=== PATIENT | female | born 1990 | race Caucasian/White ===

== ENCOUNTER 2017-01-20 21:54 | Emergency (ER) | payer MEDICAID ==
[~2017-01-20] VITALS: Ht 154.9 cm; Wt 92.9 kg
[~2017-01-20 21:54] MED LIST: ACET-62 PO; FLUT1DIS5 ORAL INH; IBUP-1547 PO; MONT10TA25 PO; OLAN2.5T22 PO; ONDA4TAB7 PO; PALI3TAB PO; PROC10TA PO; SUCR1TAB PO
--- OUTSIDE RECORDS SUMMARY | 2017-01-20 21:58 | XMS REPORT | Referral Summary ---
Author Author [facility] Organization [facility] Address Unknown Phone Unavailable Care Team Providers Care Mortar Maker Name Role Phone [place] [facility] Primary Care Physician Unavailable Encounter [facility] [id number] Date(s): 04/15/16 - 04/16/16 [facility] [address] [place] [address] Discharge Diagnosis: Dizziness Discharge Diagnosis: Carbon Monoxide Exposure Discharge Disposition: 01-Home or Self Care Attending Physician: Presley Frias MD Admitting Physician: Presley Frias MD Vital Signs Most recent to 1 oldest [Reference Range]: Temperature Oral 36.1 degC [35.8-37.3 degC] (04/15/16 10:28 PM) Peripheral Pulse 88 bpm Rate [60-100 bpm] (04/15/16 10:28 PM) Heart Rate Monitored 0 bpm [60-100 bpm] *LOW* (04/15/16 11:00 PM) Respiratory Rate 18 br/min [14-20 br/min] (04/15/16 11:00 PM) Blood Pressure 127/85 mmHg [90-140/60-90 mmHg] (04/15/16 11:00 PM) Mean Arterial 101 mmHg Pressure, Cuff (04/15/16 11:00 PM) SpO2 87 % (04/15/16 10:28 PM) Problem List Condition Effective Dates Status Health Status Informant Acid Active patient reflux(Confirmed) Acute Active pain(Confirmed) ADD(Confirmed) Active Allergic rhinitis, Active cause unspecified(Confirme d) Anemia(Confirmed) Active Anxiety state Active (finding)(Confirmed) Asthma(Confirmed) Active Asthma without Active status asthmaticus (disorder)(Confirmed ) Atypical chest Active pain(Confirmed) Bronchitis(Confirmed Resolved ) Chest Resolved pain(Confirmed) Chest wall Active pain(Confirmed) Contusion of Active hand(Confirmed) Acute Active costochondritis(Conf irmed) Depressive disorder, Active not elsewhere classified(Confirmed ) 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) Heart Active murmur(Confirmed) Hiatal Active hernia(Confirmed) IBS (irritable bowel Active syndrome)(Confirmed) Morbid Active patient obesity(Confirmed) Morbid Active patient obesity(Confirmed) L CN 10/30/13 Active Palsy(Confirmed) Seizure Active disorder(Confirmed) 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 Medications acetaminophen 500 mg oral tablet 500 mg 1 tabs, Oral, q4hr, as needed for pain, # 12 tabs, 0 Refill(s) Start Date: 01/25/16 Stop Date: 01/24/17 Status: Ordered Advair Diskus 250 mcg-50 mcg inhalation powder See Instructions, INHALE 1 PUFF BY INHALATION ROUTE 2 TIMES EVERY DAY IN THE MORNING AND EVENING APPROXIMATELY 12 HOURS APART, # 1 unknown unit, eRx: [id number], INHALE 1 PUFF BY INHALATION ROUTE 2 TIMES EVERY DAY IN THE MORNING AND EV... Start Date: 02/25/15 Status: Ordered Carafate 1 g/10 mL oral suspension 10 mL, Oral, QIDACHS, # 280 mL, 0 Refill(s), Pharmacy: [facility], 10 mL Oral QIDACHS Start Date: 02/15/16 Status: Ordered cetirizine 10 mg oral tablet 10 mg 1 tabs, Oral, Daily, # 30 tabs, 5 Refill(s), Pharmacy: [facility] [id number], 1 tabs Oral Daily Start Date: 09/01/15 Status: Ordered Claritin mg, 0 Refill(s) Start Date: 01/23/16 Status: Ordered cyclobenzaprine 10 mg oral tablet 10 mg 1 tabs, Oral, TID, as needed for spasm, # 12 tabs, 0 Refill(s) Start Date: 01/30/16 Stop Date: 01/29/17 Status: Ordered ibuprofen 600 mg oral tablet 600 mg 1 tabs, Oral, QID, as needed for pain, # 40 tabs, 0 Refill(s) Start Date: 03/04/16 Status: Ordered Invega Oral, qAM, 0 Refill(s) Start Date: 03/03/16 Status: Ordered loratadine 0 Refill(s) Start Date: 01/23/16 Status: Ordered meloxicam 15 mg oral tablet 15 mg 1 tabs, Oral, Daily, # 30 tabs, 0 Refill(s) Start Date: 12/12/15 Status: Ordered ProAir HFA 90 mcg/inh inhalation aerosol See Instructions, 2-4 puffs every 4-6 hrs prn., # 1 Each, 1 Refill(s), Pharmacy : [facility] [id number] Start Date: 06/11/15 Status: Ordered promethazine 25 mg oral tablet 25 mg 1 tabs, Oral, q4hr, Nausea or Vomiting, # 12 tabs, 0 Refill(s) Start Date: 03/07/16 Status: Ordered Singulair qPM, 0 Refill(s) Start Date: 01/23/16 Status: Ordered Vitamin D3 1,000 Intl_Units, Oral, Daily, 0 Refill(s) Start Date: 10/26/14 Status: Ordered Zofran 4 mg oral tablet 4 mg 1 tabs, Oral, Once, # 10 tabs, 0 Refill(s) Start Date: 03/19/16 Status: Ordered Results Blood Gases Most recent to 1 2 oldest [Reference Range]: pH [7.35-7.45] 7.39 (04/15/16 11:50 PM) pCO2 Art [35-45 37 mmHg mmHg] (04/15/16 11:50 PM) Bicarbonate [22-26 22 mEq/L mEq/L] (04/15/16 11:50 PM) Base Excess Art -3 [0-2] *LOW* (04/15/16 11:50 PM) O2 Sat Art 96.4 % [90.0-97.0 %] (04/15/16 11:50 PM) pO2 Art [80-100 87 mmHg mmHg] (04/15/16 11:50 PM) O2 Panel Room Air Room Air (04/15/16 11:50 PM) (04/15/16 11:50 PM) Spec Site Radial-R Radial-R (04/15/16 11:50 PM) (04/15/16 11:50 PM) Chemistry Most recent to 1 2 oldest [Reference Range]: Sodium Venous 138 mEq/L [136-144 mEq/L] (04/16/16 12:39 AM) Potassium Venous 3.9 mEq/L 1 [3.6-5.1 mEq/L] (04/16/16 12:39 AM) Calcium Ionized 1.22 mmol/L Venous [1.19-1.41 (04/16/16 12:39 AM) mmol/L] Total CO2 Venous 21 mEq/L [25-29 mEq/L] *LOW* (04/16/16 12:39 AM) HGB Venous NPT 9.5 gm/dL [12.0-16.0 gm/dL] *LOW* (04/16/16 12:39 AM) HCT Venous 28.0 % [37.0-47.0 %] *LOW* (04/16/16 12:39 AM) Glucose Venous 99 mg/dL [70-100 mg/dL] (04/16/16 12:39 AM) BUN Venous [4-20] 9 (04/16/16 12:39 AM) Creatinine Venous 0.8 mg/dL [0.4-1.0 mg/dL] (04/16/16 12:39 AM) Venous CL [99-109 108 mEq/L mEq/L] (04/16/16 12:39 AM) Anion Gap, Darron 9 [3-20] (04/16/16 12:39 AM) 1Result Comment: This test was performed on a whole blood specimen. The presence or absence of hemolysis cannot be assessed. Hemolysis can falsely elevate potassium levels. Normals are for venous specimens only. Immunizations Vaccine Date Refusal Reason pneumococcal 23-polyvalent vaccine 11/18/14 Procedures Procedure Date Related Diagnosis Body Site Arterial puncture, withdrawal of blood for 04/15/16 diagnosis Esophagogastroduodenoscopy Foreign Body 01/06/16 Removal1 Procedure with Anesthesia2 01/06/16 Esophagogastroduodenoscopy Balloon Dilat3 02/14/15 Examination Under Anesthesia4 02/14/15 Adenoidectomy Bilateral tubal ligation Bronchoscope Cardiac catheterization, combined right and left heart Tonsillectomy Tympanostomy [place] tooth 1auto-populated from documented surgical case 2auto-populated from documented surgical case 3auto-populated from documented surgical case 4auto-populated from documented surgical case Social History Social History Type Response Smoking Status Former smoker; Type: Cigarettes; Tobacco use per day: 1 Pack ; Concerns about tobacco use in household: No1, 2 1pt quit smoking 1 month ago 2quit 05/2015 Assessment and Plan No data available for this section
--- OUTSIDE RECORDS SUMMARY | 2017-01-20 21:58 | XMS REPORT | Referral Summary ---
Author Organization Unknown Address Unknown Phone Unavailable Care Team Providers Care Supervisor General Name Role Phone Pardeep Poole Primary Care Physician [phone] Encounter [facility] Date(s): 12/30/14 - 12/30/14 [facility] [address] [place] [id number] Discharge Diagnosis: Hernia, hiatal Discharge Disposition: Home or Self Care Attending Physician: Carly Crump APRN Admitting Physician: Carly Crump APRN Vital Signs Most recent to 1 oldest [Reference Range]: Peripheral Pulse 81 bpm Rate [60-100 bpm] (12/30/14 8:52 AM) Respiratory Rate 18 br/min [14-20 br/min] (12/30/14 8:52 AM) Blood Pressure 110/80 mmHg [90-140/60-90 mmHg] (12/30/14 8:52 AM) Most recent to 1 oldest [Reference Range]: SpO2 97 % (12/30/14 8:52 AM) Problem List Condition Effective Dates Status Health Status Informant Acid Active patient reflux(Confirmed) Acute Active pain(Confirmed) ADD(Confirmed) Active Allergic rhinitis, Active cause unspecified(Confirme d) Anemia(Confirmed) Active Anxiety state Active (finding)(Confirmed) Asthma without Active status asthmaticus (disorder)(Confirmed ) Bronchitis(Confirmed Resolved ) Chest Resolved pain(Confirmed) Depressive disorder, Active not elsewhere classified(Confirmed ) 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 Medications acetaminophen 500 mg/5 mL oral liquid 10 mL, Oral, q6hr, as needed for pain, # 300 mL, 0 Refill(s), Pharmacy: [facility] [id number], 10 mL Oral q6hr,PRN:as needed for pain Start Date: 12/24/14 Status: Ordered Advair Diskus 250 mcg-50 mcg inhalation powder See Instructions, INHALE 1 PUFF BY INHALATION ROUTE 2 TIMES EVERY DAY IN THE MORNING AND EVENING APPROXIMATELY 12 HOURS APART, # 1 unknown unit, 1 Refill(s) , eRx: [facility] [id number], INHALE 1 PUFF BY INHALATION ROUTE 2 TIMES EVERY DAY IN THE M... Special Instructions: INHALE 1 PUFF BY INHALATION ROUTE 2 TIMES EVERY DAY IN THE MORNING AND EVENING APPROXIMATELY 12 HOURS APART Start Date: 12/02/14 Status: Ordered Flonase 50 mcg/inh nasal spray 2 sprays, Nasal, Daily, # 1 Each, 5 Refill(s), Pharmacy: [facility] [id number] Start Date: 12/03/14 Status: Ordered FLUoxetine 20 mg, Oral, qAM, 0 Refill(s) Start Date: 11/18/14 Status: Ordered imipramine 25 mg oral tablet 2 tabs, Oral, Bedtime (once a day), # 60 tabs, 3 Refill(s), Pharmacy: [facility] [id number], 2 tabs Oral Bedtime (once a day) Start Date: 12/30/14 Status: Ordered Latuda 60 mg, Oral, qPM, with food, 0 Refill(s) Special Instructions: with food Start Date: 03/29/14 Status: Ordered levETIRAcetam 1,500 mg, Oral, BID, 0 Refill(s) Start Date: 11/18/14 Status: Ordered loratadine 10 mg, Oral, Daily, 0 Refill(s) Start Date: 10/26/14 Status: Ordered mirtazapine 45 mg, Oral, Bedtime (once a day), 0 Refill(s) Start Date: 11/18/14 Status: Ordered [place] 5 mg-325 mg oral tablet 1 tabs, Oral, q6hr, as needed for pain, 0 Refill(s) Start Date: 12/19/14 Status: Ordered pantoprazole 40 mg oral delayed release tablet 1 tabs, Oral, BID, # 60 tabs, 0 Refill(s) Start Date: 12/30/14 Status: Ordered Vimpat 100 mg oral tablet 1 tabs, Oral, BID, # 60 tabs, 2 Refill(s) Start Date: 10/08/14 Status: Ordered Vitamin D3 1,000 Intl_Units, Oral, Daily, 0 Refill(s) Start Date: 10/26/14 Status: Ordered Zofran ODT 4 mg oral tablet, disintegrating 1 tabs, Oral, TID, as needed for nausea/vomiting, # 10 tabs, 0 Refill(s) Start Date: 11/21/14 Status: Ordered Results No data available for this section Immunizations Vaccine Date Refusal Reason pneumococcal 23-polyvalent vaccine 11/18/14 Procedures Procedure Date Related Diagnosis Body Site Adenoidectomy Bilateral tubal ligation Bronchoscope Tonsillectomy Tympanostomy [place] tooth Social History Social History Type Response Smoking Status Former smoker Assessment and Plan Extracted from: Title: Office Visit Note Author: Carly Crump APRN Date: 12/30/14 Assessment/Plan Hernia, hiatal Handout from [facility] to explain physiology. She may have continued chest pain. Will augment current plan with trial of Imipramine (per [facility]) and follow in one month. Continue Protonix as directed. Ordered: Office Visit Level 4 Est 08122 Orders: imipramine, 2 tabs, Oral, Bedtime (once a day), # 60 tabs, 3 Refill(s) , [id number], 2 tabs Oral Bedtime (once a day)
--- OUTSIDE RECORDS SUMMARY | 2017-01-20 21:58 | XMS REPORT | Continuity of Care Document ---
Author Author [facility] Organization [facility] Address Unknown Phone Unavailable Care Team Providers Care Screen Printing Cloth Spreader Name Role Phone Sarah Poole Primary Care Physician [phone] Source Comments Some departments are not documenting in the electronic medical record. If you do not see the information that you expected, contact Release of Information in the Health Information Management department at [phone] for further assistance in locating additional records.[facility] Active Allergies and Adverse Reactions Allergen Noted Date Severity Reactions Comments Hay Fever And Allergy 01/21/2014 SNEEZING Relief Nexium 07/11/2014 RASH Omeprazole 01/21/2014 RASH Current Medications Prescription Sig. Disp. Refills Start End Date Status Date FLUoxetine (PROZAC) 20 Take 20 mg by mouth Active mg/5 mL oral solution daily. fluticasone-salmeterol Inhale 1 Puff by mouth Active (ADVAIR DISKUS) 250-50 every 12 hours. mcg inhalation disk loratadine (CLARITIN) 10 Take 10 mg by mouth Active mg tablet daily. hydrocortisone (ANTI-ITCH Apply to affected area Active (HC)) 1 % topical cream as Needed. albuterol 0.5% Inhale 2.5 mg solution as Active (PROVENTIL; VENTOLIN) 2.5 directed every 6 hours as mg/0.5 mL nebu nebulizer needed. solution albuterol (PROAIR HFA) 90 Inhale 2 Puffs by mouth Active mcg/actuation inhaler every 6 hours as needed. acetaminophen (TYLENOL) Take 15 mg/kg by mouth Active 160 mg/5 mL oral liquid every 4 hours as needed. LEVETIRACETAM (KEPPRA PO) Take 50 mg by mouth twice Active daily. mirtazapine (REMERON) 45 Take 45 mg by mouth at Active mg tablet bedtime daily. LURASIDONE HCL (LATUDA Take 40 mg by mouth Active PO) daily. Pantoprazole 40 mg grps Take 40 mg by mouth twice 60 Each 1 11/25/19 Active daily before meals. 15 Active Problems Problem Noted Date Non-compliant patient 11/11/2014 Esophagitis 07/11/2014 Dysphagia 01/23/2014 Overview: To solids Esophageal stricture 01/23/2014 Developmental delay 01/23/2014 Immunizations Name Dates Previously Given Next Due Pneumococcal Vaccine 05/16/2014 (23-[place] Adult) Social History Tobacco Use Types Packs/Day Years Used Date Former Smoker Cigarettes 0.2 6 12/21/2013 - 05/18/2014 Smokeless Tobacco: Never Used Comments: 1-2 cig aday Alcohol Use Drinks/Week oz/Week Comments Yes 1 Cans of 0.6 using two years beer Last Filed Vital Signs Vital Sign Reading Time Taken Blood Pressure 123/80 11/11/2014 3:43 PM DRAPERY CUTTER MACHINE Pulse 75 11/11/2014 3:43 PM DRAPERY CUTTER MACHINE Temperature 36.4 C (97.6 F) 11/11/2014 3:43 PM DRAPERY CUTTER MACHINE Respiratory Rate 16 11/11/2014 3:43 PM DRAPERY CUTTER MACHINE Height 1.549 m (5' 1") 11/11/2014 3:43 PM DRAPERY CUTTER MACHINE Weight 106.595 kg (235 lb) 11/11/2014 3:43 PM DRAPERY CUTTER MACHINE Body Mass Index 44.43 11/11/2014 3:43 PM DRAPERY CUTTER MACHINE Oxygen Saturation 99% 08/20/2014 10:54 AM DRAPERY CUTTER MACHINE Plan of Care Health Maintenance Due Date Last Done Comments Physical (Comprehensive) 1996 Exam Pertussis Vaccine 2000 Tetanus Vaccine 2006 Cervical Cancer Screening 2010 Influenza Vaccine 06/17/2017 Results from Last 3 Months Not on file
--- OUTSIDE RECORDS SUMMARY | 2017-01-20 21:58 | XMS REPORT ---
Author Author [place], [facility] - Organization Unknown Address Unknown Phone Unavailable Allergies, Adverse Reactions, Alerts * Prilosec causes Adverse Reaction. * No Latex Allergy. * No IV Contrast Allergy. Problems * Anxiety* Status:Active. * Depression* Status:Active. * Family Problems* Status:Active. * Patient Currently * Status:Active. Procedures No relevant procedures performed. Medication Medication reconciliation has not been performed. Results LAB--BEDSIDE TESTING from 07/22/2013 11:21 PMPregnancy Screen, Urine NPT Negative LAB--URINE TESTS from 07/22/2013 11:16 PMAppearance Clear Bilirubin Negative (Negative ) Blood Trace A (Negative ) Color Yellow Glucose Negative (Negative ) Ketones, Urine Negative (Negative ) Leukocytes Esterase Trace A (Negative ) Nitrites Negative (Negative ) pH, Urine 7.0 (5.0-8.0 ) Protein Negative (Negative ) Specific [place] 1.024 (1.003-1.030 ) Collection Type: Clean Catch Urobilinogen Negative mg/dL (-<1.0 mg/dL) Epithelial Cells 0-2 /HPF RBC 0-2 /HPF (0-2 /HPF) WBC 2-5 /HPF (0-4 /HPF)
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
--- OUTSIDE RECORDS SUMMARY | 2017-01-20 21:59 | XMS REPORT | Referral Summary ---
Author Author [facility] Organization [facility] Address Unknown Phone Unavailable Care Team Providers Care Crewman [employer] Name Role Phone [facility] Primary Care Physician Unavailable Encounter TERRELL [id number] Date(s): 03/03/16 - 03/04/16 [facility] [address] [place] [address] [phone] Discharge Diagnosis: Adnexal cyst Discharge Diagnosis: Abdominal pain in female Discharge Disposition: 01-Home or Self Care Attending Physician: Presley Firas MD Admitting Physician: Presley Frias MD Referring Physician: Self Referred, X Vital Signs Most recent to 1 oldest [Reference Range]: Temperature Oral 37.1 degC [35.8-37.3 degC] (03/03/16 8:12 PM) Peripheral Pulse 98 bpm Rate [60-100 bpm] (03/04/16 12:10 AM) Heart Rate Monitored 97 bpm [60-100 bpm] (03/03/16 11:04 PM) Respiratory Rate 18 br/min [14-20 br/min] (03/04/16 12:10 AM) Blood Pressure 104/77 mmHg [90-140/60-90 mmHg] (03/04/16 12:10 AM) SpO2 95 % (03/04/16 12:10 AM) Problem List Condition Effective Dates Status Health Status Informant Acid Active patient reflux(Confirmed) Acute Active pain(Confirmed) ADD(Confirmed) Active Allergic rhinitis, Active cause unspecified(Confirme d) Anemia(Confirmed) Active Anxiety state Active (finding)(Confirmed) Asthma(Confirmed) Active Asthma without Active status asthmaticus (disorder)(Confirmed ) Atypical chest Active pain(Confirmed) Bronchitis(Confirmed Resolved ) Chest Resolved pain(Confirmed) Chest wall Active pain(Confirmed) Acute Active costochondritis(Conf irmed) Depressive disorder, Active [...] HOURS APART, # 1 unknown unit, eRx: [facility] [id number], INHALE 1 PUFF BY INHALATION ROUTE 2 TIMES EVERY DAY IN THE MORNING AND EV... Start Date: 02/25/15 Status: Ordered Carafate 1 g/10 mL oral suspension 10 mL, Oral, QIDACHS, # 280 mL, 0 Refill(s), Pharmacy: [facility], 10 mL Oral QIDACHS Start Date: 02/15/16 Status: Ordered cetirizine 10 mg oral tablet 10 mg 1 tabs, Oral, Daily, # 30 tabs, 5 Refill(s), Pharmacy: [facility] [id number], 1 tabs Oral Daily Start Date: 09/01/15 [...] # 1 Each, 1 Refill(s), Pharmacy : [facility] [id number] Start Date: 06/11/15 Status: Ordered Singulair qPM, 0 Refill(s) Start Date: 01/23/16 Status: Ordered Vitamin D3 1,000 Intl_Units, Oral, Daily, 0 Refill(s) Start Date: 10/26/14 Status: Ordered Results Hematology Most recent to 1 oldest [Reference Range]: WBC [4.8-10.8 4.0 10*3/uL 10*3/uL] *LOW* (03/03/16 9:04 PM) RBC [4.00-5.20] 4.67 (03/03/16 9:04 PM) Hgb [12.0-16.0 11.5 gm/dL gm/dL] *LOW* (03/03/16 9:04 PM) Hct [37.0-47.0 %] 37.9 % (03/03/16 9:04 PM) MCV [82.0-99.0 fL] 81.2 fL *LOW* (03/03/16 9:04 PM) MCH [27.0-32.0 pg] 24.6 pg *LOW* (03/03/16 9:04 PM) MCHC [32.0-36.0 30.3 gm/dL gm/dL] *LOW* (03/03/16 9:04 PM) RDW [11.5-14.5 %] 18.4 % *HI* (03/03/16 9:04 PM) Platelet [150-400 203 10*3/uL 10*3/uL] (03/03/16 9:04 PM) MPV [9.4-12.4 fL] 9.7 fL (03/03/16 9:04 PM) Immature 0.0 % Granulocytes (03/03/16 9:04 PM) [0.0-1.0 %] Neutrophils [51-75 51 % %] (03/03/16 9:04 PM) Lymphocytes [20-46 31 % %] (03/03/16 9:04 PM) Monocytes [4-11 %] 18 % *HI* (03/03/16 9:04 PM) Eosinophils [0-4 %] 1 % (03/03/16 9:04 PM) Basophils [0-2 %] 1 % (03/03/16 9:04 PM) Neutro Absolute 2.02 10*3 [1.90-7.00 10*3] (03/03/16 9:04 PM) Lymph Absolute 1.22 10*3 [0.80-3.30 10*3] (03/03/16 9:04 PM) [place]ades Absolute 0.71 10*3 [0.30-1.00 10*3] (03/03/16 9:04 PM) Eos Absolute 0.02 10*3 [0.00-0.50 10*3] (03/03/16 9:04 PM) Baso Absolute 0.02 10*3 [0.00-0.20 10*3] (03/03/16 9:04 PM) Nucleated RBC 0.0 /100 WBC Automated [0 /100 (03/03/16 9:04 PM) WBC] Chemistry Most recent to 1 oldest [Reference Range]: Sodium Lvl [136-144 137 mEq/L mEq/L] (03/03/16 9:04 PM) Potassium Lvl 4.0 mEq/L [3.6-5.1 mEq/L] (03/03/16 9:04 PM) Chloride [99-109 104 mEq/L mEq/L] (03/03/16 9:04 PM) CO2 [22-32 mEq/L] 27 mEq/L (03/03/16 9:04 PM) AGAP [3-20] 6 (03/03/16 9:04 PM) BUN [4-20 mg/dL] 8 mg/dL (03/03/16 9:04 PM) Glucose Lvl [70-100 93 mg/dL mg/dL] (03/03/16 9:04 PM) Creatinine Lvl 0.64 mg/dL [0.44-1.03 mg/dL] (03/03/16 9:04 PM) eGFR [>60] >60 1 (03/03/16 9:04 PM) Calcium Lvl 9.2 mg/dL [8.6-10.0 mg/dL] (03/03/16 9:04 PM) Albumin Lvl [3.5-4.8 3.2 gm/dL gm/dL] *LOW* (03/03/16 9:04 PM) Total Protein 7.3 gm/dL [6.1-7.9 gm/dL] (03/03/16 9:04 PM) Globulin [1.9-4.3 4.1 gm/dL gm/dL] (03/03/16 9:04 PM) ALT [14-54 U/L] 14 U/L (03/03/16 9:04 PM) AST [15-41 U/L] 15 U/L (03/03/16 9:04 PM) Alk Phos [26-104 80 U/L U/L] (03/03/16 9:04 PM) Bili Total [0.2-1.2 0.6 mg/dL 2 mg/dL] (03/03/16 9:04 PM) Lipase Lvl [8-48 25 U/L U/L] (03/03/16 9:04 PM) U Beta hCG Ql Negative (03/03/16 8:32 PM) 1Result Comment: Multiply eGFR results by 1.21 for race. 2Result Comment: Naproxen, specifically the metabolite O-desmethylnaproxen, may cause spurious elevation in Total Bilirubin levels. Urinalysis Most recent to 1 oldest [Reference Range]: UA Color Yellow (03/03/16 8:32 PM) UA Appear Cloudy *ABN* (03/03/16 8:32 PM) UA pH [5.0-8.0] 7.0 (03/03/16 8:32 PM) UA Leuk Est Negative [Negative] (03/03/16 8:32 PM) UA Nitrite Negative [Negative] (03/03/16 8:32 PM) UA Protein Negative [Negative] (03/03/16 8:32 PM) UA Glucose Negative [Negative] (03/03/16 8:32 PM) UA Ketones Negative [Negative] (03/03/16 8:32 PM) UA Urobilinogen Negative [<1.0] (03/03/16 8:32 PM) UA Bili [Negative] Negative (03/03/16 8:32 PM) UA Blood [Negative] Pos 2+ *ABN* (03/03/16 8:32 PM) UA Spec Grav 1.015 [1.003-1.030] (03/03/16 8:32 PM) Type Clean Catch (03/03/16 8:32 PM) UA WBC [0-4] 0-2 (03/03/16 8:32 PM) UA RBC [0-2] 2-5 (03/03/16 8:32 PM) Epithelial Cells None Seen (03/03/16 8:32 PM) UA Bacteria Occasional *ABN* (03/03/16 8:32 PM) Crystals Amorphous (03/03/16 8:32 PM) Immunizations Vaccine Date Refusal Reason pneumococcal 23-polyvalent vaccine 11/18/14 Procedures Procedure Date Related Diagnosis Body Site Esophagogastroduodenoscopy Foreign Body 01/06/16 Removal1 Procedure with Anesthesia2 01/06/16 Esophagogastroduodenoscopy Balloon Dilat3 02/14/15 Examination Under Anesthesia4 02/14/15 Adenoidectomy Bilateral tubal ligation Bronchoscope Cardiac catheterization, combined right and left heart Tonsillectomy Tympanostomy [place] tooth 1auto-populated from documented surgical case 2auto-populated [...]
--- OUTSIDE RECORDS SUMMARY | 2017-01-20 21:59 | XMS REPORT | Referral Summary ---
Author Author [facility] Organization [facility] Address Unknown Phone Unavailable Care Team Providers Care Summer School Coordinator Name Role Phone Imelda Martin Primary Care Physician [phone] Encounter Date(s): 04/26/15 - 04/27/15 [facility] [address] [place], [place] [address] Discharge Diagnosis: Abdominal pain Final: OTHER CHEST PAIN Final: ABDOMINAL PAIN, EPIGASTRIC Final: TOBACCO USE DISORDER Discharge Diagnosis: Atypical chest pain Discharge Disposition: 01-Home or Self Care Attending Physician: Miguel Uriostegui MD Admitting Physician: Miguel Uriostegui MD Referring Physician: Self Referred, X Vital Signs Most recent to 1 oldest [Reference Range]: Temperature Oral 36.8 degC [35.8-37.3 degC] (04/26/15 11:26 PM) Peripheral Pulse 87 bpm Rate [60-100 bpm] (04/27/15 12:57 AM) Heart Rate Monitored 128 bpm [60-100 bpm] *HI* (04/27/15 3:30 AM) Respiratory Rate 18 br/min [14-20 br/min] (04/27/15 3:30 AM) Blood Pressure 135/99 mmHg [90-140/60-90 mmHg] (04/27/15 3:30 AM) Mean Arterial 105 mmHg Pressure, Cuff (04/27/15 3:30 AM) SpO2 95 % (04/27/15 3:30 AM) Problem List Condition Effective Dates Status [...] pain, # 300 mL, 0 Refill(s), Pharmacy: [facility] [id number], 10 mL Oral q6hr,PRN:as needed for pain Start Date: 12/24/14 Status: Ordered Advair Diskus 250 mcg-50 mcg inhalation powder See Instructions, INHALE 1 PUFF BY INHALATION ROUTE 2 TIMES EVERY DAY IN THE MORNING AND EVENING APPROXIMATELY 12 HOURS APART, # 1 unknown unit, eRx: [facility] [id number], INHALE 1 PUFF BY INHALATION ROUTE 2 TIMES EVERY DAY IN THE MORNING AND EV... Start Date: 02/25/15 Status: Ordered Atrovent 42 mcg/inh nasal spray 2 sprays, Nasal, TID, # 2 Each, 5 Refill(s), Pharmacy: [facility] [id number] Start Date: 06/11/15 Stop Date: 06/11/16 Status: Ordered Carafate 1 g oral tablet 1 g 1 tabs, Oral, QID, Dissolve in water and drink, # 40 tabs, 0 Refill(s) Start Date: 08/31/15 Status: Ordered cetirizine 10 mg oral tablet 10 mg 1 tabs, Oral, Daily, # 30 tabs, 5 Refill(s), Pharmacy: [facility] [address], 1 tabs Oral Daily Start Date: 09/01/15 Status: Ordered Linzess 290 mcg oral capsule 1 caps, Oral, Daily, # 30 caps, 6 Refill(s), Pharmacy: [facility] [id number], 1 caps Oral Daily Start Date: 02/24/15 Status: Ordered loratadine 10 mg oral tablet 10 mg, Oral, Daily, # 30 tabs, 5 Refill(s), Pharmacy: [facility] [id number] , 10 mg Oral Daily Start Date: [...] # 1 Each, 1 Refill(s), Pharmacy : [facility] [id number] Start Date: 06/11/15 Status: Ordered traZODone Oral, 0 Refill(s) Start Date: 04/05/15 Status: Ordered Viibryd Oral, Daily, 0 Refill(s) Start Date: 04/05/15 Status: Ordered Vitamin D3 1,000 Intl_Units, Oral, Daily, 0 Refill(s) Start Date: 10/26/14 Status: Ordered Results Hematology Most recent to 1 oldest [Reference Range]: WBC [4.8-10.8 9.3 10*3/uL 10*3/uL] (04/27/15 1:01 AM) RBC [4.00-5.20 4.19 10*6/uL 10*6/uL] (04/27/15 1:01 AM) Hgb [12.0-16.0 11.0 gm/dL gm/dL] *LOW* (04/27/15 1:01 AM) Hct [37.0-47.0 %] 35.2 % *LOW* (04/27/15 1:01 AM) MCV [82.0-99.0 fL] 84.0 fL (04/27/15 1:01 AM) MCH [27.0-32.0 pg] 26.3 pg *LOW* (04/27/15 1:01 AM) MCHC [32.0-36.0 31.3 gm/dL gm/dL] *LOW* (04/27/15 1:01 AM) RDW [11.5-14.5 %] 16.9 % *HI* (04/27/15 1:01 AM) Platelet [150-400 268 10*3/uL 10*3/uL] (04/27/15 1:01 AM) MPV [9.4-12.4 fL] 9.7 fL (04/27/15 1:01 AM) Immature 0.1 % Granulocytes (04/27/15:01 AM) [0.0-1.0 %] Neutrophils [51-75 71 % %] (04/27/15 1:01 AM) Lymphocytes [20-46 20 % %] (04/27/15 1:01 AM) Monocytes [4-11 %] 7 % (04/27/15 1:01 AM) Eosinophils [0-4 %] 1 % (04/27/15 1:01 AM) Basophils [0-2 %] 0 % (04/27/15 1:01 AM) Neutro Absolute 6.65 10*3 [1.90-7.00 10*3] (04/27/15 1:01 AM) Lymph Absolute 1.83 10*3 [0.80-3.30 10*3] (04/27/15 1:01 AM) Arthur Absolute 0.67 10*3 [0.30-1.00 10*3] (04/27/15 1:01 AM) Eos Absolute 0.13 10*3 [0.00-0.50 10*3] (04/27/15 1:01 AM) Baso Absolute 0.02 10*3 [0.00-0.20 10*3] (04/27/15 1:01 AM) Chemistry Most recent to 1 oldest [Reference Range]: Sodium Lvl [136-144 134 mEq/L mEq/L] *LOW* (04/27/15 1:01 AM) Potassium Lvl 3.8 mEq/L [3.6-5.1 mEq/L] (04/27/15 1:01 AM) Chloride [99-109 104 mEq/L mEq/L] (04/27/15 1:01 AM) CO2 [22-32 mEq/L] 24 mEq/L (04/27/15 1:01 AM) AGAP [3-20] 6 (04/27/15 1:01 AM) BUN [4-20 mg/dL] 9 mg/dL (04/27/15 1:01 AM) Glucose Lvl [70-100 109 mg/dL mg/dL] *HI* (04/27/15 1:01 AM) Creatinine Lvl 0.64 mg/dL [0.44-1.03 mg/dL] (04/27/15 1:01 AM) eGFR [>60] >60 1 (04/27/15 1:01 AM) Calcium Lvl 8.7 mg/dL [8.6-10.0 mg/dL] (04/27/15 1:01 AM) Albumin Lvl [3.5-4.8 3.1 gm/dL gm/dL] *LOW* (04/27/15 1:01 AM) Total Protein 6.7 gm/dL [6.1-7.9 gm/dL] (04/27/15 1:01 AM) Globulin [1.9-4.3 3.6 gm/dL gm/dL] (04/27/15 1:01 AM) ALT [14-54 U/L] 15 U/L (04/27/15 1:01 AM) AST [15-41 U/L] 17 U/L (04/27/15 1:01 AM) Alk Phos [26-104 78 U/L U/L] (04/27/15 1:01 AM) Bili Total [0.2-1.2 0.6 mg/dL 2 mg/dL] (04/27/15 1:01 AM) Troponin [<0.06 <0.05 ng/mL ng/mL] (04/27/15 1:01 AM) Lipase Lvl [8-48 28 U/L U/L] (04/27/15 1:01 AM) U Beta hCG Ql Negative [Negative] (04/27/15 1:00 AM) 1Result Comment: Multiply eGFR results by 1.21 for race. 2Result Comment: Naproxen, specifically the metabolite O-desmethylnaproxen, may cause spurious elevation in Total Bilirubin levels. Toxicology Most recent to 1 oldest [Reference Range]: U Amphetamine Scrn Negative (04/27/15 1:00 AM) U Cocaine Scrn Negative (04/27/15 1:00 AM) U Cannab Scrn Negative (04/27/15 1:00 AM) U Opiate Scrn Positive *ABN* (04/27/15 1:00 AM) U PCP Scrn Negative (04/27/15 1:00 AM) U Benzodiazepine Positive Scrn *ABN* (04/27/15 1:00 AM) U Barbiturate Scrn Positive *ABN* (04/27/15 1:00 AM) Methadone Lvl Negative (04/27/15 1:00 AM) Tricyclics Positive 1 *ABN* (04/27/15 1:00 AM) 1Result Comment: Cut-off concentrations: Amphetamines: 1000 ng/mL Cocaine: 300 ng/mL Cannabinoid: 50 ng/mL Opiate: 300 ng/mL Phencyclidine (PCP): 25 ng/mL Benzodiazepine: 200 ng/mL Barbiturate: 200 ng/mL Methadone: 300 ng/mL Tricyclic: 300 ng/mL The urine drug screen assays are qualitative screens. A more specific GC/MS method must be performed to obtain a confirmed analytical result. Unconfirmed screening results must not be used for non-medical purposes(e.g. employment or legal testing) Urinalysis Most recent to 1 oldest [Reference Range]: UA Color Adri *ABN* (04/27/15 1:00 AM) UA Appear Turbid *ABN* (04/27/15 1:00 AM) UA pH [5.0-8.0] 7.0 (04/27/15 1:00 AM) UA Leuk Est Negative [Negative] (04/27/15 1:00 AM) UA Nitrite Negative [Negative] (04/27/15 1:00 AM) UA Protein Negative [Negative] (04/27/15 1:00 AM) UA Glucose Negative [Negative] (04/27/15 1:00 AM) UA Ketones Negative [Negative] (04/27/15 1:00 AM) UA Urobilinogen 4.0 mg/dL [<1.0 mg/dL] *ABN* (04/27/15 1:00 AM) UA Bili [Negative] Positive *ABN* (04/27/15 1:00 AM) UA Blood [Negative] Trace *ABN* (04/27/15 1:00 AM) UA Spec Grav 1.038 [1.003-1.030] *HI* (04/27/15 1:00 AM) Type Clean Catch (04/27/15 1:00 AM) UA WBC [0-4] 2-5 (04/27/15 1:00 AM) UA RBC [0-2] 0-2 (04/27/15 1:00 AM) Epithelial Cells 2-5 (04/27/15 1:00 AM) Crystals Ca Ox (04/27/15 1:00 AM) Crystals2 Amorphous (04/27/15 1:00 AM) Immunizations Vaccine Date Refusal Reason pneumococcal 23-polyvalent vaccine 11/18/14 Procedures Procedure Date Related Diagnosis Body Site Esophagogastroduodenoscopy Balloon Dilat1 02/14/15 Examination Under Anesthesia2 02/14/15 Adenoidectomy Bilateral tubal ligation Bronchoscope Cardiac catheterization, combined right and left heart Tonsillectomy Tympanostomy [place] tooth 1auto-populated from documented surgical case 2auto-populated from documented surgical case Social History Social History Type Response Smoking Status Former smoker; Type: Cigarettes; Tobacco use per day: 1 Pack1 1quit 05/2015 Assessment and Plan No data available for this section
--- OUTSIDE RECORDS SUMMARY | 2017-01-20 21:59 | XMS REPORT | Referral Summary ---
Author Author [facility] Organization [facility] Address Unknown Phone Unavailable Care Team Providers Care Magazine Keeper Name Role Phone [facility] Primary Care Physician Unavailable Encounter VC TEJADA [id number] Date(s): 01/01/16 - 01/01/16 [facility] [address] [place], [place] [address] Discharge Diagnosis: Pseudoseizure Discharge Disposition: 01-Home or Self Care Attending Physician: Edu Hunter MD Admitting Physician: Edu Hunter MD Vital Signs Most recent to 1 oldest [Reference Range]: Temperature Oral 36.6 degC [35.8-37.3 degC] (01/01/16 5:22 PM) Peripheral Pulse 68 bpm Rate [60-100 bpm] (01/01/16 7:36 PM) Respiratory Rate 18 br/min [14-20 br/min] (01/01/16 7:36 PM) Blood Pressure 139/94 mmHg [90-140/60-90 mmHg] (01/01/16 7:36 PM) SpO2 98 % (01/01/16 7:36 PM) Problem List Condition Effective Dates Status [...] pain, # 300 mL, 0 Refill(s), Pharmacy: [facility] [id number], 10 mL Oral q6hr,PRN:as needed for pain Start Date: 12/24/14 Status: Ordered Advair Diskus 250 mcg-50 mcg inhalation powder See Instructions, INHALE 1 PUFF BY INHALATION ROUTE 2 TIMES EVERY DAY IN THE MORNING AND EVENING APPROXIMATELY 12 HOURS APART, # 1 unknown unit, eRx: [facility] [id number], INHALE 1 PUFF BY INHALATION ROUTE 2 TIMES EVERY DAY IN THE MORNING AND EV... Start Date: 02/25/15 Status: Ordered Carafate 1 g oral tablet 1 g 1 tabs, Oral, QID, Dissolve in water and drink, # 30 tabs, 0 Refill(s) Start Date: 12/25/15 Status: Ordered Carafate 1 g oral tablet 1 g 1 tabs, Oral, QID, Dissolve in water and drink, # 40 tabs, 0 Refill(s) Start Date: 08/31/15 Status: Ordered cetirizine 10 mg oral tablet 10 mg 1 tabs, Oral, Daily, # 30 tabs, 5 Refill(s), Pharmacy: [facility] [id number], 1 tabs Oral Daily Start Date: 09/01/15 Status: Ordered codeine-guaiFENesin 10 mg-300 mg/5 mL oral liquid 5 mL, Oral, q6hr, as needed for cough, # 120 mL, 0 Refill(s) Start Date: 12/21/15 Status: Ordered Flonase 50 mcg/inh nasal spray 2 sprays, Nasal, Daily, # 1 Each, 5 Refill(s), Pharmacy: [facility] [id number] Start Date: 12/12/15 Status: Ordered ibuprofen 800 mg oral tablet 800 mg 1 tabs, Oral, TID, Pain, # 15 tabs, 0 Refill(s) Start Date: 12/07/15 Status: Ordered loratadine 10 mg oral tablet 10 mg, Oral, Daily, # 30 tabs, 5 Refill(s), Pharmacy: [facility] [id number] , 10 mg Oral Daily Start Date: 01/14/15 Status: Ordered meloxicam 15 mg oral tablet 15 mg 1 tabs, Oral, Daily, # 30 tabs, 0 Refill(s) Start Date: 12/12/15 Status: Ordered ondansetron 4 mg oral tablet [...] # 1 Each, 1 Refill(s), Pharmacy : [facility] [id number] Start Date: 06/11/15 Status: Ordered Robitussin DM To Go 20 mg-200 mg/10 mL oral liquid 10 mL, Oral, q4hr, as needed for cough, # 100 mL, 0 Refill(s), Pharmacy: [facility] [id number] Start Date: 12/12/15 Status: Ordered traZODone Oral, 0 Refill(s) Start Date: 04/05/15 Status: Ordered Viibryd Oral, Daily, 0 Refill(s) Start Date: 04/05/15 Status: Ordered Vitamin D3 1,000 Intl_Units, Oral, Daily, 0 Refill(s) Start Date: 10/26/14 Status: Ordered Zofran ODT 4 mg oral tablet, disintegrating 4 mg 1 tabs, Oral, q6hr, Nausea or Vomiting | as needed for nausea/vomiting, # 10 tabs, 0 Refill(s) Start Date: 12/25/15 Stop Date: 01/03/16 Status: Ordered Results Chemistry Most recent to 1 oldest [Reference Range]: Sodium Venous 139 mEq/L [136-144 mEq/L] (01/01/16 5:46 PM) Potassium Venous 4.3 mEq/L 1 [3.6-5.1 mEq/L] (01/01/16 5:46 PM) Calcium Ionized 1.15 mmol/L Venous [1.19-1.41 *LOW* mmol/L] (01/01/16 5:46 PM) Total CO2 Venous 19 mEq/L [25-29 mEq/L] *LOW* (01/01/16 5:46 PM) HGB Venous NPT 12.2 gm/dL [12.0-16.0 gm/dL] (01/01/16 5:46 PM) HCT Venous 36.0 % [37.0-47.0 %] *LOW* (01/01/16 5:46 PM) Glucose Venous 98 mg/dL [70-100 mg/dL] (01/01/16 5:46 PM) BUN Venous [4-20] 13 (01/01/16 5:46 PM) Creatinine Venous 0.6 mg/dL [0.4-1.0 mg/dL] (01/01/16 5:46 PM) Venous CL [99-109 109 mEq/L mEq/L] (01/01/16 5:46 PM) Anion Gap, Darron 11 [3-20] (01/01/16 5:46 PM) Screen, Negative Urine NPT (01/01/16 6:53 PM) 1Result Comment: This test was performed on a whole blood specimen. The presence or absence of hemolysis cannot be assessed. Hemolysis can falsely elevate potassium levels. Normals are for venous specimens only. Toxicology Most recent to 1 oldest [Reference Range]: U Amphetamine Scrn Negative (01/01/16 6:23 PM) U Cocaine Scrn Negative (01/01/16 6:23 PM) U Cannab Scrn Negative (01/01/16 6:23 PM) U Opiate Scrn Negative (01/01/16 6:23 PM) U PCP Scrn Negative (01/01/16 6:23 PM) U Benzodiazepine Negative Scrn (01/01/16 6:23 PM) U Barbiturate Scrn Negative (01/01/16 6:23 PM) Methadone Lvl Negative (01/01/16 6:23 PM) Tricyclics Negative 1 (3/17/16 6:23 PM) 1Result Comment: Cut-off concentrations: Amphetamines: 1000 ng/mL [...] 1 oldest [Reference Range]: UA Color Yellow (01/01/16 6:23 PM) UA Appear Sl Cloudy (01/01/16 6:23 PM) UA pH [5.0-8.0] 6.0 (01/01/16 6:23 PM) UA Leuk Est Pos 3+ [Negative] *ABN* (01/01/16 6:23 PM) UA Nitrite Negative [Negative] (01/01/16 6:23 PM) UA Protein Negative [Negative] (01/01/16 6:23 PM) UA Glucose Negative [Negative] (01/01/16 6:23 PM) UA Ketones Negative [Negative] (01/01/16 6:23 PM) UA Urobilinogen Negative [<1.0] (01/01/16 6:23 PM) UA Bili [Negative] Negative (01/01/16 6:23 PM) UA Blood [Negative] Negative (01/01/16 6:23 PM) UA Spec Grav 1.025 [1.003-1.030] (01/01/16 6:23 PM) Type Catheter (01/01/16 6:23 PM) UA WBC [0-4] 20-50 *ABN* (01/01/16 6:23 PM) UA RBC [0-2] 2-5 (01/01/16 6:23 PM) Epithelial Cells 5-10 (01/01/16 6:23 PM) UA Bacteria Rare (01/01/16 6:23 PM) UA Mucous Present (01/01/16 6:23 PM) Immunizations Vaccine Date Refusal Reason pneumococcal 23-polyvalent vaccine 11/18/14 Procedures Procedure Date Related Diagnosis Body Site Esophagogastroduodenoscopy Balloon Dilat1 02/14/15 Examination Under Anesthesia2 02/14/15 Adenoidectomy Bilateral tubal ligation Bronchoscope Cardiac catheterization, combined right and left heart Tonsillectomy Tympanostomy [place] tooth 1auto-populated from documented surgical case 2auto-populated from documented surgical case Social History Social History Type Response Smoking Status Current some day smoker; Type: Cigarettes; Tobacco use per day: 1 Pack1, 2 1pt quit smoking 1 month ago 2quit 05/2015 Assessment and Plan No data available for this section"
--- OUTSIDE RECORDS SUMMARY | 2017-01-20 21:59 | XMS REPORT | Referral Summary ---
Author Author [facility] Organization [facility] Address Unknown Phone Unavailable Care Team Providers Care Sales Floor Manager Name Role Phone [facility] Primary Care Physician Unavailable Encounter VC TEJADA [id number] Date(s): 01/17/16 - 01/17/16 [facility] [address] [place] [address] Discharge Diagnosis: Hip strain Discharge Disposition: 01-Home or Self Care Attending Physician: Vance Lei MD Admitting Physician: Vance Lei MD Vital Signs Most recent to 1 oldest [Reference Range]: Temperature Oral 36.4 degC [35.8-37.3 degC] (01/17/16 9:39 PM) Peripheral Pulse 75 bpm Rate [60-100 bpm] (01/17/16 9:39 PM) Heart Rate Monitored 97 bpm [60-100 bpm] (01/17/16 11:26 PM) Respiratory Rate 20 br/min [14-20 br/min] (01/17/16 11:26 PM) Blood Pressure 136/84 mmHg [90-140/60-90 mmHg] (01/17/16 11:26 PM) SpO2 98 % (01/17/16 11:26 PM) Problem List Condition Effective Dates Status [...] pain, # 300 mL, 0 Refill(s), Pharmacy: [facility] [id number], 10 mL Oral q6hr,PRN:as needed for pain Start Date: 12/24/14 Status: Ordered Advair Diskus 250 mcg-50 mcg inhalation powder See Instructions, INHALE 1 PUFF BY INHALATION ROUTE 2 TIMES EVERY DAY IN THE MORNING AND EVENING APPROXIMATELY 12 HOURS APART, # 1 unknown unit, eRx: [facility] [id number], INHALE 1 PUFF BY INHALATION ROUTE 2 [...] Daily, # 30 tabs, 5 Refill(s), Pharmacy: [facility] [id number], 1 tabs Oral Daily Start Date: 09/01/15 Status: Ordered codeine-guaiFENesin 10 mg-300 mg/5 mL oral liquid 5 mL, Oral, q6hr, as needed for cough, # 120 mL, 0 Refill(s) Start Date: 12/21/15 Status: Ordered cyclobenzaprine 10 mg oral tablet 10 mg 1 tabs, Oral, TID, as needed for spasm, X 4 days, # 12 tabs, 0 Refill(s) Start Date: 01/17/16 Stop Date: 01/21/16 Status: Ordered cyclobenzaprine 10 mg oral tablet 10 mg 1 tabs, Oral, TID, as needed for spasm, X 3 days, # 9 tabs, 0 Refill(s) Start Date: 01/17/16 Stop Date: 01/20/16 Status: Ordered Flonase 50 mcg/inh nasal spray 2 sprays, Nasal, Daily, # 1 Each, 5 Refill(s), Pharmacy: [facility] [id number] Start Date: 12/12/15 Status: Ordered ibuprofen 800 mg oral tablet 800 mg 1 tabs, Oral, TID, Pain, # 15 tabs, 0 Refill(s) Start Date: 12/07/15 Status: Ordered loratadine 10 mg oral tablet 10 mg, Oral, Daily, # 30 tabs, 5 Refill(s), Pharmacy: [facility] [id number] , 10 mg Oral Daily Start Date: 01/14/15 Status: Ordered meloxicam 15 mg oral tablet 15 mg 1 tabs, Oral, Daily, # 30 tabs, 0 Refill(s) Start Date: 12/12/15 Status: Ordered Naprosyn 500 mg oral tablet 500 mg 1 tabs, Oral, BID, # 10 tabs, 0 Refill(s) Start Date: 01/17/16 Stop Date: 01/22/16 Status: Ordered ondansetron 4 mg oral tablet [...] # 1 Each, 1 Refill(s), Pharmacy : [facility] [id number] Start Date: 06/11/15 Status: Ordered Robitussin DM To Go 20 mg-200 mg/10 mL oral liquid 10 mL, Oral, q4hr, as needed for cough, # 100 mL, 0 Refill(s), Pharmacy: [facility] [id number] Start Date: 12/12/15 Status: Ordered Vitamin D3 1,000 Intl_Units, Oral, [...] combined right and left heart Tonsillectomy Tympanostomy [place] tooth 1auto-populated from documented surgical case 2auto-populated from documented surgical case 3auto-populated from documented surgical case 4auto-populated from documented surgical case Social History Social History Type Response Smoking Status Former smoker; Type: Cigarettes; Tobacco use per day: 1 Pack1 , 2 1pt quit smoking 1 month ago 2quit 05/2015 Assessment and Plan No data available for this section
--- OUTSIDE RECORDS SUMMARY | 2017-01-20 21:59 | XMS REPORT | Referral Summary ---
Author Author [facility] Organization [facility] Address Unknown Phone Unavailable Care Team Providers Care Vocal Artist Name Role Phone [facility] Primary Care Physician Unavailable Encounter Date(s): 12/12/15 - 12/12/15 [facility] [address] [place] [address] [facility] Discharge Diagnosis: Asthma Discharge Disposition: 01-Home or Self Care Attending Physician: Vandana French MD Vital Signs No data available for this section Problem List Condition Effective Dates Status Health [...] pain, # 300 mL, 0 Refill(s), Pharmacy: [facility] [id number], 10 mL Oral q6hr,PRN:as needed for pain Start Date: 12/24/14 Status: Ordered Advair Diskus 250 mcg-50 mcg inhalation powder See Instructions, INHALE 1 PUFF BY INHALATION ROUTE 2 TIMES EVERY DAY IN THE MORNING AND EVENING APPROXIMATELY 12 HOURS APART, # 1 unknown unit, eRx: [facility] [id number], INHALE 1 PUFF BY INHALATION ROUTE 2 TIMES EVERY DAY IN THE MORNING AND EV... Start Date: 02/25/15 Status: Ordered Carafate 1 g oral tablet 1 g 1 tabs, Oral, QID, Dissolve in water and drink, # 40 tabs, 0 Refill(s) Start Date: 08/31/15 Status: Ordered cetirizine 10 mg oral tablet 10 mg 1 tabs, Oral, Daily, # 30 tabs, 5 Refill(s), Pharmacy: [facility] [id number], 1 tabs Oral Daily Start Date: 09/01/15 Status: Ordered Flonase 50 mcg/inh nasal spray 2 sprays, Nasal, Daily, # 1 Each, 5 Refill(s), Pharmacy: [facility] [id number] Start Date: 12/12/15 Status: Ordered ibuprofen 800 mg oral tablet 800 mg 1 tabs, Oral, TID, Pain, # 15 tabs, 0 Refill(s) Start Date: 12/07/15 Status: Ordered Keflex 500 mg oral capsule 500 mg 1 caps, Oral, q8hr, X 7 days, # 21 caps, 0 Refill(s) Start Date: 12/07/15 Stop Date: 12/14/15 Status: Ordered loratadine 10 mg oral tablet 10 mg, Oral, Daily, # 30 tabs, 5 Refill(s), Pharmacy: [facility] [id number] , 10 mg Oral Daily Start Date: [...] # 1 Each, 1 Refill(s), Pharmacy : [facility] [id number] Start Date: 06/11/15 Status: Ordered Robitussin DM To Go 20 mg-200 mg/10 mL oral liquid 10 mL, Oral, q4hr, as needed for cough, # 100 mL, 0 Refill(s), Pharmacy: [facility] [id number] Start Date: 12/12/15 Status: Ordered traZODone Oral, [...] combined right and left heart Tonsillectomy Tympanostomy [place] tooth 1auto-populated from documented surgical case 2auto-populated from documented surgical case Social History Social History Type Response Smoking Status Former smoker; Type: Cigarettes Assessment and Plan No data available for this section
--- OUTSIDE RECORDS SUMMARY | 2017-01-20 21:59 | XMS REPORT | Referral Summary ---
Author Author [facility] Organization [facility] Address Unknown Phone Unavailable Care Team Providers Care Nonprofit Director Name Role Phone Imelda Martin Primary Care Physician [phone] Encounter VC Date(s): 09/26/16 - 09/26/16 [facility] [address] [place] [address] [phone] Discharge Diagnosis: Chronic GERD Discharge Disposition: 01-Home or Self Care Attending Physician: Maxx Torres JR, MD Admitting Physician: Maxx Torres JR, MD Vital Signs Most recent to 1 oldest [Reference Range]: Temperature Oral 37 degC [35.8-37.3 degC] (09/26/16 11:49 AM) Peripheral Pulse 78 bpm Rate [60-100 bpm] (09/26/16 11:49 AM) Heart Rate Monitored 85 bpm [60-100 bpm] (09/26/16 3:35 PM) Respiratory Rate 21 br/min [14-20 br/min] *HI* (09/26/16 3:35 PM) Blood Pressure 108/75 mmHg [90-140/60-90 mmHg] (09/26/16 3:35 PM) Mean Arterial 88 mmHg Pressure, Cuff (09/26/16 3:35 PM) SpO2 97 % (09/26/16 3:35 PM) Problem List Condition Effective Dates Status [...] Reactions, Alerts Substance Reaction Severity Status Cipro Itch Medium Active omeprazole Turns red Medium Active Rash PriLOSEC OTC1 Rash Medium Active 1pt states she gets a rash from the medication. Medications acetaminophen 160 mg/5 mL oral liquid Oral, q4hr, as needed for pain/fever, per package instructions, 0 Refill(s) Start Date: 06/04/16 Status: Ordered Advair Diskus 500 mcg-50 mcg inhalation powder 1 puffs, Inhalation, BID, 0 Refill(s) Start Date: 06/04/16 Status: Ordered Carafate 1 g/10 mL oral suspension 10 mL, Oral, QIDACHS, # 280 mL, 0 Refill(s), Pharmacy: [facility], 10 mL Oral QIDACHS Start Date: 02/15/16 Status: Ordered Claritin 10 mg, Oral, Daily, 0 Refill(s) Start Date: 01/23/16 Status: Ordered Keppra 500 mg oral tablet 500 mg 1 tabs, Oral, BID, # 60 tabs, 0 Refill(s), Pharmacy: [facility] [id number], 1 tabs Oral BID Start Date: 07/12/16 Status: Ordered Keppra 500 mg oral tablet 500 mg 1 tabs, Oral, BID, # 60 tabs, 0 Refill(s) Start Date: 04/21/16 Stop Date: 05/21/16 Status: Ordered paliperidone 3 mg oral tablet, extended release 3 mg 1 tabs, Oral, qAM, 0 Refill(s) Start Date: 06/04/16 Status: Ordered ProAir HFA 90 mcg/inh inhalation aerosol 2 puffs, Inhalation, QID, as needed for wheezing, 0 Refill(s) Start Date: 06/04/16 Status: Ordered promethazine 25 mg oral tablet 25 mg 1 tabs, Oral, q6hr, as needed for nausea/vomiting, # 10 tabs, 0 Refill(s) Start Date: 05/08/16 Status: Ordered Singulair 10 mg, Oral, qPM, 0 Refill(s) Start Date: 01/23/16 Status: Ordered Vitamin D3 1,000 Intl_Units, Oral, Daily, 0 Refill(s) Start Date: 10/26/14 Status: Ordered Results Hematology Most recent to 1 oldest [Reference Range]: WBC [4.8-10.8 8.2 10*3/uL 10*3/uL] (09/26/16 1:30 PM) RBC [4.00-5.20] 4.61 (09/26/16 1:30 PM) Hgb [12.0-16.0 11.0 gm/dL gm/dL] *LOW* (09/26/16 1:30 PM) Hct [37.0-47.0 %] 36.7 % *LOW* (09/26/16 1:30 PM) MCV [82.0-99.0 fL] 79.6 fL *LOW* (09/26/16 1:30 PM) MCH [27.0-32.0 pg] 23.9 pg *LOW* (09/26/16 1:30 PM) MCHC [32.0-36.0 30.0 gm/dL gm/dL] *LOW* (09/26/16 1:30 PM) RDW [11.5-14.5 %] 18.6 % *HI* (09/26/16 1:30 PM) Platelet [150-400 225 10*3/uL 10*3/uL] (09/26/16 1:30 PM) MPV [9.4-12.4 fL] 9.5 fL (09/26/16 1:30 PM) Immature 0.2 % Granulocytes (09/26/16 1:30 PM) [0.0-1.0 %] Neutrophils [51-75 70 % %] (09/26/16 1:30 PM) Lymphocytes [20-46 23 % %] (09/26/16 1:30 PM) Monocytes [4-11 %] 6 % (09/26/16 1:30 PM) Eosinophils [0-4 %] 0 % (09/26/16 1:30 PM) Basophils [0-2 %] 0 % (09/26/16 1:30 PM) Neutro Absolute 5.80 10*3 [1.90-7.00 10*3] (09/26/16 1:30 PM) Lymph Absolute 1.89 10*3 [0.80-3.30 10*3] (09/26/16 1:30 PM) [place] Absolute 0.50 10*3 [0.30-1.00 10*3] (09/26/16 1:30 PM) Eos Absolute 0.02 10*3 [0.00-0.50 10*3] (09/26/16 1:30 PM) Baso Absolute 0.02 10*3 [0.00-0.20 10*3] (09/26/16 1:30 PM) Nucleated RBC 0.0 /100 WBC Automated [0 /100 (09/26/16 1:30 PM) WBC] Chemistry Most recent to 1 oldest [Reference Range]: Sodium Lvl [136-144 136 mEq/L mEq/L] (09/26/16 1:30 PM) Potassium Lvl 3.7 mEq/L [3.6-5.1 mEq/L] (09/26/16 1:30 PM) Chloride [99-109 104 mEq/L mEq/L] (09/26/16 1:30 PM) CO2 [22-32 mEq/L] 23 mEq/L (09/26/16 1:30 PM) AGAP [3-20] 9 (09/26/16 1:30 PM) BUN [4-20 mg/dL] 6 mg/dL (09/26/16 1:30 PM) Glucose Lvl [70-100 83 mg/dL mg/dL] (09/26/16 1:30 PM) Creatinine Lvl 0.66 mg/dL [0.44-1.03 mg/dL] (09/26/16 1:30 PM) eGFR [>60] >60 1 (09/26/16 1:30 PM) Calcium Lvl 9.0 mg/dL [8.6-10.0 mg/dL] (09/26/16 1:30 PM) Albumin Lvl [3.5-4.8 3.6 gm/dL gm/dL] (09/26/16 1:30 PM) Total Protein 7.3 gm/dL [6.1-7.9 gm/dL] (09/26/16 1:30 PM) Globulin [1.9-4.3 3.7 gm/dL gm/dL] (09/26/16 1:30 PM) ALT [14-54 U/L] 14 U/L (09/26/16 1:30 PM) AST [15-41 U/L] 21 U/L (09/26/16 1:30 PM) Alk Phos [26-104 85 U/L U/L] (09/26/16 1:30 PM) Bili Total [0.2-1.2 0.7 mg/dL 2 mg/dL] (09/26/16 1:30 PM) Troponin [<0.06 <0.05 ng/mL ng/mL] (09/26/16 1:30 PM) Lipase Lvl [8-48 19 U/L U/L] (09/26/16 1:30 PM) 1Result Comment: Multiply eGFR results by 1.21 for race. 2Result Comment: Naproxen, specifically the metabolite O-desmethylnaproxen, may cause spurious elevation in Total Bilirubin levels. Immunizations Given and Recorded Vaccine Date Status Refusal Reason pneumococcal 23-polyvalent vaccine 11/18/14 Given Procedures Procedure Date Related Diagnosis Body Site Esophagogastroduodenoscopy - SN1 06/04/16 Esophagogastroduodenoscopy Foreign Body 01/06/16 Removal2 Procedure with Anesthesia3 01/06/16 Esophagogastroduodenoscopy Balloon Dilat4 02/14/15 Examination Under Anesthesia5 02/14/15 Adenoidectomy Bilateral tubal ligation Bronchoscope Cardiac catheterization, combined right and left heart Tonsillectomy Tympanostomy [place] tooth 1auto-populated from documented surgical case 2auto-populated from documented surgical case 3auto-populated from documented surgical case 4auto-populated from documented surgical case 5auto-populated from documented surgical case Social History Social History Type Response Smoking Status Never smoker Assessment and Plan No data available for this section
--- OUTSIDE RECORDS SUMMARY | 2017-01-20 21:59 | XMS REPORT | Referral Summary ---
Author Author [facility] Organization [facility] Address Unknown Phone Unavailable Care Team Providers Care Security System Administrator Name Role Phone [facility] Primary Care Physician Unavailable Encounter VC TEJADA [id number] Date(s): 01/10/16 - 01/10/16 [facility] [address] [place], [place] [address] Discharge Diagnosis: Anxiety Discharge Diagnosis: Acute chest pain Discharge Disposition: 01-Home or Self Care Attending Physician: Milton Magaña MD Admitting Physician: Milton Magaña MD Vital Signs Most recent to 1 oldest [Reference Range]: Temperature Oral 36.6 degC [35.8-37.3 degC] (01/10/16 2:18 PM) Peripheral Pulse 81 bpm Rate [60-100 bpm] (01/10/16 4:54 PM) Respiratory Rate 16 br/min [14-20 br/min] (01/10/16 4:54 PM) Blood Pressure 107/67 mmHg [90-140/60-90 mmHg] (01/10/16 4:54 PM) SpO2 98 % (01/10/16 4:54 PM) Problem List Condition Effective Dates Status [...] pain, # 300 mL, 0 Refill(s), Pharmacy: [facility] [id number], 10 mL Oral q6hr,PRN:as needed for pain Start Date: 12/24/14 Status: Ordered Advair Diskus 250 mcg-50 mcg inhalation powder See Instructions, INHALE 1 PUFF BY INHALATION ROUTE 2 TIMES EVERY DAY IN THE MORNING AND EVENING APPROXIMATELY 12 HOURS APART, # 1 unknown unit, eRx: [facility] [id number], INHALE 1 PUFF BY INHALATION ROUTE 2 [...] Daily, # 30 tabs, 5 Refill(s), Pharmacy: [facility] [address], 1 tabs Oral Daily Start Date: 09/01/15 Status: Ordered codeine-guaiFENesin 10 mg-300 mg/5 mL oral liquid 5 mL, Oral, q6hr, as needed for cough, # 120 mL, 0 Refill(s) Start Date: 12/21/15 Status: Ordered Flonase 50 mcg/inh nasal spray 2 sprays, Nasal, Daily, # 1 Each, 5 Refill(s), Pharmacy: [facility] [id number] Start Date: 12/12/15 Status: Ordered ibuprofen 800 mg oral tablet 800 mg 1 tabs, Oral, TID, Pain, # 15 tabs, 0 Refill(s) Start Date: 12/07/15 Status: Ordered loratadine 10 mg oral tablet 10 mg, Oral, Daily, # 30 tabs, 5 Refill(s), Pharmacy: [facility] [id number] , 10 mg Oral Daily Start Date: 01/14/15 Status: Ordered meloxicam 15 mg oral tablet 15 mg 1 tabs, Oral, Daily, # 30 tabs, 0 Refill(s) Start Date: 12/12/15 Status: Ordered [place] 7.5 mg-325 mg oral tablet See Instructions, Take 1-2 tablets by mouth every 4-6 hours as needed for pain. not to exceed 4000 mg acetaminophen per day, # 20 tabs, 0 Refill(s) Start Date: 01/09/16 Stop Date: 01/16/16 Status: Ordered ondansetron 4 mg oral tablet [...] # 1 Each, 1 Refill(s), Pharmacy : [facility] [id number] Start Date: 06/11/15 Status: Ordered Robitussin DM To Go 20 mg-200 mg/10 mL oral liquid 10 mL, Oral, q4hr, as needed for cough, # 100 mL, 0 Refill(s), Pharmacy: [facility] [id number] Start Date: 12/12/15 Status: Ordered Vitamin D3 [...] combined right and left heart Tonsillectomy Tympanostomy [place] tooth 1auto-populated from documented surgical case 2auto-populated [...]
--- OUTSIDE RECORDS SUMMARY | 2017-01-20 21:59 | XMS REPORT | Referral Summary ---
Author Author [facility] Organization [facility] Address Unknown Phone Unavailable Care Team Providers Care Supervisor Electric Motor Testing Name Role Phone [facility] Primary Care Physician Unavailable Encounter TERRELL [id number] Date(s): 02/28/16 - 02/28/16 [facility] [address] [place] [address] Discharge Diagnosis: Chest wall pain Discharge Disposition: 01-Home or Self Care Attending Physician: Vance Lei MD Admitting Physician: Vance Lei MD Vital Signs Most recent to 1 oldest [Reference Range]: Temperature Oral 36.3 degC [35.8-37.3 degC] (02/28/16 9:19 AM) Peripheral Pulse 86 bpm Rate [60-100 bpm] (02/28/16 10:39 AM) Respiratory Rate 18 br/min [14-20 br/min] (02/28/16 10:39 AM) Blood Pressure 126/87 mmHg [90-140/60-90 mmHg] (02/28/16 10:39 AM) SpO2 97 % (02/28/16 10:39 AM) Problem List Condition Effective Dates Status [...] HOURS APART, # 1 unknown unit, eRx: [facility] [id number], INHALE 1 PUFF BY INHALATION ROUTE 2 TIMES EVERY DAY IN THE MORNING AND EV... Start Date: 02/25/15 Status: Ordered Carafate 1 g/10 mL oral suspension 10 mL, Oral, QIDACHS, # 280 mL, 0 Refill(s), Pharmacy: [facility], 10 mL Oral QIDACHS Start Date: 02/15/16 Status: Ordered cetirizine 10 mg oral tablet 10 mg 1 tabs, Oral, Daily, # 30 tabs, 5 Refill(s), Pharmacy: [facility] [id number], 1 tabs Oral Daily Start Date: 09/01/15 Status: Ordered Claritin mg, 0 Refill(s) Start Date: 01/23/16 Status: Ordered cyclobenzaprine 10 mg oral tablet 10 mg 1 tabs, Oral, TID, as needed for spasm, # 12 tabs, 0 Refill(s) Start Date: 01/30/16 Stop Date: 01/29/17 Status: Ordered loratadine 0 Refill(s) Start Date: 01/23/16 Status: Ordered meloxicam 15 mg oral tablet 15 mg 1 tabs, Oral, Daily, # 30 tabs, 0 Refill(s) Start Date: 12/12/15 Status: Ordered olopatadine 0.1% ophthalmic solution See Instructions, 1 drop to affected eye daily prn, # 5 mL, 5 Refill(s), Pharmacy: [facility] Start Date: 02/02/16 Status: Ordered Pepcid 20 mg oral tablet 20 mg 1 tabs, Oral, BID, # 60 tabs, 0 Refill(s) Start Date: 09/14/15 Status: Ordered ProAir HFA 90 mcg/inh inhalation aerosol See Instructions, 2-4 puffs every 4-6 hrs prn., # 1 Each, 1 Refill(s), Pharmacy : [facility] [id number] Start Date: 06/11/15 Status: Ordered Singulair qPM, 0 Refill(s) Start Date: 01/23/16 Status: Ordered Vitamin D3 1,000 Intl_Units, Oral, Daily, 0 Refill(s) Start Date: 10/26/14 Status: Ordered Results Hematology Most recent to 1 oldest [Reference Range]: WBC [4.8-10.8 5.1 10*3/uL 10*3/uL] (02/28/16 9:40 AM) RBC [4.00-5.20] 4.15 (02/28/16 9:40 AM) Hgb [12.0-16.0 10.4 gm/dL gm/dL] *LOW* (02/28/16 9:40 AM) Hct [37.0-47.0 %] 34.0 % *LOW* (02/28/16 9:40 AM) MCV [82.0-99.0 fL] 81.9 fL *LOW* (02/28/16 9:40 AM) MCH [27.0-32.0 pg] 25.1 pg *LOW* (02/28/16 9:40 AM) MCHC [32.0-36.0 30.6 gm/dL gm/dL] *LOW* (02/28/16 9:40 AM) RDW [11.5-14.5 %] 18.6 % *HI* (02/28/16 9:40 AM) Platelet [150-400 175 10*3/uL 10*3/uL] (02/28/16 9:40 AM) MPV [9.4-12.4 fL] 9.2 fL *LOW* (02/28/16 9:40 AM) Immature 0.2 % Granulocytes (02/28/16 9:40 AM) [0.0-1.0 %] Neutrophils [51-75 54 % %] (02/28/16 9:40 AM) Lymphocytes [20-46 30 % %] (02/28/16 9:40 AM) Monocytes [4-11 %] 14 % *HI* (02/28/16 9:40 AM) Eosinophils [0-4 %] 1 % (02/28/16 9:40 AM) Basophils [0-2 %] 0 % (02/28/16 9:40 AM) Neutro Absolute 2.75 10*3 [1.90-7.00 10*3] (02/28/16 9:40 AM) Lymph Absolute 1.52 10*3 [0.80-3.30 10*3] (02/28/16 9:40 AM) [place] Absolute 0.69 10*3 [0.30-1.00 10*3] (02/28/16 9:40 AM) Eos Absolute 0.07 10*3 [0.00-0.50 10*3] (02/28/16 9:40 AM) Baso Absolute 0.02 10*3 [0.00-0.20 10*3] (02/28/16 9:40 AM) Nucleated RBC 0.0 /100 WBC Automated [0 /100 (02/28/16 9:40 AM) WBC] Chemistry Most recent to 1 oldest [Reference Range]: Sodium Lvl [136-144 138 mEq/L mEq/L] (02/28/16 9:40 AM) Potassium Lvl 3.8 mEq/L [3.6-5.1 mEq/L] (02/28/16 9:40 AM) Chloride [99-109 106 mEq/L mEq/L] (02/28/16 9:40 AM) CO2 [22-32 mEq/L] 26 mEq/L (02/28/16 9:40 AM) AGAP [3-20] 6 (02/28/16 9:40 AM) BUN [4-20 mg/dL] 3 mg/dL *LOW* (02/28/16 9:40 AM) Glucose Lvl [70-100 85 mg/dL mg/dL] (02/28/16 9:40 AM) Creatinine Lvl 0.62 mg/dL [0.44-1.03 mg/dL] (02/28/16 9:40 AM) eGFR [>60] >60 1 (02/28/16 9:40 AM) Calcium Lvl 8.7 mg/dL [8.6-10.0 mg/dL] (02/28/16 9:40 AM) Albumin Lvl [3.5-4.8 3.1 gm/dL gm/dL] *LOW* (02/28/16 9:40 AM) Total Protein 6.8 gm/dL [6.1-7.9 gm/dL] (02/28/16 9:40 AM) Globulin [1.9-4.3 3.7 gm/dL gm/dL] (02/28/16 9:40 AM) ALT [14-54 U/L] 15 U/L (02/28/16 9:40 AM) AST [15-41 U/L] 17 U/L (02/28/16 9:40 AM) Alk Phos [26-104 79 U/L U/L] (02/28/16 9:40 AM) Bili Total [0.2-1.2 0.4 mg/dL 2 mg/dL] (02/28/16 9:40 AM) Troponin [<0.06 <0.05 ng/mL ng/mL] (02/28/16 9:40 AM) 1Result Comment: Multiply eGFR results by 1.21 for race. 2Result Comment: Naproxen, specifically the metabolite O-desmethylnaproxen, may cause spurious elevation in Total Bilirubin levels. Immunizations Vaccine Date Refusal Reason pneumococcal 23-polyvalent vaccine 11/18/14 Procedures Procedure Date Related Diagnosis Body Site Esophagogastroduodenoscopy Foreign Body 01/06/16 Removal1 Procedure with Anesthesia2 01/06/16 Esophagogastroduodenoscopy Balloon Dilat3 02/14/15 Examination Under Anesthesia4 02/14/15 Adenoidectomy Bilateral tubal ligation Bronchoscope Cardiac catheterization, combined right and left heart Tonsillectomy Tympanostomy [place] tooth 1auto-populated from documented surgical case 2auto-populated [...]
--- OUTSIDE RECORDS SUMMARY | 2017-01-20 22:00 | XMS REPORT ---
Author Author GENERATED, SYSTEM Organization Unknown Address Unknown Phone Unavailable Care Team Providers Care Marketing Administrative Assistant Name Role Phone UNASSIGNED DOCTOR , DOCTOR PP [phone] Reason For Visit Chief Complaint ABDM PAIN, VOMITING Social History Functional Status Vital Signs Results Chemistry from 10/25/2016 9:25 PMSODIUM 142 MMOL/L (136-145 MMOL/L) POTASSIUM 3.6 MMOL/L (3.5-5.1 MMOL/L) CHLORIDE 105 MMOL/L (98-107 MMOL/L) TCO2 26.6 MMOL/L (21.0-32.0 MMOL/L) *ANION GAP 10.4 MMOL/L (8.0-16.0 MMOL/L) BUN 10 MG/DL (7-18 MG/DL) CREATININE 0.75 MG/DL (0.55-1.02 MG/DL) *BUN/CREATININE RATIO 13.3 (9.1-17.0 ) GLUCOSE 94 MG/DL (65-99 MG/DL) *GFR EST NON AFR BELIZEAN >90 ML/MIN *GFR EST AFR AMER >90 ML/MIN CALCIUM 9.2 MG/DL (8.5-10.1 MG/DL) BILIRUBIN TOTAL 0.30 MG/DL (0.20-1.00 MG/DL) TOTAL PROTEIN 7.6 GM/DL (6.4-8.2 GM/DL) ALBUMIN 3.4 GM/DL (3.4-5.0 GM/DL) *GLOBULIN 4.2 GM/DL H (2.3-3.5 GM/DL) *A/G RATIO 0.8 MG/DL L (1.5-2.2 MG/DL) ALK PHOS 89 U/L (46-116 U/L) ALT (SGPT) 17 U/L (16-63 U/L) AST (SGOT) 8 U/L L (15-37 U/L) Hematology from 10/25/2016 9:25 PMWBC 7.8 X10e3/UL (3.6-11.2 X10e3/UL) RBC 4.41 X10e6/UL (3.63-4.92 X10e6/UL) HEMOGLOBIN 10.3 G/DL L (11.0-14.3 G/DL) HEMATOCRIT 33.4 % (31.2-41.9 %) *MCV 75.7 FL L (79.0-98.0 FL) *MCH 23.4 PG L (27.0-33.0 PG) *MCHC 30.9 G/DL L (32.0-36.0 G/DL) *RDW 19.5 % H (12.3-17.0 %) *RDWSD 52.1 H (37.1-47.8 ) PLATELET 239 X10e3/UL (159-386 X10e3/UL) *MPV 8.2 FL (7.4-10.4 FL) AUTOMATED DIFF PERFORMED SEGS 69.8 % *LYMPHOCYTES 21.3 % *MONOCYTES 5.5 % *EOSINOPHILS 2.9 % *BASOPHILS 0.5 % *ABSOLUTE NEUTROPHILS 5.40 X10e3/UL (1.80-7.80 X10e3/UL) *ABSOLUTE LYMPHOCYTES 1.70 X10e3/UL (1.00-3.00 X10e3/UL) *ABSOLUTE MONOCYTES 0.40 X10e3/UL (0.30-1.00 X10e3/UL) *ABSOLUTE EOSINOPHILS 0.20 X10e3/UL (0.00-0.50 X10e3/UL) *ABSOLUTE BASOPHILS 0.00 X10e3/UL (0.00-0.20 X10e3/UL) *HYPOCHROMASIA 2+ MICROCYTIC 1+ SPHEROCYTES 1+ Urinalysis from 10/25/2016 8:55 PM*URINE COLOR YELLOW (STRAW/YELL/DK YELL ) *URINE APPEARANCE SL CLOUDY A (CLEAR ) URINE PH 6.5 (5.0-8.0 ) URINE SPECIFIC GRAVITY 1.025 (<=1.005->=1.030 ) *URINE GLUCOSE NEGATIVE MG/DL (NEGATIVE MG/DL) *URINE BILIRUBIN NEGATIVE (NEGATIVE ) *URINE KETONES NEGATIVE MG/DL (NEGATIVE MG/DL) *URINE BLOOD NEGATIVE (NEGATIVE ) *URINE PROTEIN NEGATIVE MG/DL (NEGATIVE MG/DL) *URINE UROBILINOGEN 1.0 EU/DL (0.2-1.0 EU/DL) *URINE NITRITES NEGATIVE (NEGATIVE ) *URINE LEUKOCYTES SMALL A (NEGATIVE ) *MICROSCOPIC EXAM PERFORMED PERFORMED *WBC URINE 1-5 /HPF (0-5 /HPF) *SQUAMOUS EP. CELLS FEW /LPF (NEG-FEW /LPF) *MUCOUS THREADS MODERATE /LPF A (NEGATIVE /LPF) *BACTERIA FEW /HPF A (NEGATIVE /HPF) Coagulation from 10/25/2016 9:25 PM*PROTHROMBIN TIME 10.5 SECONDS (9.4-11.5 SECONDS) *INR 1.0 (0.9-1.1 ) Microbiology from 10/25/2016 8:55 PM* CULTURE URINE (Preliminary Result) Specimen Number: [id number] Sample Collection Date/Time: 10/25/2016 8:55 PM Specimen Source: Urine CULTURE URINE: No growth CT Scan from 10/25/2016 10:05 PMCT ABD/PELVIS W/CONTRAST History: abdominal pain nausea and vomiting. Technique: Post contrast images were performed after the administration of 95 milliliters of Isovue intravenous contrast. Priors: 02/16/2016 Findings: Abdomen Lung bases: Clear Liver: Normal density. No definable mass. Spleen: Normal. Pancreas: No discrete mass or inflammatory process. Gallbladder and biliary tract: No radiodense calculus or dilation. Adrenal glands: Normal. Kidneys: Normal enhancement. No masses. No radiodense stones or hydronephrosis. Urinary Bladder: Normal. Aorta: Normal in caliber. No periaortic lymphadenopathy. Bowel and Mesentery: There is unchanged large hiatal hernia with the majority of the stomach lying in the lower mediastinum. There is also a small segment of the mid transverse colon within the hernia sac. This is nonobstructive. No findings of appendicitis. Ascites: None. Pelvis Lymphadenopathy: None. Reproductive: There multiple right ovarian cysts largest measures 3.5 cm in diameter with small amount hyperdense material dependently suggesting hemorrhage within cyst Osseous Structures: No suspicious findings. Impression: 3.5 cm hemorrhagic right ovarian cyst with several additional smaller cysts. These are likely physiologic. Unchanged large hiatal hernia which appears uncomplicated. Electronically signed by: Pranay Shin MD Dictated: 10/26/2016 09:14 Problems Encounter Diagnosis No relevant problems exist. Encounters Encounter Diagnosis No relevant problems exist. Plan of Care Procedures No relevant procedures performed. Immunizations No immunizations administered or ordered. Hospital Course Hospital Discharge Instructions Allergies, Adverse Reactions, Alerts * Latex Allergy has not been assessed. * IV Contrast Allergy has not been assessed. Medication Medication reconciliation has not been performed.
--- OUTSIDE RECORDS SUMMARY | 2017-01-20 22:00 | XMS REPORT | Referral Summary ---
Author Author [facility] ([facility]3] Organization [facility]3] Address Unknown Phone Unavailable Care Team Providers Care Registered Nurse Ambulatory Name Role Phone Imelda Martin Primary Care Physician [phone] Encounter VC Date(s): 11/08/16 - 11/08/16 [facility]3] [address] [place] [address] [phone] Discharge Diagnosis: Right knee pain Discharge Disposition: 01-Home or Self Care Attending Physician: Vance Lei MD Admitting Physician: Vance Lei MD Vital Signs Most recent to 1 oldest [Reference Range]: Temperature Oral 36.6 degC [35.8-37.3 degC] (11/08/16 9:57 PM) Peripheral Pulse 81 bpm Rate [60-100 bpm] (11/08/16 11:35 PM) Respiratory Rate 18 br/min [14-20 br/min] (11/08/16 11:35 PM) Blood Pressure 113/78 mmHg [90-140/60-90 mmHg] (11/08/16 11:35 PM) SpO2 95 % (11/08/16 11:35 PM) Problem List Condition Effective Dates Status [...] 0 Refill(s) Start Date: 06/04/16 Status: Ordered acetaminophen 500 mg oral tablet 500 mg 1 tabs, Oral, q4hr, as needed for pain, # 24 tabs, 0 Refill(s) Start Date: 10/03/16 Stop Date: 10/03/17 Status: Ordered Advair Diskus 500 mcg-50 mcg inhalation powder 1 puffs, Inhalation, BID, 0 Refill(s) Start Date: 06/04/16 Status: Ordered Bentyl 20 mg oral tablet 20 mg 1 tabs, Oral, QID, # 8 tabs, 0 Refill(s), Indication: caron lugo md Start Date: 10/07/16 Stop Date: 10/09/16 Status: Ordered Carafate 1 g/10 mL oral suspension 10 mL, Oral, QIDACHS, # 280 mL, 0 Refill(s), Pharmacy: [facility], 10 mL Oral QIDACHS Start Date: 02/15/16 Status: Ordered cephalexin 500 mg oral tablet 500 mg 1 tabs, Oral, TID, X 7 days, # 21 tabs, 0 Refill(s) Start Date: 11/02/16 Stop Date: 11/09/16 Status: Ordered Claritin 10 mg, Oral, Daily, 0 Refill(s) Start Date: 01/23/16 Status: Ordered Crutches (DME) DME Item CRUTCHES, See Instructions, # 1 Each, 0 Refill(s), Supply Start Date: 11/08/16 Status: Ordered ibuprofen 600 mg oral tablet 600 mg 1 tabs, Oral, q6hr, # 40 tabs, 0 Refill(s) Start Date: 10/01/16 Status: Ordered Keppra 500 mg oral tablet 500 mg 1 tabs, Oral, BID, # 60 tabs, 0 Refill(s), Pharmacy: [id number], 1 tabs Oral BID Start Date: 07/12/16 Status: Ordered Keppra 500 mg oral tablet 500 mg 1 tabs, Oral, BID, # 60 tabs, 0 Refill(s) Start Date: 04/21/16 Stop Date: 05/21/16 Status: Ordered Levsin SL 0.125 mg sublingual tablet 0.125 mg 1 tabs, SubLingual, q4hr, # 12 tabs, 0 Refill(s) Start Date: 10/18/16 Status: Ordered Levsin SL 0.125 mg sublingual tablet 0.125 mg 1 tabs, SubLingual, q4hr, Abdominal Cramping, # 18 tabs, 0 Refill(s), Indication: caron lugo md Start Date: 10/22/16 Stop Date: 10/25/16 Status: Ordered paliperidone 3 mg oral tablet, extended release 3 mg 1 tabs, Oral, qAM, 0 Refill(s) Start Date: 06/04/16 Status: Ordered permethrin 5% topical cream 1 ann marie, Topical, Once, to skin head to feet, remove by washing after 8 to 14 hours, # 60 g, 1 Refill(s) Start Date: 11/02/16 Status: Ordered ProAir HFA 90 mcg/inh inhalation [...] No data available for this section Immunizations Given and Recorded Vaccine Date Status Refusal Reason pneumococcal 23-polyvalent vaccine 11/18/14 Given Procedures Procedure Date Related Diagnosis Body Site Esophagogastroduodenoscopy - SN1 06/04/16 Esophagogastroduodenoscopy Foreign Body 01/06/16 Removal2 Procedure with Anesthesia3 01/06/16 Esophagogastroduodenoscopy Balloon Dilat4 02/14/15 Examination Under Anesthesia5 02/14/15 Adenoidectomy Bilateral tubal ligation Bronchoscope Cardiac catheterization, combined right and left heart Tonsillectomy Tympanostomy [place] tooth 1auto-populated from documented surgical case 2auto-populated from documented surgical case 3auto-populated from documented surgical case 4auto-populated from documented surgical case 5auto-populated from documented surgical case Social History Social History Type Response Smoking Status Never smoker Assessment and Plan No data available for this section
--- OUTSIDE RECORDS SUMMARY | 2017-01-20 22:00 | XMS REPORT | Referral Summary ---
Author Author [facility] Organization [facility] Address Unknown Phone Unavailable Care Team Providers Care Collective Bargaining Specialist Name Role Phone [facility] Primary Care Physician Unavailable Encounter VC TEJADA [id number] Date(s): 01/25/16 - 01/25/16 [facility] [address] [place] [address] Discharge Diagnosis: Contusion Discharge Disposition: 01-Home or Self Care Attending Physician: Vance Lei MD Admitting Physician: Vance Lei MD Vital Signs Most recent to 1 oldest [Reference Range]: Temperature Oral 36.6 degC [35.8-37.3 degC] (01/25/16 6:16 PM) Peripheral Pulse 82 bpm Rate [60-100 bpm] (01/25/16 8:28 PM) Respiratory Rate 18 br/min [14-20 br/min] (01/25/16 8:28 PM) Blood Pressure 105/75 mmHg [90-140/60-90 mmHg] (01/25/16 8:28 PM) SpO2 94 % (01/25/16 8:28 PM) Problem List Condition Effective Dates Status [...] Date: 01/25/16 Stop Date: 01/24/17 Status: Ordered acetaminophen 500 mg/5 mL oral liquid 10 mL, Oral, q6hr, as needed for pain, # 300 mL, 0 Refill(s), Pharmacy: [id number], 10 mL Oral q6hr,PRN:as needed for pain Start Date: 12/24/14 Status: Ordered Advair Diskus 250 mcg-50 mcg inhalation powder See Instructions, INHALE 1 PUFF BY INHALATION ROUTE 2 TIMES EVERY DAY IN THE MORNING AND EVENING APPROXIMATELY 12 HOURS APART, # 1 unknown unit, eRx: [id number], INHALE 1 PUFF BY INHALATION ROUTE 2 TIMES EVERY DAY IN THE MORNING AND EV... Start Date: 02/25/15 Status: Ordered Bactrim DS 800 mg-160 mg oral tablet 1 tabs, Oral, BID, X 7 days, # 14 tabs, 0 Refill(s) Start Date: 01/19/16 Stop Date: 01/26/16 Status: Ordered Carafate 1 g oral tablet [...] Daily, # 30 tabs, 5 Refill(s), Pharmacy: [id number], 1 tabs Oral Daily Start Date: 09/01/15 Status: Ordered codeine-guaiFENesin 10 mg-300 mg/5 mL oral liquid 5 mL, Oral, q6hr, as needed for cough, # 120 mL, 0 Refill(s) Start Date: 12/21/15 Status: Ordered Flonase 50 mcg/inh nasal spray 2 sprays, Nasal, Daily, # 1 Each, 5 Refill(s), Pharmacy: [facility] [id number] Start Date: 12/12/15 Status: Ordered ibuprofen 800 mg oral tablet 800 mg 1 tabs, Oral, TID, Pain, # 15 tabs, 0 Refill(s) Start Date: 12/07/15 Status: Ordered loratadine 10 mg oral tablet 10 mg, Oral, Daily, # 30 tabs, 5 Refill(s), Pharmacy: [id number] , 10 mg Oral Daily Start Date: 01/14/15 Status: Ordered meloxicam 15 mg oral tablet 15 mg 1 tabs, Oral, Daily, # 30 tabs, 0 Refill(s) Start Date: 12/12/15 Status: Ordered Mobic 7.5 mg oral tablet 7.5 mg 1 tabs, Oral, Daily, # 7 tabs, 0 Refill(s), Pharmacy: [facility], 1 tabs Oral Daily,x7 days Start Date: 01/20/16 Stop Date: 01/27/16 Status: Ordered Naprosyn 500 mg oral tablet [...] # 1 Each, 1 Refill(s), [id number] Start Date: 06/11/15 Status: Ordered Robitussin DM To Go 20 mg-200 mg/10 mL oral liquid 10 mL, Oral, q4hr, as needed for cough, # 100 mL, 0 Refill(s), Pharmacy: [id number] Start Date: 12/12/15 Status: Ordered Vitamin D3 [...] combined right and left heart Tonsillectomy Tympanostomy [place] tooth 1auto-populated from documented surgical case 2auto-populated [...]
--- OUTSIDE RECORDS SUMMARY | 2017-01-20 22:00 | XMS REPORT | Referral Summary ---
Author Author [facility] Organization [facility] Address Unknown Phone Unavailable Care Team Providers Care Earth Moving Technician Name Role Phone Imelda Martin Primary Care Physician [phone] Encounter VC Date(s): 03/14/15 - 03/14/15 [facility] [address] [place] [address] Final: UNSPECIFIED GASTRITIS AND GASTRODUODENITIS, WITHOUT MENTION OF HEMORRHAGE Final: TOBACCO USE DISORDER Discharge Diagnosis: Gastritis Discharge Diagnosis: Chronic abdominal pain Discharge Disposition: 01-Home or Self Care Attending Physician: Prateek Preciado DO Admitting Physician: Prateek Preciado DO Referring Physician: No PCP, Pt States Vital Signs Most recent to 1 oldest [Reference Range]: Temperature Oral 36.5 degC [35.8-37.3 degC] (03/14/15 6:32 PM) Peripheral Pulse 86 bpm Rate [60-100 bpm] (03/14/15 6:32 PM) Heart Rate Monitored 86 bpm [60-100 bpm] (03/14/15 6:10 PM) Respiratory Rate 18 br/min [14-20 br/min] (03/14/15 6:32 PM) Blood Pressure 104/58 mmHg [90-140/60-90 mmHg] (03/14/15 6:32 PM) Mean Arterial 69 mmHg Pressure, Cuff (03/14/15 6:10 PM) SpO2 98 % (03/14/15 6:32 PM) Problem List Condition Effective Dates Status Health Status Informant Acid Active patient reflux(Confirmed) Acute Active pain(Confirmed) ADD(Confirmed) Active Allergic rhinitis, Active cause unspecified(Confirme d) Anemia(Confirmed) Active Anxiety state Active (finding)(Confirmed) Asthma(Confirmed) Active Asthma without Active status asthmaticus (disorder)(Confirmed ) Atypical chest Active pain(Confirmed) Bronchitis(Confirmed Resolved ) Chest Resolved pain(Confirmed) Depressive [...] pain, # 300 mL, 0 Refill(s), Pharmacy: [id number], 10 mL Oral q6hr,PRN:as needed for pain Start Date: 12/24/14 Status: Ordered Advair Diskus 250 mcg-50 mcg inhalation powder See Instructions, INHALE 1 PUFF BY INHALATION ROUTE 2 TIMES EVERY DAY IN THE MORNING AND EVENING APPROXIMATELY 12 HOURS APART, # 1 unknown unit, eRx: [id number], INHALE 1 PUFF BY INHALATION ROUTE 2 TIMES EVERY DAY IN THE MORNING AND EV... Start Date: 02/25/15 Status: Ordered albuterol 2.5 mg/3 mL (0.083%) inhalation solution 3 mL, Inhalation, q6hr (scheduled), # 60 Each, 1 Refill(s), Pharmacy: [facility] [id number], 3 mL Inhalation q6hr (scheduled) Start Date: 02/13/15 Status: Ordered Atrovent 42 mcg/inh nasal spray 2 sprays, Nasal, TID, # 2 Each, 5 Refill(s), Pharmacy: [facility] [id number] Start Date: 06/11/15 Stop Date: 06/11/16 Status: Ordered Carafate 1 g oral tablet 1 g 1 tabs, Oral, QID, Dissolve in water and drink, # 40 tabs, 0 Refill(s) Start Date: 08/31/15 Status: Ordered cetirizine 10 mg oral tablet 10 mg 1 tabs, Oral, Daily, # 30 tabs, 5 Refill(s), Pharmacy: [facility] [id number], 1 tabs Oral Daily Start Date: 09/01/15 Status: Ordered levETIRAcetam 500 mg oral tablet See Instructions, TAKE 3 TABLETS BY MOUTH TWICE DAILY, # 180 tabs, 12 Refill(s) , eRx: [id number], TAKE 3 TABLETS BY MOUTH TWICE DAILY Start Date: 02/27/15 Status: Ordered Linzess 290 mcg oral capsule 1 caps, Oral, Daily, # 30 caps, 6 Refill(s), [id number], 1 caps Oral Daily Start Date: 02/24/15 Status: Ordered loratadine 10 mg oral tablet 10 mg, Oral, Daily, # 30 tabs, 5 Refill(s), [id number] , 10 mg Oral Daily Start Date: 01/14/15 Status: Ordered Minocin 100 mg oral capsule 100 mg 1 caps, Oral, q12hr, X 10 days, # 20 caps, 0 Refill(s) Start Date: 09/14/15 Stop Date: 09/24/15 Status: Ordered ondansetron 4 mg oral tablet 4 mg 1 tabs, Oral, q4hr, Nausea or Vomiting, # 12 tabs, 0 Refill(s) Start Date: 04/05/15 Status: Ordered Pepcid 20 mg oral tablet 20 mg 1 tabs, Oral, BID, # 60 tabs, 0 Refill(s) Start Date: 09/14/15 Status: Ordered Pepcid 20 mg oral tablet 20 mg 1 tabs, Oral, Daily, # 7 tabs, 0 Refill(s) Start Date: 07/16/15 Stop Date: 07/23/15 Status: Ordered ProAir HFA 90 mcg/inh inhalation aerosol See Instructions, 2-4 puffs every 4-6 hrs prn., # 1 Each, 1 Refill(s), Pharmacy : [facility] [id number] Start Date: 06/11/15 Status: Ordered traZODone Oral, 0 Refill(s) Start Date: 04/05/15 Status: Ordered Viibryd Oral, Daily, 0 Refill(s) Start Date: 04/05/15 Status: Ordered Vitamin D3 1,000 Intl_Units, Oral, Daily, 0 Refill(s) Start Date: 10/26/14 Status: Ordered Zofran ODT 4 mg oral tablet, disintegrating 1 tabs, Oral, TID, as needed for nausea/vomiting, # 10 tabs, 0 Refill(s) Start Date: 11/21/14 Status: Ordered Results Hematology Most recent to 1 oldest [Reference Range]: WBC [4.8-10.8 9.7 10*3/uL 10*3/uL] (03/14/15 5:04 PM) RBC [4.00-5.20 4.47 10*6/uL 10*6/uL] (03/14/15 5:04 PM) Hgb [12.0-16.0 12.2 gm/dL gm/dL] (03/14/15 5:04 PM) Hct [37.0-47.0 %] 38.4 % (03/14/15 5:04 PM) MCV [82.0-99.0 fL] 85.9 fL (03/14/15 5:04 PM) MCH [27.0-32.0 pg] 27.3 pg (03/14/15 5:04 PM) MCHC [32.0-36.0 31.8 gm/dL gm/dL] *LOW* (03/14/15 5:04 PM) RDW [11.5-14.5 %] 16.9 % *HI* (03/14/15 5:04 PM) Platelet [150-400 254 10*3/uL 10*3/uL] (03/14/15 5:04 PM) MPV [9.4-12.4 fL] 9.8 fL (03/14/15 5:04 PM) Immature 0.3 % Granulocytes (03/14/15 5:04 PM) [0.0-1.0 %] Neutrophils [51-75 69 % %] (03/14/15 5:04 PM) Lymphocytes [20-46 20 % %] (03/14/15 5:04 PM) Monocytes [4-11 %] 9 % (03/14/15 5:04 PM) Eosinophils [0-4 %] 1 % (03/14/15 5:04 PM) Basophils [0-2 %] 0 % (03/14/15 5:04 PM) Neutro Absolute 6.66 10*3 [1.90-7.00 10*3] (03/14/15 5:04 PM) Lymph Absolute 1.91 10*3 [0.80-3.30 10*3] (03/14/15 5:04 PM) [place] Absolute 0.91 10*3 [0.30-1.00 10*3] (03/14/15 5:04 PM) Eos Absolute 0.14 10*3 [0.00-0.50 10*3] (03/14/15 5:04 PM) Baso Absolute 0.03 10*3 [0.00-0.20 10*3] (03/14/15 5:04 PM) Chemistry Most recent to 1 oldest [Reference Range]: Sodium Lvl [136-144 135 mEq/L mEq/L] *LOW* (03/14/15 5: PM) Potassium Lvl 3.9 mEq/L [3.6-5.1 mEq/L] (03/14/15:04 PM) Chloride [99-109 102 mEq/L mEq/L] (03/14/15 5:04 PM) CO2 [22-32 mEq/L] 25 mEq/L (03/14/15 5:04 PM) AGAP [3-20] 8 (03/14/15 5:04 PM) BUN [4-20 mg/dL] 8 mg/dL (03/14/15 5:04 PM) Glucose Lvl [70-100 110 mg/dL mg/dL] *HI* (03/14/15 5:04 PM) Creatinine Lvl 0.58 mg/dL [0.44-1.03 mg/dL] (03/14/15 5:04 PM) eGFR [>60] >60 1 (03/14/15: PM) Calcium Lvl 9.0 mg/dL [8.6-10.0 mg/dL] (03/14/15 5:04 PM) Albumin Lvl [3.5-4.8 3.6 gm/dL gm/dL] (03/14/15 5:04 PM) Total Protein 7.6 gm/dL [6.1-7.9 gm/dL] (03/14/15 5:04 PM) Globulin [1.9-4.3 4.0 gm/dL gm/dL] (03/14/15 5:04 PM) ALT [14-54 U/L] 14 U/L (03/14/15 5:04 PM) AST [15-41 U/L] 20 U/L (03/14/15 5:04 PM) Alk Phos [26-104 93 U/L U/L] (03/14/15 5:04 PM) Bili Total [0.2-1.2 0.7 mg/dL 2 mg/dL] (03/14/15 5:04 PM) 1Result Comment: Multiply eGFR results by 1.21 for race. 2Result Comment: Naproxen, specifically the metabolite O-desmethylnaproxen, may cause spurious elevation in Total Bilirubin levels. Urinalysis Most recent to 1 oldest [Reference Range]: UA Color Lt Yellow (03/14/15 5:04 PM) UA Appear Clear (03/14/15 5:04 PM) UA pH [5.0-8.0] 7.0 (03/14/15 5:04 PM) UA Leuk Est Negative [Negative] (03/14/15 5:04 PM) UA Nitrite Negative [Negative] (03/14/15 5:04 PM) UA Protein Negative [Negative] (03/14/15 5:04 PM) UA Glucose Negative [Negative] (03/14/15 5:04 PM) UA Ketones Negative [Negative] (03/14/15 5:04 PM) UA Urobilinogen Negative [<1.0] (03/14/15 5:04 PM) UA Bili [Negative] Negative (03/14/15 5:04 PM) UA Blood [Negative] Trace *ABN* (03/14/15 5:04 PM) UA Spec Grav 1.023 [1.003-1.030] (03/14/15 5:04 PM) Type Clean Catch (03/14/15 5:04 PM) UA WBC [0-4] 2-5 (03/14/15 5:04 PM) UA RBC [0-2] 0-2 (03/14/15 5:04 PM) Epithelial Cells 2-5 (03/14/15 5:04 PM) UA Bacteria Occasional *ABN* (03/14/15 5:04 PM) UA Mucous Present (03/14/15 5:04 PM) Immunizations Vaccine Date Refusal Reason pneumococcal 23-polyvalent vaccine 11/18/14 Procedures Procedure Date Related Diagnosis Body Site Esophagogastroduodenoscopy Balloon Dilat1 02/14/15 Examination Under Anesthesia2 02/14/15 Adenoidectomy Bilateral tubal ligation Bronchoscope Cardiac catheterization, combined right and left heart Tonsillectomy Tympanostomy [place] tooth 1auto-populated from documented surgical case 2auto-populated from documented surgical case Social History Social History Type Response Smoking Status Former smoker; Type: Cigarettes; Tobacco use per day: 1 Pack1 1quit 05/2015 Assessment and Plan No data available for this section
--- OUTSIDE RECORDS SUMMARY | 2017-01-20 22:00 | XMS REPORT | Referral Summary ---
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 Name Role Phone Imelda Martin Primary Care Physician [phone] Encounter VC Date(s): 11/08/15 - 11/09/15 [facility] [address], [place] [address] Discharge Diagnosis: Seizure-like activity Discharge Diagnosis: Seizure Discharge Diagnosis: Nonepileptic episode Discharge Disposition: 01-Home or Self Care Attending Physician: Ramona Otto DO Admitting Physician: Ramona Otto DO Vital Signs Most recent to 1 oldest [Reference Range]: Temperature Oral 36.2 degC [35.8-37.3 degC] (11/09/15 1:45 AM) Peripheral Pulse 76 bpm Rate [60-100 bpm] (11/09/15 1:45 AM) Heart Rate Monitored 93 bpm [60-100 bpm] (11/09/15 1:30 AM) Respiratory Rate 16 br/min [14-20 br/min] (11/09/15 1:45 AM) Blood Pressure 114/90 mmHg [90-140/60-90 mmHg] (11/09/15 1:45 AM) Mean Arterial 102 mmHg Pressure, Cuff (11/09/15 1:30 AM) SpO2 99 % (11/09/15 1:45 AM) Problem List Condition Effective Dates Status [...] pain, # 300 mL, 0 Refill(s), Pharmacy: [facility] [id number], 10 mL Oral q6hr,PRN:as needed for pain Start Date: 12/24/14 Status: Ordered Advair Diskus 250 mcg-50 mcg inhalation powder See Instructions, INHALE 1 PUFF BY INHALATION ROUTE 2 TIMES EVERY DAY IN THE MORNING AND EVENING APPROXIMATELY 12 HOURS APART, # 1 unknown unit, eRx: [facility] [id number], INHALE 1 PUFF BY INHALATION ROUTE 2 TIMES EVERY DAY IN THE MORNING AND EV... Start Date: 02/25/15 Status: Ordered Atrovent 42 mcg/inh nasal spray 2 sprays, Nasal, TID, # 2 Each, 5 Refill(s), Pharmacy: [facility] [id number] Start Date: 06/11/15 Stop Date: 06/11/16 Status: Ordered Carafate 1 g oral tablet 1 g 1 tabs, Oral, QID, Dissolve in water and drink, # 40 tabs, 0 Refill(s) Start Date: 08/31/15 Status: Ordered cetirizine 10 mg oral tablet 10 mg 1 tabs, Oral, Daily, # 30 tabs, 5 Refill(s), Pharmacy: [facility] [id number], 1 tabs Oral Daily Start Date: 09/01/15 Status: Ordered Linzess 290 mcg oral capsule 1 caps, Oral, Daily, # 30 caps, 6 Refill(s), Pharmacy: [facility] [id number], 1 caps Oral Daily Start Date: 02/24/15 Status: Ordered loratadine 10 mg oral tablet 10 mg, Oral, Daily, # 30 tabs, 5 Refill(s), Pharmacy: [facility] [id number] , 10 mg Oral Daily Start Date: [...] # 1 Each, 1 Refill(s), Pharmacy : [facility] [id number] Start Date: 06/11/15 Status: Ordered traZODone Oral, 0 Refill(s) Start Date: 04/05/15 Status: Ordered Viibryd Oral, Daily, 0 Refill(s) Start Date: 04/05/15 Status: Ordered Vitamin D3 1,000 Intl_Units, Oral, Daily, 0 Refill(s) Start Date: 10/26/14 Status: Ordered Results Hematology Most recent to 1 oldest [Reference Range]: WBC [4.8-10.8 8.9 10*3/uL 10*3/uL] (11/09/15 12:02 AM) RBC [4.00-5.20] 4.73 (11/09/15 12:02 AM) Hgb [12.0-16.0 11.7 gm/dL gm/dL] *LOW* (11/09/15 12:02 AM) Hct [37.0-47.0 %] 38.6 % (11/09/15 12:02 AM) MCV [82.0-99.0 fL] 81.6 fL *LOW* (11/09/15 12:02 AM) MCH [27.0-32.0 pg] 24.7 pg *LOW* (11/09/15 12:02 AM) MCHC [32.0-36.0 30.3 gm/dL gm/dL] *LOW* (11/09/15 12:02 AM) RDW [11.5-14.5 %] 19.1 % *HI* (11/09/15 12:02 AM) Platelet [150-400 207 10*3/uL 10*3/uL] (11/09/15 12:02 AM) MPV [9.4-12.4 fL] 9.7 fL (11/09/15 12:02 AM) Immature 0.2 % Granulocytes (11/09/15:02 AM) [0.0-1.0 %] Neutrophils [51-75 67 % %] (11/09/15 12:02 AM) Lymphocytes [20-46 22 % %] (11/09/15 12:02 AM) Monocytes [4-11 %] 8 % (11/09/15 12:02 AM) Eosinophils [0-4 %] 2 % (11/09/15 12:02 AM) Basophils [0-2 %] 1 % (11/09/15 12:02 AM) Neutro Absolute 5.98 10*3 [1.90-7.00 10*3] (11/09/15 12:02 AM) Lymph Absolute 1.97 10*3 [0.80-3.30 10*3] (11/09/15 12:02 AM) [place] Absolute 0.68 10*3 [0.30-1.00 10*3] (11/09/15 12:02 AM) Eos Absolute 0.13 10*3 [0.00-0.50 10*3] (11/09/15 12:02 AM) Baso Absolute 0.12 10*3 [0.00-0.20 10*3] (11/09/15 12:02 AM) Nucleated RBC 0.0 /100 WBC Automated [0 /100 (11/09/15 12:02 AM) WBC] Chemistry Most recent to 1 oldest [Reference Range]: Sodium Lvl [136-144 138 mEq/L mEq/L] (11/09/15 12:02 AM) Potassium Lvl 3.8 mEq/L 1 [3.6-5.1 mEq/L] (11/09/15 12:02 AM) Chloride [99-109 105 mEq/L mEq/L] (11/09/15 12:02 AM) CO2 [22-32 mEq/L] 23 mEq/L (11/09/15 12:02 AM) AGAP [3-20] 10 (11/09/15 12:02 AM) BUN [4-20 mg/dL] 5 mg/dL (11/09/15 12:02 AM) Glucose Lvl [70-100 87 mg/dL mg/dL] (11/09/15 12:02 AM) Creatinine Lvl 0.64 mg/dL [0.44-1.03 mg/dL] (11/09/15 12:02 AM) eGFR [>60] >60 2 (11/09/15 12:02 AM) Calcium Lvl 8.8 mg/dL [8.6-10.0 mg/dL] (11/09/15 12:02 AM) Screen, Negative Urine NPT (11/09/15 12:56 AM) 1Result Comment: Hemolyzed specimen. The following tests may be affected: ALT, AST, Ammonia, Iron, Potassium, LDH, Amylase, CPK, and Total Bilirubin. 2Result Comment: Multiply eGFR results by 1.21 for race. Toxicology Most recent to 1 oldest [Reference Range]: U Amphetamine Scrn Negative (11/09/15 12:47 AM) U Cocaine Scrn Negative (11/09/15 12:47 AM) U Cannab Scrn Negative (11/09/15 12:47 AM) U Opiate Scrn Positive *ABN* (11/09/15 12:47 AM) U PCP Scrn Negative (11/09/15 12:47 AM) U Benzodiazepine Negative Scrn (11/09/15 12:47 AM) U Barbiturate Scrn Positive *ABN* (11/09/15 12:47 AM) Methadone Lvl Negative (11/09/15 12:47 AM) Tricyclics Positive 1 *ABN* (11/09/15 12:47 AM) 1Result Comment: Cut-off concentrations: Amphetamines: 1000 [...] oldest [Reference Range]: UA Color Adri *ABN* (11/09/15 12:48 AM) UA Appear Cloudy *ABN* (11/09/15 12:48 AM) UA pH [5.0-8.0] 5.0 (11/09/15 12:48 AM) UA Leuk Est Pos 1+ [Negative] *ABN* (11/09/15 12:48 AM) UA Nitrite Negative [Negative] (11/09/15 12:48 AM) UA Protein Pos 2+ [Negative] *ABN* (11/09/15 12:48 AM) UA Glucose Negative [Negative] (11/09/15 12:48 AM) UA Ketones Negative [Negative] (11/09/15 12:48 AM) UA Urobilinogen 2.0 mg/dL [<1.0 mg/dL] *ABN* (11/09/15 12:48 AM) UA Bili [Negative] Positive *ABN* (11/09/15 12:48 AM) UA Blood [Negative] Negative (11/09/15 12:48 AM) UA Spec Grav >=1.045 [1.003-1.030] *ABN* (11/09/15 12:48 AM) Type Clean Catch (11/09/15 12:48 AM) UA WBC [0-4] 5-10 *ABN* (11/09/15 12:48 AM) UA RBC [0-2] 0-2 (11/09/15 12:48 AM) Epithelial Cells 10-20 (11/09/15 12:48 AM) UA Bacteria Rare (11/09/15 12:48 AM) Crystals Ca Ox (11/09/15 12:48 AM) UA Mucous Present (11/09/15 12:48 AM) Immunizations Vaccine Date Refusal Reason pneumococcal 23-polyvalent vaccine 11/18/14 Procedures Procedure Date Related Diagnosis Body Site Esophagogastroduodenoscopy Balloon Dilat1 02/14/15 Examination Under Anesthesia2 02/14/15 Adenoidectomy Bilateral tubal ligation Bronchoscope Cardiac catheterization, combined right and left heart Tonsillectomy Tympanostomy [place] tooth 1auto-populated from documented surgical case 2auto-populated from documented surgical case Social History Social History Type Response Smoking Status Never smoker Assessment and Plan No data available for this section
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
--- OUTSIDE RECORDS SUMMARY | 2017-01-20 22:01 | XMS REPORT | Referral Summary ---
Author Author [facility] Organization [facility] Address Unknown Phone Unavailable Care Team Providers Care Business Center Representative Name Role Phone [facility] Primary Care Physician Unavailable Encounter [facility] [id number] Date(s): 02/17/16 - 02/18/16 [facility] [address] [place] [address] Discharge Diagnosis: Lumbosacral pain Discharge Disposition: 01-Home or Self Care Attending Physician: Chris Barone MD Admitting Physician: Chris Barone MD Referring Physician: Self Referred, X Vital Signs Most recent to 1 oldest [Reference Range]: Temperature Oral 36.5 degC [35.8-37.3 degC] (02/18/16 12:48 AM) Peripheral Pulse 72 bpm Rate [60-100 bpm] (02/18/16 1:06 AM) Respiratory Rate 18 br/min [14-20 br/min] (02/18/16 1:06 AM) Blood Pressure 94/55 mmHg [90-140/60-90 mmHg] (02/18/16 1:06 AM) SpO2 98 % (02/18/16 1:06 AM) Problem List Condition Effective Dates Status [...] HOURS APART, # 1 unknown unit, eRx: [id number], INHALE 1 PUFF BY INHALATION ROUTE 2 TIMES EVERY DAY IN THE MORNING AND EV... Start Date: 02/25/15 Status: Ordered Carafate 1 g/10 mL oral suspension 10 mL, Oral, QIDACHS, # 280 mL, 0 Refill(s), Pharmacy: [facility], 10 mL Oral QIDACHS Start Date: 02/15/16 Status: Ordered cetirizine 10 mg oral tablet 10 mg 1 tabs, Oral, Daily, # 30 tabs, 5 Refill(s), Pharmacy: [facility] [id number], 1 tabs Oral Daily Start Date: 09/01/15 [...] prn, # 5 mL, 5 Refill(s), Pharmacy: [facility] Start Date: 02/02/16 Status: Ordered Pepcid 20 mg oral tablet 20 mg 1 tabs, Oral, BID, # 60 tabs, 0 Refill(s) Start Date: 09/14/15 Status: Ordered ProAir HFA 90 mcg/inh inhalation aerosol See Instructions, 2-4 puffs every 4-6 hrs prn., # 1 Each, 1 Refill(s), Pharmacy : [id number] Start Date: 06/11/15 Status: Ordered Singulair qPM, [...] combined right and left heart Tonsillectomy Tympanostomy [place] tooth 1auto-populated from documented surgical case 2auto-populated [...]
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
--- OUTSIDE RECORDS SUMMARY | 2017-01-20 22:01 | XMS REPORT | Referral Summary ---
Author Organization Unknown Address Unknown Phone Unavailable Care Team Providers Care Manager Product Marketing Name Role Phone Pardeep Poole Primary Care Physician [phone] Encounter [facility] Date(s): 01/31/15 - 01/31/15 [facility] [address] [place] [address] [place] ( 1 ) - Final: DIARRHEA Final: TOBACCO USE DISORDER Discharge Diagnosis: Diarrhea Discharge Disposition: Home or Self Care Attending Physician: Quinton Mixon MD Admitting Physician: Quinton Mixon MD Referring Physician: Self Referred, X Vital Signs Most recent to 1 oldest [Reference Range]: Temperature Oral 36.5 degC [35.8-37.3 degC] (01/31/15 12:38 AM) Peripheral Pulse 86 bpm Rate [60-100 bpm] (01/31/15 1:52 AM) Respiratory Rate 18 br/min [14-20 br/min] (01/31/15 1:52 AM) Blood Pressure 107/71 mmHg [90-140/60-90 mmHg] (01/31/15 1:52 AM) Most recent to 1 oldest [Reference Range]: SpO2 95 % (01/31/15 12:38 AM) Problem List Condition Effective Dates Status [...] pain, # 300 mL, 0 Refill(s), Pharmacy: [facility] [id number], 10 mL Oral q6hr,PRN:as needed for pain Start Date: 12/24/14 Status: Ordered Advair Diskus 250 mcg-50 mcg inhalation powder See Instructions, INHALE 1 PUFF BY INHALATION ROUTE 2 TIMES EVERY DAY IN THE MORNING AND EVENING APPROXIMATELY 12 HOURS APART, # 1 unknown unit, eRx: [facility] [id number], INHALE 1 PUFF BY INHALATION ROUTE 2 TIMES EVERY DAY IN THE MORNING AND EV... Special Instructions: INHALE 1 PUFF BY INHALATION ROUTE 2 TIMES EVERY DAY IN THE MORNING AND EVENING APPROXIMATELY 12 HOURS APART Start Date: 01/29/15 Status: Ordered AZO Urinary Pain Relief 97.5 mg oral tablet 1 tabs, Oral, TID, as needed for urinary discomfort, X 2 days, # 6 tabs, 0 Refill(s) Start Date: 01/31/15 Stop Date: 02/02/15 Status: Ordered Bactrim DS 800 mg-160 mg oral tablet 1 tabs, Oral, BID, X 5 days, # 10 tabs, 0 Refill(s) Start Date: 01/31/15 Stop Date: 02/05/15 Status: Ordered Bactroban 2% topical ointment See Instructions, Apply in a thin film twice a day to area., # 22 g, 0 Refill(s) , Pharmacy: [facility] [id number] Special Instructions: Apply in a thin film twice a day to area. Start Date: 01/23/15 Status: Ordered FLUoxetine 20 mg oral capsule 20 mg, Oral, qAM, # 30 caps, 2 Refill(s), Pharmacy: [facility] [id number], 20 mg Oral qAM Start Date: 01/14/15 Status: Ordered imipramine 25 mg oral tablet 2 tabs, Oral, Bedtime (once a day), # 60 tabs, 3 Refill(s), Pharmacy: [id number], 2 tabs Oral Bedtime (once a day) Start Date: 12/30/14 Status: Ordered Latuda 60 mg, Oral, qPM, with food, 0 Refill(s) Special Instructions: with food Start Date: 03/29/14 Status: Ordered levETIRAcetam 1,500 mg, Oral, BID, 0 Refill(s) Start Date: 11/18/14 Status: Ordered loratadine 10 mg oral tablet 10 mg, Oral, Daily, # 30 tabs, 5 Refill(s), Pharmacy: [facility] [id number] , 10 mg Oral Daily Start Date: 01/14/15 Status: Ordered Macrobid 100 mg oral capsule 1 caps, Oral, BID, X 10 days, # 20 caps, 0 Refill(s) Start Date: 01/29/15 Stop Date: 02/08/15 Status: Ordered mirtazapine 45 mg, Oral, Bedtime (once a day), 0 Refill(s) Start Date: 11/18/14 Status: Ordered Naprosyn 500 mg oral tablet 1 tabs, Oral, BID, as needed for pain, # 20 tabs, 0 Refill(s) Start Date: 01/11/15 Status: Ordered pantoprazole 40 mg oral delayed [...] Range]: Sodium Venous 142 mEq/L [136-144 mEq/L] (01/31/15 1:15 AM) Potassium Venous 3.5 mEq/L 1 [3.6-5.1 mEq/L] *LOW* (01/31/15 1:15 AM) Calcium Ionized 1.27 mmol/L Venous [1.19-1.41 (01/31/15 1:15 AM) mmol/L] Total CO2 Venous 24 mEq/L [25-29 mEq/L] *LOW* (01/31/15 1:15 AM) HGB Venous NPT 11.2 gm/dL [12.0-16.0 gm/dL] *LOW* (01/31/15 1:15 AM) HCT Venous 33.0 % [37.0-47.0 %] *LOW* (01/31/15 1:15 AM) Glucose Venous 116 mg/dL [70-100 mg/dL] *HI* (01/31/15 1:15 AM) BUN Venous [4-20] 9 (01/31/15 1:15 AM) Creatinine Venous 0.7 mg/dL [0.4-1.0 mg/dL] (01/31/15 1:15 AM) Venous CL [99-109 104 mEq/L mEq/L] (01/31/15 1:15 AM) Anion Gap, Darron 14 [3-20] (01/31/15 1:15 AM) 1Result Comment: This test was performed on a whole blood specimen. The presence or absence of hemolysis cannot be assessed. Hemolysis can falsely elevate potassium levels. Normals are for venous specimens only. Urinalysis Most recent to 1 oldest [Reference Range]: Type Venous (01/31/15 1:15 AM) Immunizations Vaccine Date Refusal Reason pneumococcal 23-polyvalent vaccine 11/18/14 Procedures Procedure Date Related Diagnosis Body Site Adenoidectomy Bilateral tubal ligation Bronchoscope Tonsillectomy Tympanostomy [place] tooth Social History Social History Type Response Smoking Status Current every day smoker; Type: Cigarettes; Tobacco use per day: Pack Assessment and Plan No data available for this section
--- OUTSIDE RECORDS SUMMARY | 2017-01-20 22:01 | XMS REPORT | Referral Summary ---
Author Author [facility] Organization [facility] Address Unknown Phone Unavailable Care Team Providers Care Tanning Solution Maker Name Role Phone Imelda Martin Primary Care Physician [phone] Encounter [facility] Date(s): 06/03/16 - 06/04/16 [facility] [address] [place] [address] Discharge Disposition: 01-Home or Self Care Attending Physician: Demarcus Lin JR, DO Admitting Physician: Demarcus Lin JR, DO Vital Signs Most recent to 1 oldest [Reference Range]: Temperature Oral 37.0 degC [35.8-37.3 degC] (06/03/16 11:32 PM) Temperature Temporal 35.8 degC Artery [36.3-37.8 *LOW* degC] (06/04/16 8:05 AM) Peripheral Pulse 115 bpm Rate [60-100 bpm] *HI* (06/04/16 6:23 AM) Heart Rate Monitored 76 bpm [60-100 bpm] (06/04/16 9:00 AM) Respiratory Rate 18 br/min [14-20 br/min] (06/04/16 8:05 AM) Blood Pressure 91/60 mmHg [90-140/60-90 mmHg] (06/04/16 9:00 AM) Mean Arterial 83 mmHg Pressure, Cuff (06/04/16 5:48 AM) SpO2 94 % (06/04/16 9:00 AM) Problem List Condition Effective Dates Status [...] QIDACHS, # 280 mL, 0 Refill(s), Pharmacy: [facility], 10 mL Oral QIDACHS Start [...] combined right and left heart Tonsillectomy Tympanostomy [place] tooth 1auto-populated from documented surgical case 2auto-populated from documented surgical case 3auto-populated from documented surgical case 4auto-populated from documented surgical case 5auto-populated from documented surgical case Social History Social History Type Response Smoking Status Never smoker Assessment and Plan No data available for this section
--- OUTSIDE RECORDS SUMMARY | 2017-01-20 22:01 | XMS REPORT | Referral Summary ---
Author Author [facility] Organization [facility] Address Unknown Phone Unavailable Care Team Providers Care Nurse Case Management Name Role Phone Imelda Martin Primary Care Physician [phone] Encounter VC Date(s): 03/04/15 - 03/05/15 [facility] [address] [place] [address] Discharge Diagnosis: IBS (irritable bowel syndrome) Final: IRRITABLE BOWEL SYNDROME Final: TOBACCO USE DISORDER Discharge Disposition: 01-Home or Self Care Attending Physician: Jefferson Barbosa DO Admitting Physician: Jefferson Barbosa DO Vital Signs Most recent to 1 oldest [Reference Range]: Temperature Oral 36.8 degC [35.8-37.3 degC] (03/04/15 8:47 PM) Peripheral Pulse 87 bpm Rate [60-100 bpm] (03/05/15 1:05 AM) Heart Rate Monitored 87 bpm [60-100 bpm] (03/05/15 12:50 AM) Respiratory Rate 18 br/min [14-20 br/min] (03/05/15 1:05 AM) Blood Pressure 125/78 mmHg [90-140/60-90 mmHg] (03/05/15 1:05 AM) Mean Arterial 85 mmHg Pressure, Cuff (03/05/15 12:50 AM) SpO2 95 % (03/05/15 1:05 AM) Problem List Condition Effective Dates Status [...] pain, # 300 mL, 0 Refill(s), Pharmacy: [facility] [id number], 10 mL Oral q6hr,PRN:as needed for pain Start Date: 12/24/14 Status: Ordered Advair Diskus 250 mcg-50 mcg inhalation powder See Instructions, INHALE 1 PUFF BY INHALATION ROUTE 2 TIMES EVERY DAY IN THE MORNING AND EVENING APPROXIMATELY 12 HOURS APART, # 1 unknown unit, eRx: [facility] [id number], INHALE 1 PUFF BY INHALATION ROUTE 2 TIMES EVERY DAY IN THE MORNING AND EV... Start Date: 02/25/15 Status: Ordered albuterol 2.5 mg/3 mL (0.083%) inhalation solution 3 mL, Inhalation, q6hr (scheduled), # 60 Each, 1 Refill(s), Pharmacy: [facility] [id number], 3 mL Inhalation q6hr (scheduled) Start Date: 02/13/15 Status: Ordered Atrovent 42 mcg/inh nasal spray 2 sprays, Nasal, TID, # 2 Each, 5 Refill(s), Pharmacy: [facility] [id number] Start Date: 06/11/15 Stop Date: 06/11/16 Status: Ordered Carafate 1 g oral tablet 1 g 1 tabs, Oral, QID, Dissolve in water and drink, # 40 tabs, 0 Refill(s) Start Date: 08/31/15 Status: Ordered cetirizine 10 mg oral tablet 10 mg 1 tabs, Oral, Daily, # 30 tabs, 5 Refill(s), Pharmacy: [facility] [id number], 1 tabs Oral Daily Start Date: 09/01/15 Status: Ordered levETIRAcetam 500 mg oral tablet See Instructions, TAKE 3 TABLETS BY MOUTH TWICE DAILY, # 180 tabs, 12 Refill(s) , eRx: [facility] [id number], TAKE 3 TABLETS BY MOUTH TWICE DAILY Start Date: 02/27/15 Status: Ordered Linzess 290 mcg oral capsule 1 caps, Oral, Daily, # 30 caps, 6 Refill(s), Pharmacy: [facility] [id number], 1 caps Oral Daily Start Date: 02/24/15 Status: Ordered loratadine 10 mg oral tablet 10 mg, Oral, Daily, # 30 tabs, 5 Refill(s), Pharmacy: [facility] [id number] , 10 mg Oral Daily Start Date: [...] Status: Ordered predniSONE 20 mg oral tablet 20 mg 1 tabs, Oral, Daily, 2 tabs day 1, then 1 tab daily with food, X 7 days, # 8 tabs, 0 Refill(s) Start Date: 09/14/15 Stop Date: 09/21/15 Status: Ordered ProAir HFA 90 mcg/inh inhalation aerosol See Instructions, 2-4 puffs every 4-6 hrs prn., # 1 Each, 1 Refill(s), Pharmacy : [facility] [id number] Start Date: 06/11/15 Status: Ordered traZODone Oral, [...] combined right and left heart Tonsillectomy Tympanostomy [place] tooth 1auto-populated from documented surgical case 2auto-populated from documented surgical case Social History Social History Type Response Smoking Status Former smoker; Type: Cigarettes; Tobacco use per day: 1 Pack1 1quit 05/2015 Assessment and Plan No data available for this section
--- OUTSIDE RECORDS SUMMARY | 2017-01-20 22:01 | XMS REPORT | Referral Summary ---
Author Author [facility] Organization [facility] Address Unknown Phone Unavailable Care Team Providers Care Wet End Helper Name Role Phone Imelda Martin Primary Care Physician [phone] Encounter Date(s): 03/17/15 - 03/17/15 [facility] [address] [place] [address] Discharge Diagnosis: Epistaxis, recurrent Discharge Disposition: 01-Home or Self Care Attending Physician: Rafael Katz MD Admitting Physician: Rafael Katz MD Vital Signs No data available for [...] pain, # 300 mL, 0 Refill(s), Pharmacy: [facility] [address], 10 mL Oral q6hr,PRN:as needed for pain Start Date: 12/24/14 Status: Ordered Advair Diskus 250 mcg-50 mcg inhalation powder See Instructions, INHALE 1 PUFF BY INHALATION ROUTE 2 TIMES EVERY DAY IN THE MORNING AND EVENING APPROXIMATELY 12 HOURS APART, # 1 unknown unit, eRx: [facility] [id number], INHALE 1 PUFF BY INHALATION ROUTE 2 TIMES EVERY DAY IN THE MORNING AND EV... Start Date: 02/25/15 Status: Ordered albuterol 2.5 mg/3 mL (0.083%) inhalation solution 3 mL, Inhalation, q6hr (scheduled), # 60 Each, 1 Refill(s), Pharmacy: [facility] [id number], 3 mL Inhalation q6hr (scheduled) Start Date: 02/13/15 Status: Ordered Atrovent 42 mcg/inh nasal spray 2 sprays, Nasal, TID, # 2 Each, 5 Refill(s), Pharmacy: [facility] [id number] Start Date: 06/11/15 Stop Date: 06/11/16 Status: Ordered Carafate 1 g oral tablet 1 g 1 tabs, Oral, QID, Dissolve in water and drink, # 40 tabs, 0 Refill(s) Start Date: 08/31/15 Status: Ordered cetirizine 10 mg oral tablet 10 mg 1 tabs, Oral, Daily, # 30 tabs, 5 Refill(s), Pharmacy: [facility] [address], 1 tabs Oral Daily Start Date: 09/01/15 Status: Ordered levETIRAcetam 500 mg oral tablet See Instructions, TAKE 3 TABLETS BY MOUTH TWICE DAILY, # 180 tabs, 12 Refill(s) , eRx: [facility] [id number], TAKE 3 TABLETS BY MOUTH TWICE DAILY Start Date: 02/27/15 Status: Ordered Linzess 290 mcg oral capsule 1 caps, Oral, Daily, # 30 caps, 6 Refill(s), Pharmacy: [facility] [address], 1 caps Oral Daily Start Date: 02/24/15 Status: Ordered loratadine 10 mg oral tablet 10 mg, Oral, Daily, # 30 tabs, 5 Refill(s), Pharmacy: [facility] [id number] , 10 mg Oral Daily Start Date: [...] # 1 Each, 1 Refill(s), Pharmacy : [facility] [id number] Start Date: 06/11/15 Status: Ordered traZODone Oral, [...] Procedures Procedure Date Related Diagnosis Body Site Control nasal hemorrhage, anterior, simple 03/17/15 (limited cautery and/or packing) any method Esophagogastroduodenoscopy Balloon Dilat1 02/14/15 Examination Under Anesthesia2 02/14/15 Adenoidectomy Bilateral tubal ligation Bronchoscope Cardiac catheterization, combined right and left heart Tonsillectomy Tympanostomy [place] tooth 1auto-populated from documented surgical case 2auto-populated from documented surgical case Social History Social History Type Response Smoking Status Former smoker; Type: Cigarettes; Tobacco use per day: 1 Pack1 1quit 05/2015 Assessment and Plan Extracted from: Title: Ambulatory Patient Education Author: Rafael Katz MD Date: 03/17/15 No follow up information was provided.
--- OUTSIDE RECORDS SUMMARY | 2017-01-20 22:01 | XMS REPORT | Continuity of Care Document ---
Author Author [facility] Organization [facility] Address Unknown Phone Unavailable Care Team Providers Care Movie Writer Name Role Phone OTHER Primary Care Physician [phone] Insurance Providers Guarantor [employer] Address [address] [place] [address] Email DENIED/NO PORTAL Payer [employer] [facility] Policy Number [id number] Subscriber's Name [employer] Relationship 18 Self Effective Date 16 Expiration Date 16 Chief Complaint and Reason for Visit Chief Complaint Abdominal Pain Reason for Visit Drug-seeking behavior Problems Active Problems Medical Problem Onset Date Status Chronic jaw pain Unknown Chronic Chronic knee instability Unknown Chronic Costochondritis Unknown Acute Malaise and fatigue Unknown Acute Mental impairment Unknown Chronic Viral syndrome Unknown Acute Past Problems Medical Problem Onset Date Abdominal pain Unknown Drug-seeking behavior Unknown Medications Current Home Medications Medication Dose Units Route Directions Days Qty Instructions Start Date Acetaminophen 500 Mg/5 Ml Liquid 10 Ml Oral Every 4 Hours as needed for Pain 02/26/16 Esomeprazole Magnesium 20 Mg Capsule.dr 20 Mg Oral Before Breakfast 02/26/16 Fluticasone/Salmeterol (Advair 500-50 Diskus) 1 Disk W/Dev Disk.w.dev 1 Puff Oral Inhalation Resp.tx Twice A Day 02/26/16 Hydrocodone/Acetaminophen (Dulce 5-325 Tablet) 1 Each Tablet 1 Tab Oral Every 6 Hours as needed for Pain 15 Tablet 02/26/16 Lortab Elixer 10-300 Mg Oral As Needed as needed for Pain Montelukast Sodium 10 Mg Tablet 10 Mg Oral Daily Take 1 tablet, by mouth, one time a day (at bedtime). 02/26/16 Olanzapine 2.5 Mg Tablet 2.5 Mg Oral Bedtime 02/26/16 Ondansetron (Zofran Odt) 4 Mg Tab.rapdis 4 Mg Oral Q8h @ 0100/0900/1700 as needed for Nausea 10 Tablet Orally disintegrating tablet 02/26/16 Paliperidone (Invega) 3 Mg Tab.er.24 3 Mg Oral Daily 02/26/16 Prochlorperazine Maleate (Compazine) 10 Mg Tablet 10 Mg Oral Four Times Daily 30 Tablet 03/13/16 Sucralfate 1 Gm Tablet 1 G Oral Daily 02/26/16 Past Home Medications Medication Directions Ordered Status [id number] M3 (Levetiracetam) 500 Mg Tablet, 500 Mg Oral Twice A Day Discontinued Reynold/Poly/Dexameth Ophth Oint 3 , 04/29/15 Discontinued Sulfamethoxazo1 Each (Sulfamethoxazole-Tmp Ds Tablet) 1 Each Tablet, 1 Tab Oral Twice A Day 04/29/15 Discontinued Social History Social History Problem Response Recorded Date/Time Onset Date Status Hx Substance Use No 03/13/2016 10:32pm Not Applicable Not Applicable Hx Alcohol Use Y OCC 03/13/2016 10:32pm Not Applicable Not Applicable Tobacco Usage none 04/12/2015 1:48pm Not Applicable Not Applicable Query Response Start Date Stop Date Smoking Status Former smoker Hospital Discharge Instructions No hospital discharge instructions. Plan of Care Discharge Date 03/13/16 10:55pm Disposition 01 DISCHARGED HOME, SELF-CARE Condition at Discharge Improved Instructions/Education Provided DI for Abdominal Pain-Adult Prescriptions See Medication Section Referrals OTHER Additional Instructions/Education Compazine 10mg four times daily in addition to ibuprofen up to 800mg and Tylenol up to 1000mg for pain and nausea See your doctor at [facility] or Dr. Salinas as soon as possible. Care Plan and Goals Physician Care Plan Problem: Drug seeking behavior, lying to examiner, and chronic abd pain Goal: Follow up with primary care provider Instructions: Take medications and follow care plan as discussed/written Compazine 10mg four times daily in addition to ibuprofen up to 800mg and Tylenol up to 1000mg for pain and nausea See your doctor at [facility] or Dr. Salinas as soon as possible. Functional Status No functional status results. Allergies, Adverse Reactions, Alerts Allergen Type Severity Reaction Status Last Updated Ciprofloxacin Adverse Reaction Unknown ITCHING Active 02/26/16 Omeprazole Allergy Unknown RASH Active 02/26/16 Immunizations Query Response on File Recorded Date/Time Hx Influenza Vaccination Y fall 201304/28/15 11:25pm Hx Pneumococcal Vaccination Y fall 201204/28/15 11:25pm Hx Influenza Vaccination Y fall 201304/28/15 11:25pm Hx Tetanus Diptheria Y APRIL 2014 04/28/15 11:25pm Influenza Vaccine Hx fall 201403/13/16 10:32pm Vital Signs Acute Vital Signs Vital Response Date/Time Temperature (Fahrenheit) 98.0 deg F (96.8 - 99.1) 03/13/2016 10:55pm Temperature (Calculated Celsius) 36.27049 degrees C (36.0 - 37.3) 03/13/2016 10:55pm Pulse Rate (adult) 79 bpm (60 - 100) 03/13/2016 10:55pm Respiratory Rate 14 breaths/min (10 - 20) 03/13/2016 10:55pm O2 Sat by Pulse Oximetry 98 % (90 - 100) 03/13/2016 10:55pm Blood Pressure 121/72 mm Hg 03/13/2016 10:55pm Height (Feet) 5 feet 03/13/2016 10:19pm Height (Inches) 1.00 inches 03/13/2016 10:19pm Weight (Kilograms) 104.000 kg 03/13/2016 10:19pm Body Mass Index (BMI) 43.0 03/13/2016 10:19pm Results Laboratory Results Test Name Result Units Flags Reference Collection Date/Time Result Date/ Time Comments White Blood Count 6.6 T/MM3 4.5-11.0 02/26/2016 12:51pm 02/26/2016 1: 01pm Red Blood Count 3.95 M/MM3 L 4.00-5.20 02/26/2016 12:51pm 02/26/2016 1: 01pm Hemoglobin 9.8 GM/DL L 12-16 02/26/2016 12:51pm 02/26/2016 1:01pm Hematocrit 32.6 % L 36-46 02/26/2016 12:51pm 02/26/2016 1:01pm Mean Corpuscular Volume 82.5 UM3 80-100 02/26/2016 12:51pm 02/26/2016 1 :01pm Mean Corpuscular Hemoglobin 24.8 UUG L 26-34 02/26/2016 12:51pm 2015 1:01pm Mean Corpuscular Hemoglobin Concent 30.1 GM/DL L 31-37 02/26/2016 12: 51pm 02/26/2016 1:01pm RDW Standard Deviation 55.1 FL H 36.9-50.2 02/26/2016 12:51pm 2015 1:01pm Platelet Count 177 T/MM3 130-400 02/26/2016 12:51pm 02/26/2016 1:01pm Mean Platelet Volume 9.4 UM3 9.4-12.4 02/26/2016 12:51pm 02/26/2016 1: 01pm Neutrophils (%) (Auto) 71.3 % H 33-66 02/26/2016 12:51pm 02/26/2016 1: 01pm Lymphocytes (%) (Auto) 20.9 % L 23-45 02/26/2016 12:51pm 02/26/2016 1: 01pm Monocytes (%) (Auto) 6.7 % 0-9.0 02/26/2016 12:51pm 02/26/2016 1:01pm Eosinophils (%) (Auto) 0.8 % 0-4 02/26/2016 12:51pm 02/26/2016 1:01pm Basophils (%) (Auto) 0.3 % 0-2 02/26/2016 12:51pm 02/26/2016 1:01pm Immature Granulocyte % (Auto) 0.0 % 0.0-0.5 02/26/2016 12:51pm 2015 1:01pm Absolute Neutrophils (auto) 4.7 T/MM3 1.8-7.7 02/26/2016 12:51pm 2015 1:01pm Absolute Lymphocytes (auto) 1.4 T/MM3 1-4.8 02/26/2016 12:51pm 2015 1:01pm Absolute Monocytes (auto) 0.4 T/MM3 0-0.8 02/26/2016 12:51pm 2015 1:01pm Absolute Eosinophils (auto) 0.1 T/MM3 0-0.5 02/26/2016 12:51pm 2015 1:01pm Absolute Basophils (auto) 0.0 T/MM3 0-0.2 02/26/2016 12:51pm 2015 1:01pm Absolute Immature Granulocyte (auto 0.00 T/MM3 0.00-0.03 02/26/2016 12: 51pm 02/26/2016 1:01pm Icterus Index < 2 0-7 02/26/2016 12:51pm 02/26/2016 1:15pm Chemistry Specimen Hemolysis < 15 0-25 02/26/2016 12:51pm 02/26/2016 1:15pm 0-25: Specimen Exhibited No Hemolysis. Turbidity < 20 0-20 02/26/2016 12:51pm 02/26/2016 1:15pm Sodium Level 139 MEQ/L 134-144 02/26/2016 12:51pm 02/26/2016 1:15pm Potassium Level 4.0 MEQ/L 3.6-5 02/26/2016 12:51pm 02/26/2016 1:15pm Chloride Level 108 MEQ/L H 98-107 02/26/2016 12:51pm 02/26/2016 1:15pm Carbon Dioxide Level 27 MEQ/L 22-30 02/26/2016 12:51pm 02/26/2016 1: 15pm Anion Gap 4 MEQ/L L 5-15 02/26/2016 12:51pm 02/26/2016 1:15pm Blood Urea Nitrogen 5.0 MG/DL L 7-17 02/26/2016 12:51pm 02/26/2016 1: 15pm Creatinine 0.6 MG/DL L 0.7-1.2 02/26/2016 12:51pm 02/26/2016 1:15pm BUN/Creatinine Ratio 8 RATIO 6-26 02/26/2016 12:51pm 02/26/2016 1:15pm Glomerular Filtration Rate Calc 121 02/26/2016 12:51pm 02/26/2016 1 :15pm Glucose Level 79 MG/DL 65-110 02/26/2016 12:51pm 02/26/2016 1:15pm Calculated Osmolality 264 MOSM/KG 261-280 02/26/2016 12:51pm 2015 1:15pm Calcium Level 8.9 MG/DL 8.4-10.2 02/26/2016 12:51pm 02/26/2016 1:15pm Total Bilirubin 0.40 MG/DL 0.20-1.30 02/26/2016 12:51pm 02/26/2016 1: 15pm Alkaline Phosphatase 87 U/L 38-126 02/26/2016 12:51pm 02/26/2016 1: 15pm Total Protein 6.7 G/DL 6.3-8.2 02/26/2016 12:51pm 02/26/2016 1:15pm Albumin 3.4 G/DL L 3.5-5.0 02/26/2016 12:51pm 02/26/2016 1:15pm Globulin 3.3 G/DL 2.4-3.6 02/26/2016 12:51pm 02/26/2016 1:15pm Albumin/Globulin Ratio 1.0 RATIO L 1.1-2.2 02/26/2016 12:51pm 2015 1:15pm Aspartate Amino Transf (AST/SGOT) 12 U/L L 14-36 02/26/2016 12:51pm 09/2016 1:15pm Alanine Aminotransferase (ALT/SGPT) 13 U/L 9-52 02/26/2016 12:51pm 09/2016 1:15pm Lipase 41 U/L 23-300 02/26/2016 12:51pm 02/26/2016 1:15pm Urine Collection Type CLEANCATCH-MIDSTREAM 02/26/2016 11:am 02/25 12:16pm Urine Color YELLOW YELLOW 02/26/2016 11:02/26/2016 12:16pm Urine Turbidity CLEAR CLEAR 02/26/2016 11:02/26/2016 12:16pm Urine Specific [place] <=1.005 L 1.015-1.025 02/26/2016 11:232015 12:16pm Urine pH 6.5 5.0-8.0 02/26/2016 11:02/26/2016 12:16pm Urine Leukocyte Esterase TRACE A NEGATIVE 02/26/2016 11:2015 12:16pm Urine Nitrite NEGATIVE NEGATIVE 02/26/2016 11:02/26/2016 12: 16pm Urine Protein NEGATIVE NEGATIVE 02/26/2016 11:2302/26/2016 12: 16pm Urine Glucose (UA) NEGATIVE NEGATIVE 02/26/2016 11:23am 02/26/2016 12 :16pm Urine Ketones NEGATIVE NEGATIVE 02/26/2016 11:23am 02/26/2016 12: 16pm Urine Urobilinogen 0.2 EU/DL NORMAL 02/26/2016 11:23am 02/26/2016 12: 16pm Urine Bilirubin NEGATIVE NEGATIVE 02/26/2016 11:23am 02/26/2016 12: 16pm Urine Blood TRACE-INTACT A NEGATIVE 02/26/2016 11:23am 02/26/2016 12: 16pm Urinalysis Comment MICROSCOPIC NOT IND. 02/26/2016 11:23am 2015 12:16pm Procedures Procedure Status Date Provider(s) EMERGENCY DEPT VISIT Completed 12/26/15 ECHO EXAM OF ABDOMEN Completed 02/26/16 COMPREHEN METABOLIC PANEL Completed 02/26/16 URINALYSIS AUTO W/O SCOPE Completed 02/26/16 URINE TEST Completed 02/26/16 ASSAY OF LIPASE Completed 02/26/16 COMPLETE CBC W/AUTO DIFF WBC Completed 02/26/16 THER/PROPH/DIAG INJ IV PUSH Completed 02/26/16 TX/PRO/DX INJ NEW DRUG ADDON Completed 02/26/16 TX/PRO/DX INJ SAME DRUG ENGINE GENERATOR ASSEMBLER Completed 02/26/16 EMERGENCY DEPT VISIT Completed 02/26/16 624223"INJECTION, ONDANSETRON HYDROCHLORIDE, PER 1 MG" Completed 02/26/16 Encounters Encounter Location Arrival/Admit Date Discharge/Depart Date Attending Provider Departed Emergency Room [facility] 03/13/16 10:12pm 03/13/16 10: 55pm INO GARRISON MD Departed Emergency Room [facility] 02/26/16 10:45am 02/26/16 2: 18pm JODI RICHARDSON MD Departed Emergency Room [facility] 12/26/15 9:55pm 12/26/15 11: 05pm INO GARRISON MD Recent Diagnosis
--- OUTSIDE RECORDS SUMMARY | 2017-01-20 22:01 | XMS REPORT | Referral Summary ---
Author Author [facility] Organization [facility] Address Unknown Phone Unavailable Care Team Providers Care Funeral Greeter Name Role Phone [facility] Primary Care Physician Unavailable Encounter [facility] [id number] Date(s): 02/22/16 - 02/22/16 [facility] [address] [place] [address] us Discharge Diagnosis: Foot pain, left Discharge Disposition: 01-Home or Self Care Attending Physician: Provider, Immediate Care Admitting Physician: Provider, Immediate Care Vital Signs Most recent to 1 oldest [Reference Range]: Temperature Oral 36.4 degC [35.8-37.3 degC] (02/22/16 8:55 AM) Peripheral Pulse 100 bpm Rate [60-100 bpm] (02/22/16 8:55 AM) Respiratory Rate 18 br/min [14-20 br/min] (02/22/16 8:55 AM) Blood Pressure 125/92 mmHg [90-140/60-90 mmHg] (02/22/16 8:55 AM) SpO2 98 % (02/22/16 8:55 AM) Problem List Condition Effective Dates Status [...] HOURS APART, # 1 unknown unit, eRx: [facility] [id number], INHALE 1 PUFF BY INHALATION ROUTE 2 TIMES EVERY DAY IN THE MORNING AND EV... Start Date: 02/25/15 Status: Ordered Carafate 1 g/10 mL oral suspension 10 mL, Oral, QIDACHS, # 280 mL, 0 Refill(s), Pharmacy: [facility], 10 mL Oral QIDACHS Start Date: 02/15/16 Status: Ordered cetirizine 10 mg oral tablet 10 mg 1 tabs, Oral, Daily, # 30 tabs, 5 Refill(s), Pharmacy: [facility] [id number], 1 tabs Oral Daily Start Date: 09/01/15 [...] 0 Refill(s) Start Date: 12/12/15 Status: Ordered Weldon 5 mg-325 mg oral tablet 1 tabs, Oral, q6hr, as needed for pain, X 2 days, # 8 tabs, 0 Refill(s) Start Date: 02/22/16 Stop Date: 02/24/16 Status: Ordered olopatadine 0.1% ophthalmic solution See Instructions, 1 drop to affected eye daily prn, # 5 mL, 5 Refill(s), Pharmacy: [facility] Start Date: 02/02/16 Status: Ordered Pepcid 20 mg oral tablet 20 mg 1 tabs, Oral, BID, # 60 tabs, 0 Refill(s) Start Date: 09/14/15 Status: Ordered ProAir HFA 90 mcg/inh inhalation aerosol See Instructions, 2-4 puffs every 4-6 hrs prn., # 1 Each, 1 Refill(s), Pharmacy : [facility] [id number] Start Date: 06/11/15 Status: Ordered Singulair qPM, [...] combined right and left heart Tonsillectomy Tympanostomy [place] tooth 1auto-populated from documented surgical case 2auto-populated from documented surgical case 3auto-populated from documented surgical case 4auto-populated from documented surgical case Social History Social History Type Response Smoking Status Former smoker; Type: Cigarettes; Tobacco use per day: 1 Pack ; Concerns about tobacco use in household: No1, 2 1pt quit smoking 1 month ago 2quit 05/2015 Assessment and Plan Extracted from: Title: Office Visit Note Author: Joby Lin MD Date: 02/22/16 Assessment/Plan Foot pain, left The patient was given a prescription for Weldon 5/325 take 1 po qd for 2 days. She is to follow-up with her PCP if not improving. Ordered: Office Visit Level 3 Est 99632 XR Ankle Complete Left XR Foot Complete Left Orders: HYDROcodone-acetaminophen, 1 tabs, Oral, q6hr, as needed for pain, X 2 days, # 8 tabs, 0 Refill(s)
--- OUTSIDE RECORDS SUMMARY | 2017-01-20 22:01 | XMS REPORT | Referral Summary ---
Author Author [facility] Organization [facility] Address Unknown Phone Unavailable Care Team Providers Care Hand Baseball Sewer Name Role Phone Imelda Martin Primary Care Physician [phone] Encounter [facility] Date(s): 02/28/15 - 02/28/15 [facility] [address] [place] [place] [address] Final: COUGH Final: TOBACCO USE DISORDER Discharge Diagnosis: Cough Discharge Diagnosis: Second hand tobacco smoke exposure Discharge Disposition: 01-Home or Self Care Attending Physician: Maia Strong MD Admitting Physician: Maia Strong MD Vital Signs Most recent to 1 oldest [Reference Range]: Temperature Oral 37.1 degC [35.8-37.3 degC] (02/28/15 9:11 PM) Peripheral Pulse 109 bpm Rate [60-100 bpm] *HI* (02/28/15 9:11 PM) Heart Rate Monitored 105 bpm [60-100 bpm] *HI* (02/28/15 11:42 PM) Respiratory Rate 16 br/min [14-20 br/min] (02/28/15 11:42 PM) Blood Pressure 105/76 mmHg [90-140/60-90 mmHg] (02/28/15 11:42 PM) SpO2 96 % (02/28/15 11:42 PM) Problem List Condition Effective Dates Status [...] pain, # 300 mL, 0 Refill(s), Pharmacy: [facility] [id number], 10 mL Oral q6hr,PRN:as needed for pain Start Date: 12/24/14 Status: Ordered Advair Diskus 250 mcg-50 mcg inhalation powder See Instructions, INHALE 1 PUFF BY INHALATION ROUTE 2 TIMES EVERY DAY IN THE MORNING AND EVENING APPROXIMATELY 12 HOURS APART, # 1 unknown unit, eRx: [facility] [id number], INHALE 1 PUFF BY INHALATION ROUTE 2 TIMES EVERY DAY IN THE MORNING AND EV... Start Date: 02/25/15 Status: Ordered albuterol 2.5 mg/3 mL (0.083%) inhalation solution 3 mL, Inhalation, q6hr (scheduled), # 60 Each, 1 Refill(s), Pharmacy: [facility] [id number], 3 mL Inhalation q6hr (scheduled) Start Date: 02/13/15 Status: Ordered Atrovent 42 mcg/inh nasal spray 2 sprays, Nasal, TID, # 2 Each, 5 Refill(s), Pharmacy: [facility] [id number] Start Date: 06/11/15 Stop Date: 06/11/16 Status: Ordered Carafate 1 g oral tablet 1 g 1 tabs, Oral, QID, Dissolve in water and drink, # 40 tabs, 0 Refill(s) Start Date: 08/31/15 Status: Ordered cetirizine 10 mg oral tablet 10 mg 1 tabs, Oral, Daily, # 30 tabs, 5 Refill(s), Pharmacy: [facility] [id number], 1 tabs Oral Daily Start Date: 09/01/15 Status: Ordered levETIRAcetam 500 mg oral tablet See Instructions, TAKE 3 TABLETS BY MOUTH TWICE DAILY, # 180 tabs, 12 Refill(s) , eRx: [facility] [id number], TAKE 3 TABLETS BY MOUTH TWICE DAILY Start Date: 02/27/15 Status: Ordered Linzess 290 mcg oral capsule 1 caps, Oral, Daily, # 30 caps, 6 Refill(s), [id number], 1 caps Oral Daily Start Date: 02/24/15 Status: Ordered loratadine 10 mg oral tablet 10 mg, Oral, Daily, # 30 tabs, 5 Refill(s), Pharmacy: [facility] [id number] , 10 mg Oral Daily Start Date: [...] # 1 Each, 1 Refill(s), Pharmacy : [facility] [address] Start Date: 06/11/15 Status: Ordered traZODone Oral, [...] combined right and left heart Tonsillectomy Tympanostomy [place] tooth 1auto-populated from documented surgical case 2auto-populated from documented surgical case Social History Social History Type Response Smoking Status Former smoker; Type: Cigarettes; Tobacco use per day: 1 Pack1 1quit 05/2015 Assessment and Plan No data available for this section
--- OUTSIDE RECORDS SUMMARY | 2017-01-20 22:02 | XMS REPORT | Referral Summary ---
Author Author [facility] Organization [facility] Address Unknown Phone Unavailable Care Team Providers Care Pre Sales Technical Engineer Name Role Phone Imelda Martin Primary Care Physician [phone] Encounter [facility] [id number] Date(s): 10/07/16 - 10/07/16 [facility] [address] [place] [address] Discharge Diagnosis: Nausea Discharge Diagnosis: Chronic abdominal pain Discharge Disposition: 01-Home or Self Care Attending Physician: Vance Lei MD Admitting Physician: Vance Lei MD Vital Signs Most recent to 1 oldest [Reference Range]: Temperature Oral 36.4 degC [35.8-37.3 degC] (10/07/16 6:02 PM) Peripheral Pulse 89 bpm Rate [60-100 bpm] (10/07/16 6:02 PM) Respiratory Rate 18 br/min [14-20 br/min] (10/07/16 6:02 PM) Blood Pressure 108/69 mmHg [90-140/60-90 mmHg] (10/07/16 6:02 PM) SpO2 99 % (10/07/16 6:02 PM) Problem List Condition Effective Dates Status [...] QIDACHS, # 280 mL, 0 Refill(s), Pharmacy: [facility], 10 mL Oral QIDACHS Start Date: 02/15/16 Status: Ordered Claritin 10 mg, Oral, Daily, 0 Refill(s) Start Date: 01/23/16 Status: Ordered ibuprofen 600 mg oral tablet 600 mg 1 tabs, Oral, q6hr, # 40 tabs, 0 Refill(s) Start Date: 10/01/16 Status: Ordered Keppra 500 mg oral tablet 500 mg 1 tabs, Oral, BID, # 60 tabs, 0 Refill(s), Pharmacy: [facility] [id number], 1 tabs Oral BID Start Date: 07/12/16 [...] to 1 oldest [Reference Range]: Sodium Venous 138 mEq/L [136-144 mEq/L] (10/07/16 6:27 PM) Potassium Venous 3.9 mEq/L 1 [3.6-5.1 mEq/L] (10/07/16 6:27 PM) Calcium Ionized 0.93 mmol/L Venous [1.19-1.41 *LOW* mmol/L] (10/07/16 6:27 PM) Total CO2 Venous 22 mEq/L [25-29 mEq/L] *LOW* (10/07/16 6:27 PM) HGB Venous NPT 12.6 gm/dL [12.0-16.0 gm/dL] (10/07/16 6:27 PM) HCT Venous 37.0 % [37.0-47.0 %] (10/07/16 6:27 PM) Glucose Venous 96 mg/dL [70-100 mg/dL] (10/07/16 6:27 PM) BUN Venous [4-20] 6 (10/07/16 6:27 PM) Creatinine Venous 0.5 mg/dL [0.4-1.0 mg/dL] (10/07/16 6:27 PM) Venous CL [99-109 110 mEq/L mEq/L] *HI* (10/07/16 6:27 PM) Anion Gap, Darron 6 [3-20] (10/07/16 6:27 PM) Screen, Negative Urine NPT (10/07/16 7:08 PM) 1Result Comment: This test was performed on a whole blood specimen. The presence or absence of hemolysis cannot be assessed. Hemolysis can falsely elevate potassium levels. Normals are for venous specimens only. Urinalysis Most recent to 1 oldest [Reference Range]: UA Color Yellow (10/07/16 7:03 PM) UA Appear Sl Cloudy (10/07/16 7:03 PM) UA pH [5.0-8.0] 7.0 (10/07/16 7:03 PM) UA Leuk Est Trace [Negative] *ABN* (10/07/16 7:03 PM) UA Nitrite Negative [Negative] (10/07/16 7:03 PM) UA Protein Negative [Negative] (10/07/16 7:03 PM) UA Glucose Negative [Negative] (10/07/16 7:03 PM) UA Ketones Negative [Negative] (10/07/16 7:03 PM) UA Urobilinogen Negative [<1.0] (10/07/16 7:03 PM) UA Bili [Negative] Negative (10/07/16 7:03 PM) UA Blood [Negative] Negative (10/07/16 7:03 PM) UA Spec Grav 1.020 [1.003-1.030] (10/07/16 7:03 PM) Type Clean Catch (10/07/16 7:03 PM) UA WBC [0-4] 2-5 (10/07/16 7:03 PM) UA RBC [0-2] 0-2 (10/07/16 7:03 PM) Epithelial Cells 2-5 (10/07/16 7:03 PM) UA Bacteria Numerous *ABN* (10/07/16 7:03 PM) Crystals Amorphous (10/07/16 7:03 PM) UA Hyal Cast [0-3] 1-3 (10/07/16 7:03 PM) UA Mucous Present (10/07/16 7:03 PM) Immunizations Given and Recorded Vaccine Date Status Refusal Reason pneumococcal 23-polyvalent vaccine 11/18/14 Given Procedures Procedure Date Related Diagnosis Body Site Esophagogastroduodenoscopy - SN1 06/04/16 Esophagogastroduodenoscopy Foreign Body 01/06/16 Removal2 Procedure with Anesthesia3 01/06/16 Esophagogastroduodenoscopy Balloon Dilat4 02/14/15 Examination Under Anesthesia5 02/14/15 Adenoidectomy Bilateral tubal ligation Bronchoscope Cardiac catheterization, combined right and left heart Tonsillectomy Tympanostomy [place] tooth 1auto-populated from documented surgical case 2auto-populated from documented surgical case 3auto-populated from documented surgical case 4auto-populated from documented surgical case 5auto-populated from documented surgical case Social History Social History Type Response Smoking Status Never smoker Assessment and Plan No data available for this section
--- OUTSIDE RECORDS SUMMARY | 2017-01-20 22:02 | XMS REPORT | Referral Summary ---
Author Organization Unknown Address Unknown Phone Unavailable Care Team Providers Care Data Modeling Architect Name Role Phone Pardeep Poole Primary Care Physician [phone] Encounter VC Date(s): 11/08/14 - 11/09/[address] [place] [address] Discharge Diagnosis: Chronic abdominal pain Discharge Disposition: Home or Self Care Attending Physician: Eduin June MD Admitting Physician: Eduin June MD Vital Signs Most recent to 1 oldest [Reference Range]: Temperature Oral 36.7 degC [35.8-37.3 degC] (11/08/14 11:35 PM) Peripheral Pulse 86 bpm Rate [60-100 bpm] (11/09/14 1:35 AM) Respiratory Rate 20 br/min [14-20 br/min] (11/09/14 1:35 AM) Systolic Blood 110 mmHg Pressure [90-140 (11/09/14 1:35 AM) mmHg] Diastolic Blood 87 mmHg Pressure [60-90 (11/09/14 1:35 AM) mmHg] Most recent to 1 oldest [Reference Range]: SpO2 98 % (11/09/14 1:35 AM) Problem List Condition Effective Dates Status Health Status Informant Acid Active patient reflux(Confirmed) Acute gastritis Active without mention of hemorrhage(Confirmed ) Acute Active pain(Confirmed) ADD(Confirmed) Active Allergic rhinitis, Active cause unspecified(Confirme d) Anemia(Confirmed) Active Anxiety state Active (finding)(Confirmed) Asthma without Active status asthmaticus (disorder)(Confirmed ) At risk for Active infection(Confirmed) 1 Bronchitis(Confirmed Active ) Chest Active pain(Confirmed) Depressive disorder, Active not elsewhere classified(Confirmed ) Depressive type Active psychosis(Confirmed) Headache(Confirmed) Active Heart Active murmur(Confirmed) Hiatal Active hernia(Confirmed) Morbid Active patient obesity(Confirmed) L CN 10/30/13 Active Palsy(Confirmed) Seizure Active disorder(Confirmed) 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 Medications Advair Diskus 250 mcg-50 mcg inhalation powder 1 puffs, Inhalation, BID, 0 Refill(s) Start Date: 03/29/14 Status: Ordered albuterol 2.5 mg/3 mL (0.083%) inhalation solution See Instructions, 1 vial every 4-6 hrs prn., 0 Refill(s) Special Instructions: 1 vial every 4-6 hrs prn. Start Date: 09/30/14 Status: Ordered Carafate 1 g oral tablet 1 tabs, Oral, QID, # 30 tabs, 0 Refill(s) Start Date: 11/09/14 Status: Ordered Carafate 1 g/10 mL oral suspension 10 mL, Oral, QIDACHS, # 1,200 mL, 6 Refill(s), Pharmacy: [id number], 10 mL Oral QIDACHS Start Date: 10/07/14 Status: Ordered Flonase 50 mcg/inh nasal spray 1 sprays, Nasal, BID, # 16 g, 5 Refill(s), Pharmacy: [id number] Start Date: 09/30/14 Status: Ordered FLUoxetine 60 mg oral tablet 1 tabs, Oral, Daily, # 30 tabs, 0 Refill(s) Start Date: 11/06/14 Status: Ordered Latuda 60 mg, Oral, Daily, 0 Refill(s) Start Date: 03/29/14 Status: Ordered levETIRAcetam 500 mg oral tablet See Instructions, TAKE 3 TABLETS BY MOUTH TWICE DAILY, # 180 tabs, 2 Refill(s), TRAN, eRx: [facility] [id number], TAKE 3 TABLETS BY MOUTH TWICE DAILY Special Instructions: TAKE 3 TABLETS BY MOUTH TWICE DAILY Start Date: 11/01/14 Status: Ordered loratadine 10 mg, Oral, Daily, 0 Refill(s) Start Date: 10/26/14 Status: Ordered NexIUM 40 mg oral delayed release capsule 1 caps, Oral, Daily, # 30 caps, 5 Refill(s), Pharmacy: [facility] [id number], 1 caps Oral Daily Start Date: 07/19/14 Status: Ordered [place] 5 mg-325 mg oral tablet 1 tabs, Oral, q6hr, as needed for pain, # 8 tabs, 0 Refill(s) Start Date: 11/09/14 Stop Date: 11/16/14 Status: Ordered ProAir HFA 90 mcg/inh inhalation aerosol See Instructions, 2-4 puffs every 4-6 hrs prn., # 1 Each, 1 Refill(s), Pharmacy : [facility] [id number] Special Instructions: 2-4 puffs every 4-6 hrs prn. Start Date: 09/30/14 Status: Ordered promethazine 25 mg oral tablet 1 tabs, Oral, q8hr, Nausea, # 15 tabs, 0 Refill(s) Start Date: 11/09/14 Stop Date: 11/16/14 Status: Ordered Remeron 60 mg, Oral, Bedtime (once a day), 0 Refill(s) Start Date: 09/19/14 Status: Ordered Vimpat 100 mg oral tablet 1 tabs, Oral, BID, # 60 tabs, 2 Refill(s) Start Date: 10/08/14 Status: Ordered Vitamin D3 0 Refill(s) Start Date: 10/26/14 Status: Ordered Zofran 4 mg oral tablet 1 tabs, Oral, q6hr, Nausea, # 12 tabs, 0 Refill(s) Start Date: 11/09/14 Stop Date: 11/16/14 Status: Ordered Results No data available for this section Immunizations No data available for this section Procedures Procedure Date Related Diagnosis Body Site Adenoidectomy Bilateral tubal ligation Bronchoscope Tonsillectomy Tympanostomy [place] tooth Social History Social History Type Response Smoking Status Current every day smoker; Type: Cigarettes; Tobacco use per day: 1-2 cigarettes a day Assessment and Plan No data available for this section
--- OUTSIDE RECORDS SUMMARY | 2017-01-20 22:02 | XMS REPORT | Referral Summary ---
Author Author [facility] Organization [facility] Address Unknown Phone Unavailable Care Team Providers Care Journeyman Pipe Welder Name Role Phone [facility] Primary Care Physician Unavailable Encounter VC TEJADA [id number] Date(s): 02/23/16 - 02/23/[address] [facility] [address] [place], [place] [address] Discharge Diagnosis: Acute costochondritis Discharge Disposition: 01-Home or Self Care Attending Physician: Jefferson Barbosa DO Admitting Physician: Jefferson Barbosa DO Vital Signs Most recent to 1 oldest [Reference Range]: Temperature Oral 36.6 degC [35.8-37.3 degC] (02/23/16 8:35 PM) Peripheral Pulse 102 bpm Rate [60-100 bpm] *HI* (02/23/16 9:51 PM) Respiratory Rate 18 br/min [14-20 br/min] (02/23/16 9:51 PM) Blood Pressure 116/90 mmHg [90-140/60-90 mmHg] (02/23/16 9:51 PM) SpO2 99 % (02/23/16 9:51 PM) Problem List Condition Effective Dates Status [...] HOURS APART, # 1 unknown unit, eRx: [facility] [id number], INHALE 1 PUFF BY INHALATION ROUTE 2 TIMES EVERY DAY IN THE MORNING AND EV... Start Date: 02/25/15 Status: Ordered Carafate 1 g/10 mL oral suspension 10 mL, Oral, QIDACHS, # 280 mL, 0 Refill(s), Pharmacy: [facility], 10 mL Oral QIDACHS Start Date: 02/15/16 Status: Ordered cetirizine 10 mg oral tablet 10 mg 1 tabs, Oral, Daily, # 30 tabs, 5 Refill(s), Pharmacy: [facility] [id number], 1 tabs Oral Daily Start Date: 09/01/15 [...] 0 Refill(s) Start Date: 12/12/15 Status: Ordered [place] 5 mg-325 mg oral tablet 1 tabs, Oral, q6hr, as needed for pain, X 2 days, # 8 tabs, 0 Refill(s) Start Date: 02/22/16 Stop Date: 02/24/16 Status: Ordered [place] 5 mg-325 mg oral tablet 1 tabs, Oral, q6hr, as needed for pain, # 15 tabs, 0 Refill(s) Start Date: 02/23/16 Stop Date: 02/24/16 Status: Ordered olopatadine 0.1% ophthalmic solution See Instructions, 1 drop to affected eye daily prn, # 5 mL, 5 Refill(s), Pharmacy: [facility] Start Date: 02/02/16 Status: Ordered Pepcid 20 mg oral tablet 20 mg 1 tabs, Oral, BID, # 60 tabs, 0 Refill(s) Start Date: 09/14/15 Status: Ordered ProAir HFA 90 mcg/inh inhalation aerosol See Instructions, 2-4 puffs every 4-6 hrs prn., # 1 Each, 1 Refill(s), Pharmacy : [facility] [id number] Start Date: 06/11/15 Status: Ordered Singulair qPM, [...] combined right and left heart Tonsillectomy Tympanostomy [place] tooth 1auto-populated from documented surgical case 2auto-populated [...]
--- OUTSIDE RECORDS SUMMARY | 2017-01-20 22:02 | XMS REPORT | Referral Summary ---
Author Author [facility] Organization [facility] Address Unknown Phone Unavailable Care Team Providers Care Life Coach Name Role Phone Nisha Colindres Primary Care Physician [phone] Encounter VC TERRELL [id number] Date(s): 11/27/16 - 11/27/16 [facility] [address] [place] [address] [phone] Discharge Diagnosis: Dog bite of right hand Discharge Diagnosis: Hand pain, right Discharge Disposition: 01-Home or Self Care Attending Physician: Vance Lei MD Admitting Physician: Vance Lei MD Vital Signs Most recent to 1 oldest [Reference Range]: Temperature Oral 36.7 degC [35.8-37.3 degC] (11/27/16 2:37 PM) Peripheral Pulse 108 bpm Rate [60-100 bpm] *HI* (11/27/16 2:37 PM) Respiratory Rate 22 br/min [14-20 br/min] *HI* (11/27/16 2:37 PM) Blood Pressure 127/75 mmHg [90-140/60-90 mmHg] (11/27/16 2:37 PM) SpO2 100 % (11/27/16 2:37 PM) Problem List Condition Effective Dates Status [...] omeprazole Turns red Medium Active Rash PriLOSEC Active PriLOSEC OTC1 Rash Medium Active 1pt states she gets a rash from the medication. Medications acetaminophen 500 mg oral tablet 1,000 mg 2 tabs, Oral, q4hr, as needed for fever, # 24 tabs, 0 Refill(s) Start Date: 11/26/16 Stop Date: 11/26/17 Status: Ordered acetaminophen 500 mg oral tablet 500 mg 1 tabs, Oral, q4hr, as needed for pain, # 24 tabs, 0 Refill(s) Start Date: 10/03/16 Stop Date: 10/03/17 Status: Ordered Advair Diskus 500 mcg-50 mcg inhalation powder 1 puffs, Inhalation, BID, 0 Refill(s) Start Date: 06/04/16 Status: Ordered Augmentin 875 mg-125 mg oral tablet 1 tabs, Oral, q12hr, X 7 days, # 14 tabs, 0 Refill(s) Start Date: 11/27/16 Stop Date: 12/04/16 Status: Ordered cetirizine 10 mg oral tablet 10 mg 1 tabs, Oral, Daily, # 30 tabs, 6 Refill(s), Pharmacy: [id number], 1 tabs Oral Daily Start Date: 11/12/16 Status: Ordered Keppra 500 mg oral tablet 500 mg 1 tabs, Oral, BID, # 60 tabs, 0 Refill(s) Start Date: 04/21/16 Stop Date: 05/21/16 Status: Ordered Levsin SL 0.125 mg sublingual tablet 0.125 mg 1 tabs, SubLingual, q4hr, # 12 tabs, 0 Refill(s) Start Date: 10/18/16 Status: Ordered ProAir HFA 90 mcg/inh inhalation aerosol 2 puffs, Inhalation, QID, as needed for wheezing, 0 Refill(s) Start Date: 06/04/16 Status: Ordered Results No data available for this section Immunizations Given and Recorded Vaccine Date Status Refusal Reason pneumococcal 23-polyvalent vaccine 11/18/14 Given rabies vaccine, human diploid cell1 11/27/16 Given 1Early/Late Reason: Other : waiting for dose of immuneglob to be given Procedures Procedure Date Related Diagnosis Body Site Esophagogastroduodenoscopy - SN1 06/04/16 Esophagogastroduodenoscopy Foreign Body 01/06/16 Removal2 Procedure with Anesthesia3 01/06/16 Esophagogastroduodenoscopy Balloon Dilat4 02/14/15 Examination Under Anesthesia5 02/14/15 Adenoidectomy Bilateral tubal ligation Bronchoscope Cardiac catheterization, combined right and left heart Tonsillectomy Tympanostomy [place] tooth 1auto-populated from documented surgical case 2auto-populated from documented surgical case 3auto-populated from documented surgical case 4auto-populated from documented surgical case 5auto-populated from documented surgical case Social History Social History Type Response Smoking Status Current every day smoker; Type: Cigarettes; Tobacco use per day: 1 Pack Assessment and Plan No data available for this section
--- OUTSIDE RECORDS SUMMARY | 2017-01-20 22:02 | XMS REPORT | Referral Summary ---
Author Author [facility] Organization [facility] Address Unknown Phone Unavailable Care Team Providers Care Healthcare Social Worker Name Role Phone [place] [facility] Primary Care Physician Unavailable Encounter VC TEJADA [id number] Date(s): 03/12/16 - 03/12/16 [facility] [address] [place] [address] Discharge Diagnosis: Rectal bleeding Discharge Disposition: 01-Home or Self Care Attending Physician: Moses Kay JR, MD Admitting Physician: Moses Kay JR, MD Referring Physician: Self Referred, X Vital Signs Most recent to 1 oldest [Reference Range]: Temperature Oral 36.7 degC [35.8-37.3 degC] (03/12/16 9:05 PM) Peripheral Pulse 80 bpm Rate [60-100 bpm] (03/12/16 10:49 PM) Respiratory Rate 18 br/min [14-20 br/min] (03/12/16 10:49 PM) Blood Pressure 110/56 mmHg [90-140/60-90 mmHg] (03/12/16 10:49 PM) SpO2 98 % (03/12/16 10:49 PM) Problem List Condition Effective Dates Status [...] HOURS APART, # 1 unknown unit, eRx: [facility] [id number], INHALE 1 PUFF BY INHALATION ROUTE 2 TIMES EVERY DAY IN THE MORNING AND EV... Start Date: 02/25/15 Status: Ordered Carafate 1 g/10 mL oral suspension 10 mL, Oral, QIDACHS, # 280 mL, 0 Refill(s), Pharmacy: [facility], 10 mL Oral QIDACHS Start Date: 02/15/16 Status: Ordered cetirizine 10 mg oral tablet 10 mg 1 tabs, Oral, Daily, # 30 tabs, 5 Refill(s), Pharmacy: [facility] [id number], 1 tabs Oral Daily Start Date: 09/01/15 [...] 1 Refill(s), Pharmacy : [facility] [id number] Start Date: 06/11/15 Status: Ordered promethazine 25 mg oral tablet 25 mg 1 tabs, Oral, q4hr, Nausea or Vomiting, # 12 tabs, 0 Refill(s) Start Date: 03/07/16 Status: Ordered Singulair qPM, 0 Refill(s) Start Date: 01/23/16 Status: Ordered Vitamin D3 1,000 Intl_Units, Oral, Daily, 0 Refill(s) Start Date: 10/26/14 Status: Ordered Results Hematology Most recent to 1 oldest [Reference Range]: WBC [4.8-10.8 4.6 10*3/uL 10*3/uL] *LOW* (03/12/16 10:22 PM) RBC [4.00-5.20] 4.22 (03/12/16 10:22 PM) Hgb [12.0-16.0 10.3 gm/dL gm/dL] *LOW* (03/12/16 10:22 PM) Hct [37.0-47.0 %] 33.4 % *LOW* (03/12/16 10:22 PM) MCV [82.0-99.0 fL] 79.1 fL *LOW* (03/12/16 10:22 PM) MCH [27.0-32.0 pg] 24.4 pg *LOW* (03/12/16 10:22 PM) MCHC [32.0-36.0 30.8 gm/dL gm/dL] *LOW* (03/12/16 10:22 PM) RDW [11.5-14.5 %] 17.8 % *HI* (03/12/16 10:22 PM) Platelet [150-400 196 10*3/uL 10*3/uL] (03/12/16 10:22 PM) MPV [9.4-12.4 fL] 9.9 fL (03/12/16 10:22 PM) Immature 0.2 % Granulocytes (03/12/16 10:22 PM) [0.0-1.0 %] Neutrophils [51-75 62 % %] (03/12/16 10:22 PM) Lymphocytes [20-46 26 % %] (03/12/16 10:22 PM) Monocytes [4-11 %] 12 % *HI* (03/12/16 10:22 PM) Eosinophils [0-4 %] 1 % (03/12/16 10:22 PM) Basophils [0-2 %] 0 % (03/12/16 10:22 PM) Neutro Absolute 2.85 10*3 [1.90-7.00 10*3] (03/12/16 10:22 PM) Lymph Absolute 1.19 10*3 [0.80-3.30 10*3] (03/12/16 10:22 PM) [place] Absolute 0.54 10*3 [0.30-1.00 10*3] (03/12/16 10:22 PM) Eos Absolute 0.03 10*3 [0.00-0.50 10*3] (03/12/16 10:22 PM) Baso Absolute 0.02 10*3 [0.00-0.20 10*3] (03/12/16 10:22 PM) Chemistry Most recent to 1 oldest [Reference Range]: Occult Blood, Stool Positive NPT [Negative] *ABN* (03/12/16 10:26 PM) Immunizations Vaccine Date Refusal Reason pneumococcal 23-polyvalent vaccine 11/18/14 Procedures Procedure Date Related Diagnosis Body Site Esophagogastroduodenoscopy Foreign Body 01/06/16 Removal1 Procedure with Anesthesia2 01/06/16 Esophagogastroduodenoscopy Balloon Dilat3 02/14/15 Examination Under Anesthesia4 02/14/15 Adenoidectomy Bilateral tubal ligation Bronchoscope Cardiac catheterization, combined right and left heart Tonsillectomy Tympanostomy [place] tooth 1auto-populated from documented surgical case 2auto-populated [...]
--- OUTSIDE RECORDS SUMMARY | 2017-01-20 22:02 | XMS REPORT | Referral Summary ---
Author Author [facility] Organization [facility] Address Unknown Phone Unavailable Care Team Providers Care Changeover Operator Name Role Phone Imelda Martin Primary Care Physician [phone] Encounter VC Date(s): 03/21/15 - 03/21/15 [facility] [address] [place], [place] [address] Final: DIAPHRAGMATIC HERNIA WITHOUT MENTION OF OBSTRUCTION OR GANGRENE Final: ESOPHAGEAL REFLUX Discharge Disposition: 01-Home or Self Care Attending Physician: Mandeep Ureña MD Vital Signs No data available for [...] pain, # 300 mL, 0 Refill(s), Pharmacy: [id number], 10 mL Oral q6hr,PRN:as needed for pain Start Date: 12/24/14 Status: Ordered Advair Diskus 250 mcg-50 mcg inhalation powder See Instructions, INHALE 1 PUFF BY INHALATION ROUTE 2 TIMES EVERY DAY IN THE MORNING AND EVENING APPROXIMATELY 12 HOURS APART, # 1 unknown unit, eRx: [facility] [id number], INHALE 1 PUFF BY INHALATION ROUTE 2 TIMES EVERY DAY IN THE MORNING AND EV... Start Date: 02/25/15 Status: Ordered albuterol 2.5 mg/3 mL (0.083%) inhalation solution 3 mL, Inhalation, q6hr (scheduled), # 60 Each, 1 Refill(s), Pharmacy: [facility] [id number], 3 mL Inhalation q6hr (scheduled) Start Date: 02/13/15 Status: Ordered Atrovent 42 mcg/inh nasal spray 2 sprays, Nasal, TID, # 2 Each, 5 Refill(s), Pharmacy: [facility] [id number] Start Date: 06/11/15 Stop Date: 06/11/16 Status: Ordered Carafate 1 g oral tablet 1 g 1 tabs, Oral, QID, Dissolve in water and drink, # 40 tabs, 0 Refill(s) Start Date: 08/31/15 Status: Ordered cetirizine 10 mg oral tablet 10 mg 1 tabs, Oral, Daily, # 30 tabs, 5 Refill(s), Pharmacy: [facility] [id number], 1 tabs Oral Daily Start Date: 09/01/15 Status: Ordered levETIRAcetam 500 mg oral tablet See Instructions, TAKE 3 TABLETS BY MOUTH TWICE DAILY, # 180 tabs, 12 Refill(s) , eRx: [facility] [id number], TAKE 3 TABLETS BY MOUTH TWICE DAILY Start Date: 02/27/15 Status: Ordered Linzess 290 mcg oral capsule 1 caps, Oral, Daily, # 30 caps, 6 Refill(s), Pharm[facility]: [facility] [address], 1 caps Oral Daily Start Date: 02/24/15 Status: Ordered loratadine 10 mg oral tablet 10 mg, Oral, Daily, # 30 tabs, 5 Refill(s), Pharmacy: [facility] [id number] , 10 mg Oral Daily Start Date: [...] Each, 1 Refill(s), Pharmacy : [facility] [address] Start Date: 06/11/15 Status: Ordered traZODone Oral, [...] combined right and left heart Tonsillectomy Tympanostomy [place] tooth 1auto-populated from documented surgical case 2auto-populated from documented surgical case Social History Social History Type Response Smoking Status Former smoker; Type: Cigarettes; Tobacco use per day: 1 Pack1 1quit 05/2015 Assessment and Plan No data available for this section
--- OUTSIDE RECORDS SUMMARY | 2017-01-20 22:02 | XMS REPORT ---
Author Author GENERATED, SYSTEM Organization Unknown Address Unknown Phone Unavailable Care Team Providers Care Room Service Attendant Name Role Phone UNASSIGNED DOCTOR , DOCTOR PP [phone] Reason For Visit Chief Complaint LEFT ARM SWELLING, ABD PAIN Social History Functional Status Vital Signs Results Chemistry from 04/09/2015 12:02 AMSODIUM 139 MMOL/L (136-145 MMOL/L) POTASSIUM 3.6 MMOL/L (3.5-5.1 MMOL/L) CHLORIDE 106 MMOL/L (98-107 MMOL/L) TCO2 29.0 MMOL/L (21.0-32.0 MMOL/L) ANION GAP 4.0 MMOL/L L (8.0-16.0 MMOL/L) BUN 6 MG/DL L (7-18 MG/DL) CREATININE 0.50 MG/DL (0.43-0.83 MG/DL) BUN/CREATININE RATIO 12.0 (9.1-17.0 ) GLUCOSE 111 MG/DL H (65-99 MG/DL) GFR EST NON AFR MAURITIAN >90 ML/MIN GFRA EST AFR AMER >90 ML/MIN CALCIUM 8.5 MG/DL (8.5-10.1 MG/DL) BILIRUBIN TOTAL 0.27 MG/DL (0.20-1.00 MG/DL) TOTAL PROTEIN 7.4 GM/DL (6.4-8.2 GM/DL) ALBUMIN 2.9 GM/DL L (3.4-5.0 GM/DL) GLOBULIN 4.5 GM/DL H (2.3-3.5 GM/DL) A/G RATIO 0.6 MG/DL L (1.5-2.2 MG/DL) ALK PHOS 105 U/L (46-116 U/L) ALT (SGPT) 22 U/L (16-63 U/L) AST (SGOT) 10 U/L L (15-37 U/L) LIPASE 110 U/L (73-393 U/L) TEST NEGATIVE (NEGATIVE ) Hematology from 04/09/2015 12:02 AMWBC 8.9 X10e3/UL (3.6-11.2 X10e3/UL) RBC 4.25 X10e6/UL (3.63-4.92 X10e6/UL) HEMOGLOBIN 11.5 G/DL (11.0-14.3 G/DL) HEMATOCRIT 35.0 % (31.2-41.9 %) MCV 82.3 FL (79.0-98.0 FL) MCH 27.1 PG (27.0-33.0 PG) MCHC 33.0 G/DL (32.0-36.0 G/DL) RDW 17.5 % H (12.3-17.0 %) RDWSD 51.2 H (37.1-47.8 ) PLATELET 256 X10e3/UL (159-386 X10e3/UL) MPV 7.3 FL L (7.4-10.4 FL) AUTOMATED DIFF PERFORMED SEGS 64.1 % LYMPHOCYTES 28.3 % MONOCYTES 6.3 % EOSINOPHILS 0.8 % BASOPHILS 0.5 % ABSOLUTE NEUTROPHILS 5.70 X10e3/UL (1.80-7.80 X10e3/UL) ABSOLUTE LYMPHOCYTES 2.50 X10e3/UL (1.00-3.00 X10e3/UL) ABSOLUTE MONOCYTES 0.60 X10e3/UL (0.30-1.00 X10e3/UL) ABSOLUTE EOSINOPHILS 0.10 X10e3/UL (0.00-0.50 X10e3/UL) ABSOLUTE BASOPHILS 0.00 X10e3/UL (0.00-0.20 X10e3/UL) Urinalysis from 04/09/2015 12:10 AM* Status: Final Result URINALYSIS Specimen Number: [id number] Sample Collection Date/Time: 04/09/2015 12:10 AM Specimen Source: URINE COLOR DK YELLOW (STRAW/YELL/DK YELL ) URINE APPEARANCE SL CLOUDY A (CLEAR ) URINE PH 6.0 (5.0-8.0 ) URINE SPECIFIC GRAVITY 1.025 (<=1.005->=1.030 ) URINE GLUCOSE NEGATIVE MG/DL (NEGATIVE MG/DL) URINE BILIRUBIN NEGATIVE (NEGATIVE ) URINE KETONES NEGATIVE MG/DL (NEGATIVE MG/DL) URINE BLOOD TRACE-INTACT A (NEGATIVE ) URINE PROTEIN NEGATIVE MG/DL (NEGATIVE MG/DL) URINE UROBILINOGEN 0.2 EU/DL (0.2-1.0 EU/DL) URINE NITRITES NEGATIVE (NEGATIVE ) *URINE LEUKOCYTES TRACE A (NEGATIVE ) MICROSCOPIC EXAM PERFORMED PERFORMED WBC 5-10 /HPF A (0-5 /HPF) RBC 1-5 /HPF A (0-1 /HPF) SQUAMOUS EP. CELLS MANY /LPF A (NEG-FEW /LPF) MUCOUS THREADS MODERATE /LPF A (NEGATIVE /LPF) CT Scan from 04/09/2015 12:07 AMCT ABD/PELVIS W/CONTRAST HISTORY: Abdominal Pain . TECHNIQUE: Post contrast images were performed after the administration of 95 milliliters of Isovue intravenous contrast. PRIORS: None. FINDINGS: ABDOMEN: Lung bases: There is a moderate to large sliding-type hiatal hernia with subjacent atelectasis within the medial lung bases bilaterally. Liver: Normal density. No measurable mass. Gallbladder and biliary tract: No radiodense calculus or dilation. Pancreas: Normal density, no abnormal calcifications or inflammatory process. Spleen: Normal. Kidneys: Normal size, contour and axis. No radiodense stones or obstructive uropathy. No masses seen. Adrenal glands: No masses seen. Aorta: Abdominal portion non-dilated. Bowel: No obstruction or bowel wall thickening. Ascites: None. Retroperitoneal Lymphadenopathy: None. PELVIS: Bladder: Symmetric distention, no gross wall thickening. Appendix: There is a calcified appendicolith which fills approximately half of the appendix. The appendix is not dilated. Bowel: Normal. Ascites: None. Lymphadenopathy: None. Osseous Structures: Unremarkable There is a 4 centimeter cystic lesion within the right ovary which is likely physiologic. There is an additional 1.7 centimeter cyst within the posterior aspect of the right ovary. IMPRESSION: Two right ovarian cysts the larger of which measures 4 centimeters, which are likely physiologic in nature. Moderate to large sliding-type hiatal hernia. Problems Encounter Diagnosis No relevant problems exist. [...]
--- OUTSIDE RECORDS SUMMARY | 2017-01-20 22:02 | XMS REPORT | Referral Summary ---
Author Author [facility] Organization [facility] Address Unknown Phone Unavailable Care Team Providers Care Assistant Mechanic Name Role Phone Imelda Martin Primary Care Physician [phone] Encounter Date(s): 04/05/15 - 04/05/15 [facility] [address] [facility] [place] [address] [phone] Discharge Diagnosis: Acute abdominal pain Final: Other acute pain Final: ABDOMINAL PAIN, OTHER SPECIFIED SITE; MULTIPLE SITES Final: Other chronic pain Final: NAUSEA ALONE Discharge Diagnosis: Chronic abdominal pain Discharge Disposition: 01-Home or Self Care Attending Physician: Jose Daily MD Admitting Physician: Moses Kay JR, MD Referring Physician: Self Referred, X Vital Signs Most recent to 1 oldest [Reference Range]: Temperature Oral 36.7 degC [35.8-37.3 degC] (04/05/15 5:31 PM) Peripheral Pulse 109 bpm Rate [60-100 bpm] *HI* (04/05/15 5:31 PM) Heart Rate Monitored 102 bpm [60-100 bpm] *HI* (04/05/15 6:30 PM) Respiratory Rate 22 br/min [14-20 br/min] *HI* (04/05/15 5:31 PM) Blood Pressure 105/79 mmHg [90-140/60-90 mmHg] (04/05/15 6:30 PM) Mean Arterial 83 mmHg Pressure, Cuff (04/05/15 6:30 PM) SpO2 96 % (04/05/15 6:30 PM) Problem List Condition Effective Dates Status [...] pain, # 300 mL, 0 Refill(s), Pharmacy: [id number], 10 mL Oral q6hr,PRN:as needed for pain Start Date: 12/24/14 Status: Ordered Advair Diskus 250 mcg-50 mcg inhalation powder See Instructions, INHALE 1 PUFF BY INHALATION ROUTE 2 TIMES EVERY DAY IN THE MORNING AND EVENING APPROXIMATELY 12 HOURS APART, # 1 unknown unit, eRx: [facility] [id number], INHALE 1 PUFF BY INHALATION ROUTE 2 TIMES EVERY DAY IN THE MORNING AND EV... Start Date: 02/25/15 Status: Ordered albuterol 2.5 mg/3 mL (0.083%) inhalation solution 3 mL, Inhalation, q6hr (scheduled), # 60 Each, 1 Refill(s), Pharmacy: [facility] [id number], 3 mL Inhalation q6hr (scheduled) Start Date: 02/13/15 Status: Ordered Atrovent 42 mcg/inh nasal spray 2 sprays, Nasal, TID, # 2 Each, 5 Refill(s), Pharmacy: [facility] [id number] Start Date: 06/11/15 Stop Date: 06/11/16 Status: Ordered Carafate 1 g oral tablet 1 g 1 tabs, Oral, QID, Dissolve in water and drink, # 40 tabs, 0 Refill(s) Start Date: 08/31/15 Status: Ordered cetirizine 10 mg oral tablet 10 mg 1 tabs, Oral, Daily, # 30 tabs, 5 Refill(s), Pharmacy: [facility] [id number], 1 tabs Oral Daily Start Date: 09/01/15 Status: Ordered levETIRAcetam 500 mg oral tablet See Instructions, TAKE 3 TABLETS BY MOUTH TWICE DAILY, # 180 tabs, 12 Refill(s) , eRx: [facility] [id number], TAKE 3 TABLETS BY MOUTH TWICE DAILY Start Date: 02/27/15 Status: Ordered Linzess 290 mcg oral capsule 1 caps, Oral, Daily, # 30 caps, 6 Refill(s), Pharmacy: [facility] [id number], 1 caps Oral Daily Start Date: 02/24/15 Status: Ordered loratadine 10 mg oral tablet 10 mg, Oral, Daily, # 30 tabs, 5 Refill(s), Pharmacy: [facility] [id number] , 10 mg Oral Daily Start Date: [...] # 1 Each, 1 Refill(s), Pharmacy : [facility] [id number] Start Date: 06/11/15 Status: Ordered traZODone Oral, [...] Range]: Sodium Venous 139 mEq/L [136-144 mEq/L] (04/05/15 6:45 PM) Potassium Venous 3.9 mEq/L 1 [3.6-5.1 mEq/L] (04/05/15 6:45 PM) Calcium Ionized 1.16 mmol/L Venous [1.19-1.41 *LOW* mmol/L] (04/05/15 6:45 PM) Total CO2 Venous 23 mEq/L [25-29 mEq/L] *LOW* (04/05/15 6:45 PM) HGB Venous NPT 12.2 gm/dL [12.0-16.0 gm/dL] (04/05/15 6:45 PM) HCT Venous 36.0 % [37.0-47.0 %] *LOW* (04/05/15 6:45 PM) Glucose Venous 95 mg/dL [70-100 mg/dL] (04/05/15 6:45 PM) BUN Venous [4-20] 9 (04/05/15 6:45 PM) Creatinine Venous 0.7 mg/dL [0.4-1.0 mg/dL] (04/05/15 6:45 PM) Venous CL [99-109 105 mEq/L mEq/L] (04/05/15 6:45 PM) Anion Gap, Darron 11 [3-20] (04/05/15 6:45 PM) 1Result Comment: This test was performed on a whole blood specimen. The presence or absence of hemolysis cannot be assessed. Hemolysis can falsely elevate potassium levels. Normals are for venous specimens only. Urinalysis Most recent to 1 oldest [Reference Range]: Type Venous (04/05/15 6:45 PM) Immunizations Vaccine Date Refusal Reason pneumococcal 23-polyvalent vaccine 11/18/14 Procedures Procedure Date Related Diagnosis Body Site Esophagogastroduodenoscopy Balloon Dilat1 02/14/15 Examination Under Anesthesia2 02/14/15 Adenoidectomy Bilateral tubal ligation Bronchoscope Cardiac catheterization, combined right and left heart Tonsillectomy Tympanostomy [place] tooth 1auto-populated from documented surgical case 2auto-populated from documented surgical case Social History Social History Type Response Smoking Status Former smoker; Type: Cigarettes; Tobacco use per day: 1 Pack1 1quit 05/2015 Assessment and Plan No data available for this section
--- OUTSIDE RECORDS SUMMARY | 2017-01-20 22:02 | XMS REPORT | Referral Summary ---
Author Author [facility] Organization [facility] Address Unknown Phone Unavailable Care Team Providers Care Stock Wetter Name Role Phone Imelda Martin Primary Care Physician [phone] Encounter VC Date(s): 06/08/16 - 06/08/16 [facility] [address] [place], [place] [address] Discharge Diagnosis: Menstrual period late Discharge Diagnosis: Acute lower UTI (urinary tract infection) Discharge Disposition: 01-Home or Self Care Attending Physician: Yue Maldonado MD Admitting Physician: Yue Maldonado MD Vital Signs Most recent to 1 oldest [Reference Range]: Temperature Oral 38 degC [35.8-37.3 degC] *HI* (06/08/16 11:17 AM) Peripheral Pulse 112 bpm Rate [60-100 bpm] *HI* (06/08/16 11:17 AM) Respiratory Rate 16 br/min [14-20 br/min] (06/08/16 11:17 AM) Blood Pressure 111/66 mmHg [90-140/60-90 mmHg] (06/08/16 11:17 AM) SpO2 98 % (06/08/16 11:17 AM) Problem List Condition Effective Dates Status [...] QIDACHS, # 280 mL, 0 Refill(s), Pharmacy: [facility], 10 mL Oral QIDACHS Start Date: 02/15/16 Status: Ordered Claritin 10 mg, Oral, Daily, 0 Refill(s) Start Date: 01/23/16 Status: Ordered Keflex 500 mg oral capsule 500 mg 1 caps, Oral, QID, X 7 days, # 28 caps, 0 Refill(s) Start Date: 06/08/16 Stop Date: 06/15/16 Status: Ordered Keppra 500 mg oral tablet [...] to 1 oldest [Reference Range]: WBC [4.8-10.8 9.1 10*3/uL 10*3/uL] (06/08/16 1:03 PM) RBC [4.00-5.20] 4.85 (06/08/16 1:03 PM) Hgb [12.0-16.0 11.9 gm/dL gm/dL] *LOW* (06/08/16 1:03 PM) Hct [37.0-47.0 %] 38.7 % (06/08/16 1:03 PM) MCV [82.0-99.0 fL] 79.8 fL *LOW* (06/08/16 1:03 PM) MCH [27.0-32.0 pg] 24.5 pg *LOW* (06/08/16 1:03 PM) MCHC [32.0-36.0 30.7 gm/dL gm/dL] *LOW* (06/08/16 1:03 PM) RDW [11.5-14.5 %] 18.5 % *HI* (06/08/16 1:03 PM) Platelet [150-400 235 10*3/uL 10*3/uL] (06/08/16 1:03 PM) MPV [9.4-12.4 fL] 10.0 fL (06/08/16 1:03 PM) Immature 0.3 % Granulocytes (06/08/16 1:03 PM) [0.0-1.0 %] Neutrophils [51-75 73 % %] (06/08/16 1:03 PM) Lymphocytes [20-46 20 % %] (06/08/16 1:03 PM) Monocytes [4-11 %] 6 % (06/08/16 1:03 PM) Eosinophils [0-4 %] 1 % (06/08/16 1:03 PM) Basophils [0-2 %] 0 % (06/08/16 1:03 PM) Neutro Absolute 6.64 10*3 [1.90-7.00 10*3] (06/08/16 1:03 PM) Lymph Absolute 1.83 10*3 [0.80-3.30 10*3] (06/08/16 1:03 PM) White Absolute 0.50 10*3 [0.30-1.00 10*3] (06/08/16 1:03 PM) Eos Absolute 0.05 10*3 [0.00-0.50 10*3] (06/08/16 1:03 PM) Baso Absolute 0.02 10*3 [0.00-0.20 10*3] (06/08/16 1:03 PM) Nucleated RBC 0.0 /100 WBC Automated [0 /100 (06/08/16 1:03 PM) WBC] Chemistry Most recent to 1 oldest [Reference Range]: Sodium Lvl [136-144 136 mEq/L mEq/L] (06/08/16 1:03 PM) Potassium Lvl 3.6 mEq/L [3.6-5.1 mEq/L] (06/08/16 1:03 PM) Chloride [99-109 105 mEq/L mEq/L] (06/08/16 1:03 PM) CO2 [22-32 mEq/L] 21 mEq/L *LOW* (06/08/16 1:03 PM) AGAP [3-20] 10 (06/08/16 1:03 PM) BUN [4-20 mg/dL] 9 mg/dL (06/08/16 1:03 PM) Glucose Lvl [70-100 83 mg/dL mg/dL] (06/08/16 1:03 PM) Creatinine Lvl 0.79 mg/dL [0.44-1.03 mg/dL] (06/08/16 1:03 PM) eGFR [>60] >60 1 (06/08/16 1:03 PM) Calcium Lvl 9.4 mg/dL [8.6-10.0 mg/dL] (06/08/16 1:03 PM) Albumin Lvl [3.5-4.8 3.9 gm/dL gm/dL] (06/08/16 1:03 PM) Total Protein 7.6 gm/dL [6.1-7.9 gm/dL] (06/08/16 1:03 PM) Globulin [1.9-4.3 3.7 gm/dL gm/dL] (06/08/16 1:03 PM) ALT [14-54 U/L] 16 U/L (06/08/16 1:03 PM) AST [15-41 U/L] 20 U/L (06/08/16 1:03 PM) Alk Phos [26-104 83 U/L U/L] (06/08/16 1:03 PM) Bili Total [0.2-1.2 0.9 mg/dL 2 mg/dL] (06/08/16 1:03 PM) U Beta hCG Ql Negative (06/08/16 11:49 AM) 1Result Comment: Multiply eGFR results by 1.21 for race. 2Result Comment: Naproxen, specifically the metabolite O-desmethylnaproxen, may cause spurious elevation in Total Bilirubin levels. Urinalysis Most recent to 1 oldest [Reference Range]: UA Color Yellow (06/08/16 11:44 AM) UA Appear Cloudy *ABN* (06/08/16 11:44 AM) UA pH [5.0-8.0] 5.0 (06/08/16 11:44 AM) UA Leuk Est Pos 3+ [Negative] *ABN* (06/08/16 11:44 AM) UA Nitrite Negative [Negative] (06/08/16 11:44 AM) UA Protein Negative [Negative] (06/08/16 11:44 AM) UA Glucose Negative [Negative] (06/08/16 11:44 AM) UA Ketones Negative [Negative] (06/08/16 11:44 AM) UA Urobilinogen Negative [<1.0] (06/08/16 11:44 AM) UA Bili [Negative] Negative (06/08/16 11:44 AM) UA Blood [Negative] Pos 3+ *ABN* (06/08/16 11:44 AM) UA Spec Grav 1.015 [1.003-1.030] (06/08/16 11:44 AM) Type Clean Catch (06/08/16 11:44 AM) UA WBC [0-4] 5-10 *ABN* (06/08/16 11:44 AM) UA RBC [0-2] 20-50 *ABN* (06/08/16 11:44 AM) Epithelial Cells 5-10 (06/08/16 11:44 AM) UA Bacteria Occasional *ABN* (06/08/16 11:44 AM) UA Mucous Present (06/08/16 11:44 AM) Microbiology Reports TEST: Affirm Vaginitis Panel STATUS: Auth (Verified) BODY SITE: SOURCE: Cervix/Vaginal COLLECTED DATE/TIME: 06/08/16 11:43 AM Affirm Vaginitis Panel Negative for Trichomonas vaginalis Negative for Gardnerella vaginalis Negative for Velma species Immunizations Vaccine Date Refusal Reason pneumococcal 23-polyvalent vaccine 11/18/14 Procedures Procedure Date Related Diagnosis Body Site Esophagogastroduodenoscopy - SN1 06/04/16 Esophagogastroduodenoscopy Foreign Body 01/06/16 Removal2 Procedure with Anesthesia3 01/06/16 Esophagogastroduodenoscopy Balloon Dilat4 02/14/15 Examination Under Anesthesia5 02/14/15 Adenoidectomy Bilateral tubal ligation Bronchoscope Cardiac catheterization, combined right and left heart Tonsillectomy Tympanostomy [place] tooth 1auto-populated from documented surgical case 2auto-populated from documented surgical case 3auto-populated from documented surgical case 4auto-populated from documented surgical case 5auto-populated from documented surgical case Social History Social History Type Response Smoking Status Never smoker Assessment and Plan No data available for this section
--- OUTSIDE RECORDS SUMMARY | 2017-01-20 22:02 | XMS REPORT | Referral Summary ---
Author Author [facility] Organization [facility] Address Unknown Phone Unavailable Care Team Providers Care Steam Blocker Name Role Phone Imelda Martin Primary Care Physician [phone] Encounter VC Date(s): 06/03/16 - 06/03/16 [facility] [address] [place], [place] [address] Discharge Diagnosis: Sore throat Discharge Disposition: 01-Home or Self Care Attending Physician: Presley Frias MD Admitting Physician: Presley Frias MD Vital Signs Most recent to 1 oldest [Reference Range]: Temperature Oral 36.9 degC [35.8-37.3 degC] (06/03/16 12:43 PM) Peripheral Pulse 91 bpm Rate [60-100 bpm] (06/03/16 2:10 PM) Respiratory Rate 16 br/min [14-20 br/min] (06/03/16 2:10 PM) Blood Pressure 113/81 mmHg [90-140/60-90 mmHg] (06/03/16 2:10 PM) SpO2 98 % (06/03/16 2:10 PM) Problem List Condition Effective Dates Status [...] HOURS APART, # 1 unknown unit, eRx: [facility] [id number], INHALE 1 PUFF BY INHALATION ROUTE 2 TIMES EVERY DAY IN THE MORNING AND EV... Start Date: 02/25/15 Status: Ordered Carafate 1 g/10 mL oral suspension 10 mL, Oral, QIDACHS, # 280 mL, 0 Refill(s), Pharmacy: [facility], 10 mL Oral QIDACHS Start Date: 02/15/16 Status: Ordered Claritin mg, 0 Refill(s) Start [...] 0 Refill(s) Start Date: 03/03/16 Status: Ordered Keppra 500 mg oral tablet 500 mg 1 tabs, Oral, BID, # 60 tabs, 0 Refill(s) Start Date: 04/21/16 Stop Date: 05/21/16 Status: Ordered Mobic 7.5 mg oral tablet 7.5 mg 1 tabs, Oral, Daily, # 14 tabs, 0 Refill(s) Start Date: 05/22/16 Stop Date: 06/05/16 Status: Ordered naproxen Oral, 0 Refill(s) Start Date: 05/26/16 Status: Ordered ProAir HFA 90 mcg/inh inhalation aerosol See Instructions, 2-4 puffs every 4-6 hrs prn., # 1 Each, 1 Refill(s), Pharmacy : [facility] [id number] Start Date: 06/11/15 Status: Ordered promethazine 25 mg oral tablet 25 mg 1 tabs, Oral, q4hr, Nausea or Vomiting, # 12 tabs, 0 Refill(s) Start Date: 03/07/16 Status: Ordered promethazine 25 mg oral tablet 25 mg 1 tabs, Oral, q6hr, as needed for nausea/vomiting, # 10 tabs, 0 Refill(s) Start Date: 05/08/16 Status: Ordered Singulair qPM, 0 Refill(s) Start Date: 01/23/16 Status: Ordered Vitamin D3 1,000 Intl_Units, Oral, Daily, 0 Refill(s) Start Date: 10/26/14 Status: Ordered Zofran 4 mg oral tablet 4 mg 1 tabs, Oral, Once, # 10 tabs, 0 Refill(s) Start Date: 03/19/16 Status: Ordered Results No data available for this section Immunizations Vaccine Date Refusal Reason pneumococcal 23-polyvalent vaccine 11/18/14 Procedures Procedure Date Related Diagnosis Body Site Esophagogastroduodenoscopy Foreign Body 01/06/16 Removal1 Procedure with Anesthesia2 01/06/16 Esophagogastroduodenoscopy Balloon Dilat3 02/14/15 Examination Under Anesthesia4 02/14/15 Adenoidectomy Bilateral tubal ligation Bronchoscope Cardiac catheterization, combined right and left heart Tonsillectomy Tympanostomy [place] tooth 1auto-populated from documented surgical case 2auto-populated from documented surgical case 3auto-populated from documented surgical case 4auto-populated from documented surgical case Social History Social History Type Response Smoking Status Never smoker Assessment and Plan No data available for this section
--- OUTSIDE RECORDS SUMMARY | 2017-01-20 22:03 | XMS REPORT | Referral Summary ---
Author Author [facility] Organization [facility] Address Unknown Phone Unavailable Care Team Providers Care Assisted Living Housekeeper Name Role Phone Imelda Martin Primary Care Physician [phone] Encounter VC Date(s): 02/14/15 - 02/14/15 [facility] [address] [facility] [place] [address] CW [phone] Final: STRICTURE AND STENOSIS OF ESOPHAGUS Final: DIAPHRAGMATIC HERNIA WITHOUT MENTION OF OBSTRUCTION OR GANGRENE Final: EPILEPSY, UNSPECIFIED, WITHOUT MENTION OF INTRACTABLE EPILEPSY Final: TOBACCO USE DISORDER Final: MAJOR DEPRESSIVE DISORDER, SINGLE EPISODE, UNSPECIFIED DEGREE Final: ANXIETY STATE, UNSPECIFIED Final: ESOPHAGEAL REFLUX Final: Asthma, unspecified Final: MORBID OBESITY Discharge Disposition: 01-Home or Self Care Attending Physician: Eloise Monzon MD Admitting Physician: Eloise Monzon MD Vital Signs Most recent to 1 oldest [Reference Range]: Temperature Oral 36.9 degC [35.8-37.3 degC] (02/14/15 11:52 AM) Peripheral Pulse 82 bpm Rate [60-100 bpm] (02/14/15 11:52 AM) Heart Rate Monitored 95 bpm [60-100 bpm] (02/14/15 3:50 PM) Respiratory Rate 16 br/min [14-20 br/min] (02/14/15 3:50 PM) Blood Pressure 117/77 mmHg [90-140/60-90 mmHg] (02/14/15 3:50 PM) Mean Arterial 78 mmHg Pressure, Cuff (02/14/15 3:35 PM) SpO2 97 % (02/14/15 3:50 PM) Problem List Condition Effective Dates Status [...] pain, # 300 mL, 0 Refill(s), Pharmacy: [facility] [id number], 10 mL Oral q6hr,PRN:as needed for pain Start Date: 12/24/14 Status: Ordered Advair Diskus 250 mcg-50 mcg inhalation powder See Instructions, INHALE 1 PUFF BY INHALATION ROUTE 2 TIMES EVERY DAY IN THE MORNING AND EVENING APPROXIMATELY 12 HOURS APART, # 1 unknown unit, eRx: [facility] [id number], INHALE 1 PUFF BY INHALATION ROUTE 2 TIMES EVERY DAY IN THE MORNING AND EV... Start Date: 02/25/15 Status: Ordered albuterol 2.5 mg/3 mL (0.083%) inhalation solution 3 mL, Inhalation, q6hr (scheduled), # 60 Each, 1 Refill(s), Pharmacy: [facility] [id number], 3 mL Inhalation q6hr (scheduled) Start Date: 02/13/15 Status: Ordered Atrovent 42 mcg/inh nasal spray 2 sprays, Nasal, TID, # 2 Each, 5 Refill(s), Pharmacy: [facility] [id number] Start Date: 06/11/15 Stop Date: 06/11/16 Status: Ordered Chloraseptic [place] 1.4% topical spray 5 sprays, Oral, q2hr, # 10 mL, 0 Refill(s) Start Date: 08/11/15 Stop Date: 08/11/16 Status: Ordered levETIRAcetam 500 mg oral tablet See Instructions, TAKE 3 TABLETS BY MOUTH TWICE DAILY, # 180 tabs, 12 Refill(s) , [id number], TAKE 3 TABLETS BY MOUTH TWICE DAILY Start Date: 02/27/15 Status: Ordered Linzess 290 mcg oral capsule 1 caps, Oral, Daily, # 30 caps, 6 Refill(s), Pharmacy: [facility] [id number], 1 caps Oral Daily Start Date: 02/24/15 Status: Ordered loratadine 10 mg oral tablet 10 mg, Oral, Daily, # 30 tabs, 5 Refill(s), [id number] , 10 mg Oral Daily Start Date: [...] # 1 Each, 1 Refill(s), Pharmacy : [facility] [id number] Start Date: 06/11/15 Status: Ordered traZODone Oral, [...] oldest [Reference Range]: Screen, Negative Urine NPT (02/14/15 12:00 PM) Immunizations Vaccine Date Refusal Reason pneumococcal 23-polyvalent vaccine 11/18/14 Procedures Procedure Date Related Diagnosis Body Site Esophagogastroduodenoscopy Balloon Dilat1 02/14/15 Examination Under Anesthesia2 02/14/15 Adenoidectomy Bilateral tubal ligation Bronchoscope Cardiac catheterization, combined right and left heart Tonsillectomy Tympanostomy [place] tooth 1auto-populated from documented surgical case 2auto-populated from documented surgical case Social History Social History Type Response Smoking Status Former smoker; Type: Cigarettes; Tobacco use per day: 1 Pack1 1quit 05/2015 Assessment and Plan No data available for this section
--- OUTSIDE RECORDS SUMMARY | 2017-01-20 22:03 | XMS REPORT | Referral Summary ---
Author Author [facility] Organization [facility] Address Unknown Phone Unavailable Care Team Providers Care In Room Dining Server Name Role Phone Imelda Martin Primary Care Physician [phone] Encounter VC Date(s): 03/10/15 - 03/10/15 [facility] [address] [place], [place] [address] Discharge Diagnosis: Foreign body in throat, resolved Final: Other symptoms involving head and neck Final: TOBACCO USE DISORDER Discharge Disposition: 01-Home or Self Care Attending Physician: Jose Daily MD Admitting Physician: Jose Daily MD Vital Signs Most recent to 1 oldest [Reference Range]: Temperature Temporal 36.3 degC Artery [36.3-37.8 (03/10/15 2:37 PM) degC] Peripheral Pulse 97 bpm Rate [60-100 bpm] (03/10/15 6:02 PM) Respiratory Rate 16 br/min [14-20 br/min] (03/10/15 6:02 PM) Blood Pressure 109/90 mmHg [90-140/60-90 mmHg] (03/10/15 6:02 PM) SpO2 97 % (03/10/15 6:02 PM) Problem List Condition Effective Dates [...] pain, # 300 mL, 0 Refill(s), Pharmacy: [facility] [id number], 10 mL Oral q6hr,PRN:as needed for pain Start Date: 12/24/14 Status: Ordered Advair Diskus 250 mcg-50 mcg inhalation powder See Instructions, INHALE 1 PUFF BY INHALATION ROUTE 2 TIMES EVERY DAY IN THE MORNING AND EVENING APPROXIMATELY 12 HOURS APART, # 1 unknown unit, eRx: [facility] [id number], INHALE 1 PUFF BY INHALATION ROUTE 2 TIMES EVERY DAY IN THE MORNING AND EV... Start Date: 02/25/15 Status: Ordered albuterol 2.5 mg/3 mL (0.083%) inhalation solution 3 mL, Inhalation, q6hr (scheduled), # 60 Each, 1 Refill(s), Pharmacy: [facility] [id number], 3 mL Inhalation q6hr (scheduled) Start Date: 02/13/15 Status: Ordered Atrovent 42 mcg/inh nasal spray 2 sprays, Nasal, TID, # 2 Each, 5 Refill(s), Pharmacy: [facility] [id number] Start Date: 06/11/15 Stop Date: 06/11/16 Status: Ordered Carafate 1 g oral tablet 1 g 1 tabs, Oral, QID, Dissolve in water and drink, # 40 tabs, 0 Refill(s) Start Date: 08/31/15 Status: Ordered cetirizine 10 mg oral tablet 10 mg 1 tabs, Oral, Daily, # 30 tabs, 5 Refill(s), Pharmacy: [facility] [id number], 1 tabs Oral Daily Start Date: 09/01/15 Status: Ordered levETIRAcetam 500 mg oral tablet See Instructions, TAKE 3 TABLETS BY MOUTH TWICE DAILY, # 180 tabs, 12 Refill(s) , eRx: [facility] [id number], TAKE 3 TABLETS BY MOUTH TWICE DAILY Start Date: 02/27/15 Status: Ordered Linzess 290 mcg oral capsule 1 caps, Oral, Daily, # 30 caps, 6 Refill(s), Pharmacy: [facility] [address], 1 caps Oral Daily Start Date: 02/24/15 Status: Ordered loratadine 10 mg oral tablet 10 mg, Oral, Daily, # 30 tabs, 5 Refill(s), Pharmacy: [facility] [id number] , 10 mg Oral Daily Start Date: [...] # 1 Each, 1 Refill(s), Pharmacy : [facility] [id number] Start Date: 06/11/15 Status: Ordered traZODone Oral, [...] combined right and left heart Tonsillectomy Tympanostomy [place] tooth 1auto-populated from documented surgical case 2auto-populated from documented surgical case Social History Social History Type Response Smoking Status Former smoker; Type: Cigarettes; Tobacco use per day: 1 Pack1 1quit 05/2015 Assessment and Plan No data available for this section
--- OUTSIDE RECORDS SUMMARY | 2017-01-20 22:03 | XMS REPORT | Referral Summary ---
Author Author Via [facility] Organization [facility] Address Unknown Phone Unavailable Care Team Providers Care Bottom Filler Name Role Phone Imelda Martin Primary Care Physician [phone] Encounter VC Date(s): 08/11/15 - 08/11/[address] [facility] [address] [place], [place] [address] Discharge Diagnosis: Acute UTI Discharge Diagnosis: Sore throat Discharge Disposition: 01-Home or Self Care Attending Physician: Miguel Uriostegui MD Admitting Physician: Miguel Uriostegui MD Vital Signs Most recent to 1 2 oldest [Reference Range]: Temperature Oral 37.0 degC [35.8-37.3 degC] (08/11/15 8:30 PM) Peripheral Pulse 106 bpm Rate [60-100 bpm] *HI* (08/11/15 10:43 PM) Heart Rate Monitored 103 bpm [60-100 bpm] *HI* (08/11/15 10:43 PM) Respiratory Rate 20 br/min [14-20 br/min] (08/11/15 8:30 PM) Blood Pressure 115/66 mmHg 115/66 mmHg [90-140/60-90 mmHg] (08/11/15 10:43 PM) (08/11/15 10:43 PM) Mean Arterial 88 mmHg Pressure, Cuff (08/11/15 9:47 PM) SpO2 98 % 97 % (08/11/15 10:43 PM) (08/11/15 10:43 PM) Problem List Condition Effective Dates Status [...] pain, # 300 mL, 0 Refill(s), Pharmacy: [facility] [id number], 10 mL Oral q6hr,PRN:as needed for pain Start Date: 12/24/14 Status: Ordered Advair Diskus 250 mcg-50 mcg inhalation powder See Instructions, INHALE 1 PUFF BY INHALATION ROUTE 2 TIMES EVERY DAY IN THE MORNING AND EVENING APPROXIMATELY 12 HOURS APART, # 1 unknown unit, eRx: [facility] [id number], INHALE 1 PUFF BY INHALATION ROUTE 2 TIMES EVERY DAY IN THE MORNING AND EV... Start Date: 02/25/15 Status: Ordered albuterol 2.5 mg/3 mL (0.083%) inhalation solution 3 mL, Inhalation, q6hr (scheduled), # 60 Each, 1 Refill(s), Pharmacy: [facility] [id number], 3 mL Inhalation q6hr (scheduled) Start Date: 02/13/15 Status: Ordered Atrovent 42 mcg/inh nasal spray 2 sprays, Nasal, TID, # 2 Each, 5 Refill(s), Pharmacy: [facility] [id number] Start Date: 06/11/15 Stop Date: 06/11/16 Status: Ordered Chloraseptic Bow[place] 1.4% topical spray 5 sprays, Oral, q2hr, # 10 mL, 0 Refill(s) Start Date: 08/11/15 Stop Date: 08/11/16 Status: Ordered Keflex 500 mg oral capsule 500 mg 1 caps, Oral, q8hr, X 7 days, # 21 caps, 0 Refill(s), SUPERVISING PHYS. DR. URIOSTEGUI Start Date: 08/11/15 Stop Date: 08/18/15 Status: Ordered levETIRAcetam 500 mg oral tablet See Instructions, TAKE 3 TABLETS BY MOUTH TWICE DAILY, # 180 tabs, 12 Refill(s) , eRx: [facility] [id number], TAKE 3 TABLETS BY MOUTH TWICE DAILY Start Date: 02/27/15 Status: Ordered Linzess 290 mcg oral capsule 1 caps, Oral, Daily, # 30 caps, 6 Refill(s), Pharmacy: [facility] [id number], 1 caps Oral Daily Start Date: 02/24/15 Status: Ordered loratadine 10 mg oral tablet 10 mg, Oral, Daily, # 30 tabs, 5 Refill(s), Pharmacy: [facility] [id number] , 10 mg Oral Daily Start Date: [...] # 1 Each, 1 Refill(s), Pharmacy : [facility] [id number] Start Date: 06/11/15 Status: Ordered traZODone Oral, [...] Refill(s) Start Date: 11/21/14 Status: Ordered Results Urinalysis Most recent to 1 oldest [Reference Range]: UA Color Dk Yellow (08/11/15 10:13 PM) UA Appear Clear (08/11/15 10:13 PM) UA pH [5.0-8.0] 7.0 (08/11/15 10:13 PM) UA Leuk Est Pos 1+ [Negative] *ABN* (08/11/15 10:13 PM) UA Nitrite Negative [Negative] (08/11/15 10:13 PM) UA Protein Negative [Negative] (08/11/15 10:13 PM) UA Glucose Negative [Negative] (08/11/15 10:13 PM) UA Ketones Negative [Negative] (08/11/15 10:13 PM) UA Urobilinogen Negative [<1.0] (08/11/15 10:13 PM) UA Bili [Negative] Negative (08/11/15 10:13 PM) UA Blood [Negative] Trace *ABN* (08/11/15 10:13 PM) UA Spec Grav 1.025 [1.003-1.030] (08/11/15 10:13 PM) Type Clean Catch (08/11/15 10:13 PM) UA WBC [0-4] 2-5 (08/11/15 10:13 PM) UA RBC [0-2] 0-2 (08/11/15 10:13 PM) Epithelial Cells 0-2 (08/11/15 10:13 PM) UA Bacteria Occasional *ABN* (08/11/15 10:13 PM) UA Mucous Present (08/11/15 10:13 PM) Immunizations Vaccine Date Refusal Reason pneumococcal 23-polyvalent vaccine 11/18/14 Procedures Procedure Date Related Diagnosis Body Site Esophagogastroduodenoscopy Balloon Dilat1 02/14/15 Examination Under Anesthesia2 02/14/15 Adenoidectomy Bilateral tubal ligation Bronchoscope Cardiac catheterization, combined right and left heart Tonsillectomy Tympanostomy [place] tooth 1auto-populated from documented surgical case 2auto-populated from documented surgical case Social History Social History Type Response Smoking Status Current every day smoker; Type: Cigarettes; Tobacco use per day: 1 Pack Assessment and Plan No data available for this section
--- OUTSIDE RECORDS SUMMARY | 2017-01-20 22:03 | XMS REPORT | Referral Summary ---
Author Organization Unknown Address Unknown Phone Unavailable Care Team Providers Care Labor Arbitrator Name Role Phone Pardeep Poole Primary Care Physician [phone] Encounter VC Date(s): 11/06/14 - 11/06/14 Via N[facility] Wagner, E , [facility] [address] [place] [id number] Discharge Diagnosis: Preop examination Discharge Diagnosis: Strabismus Discharge Diagnosis: Hiatal hernia Discharge Disposition: Home or Self Care Attending Physician: Sarah Poole MD Admitting Physician: Sarah Poole MD Vital Signs Most recent to 1 oldest [Reference Range]: Peripheral Pulse 97 bpm Rate [60-100 bpm] (11/06/14 9:28 AM) Blood Pressure 128/70 mmHg [90-140/60-90 mmHg] (11/06/14 9:28 AM) Most recent to 1 oldest [Reference Range]: SpO2 97 % (11/06/14 9:28 AM) Problem List Condition Effective Dates Status [...] Active depression with psychotic features (disorder)(Confirmed ) UTI(Confirmed) 2008 Resolved 1Problem added automatically by system based [...] Start Date: 09/30/14 Status: Ordered Carafate 1 g/10 mL oral suspension 10 mL, Oral, QIDACHS, # 1,200 mL, 6 Refill(s), Pharmacy: [facility] [id number], 10 mL Oral QIDACHS Start Date: 10/07/14 Status: Ordered Flonase 50 mcg/inh nasal spray 1 sprays, Nasal, BID, # 16 g, 5 Refill(s), Pharmacy: [facility] [id number] Start Date: 09/30/14 Status: Ordered FLUoxetine 60 mg oral tablet 1 tabs, Oral, Daily, # 30 tabs, 0 Refill(s) Start Date: 11/06/14 Status: Ordered Latuda 60 mg, Oral, Daily, 0 Refill(s) Start Date: 03/29/14 Status: Ordered levETIRAcetam 500 mg oral tablet See Instructions, TAKE 3 TABLETS BY MOUTH TWICE DAILY, # 180 tabs, 2 Refill(s), TRAN, eRx: [facility] [id number], TAKE 3 TABLETS BY MOUTH TWICE DAILY Special Instructions: TAKE 3 TABLETS BY MOUTH TWICE DAILY Start Date: 11/01/14 Status: Ordered loratadine 10 mg, Oral, Daily, 0 Refill(s) Start Date: 10/26/14 Status: Ordered NexIUM 40 mg oral delayed release capsule 1 caps, Oral, Daily, # 30 caps, 5 Refill(s), Pharmacy: [facility] [id number], 1 caps Oral Daily Start Date: 07/19/14 Status: Ordered ProAir HFA 90 mcg/inh inhalation aerosol See Instructions, 2-4 puffs every 4-6 hrs prn., # 1 Each, 1 Refill(s), Pharmacy : [facility] [id number] Special Instructions: 2-4 puffs every 4-6 hrs prn. Start Date: 09/30/14 Status: Ordered Remeron 60 mg, Oral, Bedtime (once a day), 0 Refill(s) Start Date: 09/19/14 Status: Ordered Vimpat 100 mg oral tablet 1 tabs, Oral, BID, # 60 tabs, 2 Refill(s) Start Date: 10/08/14 Status: Ordered Vitamin D3 0 Refill(s) Start Date: 10/26/14 Status: Ordered Results Hematology Most recent to 1 oldest [Reference Range]: WBC [4.8-10.8 K/uL] 4.8 K/uL (11/06/14 10:35 AM) RBC [4.00-5.20 M/uL] 4.74 M/uL (11/06/14 10:35 AM) Hgb [12.0-16.0 12.8 gm/dL gm/dL] (11/06/14 10:35 AM) Hct [37.0-47.0 %] 40.1 % (11/06/14 10:35 AM) MCV [82.0-99.0 fL] 84.6 fL (11/06/14 10:35 AM) MCH [27.0-32.0 pg] 27.0 pg (11/06/14 10:35 AM) MCHC [32.0-36.0 31.9 gm/dL gm/dL] *LOW* (11/06/14 10:35 AM) RDW [11.5-14.5 %] 22.2 % *HI* (11/06/14 10:35 AM) Platelet [150-400 266 K/uL K/uL] (11/06/14 10:35 AM) MPV [8.8-14.8 fL] 10.1 fL (11/06/14 10:35 AM) Neutrophils [51-75 69 % %] (11/06/14 10:35 AM) Lymphocytes [20-46 20 % %] (11/06/14 10:35 AM) Monocytes [4-11 %] 9 % (11/06/14 10:35 AM) Eosinophils [0-4 %] 2 % (11/06/14 10:35 AM) Basophils [0-2 %] 0 % (11/06/14 10:35 AM) Neutro Absolute 3.31 THOUS [1.90-7.00 THOUS] (11/06/14 10:35 AM) Lymph Absolute 0.96 THOUS [0.80-3.30 THOUS] (11/06/14 10:35 AM) [place] Absolute 0.43 THOUS [0.30-1.00 THOUS] (11/06/14 10:35 AM) Eos Absolute 0.10 THOUS [0.00-0.50 THOUS] (11/06/14 10:35 AM) Baso Absolute 0.00 THOUS [0.00-0.20 THOUS] (11/06/14 10:35 AM) Differential Manual *ABN* (11/06/14 10:35 AM) Coagulation Most recent to 1 oldest [Reference Range]: INR [0.9-1.2] 1.0 (11/06/14 10:35 AM) Chemistry Most recent to 1 oldest [Reference Range]: Sodium Lvl [135-144 140 mEq/L mEq/L] (11/06/14 10:35 AM) Potassium Lvl 4.5 mEq/L [3.5-5.2 mEq/L] (11/06/14 10:35 AM) Chloride [99-111 111 mEq/L mEq/L] (11/06/14 10:35 AM) CO2 [22-31 mEq/L] 20 mEq/L *LOW* (11/06/14 10:35 AM) AGAP [3-20] 9 (11/06/14 10:35 AM) BUN [7-19 mg/dL] 12 mg/dL (11/06/14 10:35 AM) Glucose Lvl [70-99 91 mg/dL mg/dL] (11/06/14 10:35 AM) Creatinine Lvl 0.62 mg/dL [0.57-1.11 mg/dL] (11/06/14 10:35 AM) eGFR [>60 mL/min] >60 mL/min 1 (11/06/14 10:35 AM) Calcium Lvl 9.2 mg/dL [8.9-10.5 mg/dL] (11/06/14 10:35 AM) Albumin Lvl [3.5-5.0 3.9 gm/dL gm/dL] (11/06/14 10:35 AM) Total Protein 7.1 gm/dL [6.4-8.3 gm/dL] (11/06/14 10:35 AM) Globulin [1.8-4.0 3.2 gm/dL gm/dL] (11/06/14 10:35 AM) ALT [0-55 unit/L] 12 unit/L (11/06/14 10:35 AM) AST [5-34 unit/L] 14 unit/L (11/06/14 10:35 AM) Alk Phos [40-150 89 unit/L unit/L] (11/06/14 10:35 AM) Bili Total [0.2-1.2 0.4 mg/dL mg/dL] (11/06/14 10:35 AM) 1Result Comment: Multiply eGFR results by 1.21 for race. Urinalysis Most recent to 1 oldest [Reference Range]: UA Color Yellow (11/06/14 10:45 AM) UA Appear Cloudy *ABN* (11/06/14 10:45 AM) UA pH [5.0-8.0] 7.0 (11/06/14 10:45 AM) UA Leuk Est Trace [Negative] *ABN* (11/06/14 10:45 AM) UA Nitrite Negative [Negative] (11/06/14 10:45 AM) UA Protein Negative [Negative] (11/06/14 10:45 AM) UA Glucose Negative [Negative] (11/06/14 10:45 AM) UA Ketones Negative [Negative] (11/06/14 10:45 AM) UA Urobilinogen 0.2 mg/dL (11/06/14 10:45 AM) UA Bili [Negative] Negative (11/06/14 10:45 AM) UA Blood Trace *ABN* (11/06/14 10:45 AM) UA Spec Grav 1.025 [1.003-1.030] (11/06/14 10:45 AM) Type Cl Catch (11/06/14 10:45 AM) UA WBC [0-4] 5-10 *ABN* (11/06/14 10:45 AM) UA RBC [0-2] 5-10 *ABN* (11/06/14 10:45 AM) Epithelial Cells 2-5 (11/06/14 10:45 AM) UA Bacteria Rare (11/06/14 10:45 AM) UA Hyal Cast [0-3] 1-3 (11/06/14 10:45 AM) Immunizations No data available for this section Procedures Procedure Date Related Diagnosis Body Site Adenoidectomy Bilateral tubal ligation Bronchoscope Tonsillectomy Tympanostomy [place] tooth Social History Social History Type Response Smoking Status Former smoker Assessment and Plan Extracted from: Title: *Preop clearance Author: Sarah Poole MD Date: 11/06/14 Assessment/Plan Hiatal hernia Preop examination Strabismus Orders: Urine Culture Labs, EKG and CXR were normal. Pt is medically cleared for strabismus surgery. However, pt does have a significant hiatal hernia that anesthesia should be made aware of. Although pt was here for preop clearance a significant amount of time was spent discussing the pt's ER overuse with her. Discussed that it should be used for emergencies only and not as a walk in clinic. Also discussed that the issues she has been using the ER for are chronic issues and should be addressed during office hours.
--- OUTSIDE RECORDS SUMMARY | 2017-01-20 22:03 | XMS REPORT | Referral Summary ---
Author Author [facility] Organization [facility] Address Unknown Phone Unavailable Care Team Providers Care Manager Supply Chain Planning Name Role Phone Imelda Martin Primary Care Physician [phone] Encounter VC Date(s): 09/05/15 - 09/05/15 [facility] [address] [place], [place] [address] Discharge Diagnosis: Nausea & vomiting Discharge Diagnosis: Chronic abdominal pain Discharge Disposition: 01-Home or Self Care Attending Physician: Presley Frias MD Admitting Physician: Presley Frias MD Vital Signs Most recent to 1 oldest [Reference Range]: Temperature Temporal 36.0 degC Artery [36.3-37.8 *LOW* degC] (09/05/15 5:41 PM) Peripheral Pulse 80 bpm Rate [60-100 bpm] (09/05/15 8:18 PM) Respiratory Rate 16 br/min [14-20 br/min] (09/05/15 8:18 PM) Blood Pressure 118/76 mmHg [90-140/60-90 mmHg] (09/05/15 8:18 PM) SpO2 99 % (09/05/15 8:18 PM) Problem List Condition Effective Dates Status [...] pain, # 300 mL, 0 Refill(s), Pharmacy: [email or web address] [id number], 10 mL Oral q6hr,PRN:as needed for pain Start Date: 12/24/14 Status: Ordered Advair Diskus 250 mcg-50 mcg inhalation powder See Instructions, INHALE 1 PUFF BY INHALATION ROUTE 2 TIMES EVERY DAY IN THE MORNING AND EVENING APPROXIMATELY 12 HOURS APART, # 1 unknown unit, eRx: [email or web address] [id number], INHALE 1 PUFF BY INHALATION ROUTE 2 TIMES EVERY DAY IN THE MORNING AND EV... Start Date: 02/25/15 Status: Ordered albuterol 2.5 mg/3 mL (0.083%) inhalation solution 3 mL, Inhalation, q6hr (scheduled), # 60 Each, 1 Refill(s), Pharmacy: [email or web address] [id number], 3 mL Inhalation q6hr (scheduled) Start Date: 02/13/15 Status: Ordered Atrovent 42 mcg/inh nasal spray 2 sprays, Nasal, TID, # 2 Each, 5 Refill(s), Pharmacy: [email or web address] [id number] Start Date: 06/11/15 Stop Date: 06/11/16 Status: Ordered Carafate 1 g oral tablet 1 g 1 tabs, Oral, QID, Dissolve in water and drink, # 40 tabs, 0 Refill(s) Start Date: 08/31/15 Status: Ordered cetirizine 10 mg oral tablet 10 mg 1 tabs, Oral, Daily, # 30 tabs, 5 Refill(s), Pharmacy: [email or web address] [id number], 1 tabs Oral Daily Start Date: 09/01/15 Status: Ordered levETIRAcetam 500 mg oral tablet See Instructions, TAKE 3 TABLETS BY MOUTH TWICE DAILY, # 180 tabs, 12 Refill(s) , eRx: [facility] [id number], TAKE 3 TABLETS BY MOUTH TWICE DAILY Start Date: 02/27/15 Status: Ordered Linzess 290 mcg oral capsule 1 caps, Oral, Daily, # 30 caps, 6 Refill(s), Pharmacy: [facility] [address]474, 1 caps Oral Daily Start Date: 02/24/15 Status: Ordered loratadine 10 mg oral tablet 10 mg, Oral, Daily, # 30 tabs, 5 Refill(s), Pharmacy: [facility] [address] , 10 mg Oral Daily Start Date: [...] # 1 Each, 1 Refill(s), Pharmacy : [facility] [address] Start Date: 06/11/15 Status: Ordered traZODone Oral, 0 Refill(s) Start Date: 04/05/15 Status: Ordered Viibryd Oral, Daily, 0 Refill(s) Start Date: 04/05/15 Status: Ordered Vitamin D3 1,000 Intl_Units, Oral, Daily, 0 Refill(s) Start Date: 10/26/14 Status: Ordered Zofran ODT 4 mg oral tablet, disintegrating 4 mg 1 tabs, Oral, TID, X 2 days, # 6 tabs, 0 Refill(s) Start Date: 09/05/15 Stop Date: 09/07/15 Status: Ordered Zofran ODT 4 mg oral tablet, disintegrating 1 tabs, Oral, TID, as needed for nausea/vomiting, # 10 tabs, 0 Refill(s) Start Date: 11/21/14 Status: Ordered Results Urinalysis Most recent to 1 oldest [Reference Range]: UA Color Lt Yellow (09/05/15 7:48 PM) UA Appear Clear (09/05/15 7:48 PM) UA pH [5.0-8.0] 7.0 (09/05/15 7:48 PM) UA Leuk Est Negative [Negative] (09/05/15 7:48 PM) UA Nitrite Negative [Negative] (09/05/15 7:48 PM) UA Protein Negative [Negative] (09/05/15 7:48 PM) UA Glucose Negative [Negative] (09/05/15 7:48 PM) UA Ketones Negative [Negative] (09/05/15 7:48 PM) UA Urobilinogen Negative [<1.0] (09/05/15 7:48 PM) UA Bili [Negative] Negative (09/05/15 7:48 PM) UA Blood [Negative] Negative (09/05/15 7:48 PM) UA Spec Grav 1.007 [1.003-1.030] (09/05/15 7:48 PM) Type Clean Catch (09/05/15 7:48 PM) Immunizations Vaccine Date Refusal Reason pneumococcal 23-polyvalent vaccine 11/18/14 Procedures Procedure Date Related Diagnosis Body Site Esophagogastroduodenoscopy Balloon Dilat1 02/14/15 Examination Under Anesthesia2 02/14/15 Adenoidectomy Bilateral tubal ligation Bronchoscope Cardiac catheterization, combined right and left heart Tonsillectomy Tympanostomy [place] tooth 1auto-populated from documented surgical case 2auto-populated from documented surgical case Social History Social History Type Response Smoking Status Former smoker; Type: Cigarettes; Tobacco use per day: 1 Pack1 1quit 05/2015 Assessment and Plan No data available for this section
--- OUTSIDE RECORDS SUMMARY | 2017-01-20 22:03 | XMS REPORT | Referral Summary ---
Author Author [facility] Organization [facility] Address Unknown Phone Unavailable Care Team Providers Care Roofing Contractor Name Role Phone Imelda Martin Primary Care Physician [phone] Encounter VC Date(s): 03/27/15 - 03/27/15 [facility] [address] [facility] [place] [address] Discharge Diagnosis: Chest wall pain Discharge Diagnosis: Pneumonia Final: PNEUMONIA, ORGANISM UNSPECIFIED Discharge Disposition: 01-Home or Self Care Attending Physician: Edu Hunter MD Admitting Physician: Edu Hunter MD Vital Signs Most recent to 1 2 oldest [Reference Range]: Temperature Oral 36.6 degC [35.8-37.3 degC] (03/27/15 4:20 PM) Peripheral Pulse 101 bpm Rate [60-100 bpm] *HI* (03/27/15 6:45 PM) Heart Rate Monitored 101 bpm [60-100 bpm] *HI* (03/27/15 6:45 PM) Respiratory Rate 20 br/min 20 br/min [14-20 br/min] (03/27/15 6:45 PM) (03/27/15 6:45 PM) Blood Pressure 118/99 mmHg 118/99 mmHg [90-140/60-90 mmHg] (03/27/15 6:45 PM) (03/27/15 6:45 PM) Mean Arterial 99 mmHg Pressure, Cuff (03/27/15 6:25 PM) SpO2 96 % 96 % (03/27/15 6:45 PM) (03/27/15 6:45 PM) Problem List Condition Effective Dates Status [...] pain, # 300 mL, 0 Refill(s), Pharmacy: [facility] [id number], 10 mL Oral q6hr,PRN:as needed for pain Start Date: 12/24/14 Status: Ordered Advair Diskus 250 mcg-50 mcg inhalation powder See Instructions, INHALE 1 PUFF BY INHALATION ROUTE 2 TIMES EVERY DAY IN THE MORNING AND EVENING APPROXIMATELY 12 HOURS APART, # 1 unknown unit, eRx: [facility] [id number], INHALE 1 PUFF BY INHALATION ROUTE 2 TIMES EVERY DAY IN THE MORNING AND EV... Start Date: 02/25/15 Status: Ordered albuterol 2.5 mg/3 mL (0.083%) inhalation solution 3 mL, Inhalation, q6hr (scheduled), # 60 Each, 1 Refill(s), Pharmacy: [facility] [id number], 3 mL Inhalation q6hr (scheduled) Start Date: 02/13/15 Status: Ordered Atrovent 42 mcg/inh nasal spray 2 sprays, Nasal, TID, # 2 Each, 5 Refill(s), Pharmacy: [facility] [id number] Start Date: 06/11/15 Stop Date: 06/11/16 Status: Ordered Carafate 1 g oral tablet 1 g 1 tabs, Oral, QID, Dissolve in water and drink, # 40 tabs, 0 Refill(s) Start Date: 08/31/15 Status: Ordered cetirizine 10 mg oral tablet 10 mg 1 tabs, Oral, Daily, # 30 tabs, 5 Refill(s), Pharmacy: [facility] [id number], 1 tabs Oral Daily Start Date: 09/01/15 Status: Ordered levETIRAcetam 500 mg oral tablet See Instructions, TAKE 3 TABLETS BY MOUTH TWICE DAILY, # 180 tabs, 12 Refill(s) , eRx: [facility] [id number], TAKE 3 TABLETS BY MOUTH TWICE DAILY Start Date: 02/27/15 Status: Ordered Linzess 290 mcg oral capsule 1 caps, Oral, Daily, # 30 caps, 6 Refill(s), Pharmacy: [facility] [id number], 1 caps Oral Daily Start Date: 02/24/15 Status: Ordered loratadine 10 mg oral tablet 10 mg, Oral, Daily, # 30 tabs, 5 Refill(s), Pharmacy: [facility] [id number] , 10 mg Oral Daily Start Date: [...] # 1 Each, 1 Refill(s), Pharmacy : [facility] [id number] Start Date: 06/11/15 Status: Ordered traZODone Oral, [...] combined right and left heart Tonsillectomy Tympanostomy [place] tooth 1auto-populated from documented surgical case 2auto-populated from documented surgical case Social History Social History Type Response Smoking Status Former smoker; Type: Cigarettes; Tobacco use per day: 1 Pack1 1quit 05/2015 Assessment and Plan No data available for this section
--- OUTSIDE RECORDS SUMMARY | 2017-01-20 22:03 | XMS REPORT | Referral Summary ---
Author Author [facility] Organization [facility] Address Unknown Phone Unavailable Care Team Providers Care Hammer Shop Supervisor Name Role Phone Imelda Martin Primary Care Physician [phone] Encounter VC Date(s): 08/31/15 - 08/31/15 [facility] [address] [place], [place] [address] Discharge Diagnosis: Gastritis Discharge Diagnosis: Abdominal pain Discharge Diagnosis: Acute UTI Discharge Disposition: 01-Home or Self Care Attending Physician: Ramona Otto DO Admitting Physician: Ramona Otto DO Referring Physician: Self Referred, X Vital Signs Most recent to 1 oldest [Reference Range]: Temperature Oral 36.8 degC [35.8-37.3 degC] (08/31/15 6:09 PM) Peripheral Pulse 88 bpm Rate [60-100 bpm] (08/31/15 6:09 PM) Respiratory Rate 20 br/min [14-20 br/min] (08/31/15 6:09 PM) Blood Pressure 126/83 mmHg [90-140/60-90 mmHg] (08/31/15 6:09 PM) SpO2 99 % (08/31/15 6:09 PM) Problem List Condition Effective Dates Status [...] pain, # 300 mL, 0 Refill(s), Pharmacy: [id number], 10 mL Oral q6hr,PRN:as needed for pain Start Date: 12/24/14 Status: Ordered Advair Diskus 250 mcg-50 mcg inhalation powder See Instructions, INHALE 1 PUFF BY INHALATION ROUTE 2 TIMES EVERY DAY IN THE MORNING AND EVENING APPROXIMATELY 12 HOURS APART, # 1 unknown unit, eRx: [facility] [id number], INHALE 1 PUFF BY INHALATION ROUTE 2 TIMES EVERY DAY IN THE MORNING AND EV... Start Date: 02/25/15 Status: Ordered albuterol 2.5 mg/3 mL (0.083%) inhalation solution 3 mL, Inhalation, q6hr (scheduled), # 60 Each, 1 Refill(s), Pharmacy: [facility] [id number], 3 mL Inhalation q6hr (scheduled) Start Date: 02/13/15 Status: Ordered Atrovent 42 mcg/inh nasal spray 2 sprays, Nasal, TID, # 2 Each, 5 Refill(s), Pharmacy: [facility] [id number] Start Date: 06/11/15 Stop Date: 06/11/16 Status: Ordered Carafate 1 g oral tablet 1 g 1 tabs, Oral, QID, Dissolve in water and drink, # 40 tabs, 0 Refill(s) Start Date: 08/31/15 Status: Ordered Chloraseptic [place] 1.4% topical spray 5 sprays, Oral, q2hr, # 10 mL, 0 Refill(s) Start Date: 08/11/15 Stop Date: 08/11/16 Status: Ordered levETIRAcetam 500 mg oral tablet See Instructions, TAKE 3 TABLETS BY MOUTH TWICE DAILY, # 180 tabs, 12 Refill(s) , eRx: [facility] [id number], TAKE 3 TABLETS BY MOUTH TWICE DAILY Start Date: 02/27/15 Status: Ordered Levsin 0.125 mg oral tablet 0.125 mg 1 tabs, Oral, QID, # 15 tabs, 0 Refill(s) Start Date: 08/27/15 Status: Ordered Linzess 290 mcg oral capsule 1 caps, Oral, Daily, # 30 caps, 6 Refill(s), Pharmacy: [facility] [id number], 1 caps Oral Daily Start Date: 02/24/15 Status: Ordered loratadine 10 mg oral tablet 10 mg, Oral, Daily, # 30 tabs, 5 Refill(s), Pharmacy: [facility] [id number] , 10 mg Oral Daily Start Date: 01/14/15 Status: Ordered Macrobid 100 mg oral capsule 100 mg 1 caps, Oral, BID, X 5 days, # 10 caps, 0 Refill(s) Start Date: 08/31/15 Stop Date: 09/05/15 Status: Ordered ondansetron 4 mg oral tablet 4 mg 1 tabs, Oral, q4hr, Nausea or Vomiting, # 12 tabs, 0 Refill(s) Start Date: 04/05/15 Status: Ordered ondansetron 4 mg oral tablet 4 mg 1 tabs, Oral, q4hr, Nausea or Vomiting, # 12 tabs, 0 Refill(s) Start Date: 08/27/15 Stop Date: 09/03/15 Status: Ordered Pepcid 20 mg oral tablet [...] # 1 Each, 1 Refill(s), Pharmacy : [facility] [id number] Start Date: 06/11/15 Status: Ordered traZODone Oral, [...] to 1 oldest [Reference Range]: WBC [4.8-10.8 7.8 10*3/uL 10*3/uL] (08/31/15 5:15 PM) RBC [4.00-5.20] 4.01 (08/31/15 5:15 PM) Hgb [12.0-16.0 9.2 gm/dL gm/dL] *LOW* (08/31/15 5:15 PM) Hct [37.0-47.0 %] 31.7 % *LOW* (08/31/15 5:15 PM) MCV [82.0-99.0 fL] 79.1 fL *LOW* (08/31/15 5:15 PM) MCH [27.0-32.0 pg] 22.9 pg *LOW* (08/31/15 5:15 PM) MCHC [32.0-36.0 29.0 gm/dL gm/dL] *LOW* (08/31/15 5:15 PM) RDW [11.5-14.5 %] 18.7 % *HI* (08/31/15 5:15 PM) Platelet [150-400 243 10*3/uL 10*3/uL] (08/31/15 5:15 PM) MPV [9.4-12.4 fL] 9.3 fL *LOW* (08/31/15 5:15 PM) Immature 0.1 % Granulocytes (08/31/15 5:15 PM) [0.0-1.0 %] Neutrophils [51-75 69 % %] (08/31/15 5:15 PM) Lymphocytes [20-46 22 % %] (08/31/15 5:15 PM) Monocytes [4-11 %] 7 % (08/31/15 5:15 PM) Eosinophils [0-4 %] 2 % (08/31/15 5:15 PM) Basophils [0-2 %] 0 % (08/31/15 5:15 PM) Neutro Absolute 5.37 10*3 [1.90-7.00 10*3] (08/31/15 5:15 PM) Lymph Absolute 1.68 10*3 [0.80-3.30 10*3] (08/31/15 5:15 PM) [place] Absolute 0.53 10*3 [0.30-1.00 10*3] (08/31/15 5:15 PM) Eos Absolute 0.17 10*3 [0.00-0.50 10*3] (08/31/15 5:15 PM) Baso Absolute 0.03 10*3 [0.00-0.20 10*3] (08/31/15 5:15 PM) Chemistry Most recent to 1 oldest [Reference Range]: Sodium Lvl [136-144 137 mEq/L mEq/L] (08/31/15 5:15 PM) Potassium Lvl 3.7 mEq/L [3.6-5.1 mEq/L] (08/31/15 5:15 PM) Chloride [99-109 107 mEq/L mEq/L] (08/31/15 5:15 PM) CO2 [22-32 mEq/L] 23 mEq/L (08/31/15 5:15 PM) AGAP [3-20] 7 (08/31/15 5:15 PM) BUN [4-20 mg/dL] 7 mg/dL (08/31/15 5:15 PM) Glucose Lvl [70-100 84 mg/dL mg/dL] (08/31/15 5:15 PM) Creatinine Lvl 0.62 mg/dL [0.44-1.03 mg/dL] (08/31/15 5:15 PM) eGFR [>60] >60 1 (08/31/15 5:15 PM) Calcium Lvl 8.6 mg/dL [8.6-10.0 mg/dL] (08/31/15 5:15 PM) Albumin Lvl [3.5-4.8 3.1 gm/dL gm/dL] *LOW* (08/31/15 5:15 PM) Total Protein 6.3 gm/dL [6.1-7.9 gm/dL] (08/31/15 5:15 PM) Globulin [1.9-4.3 3.2 gm/dL gm/dL] (08/31/15 5:15 PM) ALT [14-54 U/L] 13 U/L *LOW* (08/31/15 5:15 PM) AST [15-41 U/L] 18 U/L (08/31/15 5:15 PM) Alk Phos [26-104 73 U/L U/L] (08/31/15 5:15 PM) Bili Total [0.2-1.2 0.6 mg/dL 2 mg/dL] (08/31/15 5:15 PM) Lipase Lvl [8-48 17 U/L U/L] (08/31/15 5:15 PM) 1Result Comment: Multiply eGFR results by 1.21 for race. 2Result Comment: Naproxen, specifically the metabolite O-desmethylnaproxen, may cause spurious elevation in Total Bilirubin levels. Urinalysis Most recent to 1 oldest [Reference Range]: UA Color Yellow (08/31/15 5:15 PM) UA Appear Sl Cloudy (08/31/15 5:15 PM) UA pH [5.0-8.0] 7.0 (08/31/15 5:15 PM) UA Leuk Est Trace [Negative] *ABN* (08/31/15 5:15 PM) UA Nitrite Negative [Negative] (08/31/15 5:15 PM) UA Protein Negative [Negative] (08/31/15 5:15 PM) UA Glucose Negative [Negative] (08/31/15 5:15 PM) UA Ketones Negative [Negative] (08/31/15 5:15 PM) UA Urobilinogen Negative [<1.0] (08/31/15 5:15 PM) UA Bili [Negative] Negative (08/31/15 5:15 PM) UA Blood [Negative] Pos 1+ *ABN* (08/31/15 5:15 PM) UA Spec Grav 1.027 [1.003-1.030] (08/31/15 5:15 PM) Type Clean Catch (08/31/15 5:15 PM) UA WBC [0-4] 0-2 (08/31/15 5:15 PM) UA RBC [0-2] 0-2 (08/31/15 5:15 PM) Epithelial Cells 2-5 (08/31/15 5:15 PM) UA Bacteria Moderate *ABN* (08/31/15 5:15 PM) UA Mucous Present (08/31/15 5:15 PM) Immunizations Vaccine Date Refusal Reason pneumococcal 23-polyvalent vaccine 11/18/14 Procedures Procedure Date Related Diagnosis Body Site Esophagogastroduodenoscopy Balloon Dilat1 02/14/15 Examination Under Anesthesia2 02/14/15 Adenoidectomy Bilateral tubal ligation Bronchoscope Cardiac catheterization, combined right and left heart Tonsillectomy Tympanostomy [place] tooth 1auto-populated from documented surgical case 2auto-populated from documented surgical case Social History Social History Type Response Smoking Status Former smoker; Type: Cigarettes; Tobacco use per day: 1 Pack1 1quit 05/2015 Assessment and Plan No data available for this section
--- OUTSIDE RECORDS SUMMARY | 2017-01-20 22:03 | XMS REPORT | Referral Summary ---
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 Name Role Phone Imelda Martin Primary Care Physician [phone] Encounter [facility] [id number] Date(s): 05/01/16 - 05/01/16 [facility] [address] [place], [place] [address] Discharge Diagnosis: Acute chest wall pain Discharge Disposition: 01-Home or Self Care Attending Physician: Vance Lei MD Admitting Physician: Vance Lei MD Vital Signs Most recent to 1 oldest [Reference Range]: Temperature Oral 36.5 degC [35.8-37.3 degC] (05/01/16 7:56 PM) Peripheral Pulse 81 bpm Rate [60-100 bpm] (05/01/16 8:24 PM) Respiratory Rate 16 br/min [14-20 br/min] (05/01/16 7:56 PM) Blood Pressure 113/80 mmHg [90-140/60-90 mmHg] (05/01/16 8:24 PM) SpO2 99 % (05/01/16 8:24 PM) Problem List Condition Effective Dates Status [...] HOURS APART, # 1 unknown unit, eRx: [facility] [id number], INHALE 1 PUFF BY INHALATION ROUTE 2 TIMES EVERY DAY IN THE MORNING AND EV... Start Date: 02/25/15 Status: Ordered Carafate 1 g/10 mL oral suspension 10 mL, Oral, QIDACHS, # 280 mL, 0 Refill(s), Pharmacy: [facility], 10 mL Oral QIDACHS Start [...] 0 Refill(s) Start Date: 03/03/16 Status: Ordered Keflex 500 mg oral capsule 500 mg 1 caps, Oral, BID, X 7 days, # 14 caps, 0 Refill(s) Start Date: 04/27/16 Stop Date: 05/04/16 Status: Ordered Keppra 500 mg oral tablet 500 mg 1 tabs, Oral, BID, # 60 tabs, 0 Refill(s) Start Date: 04/21/16 Stop Date: 05/21/16 Status: Ordered ProAir HFA 90 mcg/inh inhalation aerosol See Instructions, 2-4 puffs every 4-6 hrs prn., # 1 Each, 1 Refill(s), Pharmacy : [id number] Start Date: 06/11/15 Status: Ordered promethazine 25 [...] combined right and left heart Tonsillectomy Tympanostomy [place] tooth 1auto-populated from documented surgical case 2auto-populated from documented surgical case 3auto-populated from documented surgical case 4auto-populated from documented surgical case Social History Social History Type Response Smoking Status Never smoker Assessment and Plan No data available for this section
--- OUTSIDE RECORDS SUMMARY | 2017-01-20 22:03 | XMS REPORT | Referral Summary ---
Author Author [facility] Organization [facility] Address Unknown Phone Unavailable Care Team Providers Care Cupola Melter Name Role Phone Imelda Martin Primary Care Physician [phone] Encounter [facility] Date(s): 02/20/15 - 02/20/15 [facility] [address] [place] [address] [facility] Discharge Diagnosis: Abdominal pain Discharge Diagnosis: Multiple complaints Discharge Disposition: 01-Home or Self Care Attending Physician: Vandana Elizalde PA-C Attending Physician: Olinda Garcias Attending Physician: Provider, Immediate Care Admitting Physician: Provider, Immediate Care Vital Signs Most recent to 1 oldest [Reference Range]: Temperature Oral 36.7 degC [35.8-37.3 degC] (02/20/15 7:26 PM) Peripheral Pulse 103 bpm Rate [60-100 bpm] *HI* (02/20/15 7:26 PM) Blood Pressure 121/84 mmHg [90-140/60-90 mmHg] (02/20/15 7:26 PM) SpO2 96 % (02/20/15 7:26 PM) Problem List Condition Effective Dates Status [...] pain, # 300 mL, 0 Refill(s), Pharmacy: [facility] [id number], 10 mL Oral q6hr,PRN:as needed for pain Start Date: 12/24/14 Status: Ordered Advair Diskus 250 mcg-50 mcg inhalation powder See Instructions, INHALE 1 PUFF BY INHALATION ROUTE 2 TIMES EVERY DAY IN THE MORNING AND EVENING APPROXIMATELY 12 HOURS APART, # 1 unknown unit, eRx: [facility] [id number], INHALE 1 PUFF BY INHALATION ROUTE 2 TIMES EVERY DAY IN THE MORNING AND EV... Start Date: 02/25/15 Status: Ordered albuterol 2.5 mg/3 mL (0.083%) inhalation solution 3 mL, Inhalation, q6hr (scheduled), # 60 Each, 1 Refill(s), Pharmacy: [facility] [id number], 3 mL Inhalation q6hr (scheduled) Start Date: 02/13/15 Status: Ordered Atrovent 42 mcg/inh nasal spray 2 sprays, Nasal, TID, # 2 Each, 5 Refill(s), Pharmacy: [facility] [id number] Start Date: 06/11/15 Stop Date: 06/11/16 Status: Ordered Carafate 1 g oral tablet 1 g 1 tabs, Oral, QID, Dissolve in water and drink, # 40 tabs, 0 Refill(s) Start Date: 08/31/15 Status: Ordered cetirizine 10 mg oral tablet 10 mg 1 tabs, Oral, Daily, # 30 tabs, 5 Refill(s), Pharmacy: [facility] [id number], 1 tabs Oral Daily Start Date: 09/01/15 Status: Ordered Chloraseptic [place] 1.4% topical spray 5 sprays, Oral, q2hr, # 10 mL, 0 Refill(s) Start Date: 08/11/15 Stop Date: 08/11/16 Status: Ordered levETIRAcetam 500 mg oral tablet See Instructions, TAKE 3 TABLETS BY MOUTH TWICE DAILY, # 180 tabs, 12 Refill(s) , eRx: [facility] [id number], TAKE 3 TABLETS BY MOUTH TWICE DAILY Start Date: 02/27/15 Status: Ordered Levsin 0.125 mg oral tablet 0.125 mg 1 tabs, Oral, QID, # 15 tabs, 0 Refill(s) Start Date: 08/27/15 Status: Ordered Linzess 290 mcg oral capsule 1 caps, Oral, Daily, # 30 caps, 6 Refill(s), Pharmacy: [facility] [id number], 1 caps Oral Daily Start Date: 02/24/15 Status: Ordered loratadine 10 mg oral tablet 10 mg, Oral, Daily, # 30 tabs, 5 Refill(s), Pharmacy: [facility] [id number] , 10 mg Oral Daily Start Date: [...] # 1 Each, 1 Refill(s), Pharmacy : [facility]48 Start Date: 06/11/15 Status: Ordered traZODone Oral, [...] combined right and left heart Tonsillectomy Tympanostomy [place] tooth 1auto-populated from documented surgical case 2auto-populated from documented surgical case Social History Social History Type Response Smoking Status Former smoker; Type: Cigarettes; Tobacco use per day: 1 Pack1 1quit 05/2015 Assessment and Plan Extracted from: Title: Office Visit Note Author: Vandana Elizalde PA-C Date: 02/20/15 Assessment/Plan Abdominal pain Due to abdominal guarding, and severe pain recommend evaluation in the emergency room as they have diagnostic testing. Upon further review of her chart, [facility] was notified of recent [facility] visits. Ordered: Office Visit Level 2 Est 17148 Multiple complaints deferred as patient was referred to the emergency room. His appears stable and to be muscular skeletal. Was evaluated in the ER 2 days ago. No diagnostic testing was done. Questions were answered. Patient verbalized understanding. Patient left in stable condition. Ordered: Office Visit Level 2 Est 10737
--- OUTSIDE RECORDS SUMMARY | 2017-01-20 22:04 | XMS REPORT | Referral Summary ---
Author Author [facility] Organization [facility] Address Unknown Phone Unavailable Care Team Providers Care Physical Therapy Aide Name Role Phone Imelda Martin Primary Care Physician [phone] Encounter [facility] Date(s): 09/10/15 - 09/11/15 [facility] [address] [place], [place] [address] Discharge Diagnosis: Abdominal pain, chronic, generalized Discharge Disposition: 01-Home or Self Care Attending Physician: Presley Frias MD Admitting Physician: Presley Frias MD Vital Signs Most recent to 1 oldest [Reference Range]: Temperature Oral 37 degC [35.8-37.3 degC] (09/10/15 11:37 PM) Peripheral Pulse 102 bpm Rate [60-100 bpm] *HI* (09/11/15 12:26 AM) Respiratory Rate 18 br/min [14-20 br/min] (09/11/15 12:26 AM) Blood Pressure 137/93 mmHg [90-140/60-90 mmHg] (09/11/15 12:26 AM) SpO2 98 % (09/11/15 12:26 AM) Problem List Condition Effective Dates Status [...] pain, # 300 mL, 0 Refill(s), Pharmacy: [id number], 10 mL Oral q6hr,PRN:as needed for pain Start Date: 12/24/14 Status: Ordered Advair Diskus 250 mcg-50 mcg inhalation powder See Instructions, INHALE 1 PUFF BY INHALATION ROUTE 2 TIMES EVERY DAY IN THE MORNING AND EVENING APPROXIMATELY 12 HOURS APART, # 1 unknown unit, eRx: [facility] [id number], INHALE 1 PUFF BY INHALATION ROUTE 2 TIMES EVERY DAY IN THE MORNING AND EV... Start Date: 02/25/15 Status: Ordered albuterol 2.5 mg/3 mL (0.083%) inhalation solution 3 mL, Inhalation, q6hr (scheduled), # 60 Each, 1 Refill(s), Pharmacy: [facility] 9[facility]13, 3 mL Inhalation q6hr (scheduled) Start Date: 02/13/15 Status: Ordered Atrovent 42 mcg/inh nasal spray 2 sprays, Nasal, TID, # 2 Each, 5 Refill(s), Pharmacy: [facility] [id number] Start Date: 06/11/15 Stop Date: 06/11/16 Status: Ordered Carafate 1 g oral tablet 1 g 1 tabs, Oral, QID, Dissolve in water and drink, # 40 tabs, 0 Refill(s) Start Date: 08/31/15 Status: Ordered cetirizine 10 mg oral tablet 10 mg 1 tabs, Oral, Daily, # 30 tabs, 5 Refill(s), Pharmacy: [facility] 07[facility], 1 tabs Oral Daily Start Date: 09/01/15 Status: Ordered levETIRAcetam 500 mg oral tablet See Instructions, TAKE 3 TABLETS BY MOUTH TWICE DAILY, # 180 tabs, 12 Refill(s) , eRx: [id number], TAKE 3 TABLETS BY MOUTH TWICE DAILY Start Date: 02/27/15 Status: Ordered Linzess 290 mcg oral capsule 1 caps, Oral, Daily, # 30 caps, 6 Refill(s), Pharmacy: [facility] 42569, 1 caps Oral Daily Start Date: 02/24/15 Status: Ordered loratadine 10 mg oral tablet 10 mg, Oral, Daily, # 30 tabs, 5 Refill(s), Pharmacy: [facility] 56112 , 10 mg Oral Daily Start Date: [...] # 1 Each, 1 Refill(s), Pharmacy : [facility] 18381 Start Date: 06/11/15 Status: Ordered traZODone Oral, [...] combined right and left heart Tonsillectomy Tympanostomy [place] tooth 1auto-populated from documented surgical case 2auto-populated from documented surgical case Social History Social History Type Response Smoking Status Former smoker; Type: Cigarettes; Tobacco use per day: 1 Pack1 1quit 05/2015 Assessment and Plan No data available for this section
--- OUTSIDE RECORDS SUMMARY | 2017-01-20 22:04 | XMS REPORT | Referral Summary ---
Author Author [facility] Organization [facility] Address Unknown Phone Unavailable Care Team Providers Care Busher Helper Name Role Phone Imelda Martin Primary Care Physician [phone] Encounter Date(s): 04/20/15 - 04/20/15 [facility] [address] [place] [address] Discharge Diagnosis: Abdominal pain Discharge Diagnosis: Nausea Final: ABDOMINAL PAIN, OTHER SPECIFIED SITE; MULTIPLE SITES Final: NAUSEA ALONE Discharge Disposition: 01-Home or Self Care Attending Physician: Santos Tesfaye MD Admitting Physician: Santos Tesfaye MD Vital Signs Most recent to 1 oldest [Reference Range]: Temperature Oral 36.6 degC [35.8-37.3 degC] (04/20/15 3:26 PM) Peripheral Pulse 64 bpm Rate [60-100 bpm] (04/20/15 1:58 PM) Heart Rate Monitored 7 bpm [60-100 bpm] *LOW* (04/20/15 3:26 PM) Respiratory Rate 14 br/min [14-20 br/min] (04/20/15 3:26 PM) Blood Pressure 109/79 mmHg [90-140/60-90 mmHg] (04/20/15 3:26 PM) SpO2 98 % (04/20/15 3:26 PM) Problem List Condition Effective Dates Status [...] pain, # 300 mL, 0 Refill(s), Pharmacy: [facility] [id number], 10 mL Oral q6hr,PRN:as needed for pain Start Date: 12/24/14 Status: Ordered Advair Diskus 250 mcg-50 mcg inhalation powder See Instructions, INHALE 1 PUFF BY INHALATION ROUTE 2 TIMES EVERY DAY IN THE MORNING AND EVENING APPROXIMATELY 12 HOURS APART, # 1 unknown unit, eRx: [facility] [id number], INHALE 1 PUFF BY INHALATION ROUTE 2 TIMES EVERY DAY IN THE MORNING AND EV... Start Date: 02/25/15 Status: Ordered Atrovent 42 mcg/inh nasal spray 2 sprays, Nasal, TID, # 2 Each, 5 Refill(s), Pharmacy: [facility] [id number] Start Date: 06/11/15 Stop Date: 06/11/16 Status: Ordered Carafate 1 g oral tablet 1 g 1 tabs, Oral, QID, Dissolve in water and drink, # 40 tabs, 0 Refill(s) Start Date: 08/31/15 Status: Ordered cetirizine 10 mg oral tablet 10 mg 1 tabs, Oral, Daily, # 30 tabs, 5 Refill(s), Pharmacy: [facility] [id number], 1 tabs Oral Daily Start Date: 09/01/15 Status: Ordered Linzess 290 mcg oral capsule 1 caps, Oral, Daily, # 30 caps, 6 Refill(s), Pharmacy: [facility] 49050, 1 caps Oral Daily Start Date: 02/24/15 Status: Ordered loratadine 10 mg oral tablet 10 mg, Oral, Daily, # 30 tabs, 5 Refill(s), Pharmacy: [facility] , 10 mg Oral Daily Start Date: [...] # 1 Each, 1 Refill(s), Pharmacy : [facility] [id number] Start Date: 06/11/15 Status: Ordered traZODone Oral, 0 Refill(s) Start Date: 04/05/15 Status: Ordered Viibryd Oral, Daily, 0 Refill(s) Start Date: 04/05/15 Status: Ordered Vitamin D3 1,000 Intl_Units, Oral, Daily, 0 Refill(s) Start Date: 10/26/14 Status: Ordered Results Hematology Most recent to 1 oldest [Reference Range]: WBC [4.8-10.8 5.0 10*3/uL 10*3/uL] (04/20/15 2:01 PM) RBC [4.00-5.20 3.92 10*6/uL 10*6/uL] *LOW* (04/20/15 2:01 PM) Hgb [12.0-16.0 10.4 gm/dL gm/dL] *LOW* (04/20/15 2:01 PM) Hct [37.0-47.0 %] 33.4 % *LOW* (04/20/15 2:01 PM) MCV [82.0-99.0 fL] 85.2 fL (04/20/15 2:01 PM) MCH [27.0-32.0 pg] 26.5 pg *LOW* (04/20/15 2:01 PM) MCHC [32.0-36.0 31.1 gm/dL gm/dL] *LOW* (04/20/15 2:01 PM) RDW [11.5-14.5 %] 16.8 % *HI* (04/20/15 2:01 PM) Platelet [150-400 243 10*3/uL 10*3/uL] (04/20/15 2:01 PM) MPV [9.4-12.4 fL] 9.3 fL *LOW* (04/20/15 2:01 PM) Immature 0.2 % Granulocytes (04/20/15 2:01 PM) [0.0-1.0 %] Neutrophils [51-75 58 % %] (04/20/15 2:01 PM) Lymphocytes [20-46 29 % %] (04/20/15 2:01 PM) Monocytes [4-11 %] 11 % (04/20/15 2:01 PM) Eosinophils [0-4 %] 2 % (04/20/15 2:01 PM) Basophils [0-2 %] 0 % (04/20/15 2:01 PM) Neutro Absolute 2.88 10*3 [1.90-7.00 10*3] (04/20/15 2:01 PM) Lymph Absolute 1.46 10*3 [0.80-3.30 10*3] (04/20/15 2:01 PM) [place] Absolute 0.54 10*3 [0.30-1.00 10*3] (04/20/15 2:01 PM) Eos Absolute 0.11 10*3 [0.00-0.50 10*3] (04/20/15 2:01 PM) Baso Absolute 0.01 10*3 [0.00-0.20 10*3] (04/20/15 2:01 PM) Nucleated RBC 0.0 /100 WBC Automated [0 /100 (04/20/15 2:01 PM) WBC] Chemistry Most recent to 1 oldest [Reference Range]: Sodium Lvl [136-144 138 mEq/L mEq/L] (04/20/15 2:01 PM) Potassium Lvl 4.2 mEq/L [3.6-5.1 mEq/L] (04/20/15 2:01 PM) Chloride [99-109 107 mEq/L mEq/L] (04/20/15 2:01 PM) CO2 [22-32 mEq/L] 25 mEq/L (04/20/15 2:01 PM) AGAP [3-20] 6 (04/20/15 2:01 PM) BUN [4-20 mg/dL] 5 mg/dL (04/20/15 2:01 PM) Glucose Lvl [70-100 87 mg/dL mg/dL] (04/20/15 2:01 PM) Creatinine Lvl 0.56 mg/dL [0.44-1.03 mg/dL] (04/20/15 2:01 PM) eGFR [>60] >60 1 (04/20/15 2:01 PM) Calcium Lvl 8.8 mg/dL [8.6-10.0 mg/dL] (04/20/15 2:01 PM) Screen, Negative Urine NPT (04/20/15 1:32 PM) U Beta hCG Ql Neg (04/20/15 1:35 PM) 1Result Comment: Multiply eGFR results by 1.21 for race. Urinalysis Most recent to 1 oldest [Reference Range]: UA Color Lt Yellow (04/20/15 2:01 PM) UA Appear Clear (04/20/15 2:01 PM) UA pH [5.0-8.0] 9.0 *HI* (04/20/15 2:01 PM) UA Leuk Est Negative [Negative] (04/20/15 2:01 PM) UA Nitrite Negative [Negative] (04/20/15 2:01 PM) UA Protein Negative [Negative] (04/20/15 2:01 PM) UA Glucose Negative [Negative] (04/20/15 2:01 PM) UA Ketones Negative [Negative] (04/20/15 2:01 PM) UA Urobilinogen Negative [<1.0] (04/20/15 2:01 PM) UA Bili [Negative] Negative (04/20/15 2:01 PM) UA Blood [Negative] Pos 2+ *ABN* (04/20/15 2:01 PM) UA Spec Grav 1.018 [1.003-1.030] (04/20/15 2:01 PM) Type Voided (04/20/15 2:01 PM) UA WBC [0-4] 0-2 (04/20/15 2:01 PM) UA RBC [0-2] 0-2 (04/20/15 2:01 PM) Epithelial Cells 2-5 (04/20/15 2:01 PM) UA Bacteria - 1 (04/20/15 2:01 PM) Crystals Amorphous (04/20/15 2:01 PM) UA Mucous Present (04/20/15 2:01 PM) 1Result Comment: Amorphous interference. Immunizations Vaccine Date Refusal Reason pneumococcal 23-polyvalent vaccine 11/18/14 Procedures Procedure Date Related Diagnosis Body Site Esophagogastroduodenoscopy Balloon Dilat1 02/14/15 Examination Under Anesthesia2 02/14/15 Adenoidectomy Bilateral tubal ligation Bronchoscope Cardiac catheterization, combined right and left heart Tonsillectomy Tympanostomy [place] tooth 1auto-populated from documented surgical case 2auto-populated from documented surgical case Social History Social History Type Response Smoking Status Former smoker; Type: Cigarettes; Tobacco use per day: 1 Pack1 1quit 05/2015 Assessment and Plan No data available for this section
--- OUTSIDE RECORDS SUMMARY | 2017-01-20 22:04 | XMS REPORT | Referral Summary ---
Author Author [facility] Organization [facility] Address Unknown Phone Unavailable Care Team Providers Care Gas Truck Driver Name Role Phone Imelda Martin Primary Care Physician [phone] Encounter Date(s): 05/15/16 - 05/16/16 [facility] [address] [place], [place] [address] Discharge Diagnosis: Acute UTI Discharge Diagnosis: Chronic abdominal pain Discharge Disposition: 01-Home or Self Care Attending Physician: Milton Magaña MD Admitting Physician: Milton Magaña MD Vital Signs Most recent to 1 oldest [Reference Range]: Temperature Oral 36.4 degC [35.8-37.3 degC] (05/15/16 10:49 PM) Peripheral Pulse 82 bpm Rate [60-100 bpm] (05/16/16 1:02 AM) Respiratory Rate 16 br/min [14-20 br/min] (05/16/16 1:02 AM) Blood Pressure 100/77 mmHg [90-140/60-90 mmHg] (05/16/16 1:02 AM) SpO2 98 % (05/15/16 10:49 PM) Problem List Condition Effective Dates [...] HOURS APART, # 1 unknown unit, eRx: [facility] [id number], INHALE 1 PUFF BY INHALATION ROUTE 2 TIMES EVERY DAY IN THE MORNING AND EV... Start Date: 02/25/15 Status: Ordered Carafate 1 g/10 mL oral suspension 10 mL, Oral, QIDACHS, # 280 mL, 0 Refill(s), Pharmacy: [facility], 10 mL Oral QIDACHS Start [...] Date: 04/21/16 Stop Date: 05/21/16 Status: Ordered Macrobid 100 mg oral capsule 100 mg 1 caps, Oral, BID, X 7 days, # 14 caps, 0 Refill(s) Start Date: 05/16/16 Stop Date: 05/23/16 Status: Ordered ProAir HFA 90 mcg/inh inhalation aerosol See Instructions, 2-4 puffs every 4-6 hrs prn., # 1 Each, 1 Refill(s), Pharmacy : [facility] [id number] Start Date: 06/11/15 Status: Ordered promethazine 25 [...] Refill(s) Start Date: 03/19/16 Status: Ordered Results Chemistry Most recent to 1 oldest [Reference Range]: Screen, Negative Urine NPT (05/15/16 11:44 PM) Urinalysis Most recent to 1 oldest [Reference Range]: UA Color Yellow (05/15/16 11:39 PM) UA Appear Sl Cloudy (05/15/16 11:39 PM) UA pH [5.0-8.0] 5.0 (05/15/16 11:39 PM) UA Leuk Est Pos 3+ [Negative] *ABN* (05/15/16 11:39 PM) UA Nitrite Negative [Negative] (05/15/16 11:39 PM) UA Protein Pos 1+ [Negative] *ABN* (05/15/16 11:39 PM) UA Glucose Negative [Negative] (05/15/16 11:39 PM) UA Ketones Negative [Negative] (05/15/16 11:39 PM) UA Urobilinogen 2.0 mg/dL [<1.0 mg/dL] *ABN* (05/15/16 11:39 PM) UA Bili [Negative] Positive *ABN* (05/15/16 11:39 PM) UA Blood [Negative] Negative (05/15/16 11:39 PM) UA Spec Grav 1.035 [1.003-1.030] *ABN* (05/15/16 11:39 PM) Type Clean Catch (05/15/16 11:39 PM) UA WBC [0-4] 20-50 *ABN* (05/15/16 11:39 PM) Epithelial Cells >50 /HPF (05/15/16 11:39 PM) UA Bacteria Numerous *ABN* (05/15/16 11:39 PM) Crystals Ca Ox (05/15/16 11:39 PM) UA Mucous Present (05/15/16 11:39 PM) Immunizations Vaccine Date Refusal Reason pneumococcal 23-polyvalent vaccine 11/18/14 Procedures Procedure Date Related Diagnosis Body Site Esophagogastroduodenoscopy Foreign Body 01/06/16 Removal1 Procedure with Anesthesia2 01/06/16 Esophagogastroduodenoscopy Balloon Dilat3 02/14/15 Examination Under Anesthesia4 02/14/15 Adenoidectomy Bilateral tubal ligation Bronchoscope Cardiac catheterization, combined right and left heart Tonsillectomy Tympanostomy [place] tooth 1auto-populated from documented surgical case 2auto-populated from documented surgical case 3auto-populated from documented surgical case 4auto-populated from documented surgical case Social History Social History Type Response Smoking Status Never smoker Assessment and Plan No data available for this section
--- OUTSIDE RECORDS SUMMARY | 2017-01-20 22:04 | XMS REPORT | Referral Summary ---
Author Author [facility] Organization [facility] Address Unknown Phone Unavailable Care Team Providers Care Critical Care Paramedic Name Role Phone Imelda Martin Primary Care Physician [phone] Encounter [facility] [id number] Date(s): 03/20/15 - 03/20/15 [facility] [address] [facility] [place] [address] Discharge Diagnosis: Pneumonia Final: PNEUMONIA, ORGANISM UNSPECIFIED Final: TIETZE'S DISEASE Discharge Diagnosis: Costochondritis Discharge Disposition: 01-Home or Self Care Attending Physician: Yasmeen Schultz MD Admitting Physician: Yasmeen Schultz MD Referring Physician: Self Referred, X Vital Signs Most recent to 1 oldest [Reference Range]: Temperature Oral 36.9 degC [35.8-37.3 degC] (03/20/15 9:23 AM) Peripheral Pulse 92 bpm Rate [60-100 bpm] (03/20/15 11:26 AM) Respiratory Rate 18 br/min [14-20 br/min] (03/20/15 11:26 AM) Blood Pressure 109/75 mmHg [90-140/60-90 mmHg] (03/20/15 11:26 AM) SpO2 93 % (03/20/15 11:26 AM) Problem List Condition Effective Dates Status [...] pain, # 300 mL, 0 Refill(s), Pharmacy: [id number], 10 mL Oral q6hr,PRN:as needed for pain Start Date: 12/24/14 Status: Ordered Advair Diskus 250 mcg-50 mcg inhalation powder See Instructions, INHALE 1 PUFF BY INHALATION ROUTE 2 TIMES EVERY DAY IN THE MORNING AND EVENING APPROXIMATELY 12 HOURS APART, # 1 unknown unit, eRx: [facility] [id number], INHALE 1 PUFF BY INHALATION ROUTE 2 TIMES EVERY DAY IN THE MORNING AND EV... Start Date: 02/25/15 Status: Ordered albuterol 2.5 mg/3 mL (0.083%) inhalation solution 3 mL, Inhalation, q6hr (scheduled), # 60 Each, 1 Refill(s), Pharmacy: [facility] [id number], 3 mL Inhalation q6hr (scheduled) Start Date: 02/13/15 Status: Ordered Atrovent 42 mcg/inh nasal spray 2 sprays, Nasal, TID, # 2 Each, 5 Refill(s), Pharmacy: [facility] [id number] Start Date: 06/11/15 Stop Date: 06/11/16 Status: Ordered Carafate 1 g oral tablet 1 g 1 tabs, Oral, QID, Dissolve in water and drink, # 40 tabs, 0 Refill(s) Start Date: 08/31/15 Status: Ordered cetirizine 10 mg oral tablet 10 mg 1 tabs, Oral, Daily, # 30 tabs, 5 Refill(s), Pharmacy: [facility] [id number], 1 tabs Oral Daily Start Date: 09/01/15 Status: Ordered levETIRAcetam 500 mg oral tablet See Instructions, TAKE 3 TABLETS BY MOUTH TWICE DAILY, # 180 tabs, 12 Refill(s) , eRx: [facility] [id number], TAKE 3 TABLETS BY MOUTH TWICE DAILY Start Date: 02/27/15 Status: Ordered Linzess 290 mcg oral capsule 1 caps, Oral, Daily, # 30 caps, 6 Refill(s), [id number], 1 caps Oral Daily Start Date: 02/24/15 Status: Ordered loratadine 10 mg oral tablet 10 mg, Oral, Daily, # 30 tabs, 5 Refill(s), Pharmacy: [facility] [id number] , 10 mg Oral Daily Start Date: [...] # 1 Each, 1 Refill(s), Pharmacy : [facility] [id number] Start Date: 06/11/15 Status: Ordered traZODone Oral, [...] Most recent to 1 oldest [Reference Range]: Sed Rate [0-23 29 mm/hr mm/hr] *HI* (03/20/15 9:57 AM) Chemistry Most recent to 1 oldest [Reference Range]: Sodium Lvl [136-144 140 mEq/L mEq/L] (03/20/15 9:57 AM) Potassium Lvl 3.9 mEq/L [3.6-5.1 mEq/L] (03/20/15 9:57 AM) Chloride [99-109 109 mEq/L mEq/L] (03/20/15 9:57 AM) CO2 [22-32 mEq/L] 24 mEq/L (03/20/15 9:57 AM) AGAP [3-20] 7 (03/20/15 9:57 AM) BUN [4-20 mg/dL] 10 mg/dL (03/20/15 9:57 AM) Glucose Lvl [70-100 113 mg/dL mg/dL] *HI* (03/20/15 9:57 AM) Creatinine Lvl 0.62 mg/dL [0.44-1.03 mg/dL] (03/20/15 9:57 AM) eGFR [>60] >60 1 (03/20/15 9:57 AM) Calcium Lvl 8.9 mg/dL [8.6-10.0 mg/dL] (03/20/15 9:57 AM) Troponin [<0.06 <0.05 ng/mL ng/mL] (03/20/15 9:57 AM) Screen, Negative Urine NPT (03/20/15 10:04 AM) 1Result Comment: Multiply eGFR results by 1.21 for race. Urinalysis Most recent to 1 oldest [Reference Range]: UA Color Yellow (03/20/15 9:58 AM) UA Appear Clear (03/20/15 9:58 AM) UA pH [5.0-8.0] 6.5 (03/20/15 9:58 AM) UA Leuk Est Pos 1+ [Negative] *ABN* (03/20/15 9:58 AM) UA Nitrite Negative [Negative] (03/20/15 9:58 AM) UA Protein Negative [Negative] (03/20/15 9:58 AM) UA Glucose Negative [Negative] (03/20/15 9:58 AM) UA Ketones Negative [Negative] (03/20/15 9:58 AM) UA Urobilinogen 1.0 mg/dL [<1.0 mg/dL] (03/20/15 9:58 AM) UA Bili [Negative] Negative (03/20/15 9:58 AM) UA Blood [Negative] Trace *ABN* (03/20/15 9:58 AM) UA Spec Grav 1.016 [1.003-1.030] (03/20/15 9:58 AM) Type Clean Catch (03/20/15 9:58 AM) UA WBC [0-4] 2-5 (03/20/15 9:58 AM) UA RBC [0-2] 0-2 (03/20/15 9:58 AM) Epithelial Cells 2-5 (03/20/15 9:58 AM) UA Bacteria Rare (03/20/15 9:58 AM) Immunizations Vaccine Date Refusal Reason pneumococcal 23-polyvalent vaccine 11/18/14 Procedures Procedure Date Related Diagnosis Body Site Esophagogastroduodenoscopy Balloon Dilat1 02/14/15 Examination Under Anesthesia2 02/14/15 Adenoidectomy Bilateral tubal ligation Bronchoscope Cardiac catheterization, combined right and left heart Tonsillectomy Tympanostomy [place] tooth 1auto-populated from documented surgical case 2auto-populated from documented surgical case Social History Social History Type Response Smoking Status Former smoker; Type: Cigarettes; Tobacco use per day: 1 Pack1 1quit 05/2015 Assessment and Plan No data available for this section
--- OUTSIDE RECORDS SUMMARY | 2017-01-20 22:04 | XMS REPORT | Referral Summary ---
Author Author [facility] Organization [facility] Address Unknown Phone Unavailable Care Team Providers Care Strand And Binder Controller Name Role Phone [facility] Primary Care Physician Unavailable Encounter [facility] [id number] Date(s): 07/11/15 - 07/11/[address] [facility] [address] [place], [place] [address] Discharge Diagnosis: Cough Discharge Diagnosis: Bronchitis Discharge Diagnosis: Chest wall pain Final: BRONCHITIS, NOT SPECIFIED ACUTE OR CHRONIC Final: PAINFUL RESPIRATION Discharge Disposition: 01-Home or Self Care Attending Physician: Vance Lei MD Admitting Physician: Vance Lei MD Referring Physician: Radha Martin MD Vital Signs Most recent to 1 oldest [Reference Range]: Temperature Oral 36.7 degC [35.8-37.3 degC] (07/11/15 2:42 PM) Peripheral Pulse 99 bpm Rate [60-100 bpm] (07/11/15 5:56 PM) Heart Rate Monitored 85 bpm [60-100 bpm] (07/11/15 4:42 PM) Respiratory Rate 18 br/min [14-20 br/min] (07/11/15 5:56 PM) Blood Pressure 119/77 mmHg [90-140/60-90 mmHg] (07/11/15 5:56 PM) SpO2 100 % (07/11/15 5:56 PM) Problem List Condition Effective Dates Status [...] pain, # 300 mL, 0 Refill(s), Pharmacy: [facility] [id number], 10 mL Oral q6hr,PRN:as needed for pain Start Date: 12/24/14 Status: Ordered Advair Diskus 250 mcg-50 mcg inhalation powder See Instructions, INHALE 1 PUFF BY INHALATION ROUTE 2 TIMES EVERY DAY IN THE MORNING AND EVENING APPROXIMATELY 12 HOURS APART, # 1 unknown unit, eRx: [facility] [id number], INHALE 1 PUFF BY INHALATION ROUTE 2 [...] Daily, # 30 tabs, 5 Refill(s), Pharmacy: [facility] [id number], 1 tabs Oral Daily Start Date: 09/01/15 [...] Date: 01/17/16 Stop Date: 01/21/16 Status: Ordered Flonase 50 mcg/inh nasal spray 2 sprays, Nasal, Daily, # 1 Each, 5 Refill(s), Pharmacy: [facility] [address] Start Date: 12/12/15 Status: Ordered ibuprofen 800 mg oral tablet 800 mg 1 tabs, Oral, TID, Pain, # 15 tabs, 0 Refill(s) Start Date: 12/07/15 Status: Ordered loratadine 10 mg oral tablet 10 mg, Oral, Daily, # 30 tabs, 5 Refill(s), Pharmacy: [facility] [id number] , 10 mg Oral Daily Start Date: 01/14/15 Status: Ordered meloxicam 15 mg oral tablet 15 mg 1 tabs, Oral, Daily, # 30 tabs, 0 Refill(s) Start Date: 12/12/15 Status: Ordered Mobic 7.5 mg oral tablet 7.5 mg 1 tabs, Oral, Daily, # 7 tabs, 0 Refill(s), Pharmacy: [facility], 1 tabs Oral Daily,x7 [...] # 1 Each, 1 Refill(s), Pharmacy : [facility] [id number] Start Date: 06/11/15 Status: Ordered Robitussin DM To Go 20 mg-200 mg/10 mL oral liquid 10 mL, Oral, q4hr, as needed for cough, # 100 mL, 0 Refill(s), Pharmacy: [facility] [address] Start Date: 12/12/15 Status: Ordered Vitamin D3 [...] combined right and left heart Tonsillectomy Tympanostomy [place] tooth 1auto-populated from documented surgical case 2auto-populated [...]
--- OUTSIDE RECORDS SUMMARY | 2017-01-20 22:04 | XMS REPORT | Referral Summary ---
Author Author [facility] Organization [facility] Address Unknown Phone Unavailable Care Team Providers Care First Responder Name Role Phone Imelda Martin Primary Care Physician [phone] Encounter [facility] Date(s): 02/17/15 - 02/17/15 [facility] [address] [address] [facility] Discharge Diagnosis: Asthma Discharge Disposition: 01-Home or [...] pain, # 300 mL, 0 Refill(s), Pharmacy: [facility] [id number], 10 mL Oral q6hr,PRN:as needed for pain Start Date: 12/24/14 Status: Ordered Advair Diskus 250 mcg-50 mcg inhalation powder See Instructions, INHALE 1 PUFF BY INHALATION ROUTE 2 TIMES EVERY DAY IN THE MORNING AND EVENING APPROXIMATELY 12 HOURS APART, # 1 unknown unit, eRx: [facility] [id number], INHALE 1 PUFF BY INHALATION ROUTE 2 TIMES EVERY DAY IN THE MORNING AND EV... Start Date: 02/25/15 Status: Ordered albuterol 2.5 mg/3 mL (0.083%) inhalation solution 3 mL, Inhalation, q6hr (scheduled), # 60 Each, 1 Refill(s), Pharmacy: [facility] 74684, 3 mL Inhalation q6hr (scheduled) Start Date: 02/13/15 Status: Ordered Atrovent 42 mcg/inh nasal spray 2 sprays, Nasal, TID, # 2 Each, 5 Refill(s), Pharmacy: [facility] [id number] Start Date: 06/11/15 Stop Date: 06/11/16 Status: Ordered Chloraseptic [place] 1.4% topical spray 5 sprays, Oral, q2hr, # 10 mL, 0 Refill(s) Start Date: 08/11/15 Stop Date: 08/11/16 Status: Ordered levETIRAcetam 500 mg oral tablet See Instructions, TAKE 3 TABLETS BY MOUTH TWICE DAILY, # 180 tabs, 12 Refill(s) , eRx: [facility] [id number], TAKE 3 TABLETS BY MOUTH TWICE DAILY Start Date: 02/27/15 Status: Ordered Levsin 0.125 mg oral tablet 0.125 mg 1 tabs, Oral, QID, # 15 tabs, 0 Refill(s) Start Date: 08/27/15 Status: Ordered Linzess 290 mcg oral capsule 1 caps, Oral, Daily, # 30 caps, 6 Refill(s), Pharmacy: [facility] 23596, 1 caps Oral Daily Start Date: 02/24/15 Status: Ordered loratadine 10 mg oral tablet 10 mg, Oral, Daily, # 30 tabs, 5 Refill(s), Pharmacy: [facility] [address] , 10 mg Oral Daily Start Date: [...] # 1 Each, 1 Refill(s), Pharmacy : [facility] [address] Start Date: 06/11/15 Status: Ordered traZODone Oral, [...] combined right and left heart Tonsillectomy Tympanostomy [place] tooth 1auto-populated from documented surgical case 2auto-populated from documented surgical case Social History Social History Type Response Smoking Status Former smoker; Type: Cigarettes; Tobacco use per day: 1 Pack1 1quit 05/2015 Assessment and Plan No data available for this section
--- OUTSIDE RECORDS SUMMARY | 2017-01-20 22:04 | XMS REPORT | Referral Summary ---
Author Author [facility] Organization [facility] Address Unknown Phone Unavailable Care Team Providers Care Bag Bundler Name Role Phone Nisha Colindres Primary Care Physician [phone] Encounter [facility] [id number] Date(s): 12/04/16 - 12/04/[address] [facility] [address] [place] [address] [phone] Discharge Diagnosis: Strain of right hip Discharge Disposition: 01-Home or Self Care Attending Physician: Vance Lei MD Admitting Physician: Vance Lei MD Vital Signs Most recent to 1 oldest [Reference Range]: Temperature Oral 36.3 degC [35.8-37.3 degC] (12/04/16 10:03 PM) Peripheral Pulse 66 bpm Rate [60-100 bpm] (12/04/16 10:03 PM) Respiratory Rate 16 br/min [14-20 br/min] (12/04/16 11:17 PM) Blood Pressure 119/83 mmHg [90-140/60-90 mmHg] (12/04/16 11:17 PM) SpO2 96 % (12/04/16 11:17 PM) Problem List Condition Effective Dates Status [...] 0 Refill(s) Start Date: 06/04/16 Status: Ordered cetirizine 10 mg oral tablet 10 mg 1 tabs, Oral, Daily, # 30 tabs, 6 Refill(s), Pharmacy: [facility] [address], 1 tabs Oral Daily Start Date: 11/12/16 Status: Ordered ibuprofen 600 mg oral tablet 600 mg 1 tabs, Oral, q8hr, # 20 tabs, 0 Refill(s) Start Date: 12/04/16 Status: Ordered Keppra 500 mg oral tablet [...] vaccine 11/18/14 Given rabies vaccine, human diploid cell 11/30/16 Given rabies vaccine, human diploid cell1 11/27/16 Given 1Early/Late Reason: Other : waiting for dose of immuneglob to be given Procedures Procedure Date Related Diagnosis Body Site Esophagogastroduodenoscopy - SN1 06/04/16 Esophagogastroduodenoscopy Foreign Body 01/06/16 Removal2 Procedure with Anesthesia3 01/06/16 Esophagogastroduodenoscopy Balloon Dilat4 02/14/15 Examination Under Anesthesia5 02/14/15 Adenoidectomy Bilateral tubal ligation Bronchoscope Cardiac catheterization, combined right and left heart Tonsillectomy Tympanostomy [place] tooth 1auto-populated from documented surgical case 2auto-populated from documented surgical case 3auto-populated from documented surgical case 4auto-populated from documented surgical case 5auto-populated from documented surgical case Social History Social History Type Response Smoking Status Current every day smoker; Type: Cigarettes; Tobacco use per day: 1 Pack Assessment and Plan No data available for this section
--- OUTSIDE RECORDS SUMMARY | 2017-01-20 22:04 | XMS REPORT | Referral Summary ---
Author Author [facility] Organization [facility] Address Unknown Phone Unavailable Care Team Providers Care Customer Experience Leader Name Role Phone [facility] Primary Care Physician Unavailable Encounter [facility] [id number] Date(s): 04/20/16 - 04/21/16 [facility] [address] [place] [address] [phone] Discharge Diagnosis: Seizure Discharge Disposition: 01-Home or Self Care Attending Physician: Issa Lazar DO Admitting Physician: Vance Lei MD Vital Signs Most recent to 1 oldest [Reference Range]: Temperature Oral 37.0 degC [35.8-37.3 degC] (04/20/16 9:39 PM) Peripheral Pulse 81 bpm Rate [60-100 bpm] (04/21/16 4:36 AM) Heart Rate Monitored 81 bpm [60-100 bpm] (04/21/16 4:30 AM) Respiratory Rate 20 br/min [14-20 br/min] (04/21/16 4:36 AM) Blood Pressure 90/70 mmHg [90-140/60-90 mmHg] (04/21/16 4:36 AM) Mean Arterial 77 mmHg Pressure, Cuff (04/21/16 4:30 AM) SpO2 100 % (04/21/16 4:36 AM) Problem List Condition Effective Dates Status [...] HOURS APART, # 1 unknown unit, eRx: [facility] [id number], INHALE 1 PUFF BY INHALATION ROUTE 2 TIMES EVERY DAY IN THE MORNING AND EV... Start Date: 02/25/15 Status: Ordered Carafate 1 g/10 mL oral suspension 10 mL, Oral, QIDACHS, # 280 mL, 0 Refill(s), Pharmacy: [facility], 10 mL Oral QIDACHS [...] Pharmacy : [facility] [address] Start Date: 06/11/15 Status: Ordered promethazine 25 [...] Range]: Sodium Venous 138 mEq/L [136-144 mEq/L] (04/21/16 2:32 AM) Potassium Venous 4.0 mEq/L 1 [3.6-5.1 mEq/L] (04/21/16 2:32 AM) Calcium Ionized 1.24 mmol/L Venous [1.19-1.41 (04/21/16 2:32 AM) mmol/L] Total CO2 Venous 24 mEq/L [25-29 mEq/L] *LOW* (04/21/16 2:32 AM) HGB Venous NPT 11.6 gm/dL [12.0-16.0 gm/dL] *LOW* (04/21/16 2:32 AM) HCT Venous 34.0 % [37.0-47.0 %] *LOW* (04/21/16 2:32 AM) Glucose Venous 95 mg/dL [70-100 mg/dL] (04/21/16 2:32 AM) BUN Venous [4-20] 8 (04/21/16 2:32 AM) Creatinine Venous 0.6 mg/dL [0.4-1.0 mg/dL] (04/21/16 2:32 AM) Venous CL [99-109 103 mEq/L mEq/L] (04/21/16 2:32 AM) Anion Gap, Darron 11 [3-20] (04/21/16 2:32 AM) U Beta hCG Ql Neg (04/21/16 2:33 AM) 1Result Comment: This test was performed on a whole blood specimen. The presence or absence of hemolysis cannot be assessed. Hemolysis can falsely elevate potassium levels. Normals are for venous specimens only. Toxicology Most recent to 1 oldest [Reference Range]: U Amphetamine Scrn Negative (04/21/16 2:25 AM) U Cocaine Scrn Negative (04/21/16 2:25 AM) U Cannab Scrn Negative (04/21/16 2:25 AM) U Opiate Scrn Negative (04/21/16 2:25 AM) U PCP Scrn Negative (04/21/16 2:25 AM) U Benzodiazepine Negative Scrn (04/21/16 2:25 AM) U Barbiturate Scrn Negative (04/21/16 2:25 AM) Methadone Lvl Negative (04/21/16 2:25 AM) Tricyclics Not Detected 1 (04/21/16 2:25 AM) 1Result Comment: Cut-off concentrations: Amphetamines: 1000 [...] 1 oldest [Reference Range]: UA Color Yellow (04/21/16 2:25 AM) UA Appear Cloudy *ABN* (04/21/16 2:25 AM) UA pH [5.0-8.0] 8.0 (04/21/16 2:25 AM) UA Leuk Est Trace [Negative] *ABN* (04/21/16 2:25 AM) UA Nitrite Negative [Negative] (04/21/16 2:25 AM) UA Protein Negative [Negative] (04/21/16 2:25 AM) UA Glucose Negative [Negative] (04/21/16 2:25 AM) UA Ketones Negative [Negative] (04/21/16 2:25 AM) UA Urobilinogen Negative [<1.0] (04/21/16 2:25 AM) UA Bili [Negative] Negative (04/21/16 2:25 AM) UA Blood [Negative] Negative (04/21/16 2:25 AM) UA Spec Grav 1.015 [1.003-1.030] (04/21/16 2:25 AM) Type Clean Catch (04/21/16 2:25 AM) UA WBC [0-4] 5-10 *ABN* (04/21/16 2:25 AM) UA RBC [0-2] 0-2 (04/21/16 2:25 AM) Epithelial Cells 0-2 (04/21/16 2:25 AM) UA Bacteria Rare (04/21/16 2:25 AM) Crystals Amorphous (04/21/16 2:25 AM) UA Mucous Present (04/21/16 2:25 AM) Immunizations Vaccine Date Refusal Reason pneumococcal 23-polyvalent vaccine 11/18/14 Procedures Procedure Date Related Diagnosis Body Site Esophagogastroduodenoscopy Foreign Body 01/06/16 Removal1 Procedure with Anesthesia2 01/06/16 Esophagogastroduodenoscopy Balloon Dilat3 02/14/15 Examination Under Anesthesia4 02/14/15 Adenoidectomy Bilateral tubal ligation Bronchoscope Cardiac catheterization, combined right and left heart Tonsillectomy Tympanostomy [place] tooth 1auto-populated from documented surgical case 2auto-populated [...]
--- OUTSIDE RECORDS SUMMARY | 2017-01-20 22:04 | XMS REPORT | Referral Summary ---
Author Author [facility] Organization [facility] Address Unknown Phone Unavailable Care Team Providers Care Composite Layup Worker Name Role Phone Imelda Martin Primary Care Physician [phone] Encounter VC Date(s): 03/15/15 - 03/15/15 [facility] [address] [facility] [place] [address] [phone] Discharge Diagnosis: Abdominal pain Discharge Diagnosis: Urinary tract infection, acute Final: URINARY TRACT INFECTION, SITE NOT SPECIFIED Discharge Disposition: 01-Home or Self Care Attending Physician: Milton Magaña MD Admitting Physician: Milton Magaña MD Vital Signs Most recent to 1 oldest [Reference Range]: Temperature Oral 36.8 degC [35.8-37.3 degC] (03/15/15 7:13 PM) Peripheral Pulse 91 bpm Rate [60-100 bpm] (03/15/15 6:57 PM) Heart Rate Monitored 94 bpm [60-100 bpm] (03/15/15 7:13 PM) Respiratory Rate 18 br/min [14-20 br/min] (03/15/15 6:57 PM) Blood Pressure 107/77 mmHg [90-140/60-90 mmHg] (03/15/15 7:13 PM) SpO2 98 % (03/15/15 7:13 PM) Problem List Condition Effective Dates Status [...] pain, # 300 mL, 0 Refill(s), Pharmacy: [facility] [id number], 10 mL Oral q6hr,PRN:as needed for pain Start Date: 12/24/14 Status: Ordered Advair Diskus 250 mcg-50 mcg inhalation powder See Instructions, INHALE 1 PUFF BY INHALATION ROUTE 2 TIMES EVERY DAY IN THE MORNING AND EVENING APPROXIMATELY 12 HOURS APART, # 1 unknown unit, eRx: [facility] [id number], INHALE 1 PUFF BY INHALATION ROUTE 2 TIMES EVERY DAY IN THE MORNING AND EV... Start Date: 02/25/15 Status: Ordered albuterol 2.5 mg/3 mL (0.083%) inhalation solution 3 mL, Inhalation, q6hr (scheduled), # 60 Each, 1 Refill(s), Pharmacy: [facility] [id number], 3 mL Inhalation q6hr (scheduled) Start Date: 02/13/15 Status: Ordered Atrovent 42 mcg/inh nasal spray 2 sprays, Nasal, TID, # 2 Each, 5 Refill(s), Pharmacy: [facility] [id number] Start Date: 06/11/15 Stop Date: 06/11/16 Status: Ordered Carafate 1 g oral tablet 1 g 1 tabs, Oral, QID, Dissolve in water and drink, # 40 tabs, 0 Refill(s) Start Date: 08/31/15 Status: Ordered cetirizine 10 mg oral tablet 10 mg 1 tabs, Oral, Daily, # 30 tabs, 5 Refill(s), Pharmacy: [facility] [id number], 1 tabs Oral Daily Start Date: 09/01/15 Status: Ordered levETIRAcetam 500 mg oral tablet See Instructions, TAKE 3 TABLETS BY MOUTH TWICE DAILY, # 180 tabs, 12 Refill(s) , eRx: [facility] [id number], TAKE 3 TABLETS BY MOUTH TWICE DAILY Start Date: 02/27/15 Status: Ordered Linzess 290 mcg oral capsule 1 caps, Oral, Daily, # 30 caps, 6 Refill(s), [id number], 1 caps Oral Daily Start Date: 02/24/15 Status: Ordered loratadine 10 mg oral tablet 10 mg, Oral, Daily, # 30 tabs, 5 Refill(s), [id number] , 10 mg Oral Daily Start Date: [...] # 1 Each, 1 Refill(s), Pharmacy : [facility] [id number] Start Date: 06/11/15 Status: Ordered traZODone Oral, [...] combined right and left heart Tonsillectomy Tympanostomy [place] tooth 1auto-populated from documented surgical case 2auto-populated from documented surgical case Social History Social History Type Response Smoking Status Former smoker; Type: Cigarettes; Tobacco use per day: 1 Pack1 1quit 05/2015 Assessment and Plan No data available for this section
--- OUTSIDE RECORDS SUMMARY | 2017-01-20 22:05 | XMS REPORT | Referral Summary ---
Author Author [facility] Organization [facility] Address Unknown Phone Unavailable Care Team Providers Care Puddler Helper Name Role Phone Imelda Martin Primary Care Physician [phone] Encounter VC Date(s): 08/15/15 - 08/15/15 [facility] [address] [place] [address] Discharge Diagnosis: Lumbar paraspinal muscle spasm Discharge Disposition: 01-Home or Self Care Attending Physician: Miguel Uriostegui MD Admitting Physician: Miguel Uriostegui MD Vital Signs Most recent to 1 oldest [Reference Range]: Temperature Oral 37 degC [35.8-37.3 degC] (08/15/15 12:08 PM) Peripheral Pulse 95 bpm Rate [60-100 bpm] (08/15/15 12:08 PM) Heart Rate Monitored 97 bpm [60-100 bpm] (08/15/15 2:00 PM) Respiratory Rate 20 br/min [14-20 br/min] (08/15/15 2:00 PM) Blood Pressure 106/85 mmHg [90-140/60-90 mmHg] (08/15/15 2:00 PM) SpO2 96 % (08/15/15 2:00 PM) Problem List Condition Effective Dates Status [...] pain, # 300 mL, 0 Refill(s), Pharmacy: [facility] [id number], 10 mL Oral q6hr,PRN:as needed for pain Start Date: 12/24/14 Status: Ordered Advair Diskus 250 mcg-50 mcg inhalation powder See Instructions, INHALE 1 PUFF BY INHALATION ROUTE 2 TIMES EVERY DAY IN THE MORNING AND EVENING APPROXIMATELY 12 HOURS APART, # 1 unknown unit, eRx: [facility] [id number], INHALE 1 PUFF BY INHALATION ROUTE 2 TIMES EVERY DAY IN THE MORNING AND EV... Start Date: 02/25/15 Status: Ordered albuterol 2.5 mg/3 mL (0.083%) inhalation solution 3 mL, Inhalation, q6hr (scheduled), # 60 Each, 1 Refill(s), Pharmacy: [facility] [id number], 3 mL Inhalation q6hr (scheduled) Start Date: 02/13/15 Status: Ordered Atrovent 42 mcg/inh nasal spray 2 sprays, Nasal, TID, # 2 Each, 5 Refill(s), Pharmacy: [facility] [id number] Start Date: 06/11/15 Stop Date: 06/11/16 Status: Ordered Chloraseptic Bowen 1.4% topical spray 5 sprays, Oral, q2hr, # 10 mL, 0 Refill(s) Start Date: 08/11/15 Stop Date: 08/11/16 Status: Ordered Keflex 500 mg oral capsule 500 mg 1 caps, Oral, q8hr, X 7 days, # 21 caps, 0 Refill(s), [facility] PH[employer] URIOSTEGUI Start Date: 08/11/15 Stop Date: 08/18/15 Status: Ordered levETIRAcetam 500 mg oral tablet See Instructions, TAKE 3 TABLETS BY MOUTH TWICE DAILY, # 180 tabs, 12 Refill(s) , [id number], TAKE 3 TABLETS BY MOUTH TWICE DAILY Start Date: 02/27/15 Status: Ordered Linzess 290 mcg oral capsule 1 caps, Oral, Daily, # 30 caps, 6 Refill(s), Pharmacy: [facility] [id number], 1 caps Oral Daily Start Date: 02/24/15 Status: Ordered loratadine 10 mg oral tablet 10 mg, Oral, Daily, # 30 tabs, 5 Refill(s), Pharmacy: [facility] [id number] , 10 mg Oral Daily Start Date: [...] # 1 Each, 1 Refill(s), Pharmacy : [facility] [id number] Start Date: 06/11/15 Status: Ordered traZODone Oral, [...] recent to 1 oldest [Reference Range]: U Beta hCG Ql Negative [Negative] (08/15/15 12:57 PM) Urinalysis Most recent to 1 oldest [Reference Range]: UA Color Lt Yellow (08/15/15 12:57 PM) UA Appear Clear (08/15/15 12:57 PM) UA pH [5.0-8.0] 7.0 (08/15/15 12:57 PM) UA Leuk Est Negative [Negative] (08/15/15 12:57 PM) UA Nitrite Negative [Negative] (08/15/15 12:57 PM) UA Protein Negative [Negative] (08/15/15 12:57 PM) UA Glucose Negative [Negative] (08/15/15 12:57 PM) UA Ketones Negative [Negative] (08/15/15 12:57 PM) UA Urobilinogen Negative [<1.0] (08/15/15 12:57 PM) UA Bili [Negative] Negative (08/15/15 12:57 PM) UA Blood [Negative] Trace *ABN* (08/15/15 12:57 PM) UA Spec Grav 1.020 [1.003-1.030] (08/15/15 12:57 PM) Type Clean Catch (08/15/15 12:57 PM) UA WBC [0-4] 0-2 (08/15/15 12:57 PM) UA RBC [0-2] 0-2 (08/15/15 12:57 PM) Epithelial Cells 0-2 (08/15/15 12:57 PM) UA Bacteria Occasional *ABN* (08/15/15 12:57 PM) UA Mucous Present (08/15/15 12:57 PM) Immunizations Vaccine Date Refusal Reason pneumococcal 23-polyvalent vaccine 11/18/14 Procedures Procedure Date Related Diagnosis Body Site Esophagogastroduodenoscopy Balloon Dilat1 02/14/15 Examination Under Anesthesia2 02/14/15 Adenoidectomy Bilateral tubal ligation Bronchoscope Cardiac catheterization, combined right and left heart Tonsillectomy Tympanostomy [place] tooth 1auto-populated from documented surgical case 2auto-populated from documented surgical case Social History Social History Type Response Smoking Status Former smoker; Type: Cigarettes; Tobacco use per day: 1 Pack1 1quit 05/2015 Assessment and Plan No data available for this section
--- OUTSIDE RECORDS SUMMARY | 2017-01-20 22:05 | XMS REPORT | Referral Summary ---
Author Author [facility] Organization [facility] Address Unknown Phone Unavailable Care Team Providers Care Trash Hauler Name Role Phone Imelda Martin Primary Care Physician [phone] Encounter VC Date(s): 07/16/15 - 07/16/[address] [facility] [address] [place], [place] [address] Discharge Diagnosis: Abdominal pain Discharge Diagnosis: Acute urinary tract infection Discharge Diagnosis: Anemia Discharge Diagnosis: Hernia, hiatal Discharge Disposition: -Home or Self Care Attending Physician: Vance Lei MD Admitting Physician: Vance Lei MD Vital Signs Most recent to 1 oldest [Reference Range]: Temperature Oral 36.6 degC [35.8-37.3 degC] (07/16/15 9:15 AM) Peripheral Pulse 99 bpm Rate [60-100 bpm] (07/16/15 9:15 AM) Heart Rate Monitored 67 bpm [60-100 bpm] (07/16/15 11:10 AM) Respiratory Rate 16 br/min [14-20 br/min] (07/16/15 11:10 AM) Blood Pressure 97/57 mmHg [90-140/60-90 mmHg] (07/16/15 11:10 AM) Mean Arterial 61 mmHg Pressure, Cuff (07/16/15 11:10 AM) SpO2 95 % (07/16/15 11:10 AM) Problem List Condition Effective Dates Status [...] pain, # 300 mL, 0 Refill(s), Pharmacy: [facility] [id number], 10 mL Oral q6hr,PRN:as needed for pain Start Date: 12/24/14 Status: Ordered Advair Diskus 250 mcg-50 mcg inhalation powder See Instructions, INHALE 1 PUFF BY INHALATION ROUTE 2 TIMES EVERY DAY IN THE MORNING AND EVENING APPROXIMATELY 12 HOURS APART, # 1 unknown unit, eRx: [facility] [id number], INHALE 1 PUFF BY INHALATION ROUTE 2 TIMES EVERY DAY IN THE MORNING AND EV... Start Date: 02/25/15 Status: Ordered albuterol 2.5 mg/3 mL (0.083%) inhalation solution 3 mL, Inhalation, q6hr (scheduled), # 60 Each, 1 Refill(s), Pharmacy: [facility] [id number], 3 mL Inhalation q6hr (scheduled) Start Date: 02/13/15 Status: Ordered Atrovent 42 mcg/inh nasal spray 2 sprays, Nasal, TID, # 2 Each, 5 Refill(s), Pharmacy: [facility] [id number] Start Date: 06/11/15 Stop Date: 06/11/16 Status: Ordered Cipro 500 mg oral tablet 500 mg 1 tabs, Oral, q12hr, X 4 days, # 8 tabs, 0 Refill(s) Start Date: 07/16/15 Stop Date: 07/20/15 Status: Ordered levETIRAcetam 500 mg oral tablet See Instructions, TAKE 3 TABLETS BY MOUTH TWICE DAILY, # 180 tabs, 12 Refill(s) , eRx: [facility] [id number], TAKE 3 TABLETS BY MOUTH TWICE DAILY Start Date: 02/27/15 Status: Ordered Linzess 290 mcg oral capsule 1 caps, Oral, Daily, # 30 caps, 6 Refill(s), Pharmacy: [facility] [address], 1 caps Oral Daily Start Date: 02/24/15 Status: Ordered loratadine 10 mg oral tablet 10 mg, Oral, Daily, # 30 tabs, 5 Refill(s), Pharmacy: [facility] [address] , 10 mg Oral Daily Start Date: [...] # 1 Each, 1 Refill(s), Pharmacy : [facility] [address] Start Date: 06/11/15 Status: Ordered traZODone Oral, 0 Refill(s) Start Date: 04/05/15 Status: Ordered Viibryd Oral, Daily, 0 Refill(s) Start Date: 04/05/15 Status: Ordered Vitamin D3 1,000 Intl_Units, Oral, Daily, 0 Refill(s) Start Date: 10/26/14 Status: Ordered Zithromax 250 mg oral tablet 1 packets, Oral, Once, as directed on package labeling, # 6 tabs, 0 Refill(s) Start Date: 07/09/15 Status: Ordered Zofran 4 mg oral tablet 4 mg 1 tabs, Oral, q6hr, Nausea or Vomiting | as needed for nausea/vomiting, X 3 days, # 12 tabs, 0 Refill(s) Start Date: 07/16/15 Stop Date: 07/19/15 Status: Ordered Zofran ODT 4 mg oral tablet, disintegrating 1 tabs, Oral, TID, as needed for nausea/vomiting, # 10 tabs, 0 Refill(s) Start Date: 11/21/14 Status: Ordered Results Hematology Most recent to 1 oldest [Reference Range]: WBC [4.8-10.8 9.0 10*3/uL 10*3/uL] (07/16/15 10:27 AM) RBC [4.00-5.20] 3.95 *LOW* (07/16/15 10:27 AM) Hgb [12.0-16.0 9.3 gm/dL gm/dL] *LOW* (07/16/15 10:27 AM) Hct [37.0-47.0 %] 31.4 % *LOW* (07/16/15 10:27 AM) MCV [82.0-99.0 fL] 79.5 fL *LOW* (07/16/15 10:27 AM) MCH [27.0-32.0 pg] 23.5 pg *LOW* (07/16/15 10:27 AM) MCHC [32.0-36.0 29.6 gm/dL gm/dL] *LOW* (07/16/15 10:27 AM) RDW [11.5-14.5 %] 17.7 % *HI* (07/16/15 10:27 AM) Platelet [150-400 229 10*3/uL 10*3/uL] (07/16/15 10:27 AM) MPV [9.4-12.4 fL] 9.6 fL (07/16/15 10:27 AM) Immature 0.2 % Granulocytes (07/16/15 10:27 AM) [0.0-1.0 %] Neutrophils [51-75 73 % %] (07/16/15 10:27 AM) Lymphocytes [20-46 20 % %] (07/16/15 10:27 AM) Monocytes [4-11 %] 7 % (07/16/15 10:27 AM) Eosinophils [0-4 %] 1 % (07/16/15 10:27 AM) Basophils [0-2 %] 0 % (07/16/15 10:27 AM) Neutro Absolute 6.53 10*3 [1.90-7.00 10*3] (07/16/15 10:27 AM) Lymph Absolute 1.76 10*3 [0.80-3.30 10*3] (07/16/15 10:27 AM) Dunn Absolute 0.59 10*3 [0.30-1.00 10*3] (07/16/15 10:27 AM) Eos Absolute 0.09 10*3 [0.00-0.50 10*3] (07/16/15 10:27 AM) Baso Absolute 0.02 10*3 [0.00-0.20 10*3] (07/16/15 10:27 AM) Hypochrom Occasional *ABN* (07/16/15: AM) Polychrom Occasional *ABN* (07/16/15: AM) Microcyte Present *ABN* (07/16/15 10: AM) Nucleated RBC 0.0 /100 WBC Automated [0 /100 (07/16/15 10: AM) WBC] Differential Scanned Slide (07/16/15 10: AM) Chemistry Most recent to 1 oldest [Reference Range]: Sodium Lvl [136-144 136 mEq/L mEq/L] (07/16/15: AM) Potassium Lvl 3.7 mEq/L [3.6-5.1 mEq/L] (07/16/15 10: AM) Chloride [99-109 103 mEq/L mEq/L] (07/16/15 10: AM) CO2 [22-32 mEq/L] 26 mEq/L (07/16/15 10: AM) AGAP [3-20] 7 (07/16/15 10: AM) BUN [4-20 mg/dL] 5 mg/dL (07/16/15 10: AM) Glucose Lvl [70-100 86 mg/dL mg/dL] (07/16/15 10: AM) Creatinine Lvl 0.63 mg/dL [0.44-1.03 mg/dL] (07/16/15 10: AM) eGFR [>60] >60 1 (07/16/15 10: AM) Calcium Lvl 8.7 mg/dL [8.6-10.0 mg/dL] (07/16/15 10:27 AM) Albumin Lvl [3.5-4.8 3.0 gm/dL gm/dL] *LOW* (07/16/15 10:27 AM) Total Protein 6.2 gm/dL [6.1-7.9 gm/dL] (07/16/15 10:27 AM) Globulin [1.9-4.3 3.2 gm/dL gm/dL] (07/16/15 10:27 AM) ALT [14-54 U/L] 11 U/L *LOW* (07/16/15 10:27 AM) AST [15-41 U/L] 17 U/L (07/16/15 10:27 AM) Alk Phos [26-104 71 U/L U/L] (07/16/15 10:27 AM) Bili Total [0.2-1.2 0.7 mg/dL 2 mg/dL] (07/16/15 10:27 AM) Lipase Lvl [8-48 17 U/L U/L] (07/16/15 10:27 AM) Screen, Negative Urine NPT (07/16/15 10:03 AM) 1Result Comment: Multiply eGFR results by 1.21 for race. 2Result Comment: Naproxen, specifically the metabolite O-desmethylnaproxen, may cause spurious elevation in Total Bilirubin levels. Urinalysis Most recent to 1 oldest [Reference Range]: UA Color Yellow (07/16/15 9:55 AM) UA Appear Clear (07/16/15 9:55 AM) UA pH [5.0-8.0] 7.0 (07/16/15 9:55 AM) UA Leuk Est Pos 1+ [Negative] *ABN* (07/16/15 9:55 AM) UA Nitrite Negative [Negative] (07/16/15 9:55 AM) UA Protein Negative [Negative] (07/16/15 9:55 AM) UA Glucose Negative [Negative] (07/16/15 9:55 AM) UA Ketones Negative [Negative] (07/16/15 9:55 AM) UA Urobilinogen Negative [<1.0] (07/16/15 9:55 AM) UA Bili [Negative] Negative (07/16/15 9:55 AM) UA Blood [Negative] Negative (07/16/15 9:55 AM) UA Spec Grav 1.018 [1.003-1.030] (07/16/15 9:55 AM) Type Clean Catch (07/16/15 9:55 AM) UA WBC [0-4] 5-10 *ABN* (07/16/15 9:55 AM) UA RBC [0-2] 2-5 (07/16/15 9:55 AM) Epithelial Cells 2-5 (07/16/15 9:55 AM) UA Bacteria Occasional *ABN* (07/16/15 9:55 AM) UA Mucous Present (07/16/15 9:55 AM) Immunizations Vaccine Date Refusal Reason pneumococcal 23-polyvalent vaccine 11/18/14 Procedures Procedure Date Related Diagnosis Body Site Esophagogastroduodenoscopy Balloon Dilat1 02/14/15 Examination Under Anesthesia2 02/14/15 Adenoidectomy Bilateral tubal ligation Bronchoscope Cardiac catheterization, combined right and left heart Tonsillectomy Tympanostomy [place] tooth 1auto-populated from documented surgical case 2auto-populated from documented surgical case Social History Social History Type Response Smoking Status Current every day smoker; Type: Cigarettes; Tobacco use per day: 1 Pack Assessment and Plan No data available for this section"
--- OUTSIDE RECORDS SUMMARY | 2017-01-20 22:05 | XMS REPORT | Referral Summary ---
Author Author [facility] Organization [facility] Address Unknown Phone Unavailable Care Team Providers Care Industrial Pharmacist Name Role Phone Imelda Martin Primary Care Physician [phone] Encounter VC Date(s): 06/05/15 - 06/05/[address] [facility] [address] [facility] [address] [address] Discharge Diagnosis: Shuddering spell Discharge Disposition: 01-Home or Self Care Attending Physician: Niranjan Thomas MD Admitting Physician: Niranjan Thomas MD Referring Physician: Gonzales Nash MD Vital Signs Most recent to 1 oldest [Reference Range]: Peripheral Pulse 87 bpm Rate [60-100 bpm] (06/05/15 1:57 PM) Blood Pressure 128/98 mmHg [90-140/60-90 mmHg] (06/05/15 1:57 PM) Problem List Condition Effective Dates Status [...] Tobacco Active patient user(Confirmed) UTI(Confirmed) 2009 Resolved Allergies, Adverse Reactions, Alerts Substance Reaction Severity Status omeprazole Turns red Medium Active Rash PriLOSEC OTC1 Rash Medium Active 1pt states she gets a rash from the medication. Medications acetaminophen 500 mg/5 mL oral liquid 10 mL, Oral, q6hr, as needed for pain, # 300 mL, 0 Refill(s), Pharmacy: [facility] [id number], 10 mL Oral q6hr,PRN:as needed for pain Start Date: 12/24/14 Status: Ordered Advair Diskus 250 mcg-50 mcg inhalation powder See Instructions, INHALE 1 PUFF BY INHALATION ROUTE 2 TIMES EVERY DAY IN THE MORNING AND EVENING APPROXIMATELY 12 HOURS APART, # 1 unknown unit, eRx: [facility] [id number], INHALE 1 PUFF BY INHALATION ROUTE 2 TIMES EVERY DAY IN THE MORNING AND EV... Start Date: 02/25/15 Status: Ordered albuterol 2.5 mg/3 mL (0.083%) inhalation solution 3 mL, Inhalation, q6hr (scheduled), # 60 Each, 1 Refill(s), Pharmacy: [facility] [id number], 3 mL Inhalation q6hr (scheduled) Start Date: 02/13/15 Status: Ordered Atrovent 42 mcg/inh nasal spray 2 sprays, Nasal, TID, # 2 Each, 5 Refill(s), Pharmacy: [facility] [id number] Start Date: 06/11/15 Stop Date: 06/11/16 Status: Ordered Chloraseptic Bowen 1.4% topical spray 5 sprays, Oral, q2hr, # 10 mL, 0 Refill(s) Start Date: 08/11/15 Stop Date: 08/11/16 Status: Ordered levETIRAcetam 500 mg oral tablet See Instructions, TAKE 3 TABLETS BY MOUTH TWICE DAILY, # 180 tabs, 12 Refill(s) , eRx: [facility] [id number], TAKE 3 TABLETS BY MOUTH TWICE DAILY Start Date: 02/27/15 Status: Ordered Linzess 290 mcg oral capsule 1 caps, Oral, Daily, # 30 caps, 6 Refill(s), Pharmacy: [facility] [id number], 1 caps Oral Daily Start Date: 02/24/15 Status: Ordered loratadine 10 mg oral tablet 10 mg, Oral, Daily, # 30 tabs, 5 Refill(s), Pharmacy: [facility] [id number] , 10 mg Oral Daily Start Date: [...] # 1 Each, 1 Refill(s), Pharmacy : [facility] [id number] Start Date: 06/11/15 Status: Ordered traZODone Oral, [...] combined right and left heart Tonsillectomy Tympanostomy [place] tooth 1auto-populated from documented surgical case 2auto-populated from documented surgical case Social History Social History Type Response Smoking Status Former smoker; Type: Cigarettes; Tobacco use per day: 1 Pack1 1quit 05/2015 Assessment and Plan No data available for this section
--- OUTSIDE RECORDS SUMMARY | 2017-01-20 22:05 | XMS REPORT | Referral Summary ---
Author Author Via [facility] Organization Via [facility] Address Unknown Phone Unavailable Care Team Providers Care Fleet Coordinator Name Role Phone Imelda Martin Primary Care Physician [phone] Encounter [facility] [id number] Date(s): 05/08/16 - 05/08/[address] [facility] [address], [place] [address] Discharge Diagnosis: Acute UTI Discharge Disposition: 01-Home or Self Care Attending Physician: Presley Frias MD Admitting Physician: Presley Frias MD Vital Signs Most recent to 1 oldest [Reference Range]: Temperature Oral 36.5 degC [35.8-37.3 degC] (05/08/16 4:41 PM) Peripheral Pulse 80 bpm Rate [60-100 bpm] (05/08/16 4:41 PM) Heart Rate Monitored 95 bpm [60-100 bpm] (05/08/16 6:30 PM) Respiratory Rate 16 br/min [14-20 br/min] (05/08/16 4:41 PM) Blood Pressure 95/48 mmHg [90-140/60-90 mmHg] (05/08/16 6:30 PM) Mean Arterial 65 mmHg Pressure, Cuff (05/08/16 6:30 PM) SpO2 99 % (05/08/16 6:30 PM) Problem List Condition Effective Dates [...] HOURS APART, # 1 unknown unit, eRx: [id number], INHALE 1 PUFF BY INHALATION ROUTE 2 TIMES EVERY DAY IN THE MORNING AND EV... Start Date: 02/25/15 Status: Ordered Carafate 1 g/10 mL oral suspension 10 mL, Oral, QIDACHS, # 280 mL, 0 Refill(s), Pharmacy: [facility], 10 mL Oral QIDACHS Start [...] # 10 caps, 0 Refill(s) Start Date: 05/08/16 Stop Date: 05/13/16 Status: Ordered ProAir HFA 90 mcg/inh inhalation aerosol See Instructions, 2-4 puffs every 4-6 hrs prn., # 1 Each, 1 Refill(s), Pharmacy : [id number] Start Date: 06/11/15 Status: Ordered promethazine 25 [...] Refill(s) Start Date: 03/19/16 Status: Ordered Results Hematology Most recent to 1 oldest [Reference Range]: WBC [4.8-10.8 7.2 10*3/uL 10*3/uL] (05/08/16 5:25 PM) RBC [4.00-5.20] 4.22 (05/08/16 5:25 PM) Hgb [12.0-16.0 10.2 gm/dL gm/dL] *LOW* (05/08/16 5:25 PM) Hct [37.0-47.0 %] 33.7 % *LOW* (05/08/16 5:25 PM) MCV [82.0-99.0 fL] 79.9 fL *LOW* (05/08/16 5:25 PM) MCH [27.0-32.0 pg] 24.2 pg *LOW* (05/08/16 5:25 PM) MCHC [32.0-36.0 30.3 gm/dL gm/dL] *LOW* (05/08/16 5:25 PM) RDW [11.5-14.5 %] 18.4 % *HI* (05/08/16 5:25 PM) Platelet [150-400 189 10*3/uL 10*3/uL] (05/08/16 5:25 PM) MPV [9.4-12.4 fL] 10.0 fL (05/08/16 5:25 PM) Immature 0.1 % Granulocytes (05/08/16 5:25 PM) [0.0-1.0 %] Neutrophils [51-75 66 % %] (05/08/16 5:25 PM) Lymphocytes [20-46 24 % %] (05/08/16 5:25 PM) Monocytes [4-11 %] 8 % (05/08/16 5:25 PM) Eosinophils [0-4 %] 2 % (05/08/16 5:25 PM) Basophils [0-2 %] 0 % (05/08/16 5:25 PM) Neutro Absolute 4.80 10*3 [1.90-7.00 10*3] (05/08/16 5:25 PM) Lymph Absolute 1.73 10*3 [0.80-3.30 10*3] (05/08/16 5:25 PM) Sabine Absolute 0.57 10*3 [0.30-1.00 10*3] (05/08/16 5:25 PM) Eos Absolute 0.12 10*3 [0.00-0.50 10*3] (05/08/16 5:25 PM) Baso Absolute 0.02 10*3 [0.00-0.20 10*3] (05/08/16 5:25 PM) Nucleated RBC 0.0 /100 WBC Automated [0 /100 (05/08/16 5:25 PM) WBC] Chemistry Most recent to 1 oldest [Reference Range]: Sodium Lvl [136-144 137 mEq/L mEq/L] (05/08/16 5:25 PM) Potassium Lvl 3.5 mEq/L [3.6-5.1 mEq/L] *LOW* (05/08/16 5:25 PM) Chloride [99-109 106 mEq/L mEq/L] (05/08/16 5:25 PM) CO2 [22-32 mEq/L] 21 mEq/L *LOW* (05/08/16 5:25 PM) AGAP [3-20] 10 (05/08/16 5:25 PM) BUN [4-20 mg/dL] 9 mg/dL (05/08/16 5:25 PM) Glucose Lvl [70-100 90 mg/dL mg/dL] (05/08/16 5:25 PM) Creatinine Lvl 0.69 mg/dL [0.44-1.03 mg/dL] (05/08/16 5:25 PM) eGFR [>60] >60 1 (05/08/16 5:25 PM) Calcium Lvl 8.8 mg/dL [8.6-10.0 mg/dL] (05/08/16 5:25 PM) Albumin Lvl [3.5-4.8 3.3 gm/dL gm/dL] *LOW* (05/08/16 5:25 PM) Total Protein 6.5 gm/dL [6.1-7.9 gm/dL] (05/08/16 5:25 PM) Globulin [1.9-4.3 3.2 gm/dL gm/dL] (05/08/16 5:25 PM) ALT [14-54 U/L] 11 U/L *LOW* (05/08/16 5:25 PM) AST [15-41 U/L] 13 U/L *LOW* (05/08/16 5:25 PM) Alk Phos [26-104 73 U/L U/L] (05/08/16 5:25 PM) Bili Total [0.2-1.2 0.7 mg/dL 2 mg/dL] (05/08/16 5:25 PM) Lipase Lvl [8-48 23 U/L U/L] (05/08/16 5:25 PM) Screen, Negative Urine NPT (05/08/16 5:33 PM) 1Result Comment: Multiply eGFR results by 1.21 for race. 2Result Comment: Naproxen, specifically the metabolite O-desmethylnaproxen, may cause spurious elevation in Total Bilirubin levels. Urinalysis Most recent to 1 oldest [Reference Range]: UA Color Adri *ABN* (05/08/16 5:00 PM) UA Appear Turbid *ABN* (05/08/16 5:00 PM) UA pH [5.0-8.0] 5.0 (05/08/16 5:00 PM) UA Leuk Est Pos 2+ [Negative] *ABN* (05/08/16 5:00 PM) UA Nitrite Negative [Negative] (05/08/16 5:00 PM) UA Protein Negative [Negative] (05/08/16 5:00 PM) UA Glucose Negative [Negative] (05/08/16 5:00 PM) UA Ketones Negative [Negative] (05/08/16 5:00 PM) UA Urobilinogen 2.0 mg/dL [<1.0 mg/dL] *ABN* (05/08/16 5:00 PM) UA Bili [Negative] Negative (05/08/16 5:00 PM) UA Blood [Negative] Pos 2+ *ABN* (05/08/16 5:00 PM) UA Spec Grav 1.035 [1.003-1.030] *ABN* (05/08/16 5:00 PM) Type Clean Catch (05/08/16 5:00 PM) UA WBC [0-4] 10-20 *ABN* (05/08/16 5:00 PM) UA RBC [0-2] 5-10 *ABN* (05/08/16 5:00 PM) Epithelial Cells 5-10 (05/08/16 5:00 PM) UA Bacteria Rare (05/08/16 5:00 PM) Crystals Ca Ox (05/08/16 5:00 PM) UA Mucous Present (05/08/16 5:00 PM) Immunizations Vaccine Date Refusal Reason pneumococcal 23-polyvalent vaccine 11/18/14 Procedures Procedure Date Related Diagnosis Body Site Esophagogastroduodenoscopy Foreign Body 01/06/16 Removal1 Procedure with Anesthesia2 01/06/16 Esophagogastroduodenoscopy Balloon Dilat3 02/14/15 Examination Under Anesthesia4 02/14/15 Adenoidectomy Bilateral tubal ligation Bronchoscope Cardiac catheterization, combined right and left heart Tonsillectomy Tympanostomy [place] tooth 1auto-populated from documented surgical case 2auto-populated from documented surgical case 3auto-populated from documented surgical case 4auto-populated from documented surgical case Social History Social History Type Response Smoking Status Never smoker Assessment and Plan No data available for this section
--- OUTSIDE RECORDS SUMMARY | 2017-01-20 22:05 | XMS REPORT | Referral Summary ---
Author Author Via [facility] Organization Via [facility] Address Unknown Phone Unavailable Care Team Providers Care Restaurant Recruiter Name Role Phone [facility] Primary Care Physician Unavailable Encounter [facility] [id number] Date(s): 12/17/15 - 12/17/15 Via [facility] [address] [place] [address] [phone] Discharge Diagnosis: Back muscle spasm Discharge Disposition: 01-Home or Self Care Attending Physician: Vance Lei MD Admitting Physician: Vance Lei MD Vital Signs Most recent to 1 oldest [Reference Range]: Temperature Oral 36.4 degC [35.8-37.3 degC] (12/17/15 3:05 AM) Peripheral Pulse 71 bpm Rate [60-100 bpm] (12/17/15 4:45 AM) Respiratory Rate 20 br/min [14-20 br/min] (12/17/15 4:45 AM) Blood Pressure 116/84 mmHg [90-140/60-90 mmHg] (12/17/15 4:45 AM) SpO2 98 % (12/17/15 4:45 AM) Problem List Condition Effective Dates Status [...] obesity(Confirmed) Morbid Active patient obesity(Confirmed) L CN 1/14/14 Active Palsy(Confirmed) Seizure Active disorder(Confirmed) Severe major [...] pain, # 300 mL, 0 Refill(s), Pharmacy: [id number], 10 mL Oral q6hr,PRN:as needed for pain Start Date: 12/24/14 Status: Ordered Advair Diskus 250 mcg-50 mcg inhalation powder See Instructions, INHALE 1 PUFF BY INHALATION ROUTE 2 TIMES EVERY DAY IN THE MORNING AND EVENING APPROXIMATELY 12 HOURS APART, # 1 unknown unit, eRx: [id number], INHALE 1 PUFF BY INHALATION ROUTE 2 TIMES EVERY DAY IN THE MORNING AND EV... Start Date: 02/25/15 Status: Ordered Carafate 1 g oral tablet 1 g 1 tabs, Oral, QID, Dissolve in water and drink, # 40 tabs, 0 Refill(s) Start Date: 08/31/15 Status: Ordered cetirizine 10 mg oral tablet 10 mg 1 tabs, Oral, Daily, # 30 tabs, 5 Refill(s), Pharmacy: [facility] [id number], 1 tabs Oral Daily Start Date: 09/01/15 Status: Ordered cyclobenzaprine 10 mg oral tablet 10 mg 1 tabs, Oral, TID, as needed for spasm, X 3 days, # 9 tabs, 0 Refill(s) Start Date: 12/17/15 Stop Date: 12/20/15 Status: Ordered Flonase 50 mcg/inh nasal spray 2 sprays, Nasal, Daily, # 1 Each, 5 Refill(s), Pharmacy: [facility] [id number] Start Date: 12/12/15 Status: Ordered ibuprofen 800 mg oral tablet 800 mg 1 tabs, Oral, TID, Pain, # 15 tabs, 0 Refill(s) Start Date: 12/07/15 Status: Ordered loratadine 10 mg oral tablet 10 mg, Oral, Daily, # 30 tabs, 5 Refill(s), Pharmacy: [facility] [id number] , 10 mg Oral Daily Start Date: 01/14/15 Status: Ordered meloxicam 15 mg oral tablet 15 mg 1 tabs, Oral, Daily, # 30 tabs, 0 Refill(s) Start Date: 12/12/15 Status: Ordered Naprosyn 500 mg oral tablet 500 mg 1 tabs, Oral, BID, # 10 tabs, 0 Refill(s) Start Date: 12/17/15 Stop Date: 12/22/15 Status: Ordered ondansetron 4 mg oral tablet [...] # 1 Each, 1 Refill(s), Pharmacy : [facility] [id number] Start Date: 06/11/15 Status: Ordered Robitussin DM To Go 20 mg-200 mg/10 mL oral liquid 10 mL, Oral, q4hr, as needed for cough, # 100 mL, 0 Refill(s), Pharm[facility]: [email or web address] [address] Start Date: 12/12/15 Status: Ordered traZODone Oral, 0 Refill(s) Start Date: 04/05/15 Status: Ordered Viibryd Oral, Daily, 0 Refill(s) Start Date: 04/05/15 Status: Ordered Vitamin D3 1,000 Intl_Units, Oral, Daily, 0 Refill(s) Start Date: 10/26/14 Status: Ordered Results Chemistry Most recent to 1 oldest [Reference Range]: U Beta hCG Ql Neg (12/17/15 4:01 AM) Urinalysis Most recent to 1 oldest [Reference Range]: UA Color Yellow (12/17/15 3:50 AM) UA Appear Clear (12/17/15 3:50 AM) UA pH [5.0-8.0] 6.0 (12/17/15 3:50 AM) UA Leuk Est Negative [Negative] (12/17/15 3:50 AM) UA Nitrite Negative [Negative] (12/17/15 3:50 AM) UA Protein Negative [Negative] (12/17/15 3:50 AM) UA Glucose Negative [Negative] (12/17/15 3:50 AM) UA Ketones Negative [Negative] (12/17/15 3:50 AM) UA Urobilinogen Negative [<1.0] (12/17/15 3:50 AM) UA Bili [Negative] Negative (12/17/15 3:50 AM) UA Blood [Negative] Negative (12/17/15 3:50 AM) UA Spec Grav 1.015 [1.003-1.030] (12/17/15 3:50 AM) Type Clean Catch (12/17/15 3:50 AM) Immunizations Vaccine Date Refusal Reason pneumococcal 23-polyvalent vaccine 11/18/14 Procedures Procedure Date Related Diagnosis Body Site Esophagogastroduodenoscopy Balloon Dilat1 02/14/15 Examination Under Anesthesia2 02/14/15 Adenoidectomy Bilateral tubal ligation Bronchoscope Cardiac catheterization, combined right and left heart Tonsillectomy Tympanostomy [place] tooth 1auto-populated from documented surgical case 2auto-populated from documented surgical case Social History Social History Type Response Smoking Status Former smoker; Type: Cigarettes Assessment and Plan No data available for this section
--- OUTSIDE RECORDS SUMMARY | 2017-01-20 22:05 | XMS REPORT ---
Author Author GENERATED, SYSTEM Organization Unknown Address Unknown Phone Unavailable Care Team Providers Care Electricity Trader Name Role Phone UNASSIGNED DOCTOR , DOCTOR PP [phone] Reason For Visit Chief Complaint STOMACH PAIN Social History Functional Status Vital Signs Results Chemistry from 02/16/2016 6:33 PMSODIUM 138 MMOL/L (136-145 MMOL/L) POTASSIUM 3.9 MMOL/L (3.5-5.1 MMOL/L) CHLORIDE 103 MMOL/L (98-107 MMOL/L) TCO2 27.9 MMOL/L (21.0-32.0 MMOL/L) *ANION GAP 7.1 MMOL/L L (8.0-16.0 MMOL/L) BUN 13 MG/DL (7-18 MG/DL) CREATININE 0.77 MG/DL (0.55-1.02 MG/DL) *BUN/CREATININE RATIO 16.9 (9.1-17.0 ) GLUCOSE 83 MG/DL (65-99 MG/DL) *GFR EST NON AFR BAHRAINI >90 ML/MIN *GFRA EST AFR AMER >90 ML/MIN CALCIUM 9.1 MG/DL (8.5-10.1 MG/DL) BILIRUBIN TOTAL 0.60 MG/DL (0.20-1.00 MG/DL) TOTAL PROTEIN 7.4 GM/DL (6.4-8.2 GM/DL) ALBUMIN 3.3 GM/DL L (3.4-5.0 GM/DL) *GLOBULIN 4.1 GM/DL H (2.3-3.5 GM/DL) *A/G RATIO 0.8 MG/DL L (1.5-2.2 MG/DL) ALK PHOS 99 U/L (46-116 U/L) ALT (SGPT) 19 U/L (16-63 U/L) AST (SGOT) 10 U/L L (15-37 U/L) LIPASE 112 U/L (73-393 U/L) TEST NEGATIVE (NEGATIVE ) Hematology from 02/16/2016 6:33 PMWBC 8.2 X10e3/UL (3.6-11.2 X10e3/UL) RBC 4.57 X10e6/UL (3.63-4.92 X10e6/UL) HEMOGLOBIN 11.0 G/DL (11.0-14.3 G/DL) HEMATOCRIT 34.6 % (31.2-41.9 %) *MCV 75.8 FL L (79.0-98.0 FL) *MCH 24.1 PG L (27.0-33.0 PG) *MCHC 31.8 G/DL L (32.0-36.0 G/DL) *RDW 17.3 % H (12.3-17.0 %) PLATELET 236 X10e3/UL (159-386 X10e3/UL) *MPV 7.3 FL L (7.4-10.4 FL) AUTOMATED DIFF PERFORMED SEGS 76.9 % *LYMPHOCYTES 16.6 % *MONOCYTES 5.1 % *EOSINOPHILS 0.8 % *BASOPHILS 0.6 % *ABSOLUTE NEUTROPHILS 6.30 X10e3/UL (1.80-7.80 X10e3/UL) *ABSOLUTE LYMPHOCYTES 1.40 X10e3/UL (1.00-3.00 X10e3/UL) *ABSOLUTE MONOCYTES 0.40 X10e3/UL (0.30-1.00 X10e3/UL) *ABSOLUTE EOSINOPHILS 0.10 X10e3/UL (0.00-0.50 X10e3/UL) *ABSOLUTE BASOPHILS 0.00 X10e3/UL (0.00-0.20 X10e3/UL) *POLYCHROMASIA 1+ MICROCYTIC 2+ STOMATOCYTES 1+ Urinalysis from 02/16/2016 7:49 PM*URINE COLOR YELLOW (STRAW/YELL/DK YELL ) *URINE APPEARANCE CLEAR (CLEAR ) URINE PH 5.5 (5.0-8.0 ) URINE SPECIFIC GRAVITY 1.025 (<=1.005->=1.030 ) *URINE GLUCOSE NEGATIVE MG/DL (NEGATIVE MG/DL) *URINE BILIRUBIN NEGATIVE (NEGATIVE ) *URINE KETONES NEGATIVE MG/DL (NEGATIVE MG/DL) *URINE BLOOD TRACE-INTACT A (NEGATIVE ) *URINE PROTEIN NEGATIVE MG/DL (NEGATIVE MG/DL) *URINE UROBILINOGEN 0.2 EU/DL (0.2-1.0 EU/DL) *URINE NITRITES NEGATIVE (NEGATIVE ) *URINE LEUKOCYTES SMALL A (NEGATIVE ) *MICROSCOPIC EXAM PERFORMED PERFORMED *WBC URINE 1-5 /HPF (0-5 /HPF) *RBC URINE 0-1 /HPF (0-1 /HPF) *SQUAMOUS EP. CELLS MODERATE /LPF A (NEG-FEW /LPF) *MUCOUS THREADS FEW /LPF A (NEGATIVE /LPF) *SPERM FEW /HPF A (NEGATIVE /HPF) Microbiology from 02/16/2016 7:49 PM* CULTURE URINE (Preliminary Result) Specimen Number: [id number] Sample Collection Date/Time: 02/16/2016 7:49 PM Specimen Source: Urine Clean Catch CULTURE URINE: No growth CT Scan from 02/16/2016 7:54 PMCT ABD/PELVIS W/CONTRAST History: abd pain . Technique: Post contrast images were performed after the administration of 95 milliliters of Isovue intravenous contrast. Priors: 05/08/15 Findings: Abdomen Lung bases: Minimal dependent atelectasis. Liver: Normal density. No definable mass. Spleen: Normal. Pancreas: No discrete mass or inflammatory process. Gallbladder and biliary tract: No radiodense calculus or dilation. Adrenal glands: Normal. Kidneys: Normal enhancement. No masses. No radiodense stones or hydronephrosis. Urinary Bladder: Normal. Aorta: Normal in caliber. No periaortic lymphadenopathy. Bowel and Mesentery: There is a large hiatal hernia with the majority the stomach in the lower mediastinum. This is similar to the prior study. A short segment of unremarkable appearing colon is also herniated within the hiatal hernia. No findings of appendicitis. Ascites: None. Pelvis Lymphadenopathy: None. Reproductive: Unremarkable. Osseous Structures: No suspicious findings. Impression: Large hiatal hernia. A short segment of unremarkable appearing colon is also herniated within the hiatal hernia. The study is otherwise unremarkable. Electronically signed by: Jairo Thibodeaux MD Dictated: 02/17/2016 08:35 Problems Encounter Diagnosis No relevant problems exist. [...]
--- OUTSIDE RECORDS SUMMARY | 2017-01-20 22:05 | XMS REPORT | Referral Summary ---
Author Author [facility] Organization [facility] Address Unknown Phone Unavailable Care Team Providers Care Aviation Mechanic Name Role Phone Imelda Martin Primary Care Physician [phone] Encounter [facility] Date(s): 02/21/15 - 02/21/15 [facility] [address] [place] [place], [place] [address] Discharge Diagnosis: Chronic abdominal pain Final: ABDOMINAL PAIN, UNSPECIFIED SITE Final: Other chronic pain Final: DIAPHRAGMATIC HERNIA WITHOUT MENTION OF OBSTRUCTION OR GANGRENE Discharge Disposition: 01-Home or Self Care Attending Physician: Chris Harris MD Admitting Physician: Chris Harris MD Vital Signs Most recent to 1 oldest [Reference Range]: Temperature Oral 36.5 degC [35.8-37.3 degC] (02/21/15 9:42 PM) Peripheral Pulse 87 bpm Rate [60-100 bpm] (02/21/15 9:42 PM) Heart Rate Monitored 86 bpm [60-100 bpm] (02/21/15 9:26 PM) Respiratory Rate 14 br/min [14-20 br/min] (02/21/15 9:42 PM) Blood Pressure 118/76 mmHg [90-140/60-90 mmHg] (02/21/15 9:42 PM) Mean Arterial 90 mmHg Pressure, Cuff (02/21/15 9:26 PM) SpO2 94 % (02/21/15 9:26 PM) Problem List Condition Effective Dates Status [...] pain, # 300 mL, 0 Refill(s), Pharmacy: [facility] [id number], 10 mL Oral q6hr,PRN:as needed for pain Start Date: 12/24/14 Status: Ordered Advair Diskus 250 mcg-50 mcg inhalation powder See Instructions, INHALE 1 PUFF BY INHALATION ROUTE 2 TIMES EVERY DAY IN THE MORNING AND EVENING APPROXIMATELY 12 HOURS APART, # 1 unknown unit, eRx: [facility] [id number], INHALE 1 PUFF BY INHALATION ROUTE 2 TIMES EVERY DAY IN THE MORNING AND EV... Start Date: 02/25/15 Status: Ordered albuterol 2.5 mg/3 mL (0.083%) inhalation solution 3 mL, Inhalation, q6hr (scheduled), # 60 Each, 1 Refill(s), Pharmacy: [facility] [id number], 3 mL Inhalation q6hr (scheduled) Start Date: 02/13/15 Status: Ordered Atrovent 42 mcg/inh nasal spray 2 sprays, Nasal, TID, # 2 Each, 5 Refill(s), Pharmacy: [facility] [id number] Start Date: 06/11/15 Stop Date: 06/11/16 Status: Ordered Carafate 1 g oral tablet 1 g 1 tabs, Oral, QID, Dissolve in water and drink, # 40 tabs, 0 Refill(s) Start Date: 08/31/15 Status: Ordered cetirizine 10 mg oral tablet 10 mg 1 tabs, Oral, Daily, # 30 tabs, 5 Refill(s), Pharmacy: [facility] [id number], 1 tabs Oral Daily Start Date: 09/01/15 Status: Ordered Chloraseptic [place] 1.4% topical spray 5 sprays, Oral, q2hr, # 10 mL, 0 Refill(s) Start Date: 08/11/15 Stop Date: 08/11/16 Status: Ordered levETIRAcetam 500 mg oral tablet See Instructions, TAKE 3 TABLETS BY MOUTH TWICE DAILY, # 180 tabs, 12 Refill(s) , eRx: [facility] [id number], TAKE 3 TABLETS BY MOUTH TWICE DAILY Start Date: 02/27/15 Status: Ordered Levsin 0.125 mg oral tablet 0.125 mg 1 tabs, Oral, QID, # 15 tabs, 0 Refill(s) Start Date: 08/27/15 Status: Ordered Linzess 290 mcg oral capsule 1 caps, Oral, Daily, # 30 caps, 6 Refill(s), Pharmacy: [facility], 1 caps Oral Daily Start Date: 02/24/15 Status: Ordered loratadine 10 mg oral tablet 10 mg, Oral, Daily, # 30 tabs, 5 Refill(s), Pharmacy: [facility] [id number] , 10 mg Oral Daily Start Date: [...] # 1 Each, 1 Refill(s), Pharmacy : [facility] [address] Start Date: 06/11/15 Status: Ordered traZODone Oral, [...] [Reference Range]: WBC [4.8-10.8 9.0 10*3/uL 10*3/uL] (02/21/15 7:42 PM) RBC [4.00-5.20 4.37 10*6/uL 10*6/uL] (02/21/15 7:42 PM) Hgb [12.0-16.0 12.1 gm/dL gm/dL] (02/21/15 7:42 PM) Hct [37.0-47.0 %] 38.3 % (02/21/15 7:42 PM) MCV [82.0-99.0 fL] 87.6 fL (02/21/15 7:42 PM) MCH [27.0-32.0 pg] 27.7 pg (02/21/15 7:42 PM) MCHC [32.0-36.0 31.6 gm/dL gm/dL] *LOW* (02/21/15 7:42 PM) RDW [11.5-14.5 %] 16.3 % *HI* (02/21/15 7:42 PM) Platelet [150-400 265 10*3/uL 10*3/uL] (02/21/15 7:42 PM) MPV [9.4-12.4 fL] 9.2 fL *LOW* (02/21/15 7:42 PM) Immature 0.2 % Granulocytes (02/21/15:42 PM) [0.0-1.0 %] Neutrophils [51-75 70 % %] (02/21/15:42 PM) Lymphocytes [20-46 22 % %] (02/21/15:42 PM) Monocytes [4-11 %] 6 % (02/21/15:42 PM) Eosinophils [0-4 %] 1 % (02/21/15 PM) Basophils [0-2 %] 0 % (02/21/15:42 PM) Neutro Absolute 6.31 10*3 [1.90-7.00 10*3] (02/21/15:42 PM) Lymph Absolute 2.00 10*3 [0.80-3.30 10*3] (02/21/15:42 PM) [place] Absolute 0.52 10*3 [0.30-1.00 10*3] (02/21/15:42 PM) Eos Absolute 0.11 10*3 [0.00-0.50 10*3] (02/21/15:42 PM) Baso Absolute 0.02 10*3 [0.00-0.20 10*3] (02/21/15:42 PM) Chemistry Most recent to 1 oldest [Reference Range]: Sodium Lvl [136-144 136 mEq/L mEq/L] (02/21/15:42 PM) Potassium Lvl 3.7 mEq/L [3.6-5.1 mEq/L] (02/21/15:42 PM) Chloride [99-109 104 mEq/L mEq/L] (02/21/15:42 PM) CO2 [22-32 mEq/L] 25 mEq/L (02/21/15:42 PM) AGAP [3-20] 7 (02/21/15:42 PM) BUN [4-20 mg/dL] 5 mg/dL (02/21/15 7:42 PM) Glucose Lvl [70-100 79 mg/dL mg/dL] (02/21/15 7:42 PM) Creatinine Lvl 0.66 mg/dL [0.44-1.03 mg/dL] (02/21/15 7:42 PM) eGFR [>60] >60 1 (02/21/15 7:42 PM) Calcium Lvl 8.9 mg/dL [8.6-10.0 mg/dL] (02/21/15 7:42 PM) Albumin Lvl [3.5-4.8 3.5 gm/dL gm/dL] (02/21/15 7:42 PM) Total Protein 7.6 gm/dL [6.1-7.9 gm/dL] (02/21/15 7:42 PM) Globulin [1.9-4.3 4.1 gm/dL gm/dL] (02/21/15 7:42 PM) ALT [14-54 U/L] 13 U/L *LOW* (02/21/15 7:42 PM) AST [15-41 U/L] 14 U/L *LOW* (02/21/15 7:42 PM) Alk Phos [26-104 89 U/L U/L] (02/21/15 7:42 PM) Bili Total [0.2-1.2 0.8 mg/dL 2 mg/dL] (02/21/15 7:42 PM) Lipase Lvl [8-48 20 U/L U/L] (02/21/15 7:42 PM) Sodium Venous 137 mEq/L [136-144 mEq/L] (02/21/15 6:35 PM) Potassium Venous 5.5 mEq/L 3 [3.6-5.1 mEq/L] *HI* (02/21/15 6:35 PM) Calcium Ionized 1.07 mmol/L Venous [1.19-1.41 *LOW* mmol/L] (02/21/15 6:35 PM) Total CO2 Venous 21 mEq/L [25-29 mEq/L] *LOW* (02/21/15 6:35 PM) HGB Venous NPT 14.3 gm/dL [12.0-16.0 gm/dL] (02/21/15 6:35 PM) HCT Venous 42.0 % [37.0-47.0 %] (02/21/15 6:35 PM) Glucose Venous 74 mg/dL [70-100 mg/dL] (02/21/15 6:35 PM) BUN Venous [4-20] 5 (02/21/15 6:35 PM) Creatinine Venous 0.6 mg/dL [0.4-1.0 mg/dL] (02/21/15 6:35 PM) Venous CL [99-109 106 mEq/L mEq/L] (02/21/15 6:35 PM) Anion Gap, Dar[place] 10 [3-20] (02/21/15 6:35 PM) Screen, Negative Urine NPT (02/21/15 6:34 PM) 1Result Comment: Multiply eGFR results by 1.21 for race. 2Result Comment: Naproxen, specifically the metabolite O-desmethylnaproxen, may cause spurious elevation in Total Bilirubin levels. 3Result Comment: This test was performed on a whole blood specimen. The presence or absence of hemolysis cannot be assessed. Hemolysis can falsely elevate potassium levels. Normals are for venous specimens only. Urinalysis Most recent to 1 oldest [Reference Range]: UA Color Lt Yellow (02/21/15 6:28 PM) UA Appear Clear (02/21/15 6:28 PM) UA pH [5.0-8.0] 7.0 (02/21/15 6:28 PM) UA Leuk Est Negative [Negative] (02/21/15 6:28 PM) UA Nitrite Negative [Negative] (02/21/15 6:28 PM) UA Protein Negative [Negative] (02/21/15 6:28 PM) UA Glucose Negative [Negative] (02/21/15 6:28 PM) UA Ketones Negative [Negative] (02/21/15 6:28 PM) UA Urobilinogen Negative [<1.0] (02/21/15 6:28 PM) UA Bili [Negative] Negative (02/21/15 6:28 PM) UA Blood [Negative] Trace *ABN* (02/21/15 6:28 PM) UA Spec Grav 1.021 [1.003-1.030] (02/21/15 6:28 PM) Type Voided (02/21/15 6:28 PM) UA WBC [0-4] 2-5 (02/21/15 6:28 PM) UA RBC [0-2] 2-5 (02/21/15 6:28 PM) Epithelial Cells 5-10 (02/21/15 6:28 PM) UA Bacteria Rare (02/21/15 6:28 PM) UA Mucous Present (02/21/15 6:28 PM) Immunizations Vaccine Date Refusal Reason pneumococcal 23-polyvalent vaccine 11/18/14 Procedures Procedure Date Related Diagnosis Body Site Esophagogastroduodenoscopy Balloon Dilat1 02/14/15 Examination Under Anesthesia2 02/14/15 Adenoidectomy Bilateral tubal ligation Bronchoscope Cardiac catheterization, combined right and left heart Tonsillectomy Tympanostomy [place] tooth 1auto-populated from documented surgical case 2auto-populated from documented surgical case Social History Social History Type Response Smoking Status Former smoker; Type: Cigarettes; Tobacco use per day: 1 Pack1 1quit 05/2015 Assessment and Plan No data available for this section
--- OUTSIDE RECORDS SUMMARY | 2017-01-20 22:05 | XMS REPORT | Referral Summary ---
Author Author [facility] Organization [facility] Address Unknown Phone Unavailable Care Team Providers Care Paperboard Machine Operator Name Role Phone Imelda Martin Primary Care Physician [phone] Encounter [facility] [id number] Date(s): 04/30/16 - 04/30/16 [facility] [address] [place] [address] Discharge Diagnosis: Chest wall pain Discharge Disposition: 01-Home or Self Care Attending Physician: Vance Lei MD Admitting Physician: Vance Lei MD Vital Signs Most recent to 1 oldest [Reference Range]: Temperature Oral 36.8 degC [35.8-37.3 degC] (04/30/16 12:36 PM) Peripheral Pulse 78 bpm Rate [60-100 bpm] (04/30/16 1:39 PM) Respiratory Rate 16 br/min [14-20 br/min] (04/30/16 1:39 PM) Blood Pressure 118/88 mmHg [90-140/60-90 mmHg] (04/30/16 1:39 PM) SpO2 98 % (04/30/16 1:39 PM) Problem List Condition Effective Dates Status [...] HOURS APART, # 1 unknown unit, eRx: [facility] [id number], INHALE 1 PUFF BY INHALATION ROUTE 2 TIMES EVERY DAY IN THE MORNING AND EV... Start Date: 02/25/15 Status: Ordered Carafate 1 g/10 mL oral suspension 10 mL, Oral, QIDACHS, # 280 mL, 0 Refill(s), Pharmacy: [facility], 10 mL Oral [...] 1 Each, 1 Refill(s), Pharmacy : [facility] [id number] Start Date: 06/11/15 Status: Ordered promethazine 25 [...] combined right and left heart Tonsillectomy Tympanostomy [place] tooth 1auto-populated from documented surgical case 2auto-populated from documented surgical case 3auto-populated from documented surgical case 4auto-populated from documented surgical case Social History Social History Type Response Smoking Status Never smoker Assessment and Plan No data available for this section
--- OUTSIDE RECORDS SUMMARY | 2017-01-20 22:05 | XMS REPORT | Referral Summary ---
Author Organization Unknown Address Unknown Phone Unavailable Care Team Providers Care Chain Saw Mechanic Name Role Phone Pardeep Poole Primary Care Physician [phone] Encounter [facility] Date(s): 12/03/14 - 12/03/14 [facility], [place], Allergy Asthma [address] [place] [address] [facility] Discharge Diagnosis: Non-allergic rhinitis Discharge Diagnosis: Asthma Discharge Disposition: Home or Self Care Attending Physician: Vandana French MD Admitting Physician: Vandana French MD Vital Signs Most recent to 1 oldest [Reference Range]: Blood Pressure 118/74 mmHg [90-140/60-90 mmHg] (12/03/14 10:45 AM) Problem List Condition Effective Dates Status Health Status Informant Acid Active patient reflux(Confirmed) Acute Active pain(Confirmed) ADD(Confirmed) Active Allergic rhinitis, Active cause unspecified(Confirme d) Anemia(Confirmed) Active Anxiety state Active (finding)(Confirmed) Asthma without Active status asthmaticus (disorder)(Confirmed ) Bronchitis(Confirmed Resolved ) Chest Resolved pain(Confirmed) Depressive disorder, Active not elsewhere classified(Confirmed ) Depressive type Active psychosis(Confirmed) Heart Active murmur(Confirmed) Hiatal Active hernia(Confirmed) Morbid [...] 1 unknown unit, 1 Refill(s) , eRx: [id number], INHALE 1 PUFF BY INHALATION ROUTE 2 TIMES EVERY DAY IN THE M... Special Instructions: INHALE 1 PUFF BY INHALATION ROUTE 2 TIMES EVERY DAY IN THE MORNING AND EVENING APPROXIMATELY 12 HOURS APART Start Date: 12/02/14 Status: Ordered Carafate 1 g/10 mL oral suspension 10 mL, Oral, QIDACHS, # 1,200 mL, 6 Refill(s), Pharmacy: [facility] [id number], 10 mL Oral QIDACHS Start Date: 10/07/14 Status: Ordered Flonase 50 mcg/inh nasal spray 2 sprays, Nasal, Daily, # 1 Each, 5 Refill(s), Pharmacy: [facility] [id number] Start Date: 12/03/14 Status: Ordered FLUoxetine 20 mg, Oral, qAM, 0 Refill(s) Start Date: 11/18/14 Status: Ordered Latuda 60 mg, Oral, qPM, with food, 0 Refill(s) Special Instructions: with food Start Date: 03/29/14 Status: Ordered levETIRAcetam 1,000 mg, Oral, BID, 0 Refill(s) Start Date: 11/18/14 Status: Ordered loratadine 10 mg, Oral, Daily, 0 Refill(s) Start Date: 10/26/14 Status: Ordered mirtazapine 45 mg, Oral, Bedtime (once a day), 0 Refill(s) Start Date: 11/18/14 Status: Ordered NexIUM 40 mg, Oral, Daily, 0 Refill(s) Start Date: 11/18/14 Status: Ordered ProAir HFA 90 mcg/inh inhalation aerosol See Instructions, 2-4 puffs every 4-6 hrs prn., # 1 Each, 1 Refill(s), Pharmacy : [facility] [id number] Special Instructions: 2-4 puffs every 4-6 hrs prn. Start Date: 09/30/14 Status: Ordered Vimpat 100 mg oral tablet 1 tabs, Oral, BID, # 60 tabs, 2 Refill(s) Start Date: 10/08/14 Status: Ordered Vitamin D3 2,000 Intl_Units, Oral, Daily, 0 Refill(s) Start Date: [...] Adenoidectomy Bilateral tubal ligation Bronchoscope Tonsillectomy Tympanostomy [place] tooth Social History Social History Type Response Smoking Status Former smoker Assessment and Plan Extracted from: Title: Office Visit Note Author: Vandana French MD Date: 12/03/14 Assessment/Plan Asthma Stable, continue with Advair 250/50, follow up in 6 months with trino and if her symptoms are stable consider decreasingAdvair dose. Ordered: Office Visit Level 3 Est 53376 Non-allergic rhinitis Flonase was prescribed. Orders: fluticasone nasal, 2 sprays, Nasal, Daily, # 1 Each, 5 Refill(s), Pharmacy: [facility] [id number]
--- OUTSIDE RECORDS SUMMARY | 2017-01-20 22:06 | XMS REPORT | Continuity of Care Document ---
Author Author [facility] Address Unknown Phone Unavailable Care Team Providers Care Sales Agent Insurance Name Role Phone Myla Curiel PP Unavailable Jagdeep Michael RP Unavailable Payers Payer name Insurance type Covered green party ID Authorization(s) Unknown Problems Condition Effective Dates (start - stop) Clinical Status Sixth cranial nerve palsy - *Chronic Seizure disorder - *Chronic Headache - Episodic Tobacco Abuse - Recurrent Asthma - *Chronic GERD - Improved Alteration of consciousness - *Chronic Sixth cranial nerve palsy - New onset Seizure disorder - *Chronic Asthma - *Symptomatic Allergic rhinitis, cause unspecified - *Symptomatic 311 - DEPRESSIVE DISORDER NEC - ALLERGIC RHINITIS NOS - ASTHMA NOS W (AC) EXAC - Asthma - *Chronic GERD (gastroesophageal reflux disease) - *Poor control Accidental poisoning by second-hand tobacco smoke - *Chronic as incidental finding - Stable Seizure disorder - *Uncontrolled ASTHMA,UNSPECIFIED TYPE, UNSPECIFIED - *Chronic Depressive type psychosis - *Chronic Anxiety state, unspecified - *Chronic Acute gastritis (without mention of hemorrhage) - *Chronic Headache - *Chronic Seizure disorder - *Chronic Family History Family Member Diagnosis Age At Onset Status Mother (Unknown) Asthma Yes Mother (Unknown) Depression Yes Sister (Unknown) Alive and well (Unknown) Mother (Unknown) COPD Yes Family h/o (Unknown) Cancer Yes Mother (Unknown) CHronic back pain Yes Mother (Unknown) Migraines Yes Mother (Unknown) Hypertension Yes Social History Social History Element Description Quantity Unknown Allergies, Adverse Reactions, Alerts Substance Reaction Severity Status OMEPRAZOLE Turns red Unknown OMEPRAZOLE MAGNESIUM Turns red Unknown Medications Medication Instructions Dosage Effective Dates (start - stop) Status Latuda 40 mg tablet take 1 tablet (40MG) by oral route every day with food ( at least 350 calories) 40 MG - Active ProAir HFA 90 mcg/actuation aerosol inhaler inhale 2 puff by inhalation route every 4 - 6 hours as needed 0 - Active Carafate 100 mg/mL oral suspension take 10 milliliter (1G) by oral route 4 times every day on an empty stomach 1 hour before meals and at bedtime 1 G - Active Zofran 8 mg tablet take 1 tablet (8MG) by oral route 3 times every day as needed 8 MG - Active Tylenol 325 mg tablet take 1 tablet (325MG) by oral route every 4 hours as needed as needed 325 MG - Active fluoxetine 20 mg tablet take 1 tablet (20MG) by oral route every day in the morning 20 MG - Active REMERON (unknown strength) take 1 tablet by oral route every day before bedtime - Active levetiracetam 1,000 mg tablet take 1 tablet (1000MG) by oral route every 12 hours 1000 MG - Active loratadine 10 mg tablet take 1 tablet (10MG) by oral route every day 10 MG - Active Singulair 10 mg tablet take 1 tablet (10MG) by oral route every day in the evening 10 MG - Active Immunizations Vaccine Date Status Comments Unknown Results Test Name Date and Time Measure Units Reference Range Abnormal Flag Comments Unknown Vital Signs Date / Time: Height Weight Pulse Rate Blood Pressure Temperature /07:53:00 62.50 in 222.00 lbs 60 /min 120/80 mm[Hg] Procedures Procedure Date Unknown Encounters Encounter Location Date Patient Visit [facility] Neuro Patient Visit [facility] Patient Visit [facility] Neuro Patient Visit [facility] Neuro Patient Visit [facility] E21 Patient Visit [facility]version Patient Visit [facility] [place] Patient Visit [facility] Neuro Patient Visit [facility] Quinten Saldana Patient Visit [facility] Advance Directives Directive Effective Date Unknown
--- OUTSIDE RECORDS SUMMARY | 2017-01-20 22:06 | XMS REPORT ---
Author Author [facility], [facility] - Organization Unknown Address Unknown Phone Unavailable Allergies, Adverse Reactions, Alerts * Prilosec causes Adverse Reaction. * Latex Allergy has not been assessed. * IV Contrast Allergy has not been assessed. Problems * Anxiety* Status:Active. * Depression* Status:Active. * Family Problems* Status:Active. * Patient Currently * Status:Active. Procedures No Procedures Documented. Medication Medication reconciliation has not been performed. Results LAB--BEDSIDE TESTING from 03/30/2013 11:59 PMAnion Gap NPT 11 (3-20 ) BUN Venous NPT 4 mg/dl (4-20 mg/dl) Calcium Ionized Venous 1.20 mmol/L (1.19-1.41 mmol/L) Venous CL NPT 107 mEq/L (99-109 mEq/L) Creatinine Venous NPT 0.6 mg/dL (0.4-1.0 mg/dL) Glucose Venous 94 mg/dL (70-100 mg/dL) HCT Venous NPT 29.0 % L (37.0-47.0 %) HGB Venous NPT 9.9 g/dL L (12.0-16.0 g/dL) Potassium Venous 3.4 mEq/L L (3.6-5.1 mEq/L) Sodium Venous 140 mEq/L (136-144 mEq/L) Total CO2 Venous 22 mEq/L L (25-29 mEq/L) LAB--CHEMISTRY from 03/30/2013 11:45 PMPregnancy, Urine Negative (Negative ) LAB--URINE TESTS from 03/30/2013 11:45 PMAppearance Clear Bilirubin Negative (Negative ) Blood Negative (Negative ) Color Lt Yellow Glucose Negative (Negative ) Ketones, Urine Negative (Negative ) Leukocytes Esterase Pos 1+ A (Negative ) Nitrites Negative (Negative ) pH, Urine 7.0 (5.0-8.0 ) Protein Negative (Negative ) Specific [place] 1.006 (1.003-1.030 ) Collection Type: Clean Catch Urobilinogen Negative mg/dL (-<1.0 mg/dL) Bacteria Rare Epithelial Cells 2-5 /HPF WBC 0-2 /HPF (0-4 /HPF)
--- OUTSIDE RECORDS SUMMARY | 2017-01-20 22:06 | XMS REPORT | Continuity of Care Document ---
Author Author Charity DANIELLE, [facility] Address [address] [place] [address] Phone Care Team Providers Care Strategic Partnership Specialist Name Role Phone Myla Curiel PP Unavailable Jagdeep Michael RP Unavailable Payers Payer name Insurance type Covered republican ID Authorization(s) Unknown Problems Condition Effective Dates (start - stop) Clinical Status Asthma - *Chronic GERD (gastroesophageal reflux disease) - *Poor control Accidental poisoning by second-hand tobacco smoke - *Chronic as incidental finding - Stable Tobacco Abuse - Recurrent Asthma - *Chronic GERD - Improved Alteration of consciousness - *Chronic 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 - Active ProAir HFA 90 mcg/actuation aerosol [...] needed as needed 325 MG - Active Lortab 5 mg-500 mg tablet take 1 tablet by oral route every 4 - 6 hours as needed for pain 0 - Active fluoxetine 20 mg tablet take 1 tablet (20MG) by oral route every day in the morning 20 MG - Active REMERON (unknown strength) take 1 tablet by oral route every day before bedtime - Active levetiracetam 1,000 mg tablet take 1 tablet (1000MG) by oral route every 12 hours 1000 MG - Active Immunizations Vaccine Date Status Comments Unknown Results Test Name Date and Time Measure Units Reference Range Abnormal Flag Comments Unknown Vital Signs Date / Time: Height Weight Pulse Rate Blood Pressure Temperature Unknown Procedures Procedure Date Unknown Encounters Encounter Location Date Patient Visit [facility] Neuro Patient Visit [facility] Patient Visit [facility] Patient Visit [facility] Patient Visit [facility] Patient Visit [facility] Patient Visit [facility] Neuro Patient Visit [facility] Quinten Saldana Patient Visit [facility] Advance Directives Directive Effective Date Unknown
--- OUTSIDE RECORDS SUMMARY | 2017-01-20 22:06 | XMS REPORT | Referral Summary ---
Author Author [facility] Organization [facility] Address Unknown Phone Unavailable Care Team Providers Care Tightener Name Role Phone [facility] Primary Care Physician Unavailable Encounter [facility] [id number] Date(s): 12/26/15 - 12/26/15 [facility] [address] [place] [address] Discharge Diagnosis: Chest pain, unspecified Discharge Disposition: 01-Home or Self Care Attending Physician: Vance Lei MD Admitting Physician: Vance Lei MD Vital Signs Most recent to 1 oldest [Reference Range]: Temperature Oral 36.6 degC [35.8-37.3 degC] (12/26/15 9:20 AM) Peripheral Pulse 66 bpm Rate [60-100 bpm] (12/26/15 9:20 AM) Respiratory Rate 18 br/min [14-20 br/min] (12/26/15 9:20 AM) Blood Pressure 134/82 mmHg [90-140/60-90 mmHg] (12/26/15 9:20 AM) SpO2 99 % (12/26/15 9:20 AM) Problem List Condition Effective Dates Status [...] pain, # 300 mL, 0 Refill(s), Pharmacy: [facility] [id number], 10 mL Oral q6hr,PRN:as needed for pain Start Date: 12/24/14 Status: Ordered Advair Diskus 250 mcg-50 mcg inhalation powder See Instructions, INHALE 1 PUFF BY INHALATION ROUTE 2 TIMES EVERY DAY IN THE MORNING AND EVENING APPROXIMATELY 12 HOURS APART, # 1 unknown unit, eRx: [facility] [id number], INHALE 1 PUFF BY INHALATION ROUTE 2 [...] # 30 tabs, 5 Refill(s), Pharmacy: [facility] [id number], 1 tabs Oral Daily Start Date: 09/01/15 Status: Ordered codeine-guaiFENesin 10 mg-300 mg/5 mL oral liquid 5 mL, Oral, q6hr, as needed for cough, # 120 mL, 0 Refill(s) Start Date: 12/21/15 Status: Ordered Flonase 50 mcg/inh nasal spray 2 sprays, Nasal, Daily, # 1 Each, 5 Refill(s), Pharmacy: [facility] [id number] Start Date: 12/12/15 Status: Ordered ibuprofen 800 mg oral tablet 800 mg 1 tabs, Oral, TID, Pain, # 15 tabs, 0 Refill(s) Start Date: 12/07/15 Status: Ordered loratadine 10 mg oral tablet 10 mg, Oral, Daily, # 30 tabs, 5 Refill(s), Pharmacy: [facility] [id number] , 10 mg Oral Daily Start Date: [...] # 1 Each, 1 Refill(s), [email or web address] [id number] Start Date: 06/11/15 Status: Ordered Robitussin DM To Go 20 mg-200 mg/10 mL oral liquid 10 mL, Oral, q4hr, as needed for cough, # 100 mL, 0 Refill(s), [email or web address] [id number] Start Date: 12/12/15 Status: Ordered traZODone Oral, [...] to 1 oldest [Reference Range]: Sodium Venous 141 mEq/L [136-144 mEq/L] (12/26/15:23 AM) Potassium Venous 4.0 mEq/L 1 [3.6-5.1 mEq/L] (12/26/15:23 AM) Calcium Ionized 1.23 mmol/L Venous [1.19-1.41 (12/26/15:23 AM) mmol/L] Total CO2 Venous 22 mEq/L [25-29 mEq/L] *LOW* (12/26/15: AM) HGB Venous NPT 12.9 gm/dL [12.0-16.0 gm/dL] (12/26/15:23 AM) HCT Venous 38.0 % [37.0-47.0 %] (12/26/15: AM) Glucose Venous 95 mg/dL [70-100 mg/dL] (12/26/15: AM) BUN Venous [4-20] 6 (12/26/15: AM) Creatinine Venous 0.5 mg/dL [0.4-1.0 mg/dL] (12/26/15: AM) Venous CL [99-109 106 mEq/L mEq/L] (12/26/15: AM) Anion Gap, Darron 13 [3-20] (12/26/15:23 AM) Screen, Negative Urine NPT (12/26/15 10:43 AM) 1Result Comment: This test was performed on a whole blood specimen. The presence or absence of hemolysis cannot be assessed. Hemolysis can falsely elevate potassium levels. Normals are for venous specimens only. Urinalysis Most recent to 1 oldest [Reference Range]: UA Color Straw (12/26/15 10:41 AM) UA Appear Clear (12/26/15 10:41 AM) UA pH [5.0-8.0] 7.0 (12/26/15 10:41 AM) UA Leuk Est Negative [Negative] (12/26/15 10:41 AM) UA Nitrite Negative [Negative] (12/26/15 10:41 AM) UA Protein Negative [Negative] (12/26/15 10:41 AM) UA Glucose Negative [Negative] (12/26/15 10:41 AM) UA Ketones Negative [Negative] (12/26/15 10:41 AM) UA Urobilinogen Negative [<1.0] (12/26/15 10:41 AM) UA Bili [Negative] Negative (12/26/15 10:41 AM) UA Blood [Negative] Negative (12/26/15 10:41 AM) UA Spec Grav <1.003 [1.003-1.030] (12/26/15 10:41 AM) Type Clean Catch (12/26/15 10:41 AM) Immunizations Vaccine Date Refusal Reason pneumococcal 23-polyvalent vaccine 11/18/14 Procedures Procedure Date Related Diagnosis Body Site Esophagogastroduodenoscopy Balloon Dilat1 02/14/15 Examination Under Anesthesia2 02/14/15 Adenoidectomy Bilateral tubal ligation Bronchoscope Cardiac catheterization, combined right and left heart Tonsillectomy Tympanostomy [employer] tooth 1auto-populated from documented surgical case 2auto-populated from documented surgical case Social History Social History Type Response Smoking Status Former smoker; Type: Cigarettes; Tobacco use per day: 1 Pack1 , 2 1pt quit smoking 1 month ago 2quit 05/2015 Assessment and Plan No data available for this section"
--- OUTSIDE RECORDS SUMMARY | 2017-01-20 22:06 | XMS REPORT | Referral Summary ---
Author Author [facility] Organization [facility] Address Unknown Phone Unavailable Care Team Providers Care Web Site Developer Name Role Phone [facility] Primary Care Physician Unavailable Encounter [facility] TEJADA [id number] Date(s): 12/25/15 - 12/25/15 [facility] [address] [place] [address] [phone] Discharge Diagnosis: Chronic abdominal pain Discharge Diagnosis: Hernia, hiatal Discharge Diagnosis: Acute gastritis Discharge Disposition: -Home or Self Care Attending Physician: Ramona Otto DO Admitting Physician: Ramona Otto DO Vital Signs Most recent to 1 oldest [Reference Range]: Temperature Oral 36.7 degC [35.8-37.3 degC] (12/25/15 11:06 AM) Peripheral Pulse 98 bpm Rate [60-100 bpm] (12/25/15 11:06 AM) Respiratory Rate 18 br/min [14-20 br/min] (12/25/15 11:06 AM) Blood Pressure 118/76 mmHg [90-140/60-90 mmHg] (12/25/15 11:06 AM) SpO2 98 % (12/25/15 11:06 AM) Problem List Condition Effective Dates Status [...] pain, # 300 mL, 0 Refill(s), Pharmacy: [facility] [id number], 10 mL Oral q6hr,PRN:as needed for pain Start Date: 12/24/14 Status: Ordered Advair Diskus 250 mcg-50 mcg inhalation powder See Instructions, INHALE 1 PUFF BY INHALATION ROUTE 2 TIMES EVERY DAY IN THE MORNING AND EVENING APPROXIMATELY 12 HOURS APART, # 1 unknown unit, eRx: [facility] [id number], INHALE 1 PUFF BY INHALATION ROUTE 2 [...] Daily, # 30 tabs, 5 Refill(s), Pharmacy: [facility] [id number], 1 tabs Oral Daily Start Date: 09/01/15 Status: Ordered codeine-guaiFENesin 10 mg-300 mg/5 mL oral liquid 5 mL, Oral, q6hr, as needed for cough, # 120 mL, 0 Refill(s) Start Date: 12/21/15 Status: Ordered Flonase 50 mcg/inh nasal spray 2 sprays, Nasal, Daily, # 1 Each, 5 Refill(s), Pharmacy: [facility] [id number] Start Date: 12/12/15 Status: Ordered ibuprofen 800 mg oral tablet 800 mg 1 tabs, Oral, TID, Pain, # 15 tabs, 0 Refill(s) Start Date: 12/07/15 Status: Ordered loratadine 10 mg oral tablet 10 mg, Oral, Daily, # 30 tabs, 5 Refill(s), Pharmacy: [facility] [id number] , 10 mg Oral Daily Start Date: [...] Refill(s), Pharmacy : [facility] [id number] Start Date: 06/11/15 Status: Ordered Robitussin DM To Go 20 mg-200 mg/10 mL oral liquid 10 mL, Oral, q4hr, as needed for cough, # 100 mL, 0 Refill(s), Pharmacy: [facility] [address]58 Start Date: 12/12/15 Status: Ordered traZODone Oral, 0 Refill(s) Start Date: 04/05/15 Status: Ordered Viibryd Oral, Daily, 0 Refill(s) Start Date: 04/05/15 Status: Ordered Vitamin D3 1,000 Intl_Units, Oral, Daily, 0 Refill(s) Start Date: 10/26/14 Status: Ordered Zithromax Z-Rubens 250 mg oral tablet See Instructions, 2 tabs po today then 1 tab daily for 4 days. as directed on package labeling, # 6 tabs, 0 Refill(s), 1 packets Oral Daily,x5 days,Instr:as directed on package labeling Start Date: 12/21/15 Stop Date: 12/26/15 Status: Ordered Zofran ODT 4 mg oral tablet, disintegrating 4 mg 1 tabs, Oral, q6hr, Nausea or Vomiting | as needed for nausea/vomiting, # 10 tabs, 0 Refill(s) Start Date: 12/25/15 Stop Date: 01/03/16 Status: Ordered Results Hematology Most recent to 1 oldest [Reference Range]: WBC [4.8-10.8 5.1 10*3/uL 10*3/uL] (12/25/15 11:34 AM) RBC [4.00-5.20] 4.68 (12/25/15 11:34 AM) Hgb [12.0-16.0 11.7 gm/dL gm/dL] *LOW* (12/25/15 11:34 AM) Hct [37.0-47.0 %] 37.7 % (12/25/15 11:34 AM) MCV [82.0-99.0 fL] 80.6 fL *LOW* (12/25/15 11:34 AM) MCH [27.0-32.0 pg] 25.0 pg *LOW* (12/25/15 11:34 AM) MCHC [32.0-36.0 31.0 gm/dL gm/dL] *LOW* (12/25/15 11:34 AM) RDW [11.5-14.5 %] 17.7 % *HI* (12/25/15 11:34 AM) Platelet [150-400 236 10*3/uL 10*3/uL] (12/25/15 11:34 AM) MPV [9.4-12.4 fL] 9.5 fL (12/25/15 11:34 AM) Immature 0.2 % Granulocytes (12/25/15 11:34 AM) [0.0-1.0 %] Neutrophils [51-75 64 % %] (12/25/15 11:34 AM) Lymphocytes [20-46 26 % %] (12/25/15 11:34 AM) Monocytes [4-11 %] 8 % (12/25/15 11:34 AM) Eosinophils [0-4 %] 1 % (12/25/15 11:34 AM) Basophils [0-2 %] 0 % (12/25/15:34 AM) Neutro Absolute 3.30 10*3 [1.90-7.00 10*3] (12/25/1534 AM) Lymph Absolute 1.34 10*3 [0.80-3.30 10*3] (12/25/1534 AM) [place] Absolute 0.40 10*3 [0.30-1.00 10*3] (12/25/1534 AM) Eos Absolute 0.06 10*3 [0.00-0.50 10*3] (12/25/15:34 AM) Baso Absolute 0.02 10*3 [0.00-0.20 10*3] (12/25/1534 AM) Chemistry Most recent to 1 oldest [Reference Range]: Sodium Lvl [136-144 137 mEq/L mEq/L] (12/25/1534 AM) Potassium Lvl 3.8 mEq/L [3.6-5.1 mEq/L] (12/25/1534 AM) Chloride [99-109 102 mEq/L mEq/L] (12/25/1534 AM) CO2 [22-32 mEq/L] 26 mEq/L (12/25/1534 AM) AGAP [3-20] 9 (12/25/1534 AM) BUN [4-20 mg/dL] 6 mg/dL (12/25/1534 AM) Glucose Lvl [70-100 91 mg/dL mg/dL] (12/25/1534 AM) Creatinine Lvl 0.62 mg/dL [0.44-1.03 mg/dL] (12/25/1534 AM) eGFR [>60] >60 1 (12/25/1534 AM) Calcium Lvl 9.3 mg/dL [8.6-10.0 mg/dL] (12/25/1534 AM) Albumin Lvl [3.5-4.8 3.9 gm/dL gm/dL] (12/25/1534 AM) Total Protein 7.8 gm/dL [6.1-7.9 gm/dL] (3/10/16 11:34 AM) Globulin [1.9-4.3 3.9 gm/dL gm/dL] (12/25/15:34 AM) ALT [14-54 U/L] 10 U/L *LOW* (12/25/15:34 AM) AST [15-41 U/L] 12 U/L *LOW* (12/25/15:34 AM) Alk Phos [26-104 91 U/L U/L] (12/25/1534 AM) Bili Total [0.2-1.2 0.7 mg/dL 2 mg/dL] (12/25/15:34 AM) Lipase Lvl [8-48 28 U/L U/L] (12/25/15:34 AM) Screen, Negative Urine NPT (12/25/15 11:36 AM) 1Result Comment: Multiply eGFR results by 1.21 for race. 2Result Comment: Naproxen, specifically the metabolite O-desmethylnaproxen, may cause spurious elevation in Total Bilirubin levels. Urinalysis Most recent to 1 oldest [Reference Range]: UA Color Yellow (12/25/15:34 AM) UA Appear Clear (12/25/15:34 AM) UA pH [5.0-8.0] 7.0 (12/25/15:34 AM) UA Leuk Est Pos 1+ [Negative] *ABN* (12/25/15:34 AM) UA Nitrite Negative [Negative] (12/25/15:34 AM) UA Protein Negative [Negative] (12/25/15:34 AM) UA Glucose Negative [Negative] (12/25/15 11:34 AM) UA Ketones Negative [Negative] (12/25/15 11:34 AM) UA Urobilinogen Negative [<1.0] (12/25/15:34 AM) UA Bili [Negative] Negative (12/25/15:34 AM) UA Blood [Negative] Negative (12/25/15 11:34 AM) UA Spec Grav 1.012 [1.003-1.030] (12/25/15 11:34 AM) Type Clean Catch (12/25/15 11:34 AM) UA WBC [0-4] 10-20 *ABN* (12/25/15 11:34 AM) UA RBC [0-2] 0-2 (12/25/15 11:34 AM) Epithelial Cells 2-5 (12/25/15 11:34 AM) UA Bacteria Occasional *ABN* (12/25/15 11:34 AM) UA Mucous Present (12/25/15 11:34 AM) Immunizations Vaccine Date Refusal Reason pneumococcal 23-polyvalent vaccine 11/18/14 Procedures Procedure Date Related Diagnosis Body Site Esophagogastroduodenoscopy Balloon Dilat1 02/14/15 Examination Under Anesthesia2 02/14/15 Adenoidectomy Bilateral tubal ligation Bronchoscope Cardiac catheterization, combined right and left heart Tonsillectomy Tympanostomy [place] tooth 1auto-populated from documented surgical case 2auto-populated from documented surgical case Social History Social History Type Response Smoking Status Former smoker; Type: Cigarettes; Tobacco use per day: 1 Pack1 , 2 1pt quit smoking 1 month ago 2quit 05/2015 Assessment and Plan No data available for this section"
--- OUTSIDE RECORDS SUMMARY | 2017-01-20 22:06 | XMS REPORT | Referral Summary ---
Author Author [facility] Organization [facility] Address Unknown Phone Unavailable Care Team Providers Care Occupational Medicine Specialist Name Role Phone Imelda Martin Primary Care Physician [phone] Encounter Date(s): 10/27/15 - 10/27/15 [facility] [address] [place], [place] [address] Discharge Diagnosis: Chest wall pain Discharge Disposition: 01-Home or Self Care Attending Physician: Jefferson Barbosa DO Admitting Physician: Jefferson Barbosa DO Vital Signs Most recent to 1 oldest [Reference Range]: Temperature Oral 36.1 degC [35.8-37.3 degC] (10/27/15 6:03 PM) Peripheral Pulse 92 bpm Rate [60-100 bpm] (10/27/15 7:15 PM) Heart Rate Monitored 92 bpm [60-100 bpm] (10/27/15 6:32 PM) Respiratory Rate 20 br/min [14-20 br/min] (10/27/15 7:15 PM) Blood Pressure 112/80 mmHg [90-140/60-90 mmHg] (10/27/15 7:15 PM) SpO2 98 % (10/27/15 7:15 PM) Problem List Condition Effective Dates Status [...] pain, # 300 mL, 0 Refill(s), Pharmacy: [facility] [id number], 10 mL Oral q6hr,PRN:as needed for pain Start Date: 12/24/14 Status: Ordered Advair Diskus 250 mcg-50 mcg inhalation powder See Instructions, INHALE 1 PUFF BY INHALATION ROUTE 2 TIMES EVERY DAY IN THE MORNING AND EVENING APPROXIMATELY 12 HOURS APART, # 1 unknown unit, eRx: [facility] [id number], INHALE 1 PUFF BY INHALATION ROUTE 2 TIMES EVERY DAY IN THE MORNING AND EV... Start Date: 02/25/15 Status: Ordered Atrovent 42 mcg/inh nasal spray 2 sprays, Nasal, TID, # 2 Each, 5 Refill(s), Pharmacy: [facility] [id number] Start Date: 06/11/15 Stop Date: 06/11/16 Status: Ordered Carafate 1 g oral tablet 1 g 1 tabs, Oral, QID, Dissolve in water and drink, # 40 tabs, 0 Refill(s) Start Date: 08/31/15 Status: Ordered cetirizine 10 mg oral tablet 10 mg 1 tabs, Oral, Daily, # 30 tabs, 5 Refill(s), Pharmacy: [facility] [id number], 1 tabs Oral Daily Start Date: 09/01/15 Status: Ordered Linzess 290 mcg oral capsule 1 caps, Oral, Daily, # 30 caps, 6 Refill(s), Pharmacy: [facility] [id number], 1 caps Oral Daily Start Date: 02/24/15 Status: Ordered loratadine 10 mg oral tablet 10 mg, Oral, Daily, # 30 tabs, 5 Refill(s), Pharmacy: [facility] [id number] , 10 mg Oral Daily Start Date: [...] # 1 Each, 1 Refill(s), Pharmacy : [facility] [id number] Start Date: 06/11/15 Status: Ordered traZODone Oral, [...] combined right and left heart Tonsillectomy Tympanostomy [place] tooth 1auto-populated from documented surgical case 2auto-populated from documented surgical case Social History Social History Type Response Smoking Status Former smoker; Type: Cigarettes; Tobacco use per day: 1 Pack1 1quit 05/2015 Assessment and Plan No data available for this section
--- OUTSIDE RECORDS SUMMARY | 2017-01-20 22:06 | XMS REPORT | Referral Summary ---
Author Author [facility] Organization [facility] Address Unknown Phone Unavailable Care Team Providers Care Consumer Electronics Merchandiser Name Role Phone Nisha Colindres Primary Care Physician [phone] Encounter [facility] [id number] Date(s): 12/07/16 - 12/07/16 [facility] [address] [place] [address] [phone] Discharge Diagnosis: Seizure Discharge Diagnosis: Noncompliance with medication regimen Discharge Diagnosis: Bedbug bite Discharge Disposition: 01-Home or Self Care Attending Physician: Vance Lei MD Admitting Physician: Vance Lei MD Vital Signs Most recent to 1 oldest [Reference Range]: Temperature Oral 36.3 degC [35.8-37.3 degC] (12/07/16 10:28 AM) Peripheral Pulse 72 bpm Rate [60-100 bpm] (12/07/16 10:28 AM) Heart Rate Monitored 76 bpm [60-100 bpm] (12/07/16 9:20 AM) Respiratory Rate 18 br/min [14-20 br/min] (12/07/16 10:28 AM) Blood Pressure 110/74 mmHg [90-140/60-90 mmHg] (12/07/16 10:28 AM) Mean Arterial 98 mmHg Pressure, Cuff (12/07/16 9:20 AM) SpO2 97 % (12/07/16 10:28 AM) Problem List Condition Effective Dates Status [...] Daily, # 30 tabs, 6 Refill(s), Pharmacy: [facility] [id number], 1 tabs Oral Daily Start Date: 11/12/16 [...] # 12 tabs, 0 Refill(s) Start Date: 1/2/17 Status: Ordered ProAir HFA 90 mcg/inh inhalation aerosol 2 puffs, Inhalation, QID, as needed for wheezing, 0 Refill(s) Start Date: 06/04/16 Status: Ordered Results Chemistry Most recent to 1 oldest [Reference Range]: Sodium Venous 141 mEq/L [136-144 mEq/L] (12/07/16 9:23 AM) Potassium Venous 3.5 mEq/L 1 [3.6-5.1 mEq/L] *LOW* (12/07/16 9:23 AM) Calcium Ionized 1.19 mmol/L Venous [1.19-1.41 (12/07/16 9:23 AM) mmol/L] Total CO2 Venous 21 mEq/L [25-29 mEq/L] *LOW* (12/07/16 9:23 AM) HGB Venous NPT 11.2 gm/dL [12.0-16.0 gm/dL] *LOW* (12/07/16 9:23 AM) HCT Venous 33.0 % [37.0-47.0 %] *LOW* (12/07/16 9:23 AM) Glucose Venous 79 mg/dL [70-100 mg/dL] (12/07/16 9:23 AM) BUN Venous [4-20] 6 (12/07/16 9:23 AM) Creatinine Venous 0.5 mg/dL [0.4-1.0 mg/dL] (12/07/16 9:23 AM) Venous CL [99-109 105 mEq/L mEq/L] (12/07/16 9:23 AM) Anion Gap, Darron 15 [3-20] (12/07/16 9:23 AM) U Beta hCG Ql Neg (12/07/16 9:40 AM) 1Result Comment: This test was performed on a whole blood specimen. The presence or absence of hemolysis cannot be assessed. Hemolysis can falsely elevate potassium levels. Normals are for venous specimens only. Urinalysis Most recent to 1 oldest [Reference Range]: UA Color Straw (12/07/16 9:41 AM) UA Appear Sl Cloudy (12/07/16 9:41 AM) UA pH [5.0-8.0] 7.0 (12/07/16 9:41 AM) UA Leuk Est Trace [Negative] *ABN* (12/07/16 9:41 AM) UA Nitrite Negative [Negative] (12/07/16 9:41 AM) UA Protein Negative [Negative] (12/07/16 9:41 AM) UA Glucose Negative [Negative] (12/07/16 9:41 AM) UA Ketones Pos 1+ [Negative] *ABN* (12/07/16 9:41 AM) UA Urobilinogen Negative [<1.0] (12/07/16 9:41 AM) UA Bili [Negative] Negative (12/07/16 9:41 AM) UA Blood [Negative] Negative (12/07/16 9:41 AM) UA Spec Grav 1.005 [1.003-1.030] (12/07/16 9:41 AM) Type Clean Catch (12/07/16 9:41 AM) UA WBC [0-4] 0-2 (12/07/16 9:41 AM) UA RBC [0-2] None seen (12/07/16 9:41 AM) Epithelial Cells 2-5 (12/07/16 9:41 AM) UA Bacteria Rare (12/07/16 9:41 AM) Immunizations Given and Recorded Vaccine Date Status [...] combined right and left heart Tonsillectomy Tympanostomy [place] tooth 1auto-populated from documented surgical case 2auto-populated from documented surgical case 3auto-populated from documented surgical case 4auto-populated from documented surgical case 5auto-populated from documented surgical case Social History Social History Type Response Smoking Status Current every day smoker; Type: Cigarettes; Tobacco use per day: 1 Pack Assessment and Plan No data available for this section
--- OUTSIDE RECORDS SUMMARY | 2017-01-20 22:06 | XMS REPORT | Referral Summary ---
Author Author Via [facility] Organization Via [facility] Address Unknown Phone Unavailable Care Team Providers Care Machinist Tool And Die Name Role Phone Imelda Martin Primary Care Physician [phone] Encounter [facility] Date(s): 06/01/16 - 06/01/[address] [facility] [address] [place], [place] [address] Discharge Diagnosis: Tobacco abuse Discharge Diagnosis: Tobacco abuse counseling Discharge Diagnosis: Chronic GERD Discharge Diagnosis: Drug-seeking behavior Discharge Disposition: 01-Home or Self Care Attending Physician: Maxx Torres JR, MD Admitting Physician: Maxx Torres JR, MD Vital Signs Most recent to 1 oldest [Reference Range]: Temperature Oral 36.5 degC [35.8-37.3 degC] (06/01/16 7:18 PM) Peripheral Pulse 73 bpm Rate [60-100 bpm] (06/01/16 7:18 PM) Heart Rate Monitored 91 bpm [60-100 bpm] (06/01/16 8:30 PM) Respiratory Rate 20 br/min [14-20 br/min] (06/01/16 8:30 PM) Blood Pressure 100/90 mmHg [90-140/60-90 mmHg] (06/01/16 8:30 PM) Mean Arterial 94 mmHg Pressure, Cuff (06/01/16 8:30 PM) SpO2 97 % (06/01/16 8:30 PM) Problem List Condition Effective Dates Status [...] HOURS APART, # 1 unknown unit, eRx: [id number], INHALE 1 PUFF BY INHALATION ROUTE 2 TIMES EVERY DAY IN THE MORNING AND EV... Start Date: 02/25/15 Status: Ordered Carafate 1 g/10 mL oral suspension 10 mL, Oral, QIDACHS, # 280 mL, 0 Refill(s), Pharmacy: [facility], 10 mL Oral QIDACHS Start [...] Pharmacy : [facility] [id number] Start Date: 06/11/15 Status: Ordered promethazine 25 [...] Most recent to 1 oldest [Reference Range]: Troponin-POC Negative (06/01/16 7:45 PM) Immunizations Vaccine Date Refusal Reason pneumococcal 23-polyvalent vaccine 11/18/14 Procedures Procedure Date Related Diagnosis Body Site Esophagogastroduodenoscopy Foreign Body 01/06/16 Removal1 Procedure with Anesthesia2 01/06/16 Esophagogastroduodenoscopy Balloon Dilat3 02/14/15 Examination Under Anesthesia4 02/14/15 Adenoidectomy Bilateral tubal ligation Bronchoscope Cardiac catheterization, combined right and left heart Tonsillectomy Tympanostomy [place] tooth 1auto-populated from documented surgical case 2auto-populated from documented surgical case 3auto-populated from documented surgical case 4auto-populated from documented surgical case Social History Social History Type Response Smoking Status Never smoker Assessment and Plan No data available for this section
--- OUTSIDE RECORDS SUMMARY | 2017-01-20 22:06 | XMS REPORT | Referral Summary ---
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 Care Hand Binder Cutter Name Role Phone Imelda Martin Primary Care Physician [phone] Encounter VC Date(s): 06/15/16 - 06/15/16 [facility] [address] [place] [address] [phone] Discharge Diagnosis: Nonspecific low back pain Discharge Disposition: 01-Home or Self Care Attending Physician: Demarcus Burrell MD Admitting Physician: Demarcus Burrell MD Vital Signs Most recent to 1 oldest [Reference Range]: Peripheral Pulse 69 bpm Rate [60-100 bpm] (06/15/16 6:03 PM) Heart Rate Monitored 73 bpm [60-100 bpm] (06/15/16 5:33 PM) Respiratory Rate 18 br/min [14-20 br/min] (06/15/16 6:03 PM) Blood Pressure 96/59 mmHg [90-140/60-90 mmHg] (06/15/16 6:03 PM) Mean Arterial 78 mmHg Pressure, Cuff (06/15/16 5:33 PM) SpO2 99 % (06/15/16 6:03 PM) Problem List Condition Effective Dates Status [...] QIDACHS, # 280 mL, 0 Refill(s), Pharmacy: [facility], 10 mL Oral QIDACHS [...] combined right and left heart Tonsillectomy Tympanostomy [place] tooth 1auto-populated from documented surgical case 2auto-populated from documented surgical case 3auto-populated from documented surgical case 4auto-populated from documented surgical case 5auto-populated from documented surgical case Social History Social History Type Response Smoking Status Never smoker Assessment and Plan No data available for this section
--- OUTSIDE RECORDS SUMMARY | 2017-01-20 22:06 | XMS REPORT | Referral Summary ---
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 Name Role Phone Imelda Martin Primary Care Physician [phone] Encounter Date(s): 04/20/15 - 04/20/15 [facility] [address] [place] [address] Discharge Diagnosis: Chronic abdominal pain Discharge Diagnosis: Anemia Final: ABDOMINAL PAIN, LEFT LOWER QUADRANT Final: Other chronic pain Final: NAUSEA ALONE Discharge Disposition: 01-Home or Self Care Attending Physician: Moses Kay JR, MD Admitting Physician: Moses Kay JR, MD Referring Physician: Self Referred, X Vital Signs Most recent to 1 oldest [Reference Range]: Temperature Oral 36.5 degC [35.8-37.3 degC] (04/20/15 1:20 AM) Peripheral Pulse 78 bpm Rate [60-100 bpm] (04/20/15 5:00 AM) Respiratory Rate 14 br/min [14-20 br/min] (04/20/15 1:20 AM) Blood Pressure 119/76 mmHg [90-140/60-90 mmHg] (04/20/15 5:00 AM) SpO2 95 % (04/20/15 5:00 AM) Problem List Condition Effective Dates Status [...] pain, # 300 mL, 0 Refill(s), Pharmacy: [facility] [id number], 10 mL Oral q6hr,PRN:as needed for pain Start Date: 12/24/14 Status: Ordered Advair Diskus 250 mcg-50 mcg inhalation powder See Instructions, INHALE 1 PUFF BY INHALATION ROUTE 2 TIMES EVERY DAY IN THE MORNING AND EVENING APPROXIMATELY 12 HOURS APART, # 1 unknown unit, eRx: [facility] [id number], INHALE 1 PUFF BY INHALATION ROUTE 2 TIMES EVERY DAY IN THE MORNING AND EV... Start Date: 02/25/15 Status: Ordered Atrovent 42 mcg/inh nasal spray 2 sprays, Nasal, TID, # 2 Each, 5 Refill(s), Pharmacy: [facility] [address] Start Date: 06/11/15 Stop Date: 06/11/16 Status: Ordered Carafate 1 g oral tablet 1 g 1 tabs, Oral, QID, Dissolve in water and drink, # 40 tabs, 0 Refill(s) Start Date: 08/31/15 Status: Ordered cetirizine 10 mg oral tablet 10 mg 1 tabs, Oral, Daily, # 30 tabs, 5 Refill(s), Pharmacy: [facility] [address], 1 tabs Oral Daily Start Date: 09/01/15 Status: Ordered Linzess 290 mcg oral capsule 1 caps, Oral, Daily, # 30 caps, 6 Refill(s), Pharmacy: [facility] [address], 1 caps Oral Daily Start Date: 02/24/15 Status: Ordered loratadine 10 mg oral tablet 10 mg, Oral, Daily, # 30 tabs, 5 Refill(s), Pharmacy: [facility] [address] , 10 mg Oral Daily Start Date: [...] # 1 Each, 1 Refill(s), Pharmacy : [facility] [id number] Start Date: 06/11/15 Status: Ordered traZODone Oral, 0 Refill(s) Start Date: 04/05/15 Status: Ordered Viibryd Oral, Daily, 0 Refill(s) Start Date: 04/05/15 Status: Ordered Vitamin D3 1,000 Intl_Units, Oral, Daily, 0 Refill(s) Start Date: 10/26/14 Status: Ordered Results Hematology Most recent to 1 oldest [Reference Range]: WBC [4.8-10.8 6.8 10*3/uL 10*3/uL] (04/20/15 4:30 AM) RBC [4.00-5.20 3.91 10*6/uL 10*6/uL] *LOW* (04/20/15 4:30 AM) Hgb [12.0-16.0 10.5 gm/dL gm/dL] *LOW* (04/20/15 4:30 AM) Hct [37.0-47.0 %] 33.6 % *LOW* (04/20/15 4:30 AM) MCV [82.0-99.0 fL] 85.9 fL (04/20/15 4:30 AM) MCH [27.0-32.0 pg] 26.9 pg *LOW* (04/20/15 4:30 AM) MCHC [32.0-36.0 31.3 gm/dL gm/dL] *LOW* (04/20/15 4:30 AM) RDW [11.5-14.5 %] 16.8 % *HI* (04/20/15 4:30 AM) Platelet [150-400 247 10*3/uL 10*3/uL] (04/20/15 4:30 AM) MPV [9.4-12.4 fL] 9.4 fL (04/20/15 4:30 AM) Immature 0.1 % Granulocytes (04/20/15:30 AM) [0.0-1.0 %] Neutrophils [51-75 63 % %] (04/20/15 4:30 AM) Lymphocytes [20-46 27 % %] (04/20/15 4:30 AM) Monocytes [4-11 %] 7 % (04/20/15 4:30 AM) Eosinophils [0-4 %] 2 % (04/20/15 4:30 AM) Basophils [0-2 %] 0 % (04/20/15 4:30 AM) Neutro Absolute 4.30 10*3 [1.90-7.00 10*3] (04/20/15 4:30 AM) Lymph Absolute 1.85 10*3 [0.80-3.30 10*3] (04/20/15 4:30 AM) [place] Absolute 0.50 10*3 [0.30-1.00 10*3] (04/20/15 4:30 AM) Eos Absolute 0.10 10*3 [0.00-0.50 10*3] (04/20/15 4:30 AM) Baso Absolute 0.03 10*3 [0.00-0.20 10*3] (04/20/15 4:30 AM) Chemistry Most recent to 1 oldest [Reference Range]: Sodium Lvl [136-144 140 mEq/L mEq/L] (04/20/15 4:30 AM) Potassium Lvl 4.2 mEq/L [3.6-5.1 mEq/L] (04/20/15 4:30 AM) Chloride [99-109 109 mEq/L mEq/L] (04/20/15 4:30 AM) CO2 [22-32 mEq/L] 24 mEq/L (04/20/15 4:30 AM) AGAP [3-20] 7 (04/20/15 4:30 AM) BUN [4-20 mg/dL] 9 mg/dL (04/20/15 4:30 AM) Glucose Lvl [70-100 93 mg/dL mg/dL] (04/20/15 4:30 AM) Creatinine Lvl 0.59 mg/dL [0.44-1.03 mg/dL] (04/20/15 4:30 AM) eGFR [>60] >60 1 (04/20/15 4:30 AM) Calcium Lvl 8.8 mg/dL [8.6-10.0 mg/dL] (04/20/15 4:30 AM) Albumin Lvl [3.5-4.8 3.0 gm/dL gm/dL] *LOW* (04/20/15 4:30 AM) Total Protein 6.7 gm/dL [6.1-7.9 gm/dL] (04/20/15 4:30 AM) Globulin [1.9-4.3 3.7 gm/dL gm/dL] (04/20/15 4:30 AM) ALT [14-54 U/L] 13 U/L *LOW* (04/20/15 4:30 AM) AST [15-41 U/L] 10 U/L *LOW* (04/20/15 4:30 AM) Alk Phos [26-104 75 U/L U/L] (04/20/15 4:30 AM) Bili Total [0.2-1.2 0.4 mg/dL 2 mg/dL] (04/20/15 4:30 AM) Lipase Lvl [8-48 17 U/L U/L] (04/20/15 4:30 AM) 1Result Comment: Multiply eGFR results by 1.21 for race. 2Result Comment: Naproxen, specifically the metabolite O-desmethylnaproxen, may cause spurious elevation in Total Bilirubin levels. Urinalysis Most recent to 1 oldest [Reference Range]: UA Color Yellow (04/20/15 4:21 AM) UA Appear Clear (04/20/15 4:21 AM) UA pH [5.0-8.0] 8.0 (04/20/15 4:21 AM) UA Leuk Est Trace [Negative] *ABN* (04/20/15 4:21 AM) UA Nitrite Negative [Negative] (04/20/15 4:21 AM) UA Protein Negative [Negative] (04/20/15 4:21 AM) UA Glucose Negative [Negative] (04/20/15 4:21 AM) UA Ketones Negative [Negative] (04/20/15 4:21 AM) UA Urobilinogen 1.0 mg/dL [<1.0 mg/dL] (04/20/15 4:21 AM) UA Bili [Negative] Negative (04/20/15 4:21 AM) UA Blood [Negative] Pos 3+ *ABN* (04/20/15 4:21 AM) UA Spec Grav 1.023 [1.003-1.030] (04/20/15 4:21 AM) Type Clean Catch (04/20/15 4:21 AM) UA WBC [0-4] 2-5 (04/20/15 4:21 AM) UA RBC [0-2] 20-50 *ABN* (04/20/15 4:21 AM) Epithelial Cells 2-5 (04/20/15 4:21 AM) UA Bacteria Rare (04/20/15 4:21 AM) Immunizations Vaccine Date Refusal Reason pneumococcal 23-polyvalent vaccine 11/18/14 Procedures Procedure Date Related Diagnosis Body Site Esophagogastroduodenoscopy Balloon Dilat1 02/14/15 Examination Under Anesthesia2 02/14/15 Adenoidectomy Bilateral tubal ligation Bronchoscope Cardiac catheterization, combined right and left heart Tonsillectomy Tympanostomy [place] tooth 1auto-populated from documented surgical case 2auto-populated from documented surgical case Social History Social History Type Response Smoking Status Former smoker; Type: Cigarettes; Tobacco use per day: 1 Pack1 1quit 05/2015 Assessment and Plan No data available for this section
--- OUTSIDE RECORDS SUMMARY | 2017-01-20 22:07 | XMS REPORT | Referral Summary ---
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 Name Role Phone [facility] Primary Care Physician Unavailable Encounter [facility] [id number] Date(s): 06/11/15 - 06/11/15 [facility] [address] [place] [address] [place] Discharge Diagnosis: Asthma Discharge Diagnosis: Dermatitis Discharge Diagnosis: Non-allergic rhinitis Discharge Disposition: 01-Home or Self Care Attending Physician: Vandana French MD Admitting Physician: Vandana French MD Referring Physician: Vandana French MD Vital Signs Most recent to 1 oldest [Reference Range]: Blood Pressure 124/78 mmHg [90-140/60-90 mmHg] (06/11/15 1:49 PM) Problem List Condition Effective Dates Status [...] pain, # 300 mL, 0 Refill(s), Pharmacy: [facility] [address], 10 mL Oral q6hr,PRN:as needed for pain Start Date: 12/24/14 Status: Ordered Advair Diskus 250 mcg-50 mcg inhalation powder See Instructions, INHALE 1 PUFF BY INHALATION ROUTE 2 TIMES EVERY DAY IN THE MORNING AND EVENING APPROXIMATELY 12 HOURS APART, # 1 unknown unit, eRx: [facility] [id number], INHALE 1 PUFF BY INHALATION ROUTE 2 TIMES EVERY DAY IN THE MORNING AND EV... Start Date: 02/25/15 Status: Ordered Carafate 1 g oral tablet 1 g 1 tabs, Oral, QID, Dissolve in water and drink, # 40 tabs, 0 Refill(s) Start Date: 08/31/15 Status: Ordered cetirizine 10 mg oral tablet 10 mg 1 tabs, Oral, Daily, # 30 tabs, 5 Refill(s), Pharmacy: [facility] [address], 1 tabs Oral Daily Start Date: 09/01/15 Status: Ordered codeine-guaiFENesin 10 mg-300 mg/5 mL oral liquid 5 mL, Oral, q6hr, as needed for cough, # 120 mL, 0 Refill(s) Start Date: 12/21/15 Status: Ordered Flonase 50 mcg/inh nasal spray 2 sprays, Nasal, Daily, # 1 Each, 5 Refill(s), Pharmacy: [facility] [address] Start Date: 12/12/15 Status: Ordered ibuprofen 800 mg oral tablet 800 mg 1 tabs, Oral, TID, Pain, # 15 tabs, 0 Refill(s) Start Date: 12/07/15 Status: Ordered loratadine 10 mg oral tablet 10 mg, Oral, Daily, # 30 tabs, 5 Refill(s), Pharmacy: [facility] [address] , 10 mg Oral Daily Start Date: [...] # 1 Each, 1 Refill(s), Pharmacy : [facility] [id number] Start Date: 06/11/15 Status: Ordered Robitussin DM To Go 20 mg-200 mg/10 mL oral liquid 10 mL, Oral, q4hr, as needed for cough, # 100 mL, 0 Refill(s), Pharmacy: [facility] [address] Start Date: 12/12/15 Status: Ordered traZODone Oral, [...] Date: 12/21/15 Stop Date: 12/26/15 Status: Ordered Results No data available for this section Immunizations Vaccine Date Refusal Reason pneumococcal 23-polyvalent vaccine 11/18/14 Procedures Procedure Date Related Diagnosis Body Site Esophagogastroduodenoscopy Balloon Dilat1 02/14/15 Examination Under Anesthesia2 02/14/15 Adenoidectomy Bilateral tubal ligation Bronchoscope Cardiac catheterization, combined right and left heart Tonsillectomy Tympanostomy [place] tooth 1auto-populated from documented surgical case 2auto-populated from documented surgical case Social History Social History Type Response Smoking Status Former smoker; Type: Cigarettes; Tobacco use per day: 1 Pack1 , 2 1pt quit smoking 1 month ago 2quit 05/2015 Assessment and Plan Extracted from: Title: Office Visit Note Author: Vandana French MD Date: 06/11/15 Assessment/Plan Asthma Persistent, under good control. Continue with Advair 250/50 one puff twice a day and albuterol as needed, refill was provided. Advised to get flu vaccine. Ordered: Office Visit Level 4 Est 46365 Dermatitis Likely represents insect bites from bedbug infestation. I strongly recommend that she gets a pest roll forming machine set up mechanic to treat the problem. Mupirocin ointment was given to patient to use twice a day for total of 10 days on affected areas of skin superinfection. Ordered: Office Visit Level 4 Est 02991 Non-allergic rhinitis Patient seems to be bothered by significant postnasal drip and runny nose for which Atrovent nose spray was prescribed to use up to 3 times a day as needed and continue with daily loratadine. Ordered: Office Visit Level 4 Est 22107 Orders: albuterol, See Instructions, 2-4 puffs every 4-6 hrs prn., # 1 Each, 1 Refill(s), Pharmacy: [facility] [address] ipratropium nasal, 2 sprays, Nasal, TID, # 2 Each, 5 Refill(s), Pharmacy: [facility] [address] mupirocin topical, 1 ann marie, Topical, BID, X 10 days, # 22 g, 0 Refill(s), Pharmacy: [facility] [address]
--- OUTSIDE RECORDS SUMMARY | 2017-01-20 22:07 | XMS REPORT | Referral Summary ---
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 Name Role Phone Pardeep Poole Primary Care Physician [phone] Encounter [facility] Date(s): 01/31/15 - 01/31/15 [facility] [address] [place] [address] Discharge Diagnosis: Urinary tract infection Discharge Disposition: Home or Self Care Attending Physician: Jefferson Patricio MD Admitting Physician: Jefferson Patricio MD Vital Signs Most recent to 1 oldest [Reference Range]: Temperature Oral 36.8 degC [35.8-37.3 degC] (01/31/15 2:12 PM) Temperature Temporal 37.4 degC Artery [36.3-37.8 (01/31/15 5:04 PM) degC] Peripheral Pulse 93 bpm Rate [60-100 bpm] (01/31/15 5:04 PM) Respiratory Rate 18 br/min [14-20 br/min] (01/31/15 5:04 PM) Blood Pressure 105/75 mmHg [90-140/60-90 mmHg] (01/31/15 5:04 PM) Most recent to 1 oldest [Reference Range]: SpO2 95 % (01/31/15 5:04 PM) Problem List Condition Effective Dates Status [...] pain, # 300 mL, 0 Refill(s), Pharmacy: [facility] [address], 10 mL Oral q6hr,PRN:as needed for pain Start Date: 12/24/14 Status: Ordered Advair Diskus 250 mcg-50 mcg inhalation powder See Instructions, INHALE 1 PUFF BY INHALATION ROUTE 2 TIMES EVERY DAY IN THE MORNING AND EVENING APPROXIMATELY 12 HOURS APART, # 1 unknown unit, eRx: [facility] [id number], INHALE 1 PUFF BY INHALATION ROUTE 2 [...] # 22 g, 0 Refill(s) , Pharmacy: [facility] [address] Special Instructions: Apply in a thin film twice a day to area. Start Date: 01/23/15 Status: Ordered FLUoxetine 20 mg oral capsule 20 mg, Oral, qAM, # 30 caps, 2 Refill(s), Pharmacy: [facility] [address], 20 mg Oral qAM Start Date: 01/14/15 Status: Ordered imipramine 25 mg oral tablet 2 tabs, Oral, Bedtime (once a day), # 60 tabs, 3 Refill(s), Pharmacy: [facility] [address], 2 tabs Oral Bedtime (once a day) Start Date: 12/30/14 Status: Ordered Latuda 60 mg, Oral, qPM, with food, 0 Refill(s) Special Instructions: with food Start Date: 03/29/14 Status: Ordered levETIRAcetam 1,500 mg, Oral, BID, 0 Refill(s) Start Date: 11/18/14 Status: Ordered loratadine 10 mg oral tablet 10 mg, Oral, Daily, # 30 tabs, 5 Refill(s), Pharmacy: [facility] [address] , 10 mg Oral Daily Start Date: [...] 1 oldest [Reference Range]: WBC [4.8-10.8 K/uL] 6.8 K/uL (01/31/15 2:43 PM) RBC [4.00-5.20 M/uL] 4.35 M/uL (01/31/15 2:43 PM) Hgb [12.0-16.0 12.3 gm/dL gm/dL] (01/31/15 2:43 PM) Hct [37.0-47.0 %] 38.8 % (01/31/15 2:43 PM) MCV [82.0-99.0 fL] 89.2 fL (01/31/15 2:43 PM) MCH [27.0-32.0 pg] 28.3 pg (01/31/15 2:43 PM) MCHC [32.0-36.0 31.7 gm/dL gm/dL] *LOW* (01/31/15 2:43 PM) RDW [11.5-14.5 %] 15.7 % *HI* (01/31/15 2:43 PM) Platelet [150-400 236 K/uL K/uL] (01/31/15 2:43 PM) MPV [9.4-12.4 fL] 9.5 fL (01/31/15 2:43 PM) Immature 0.3 % Granulocytes (01/31/15 2:43 PM) [0.0-1.0 %] Neutrophils [51-75 66 % %] (01/31/15 2:43 PM) Lymphocytes [20-46 26 % %] (01/31/15 2:43 PM) Monocytes [4-11 %] 6 % (01/31/15 2:43 PM) Eosinophils [0-4 %] 2 % (01/31/15 2:43 PM) Basophils [0-2 %] 0 % (01/31/15 2:43 PM) Neutro Absolute 4.46 THOUS [1.90-7.00 THOUS] (01/31/15 2:43 PM) Lymph Absolute 1.73 THOUS [0.80-3.30 THOUS] (01/31/15 2:43 PM) [place] Absolute 0.42 THOUS [0.30-1.00 THOUS] (01/31/15 2:43 PM) Eos Absolute 0.14 THOUS [0.00-0.50 THOUS] (01/31/15 2:43 PM) Baso Absolute 0.01 THOUS [0.00-0.20 THOUS] (01/31/15 2:43 PM) Nucleated RBC 0.0 /100 WBC Automated [0 /100 (01/31/15 2:43 PM) WBC] Chemistry Most recent to 1 oldest [Reference Range]: Sodium Lvl [136-144 138 mEq/L mEq/L] (01/31/15 2:43 PM) Potassium Lvl 4.0 mEq/L [3.6-5.1 mEq/L] (01/31/15 2:43 PM) Chloride [99-109 108 mEq/L mEq/L] (01/31/15 2:43 PM) CO2 [22-32 mEq/L] 25 mEq/L (01/31/15 2:43 PM) AGAP [3-20] 5 (01/31/15 2:43 PM) BUN [4-20 mg/dL] 6 mg/dL (01/31/15 2:43 PM) Glucose Lvl [70-100 87 mg/dL mg/dL] (01/31/15 2:43 PM) Creatinine Lvl 0.66 mg/dL [0.44-1.03 mg/dL] (01/31/15 2:43 PM) eGFR [>60] >60 2 (01/31/15 2:43 PM) Calcium Lvl 9.1 mg/dL [8.6-10.0 mg/dL] (01/31/15 2:43 PM) Albumin Lvl [3.5-4.8 3.3 gm/dL gm/dL] *LOW* (01/31/15 2:43 PM) Total Protein 7.1 gm/dL [6.1-7.9 gm/dL] (01/31/15 2:43 PM) Globulin [1.9-4.3 3.8 gm/dL gm/dL] (01/31/15 2:43 PM) ALT [14-54 unit/L] 14 unit/L (01/31/15 2:43 PM) AST [15-41 unit/L] 13 unit/L *LOW* (01/31/15 2:43 PM) Alk Phos [26-104 84 unit/L unit/L] (01/31/15 2:43 PM) Bili Total [0.2-1.2 0.5 mg/dL 1 mg/dL] (01/31/15 2:43 PM) U Beta hCG Ql Negative [Negative] (01/31/15 2:44 PM) 1Result Comment: Naproxen, specifically the metabolite O-desmethylnaproxen, may cause spurious elevation in Total Bilirubin levels. 2Result Comment: Multiply eGFR results by 1.21 for race. Urinalysis Most recent to 1 oldest [Reference Range]: UA Color Lt Yellow (01/31/15 2:43 PM) UA Appear Clear (01/31/15 2:43 PM) UA pH [5.0-8.0] 7.0 (01/31/15 2:43 PM) UA Leuk Est Pos 1+ [Negative] *ABN* (01/31/15 2:43 PM) UA Nitrite Negative [Negative] (01/31/15 2:43 PM) UA Protein Negative [Negative] (01/31/15 2:43 PM) UA Glucose Negative [Negative] (01/31/15 2:43 PM) UA Ketones Negative [Negative] (01/31/15 2:43 PM) UA Urobilinogen Negative [<1.0] (01/31/15 2:43 PM) UA Bili [Negative] Negative (01/31/15 2:43 PM) UA Blood [Negative] Pos 1+ *ABN* (01/31/15 2:43 PM) UA Spec Grav 1.009 [1.003-1.030] (01/31/15 2:43 PM) Type Clean Catch (01/31/15 2:43 PM) UA WBC [0-4] 2-5 (01/31/15 2:43 PM) UA RBC [0-2] 0-2 (01/31/15 2:43 PM) Epithelial Cells 2-5 (01/31/15 2:43 PM) UA Bacteria Rare (01/31/15 2:43 PM) UA Mucous Present (01/31/15 2:43 PM) Immunizations Vaccine Date Refusal Reason pneumococcal 23-polyvalent vaccine 11/18/14 Procedures Procedure Date Related Diagnosis Body Site Adenoidectomy Bilateral tubal ligation Bronchoscope Tonsillectomy Tympanostomy [place] tooth Social History Social History Type Response Smoking Status Current every day smoker; Type: Cigarettes; Tobacco use per day: Pack Assessment and Plan No data available for this section
--- OUTSIDE RECORDS SUMMARY | 2017-01-20 22:07 | XMS REPORT | Referral Summary ---
Author Author [facility] Organization 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 [address] [place], [place] [address] Discharge Disposition: 01-Home or Self Care Attending Physician: Edouard Crisostomo MD Vital Signs No data available for [...] HOURS APART, # 1 unknown unit, eRx: [facility] [id number], INHALE 1 PUFF BY INHALATION ROUTE 2 TIMES EVERY DAY IN THE MORNING AND EV... Start Date: 02/25/15 Status: Ordered Carafate 1 g/10 mL oral suspension 10 mL, Oral, QIDACHS, # 280 mL, 0 Refill(s), Pharmacy: [facility], 10 mL Oral QIDACHS Start Date: 02/15/16 Status: Ordered cetirizine 10 mg oral tablet 10 mg 1 tabs, Oral, Daily, # 30 tabs, 5 Refill(s), Pharmacy: [facility] [address], 1 tabs Oral Daily Start Date: 09/01/15 [...] prn, # 5 mL, 5 Refill(s), Pharmacy: [facility] Start Date: 02/02/16 Status: Ordered Pepcid 20 mg oral tablet 20 mg 1 tabs, Oral, BID, # 60 tabs, 0 Refill(s) Start Date: 09/14/15 Status: Ordered ProAir HFA 90 mcg/inh inhalation aerosol See Instructions, 2-4 puffs every 4-6 hrs prn., # 1 Each, 1 Refill(s), Pharmacy : [facility] [id number] Start Date: 06/11/15 Status: Ordered Singulair qPM, [...] combined right and left heart Tonsillectomy Tympanostomy [place] tooth 1auto-populated from documented surgical case 2auto-populated [...]
--- OUTSIDE RECORDS SUMMARY | 2017-01-20 22:07 | XMS REPORT | Referral Summary ---
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 Name Role Phone Imelda Martin Primary Care Physician [phone] Encounter [facility] Date(s): 05/19/15 - 05/19/15 [facility] [address], [place] [address] Discharge Diagnosis: Exposure to chemical inhalation Final: Contact with and (suspected) exposure to other potentially hazardous chemicals Final: Asthma, unspecified Discharge Disposition: 01-Home or Self Care Attending Physician: Maia Strong MD Admitting Physician: Maia Strong MD Referring Physician: Self Referred, X Vital Signs Most recent to 1 oldest [Reference Range]: Temperature Temporal 36.4 degC Artery [36.3-37.8 (05/19/15 3:57 PM) degC] Peripheral Pulse 82 bpm Rate [60-100 bpm] (05/19/15 5:55 PM) Respiratory Rate 18 br/min [14-20 br/min] (05/19/15 5:55 PM) Blood Pressure 129/97 mmHg [90-140/60-90 mmHg] (05/19/15 5:55 PM) SpO2 99 % (05/19/15 5:55 PM) Problem List Condition Effective Dates Status [...] pain, # 300 mL, 0 Refill(s), Pharmacy: [facility] [address], 10 mL Oral q6hr,PRN:as needed for pain Start Date: 12/24/14 Status: Ordered Advair Diskus 250 mcg-50 mcg inhalation powder See Instructions, INHALE 1 PUFF BY INHALATION ROUTE 2 TIMES EVERY DAY IN THE MORNING AND EVENING APPROXIMATELY 12 HOURS APART, # 1 unknown unit, eRx: [facility] [id number], INHALE 1 PUFF BY INHALATION ROUTE 2 TIMES EVERY DAY IN THE MORNING AND EV... Start Date: 02/25/15 Status: Ordered Atrovent 42 mcg/inh nasal spray 2 sprays, Nasal, TID, # 2 Each, 5 Refill(s), Pharmacy: [facility] [id number] Start Date: 06/11/15 Stop Date: 06/11/16 Status: Ordered Carafate 1 g oral tablet 1 g 1 tabs, Oral, QID, Dissolve in water and drink, # 40 tabs, 0 Refill(s) Start Date: 08/31/15 Status: Ordered cetirizine 10 mg oral tablet 10 mg 1 tabs, Oral, Daily, # 30 tabs, 5 Refill(s), Pharmacy: [facility] [address], 1 tabs Oral Daily Start Date: 09/01/15 Status: Ordered Linzess 290 mcg oral capsule 1 caps, Oral, Daily, # 30 caps, 6 Refill(s), Pharmacy: [facility] [address], 1 caps Oral Daily Start Date: 02/24/15 Status: Ordered loratadine 10 mg oral tablet 10 mg, Oral, Daily, # 30 tabs, 5 Refill(s), Pharmacy: [facility] [address] , 10 mg Oral Daily Start Date: [...] # 1 Each, 1 Refill(s), Pharmacy : [facility] [id number] Start Date: 06/11/15 Status: Ordered traZODone Oral, [...] combined right and left heart Tonsillectomy Tympanostomy [place] tooth 1auto-populated from documented surgical case 2auto-populated from documented surgical case Social History Social History Type Response Smoking Status Never smoker Assessment and Plan No data available for this section
--- OUTSIDE RECORDS SUMMARY | 2017-01-20 22:07 | XMS REPORT | Referral Summary ---
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 Primary Care Physician Unavailable Encounter [facility] [id number] Date(s): 01/07/16 - 01/07/16 [facility] [address] [place] [address] Discharge Disposition: Left Against Medical Advice Vital Signs Most recent to 1 oldest [Reference Range]: Temperature Oral 36.8 degC [35.8-37.3 degC] (01/07/16 4:16 PM) Peripheral Pulse 111 bpm Rate [60-100 bpm] *HI* (01/07/16 4:16 PM) Respiratory Rate 20 br/min [14-20 br/min] (01/07/16 4:16 PM) Blood Pressure 120/86 mmHg [90-140/60-90 mmHg] (01/07/16 4:16 PM) SpO2 99 % (01/07/16 4:16 PM) Problem List Condition Effective Dates Status [...] # 300 mL, 0 Refill(s), Pharmacy: [facility] [address], 10 mL Oral q6hr,PRN:as needed for pain Start Date: 12/24/14 Status: Ordered Advair Diskus 250 mcg-50 mcg inhalation powder See Instructions, INHALE 1 PUFF BY INHALATION ROUTE 2 TIMES EVERY DAY IN THE MORNING AND EVENING APPROXIMATELY 12 HOURS APART, # 1 unknown unit, eRx: [facility] [id number], INHALE 1 PUFF BY INHALATION ROUTE 2 [...] # 30 tabs, 5 Refill(s), Pharmacy: [facility] [id number], 1 tabs Oral Daily Start Date: 09/01/15 Status: Ordered codeine-guaiFENesin 10 mg-300 mg/5 mL oral liquid 5 mL, Oral, q6hr, as needed for cough, # 120 mL, 0 Refill(s) Start Date: 12/21/15 Status: Ordered Flonase 50 mcg/inh nasal spray 2 sprays, Nasal, Daily, # 1 Each, 5 Refill(s), Pharmacy: [facility] [id number] Start Date: 12/12/15 Status: Ordered ibuprofen 800 mg oral tablet 800 mg 1 tabs, Oral, TID, Pain, # 15 tabs, 0 Refill(s) Start Date: 12/07/15 Status: Ordered loratadine 10 mg oral tablet 10 mg, Oral, Daily, # 30 tabs, 5 Refill(s), Pharmacy: [facility] [id number] , 10 mg Oral Daily Start Date: [...] 1 Each, 1 Refill(s), Pharmacy : [facility] [id number] Start Date: 06/11/15 Status: Ordered Robitussin DM To Go 20 mg-200 mg/10 mL oral liquid 10 mL, Oral, q4hr, as needed for cough, # 100 mL, 0 Refill(s), Pharmacy: [facility] [id number] Start Date: 12/12/15 Status: Ordered traZODone Oral, [...] combined right and left heart Tonsillectomy Tympanostomy [place] tooth 1auto-populated from documented surgical case 2auto-populated [...]
--- OUTSIDE RECORDS SUMMARY | 2017-01-20 22:07 | XMS REPORT | Referral Summary ---
Author Organization Unknown Address Unknown Phone Unavailable Care Team Providers Care Tavern Operator Name Role Phone Pardeep Poole Primary Care Physician [phone] Encounter [facility] Date(s): 11/21/14 - 11/21/14 [facility] [address] [place] [address] [place], [place] [address] Discharge Diagnosis: Mild acid reflux Discharge Diagnosis: Chest wall pain Discharge Disposition: Home or Self Care Attending Physician: Jace Sexton MD Admitting Physician: Jose Daily MD Vital Signs Most recent to 1 oldest [Reference Range]: Temperature Oral 36.5 degC [35.8-37.3 degC] (11/21/14 9:08 PM) Peripheral Pulse 87 bpm Rate [60-100 bpm] (11/21/14 10:50 PM) Respiratory Rate 18 br/min [14-20 br/min] (11/21/14 10:50 PM) Blood Pressure 115/81 mmHg [90-140/60-90 mmHg] (11/21/14 10:50 PM) Most recent to 1 oldest [Reference Range]: SpO2 96 % (11/21/14 10:50 PM) Problem List Condition Effective Dates Status [...] 0 Refill(s) Start Date: 03/29/14 Status: Ordered Carafate 1 g/10 mL oral suspension 10 mL, Oral, QIDACHS, # 1,200 mL, 6 Refill(s), Pharmacy: [id number], 10 mL Oral QIDACHS Start Date: 10/07/14 Status: Ordered FLUoxetine 20 mg, Oral, qAM, [...] # 1 Each, 1 Refill(s), Pharmacy : [facility] [id number] Special Instructions: 2-4 puffs every 4-6 hrs [...] Adenoidectomy Bilateral tubal ligation Bronchoscope Tonsillectomy Tympanostomy [place] tooth Social History Social History Type Response Smoking Status Current every day smoker; Type: Cigarettes; Tobacco use per day: 1-2 cigarettes a day Assessment and Plan No data available for this section
--- OUTSIDE RECORDS SUMMARY | 2017-01-20 22:07 | XMS REPORT ---
Author Author [facility], [facility] - Organization Unknown Address Unknown Phone [...] not been performed. Results LAB--BEDSIDE TESTING from 06/02/2013 7:43 PMPregnancy Screen, Urine NPT Negative LAB--BEDSIDE TESTING from 06/02/2013 7:48 PMPregnancy Screen, Urine NPT Negative LAB--URINE TESTS from 06/02/2013 7:31 PMAppearance Clear Bilirubin Negative (Negative ) Blood Negative (Negative ) Color Dk Yellow Glucose Negative (Negative ) Ketones, Urine Negative (Negative ) Leukocytes Esterase Pos 1+ A (Negative ) Nitrites Negative (Negative ) pH, Urine 7.0 (5.0-8.0 ) Protein Negative (Negative ) Specific Bernie 1.027 (1.003-1.030 ) Collection Type: Clean Catch Urobilinogen 1.0 mg/dL (-<1.0 mg/dL) Bacteria Occasional A Epithelial Cells 2-5 /HPF Mucus Present RBC 0-2 /HPF (0-2 /HPF) WBC 2-5 /HPF (0-4 /HPF)
--- OUTSIDE RECORDS SUMMARY | 2017-01-20 22:07 | XMS REPORT | Referral Summary ---
Author Author [facility] Organization [facility] Address Unknown Phone Unavailable Care Team Providers Care Healthcare Risk Control Consultant Name Role Phone [facility] Primary Care Physician Unavailable Encounter [facility] [id number] Date(s): 01/12/16 - 01/12/16 [facility] [address] [place] [address] Discharge Diagnosis: Nonspecific abdominal pain Discharge Disposition: 01-Home or Self Care Attending Physician: Moses Kay JR, MD Admitting Physician: Moses Kay JR, MD Vital Signs Most recent to 1 oldest [Reference Range]: Temperature Oral 36.5 degC [35.8-37.3 degC] (01/12/16 7:06 PM) Peripheral Pulse 61 bpm Rate [60-100 bpm] (01/12/16 8:45 PM) Heart Rate Monitored 72 bpm [60-100 bpm] (01/12/16 9:24 PM) Respiratory Rate 20 br/min [14-20 br/min] (01/12/16 8:41 PM) Blood Pressure 90/60 mmHg [90-140/60-90 mmHg] (01/12/16 9:24 PM) Mean Arterial 67 mmHg Pressure, Cuff (01/12/16 9:24 PM) SpO2 98 % (01/12/16 9:24 PM) Problem List Condition Effective Dates Status [...] pain, # 300 mL, 0 Refill(s), Pharmacy: [id number], 10 mL Oral q6hr,PRN:as needed for pain Start Date: 12/24/14 Status: Ordered Advair Diskus 250 mcg-50 mcg inhalation powder See Instructions, INHALE 1 PUFF BY INHALATION ROUTE 2 TIMES EVERY DAY IN THE MORNING AND EVENING APPROXIMATELY 12 HOURS APART, # 1 unknown unit, eRx: [id number], INHALE 1 PUFF BY INHALATION ROUTE 2 [...] Daily, # 30 tabs, 5 Refill(s), Pharmacy: [facility] [id number], 1 tabs Oral Daily Start Date: 09/01/15 Status: Ordered codeine-guaiFENesin 10 mg-300 mg/5 mL oral liquid 5 mL, Oral, q6hr, as needed for cough, # 120 mL, 0 Refill(s) Start Date: 12/21/15 Status: Ordered Flonase 50 mcg/inh nasal spray 2 sprays, Nasal, Daily, # 1 Each, 5 Refill(s), Pharmacy: [facility] [id number] Start Date: 12/12/15 Status: Ordered ibuprofen 800 mg oral tablet 800 mg 1 tabs, Oral, TID, Pain, # 15 tabs, 0 Refill(s) Start Date: 12/07/15 Status: Ordered loratadine 10 mg oral tablet 10 mg, Oral, Daily, # 30 tabs, 5 Refill(s), Pharmacy: [facility] [id number] , 10 mg Oral Daily Start Date: 01/14/15 Status: Ordered meloxicam 15 mg oral tablet 15 mg 1 tabs, Oral, Daily, # 30 tabs, 0 Refill(s) Start Date: 12/12/15 Status: Ordered [place] 7.5 mg-325 mg oral tablet See Instructions, [...] # 1 Each, 1 Refill(s), Pharmacy : [facility] [id number] Start Date: 06/11/15 Status: Ordered Robitussin DM To Go 20 mg-200 mg/10 mL oral liquid 10 mL, Oral, q4hr, as needed for cough, # 100 mL, 0 Refill(s), Pharmacy: [id number] Start Date: 12/12/15 Status: Ordered Vitamin D3 1,000 Intl_Units, Oral, Daily, 0 Refill(s) Start Date: 10/26/14 Status: Ordered Results Hematology Most recent to 1 oldest [Reference Range]: WBC [4.8-10.8 8.3 10*3/uL 10*3/uL] (01/12/16 8:02 PM) RBC [4.00-5.20] 4.41 (01/12/16 8:02 PM) Hgb [12.0-16.0 10.9 gm/dL gm/dL] *LOW* (01/12/16 8:02 PM) Hct [37.0-47.0 %] 35.5 % *LOW* (01/12/16 8:02 PM) MCV [82.0-99.0 fL] 80.5 fL *LOW* (01/12/16 8:02 PM) MCH [27.0-32.0 pg] 24.7 pg *LOW* (01/12/16 8: PM) MCHC [32.0-36.0 30.7 gm/dL gm/dL] *LOW* (01/12/16 8:02 PM) RDW [11.5-14.5 %] 17.4 % *HI* (01/12/16 8:02 PM) Platelet [150-400 266 10*3/uL 10*3/uL] (01/12/16 8:02 PM) MPV [9.4-12.4 fL] 9.8 fL (01/12/16 8:02 PM) Immature 0.1 % Granulocytes (01/12/16 8:02 PM) [0.0-1.0 %] Neutrophils [51-75 72 % %] (01/12/16 8:02 PM) Lymphocytes [20-46 19 % %] *LOW* (01/12/16 8:02 PM) Monocytes [4-11 %] 8 % (01/12/16 8:02 PM) Eosinophils [0-4 %] 1 % (01/12/16 8:02 PM) Basophils [0-2 %] 0 % (01/12/16 8:02 PM) Neutro Absolute 5.96 10*3 [1.90-7.00 10*3] (01/12/16 8:02 PM) Lymph Absolute 1.58 10*3 [0.80-3.30 10*3] (01/12/16 8:02 PM) [place] Absolute 0.65 10*3 [0.30-1.00 10*3] (01/12/16 8:02 PM) Eos Absolute 0.04 10*3 [0.00-0.50 10*3] (01/12/16 8:02 PM) Baso Absolute 0.02 10*3 [0.00-0.20 10*3] (01/12/16 8:02 PM) Chemistry Most recent to 1 oldest [Reference Range]: Sodium Lvl [136-144 139 mEq/L mEq/L] (01/12/16 8:02 PM) Potassium Lvl 3.9 mEq/L [3.6-5.1 mEq/L] (01/12/16 8:02 PM) Chloride [99-109 104 mEq/L mEq/L] (01/12/16 8:02 PM) CO2 [22-32 mEq/L] 28 mEq/L (01/12/16 8:02 PM) AGAP [3-20] 7 (01/12/16 8:02 PM) BUN [4-20 mg/dL] 9 mg/dL (01/12/16 8:02 PM) Glucose Lvl [70-100 86 mg/dL mg/dL] (01/12/16 8:02 PM) Creatinine Lvl 0.75 mg/dL [0.44-1.03 mg/dL] (01/12/16 8:02 PM) eGFR [>60] >60 1 (01/12/16 8:02 PM) Calcium Lvl 9.0 mg/dL [8.6-10.0 mg/dL] (01/12/16 8:02 PM) Albumin Lvl [3.5-4.8 3.4 gm/dL gm/dL] *LOW* (01/12/16 8:02 PM) Total Protein 7.4 gm/dL [6.1-7.9 gm/dL] (01/12/16 8:02 PM) Globulin [1.9-4.3 4.0 gm/dL gm/dL] (01/12/16 8:02 PM) ALT [14-54 U/L] 13 U/L *LOW* (01/12/16 8:02 PM) AST [15-41 U/L] 14 U/L *LOW* (01/12/16 8:02 PM) Alk Phos [26-104 90 U/L U/L] (01/12/16 8:02 PM) Bili Total [0.2-1.2 0.7 mg/dL 2 mg/dL] (01/12/16 8:02 PM) Lipase Lvl [8-48 24 U/L U/L] (01/12/16 8:02 PM) 1Result Comment: Multiply eGFR results by 1.21 for race. 2Result Comment: Naproxen, specifically the metabolite O-desmethylnaproxen, may cause spurious elevation in Total Bilirubin levels. Urinalysis Most recent to 1 oldest [Reference Range]: UA Color Yellow (01/12/16 8:02 PM) UA Appear Clear (01/12/16 8:02 PM) UA pH [5.0-8.0] 7.0 (01/12/16 8:02 PM) UA Leuk Est Trace [Negative] *ABN* (01/12/16 8:02 PM) UA Nitrite Negative [Negative] (01/12/16 8:02 PM) UA Protein Negative [Negative] (01/12/16 8:02 PM) UA Glucose Negative [Negative] (01/12/16 8:02 PM) UA Ketones Negative [Negative] (01/12/16 8:02 PM) UA Urobilinogen Negative [<1.0] (01/12/16 8:02 PM) UA Bili [Negative] Negative (01/12/16 8:02 PM) UA Blood [Negative] Negative (01/12/16 8:02 PM) UA Spec Grav 1.015 [1.003-1.030] (01/12/16 8:02 PM) Type Not Specified (01/12/16 8:02 PM) UA WBC [0-4] 0-2 (01/12/16 8:02 PM) UA RBC [0-2] 0-2 (01/12/16 8:02 PM) Epithelial Cells 0-2 (01/12/16 8:02 PM) UA Bacteria Occasional *ABN* (01/12/16 8:02 PM) UA Mucous Present (01/12/16 8:02 PM) Immunizations Vaccine Date Refusal Reason pneumococcal 23-polyvalent vaccine 11/18/14 Procedures Procedure Date Related Diagnosis Body Site Esophagogastroduodenoscopy Foreign Body 01/06/16 Removal1 Procedure with Anesthesia2 01/06/16 Esophagogastroduodenoscopy Balloon Dilat3 02/14/15 Examination Under Anesthesia4 02/14/15 Adenoidectomy Bilateral tubal ligation Bronchoscope Cardiac catheterization, combined right and left heart Tonsillectomy Tympanostomy [place] tooth 1auto-populated from documented surgical case 2auto-populated [...]
--- OUTSIDE RECORDS SUMMARY | 2017-01-20 22:07 | XMS REPORT ---
Author Author GENERATED, SYSTEM Organization Unknown Address Unknown Phone Unavailable Care Team Providers Care Electrochemist Name Role Phone UNASSIGNED DOCTOR MD LOLIS DOCTOR PP [phone] Reason For Visit Chief Complaint NECK PAIN UNABLE TO MOVE Social History Functional Status Vital Signs Results CT Scan from 01/07/2016 9:18 PMCT SPINE CERVICAL W/O CONTRAST History: neck pain . 07/26, pt c/o neck pain that began this am; states pain is everywhere in her neck. Priors: None. Findings: Cervical alignment is within normal limits. There is no acute fracture. Disc spaces are well maintained. No focal disc protrusions or significant central spinal stenosis is identified. The soft tissues are unremarkable. The lung apices are unremarkable. Impression: Unremarkable CT of the cervical spine. Electronically signed by: Candelaria Barraza MD Dictated: 01/08/2016 08:15 Problems Encounter Diagnosis No relevant problems exist. [...]
--- OUTSIDE RECORDS SUMMARY | 2017-01-20 22:07 | XMS REPORT | Referral Summary ---
Author Author [facility] Organization [facility] Address Unknown Phone Unavailable Care Team Providers Care Brush Operator Name Role Phone Imelda Martin Primary Care Physician [phone] Encounter [facility] Date(s): 10/17/16 - 10/17/16 [facility] [address] [place] [address] Discharge Diagnosis: Chest wall pain Discharge Disposition: 01-Home or Self Care Attending Physician: Vance Lei MD Admitting Physician: Vance Lei MD Vital Signs Most recent to 1 oldest [Reference Range]: Temperature Oral 36.8 degC [35.8-37.3 degC] (10/17/16 1:08 PM) Peripheral Pulse 91 bpm Rate [60-100 bpm] (10/17/16 1:08 PM) Respiratory Rate 20 br/min [14-20 br/min] (10/17/16 1:08 PM) Blood Pressure 121/83 mmHg [90-140/60-90 mmHg] (10/17/16 1:08 PM) SpO2 98 % (10/17/16 1:08 PM) Problem List Condition Effective Dates Status [...] QIDACHS, # 280 mL, 0 Refill(s), Pharmacy: [facility], 10 mL Oral QIDACHS Start [...] [facility], 1 tabs Oral BID Start Date: 07/12/16 Status: Ordered Keppra 500 mg oral tablet 500 mg 1 tabs, Oral, BID, # 60 tabs, 0 Refill(s) Start Date: 04/21/16 Stop Date: 05/21/16 Status: Ordered Macrobid 100 mg oral capsule 100 mg 1 caps, Oral, BID, X 7 days, # 14 caps, 0 Refill(s) Start Date: 10/12/16 Stop Date: 10/19/16 Status: Ordered paliperidone 3 mg oral tablet, [...] combined right and left heart Tonsillectomy Tympanostomy [place] tooth 1auto-populated from documented surgical case 2auto-populated from documented surgical case 3auto-populated from documented surgical case 4auto-populated from documented surgical case 5auto-populated from documented surgical case Social History Social History Type Response Smoking Status Never smoker Assessment and Plan No data available for this section
--- OUTSIDE RECORDS SUMMARY | 2017-01-20 22:07 | XMS REPORT | Referral Summary ---
Author Author [facility] Organization [facility] Address Unknown Phone Unavailable Care Team Providers Care Trademark Attorney Name Role Phone Imelda Martin Primary Care Physician [phone] Encounter Date(s): 03/04/15 - 03/04/15 [facility] [address] [place], [place] [address] Discharge Diagnosis: Chronic abdominal pain Final: ABDOMINAL PAIN, OTHER SPECIFIED SITE; MULTIPLE SITES Final: Other chronic pain Final: DIARRHEA Final: TOBACCO USE DISORDER Discharge Diagnosis: Diarrhea Discharge Disposition: 01-Home or Self Care Attending Physician: Santos Tesfaye MD Admitting Physician: Santos Tesfaye MD Vital Signs Most recent to 1 oldest [Reference Range]: Temperature Temporal 36.5 degC Artery [36.3-37.8 (03/04/15 3:58 PM) degC] Peripheral Pulse 91 bpm Rate [60-100 bpm] (03/04/15 6:31 PM) Respiratory Rate 16 br/min [14-20 br/min] (03/04/15 6:31 PM) Systolic Blood 125 mmHg Pressure [90-140 (03/04/15 6:31 PM) mmHg] Diastolic Blood 90 mmHg Pressure [60-90 (03/04/15 6:31 PM) mmHg] SpO2 99 % (03/04/15 6:31 PM) Problem List Condition Effective Dates Status [...] pain, # 300 mL, 0 Refill(s), Pharmacy: [facility] [address], 10 mL Oral q6hr,PRN:as needed for pain Start Date: 12/24/14 Status: Ordered Advair Diskus 250 mcg-50 mcg inhalation powder See Instructions, INHALE 1 PUFF BY INHALATION ROUTE 2 TIMES EVERY DAY IN THE MORNING AND EVENING APPROXIMATELY 12 HOURS APART, # 1 unknown unit, eRx: [facility] [id number], INHALE 1 PUFF BY INHALATION ROUTE 2 TIMES EVERY DAY IN THE MORNING AND EV... Start Date: 02/25/15 Status: Ordered albuterol 2.5 mg/3 mL (0.083%) inhalation solution 3 mL, Inhalation, q6hr (scheduled), # 60 Each, 1 Refill(s), Pharmacy: [facility] [id number], 3 mL Inhalation q6hr (scheduled) Start Date: 02/13/15 Status: Ordered Atrovent 42 mcg/inh nasal spray 2 sprays, Nasal, TID, # 2 Each, 5 Refill(s), Pharmacy: [facility] [id number] Start Date: 06/11/15 Stop Date: 06/11/16 Status: Ordered Carafate 1 g oral tablet 1 g 1 tabs, Oral, QID, Dissolve in water and drink, # 40 tabs, 0 Refill(s) Start Date: 08/31/15 Status: Ordered cetirizine 10 mg oral tablet 10 mg 1 tabs, Oral, Daily, # 30 tabs, 5 Refill(s), Pharmacy: [facility] [id number], 1 tabs Oral Daily Start Date: 09/01/15 Status: Ordered levETIRAcetam 500 mg oral tablet See Instructions, TAKE 3 TABLETS BY MOUTH TWICE DAILY, # 180 tabs, 12 Refill(s) , eRx: [facility] [id number], TAKE 3 TABLETS BY MOUTH TWICE DAILY Start Date: 02/27/15 Status: Ordered Linzess 290 mcg oral capsule 1 caps, Oral, Daily, # 30 caps, 6 Refill(s), Pharmacy: [facility] [address]69[address], 1 caps Oral Daily Start Date: 02/24/15 Status: Ordered loratadine 10 mg oral tablet 10 mg, Oral, Daily, # 30 tabs, 5 Refill(s), Pharmacy: [facility] [id number] , 10 mg Oral Daily Start Date: [...] # 1 Each, 1 Refill(s), Pharmacy : [facility] [id number] Start Date: 06/11/15 Status: Ordered traZODone Oral, [...] Most recent to 1 oldest [Reference Range]: Lipase Lvl [8-48 25 U/L U/L] (03/04/15 5:11 PM) Sodium Venous 140 mEq/L [136-144 mEq/L] (03/04/15 5:43 PM) Potassium Venous 3.9 mEq/L 1 [3.6-5.1 mEq/L] (03/04/15 5:43 PM) Calcium Ionized 1.22 mmol/L Venous [1.19-1.41 (03/04/15 5:43 PM) mmol/L] Total CO2 Venous 26 mEq/L [25-29 mEq/L] (03/04/15 5:43 PM) HGB Venous NPT 13.9 gm/dL [12.0-16.0 gm/dL] (03/04/15 5:43 PM) HCT Venous 41.0 % [37.0-47.0 %] (03/04/15 5:43 PM) Glucose Venous 93 mg/dL [70-100 mg/dL] (03/04/15 5:43 PM) BUN Venous [4-20] 6 (03/04/15 5:43 PM) Creatinine Venous 0.7 mg/dL [0.4-1.0 mg/dL] (03/04/15 5:43 PM) Venous CL [99-109 102 mEq/L mEq/L] (03/04/15 5:43 PM) Anion Gap, Darron 12 [3-20] (03/04/15 5:43 PM) 1Result Comment: This test was performed on a whole blood specimen. The presence or absence of hemolysis cannot be assessed. Hemolysis can falsely elevate potassium levels. Normals are for venous specimens only. Urinalysis Most recent to 1 oldest [Reference Range]: UA Color Lt Yellow (03/04/15 5:10 PM) UA Appear Clear (03/04/15 5:10 PM) UA pH [5.0-8.0] 7.0 (03/04/15 5:10 PM) UA Leuk Est Negative [Negative] (03/04/15 5:10 PM) UA Nitrite Negative [Negative] (03/04/15 5:10 PM) UA Protein Negative [Negative] (03/04/15 5:10 PM) UA Glucose Negative [Negative] (03/04/15 5:10 PM) UA Ketones Negative [Negative] (03/04/15 5:10 PM) UA Urobilinogen Negative [<1.0] (03/04/15 5:10 PM) UA Bili [Negative] Negative (03/04/15 5:10 PM) UA Blood [Negative] Negative (03/04/15 5:10 PM) UA Spec Grav 1.016 [1.003-1.030] (03/04/15 5:10 PM) Type Clean Catch (03/04/15 5:10 PM) Immunizations Vaccine Date Refusal Reason pneumococcal 23-polyvalent vaccine 11/18/14 Procedures Procedure Date Related Diagnosis Body Site Esophagogastroduodenoscopy Balloon Dilat1 02/14/15 Examination Under Anesthesia2 02/14/15 Adenoidectomy Bilateral tubal ligation Bronchoscope Cardiac catheterization, combined right and left heart Tonsillectomy Tympanostomy [place] tooth 1auto-populated from documented surgical case 2auto-populated from documented surgical case Social History Social History Type Response Smoking Status Former smoker; Type: Cigarettes; Tobacco use per day: 1 Pack1 1quit 05/2015 Assessment and Plan No data available for this section
--- OUTSIDE RECORDS SUMMARY | 2017-01-20 22:08 | XMS REPORT | Referral Summary ---
Author Author [facility] Organization [facility] Address Unknown Phone Unavailable Care Team Providers Care Export Administrator Name Role Phone [facility] Primary Care Physician Unavailable Encounter [facility] [id number] Date(s): 06/17/15 - 06/17/15 [facility] [address] [place], [place] [address] Final: Myalgia and myositis, unspecified Discharge Diagnosis: Musculoskeletal pain Discharge Disposition: 01-Home or Self Care Attending Physician: Chris Harris MD Admitting Physician: Chris Harris MD Vital Signs Most recent to 1 oldest [Reference Range]: Temperature Oral 37.1 degC [35.8-37.3 degC] (06/17/15 11:43 PM) Peripheral Pulse 89 bpm Rate [60-100 bpm] (06/17/15 11:43 PM) Respiratory Rate 17 br/min [14-20 br/min] (06/17/15 11:43 PM) Blood Pressure 101/75 mmHg [90-140/60-90 mmHg] (06/17/15 11:43 PM) SpO2 98 % (06/17/15 11:43 PM) Problem List Condition Effective Dates Status [...] pain, # 300 mL, 0 Refill(s), Pharmacy: [facility] [address]15, 10 mL Oral q6hr,PRN:as needed for pain Start Date: 12/24/14 Status: Ordered Advair Diskus 250 mcg-50 mcg inhalation powder See Instructions, INHALE 1 PUFF BY INHALATION ROUTE 2 TIMES EVERY DAY IN THE MORNING AND EVENING APPROXIMATELY 12 HOURS APART, # 1 unknown unit, eRx: [facility] [id number], INHALE 1 PUFF BY INHALATION ROUTE 2 [...] Daily, # 30 tabs, 5 Refill(s), Pharmacy: [facility] [id number], 1 tabs Oral Daily Start Date: 09/01/15 Status: Ordered codeine-guaiFENesin 10 mg-300 mg/5 mL oral liquid 5 mL, Oral, q6hr, as needed for cough, # 120 mL, 0 Refill(s) Start Date: 12/21/15 Status: Ordered Flonase 50 mcg/inh nasal spray 2 sprays, Nasal, Daily, # 1 Each, 5 Refill(s), Pharmacy: [facility] [id number] Start Date: 12/12/15 Status: Ordered ibuprofen 800 mg oral tablet 800 mg 1 tabs, Oral, TID, Pain, # 15 tabs, 0 Refill(s) Start Date: 12/07/15 Status: Ordered loratadine 10 mg oral tablet 10 mg, Oral, Daily, # 30 tabs, 5 Refill(s), Pharmacy: [facility] , 10 mg Oral Daily Start Date: [...] # 1 Each, 1 Refill(s), [facility] : [email or web address] [id number] Start Date: 06/11/15 Status: Ordered Robitussin DM To Go 20 mg-200 mg/10 mL oral liquid 10 mL, Oral, q4hr, as needed for cough, # 100 mL, 0 Refill(s), Pharmacy: [facility] [address] Start Date: 12/12/15 Status: Ordered traZODone Oral, [...] [Reference Range]: WBC [4.8-10.8 7.2 10*3/uL 10*3/uL] (06/17/15 8:19 PM) RBC [4.00-5.20] 4.33 (06/17/15 8:19 PM) Hgb [12.0-16.0 10.7 gm/dL gm/dL] *LOW* (06/17/15 8:19 PM) Hct [37.0-47.0 %] 34.8 % *LOW* (06/17/15 8:19 PM) MCV [82.0-99.0 fL] 80.4 fL *LOW* (06/17/15 8:19 PM) MCH [27.0-32.0 pg] 24.7 pg *LOW* (06/17/15 8:19 PM) MCHC [32.0-36.0 30.7 gm/dL gm/dL] *LOW* (06/17/15 8:19 PM) RDW [11.5-14.5 %] 17.1 % *HI* (06/17/15 8:19 PM) Platelet [150-400 252 10*3/uL 10*3/uL] (06/17/15 8:19 PM) MPV [9.4-12.4 fL] 9.7 fL (06/17/15 8:19 PM) Immature 0.1 % Granulocytes (06/17/15 8:19 PM) [0.0-1.0 %] Neutrophils [51-75 64 % %] (06/17/15 8:19 PM) Lymphocytes [20-46 27 % %] (06/17/15 8:19 PM) Monocytes [4-11 %] 6 % (06/17/15 8:19 PM) Eosinophils [0-4 %] 2 % (06/17/15 8:19 PM) Basophils [0-2 %] 0 % (06/17/15 8:19 PM) Neutro Absolute 4.61 10*3 [1.90-7.00 10*3] (06/17/15 8:19 PM) Lymph Absolute 1.94 10*3 [0.80-3.30 10*3] (06/17/15 8:19 PM) [place] Absolute 0.44 10*3 [0.30-1.00 10*3] (06/17/15 8:19 PM) Eos Absolute 0.17 10*3 [0.00-0.50 10*3] (06/17/15 8:19 PM) Baso Absolute 0.03 10*3 [0.00-0.20 10*3] (06/17/15 8:19 PM) Chemistry Most recent to 1 oldest [Reference Range]: Sodium Lvl [136-144 139 mEq/L mEq/L] (06/17/15 8:19 PM) Potassium Lvl 3.5 mEq/L [3.6-5.1 mEq/L] *LOW* (06/17/15 8:19 PM) Chloride [99-109 107 mEq/L mEq/L] (06/17/15 8: PM) CO2 [22-32 mEq/L] 26 mEq/L (06/17/15 8:19 PM) AGAP [3-20] 6 (06/17/15 8:19 PM) BUN [4-20 mg/dL] 3 mg/dL *LOW* (06/17/15:19 PM) Glucose Lvl [70-100 93 mg/dL mg/dL] (06/17/15 8:19 PM) Creatinine Lvl 0.62 mg/dL [0.44-1.03 mg/dL] (06/17/15 8:19 PM) eGFR [>60] >60 1 (06/17/15 8:19 PM) Calcium Lvl 8.9 mg/dL [8.6-10.0 mg/dL] (06/17/15 8:19 PM) Albumin Lvl [3.5-4.8 3.4 gm/dL gm/dL] *LOW* (06/17/15 8:19 PM) Total Protein 6.8 gm/dL [6.1-7.9 gm/dL] (06/17/15 8:19 PM) Globulin [1.9-4.3 3.4 gm/dL gm/dL] (06/17/15 8:19 PM) ALT [14-54 U/L] 15 U/L (06/17/15 8:19 PM) AST [15-41 U/L] 17 U/L (06/17/15 8:19 PM) Alk Phos [26-104 88 U/L U/L] (06/17/15 8:19 PM) Bili Total [0.2-1.2 0.6 mg/dL 2 mg/dL] (06/17/15 8:19 PM) Lipase Lvl [8-48 25 U/L U/L] (06/17/15 8:19 PM) Screen, Negative Urine NPT (06/17/15 8:23 PM) Occult Blood, Stool Negative NPT [Negative] (06/17/15 9:06 PM) 1Result Comment: Multiply eGFR results by 1.21 for race. 2Result Comment: Naproxen, specifically the metabolite O-desmethylnaproxen, may cause spurious elevation in Total Bilirubin levels. Urinalysis Most recent to 1 oldest [Reference Range]: UA Color Lt Yellow (06/17/15 8:19 PM) UA Appear Clear (06/17/15 8:19 PM) UA pH [5.0-8.0] 8.0 (06/17/15 8:19 PM) UA Leuk Est Negative [Negative] (06/17/15 8:19 PM) UA Nitrite Negative [Negative] (06/17/15 8:19 PM) UA Protein Negative [Negative] (06/17/15 8:19 PM) UA Glucose Negative [Negative] (06/17/15 8:19 PM) UA Ketones Negative [Negative] (06/17/15 8:19 PM) UA Urobilinogen Negative [<1.0] (06/17/15 8:19 PM) UA Bili [Negative] Negative (06/17/15 8:19 PM) UA Blood [Negative] Negative (06/17/15 8:19 PM) UA Spec Grav 1.013 [1.003-1.030] (06/17/15 8:19 PM) Type Clean Catch (06/17/15 8:19 PM) Immunizations Vaccine Date Refusal Reason pneumococcal 23-polyvalent vaccine 11/18/14 Procedures Procedure Date Related Diagnosis Body Site Esophagogastroduodenoscopy Balloon Dilat1 02/14/15 Examination Under Anesthesia2 02/14/15 Adenoidectomy Bilateral tubal ligation Bronchoscope Cardiac catheterization, combined right and left heart Tonsillectomy Tympanostomy [place] tooth 1auto-populated from documented surgical case 2auto-populated from documented surgical case Social History Social History Type Response Smoking Status Former smoker; Type: Cigarettes; Tobacco use per day: 1 Pack1 , 2 1pt quit smoking 1 month ago 2quit 05/2015 Assessment and Plan No data available for this section"
--- OUTSIDE RECORDS SUMMARY | 2017-01-20 22:08 | XMS REPORT | Referral Summary ---
Author Author [facility] Organization [facility] Address Unknown Phone Unavailable Care Team Providers Care Drawing Box Tender Name Role Phone MartinImelda Primary Care Physician [phone] Encounter Date(s): 02/12/15 - 02/12/15 [facility] [address] [address] [[email or web address]] Discharge Diagnosis: Abdominal pain Discharge Disposition: 01-Home or Self Care Attending Physician: Carly Crump APRN Admitting Physician: Carly Crump APRN Vital Signs Most recent to 1 oldest [Reference Range]: Temperature Oral 36.7 degC [35.8-37.3 degC] (02/12/15 9:43 AM) Peripheral Pulse 106 bpm Rate [60-100 bpm] *HI* (02/12/15 9:43 AM) Blood Pressure 100/70 mmHg [90-140/60-90 mmHg] (02/12/15 9:43 AM) SpO2 97 % (02/12/15 9:43 AM) Problem List Condition Effective Dates Status [...] pain, # 300 mL, 0 Refill(s), Pharmacy: [id number], 10 mL Oral q6hr,PRN:as needed for pain Start Date: 12/24/14 Status: Ordered Advair Diskus 250 mcg-50 mcg inhalation powder See Instructions, INHALE 1 PUFF BY INHALATION ROUTE 2 TIMES EVERY DAY IN THE MORNING AND EVENING APPROXIMATELY 12 HOURS APART, # 1 unknown unit, eRx: [facility] [id number], INHALE 1 PUFF BY INHALATION ROUTE 2 TIMES EVERY DAY IN THE MORNING AND EV... Start Date: 02/25/15 Status: Ordered albuterol 2.5 mg/3 mL (0.083%) inhalation solution 3 mL, Inhalation, q6hr (scheduled), # 60 Each, 1 Refill(s), Pharmacy: [facility] [id number], 3 mL Inhalation q6hr (scheduled) Start Date: 02/13/15 Status: Ordered Atrovent 42 mcg/inh nasal spray 2 sprays, Nasal, TID, # 2 Each, 5 Refill(s), Pharmacy: [facility] [id number] Start Date: 06/11/15 Stop Date: 06/11/16 Status: Ordered Chloraseptic [place] 1.4% topical spray 5 sprays, Oral, q2hr, # 10 mL, 0 Refill(s) Start Date: 08/11/15 Stop Date: 08/11/16 Status: Ordered levETIRAcetam 500 mg oral tablet See Instructions, TAKE 3 TABLETS BY MOUTH TWICE DAILY, # 180 tabs, 12 Refill(s) , eRx: [facility] [id number], TAKE 3 TABLETS BY MOUTH TWICE DAILY Start Date: 02/27/15 Status: Ordered Linzess 290 mcg oral capsule 1 caps, Oral, Daily, # 30 caps, 6 Refill(s), Pharmacy: [facility] [id number], 1 caps Oral Daily Start Date: 02/24/15 Status: Ordered loratadine 10 mg oral tablet 10 mg, Oral, Daily, # 30 tabs, 5 Refill(s), Pharmacy: [facility] [id number] , 10 mg Oral Daily Start Date: [...] # 1 Each, 1 Refill(s), Pharmacy : [facility] [address] Start Date: 06/11/15 Status: Ordered traZODone Oral, [...] combined right and left heart Tonsillectomy Tympanostomy [place] tooth 1auto-populated from documented surgical case 2auto-populated from documented surgical case Social History Social History Type Response Smoking Status Former smoker; Type: Cigarettes; Tobacco use per day: 1 Pack1 1quit 05/2015 Assessment and Plan Extracted from: Title: Office Visit Note Author: Carly Crump APRN Date: 02/12/15 Assessment/Plan Abdominal pain I explained that she may have this abdominal pain when she is stressed or having emotional issues. We may not be able to make it go away. Exercise is helpful. Dicyclomine did not work and we cannot use Donnatol due to interaction with Latuda. Will trial Compazine for nausea. Ordered: Office Visit Level 3 Est [id number] Orders: prochlorperazine, 1 tabs, Oral, TID, X 7 days, # 21 tabs, 0 Refill(s) , Pharmacy: [id number], 1 tabs Oral TID,x7 days
--- OUTSIDE RECORDS SUMMARY | 2017-01-20 22:08 | XMS REPORT | Referral Summary ---
Author Author [facility] Organization [facility] Address Unknown Phone Unavailable Care Team Providers Care Theoretical Physicist Name Role Phone [facility] Primary Care Physician Unavailable Encounter [facility] [id number] Date(s): 07/03/15 - 07/03/15 [facility] [address] [place] [address] Discharge Diagnosis: Ruptured ovarian cyst Final: OTHER AND UNSPECIFIED OVARIAN CYST Discharge Disposition: 01-Home or Self Care Attending Physician: Yasmeen Schultz MD Admitting Physician: Yasmeen Schultz MD Vital Signs Most recent to 1 oldest [Reference Range]: Temperature Oral 36.6 degC [35.8-37.3 degC] (07/03/15 6:35 AM) Peripheral Pulse 81 bpm Rate [60-100 bpm] (07/03/15 7:12 AM) Respiratory Rate 18 br/min [14-20 br/min] (07/03/15 6:35 AM) Blood Pressure 103/82 mmHg [90-140/60-90 mmHg] (07/03/15 7:12 AM) SpO2 96 % (07/03/15 7:12 AM) Problem List Condition Effective Dates Status [...] pain, # 300 mL, 0 Refill(s), Pharmacy: [facility] [id number], 10 mL Oral q6hr,PRN:as needed for pain Start Date: 12/24/14 Status: Ordered Advair Diskus 250 mcg-50 mcg inhalation powder See Instructions, INHALE 1 PUFF BY INHALATION ROUTE 2 TIMES EVERY DAY IN THE MORNING AND EVENING APPROXIMATELY 12 HOURS APART, # 1 unknown unit, eRx: [facility] [id number], INHALE 1 PUFF BY INHALATION ROUTE 2 [...] Daily, # 30 tabs, 5 Refill(s), Pharmacy: [facility] 63831, 1 tabs Oral Daily Start Date: 09/01/15 Status: Ordered codeine-guaiFENesin 10 mg-300 mg/5 mL oral liquid 5 mL, Oral, q6hr, as needed for cough, # 120 mL, 0 Refill(s) Start Date: 12/21/15 Status: Ordered Flonase 50 mcg/inh nasal spray 2 sprays, Nasal, Daily, # 1 Each, 5 Refill(s), Pharmacy: [facility] [id number] Start Date: 12/12/15 Status: Ordered ibuprofen 800 mg oral tablet 800 mg 1 tabs, Oral, TID, Pain, # 15 tabs, 0 Refill(s) Start Date: 12/07/15 Status: Ordered loratadine 10 mg oral tablet 10 mg, Oral, Daily, # 30 tabs, 5 Refill(s), Pharmacy: [facility] 58837 , 10 mg Oral Daily Start Date: 01/14/15 Status: Ordered meloxicam 15 mg oral tablet 15 mg 1 tabs, Oral, Daily, # 30 tabs, 0 Refill(s) Start Date: 12/12/15 Status: Ordered [place] 7.5 mg-325 mg oral tablet See Instructions, [...] # 1 Each, 1 Refill(s), Pharmacy : [facility] [id number] Start Date: 06/11/15 Status: Ordered Robitussin DM To Go 20 mg-200 mg/10 mL oral liquid 10 mL, Oral, q4hr, as needed for cough, # 100 mL, 0 Refill(s), Pharmacy: [facility] 74403 Start Date: 12/12/15 Status: Ordered Vitamin D3 [...] combined right and left heart Tonsillectomy Tympanostomy [place] tooth 1auto-populated from documented surgical case 2auto-populated [...]
--- OUTSIDE RECORDS SUMMARY | 2017-01-20 22:08 | XMS REPORT | Referral Summary ---
Author Author [facility] Organization [facility] Address Unknown Phone Unavailable Care Team Providers Care Seo Coordinator Name Role Phone Imelda Martin Primary Care Physician [phone] Encounter [facility] Date(s): 08/27/15 - 08/28/15 [facility] [address] [place], [place] [address] Discharge Diagnosis: Abdominal pain Discharge Diagnosis: Gastroenteritis Discharge Disposition: 01-Home or Self Care Attending Physician: Presley Frias MD Admitting Physician: Presley Frias MD Vital Signs Most recent to 1 oldest [Reference Range]: Temperature Oral 36.8 degC [35.8-37.3 degC] (08/27/15 10:01 PM) Peripheral Pulse 84 bpm Rate [60-100 bpm] (08/28/15 12:06 AM) Respiratory Rate 18 br/min [14-20 br/min] (08/28/15 12:06 AM) Blood Pressure 113/63 mmHg [90-140/60-90 mmHg] (08/28/15 12:06 AM) SpO2 99 % (08/28/15 12:06 AM) Problem List Condition Effective Dates Status [...] pain, # 300 mL, 0 Refill(s), Pharmacy: [facility] [id number], 10 mL Oral q6hr,PRN:as needed for pain Start Date: 12/24/14 Status: Ordered Advair Diskus 250 mcg-50 mcg inhalation powder See Instructions, INHALE 1 PUFF BY INHALATION ROUTE 2 TIMES EVERY DAY IN THE MORNING AND EVENING APPROXIMATELY 12 HOURS APART, # 1 unknown unit, eRx: [facility] [id number], INHALE 1 PUFF BY INHALATION ROUTE 2 TIMES EVERY DAY IN THE MORNING AND EV... Start Date: 02/25/15 Status: Ordered albuterol 2.5 mg/3 mL (0.083%) inhalation solution 3 mL, Inhalation, q6hr (scheduled), # 60 Each, 1 Refill(s), Pharmacy: [facility] [id number], 3 mL Inhalation q6hr (scheduled) Start Date: 02/13/15 Status: Ordered Atrovent 42 mcg/inh nasal spray 2 sprays, Nasal, TID, # 2 Each, 5 Refill(s), Pharmacy: [facility] [id number] Start Date: 06/11/15 Stop Date: 06/11/16 Status: Ordered Chloraseptic [place] 1.4% topical spray 5 sprays, Oral, q2hr, # 10 mL, 0 Refill(s) Start Date: 08/11/15 Stop Date: 08/11/16 Status: Ordered levETIRAcetam 500 mg oral tablet See Instructions, TAKE 3 TABLETS BY MOUTH TWICE DAILY, # 180 tabs, 12 Refill(s) , eRx: [facility] [id number], TAKE 3 TABLETS BY MOUTH TWICE DAILY Start Date: 02/27/15 Status: Ordered Levsin 0.125 mg oral tablet 0.125 mg 1 tabs, Oral, QID, # 15 tabs, 0 Refill(s) Start Date: 08/27/15 Status: Ordered Linzess 290 mcg oral capsule 1 caps, Oral, Daily, # 30 caps, 6 Refill(s), Pharmacy: [facility] [address], 1 caps Oral Daily Start Date: 02/24/15 Status: Ordered loratadine 10 mg oral tablet 10 mg, Oral, Daily, # 30 tabs, 5 Refill(s), Pharmacy: [facility] [id number] , 10 mg Oral Daily Start Date: [...] Pharmacy : [facility] [id number] Start Date: 06/11/15 Status: Ordered traZODone Oral, [...] [Reference Range]: WBC [4.8-10.8 6.8 10*3/uL 10*3/uL] (08/27/15 10:56 PM) RBC [4.00-5.20] 3.97 *LOW* (08/27/15 10:56 PM) Hgb [12.0-16.0 9.2 gm/dL gm/dL] *LOW* (08/27/15 10:56 PM) Hct [37.0-47.0 %] 31.4 % *LOW* (08/27/15 10:56 PM) MCV [82.0-99.0 fL] 79.1 fL *LOW* (08/27/15 10:56 PM) MCH [27.0-32.0 pg] 23.2 pg *LOW* (08/27/15 10:56 PM) MCHC [32.0-36.0 29.3 gm/dL gm/dL] *LOW* (08/27/15 10:56 PM) RDW [11.5-14.5 %] 19.1 % *HI* (08/27/15 10:56 PM) Platelet [150-400 260 10*3/uL 10*3/uL] (08/27/15 10:56 PM) MPV [9.4-12.4 fL] 9.6 fL (08/27/15 10:56 PM) Immature 0.1 % Granulocytes (08/27/15 10:56 PM) [0.0-1.0 %] Neutrophils [51-75 64 % %] (08/27/15 10:56 PM) Lymphocytes [20-46 27 % %] (08/27/15 10:56 PM) Monocytes [4-11 %] 6 % (08/27/15 10:56 PM) Eosinophils [0-4 %] 3 % (08/27/15 10:56 PM) Basophils [0-2 %] 0 % (08/27/15 10:56 PM) Neutro Absolute 4.34 10*3 [1.90-7.00 10*3] (08/27/15 10:56 PM) Lymph Absolute 1.79 10*3 [0.80-3.30 10*3] (08/27/15 10:56 PM) [place] Absolute 0.38 10*3 [0.30-1.00 10*3] (08/27/15 10:56 PM) Eos Absolute 0.21 10*3 [0.00-0.50 10*3] (08/27/15 10:56 PM) Baso Absolute 0.02 10*3 [0.00-0.20 10*3] (08/27/15 10:56 PM) Chemistry Most recent to 1 oldest [Reference Range]: Sodium Lvl [136-144 138 mEq/L mEq/L] (08/27/15 10:56 PM) Potassium Lvl 3.8 mEq/L [3.6-5.1 mEq/L] (08/27/15 10:56 PM) Chloride [99-109 106 mEq/L mEq/L] (08/27/15 10:56 PM) CO2 [22-32 mEq/L] 26 mEq/L (08/27/15 10:56 PM) AGAP [3-20] 6 (08/27/15 10:56 PM) BUN [4-20 mg/dL] 7 mg/dL (08/27/15 10:56 PM) Glucose Lvl [70-100 86 mg/dL mg/dL] (08/27/15 10:56 PM) Creatinine Lvl 0.61 mg/dL [0.44-1.03 mg/dL] (08/27/15 10:56 PM) eGFR [>60] >60 1 (08/27/15 10:56 PM) Calcium Lvl 8.6 mg/dL [8.6-10.0 mg/dL] (08/27/15 10:56 PM) Albumin Lvl [3.5-4.8 3.0 gm/dL gm/dL] *LOW* (08/27/15 10:56 PM) Total Protein 6.5 gm/dL [6.1-7.9 gm/dL] (08/27/15 10:56 PM) Globulin [1.9-4.3 3.5 gm/dL gm/dL] (08/27/15 10:56 PM) ALT [14-54 U/L] 14 U/L (08/27/15 10:56 PM) AST [15-41 U/L] 17 U/L (08/27/15 10:56 PM) Alk Phos [26-104 68 U/L U/L] (08/27/15 10:56 PM) Bili Total [0.2-1.2 0.4 mg/dL 2 mg/dL] (08/27/15 10:56 PM) Lipase Lvl [8-48 18 U/L U/L] (08/27/15 10:56 PM) Screen, Negative Urine NPT (08/27/15 10:59 PM) 1Result Comment: Multiply eGFR results by 1.21 for race. 2Result Comment: Naproxen, specifically the metabolite O-desmethylnaproxen, may cause spurious elevation in Total Bilirubin levels. Urinalysis Most recent to 1 oldest [Reference Range]: UA Color Yellow (08/27/15 10:56 PM) UA Appear Sl Cloudy (08/27/15 10:56 PM) UA pH [5.0-8.0] 8.0 (08/27/15 10:56 PM) UA Leuk Est Pos 1+ [Negative] *ABN* (08/27/15 10:56 PM) UA Nitrite Negative [Negative] (08/27/15 10:56 PM) UA Protein Negative [Negative] (08/27/15 10:56 PM) UA Glucose Negative [Negative] (08/27/15 10:56 PM) UA Ketones Negative [Negative] (08/27/15 10:56 PM) UA Urobilinogen Negative [<1.0] (08/27/15 10:56 PM) UA Bili [Negative] Negative (08/27/15 10:56 PM) UA Blood [Negative] Trace *ABN* (08/27/15 10:56 PM) UA Spec Grav 1.019 [1.003-1.030] (08/27/15 10:56 PM) Type Clean Catch (08/27/15 10:56 PM) UA WBC [0-4] 5-10 *ABN* (08/27/15 10:56 PM) UA RBC [0-2] 0-2 (08/27/15 10:56 PM) Epithelial Cells 5-10 (08/27/15 10:56 PM) UA Bacteria Occasional *ABN* (08/27/15 10:56 PM) Crystals Amorphous (08/27/15 10:56 PM) UA Mucous Present (08/27/15 10:56 PM) Immunizations Vaccine Date Refusal Reason pneumococcal 23-polyvalent vaccine 11/18/14 Procedures Procedure Date Related Diagnosis Body Site Esophagogastroduodenoscopy Balloon Dilat1 02/14/15 Examination Under Anesthesia2 02/14/15 Adenoidectomy Bilateral tubal ligation Bronchoscope Cardiac catheterization, combined right and left heart Tonsillectomy Tympanostomy [place] tooth 1auto-populated from documented surgical case 2auto-populated from documented surgical case Social History Social History Type Response Smoking Status Former smoker; Type: Cigarettes; Tobacco use per day: 1 Pack1 1quit 05/2015 Assessment and Plan No data available for this section
--- OUTSIDE RECORDS SUMMARY | 2017-01-20 22:08 | XMS REPORT | Referral Summary ---
Author Author [facility] Organization [facility] Address Unknown Phone Unavailable Care Team Providers Care Cad Designer Name Role Phone [facility] Primary Care Physician Unavailable Encounter [facility] [id number] Date(s): 06/11/15 - 06/11/15 [facility] [address] [place], [place] [address] Discharge Diagnosis: Asthma Discharge Disposition: 01-Home or Self Care Attending Physician: Vandana French MD Admitting Physician: Vandana French MD Referring Physician: Vandana French MD Vital Signs No [...] pain, # 300 mL, 0 Refill(s), Pharmacy: [facility] [id number], 10 mL Oral q6hr,PRN:as needed for pain Start Date: 12/24/14 Status: Ordered Advair Diskus 250 mcg-50 mcg inhalation powder See Instructions, INHALE 1 PUFF BY INHALATION ROUTE 2 TIMES EVERY DAY IN THE MORNING AND EVENING APPROXIMATELY 12 HOURS APART, # 1 unknown unit, eRx: [facility] [id number], INHALE 1 PUFF BY INHALATION ROUTE 2 TIMES EVERY DAY IN THE MORNING AND EV... Start Date: 02/25/15 Status: Ordered Carafate 1 g oral tablet 1 g 1 tabs, Oral, QID, Dissolve in water and drink, # 40 tabs, 0 Refill(s) Start Date: 08/31/15 Status: Ordered cetirizine 10 mg oral tablet 10 mg 1 tabs, Oral, Daily, # 30 tabs, 5 Refill(s), Pharmacy: [facility] [address], 1 tabs Oral Daily Start Date: 09/01/15 Status: Ordered codeine-guaiFENesin 10 mg-300 mg/5 mL oral liquid 5 mL, Oral, q6hr, as needed for cough, # 120 mL, 0 Refill(s) Start Date: 12/21/15 Status: Ordered Flonase 50 mcg/inh nasal spray 2 sprays, Nasal, Daily, # 1 Each, 5 Refill(s), Pharmacy: [facility] [address] Start Date: 12/12/15 Status: Ordered ibuprofen 800 mg oral tablet 800 mg 1 tabs, Oral, TID, Pain, # 15 tabs, 0 Refill(s) Start Date: 12/07/15 Status: Ordered loratadine 10 mg oral tablet 10 mg, Oral, Daily, # 30 tabs, 5 Refill(s), Pharmacy: [facility] [id number] , 10 mg Oral Daily Start Date: [...] # 1 Each, 1 Refill(s), Pharmacy : [facility] [address] Start Date: 06/11/15 Status: Ordered Robitussin DM To Go 20 mg-200 mg/10 mL oral liquid 10 mL, Oral, q4hr, as needed for cough, # 100 mL, 0 Refill(s), Pharmacy: [facility] [address]59[address] Start Date: 12/12/15 Status: Ordered traZODone Oral, [...] combined right and left heart Tonsillectomy Tympanostomy [place] tooth 1auto-populated from documented surgical case 2auto-populated from documented surgical case Social History Social History Type Response Smoking Status Former smoker; Type: Cigarettes; Tobacco use per day: 1 Pack1 , 2 1pt quit smoking 1 month ago 2quit 05/2015 Assessment and Plan No data available for this section
--- OUTSIDE RECORDS SUMMARY | 2017-01-20 22:08 | XMS REPORT | Referral Summary ---
Author Author [facility] Organization [facility] Address Unknown Phone Unavailable Care Team Providers Care Precision Honing Machine Operator Name Role Phone [facility] Primary Care Physician Unavailable Encounter [facility] [id number] Date(s): 08/11/15 - 08/11/15 [facility] [address] [place], [place] [address] Discharge Diagnosis: Acute UTI Final: Urinary tract infection, site not specified Final: Acute pharyngitis, unspecified Final: Unspecified asthma, uncomplicated Final: Nicotine dependence, cigarettes, uncomplicated Discharge Diagnosis: Sore throat Discharge Disposition: 01-Home [...] HOURS APART, # 1 unknown unit, eRx: [facility] [id number], INHALE 1 PUFF BY INHALATION ROUTE 2 [...] Daily, # 30 tabs, 5 Refill(s), Pharmacy: [id number], 1 tabs Oral Daily Start Date: 09/01/15 [...] prn, # 5 mL, 5 Refill(s), Pharmacy: [facility] Start Date: 02/02/16 Status: Ordered Pepcid 20 mg oral tablet 20 mg 1 tabs, Oral, BID, # 60 tabs, 0 Refill(s) Start Date: 09/14/15 Status: Ordered ProAir HFA 90 mcg/inh inhalation aerosol See Instructions, 2-4 puffs every 4-6 hrs prn., # 1 Each, 1 Refill(s), Pharmacy : [facility] [address] Start Date: 06/11/15 Status: Ordered Singulair qPM, 0 Refill(s) Start Date: 01/23/16 Status: Ordered Vitamin D3 1,000 Intl_Units, Oral, Daily, 0 Refill(s) Start Date: 10/26/14 Status: Ordered Results Urinalysis Most recent to [...] combined right and left heart Tonsillectomy Tympanostomy [place] tooth 1auto-populated from documented surgical case 2auto-populated [...]
--- OUTSIDE RECORDS SUMMARY | 2017-01-20 22:08 | XMS REPORT | Referral Summary ---
Author Author [facility] Organization [facility] Address Unknown Phone Unavailable Care Team Providers Care Bar Back Name Role Phone Imelda Martin Primary Care Physician [phone] Encounter [facility] Date(s): 10/14/16 - 10/14/16 [facility] [address] [place] [address] Discharge Diagnosis: Chest pain Discharge Disposition: 01-Home or Self Care Attending Physician: Presley Frias MD Admitting Physician: Presley Frias MD Referring Physician: Self Referred, X Vital Signs Most recent to 1 oldest [Reference Range]: Temperature Oral 36.9 degC [35.8-37.3 degC] (10/14/16 9:37 PM) Peripheral Pulse 85 bpm Rate [60-100 bpm] (10/14/16 11:05 PM) Respiratory Rate 18 br/min [14-20 br/min] (10/14/16 11:05 PM) Blood Pressure 135/89 mmHg [90-140/60-90 mmHg] (10/14/16 11:05 PM) SpO2 100 % (10/14/16 11:05 PM) Problem List Condition Effective Dates Status [...] QIDACHS, # 280 mL, 0 Refill(s), Pharmacy: [facility], 10 mL Oral QIDACHS Start Date: 02/15/16 Status: Ordered Claritin 10 mg, Oral, Daily, 0 Refill(s) Start Date: 01/23/16 Status: Ordered ibuprofen 600 mg oral tablet 600 mg 1 tabs, Oral, q6hr, # 40 tabs, 0 Refill(s) Start Date: 10/01/16 Status: Ordered Keppra 500 mg oral tablet 500 mg 1 tabs, Oral, BID, # 60 tabs, 0 Refill(s), Pharmacy: [facility] [address], 1 tabs Oral BID Start Date: 07/12/16 Status: Ordered Keppra 500 mg oral tablet 500 mg 1 tabs, Oral, BID, # 60 tabs, 0 Refill(s) Start Date: 04/21/16 Stop Date: 05/21/16 Status: Ordered Macrobid 100 mg oral capsule 100 mg 1 caps, Oral, BID, X 7 days, # 14 caps, 0 Refill(s) Start Date: 10/12/16 Stop Date: 10/19/16 Status: Ordered Naprosyn 250 mg oral tablet 250 mg 1 tabs, Oral, BID, X 7 days, # 14 tabs, 0 Refill(s) Start Date: 10/08/16 Stop Date: 10/15/16 Status: Ordered paliperidone 3 mg oral tablet, [...] to 1 oldest [Reference Range]: Troponin-POC Negative (10/14/16 10:34 PM) Urinalysis Most recent to 1 oldest [Reference Range]: Type Venous (10/14/16 10:35 PM) Immunizations Given and Recorded Vaccine Date Status Refusal Reason pneumococcal 23-polyvalent vaccine 11/18/14 Given Procedures Procedure Date Related Diagnosis Body Site Esophagogastroduodenoscopy - SN1 06/04/16 Esophagogastroduodenoscopy Foreign Body 01/06/16 Removal2 Procedure with Anesthesia3 01/06/16 Esophagogastroduodenoscopy Balloon Dilat4 02/14/15 Examination Under Anesthesia5 02/14/15 Adenoidectomy Bilateral tubal ligation Bronchoscope Cardiac catheterization, combined right and left heart Tonsillectomy Tympanostomy [place] tooth 1auto-populated from documented surgical case 2auto-populated from documented surgical case 3auto-populated from documented surgical case 4auto-populated from documented surgical case 5auto-populated from documented surgical case Social History Social History Type Response Smoking Status Never smoker Assessment and Plan No data available for this section
--- OUTSIDE RECORDS SUMMARY | 2017-01-20 22:08 | XMS REPORT | Referral Summary ---
Author Author [facility] Organization [facility] Address Unknown Phone Unavailable Care Team Providers Care Host Coordinator Name Role Phone [facility] Primary Care Physician Unavailable Encounter [facility] [id number] Date(s): 01/19/16 - 01/20/16 [facility] [address] [place] [address] Discharge Diagnosis: Chronic low back pain Discharge Disposition: 01-Home or Self Care Attending Physician: Maia Strong MD Admitting Physician: Maia Strong MD Vital Signs Most recent to 1 oldest [Reference Range]: Temperature Oral 36.9 degC [35.8-37.3 degC] (01/20/16 12:00 AM) Peripheral Pulse 81 bpm Rate [60-100 bpm] (01/20/16 1:03 AM) Respiratory Rate 22 br/min [14-20 br/min] *HI* (01/20/16 1:03 AM) Blood Pressure 117/64 mmHg [90-140/60-90 mmHg] (01/20/16 1:03 AM) SpO2 98 % (01/20/16 1:03 AM) Problem List Condition Effective Dates Status [...] pain, # 300 mL, 0 Refill(s), Pharmacy: [facility] [id number], 10 mL Oral q6hr,PRN:as needed for pain Start Date: 12/24/14 Status: Ordered Advair Diskus 250 mcg-50 mcg inhalation powder See Instructions, INHALE 1 PUFF BY INHALATION ROUTE 2 TIMES EVERY DAY IN THE MORNING AND EVENING APPROXIMATELY 12 HOURS APART, # 1 unknown unit, eRx: [facility] [id number], INHALE 1 PUFF BY INHALATION ROUTE 2 [...] Daily, # 30 tabs, 5 Refill(s), Pharmacy: [facility] [id number], 1 tabs Oral Daily Start Date: 09/01/15 [...] Daily, # 1 Each, 5 Refill(s), Pharmacy: [facility] [id number] Start Date: 12/12/15 Status: Ordered ibuprofen 800 mg oral tablet 800 mg 1 tabs, Oral, TID, Pain, # 15 tabs, 0 Refill(s) Start Date: 12/07/15 Status: Ordered loratadine 10 mg oral tablet 10 mg, Oral, Daily, # 30 tabs, 5 Refill(s), Pharmacy: [facility] 65651 , 10 mg Oral Daily Start Date: 01/14/15 Status: Ordered meloxicam 15 mg oral tablet 15 mg 1 tabs, Oral, Daily, # 30 tabs, 0 Refill(s) Start Date: 12/12/15 Status: Ordered Mobic 7.5 mg oral tablet 7.5 mg 1 tabs, Oral, Daily, # 7 tabs, 0 Refill(s), Pharmacy: [facility], 1 tabs Oral Daily,x7 days [...] # 1 Each, 1 Refill(s), Pharmacy : [facility] [address] Start Date: 06/11/15 Status: Ordered Robitussin DM To Go 20 mg-200 mg/10 mL oral liquid 10 mL, Oral, q4hr, as needed for cough, # 100 mL, 0 Refill(s), Pharmacy: [facility] [address] Start Date: 12/12/15 Status: Ordered Vitamin D3 [...] combined right and left heart Tonsillectomy Tympanostomy [place] tooth 1auto-populated from documented surgical case [...]
--- OUTSIDE RECORDS SUMMARY | 2017-01-20 22:09 | XMS REPORT | Referral Summary ---
Author Author [facility] Organization [facility] Address Unknown Phone Unavailable Care Team Providers Care Senior Mobile Web Developer Name Role Phone Imelda Martin Primary Care Physician [phone] Encounter Date(s): 04/13/15 - 04/13/15 [facility] [address] [place] [address] Final: EDEMA Final: ABDOMINAL PAIN, UNSPECIFIED SITE Final: TOBACCO USE DISORDER Discharge Diagnosis: Leg edema Discharge Diagnosis: Pain, abdominal Discharge Disposition: 01-Home or Self Care Attending Physician: Moses Kay JR, MD Admitting Physician: Moses Kay JR, MD Vital Signs Most recent to 1 oldest [Reference Range]: Temperature Oral 36.7 degC [35.8-37.3 degC] (04/13/15 6:25 PM) Apical Heart Rate 73 bpm [60-100 bpm] (04/13/15 8:26 PM) Respiratory Rate 18 br/min [14-20 br/min] (04/13/15 8:26 PM) Blood Pressure 103/81 mmHg [90-140/60-90 mmHg] (04/13/15 8:26 PM) SpO2 98 % (04/13/15 6:25 PM) Problem List Condition Effective Dates Status [...] pain, # 300 mL, 0 Refill(s), Pharmacy: [facility] [id number], 10 mL Oral q6hr,PRN:as needed for pain Start Date: 12/24/14 Status: Ordered Advair Diskus 250 mcg-50 mcg inhalation powder See Instructions, INHALE 1 PUFF BY INHALATION ROUTE 2 TIMES EVERY DAY IN THE MORNING AND EVENING APPROXIMATELY 12 HOURS APART, # 1 unknown unit, eRx: [facility] [id number], INHALE 1 PUFF BY INHALATION ROUTE 2 TIMES EVERY DAY IN THE MORNING AND EV... Start Date: 02/25/15 Status: Ordered Atrovent 42 mcg/inh nasal spray 2 sprays, Nasal, TID, # 2 Each, 5 Refill(s), Pharmacy: [facility] [id number] Start Date: 06/11/15 Stop Date: 06/11/16 Status: Ordered Carafate 1 g oral tablet 1 g 1 tabs, Oral, QID, Dissolve in water and drink, # 40 tabs, 0 Refill(s) Start Date: 08/31/15 Status: Ordered cetirizine 10 mg oral tablet 10 mg 1 tabs, Oral, Daily, # 30 tabs, 5 Refill(s), Pharmacy: [facility] [id number], 1 tabs Oral Daily Start Date: 09/01/15 Status: Ordered Linzess 290 mcg oral capsule 1 caps, Oral, Daily, # 30 caps, 6 Refill(s), Pharmacy: [facility] [id number], 1 caps Oral Daily Start Date: 02/24/15 Status: Ordered loratadine 10 mg oral tablet 10 mg, Oral, Daily, # 30 tabs, 5 Refill(s), Pharmacy: [facility] [id number] , 10 mg Oral Daily Start Date: [...] # 1 Each, 1 Refill(s), Pharmacy : [facility] [id number] Start Date: 06/11/15 Status: Ordered traZODone Oral, 0 Refill(s) Start Date: 04/05/15 Status: Ordered Viibryd Oral, Daily, 0 Refill(s) Start Date: 04/05/15 Status: Ordered Vitamin D3 1,000 Intl_Units, Oral, Daily, 0 Refill(s) Start Date: 10/26/14 Status: Ordered Results Hematology Most recent to 1 oldest [Reference Range]: WBC [4.8-10.8 5.7 10*3/uL 10*3/uL] (04/13/15 7:44 PM) RBC [4.00-5.20 3.76 10*6/uL 10*6/uL] *LOW* (04/13/15 7:44 PM) Hgb [12.0-16.0 10.0 gm/dL gm/dL] *LOW* (04/13/15 7:44 PM) Hct [37.0-47.0 %] 32.6 % *LOW* (04/13/15 7:44 PM) MCV [82.0-99.0 fL] 86.7 fL (04/13/15 7:44 PM) MCH [27.0-32.0 pg] 26.6 pg *LOW* (04/13/15 7:44 PM) MCHC [32.0-36.0 30.7 gm/dL gm/dL] *LOW* (04/13/15 7:44 PM) RDW [11.5-14.5 %] 16.8 % *HI* (04/13/15 7:44 PM) Platelet [150-400 244 10*3/uL 10*3/uL] (04/13/15 7:44 PM) MPV [9.4-12.4 fL] 9.3 fL *LOW* (04/13/15 7:44 PM) Immature 0.2 % Granulocytes (04/13/15:44 PM) [0.0-1.0 %] Neutrophils [51-75 55 % %] (04/13/15 7:44 PM) Lymphocytes [20-46 34 % %] (04/13/15 7:44 PM) Monocytes [4-11 %] 8 % (04/13/15:44 PM) Eosinophils [0-4 %] 2 % (04/13/15 7:44 PM) Basophils [0-2 %] 0 % (04/13/15 7:44 PM) Neutro Absolute 3.14 10*3 [1.90-7.00 10*3] (04/13/15 7:44 PM) Lymph Absolute 1.92 10*3 [0.80-3.30 10*3] (04/13/15 7:44 PM) Cobb Absolute 0.48 10*3 [0.30-1.00 10*3] (04/13/15 7:44 PM) Eos Absolute 0.13 10*3 [0.00-0.50 10*3] (04/13/15 7:44 PM) Baso Absolute 0.02 10*3 [0.00-0.20 10*3] (04/13/15 7:44 PM) Chemistry Most recent to 1 oldest [Reference Range]: Sodium Lvl [136-144 139 mEq/L mEq/L] (04/13/15 7:44 PM) Potassium Lvl 4.0 mEq/L [3.6-5.1 mEq/L] (04/13/15 7:44 PM) Chloride [99-109 106 mEq/L mEq/L] (04/13/15 7:44 PM) CO2 [22-32 mEq/L] 26 mEq/L (04/13/15 7:44 PM) AGAP [3-20] 7 (04/13/15 7:44 PM) BUN [4-20 mg/dL] 11 mg/dL (04/13/15 7:44 PM) Glucose Lvl [70-100 94 mg/dL mg/dL] (04/13/15 7:44 PM) Creatinine Lvl 0.52 mg/dL [0.44-1.03 mg/dL] (04/13/15 7:44 PM) eGFR [>60] >60 1 (04/13/15 7:44 PM) Calcium Lvl 8.8 mg/dL [8.6-10.0 mg/dL] (04/13/15 7:44 PM) Albumin Lvl [3.5-4.8 2.9 gm/dL gm/dL] *LOW* (04/13/15 7:44 PM) Total Protein 6.5 gm/dL [6.1-7.9 gm/dL] (04/13/15 7:44 PM) Globulin [1.9-4.3 3.6 gm/dL gm/dL] (04/13/15 7:44 PM) ALT [14-54 U/L] 13 U/L *LOW* (04/13/15 7:44 PM) AST [15-41 U/L] 12 U/L *LOW* (04/13/15 7:44 PM) Alk Phos [26-104 79 U/L U/L] (04/13/15 7:44 PM) Bili Total [0.2-1.2 0.5 mg/dL 2 mg/dL] (04/13/15 7:44 PM) Lipase Lvl [8-48 24 U/L U/L] (04/13/15 7:44 PM) Screen, Negative Urine NPT (04/13/15 7:01 PM) 1Result Comment: Multiply eGFR results by 1.21 for race. 2Result Comment: Naproxen, specifically the metabolite O-desmethylnaproxen, may cause spurious elevation in Total Bilirubin levels. Urinalysis Most recent to 1 oldest [Reference Range]: UA Color Yellow (04/13/15 7:44 PM) UA Appear Clear (04/13/15 7:44 PM) UA pH [5.0-8.0] 8.0 (04/13/15 7:44 PM) UA Leuk Est Negative [Negative] (04/13/15 7:44 PM) UA Nitrite Negative [Negative] (04/13/15 7:44 PM) UA Protein Negative [Negative] (04/13/15 7:44 PM) UA Glucose Negative [Negative] (04/13/15 7:44 PM) UA Ketones Negative [Negative] (04/13/15 7:44 PM) UA Urobilinogen Negative [<1.0] (04/13/15 7:44 PM) UA Bili [Negative] Negative (04/13/15 7:44 PM) UA Blood [Negative] Negative (04/13/15 7:44 PM) UA Spec Grav 1.019 [1.003-1.030] (04/13/15 7:44 PM) Type Clean Catch (04/13/15 7:44 PM) Immunizations Vaccine Date Refusal Reason pneumococcal 23-polyvalent vaccine 11/18/14 Procedures Procedure Date Related Diagnosis Body Site Esophagogastroduodenoscopy Balloon Dilat1 02/14/15 Examination Under Anesthesia2 02/14/15 Adenoidectomy Bilateral tubal ligation Bronchoscope Cardiac catheterization, combined right and left heart Tonsillectomy Tympanostomy [place] tooth 1auto-populated from documented surgical case 2auto-populated from documented surgical case Social History Social History Type Response Smoking Status Former smoker; Type: Cigarettes; Tobacco use per day: 1 Pack1 1quit 05/2015 Assessment and Plan No data available for this section
--- OUTSIDE RECORDS SUMMARY | 2017-01-20 22:09 | XMS REPORT | Referral Summary ---
Author Author [facility] Organization [facility] Address Unknown Phone Unavailable Care Team Providers Care Hide Tanner Name Role Phone [facility] Primary Care Physician Unavailable Encounter TERRE[facility] [id number] Date(s): 03/04/16 - 03/04/16 [facility] [address] [place], [place] [address] Discharge Diagnosis: Ovarian cyst, left Discharge Disposition: 01-Home or Self Care Attending Physician: Yue Maldonado MD Admitting Physician: Yue Maldonado MD Vital Signs Most recent to 1 oldest [Reference Range]: Temperature Oral 36.3 degC [35.8-37.3 degC] (03/04/16 5:12 PM) Peripheral Pulse 78 bpm Rate [60-100 bpm] (03/04/16 5:12 PM) Heart Rate Monitored 103 bpm [60-100 bpm] *HI* (03/04/16 3:56 PM) Respiratory Rate 12 br/min [14-20 br/min] *LOW* (03/04/16 5:12 PM) Blood Pressure 91/67 mmHg [90-140/60-90 mmHg] (03/04/16 5:12 PM) Mean Arterial 94 mmHg Pressure, Cuff (03/04/16 3:56 PM) SpO2 98 % (03/04/16 5:12 PM) Problem List Condition Effective Dates Status [...] HOURS APART, # 1 unknown unit, eRx: [facility] [id number], INHALE 1 PUFF BY INHALATION ROUTE 2 TIMES EVERY DAY IN THE MORNING AND EV... Start Date: 02/25/15 Status: Ordered Carafate 1 g/10 mL oral suspension 10 mL, Oral, QIDACHS, # 280 mL, 0 Refill(s), Pharmacy: [facility], 10 mL Oral QIDACHS Start Date: 02/15/16 Status: Ordered cetirizine 10 mg oral tablet 10 mg 1 tabs, Oral, Daily, # 30 tabs, 5 Refill(s), Pharmacy: [facility] [id number], 1 tabs Oral Daily Start Date: 09/01/15 [...] # 1 Each, 1 Refill(s), [id number] Start Date: 06/11/15 Status: Ordered Singulair qPM, 0 Refill(s) Start Date: 01/23/16 Status: Ordered Vitamin D3 1,000 Intl_Units, Oral, Daily, 0 Refill(s) Start Date: 10/26/14 Status: Ordered Results Hematology Most recent to 1 oldest [Reference Range]: WBC [4.8-10.8 4.0 10*3/uL 10*3/uL] *LOW* (03/04/16 2:51 PM) RBC [4.00-5.20] 4.86 (03/04/16 2:51 PM) Hgb [12.0-16.0 11.8 gm/dL gm/dL] *LOW* (03/04/16 2:51 PM) Hct [37.0-47.0 %] 39.0 % (03/04/16 2:51 PM) MCV [82.0-99.0 fL] 80.2 fL *LOW* (03/04/16 2:51 PM) MCH [27.0-32.0 pg] 24.3 pg *LOW* (03/04/16 2:51 PM) MCHC [32.0-36.0 30.3 gm/dL gm/dL] *LOW* (03/04/16 2:51 PM) RDW [11.5-14.5 %] 18.5 % *HI* (03/04/16 2:51 PM) Platelet [150-400 195 10*3/uL 10*3/uL] (03/04/16 2:51 PM) MPV [9.4-12.4 fL] 9.7 fL (03/04/16 2:51 PM) Immature 1.0 % Granulocytes (03/04/16 2:51 PM) [0.0-1.0 %] Neutrophils [51-75 60 % %] (03/04/16 2:51 PM) Lymphocytes [20-46 25 % %] (03/04/16 2:51 PM) Monocytes [4-11 %] 13 % *HI* (03/04/16 2:51 PM) Eosinophils [0-4 %] 1 % (03/04/16 2:51 PM) Basophils [0-2 %] 0 % (03/04/16 2:51 PM) Neutro Absolute 2.42 10*3 [1.90-7.00 10*3] (03/04/16 2:51 PM) Lymph Absolute 1.01 10*3 [0.80-3.30 10*3] (03/04/16 2:51 PM) [place] Absolute 0.52 10*3 [0.30-1.00 10*3] (03/04/16 2:51 PM) Eos Absolute 0.05 10*3 [0.00-0.50 10*3] (03/04/16 2:51 PM) Baso Absolute 0.01 10*3 [0.00-0.20 10*3] (03/04/16 2:51 PM) Chemistry Most recent to 1 oldest [Reference Range]: U Beta hCG Ql Neg (03/04/16 2:01 PM) Microbiology Reports TEST: Affirm Vaginitis Panel STATUS: Auth (Verified) BODY SITE: SOURCE: Cervix/Vaginal COLLECTED DATE/TIME: 03/04/16 2:53 PM Affirm Vaginitis Panel Negative for Trichomonas vaginalis Negative for Gardnerella vaginalis Negative for Velma species Immunizations Vaccine Date Refusal Reason pneumococcal 23-polyvalent vaccine 11/18/14 Procedures Procedure Date Related Diagnosis Body Site Esophagogastroduodenoscopy Foreign Body 01/06/16 Removal1 Procedure with Anesthesia2 01/06/16 Esophagogastroduodenoscopy Balloon Dilat3 02/14/15 Examination Under Anesthesia4 02/14/15 Adenoidectomy Bilateral tubal ligation Bronchoscope Cardiac catheterization, combined right and left heart Tonsillectomy Tympanostomy [place] tooth 1auto-populated from documented surgical case 2auto-populated [...]
--- OUTSIDE RECORDS SUMMARY | 2017-01-20 22:09 | XMS REPORT | Referral Summary ---
Author Author [facility] Organization [facility] Address Unknown Phone Unavailable Care Team Providers Care Adult Secondary Education Instructor Name Role Phone [facility] Primary Care Physician Unavailable Encounter TERRELL [id number] Date(s): 12/21/15 - 12/21/[address] [facility] [address] [place] [address] Discharge Diagnosis: Acute upper respiratory infection Discharge Diagnosis: Acute bronchitis Discharge Disposition: 01-Home or Self Care Attending Physician: Vance Lei MD Admitting Physician: Vance Lei MD Vital Signs Most recent to 1 oldest [Reference Range]: Temperature Oral 36.8 degC [35.8-37.3 degC] (12/21/15 3:33 PM) Peripheral Pulse 77 bpm Rate [60-100 bpm] (12/21/15 5:31 PM) Respiratory Rate 20 br/min [14-20 br/min] (12/21/15 5:31 PM) Blood Pressure 107/79 mmHg [90-140/60-90 mmHg] (12/21/15 5:31 PM) SpO2 99 % (12/21/15 5:31 PM) Problem List Condition Effective Dates Status [...] pain, # 300 mL, 0 Refill(s), Pharmacy: [facility] [id number], 10 mL Oral q6hr,PRN:as needed for pain Start Date: 12/24/14 Status: Ordered Advair Diskus 250 mcg-50 mcg inhalation powder See Instructions, INHALE 1 PUFF BY INHALATION ROUTE 2 TIMES EVERY DAY IN THE MORNING AND EVENING APPROXIMATELY 12 HOURS APART, # 1 unknown unit, eRx: [facility] [id number], INHALE 1 PUFF BY INHALATION ROUTE 2 TIMES EVERY DAY IN THE MORNING AND EV... Start Date: 02/25/15 Status: Ordered Carafate 1 g oral tablet 1 g 1 tabs, Oral, QID, Dissolve in water and drink, # 40 tabs, 0 Refill(s) Start Date: 08/31/15 Status: Ordered cetirizine 10 mg oral tablet 10 mg 1 tabs, Oral, Daily, # 30 tabs, 5 Refill(s), Pharmacy: [facility] [address]38, 1 tabs Oral Daily Start Date: 09/01/15 Status: Ordered codeine-guaiFENesin 10 mg-300 mg/5 mL oral liquid 5 mL, Oral, q6hr, as needed for cough, # 120 mL, 0 Refill(s) Start Date: 12/21/15 Status: Ordered Flonase 50 mcg/inh nasal spray 2 sprays, Nasal, Daily, # 1 Each, 5 Refill(s), Pharmacy: [facility] [address] Start Date: 12/12/15 Status: Ordered ibuprofen 800 mg oral tablet 800 mg 1 tabs, Oral, TID, Pain, # 15 tabs, 0 Refill(s) Start Date: 12/07/15 Status: Ordered loratadine 10 mg oral tablet 10 mg, Oral, Daily, # 30 tabs, 5 Refill(s), Pharmacy: [facility] 50315 , 10 mg Oral Daily Start Date: [...] # 1 Each, 1 Refill(s), Pharmacy : [facility] [address]92 Start Date: 06/11/15 Status: Ordered Robitussin DM To Go 20 mg-200 mg/10 mL oral liquid 10 mL, Oral, q4hr, as needed for cough, # 100 mL, 0 Refill(s), Pharmacy: [facility] [address] Start Date: 12/12/15 Status: Ordered traZODone Oral, [...] combined right and left heart Tonsillectomy Tympanostomy [place] tooth 1auto-populated from documented surgical case 2auto-populated from documented surgical case Social History Social History Type Response Smoking Status Former smoker; Type: Cigarettes; Tobacco use per day: 1 Pack1 , 2 1pt quit smoking 1 month ago 2quit 05/2015 Assessment and Plan No data available for this section
--- OUTSIDE RECORDS SUMMARY | 2017-01-20 22:09 | XMS REPORT | Referral Summary ---
Author Author [facility] Organization [facility] Address Unknown Phone Unavailable Care Team Providers Care Safety Net Maker Name Role Phone [facility] Primary Care Physician Unavailable Encounter TERRELL [id number] Date(s): 12/30/15 - 12/30/15 [facility] [address] [place] [address] [phone] Discharge Diagnosis: Right knee pain Discharge Disposition: 01-Home or Self Care Attending Physician: Vance Lei MD Admitting Physician: Vance Lei MD Vital Signs Most recent to 1 oldest [Reference Range]: Temperature Oral 36.8 degC [35.8-37.3 degC] (12/30/15 4:31 PM) Peripheral Pulse 76 bpm Rate [60-100 bpm] (12/30/15 5:58 PM) Respiratory Rate 18 br/min [14-20 br/min] (12/30/15 5:58 PM) Systolic Blood 106 mmHg Pressure [90-140 (12/30/15 5:58 PM) mmHg] Diastolic Blood 71 mmHg Pressure [60-90 (12/30/15 5:58 PM) mmHg] SpO2 99 % (12/30/15 5:58 PM) Problem List Condition Effective Dates Status [...] pain, # 300 mL, 0 Refill(s), Pharmacy: [facility] [address], 10 mL Oral q6hr,PRN:as needed for pain Start Date: 12/24/14 Status: Ordered Advair Diskus 250 mcg-50 mcg inhalation powder See Instructions, INHALE 1 PUFF BY INHALATION ROUTE 2 TIMES EVERY DAY IN THE MORNING AND EVENING APPROXIMATELY 12 HOURS APART, # 1 unknown unit, eRx: [facility] [id number], INHALE 1 PUFF BY INHALATION ROUTE 2 [...] Daily, # 30 tabs, 5 Refill(s), Pharmacy: [facility] [address], 1 tabs Oral Daily Start Date: 09/01/15 Status: Ordered codeine-guaiFENesin 10 mg-300 mg/5 mL oral liquid 5 mL, Oral, q6hr, as needed for cough, # 120 mL, 0 Refill(s) Start Date: 12/21/15 Status: Ordered Flonase 50 mcg/inh nasal spray 2 sprays, Nasal, Daily, # 1 Each, 5 Refill(s), Pharmacy: [facility] [address] Start Date: 12/12/15 Status: Ordered ibuprofen 800 mg oral tablet 800 mg 1 tabs, Oral, TID, Pain, # 15 tabs, 0 Refill(s) Start Date: 12/07/15 Status: Ordered loratadine 10 mg oral tablet 10 mg, Oral, Daily, # 30 tabs, 5 Refill(s), [facility] [address] , 10 mg Oral Daily Start Date: [...] # 1 Each, 1 Refill(s), [email or web address] [email or web address] Start Date: 06/11/15 Status: Ordered Robitussin DM To Go 20 mg-200 mg/10 mL oral liquid 10 mL, Oral, q4hr, as needed for cough, # 100 mL, 0 Refill(s), [email or web address] [address] Start Date: 12/12/15 Status: Ordered traZODone Oral, [...] 12/25/15 Stop Date: 01/03/16 Status: Ordered Results No data available for this section Immunizations Vaccine Date Refusal Reason pneumococcal 23-polyvalent vaccine 11/18/14 Procedures Procedure Date Related Diagnosis Body Site Esophagogastroduodenoscopy Balloon Dilat1 02/14/15 Examination Under Anesthesia2 02/14/15 Adenoidectomy Bilateral tubal ligation Bronchoscope Cardiac catheterization, combined right and left heart Tonsillectomy Tympanostomy [place] tooth 1auto-populated from documented surgical case 2auto-populated from documented surgical case Social History Social History Type Response Smoking Status Former smoker; Type: Cigarettes; Tobacco use per day: 1 Pack1 , 2 1pt quit smoking 1 month ago 2quit 05/2015 Assessment and Plan No data available for this section"
--- OUTSIDE RECORDS SUMMARY | 2017-01-20 22:09 | XMS REPORT | Referral Summary ---
Author Organization Unknown Address Unknown Phone Unavailable Care Team Providers Care Clip Baker Name Role Phone Pardeep Poole Primary Care Physician [phone] Encounter VC Date(s): 10/31/14 - 10/31/[address] [place], [place] [address] Discharge Diagnosis: Abdominal pain Discharge Disposition: Home or Self Care Attending Physician: Demarcus Burrell MD Admitting Physician: Demarcus Burrell MD Vital Signs Most recent to 1 oldest [Reference Range]: Temperature Oral 36.7 degC [35.8-37.3 degC] (10/31/14 4:58 PM) Peripheral Pulse 85 bpm Rate [60-100 bpm] (10/31/14 4:58 PM) Heart Rate Monitored 82 bpm [60-100 bpm] (10/31/14 7:12 PM) Respiratory Rate 18 br/min [14-20 br/min] (10/31/14 7:12 PM) Blood Pressure 121/83 mmHg [90-140/60-90 mmHg] (10/31/14 7:12 PM) Mean Arterial 90 mmHg Pressure, Cuff (10/31/14 6:13 PM) Most recent to 1 oldest [Reference Range]: SpO2 96 % (10/31/14 6:37 PM) Problem List Condition Effective Dates Status [...] Active psychosis(Confirmed) Headache(Confirmed) Active Heart Active murmur(Confirmed) Morbid Active patient obesity(Confirmed) L CN 10/30/13 Active Palsy(Confirmed) Seizure Active disorder(Confirmed) 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 Start Date: 09/30/14 Status: Ordered Bentyl 20 mg oral tablet 1 tabs, Oral, QID, # 28 tabs, 0 Refill(s) Start Date: 10/26/14 Stop Date: 11/02/14 Status: Ordered Carafate 1 g/10 mL oral suspension 10 mL, Oral, QIDACHS, # 1,200 mL, 6 Refill(s), Pharmacy: [facility] [address]808, 10 mL Oral QIDACHS Start Date: 10/07/14 Status: Ordered cyclobenzaprine 10 mg oral tablet 1 tabs, Oral, BID, as needed for spasm, # 30 tabs, 1 Refill(s), Pharmacy: [facility] 73815, 1 tabs Oral BID,PRN:as needed for spasm Start Date: 10/16/14 Status: Ordered Flonase 50 mcg/inh nasal spray 1 sprays, Nasal, BID, # 16 g, 5 Refill(s), Pharmacy: [facility] [address] Start Date: 09/30/14 Status: Ordered FLUoxetine See Instructions, 20 mg/5 mL Liquid 5 mL oral daily every evening, 0 Refill(s) Special Instructions: 20 mg/5 mL Liquid 5 mL oral daily every evening Start Date: 03/29/14 Status: Ordered Keppra BID, 0 Refill(s) Start Date: 10/19/14 Status: Ordered Latuda 60 mg, Oral, Daily, 0 Refill(s) Start Date: 03/29/14 Status: Ordered loratadine mg, 0 Refill(s) Start Date: 10/26/14 Status: Ordered mirtazapine Oral, Bedtime (once a day), 0 Refill(s) Start Date: 10/26/14 Status: Ordered NexIUM 40 mg oral delayed release capsule 1 caps, Oral, Daily, # 30 caps, 5 Refill(s), Pharmacy: [facility] [address], 1 caps Oral Daily Start Date: 07/19/14 Status: Ordered ProAir HFA 90 mcg/inh inhalation aerosol See Instructions, 2-4 puffs every 4-6 hrs prn., # 1 Each, 1 Refill(s), Pharmacy : [facility] [address] Special Instructions: 2-4 puffs every 4-6 hrs prn. Start Date: 09/30/14 Status: Ordered Remeron 60 mg, Oral, Bedtime (once a day), 0 Refill(s) Start Date: 09/19/14 Status: Ordered Ventolin HFA puffs, Inhalation, QID, 0 Refill(s) Start Date: 10/26/14 Status: Ordered Vimpat 100 mg oral tablet 1 tabs, Oral, BID, # 60 tabs, 2 Refill(s) Start Date: 10/08/14 Status: Ordered Vitamin D3 0 Refill(s) Start Date: 10/26/14 Status: Ordered Results No data available for this section Immunizations No data available for this section Procedures Procedure Date Related Diagnosis Body Site Adenoidectomy Bilateral tubal ligation Bronchoscope Tonsillectomy Tympanostomy [place] tooth Social History Social History Type Response Smoking Status Former smoker Assessment and Plan No data available for this section
--- OUTSIDE RECORDS SUMMARY | 2017-01-20 22:09 | XMS REPORT | Referral Summary ---
Author Author [facility] Organization [facility] Address Unknown Phone Unavailable Care Team Providers Care Manager Discovery Name Role Phone [facility] Primary Care Physician Unavailable Encounter [facility] [id number] Date(s): 12/06/15 - 12/07/15 [facility] [address] [place] [address] Discharge Diagnosis: Urinary tract infection Discharge Diagnosis: Ovarian cyst Discharge Diagnosis: Abdominal pain Discharge Disposition: 01-Home or Self Care Attending Physician: Sarah Angulo MD Admitting Physician: Sarah Angulo MD Vital Signs Most recent to 1 oldest [Reference Range]: Temperature Oral 37.0 degC [35.8-37.3 degC] (12/06/15 10:35 PM) Peripheral Pulse 87 bpm Rate [60-100 bpm] (12/06/15 10:35 PM) Heart Rate Monitored 96 bpm [60-100 bpm] (12/07/15 2:16 AM) Respiratory Rate 21 br/min [14-20 br/min] *HI* (12/07/15 2:16 AM) Blood Pressure 103/66 mmHg [90-140/60-90 mmHg] (12/07/15 3:26 AM) Mean Arterial 70 mmHg Pressure, Cuff (12/07/15 2:16 AM) SpO2 97 % (12/07/15 3:26 AM) Problem List Condition Effective Dates Status [...] pain, # 300 mL, 0 Refill(s), Pharmacy: [facility] [id number], 10 mL Oral q6hr,PRN:as needed for pain Start Date: 12/24/14 Status: Ordered Advair Diskus 250 mcg-50 mcg inhalation powder See Instructions, INHALE 1 PUFF BY INHALATION ROUTE 2 TIMES EVERY DAY IN THE MORNING AND EVENING APPROXIMATELY 12 HOURS APART, # 1 unknown unit, eRx: [facility] [id number], INHALE 1 PUFF BY INHALATION ROUTE 2 TIMES EVERY DAY IN THE MORNING AND EV... Start Date: 02/25/15 Status: Ordered Atrovent 42 mcg/inh nasal spray 2 sprays, Nasal, TID, # 2 Each, 5 Refill(s), Pharmacy: [facility] [id number] Start Date: 06/11/15 Stop Date: 06/11/16 Status: Ordered Carafate 1 g oral tablet 1 g 1 tabs, Oral, QID, Dissolve in water and drink, # 40 tabs, 0 Refill(s) Start Date: 08/31/15 Status: Ordered cetirizine 10 mg oral tablet 10 mg 1 tabs, Oral, Daily, # 30 tabs, 5 Refill(s), Pharmacy: [facility] [id number], 1 tabs Oral Daily Start Date: 09/01/15 [...] 6 Refill(s), Pharmacy: [facility] [id number], 1 caps Oral Daily Start Date: 02/24/15 Status: Ordered loratadine 10 mg oral tablet 10 mg, Oral, Daily, # 30 tabs, 5 Refill(s), Pharmacy: [facility] [id number] , 10 mg Oral Daily Start Date: [...] Refill(s), Pharmacy : [facility] [id number] Start Date: 06/11/15 Status: Ordered traZODone Oral, 0 Refill(s) Start Date: 04/05/15 Status: Ordered Viibryd Oral, Daily, 0 Refill(s) Start Date: 04/05/15 Status: Ordered Vitamin D3 1,000 Intl_Units, Oral, Daily, 0 Refill(s) Start Date: 10/26/14 Status: Ordered Results Hematology Most recent to 1 oldest [Reference Range]: WBC [4.8-10.8 7.0 10*3/uL 10*3/uL] (12/07/15 12:18 AM) RBC [4.00-5.20] 4.67 (12/07/15 12:18 AM) Hgb [12.0-16.0 11.7 gm/dL gm/dL] *LOW* (12/07/15 12:18 AM) Hct [37.0-47.0 %] 38.2 % (12/07/1518 AM) MCV [82.0-99.0 fL] 81.8 fL *LOW* (12/07/15 AM) MCH [27.0-32.0 pg] 25.1 pg *LOW* (12/07/15) MCHC [32.0-36.0 30.6 gm/dL gm/dL] *LOW* (12/07/15) RDW [11.5-14.5 %] 18.8 % *HI* (12/07/1518 AM) Platelet [150-400 235 10*3/uL 10*3/uL] (12/07/1518 AM) MPV [9.4-12.4 fL] 9.5 fL (12/07/1518 AM) Immature 0.1 % Granulocytes (12/07/15) [0.0-1.0 %] Neutrophils [51-75 62 % %] (12/07/1518 AM) Lymphocytes [20-46 30 % %] (12/07/1518 AM) Monocytes [4-11 %] 7 % (12/07/1518 AM) Eosinophils [0-4 %] 1 % (12/07/15 AM) Basophils [0-2 %] 0 % (12/07/1518 AM) Neutro Absolute 4.36 10*3 [1.90-7.00 10*3] (12/07/15:18 AM) Lymph Absolute 2.08 10*3 [0.80-3.30 10*3] (12/07/15 12:18 AM) [place] Absolute 0.49 10*3 [0.30-1.00 10*3] (12/07/15:18 AM) Eos Absolute 0.09 10*3 [0.00-0.50 10*3] (12/07/15:18 AM) Baso Absolute 0.02 10*3 [0.00-0.20 10*3] (12/07/15 12:18 AM) Nucleated RBC 0.0 /100 WBC Automated [0 /100 (12/07/15:18 AM) WBC] Chemistry Most recent to 1 oldest [Reference Range]: Sodium Lvl [136-144 139 mEq/L mEq/L] (12/07/15:18 AM) Potassium Lvl 3.8 mEq/L [3.6-5.1 mEq/L] (12/07/1518 AM) Chloride [99-109 107 mEq/L mEq/L] (12/07/15:18 AM) CO2 [22-32 mEq/L] 23 mEq/L (12/07/1518 AM) AGAP [3-20] 9 (12/07/1518 AM) BUN [4-20 mg/dL] 6 mg/dL (12/07/1518 AM) Glucose Lvl [70-100 93 mg/dL mg/dL] (12/07/1518 AM) Creatinine Lvl 0.68 mg/dL [0.44-1.03 mg/dL] (12/07/1518 AM) eGFR [>60] >60 1 (12/07/1518 AM) Calcium Lvl 9.3 mg/dL [8.6-10.0 mg/dL] (12/07/15:18 AM) Albumin Lvl [3.5-4.8 3.6 gm/dL gm/dL] (12/07/1518 AM) Total Protein 7.5 gm/dL [6.1-7.9 gm/dL] (12/07/15:18 AM) Globulin [1.9-4.3 3.9 gm/dL gm/dL] (12/07/1518 AM) ALT [14-54 U/L] 13 U/L *LOW* (12/07/15:18 AM) AST [15-41 U/L] 16 U/L (12/07/15 12:18 AM) Alk Phos [26-104 88 U/L U/L] (12/07/15:18 AM) Bili Total [0.2-1.2 0.6 mg/dL 2 mg/dL] (12/07/15 12:18 AM) Lipase Lvl [8-48 30 U/L U/L] (12/07/15:18 AM) U Beta hCG Ql Neg (12/07/15 12:22 AM) 1Result Comment: Multiply eGFR results by 1.21 for race. 2Result Comment: Naproxen, specifically the metabolite O-desmethylnaproxen, may cause spurious elevation in Total Bilirubin levels. Urinalysis Most recent to 1 oldest [Reference Range]: UA Color Yellow (12/07/15 12:18 AM) UA Appear Sl Cloudy (12/07/15 12:18 AM) UA pH [5.0-8.0] 8.0 (12/07/15 12:18 AM) UA Leuk Est Trace [Negative] *ABN* (12/07/15 12:18 AM) UA Nitrite Negative [Negative] (12/07/15 12:18 AM) UA Protein Negative [Negative] (12/07/15 12:18 AM) UA Glucose Negative [Negative] (12/07/15 12:18 AM) UA Ketones Negative [Negative] (12/07/15 12:18 AM) UA Urobilinogen >=4.0 mg/dL [<1.0 mg/dL] (12/07/15 12:18 AM) UA Bili [Negative] Negative (12/07/15 12:18 AM) UA Blood [Negative] Negative (12/07/15 12:18 AM) UA Spec Grav 1.020 [1.003-1.030] (12/07/15 12:18 AM) Type Clean Catch (12/07/15 12:18 AM) UA WBC [0-4] 5-10 *ABN* (12/07/15 12:18 AM) UA RBC [0-2] 0-2 (12/07/15 12:18 AM) Epithelial Cells 5-10 (12/07/15 12:18 AM) UA Bacteria Occasional *ABN* (12/07/15 12:18 AM) UA Mucous Present (12/07/15 12:18 AM) Immunizations Vaccine Date Refusal Reason pneumococcal 23-polyvalent vaccine 11/18/14 Procedures Procedure Date Related Diagnosis Body Site Esophagogastroduodenoscopy Balloon Dilat1 02/14/15 Examination Under Anesthesia2 02/14/15 Adenoidectomy Bilateral tubal ligation Bronchoscope Cardiac catheterization, combined right and left heart Tonsillectomy Tympanostomy [place] tooth 1auto-populated from documented surgical case 2auto-populated from documented surgical case Social History Social History Type Response Smoking Status Never smoker Assessment and Plan No data available for this section
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
--- OUTSIDE RECORDS SUMMARY | 2017-01-20 22:09 | XMS REPORT | Referral Summary ---
Author Author [facility] Organization [facility] Address Unknown Phone Unavailable Care Team Providers Care Parimutuel Clerk Name Role Phone Imelda Martin Primary Care Physician [phone] Encounter [facility] Date(s): 09/19/16 - 09/20/16 [facility] [address] [place] [address] [phone] Discharge Diagnosis: Non specific Pelvic pain Discharge Disposition: 01-Home or Self Care Attending Physician: Demarcus Burrell MD Admitting Physician: Demarcus Burrell MD Vital Signs Most recent to 1 oldest [Reference Range]: Temperature Oral 36.6 degC [35.8-37.3 degC] (09/19/16 9:01 PM) Peripheral Pulse 89 bpm Rate [60-100 bpm] (09/20/16 12:08 AM) Heart Rate Monitored 83 bpm [60-100 bpm] (09/19/16 10:30 PM) Respiratory Rate 18 br/min [14-20 br/min] (09/20/16 12:08 AM) Blood Pressure 110/78 mmHg [90-140/60-90 mmHg] (09/20/16 12:08 AM) Mean Arterial 90 mmHg Pressure, Cuff (09/19/16 10:30 PM) SpO2 99 % (09/20/16 12:08 AM) Problem List Condition Effective Dates Status [...] BID, # 60 tabs, 0 Refill(s), Pharmacy: [id number], 1 tabs Oral BID Start Date: 07/12/16 [...] to 1 oldest [Reference Range]: WBC [4.8-10.8 8.4 10*3/uL 10*3/uL] (09/19/16 10:04 PM) RBC [4.00-5.20] 4.20 (09/19/16 10:04 PM) Hgb [12.0-16.0 9.9 gm/dL gm/dL] *LOW* (09/19/16 10:04 PM) Hct [37.0-47.0 %] 32.8 % *LOW* (09/19/16 10:04 PM) MCV [82.0-99.0 fL] 78.1 fL *LOW* (09/19/16 10:04 PM) MCH [27.0-32.0 pg] 23.6 pg *LOW* (09/19/16 10:04 PM) MCHC [32.0-36.0 30.2 gm/dL gm/dL] *LOW* (09/19/16 10:04 PM) RDW [11.5-14.5 %] 18.3 % *HI* (09/19/16 10:04 PM) Platelet [150-400 229 10*3/uL 10*3/uL] (09/19/16 10:04 PM) MPV [9.4-12.4 fL] 9.5 fL (09/19/16 10:04 PM) Immature 0.1 % Granulocytes (09/19/16 10:04 PM) [0.0-1.0 %] Neutrophils [51-75 66 % %] (09/19/16 10:04 PM) Lymphocytes [20-46 25 % %] (09/19/16 10:04 PM) Monocytes [4-11 %] 8 % (09/19/16 10:04 PM) Eosinophils [0-4 %] 1 % (09/19/16 10:04 PM) Basophils [0-2 %] 0 % (09/19/16 10:04 PM) Neutro Absolute 5.55 10*3 [1.90-7.00 10*3] (09/19/16 10:04 PM) Lymph Absolute 2.12 10*3 [0.80-3.30 10*3] (09/19/16 10:04 PM) [place] Absolute 0.69 10*3 [0.30-1.00 10*3] (09/19/16 10:04 PM) Eos Absolute 0.06 10*3 [0.00-0.50 10*3] (09/19/16 10:04 PM) Baso Absolute 0.02 10*3 [0.00-0.20 10*3] (09/19/16 10:04 PM) Nucleated RBC 0.0 /100 WBC Automated [0 /100 (09/19/16 10:04 PM) WBC] Chemistry Most recent to 1 oldest [Reference Range]: Sodium Lvl [136-144 135 mEq/L mEq/L] *LOW* (09/19/16 10:04 PM) Potassium Lvl 3.5 mEq/L [3.6-5.1 mEq/L] *LOW* (09/19/16 10:04 PM) Chloride [99-109 103 mEq/L mEq/L] (09/19/16 10:04 PM) CO2 [22-32 mEq/L] 24 mEq/L (09/19/16 10:04 PM) AGAP [3-20] 8 (09/19/16 10:04 PM) BUN [4-20 mg/dL] 11 mg/dL (09/19/16 10:04 PM) Glucose Lvl [70-100 86 mg/dL mg/dL] (09/19/16 10:04 PM) Creatinine Lvl 0.70 mg/dL [0.44-1.03 mg/dL] (09/19/16 10:04 PM) eGFR [>60] >60 1 (09/19/16 10:04 PM) Calcium Lvl 9.1 mg/dL [8.6-10.0 mg/dL] (09/19/16 10:04 PM) Albumin Lvl [3.5-4.8 3.4 gm/dL gm/dL] *LOW* (09/19/16 10:04 PM) Total Protein 6.8 gm/dL [6.1-7.9 gm/dL] (09/19/16 10:04 PM) Globulin [1.9-4.3 3.4 gm/dL gm/dL] (09/19/16 10:04 PM) ALT [14-54 U/L] 11 U/L *LOW* (09/19/16 10:04 PM) AST [15-41 U/L] 16 U/L (09/19/16 10:04 PM) Alk Phos [26-104 85 U/L U/L] (09/19/16 10:04 PM) Bili Total [0.2-1.2 0.5 mg/dL 2 mg/dL] (09/19/16 10:04 PM) U Beta hCG Ql Neg (09/19/16 9:33 PM) 1Result Comment: Multiply eGFR results by 1.21 for race. 2Result Comment: Naproxen, specifically the metabolite O-desmethylnaproxen, may cause spurious elevation in Total Bilirubin levels. Urinalysis Most recent to 1 oldest [Reference Range]: UA Color Yellow (09/19/16 9:19 PM) UA Appear Clear (09/19/16 9:19 PM) UA pH [5.0-8.0] 7.0 (09/19/16 9:19 PM) UA Leuk Est Negative [Negative] (09/19/16 9:19 PM) UA Nitrite Negative [Negative] (09/19/16 9:19 PM) UA Protein Negative [Negative] (09/19/16 9:19 PM) UA Glucose Negative [Negative] (09/19/16 9:19 PM) UA Ketones Negative [Negative] (09/19/16 9:19 PM) UA Urobilinogen Negative [<1.0] (09/19/16 9:19 PM) UA Bili [Negative] Negative (09/19/16 9:19 PM) UA Blood [Negative] Negative (09/19/16 9:19 PM) UA Spec Grav 1.015 [1.003-1.030] (09/19/16 9:19 PM) Type Clean Catch (09/19/16 9:19 PM) Microbiology Reports TEST: Affirm Vaginitis Panel STATUS: Auth (Verified) BODY SITE: SOURCE: Cervix/Vaginal COLLECTED DATE/TIME: 09/19/16 9:53 PM Affirm Vaginitis Panel Negative for Trichomonas [...] combined right and left heart Tonsillectomy Tympanostomy [place] tooth 1auto-populated from documented surgical case 2auto-populated from documented surgical case 3auto-populated from documented surgical case 4auto-populated from documented surgical case 5auto-populated from documented surgical case Social History Social History Type Response Smoking Status Never smoker Assessment and Plan No data available for this section
--- OUTSIDE RECORDS SUMMARY | 2017-01-20 22:09 | XMS REPORT | CCD ---
Author Author [place], [facility] - Organization Unknown Address Unknown Phone [...] not been performed. Results LAB--BEDSIDE TESTING from 08/23/2013 8:47 PMAnion Gap NPT 12 (3-20 ) BUN Venous NPT 5 mg/dl (4-20 mg/dl) Calcium Ionized Venous 1.22 mmol/L (1.19-1.41 mmol/L) Venous CL NPT 110 mEq/L H (99-109 mEq/L) Creatinine Venous NPT 0.6 mg/dL (0.4-1.0 mg/dL) Glucose Venous 175 mg/dL H (70-100 mg/dL) HCT Venous NPT 30.0 % L (37.0-47.0 %) HGB Venous NPT 10.2 g/dL L (12.0-16.0 g/dL) Potassium Venous 4.0 mEq/L (3.6-5.1 mEq/L) Sodium Venous 140 mEq/L (136-144 mEq/L) Total CO2 Venous 18 mEq/L L (25-29 mEq/L)
--- OUTSIDE RECORDS SUMMARY | 2017-01-20 22:09 | XMS REPORT | Referral Summary ---
Author Author [facility] Organization [facility] Address Unknown Phone Unavailable Care Team Providers Care Artifacts Conservator Name Role Phone [facility] Primary Care Physician Unavailable Encounter [facility] [id number] Date(s): 06/05/15 - 06/05/15 [facility] [address] [place], [place] [address] Discharge Diagnosis: Shuddering spell Discharge Disposition: 01-Home [...] pain, # 300 mL, 0 Refill(s), Pharmacy: [facility] [id number], 10 mL Oral q6hr,PRN:as needed for pain Start Date: 12/24/14 Status: Ordered Advair Diskus 250 mcg-50 mcg inhalation powder See Instructions, INHALE 1 PUFF BY INHALATION ROUTE 2 TIMES EVERY DAY IN THE MORNING AND EVENING APPROXIMATELY 12 HOURS APART, # 1 unknown unit, eRx: [facility] [id number], INHALE 1 PUFF BY INHALATION ROUTE 2 TIMES EVERY DAY IN THE MORNING AND EV... Start Date: 02/25/15 Status: Ordered Carafate 1 g oral tablet 1 g 1 tabs, Oral, QID, Dissolve in water and drink, # 40 tabs, 0 Refill(s) Start Date: 08/31/15 Status: Ordered cetirizine 10 mg oral tablet 10 mg 1 tabs, Oral, Daily, # 30 tabs, 5 Refill(s), Pharmacy: [facility] [id number], 1 tabs Oral Daily Start Date: 09/01/15 Status: Ordered Flonase 50 mcg/inh nasal spray 2 sprays, Nasal, Daily, # 1 Each, 5 Refill(s), Pharmacy: [facility] [address]74 Start Date: 12/12/15 Status: Ordered ibuprofen 800 mg oral tablet 800 mg 1 tabs, Oral, TID, Pain, # 15 tabs, 0 Refill(s) Start Date: 12/07/15 Status: Ordered loratadine 10 mg oral tablet 10 mg, Oral, Daily, # 30 tabs, 5 Refill(s), Pharmacy: [facility] , 10 mg Oral Daily Start Date: [...] # 1 Each, 1 Refill(s), Pharmacy : [facility] [address] Start Date: 06/11/15 Status: Ordered Robitussin DM To Go 20 mg-200 mg/10 mL oral liquid 10 mL, Oral, q4hr, as needed for cough, # 100 mL, 0 Refill(s), Pharmacy: [facility] [address]195 Start Date: 12/12/15 Status: Ordered traZODone Oral, [...] combined right and left heart Tonsillectomy Tympanostomy [place] tooth 1auto-populated from documented surgical case 2auto-populated from documented surgical case Social History Social History Type Response Smoking Status Former smoker; Type: Cigarettes Assessment and Plan No data available for this section
[2017-01-20 22:10] VITALS: Ht 154.9 cm; Wt 92.9 kg
--- OUTSIDE RECORDS SUMMARY | 2017-01-20 22:10 | XMS REPORT | Referral Summary ---
Author Organization Unknown Address Unknown Phone Unavailable Care Team Providers Care Photographer Apprentice Lithographic Name Role Phone Pardeep Poole Primary Care Physician [phone] Encounter [facility] Date(s): 01/04/15 - 01/04/15 [facility] [address] [place] [address] [place] ( 1 ) - Discharge Diagnosis: Chronic chest pain Discharge Disposition: Home or Self Care Attending Physician: Santos Tesfaye MD Admitting Physician: Santos Tesfaye MD Vital Signs Most recent to 1 oldest [Reference Range]: Temperature Oral 36.4 degC [35.8-37.3 degC] (01/04/15 4:00 AM) Heart Rate Monitored 75 bpm [60-100 bpm] (01/04/15 4:00 AM) Respiratory Rate 18 br/min [14-20 br/min] (01/04/15 4:00 AM) Blood Pressure 94/56 mmHg [90-140/60-90 mmHg] (01/04/15 4:00 AM) Most recent to 1 oldest [Reference Range]: SpO2 98 % (01/04/15 4:00 AM) Problem List Condition Effective Dates Status [...] pain, # 300 mL, 0 Refill(s), Pharmacy: [facility] [address]14, 10 mL Oral q6hr,PRN:as needed for pain Start Date: 12/24/14 Status: Ordered Advair Diskus 250 mcg-50 mcg inhalation powder See Instructions, INHALE 1 PUFF BY INHALATION ROUTE 2 TIMES EVERY DAY IN THE MORNING AND EVENING APPROXIMATELY 12 HOURS APART, # 1 unknown unit, 1 Refill(s) , eRx: [facility] [id number], INHALE 1 PUFF BY INHALATION ROUTE 2 TIMES EVERY DAY IN THE M... Special Instructions: INHALE 1 PUFF BY INHALATION ROUTE 2 TIMES EVERY DAY IN THE MORNING AND EVENING APPROXIMATELY 12 HOURS APART Start Date: 12/02/14 Status: Ordered Flonase 50 mcg/inh nasal spray 2 sprays, Nasal, Daily, # 1 Each, 5 Refill(s), Pharmacy: [facility] [address] Start Date: 12/03/14 Status: Ordered FLUoxetine 20 mg, Oral, qAM, 0 Refill(s) Start Date: 11/18/14 Status: Ordered imipramine 25 mg oral tablet 2 tabs, Oral, Bedtime (once a day), # 60 tabs, 3 Refill(s), Pharmacy: [facility] 58030, 2 tabs Oral Bedtime (once a day) [...] 0 Refill(s) Start Date: 11/18/14 Status: Ordered [place] 5 mg-325 mg oral tablet 1 tabs, [...] Range]: Sodium Venous 139 mEq/L [136-144 mEq/L] (01/04/15 5:04 AM) Potassium Venous 3.9 mEq/L 1 [3.6-5.1 mEq/L] (01/04/15 5:04 AM) Calcium Ionized 1.29 mmol/L Venous [1.19-1.41 (01/04/15 5:04 AM) mmol/L] Total CO2 Venous 23 mEq/L [25-29 mEq/L] *LOW* (01/04/15 5:04 AM) HGB Venous NPT 12.6 gm/dL [12.0-16.0 gm/dL] (01/04/15 5:04 AM) HCT Venous 37.0 % [37.0-47.0 %] (01/04/15 5:04 AM) Glucose Venous 91 mg/dL [70-100 mg/dL] (01/04/15 5:04 AM) BUN Venous [4-20] 7 (01/04/15 5:04 AM) Creatinine Venous 0.7 mg/dL [0.4-1.0 mg/dL] (01/04/15 5:04 AM) Venous CL [99-109 100 mEq/L mEq/L] (01/04/15 5:04 AM) Anion Gap, [place] 16 [3-20] (01/04/15 5:04 AM) 1Result Comment: This test was performed on a whole blood specimen. The presence or absence of hemolysis cannot be assessed. Hemolysis can falsely elevate potassium levels. Normals are for venous specimens only. Immunizations Vaccine Date Refusal Reason pneumococcal 23-polyvalent vaccine 11/18/14 Procedures Procedure Date Related Diagnosis Body Site Adenoidectomy Bilateral tubal ligation Bronchoscope Tonsillectomy Tympanostomy [place] tooth Social History Social History Type Response Smoking Status Current every day smoker; Type: Cigarettes; Tobacco use per day: Pack Assessment and Plan No data available for this section
--- OUTSIDE RECORDS SUMMARY | 2017-01-20 22:10 | XMS REPORT | Referral Summary ---
Author Organization Unknown Address Unknown Phone Unavailable Care Team Providers Care Technology Intern Name Role Phone Pardeep Poole Primary Care Physician [phone] Encounter [facility] Date(s): 12/12/14 - 12/12/14 [facility] [address] [facility] [address] [place], [place] [address] Discharge Diagnosis: Seizure disorder Discharge Diagnosis: Pseudoseizures Discharge Disposition: Home or Self Care Attending Physician: Gonzales Nash MD Admitting Physician: Gonzales Nash MD Vital Signs Most recent to 1 oldest [Reference Range]: Peripheral Pulse 60 bpm Rate [60-100 bpm] (12/12/14 9:42 AM) Blood Pressure 120/72 mmHg [90-140/60-90 mmHg] (12/12/14 9:42 AM) Problem List Condition Effective Dates Status [...] 1 unknown unit, 1 Refill(s) , eRx: [facility] [id number], INHALE 1 PUFF BY INHALATION ROUTE 2 TIMES EVERY DAY IN THE M... Special Instructions: INHALE 1 PUFF BY INHALATION ROUTE 2 TIMES EVERY DAY IN THE MORNING AND EVENING APPROXIMATELY 12 HOURS APART Start Date: 12/02/14 Status: Ordered Carafate 1 g/10 mL oral suspension 10 mL, Oral, QIDACHS, # 1,200 mL, 6 Refill(s), Pharmacy: [id number], 10 mL Oral QIDACHS Start Date: 10/07/14 Status: Ordered Flonase 50 mcg/inh nasal spray 2 sprays, Nasal, Daily, # 1 Each, 5 Refill(s), Pharmacy: [id number] Start Date: 12/03/14 Status: Ordered FLUoxetine 20 [...] # 1 Each, 1 Refill(s), Pharmacy : [id number] Special Instructions: 2-4 puffs every 4-6 hrs [...] Adenoidectomy Bilateral tubal ligation Bronchoscope Tonsillectomy Tympanostomy [place] tooth Social History Social History Type Response Smoking Status Former smoker Assessment and Plan No data available for this section
--- OUTSIDE RECORDS SUMMARY | 2017-01-20 22:10 | XMS REPORT | Referral Summary ---
Author Author [facility] Organization [facility] Address Unknown Phone Unavailable Care Team Providers Care Commercial Journeyman Electrician Name Role Phone Imelda Martin Primary Care Physician [phone] Encounter Date(s): 02/20/15 - 02/20/15 [facility] [address] [place] [address] Discharge Diagnosis: Anemia Discharge Disposition: 01-Home or Self Care Attending [...] pain, # 300 mL, 0 Refill(s), Pharmacy: [facility] 07577, 10 mL Oral q6hr,PRN:as needed for pain Start Date: 12/24/14 Status: Ordered Advair Diskus 250 mcg-50 mcg inhalation powder See Instructions, INHALE 1 PUFF BY INHALATION ROUTE 2 TIMES EVERY DAY IN THE MORNING AND EVENING APPROXIMATELY 12 HOURS APART, # 1 unknown unit, eRx: [facility] 56477, INHALE 1 PUFF BY INHALATION ROUTE 2 TIMES EVERY DAY IN THE MORNING AND EV... Start Date: 02/25/15 Status: Ordered albuterol 2.5 mg/3 mL (0.083%) inhalation solution 3 mL, Inhalation, q6hr (scheduled), # 60 Each, 1 Refill(s), Pharmacy: [facility] 26233, 3 mL Inhalation q6hr (scheduled) Start Date: 02/13/15 Status: Ordered Atrovent 42 mcg/inh nasal spray 2 sprays, Nasal, TID, # 2 Each, 5 Refill(s), Pharmacy: [facility] 68761 Start Date: 06/11/15 Stop Date: 06/11/16 Status: Ordered Chloraseptic Bowen 1.4% topical spray 5 sprays, Oral, q2hr, # 10 mL, 0 Refill(s) Start Date: 08/11/15 Stop Date: 08/11/16 Status: Ordered levETIRAcetam 500 mg oral tablet See Instructions, TAKE 3 TABLETS BY MOUTH TWICE DAILY, # 180 tabs, 12 Refill(s) , eRx: [facility] [id number], TAKE 3 TABLETS BY MOUTH TWICE DAILY Start Date: 02/27/15 Status: Ordered Linzess 290 mcg oral capsule 1 caps, Oral, Daily, # 30 caps, 6 Refill(s), Pharmacy: [facility] 66903, 1 caps Oral Daily Start Date: 02/24/15 Status: Ordered loratadine 10 mg oral tablet 10 mg, Oral, Daily, # 30 tabs, 5 Refill(s), Pharmacy: [facility] 15394 , 10 mg Oral Daily Start Date: [...] : [facility] [address] Start Date: 06/11/15 Status: Ordered traZODone Oral, [...] to 1 oldest [Reference Range]: WBC [4.8-10.8 8.0 10*3/uL 10*3/uL] (02/20/15 2:02 PM) RBC [4.00-5.20 4.42 10*6/uL 10*6/uL] (02/20/15 2:02 PM) Hgb [12.0-16.0 12.0 gm/dL gm/dL] (02/20/15 2:02 PM) Hct [37.0-47.0 %] 38.9 % (02/20/15 2:02 PM) MCV [82.0-99.0 fL] 88.0 fL (02/20/15 2:02 PM) MCH [27.0-32.0 pg] 27.1 pg (02/20/15 2:02 PM) MCHC [32.0-36.0 30.8 gm/dL gm/dL] *LOW* (02/20/15 2:02 PM) RDW [11.5-14.5 %] 16.5 % *HI* (02/20/15 2:02 PM) Platelet [150-400 249 10*3/uL 10*3/uL] (02/20/15 2:02 PM) MPV [8.8-14.8 fL] 10.0 fL (02/20/15 2:02 PM) Immature 0.1 % Granulocytes (02/20/15 2:02 PM) [0.0-1.0 %] Neutrophils [51-75 74 % %] (02/20/15 2:02 PM) Lymphocytes [20-46 19 % %] *LOW* (02/20/15 2:02 PM) Monocytes [4-11 %] 5 % (02/20/15 2:02 PM) Eosinophils [0-4 %] 1 % (02/20/15 2:02 PM) Basophils [0-2 %] 0 % (02/20/15 2:02 PM) Neutro Absolute 5.91 10*3 [1.90-7.00 10*3] (02/20/15 2:02 PM) Lymph Absolute 1.53 10*3 [0.80-3.30 10*3] (02/20/15 2:02 PM) Talbot Absolute 0.39 10*3 [0.30-1.00 10*3] (02/20/15 2:02 PM) Eos Absolute 0.11 10*3 [0.00-0.50 10*3] (02/20/15 2:02 PM) Baso Absolute 0.02 10*3 [0.00-0.20 10*3] (02/20/15 2:02 PM) Immunizations Vaccine Date Refusal Reason pneumococcal 23-polyvalent vaccine 11/18/14 Procedures Procedure Date Related Diagnosis Body Site Esophagogastroduodenoscopy Balloon Dilat1 02/14/15 Examination Under Anesthesia2 02/14/15 Adenoidectomy Bilateral tubal ligation Bronchoscope Cardiac catheterization, combined right and left heart Tonsillectomy Tympanostomy [place] tooth 1auto-populated from documented surgical case 2auto-populated from documented surgical case Social History Social History Type Response Smoking Status Former smoker; Type: Cigarettes; Tobacco use per day: 1 Pack1 1quit 05/2015 Assessment and Plan Extracted from: Title: Ambulatory Patient Education Author: Rafael Katz MD Date: 02/20/15 No follow up information was provided.
--- OUTSIDE RECORDS SUMMARY | 2017-01-20 22:10 | XMS REPORT | Referral Summary ---
Author Author [facility] Organization [facility] Address Unknown Phone Unavailable Care Team Providers Care Oncology Registrar Name Role Phone Imelda Martin Primary Care Physician [phone] Encounter [facility] Date(s): 08/26/15 - 08/26/15 [facility] [address], [place] [address] Discharge Diagnosis: Viral illness Discharge Diagnosis: Nausea & vomiting Discharge Diagnosis: Acute diarrhea Discharge Disposition: 01-Home or Self Care Attending Physician: Presley Frias MD Admitting Physician: Presley Frias MD Vital Signs Most recent to 1 oldest [Reference Range]: Temperature Oral 36.8 degC [35.8-37.3 degC] (08/26/15 5:47 PM) Peripheral Pulse 96 bpm Rate [60-100 bpm] (08/26/15 5:47 PM) Heart Rate Monitored 95 bpm [60-100 bpm] (08/26/15 6:20 PM) Respiratory Rate 16 br/min [14-20 br/min] (08/26/15 6:20 PM) Systolic Blood 114 mmHg Pressure [90-140 (08/26/15 6:20 PM) mmHg] Diastolic Blood 87 mmHg Pressure [60-90 (08/26/15 6:20 PM) mmHg] SpO2 96 % (08/26/15 6:20 PM) Problem List Condition Effective Dates Status [...] pain, # 300 mL, 0 Refill(s), Pharmacy: [facility] [id number], 10 mL Oral q6hr,PRN:as needed for pain Start Date: 12/24/14 Status: Ordered Advair Diskus 250 mcg-50 mcg inhalation powder See Instructions, INHALE 1 PUFF BY INHALATION ROUTE 2 TIMES EVERY DAY IN THE MORNING AND EVENING APPROXIMATELY 12 HOURS APART, # 1 unknown unit, eRx: [facility] [id number], INHALE 1 PUFF BY INHALATION ROUTE 2 TIMES EVERY DAY IN THE MORNING AND EV... Start Date: 02/25/15 Status: Ordered albuterol 2.5 mg/3 mL (0.083%) inhalation solution 3 mL, Inhalation, q6hr (scheduled), # 60 Each, 1 Refill(s), Pharmacy: [facility] [id number], 3 mL Inhalation q6hr (scheduled) Start Date: 02/13/15 Status: Ordered Atrovent 42 mcg/inh nasal spray 2 sprays, Nasal, TID, # 2 Each, 5 Refill(s), Pharmacy: [facility] 22529 Start Date: 06/11/15 Stop Date: 06/11/16 Status: Ordered Chloraseptic Bowen 1.4% topical spray 5 sprays, Oral, q2hr, # 10 mL, 0 Refill(s) Start Date: 08/11/15 Stop Date: 08/11/16 Status: Ordered levETIRAcetam 500 mg oral tablet See Instructions, TAKE 3 TABLETS BY MOUTH TWICE DAILY, # 180 tabs, 12 Refill(s) , eRx: [facility] [id number], TAKE 3 TABLETS BY MOUTH TWICE DAILY Start Date: 02/27/15 Status: Ordered Linzess 290 mcg oral capsule 1 caps, Oral, Daily, # 30 caps, 6 Refill(s), Pharmacy: [facility] [address], 1 caps Oral Daily Start Date: 02/24/15 Status: Ordered loratadine 10 mg oral tablet 10 mg, Oral, Daily, # 30 tabs, 5 Refill(s), Pharmacy: [facility] [address]4725 , 10 mg Oral Daily Start Date: 01/14/15 Status: Ordered ondansetron 4 mg oral tablet 4 mg 1 tabs, Oral, q4hr, Nausea or Vomiting, # 12 tabs, 0 Refill(s) Start Date: 04/05/15 Status: Ordered ondansetron 4 mg oral tablet, [...] # 1 Each, 1 Refill(s), Pharmacy : [facility] [address] Start Date: 06/11/15 Status: Ordered traZODone Oral, [...] oldest [Reference Range]: Screen, Negative Urine NPT (08/26/15 7:22 PM) Urinalysis Most recent to 1 oldest [Reference Range]: UA Color Lt Yellow (08/26/15 7:19 PM) UA Appear Clear (08/26/15 7:19 PM) UA pH [5.0-8.0] 8.0 (08/26/15 7:19 PM) UA Leuk Est Trace [Negative] *ABN* (08/26/15 7:19 PM) UA Nitrite Negative [Negative] (08/26/15 7:19 PM) UA Protein Negative [Negative] (08/26/15 7:19 PM) UA Glucose Negative [Negative] (08/26/15 7:19 PM) UA Ketones Negative [Negative] (08/26/15 7:19 PM) UA Urobilinogen Negative [<1.0] (08/26/15 7:19 PM) UA Bili [Negative] Negative (08/26/15 7:19 PM) UA Blood [Negative] Negative (08/26/15 7:19 PM) UA Spec Grav 1.010 [1.003-1.030] (08/26/15 7:19 PM) Type Clean Catch (08/26/15 7:19 PM) UA WBC [0-4] 0-2 (08/26/15 7:19 PM) UA RBC [0-2] 0-2 (08/26/15 7:19 PM) Epithelial Cells 0-2 (08/26/15 7:19 PM) UA Bacteria Occasional *ABN* (08/26/15 7:19 PM) UA Mucous Present (08/26/15 7:19 PM) Immunizations Vaccine Date Refusal Reason pneumococcal 23-polyvalent vaccine 11/18/14 Procedures Procedure Date Related Diagnosis Body Site Esophagogastroduodenoscopy Balloon Dilat1 02/14/15 Examination Under Anesthesia2 02/14/15 Adenoidectomy Bilateral tubal ligation Bronchoscope Cardiac catheterization, combined right and left heart Tonsillectomy Tympanostomy [place] tooth 1auto-populated from documented surgical case 2auto-populated from documented surgical case Social History Social History Type Response Smoking Status Former smoker; Type: Cigarettes; Tobacco use per day: 1 Pack1 1quit 05/2015 Assessment and Plan No data available for this section
--- OUTSIDE RECORDS SUMMARY | 2017-01-20 22:10 | XMS REPORT | Referral Summary ---
Author Author [facility] Organization [facility] Address Unknown Phone Unavailable Care Team Providers Care Story Reader Name Role Phone [facility] Primary Care Physician Unavailable Encounter [facility] [id number] Date(s): 01/06/16 - 01/06/16 [facility] [address] [place] [address] Discharge Diagnosis: Acute esophagitis Discharge Diagnosis: Pill esophagitis Discharge Disposition: 01-Home or Self Care Attending Physician: Demarcus Lin JR, DO Admitting Physician: Demarcus Lin JR, DO Vital Signs Most recent to 1 oldest [Reference Range]: Temperature Oral 36.8 degC [35.8-37.3 degC] (01/06/16 6:00 PM) Temperature Tympanic 36.4 degC [36.6-38.1 degC] *LOW* (01/06/16 5:41 PM) Peripheral Pulse 67 bpm Rate [60-100 bpm] (01/06/16 1:49 PM) Heart Rate Monitored 93 bpm [60-100 bpm] (01/06/16 6:00 PM) Respiratory Rate 18 br/min [14-20 br/min] (01/06/16 6:00 PM) Blood Pressure 149/107 mmHg [90-140/60-90 mmHg] *HI* (01/06/16 6:00 PM) SpO2 94 % (01/06/16 6:00 PM) Problem List Condition Effective Dates Status [...] pain, # 300 mL, 0 Refill(s), Pharmacy: [facility] [id number], 10 mL Oral q6hr,PRN:as needed for pain Start Date: 12/24/14 Status: Ordered Advair Diskus 250 mcg-50 mcg inhalation powder See Instructions, INHALE 1 PUFF BY INHALATION ROUTE 2 TIMES EVERY DAY IN THE MORNING AND EVENING APPROXIMATELY 12 HOURS APART, # 1 unknown unit, eRx: [facility] [id number], INHALE 1 PUFF BY INHALATION ROUTE 2 [...] Daily, # 30 tabs, 5 Refill(s), Pharmacy: [facility] [id number], 1 tabs Oral Daily Start Date: 09/01/15 Status: Ordered codeine-guaiFENesin 10 mg-300 mg/5 mL oral liquid 5 mL, Oral, q6hr, as needed for cough, # 120 mL, 0 Refill(s) Start Date: 12/21/15 Status: Ordered Flonase 50 mcg/inh nasal spray 2 sprays, Nasal, Daily, # 1 Each, 5 Refill(s), Pharmacy: [facility] [id number] Start Date: 12/12/15 Status: Ordered ibuprofen 800 mg oral tablet 800 mg 1 tabs, Oral, TID, Pain, # 15 tabs, 0 Refill(s) Start Date: 12/07/15 Status: Ordered loratadine 10 mg oral tablet 10 mg, Oral, Daily, # 30 tabs, 5 Refill(s), Pharmacy: [facility] [id number] , 10 mg Oral Daily Start Date: [...] 1 Each, 1 Refill(s), Pharmacy : [facility] 78169 Start Date: 06/11/15 Status: Ordered Robitussin DM To Go 20 mg-200 mg/10 mL oral liquid 10 mL, Oral, q4hr, as needed for cough, # 100 mL, 0 Refill(s), [facility] Start Date: 12/12/15 Status: Ordered traZODone Oral, 0 Refill(s) Start Date: 04/05/15 Status: Ordered Viibryd Oral, Daily, 0 Refill(s) Start Date: 04/05/15 Status: Ordered Vitamin D3 1,000 Intl_Units, Oral, Daily, 0 Refill(s) Start Date: 10/26/14 Status: Ordered Results Chemistry Most recent to 1 oldest [Reference Range]: Beta hCG Qnt <1 mIU/mL 1 (3/22/16 4:35 PM) 1Result Comment: Normal Ranges for Quantitative Beta-HCG are as follows: Non- Females: 0 - 5 Gestation Wks 95% Range 0.2 - 1 4 - 50 1 - 2 50 - 500 2 - 3 100 - 5000 3 - 4 500 - 10,000 4 - 5 1,000 - 50,000 5 - 6 10,000 - 100,000 6 - 8 15,000 - 200,000 8 - 12 10,000 - 100,000 Immunizations Vaccine Date Refusal Reason pneumococcal 23-polyvalent vaccine 11/18/14 Procedures Procedure Date Related Diagnosis Body Site Esophagogastroduodenoscopy Foreign Body 01/06/16 Removal1 Procedure with Anesthesia2 01/06/16 Esophagogastroduodenoscopy Balloon Dilat3 02/14/15 Examination Under Anesthesia4 02/14/15 Adenoidectomy Bilateral tubal ligation Bronchoscope Cardiac catheterization, combined right and left heart Tonsillectomy Tympanostomy [place] tooth 1auto-populated from documented surgical case 2auto-populated [...]
--- OUTSIDE RECORDS SUMMARY | 2017-01-20 22:10 | XMS REPORT | Referral Summary ---
Author Author [facility] Organization [facility] Address Unknown Phone Unavailable Care Team Providers Care Energy Conservation Engineer Name Role Phone Imelda Martin Primary Care Physician [phone] Encounter [facility] [id number] Date(s): 11/13/15 - 11/13/15 [facility] [address] [place] [address]- Discharge Diagnosis: Eustachian tube dysfunction Discharge Disposition: 01-Home or Self Care Attending Physician: Shannon Jordan Admitting Physician: Shannon Jordan Referring Physician: Rafael Katz MD Vital Signs No [...] pain, # 300 mL, 0 Refill(s), Pharmacy: [facility] 84083, 10 mL Oral q6hr,PRN:as needed for pain Start Date: 12/24/14 Status: Ordered Advair Diskus 250 mcg-50 mcg inhalation powder See Instructions, INHALE 1 PUFF BY INHALATION ROUTE 2 TIMES EVERY DAY IN THE MORNING AND EVENING APPROXIMATELY 12 HOURS APART, # 1 unknown unit, eRx: [facility] [id number], INHALE 1 PUFF BY INHALATION ROUTE 2 TIMES EVERY DAY IN THE MORNING AND EV... Start Date: 02/25/15 Status: Ordered Atrovent 42 mcg/inh nasal spray 2 sprays, Nasal, TID, # 2 Each, 5 Refill(s), Pharmacy: [facility] 77513 Start Date: 06/11/15 Stop Date: 06/11/16 Status: Ordered Carafate 1 g oral tablet 1 g 1 tabs, Oral, QID, Dissolve in water and drink, # 40 tabs, 0 Refill(s) Start Date: 08/31/15 Status: Ordered cetirizine 10 mg oral tablet 10 mg 1 tabs, Oral, Daily, # 30 tabs, 5 Refill(s), Pharmacy: [facility] 17113, 1 tabs Oral Daily Start Date: 09/01/15 Status: Ordered Keflex 500 mg oral capsule 500 mg 1 caps, Oral, QID, X 5 days, # 20 caps, 0 Refill(s) Start Date: 11/13/15 Stop Date: 11/18/15 Status: Ordered Linzess 290 mcg oral capsule 1 caps, Oral, Daily, # 30 caps, 6 Refill(s), Pharmacy: [facility] 50712, 1 caps Oral Daily Start Date: 02/24/15 Status: Ordered loratadine 10 mg oral tablet 10 mg, Oral, Daily, # 30 tabs, 5 Refill(s), Pharmacy: [facility] 29537 , 10 mg Oral Daily Start Date: [...] Refill(s), Pharmacy : [facility] [address] Start Date: 06/11/15 Status: Ordered Sudafed 12-Hour 120 mg oral tablet, extended release 120 mg 1 tabs, Oral, q12hr, # 20 tabs, 0 Refill(s), other reason (Rx) Start Date: 11/13/15 Stop Date: 11/27/15 Status: Ordered traZODone Oral, 0 Refill(s) Start [...] combined right and left heart Tonsillectomy Tympanostomy [place] tooth 1auto-populated from documented surgical case 2auto-populated from documented surgical case Social History Social History Type Response Smoking Status Never smoker Assessment and Plan No data available for this section
--- OUTSIDE RECORDS SUMMARY | 2017-01-20 22:10 | XMS REPORT | Referral Summary ---
Author Author [facility] Organization [facility] Address Unknown Phone Unavailable Care Team Providers Care Engine Boss Name Role Phone Imelda Martin Primary Care Physician [phone] Encounter [facility] Date(s): 03/29/15 - 03/29/15 [facility] [address] [address] [facility] Discharge Diagnosis: Otitis externa Discharge Diagnosis: Temporomandibular joint (TMJ) pain Discharge Disposition: 01-Home or Self Care Attending Physician: Provider, Immediate Care Admitting Physician: Provider, Immediate Care Vital Signs Most recent to 1 oldest [Reference Range]: Temperature Oral 36.7 degC [35.8-37.3 degC] (03/29/15 2:40 PM) Apical Heart Rate 116 bpm [60-100 bpm] *HI* (03/29/15 2:40 PM) Blood Pressure 143/97 mmHg [90-140/60-90 mmHg] *HI* (03/29/15 2:40 PM) SpO2 95 % (03/29/15 2:40 PM) Problem List Condition Effective Dates Status [...] pain, # 300 mL, 0 Refill(s), Pharmacy: [facility] [id number], 10 mL Oral q6hr,PRN:as needed for pain Start Date: 12/24/14 Status: Ordered Advair Diskus 250 mcg-50 mcg inhalation powder See Instructions, INHALE 1 PUFF BY INHALATION ROUTE 2 TIMES EVERY DAY IN THE MORNING AND EVENING APPROXIMATELY 12 HOURS APART, # 1 unknown unit, eRx: [facility] [id number], INHALE 1 PUFF BY INHALATION ROUTE 2 TIMES EVERY DAY IN THE MORNING AND EV... Start Date: 02/25/15 Status: Ordered albuterol 2.5 mg/3 mL (0.083%) inhalation solution 3 mL, Inhalation, q6hr (scheduled), # 60 Each, 1 Refill(s), Pharmacy: [facility] 48921, 3 mL Inhalation q6hr (scheduled) Start Date: 02/13/15 Status: Ordered Atrovent 42 mcg/inh nasal spray 2 sprays, Nasal, TID, # 2 Each, 5 Refill(s), Pharmacy: [facility] 36138 Start Date: 06/11/15 Stop Date: 06/11/16 Status: Ordered Carafate 1 g oral tablet 1 g 1 tabs, Oral, QID, Dissolve in water and drink, # 40 tabs, 0 Refill(s) Start Date: 08/31/15 Status: Ordered cetirizine 10 mg oral tablet 10 mg 1 tabs, Oral, Daily, # 30 tabs, 5 Refill(s), Pharmacy: [facility] 40957, 1 tabs Oral Daily Start Date: 09/01/15 Status: Ordered levETIRAcetam 500 mg oral tablet See Instructions, TAKE 3 TABLETS BY MOUTH TWICE DAILY, # 180 tabs, 12 Refill(s) , eRx: [facility] [id number], TAKE 3 TABLETS BY MOUTH TWICE DAILY Start Date: 02/27/15 Status: Ordered Linzess 290 mcg oral capsule 1 caps, Oral, Daily, # 30 caps, 6 Refill(s), Pharmacy: [facility] 09545, 1 caps Oral Daily Start Date: 02/24/15 Status: Ordered loratadine 10 mg oral tablet 10 mg, Oral, Daily, # 30 tabs, 5 Refill(s), Pharmacy: [facility] 455[address] , 10 mg Oral Daily Start Date: [...] 1 Refill(s), Pharmacy : [facility] [address] Start Date: 06/11/15 Status: Ordered traZODone Oral, [...] combined right and left heart Tonsillectomy Tympanostomy [place] tooth 1auto-populated from documented surgical case 2auto-populated from documented surgical case Social History Social History Type Response Smoking Status Former smoker; Type: Cigarettes; Tobacco use per day: 1 Pack1 1quit 05/2015 Assessment and Plan Extracted from: Title: Ear pain 93993 Author: Emery Souza MD Date: 03/29/15 Assessment/Plan 1.Otitis externa This may explain her tenderness with the ear speculum. I see no signs of bacterial infection. 2.Temporomandibular joint (TMJ) pain It's also possible this may be causing the tenderness in the ear canal, but is difficult to tell. Plan: We'll try Cortisporin otic suspension 2 drops 4 times a day in the right ear. I also will have her use ibuprofen 200 mg 2 4 times a day as needed. I discussed this may take several days to improve. No other antibiotics or medication changes needed. I did review some of her multiple medications with her. Orders: colistin/neomycin/thonzonium/HC otic, See Instructions, 2-3 drops Ear- Right QID fill ear canal and plug with saturated cotton, # 5 mL, 0 Refill(s), Pharmacy: [facility] [address]
--- OUTSIDE RECORDS SUMMARY | 2017-01-20 22:10 | XMS REPORT | Referral Summary ---
Author Author Via [facility] Organization Via [facility] Address Unknown Phone Unavailable Care Team Providers Care Terrapin Fisher Name Role Phone Imelda Martin Primary Care Physician [phone] Encounter VC Date(s): 11/25/15 - 11/25/[address] [facility] [address] [place], [place] [address] Discharge Diagnosis: Headache Discharge Disposition: 01-Home or Self Care Attending Physician: Presley Frias MD Admitting Physician: Presley Frias MD Vital Signs Most recent to 1 oldest [Reference Range]: Temperature Oral 36.6 degC [35.8-37.3 degC] (11/25/15 7:24 PM) Peripheral Pulse 79 bpm Rate [60-100 bpm] (11/25/15 7:50 PM) Respiratory Rate 16 br/min [14-20 br/min] (11/25/15 7:50 PM) Systolic Blood 133 mmHg Pressure [90-140 (11/25/15 7:50 PM) mmHg] Diastolic Blood 102 mmHg Pressure [60-90 *HI* mmHg] (11/25/15 7:50 PM) SpO2 99 % (11/25/15 7:50 PM) Problem List Condition Effective Dates Status [...] pain, # 300 mL, 0 Refill(s), Pharmacy: [facility] [id number], 10 mL Oral q6hr,PRN:as needed for pain Start Date: 12/24/14 Status: Ordered Advair Diskus 250 mcg-50 mcg inhalation powder See Instructions, INHALE 1 PUFF BY INHALATION ROUTE 2 TIMES EVERY DAY IN THE MORNING AND EVENING APPROXIMATELY 12 HOURS APART, # 1 unknown unit, eRx: [facility] [id number], INHALE 1 PUFF BY INHALATION ROUTE 2 TIMES EVERY DAY IN THE MORNING AND EV... Start Date: 02/25/15 Status: Ordered Atrovent 42 mcg/inh nasal spray 2 sprays, Nasal, TID, # 2 Each, 5 Refill(s), Pharmacy: [facility] [id number] Start Date: 06/11/15 Stop Date: 06/11/16 Status: Ordered Carafate 1 g oral tablet 1 g 1 tabs, Oral, QID, Dissolve in water and drink, # 40 tabs, 0 Refill(s) Start Date: 08/31/15 Status: Ordered cetirizine 10 mg oral tablet 10 mg 1 tabs, Oral, Daily, # 30 tabs, 5 Refill(s), Pharmacy: [facility] 77566, 1 tabs Oral Daily Start Date: 09/01/15 Status: Ordered Linzess 290 mcg oral capsule 1 caps, Oral, Daily, # 30 caps, 6 Refill(s), Pharmacy: [facility] 45891, 1 caps Oral Daily Start Date: 02/24/15 Status: Ordered loratadine 10 mg oral tablet 10 mg, Oral, Daily, # 30 tabs, 5 Refill(s), Pharmacy: [facility] , 10 mg Oral Daily Start Date: [...] # 1 Each, 1 Refill(s), Pharmacy : [facility] [address] Start Date: 06/11/15 Status: Ordered Sudafed 12-Hour [...] Range]: Sodium Venous 138 mEq/L [136-144 mEq/L] (11/25/15 8:04 PM) Potassium Venous 4.0 mEq/L 1 [3.6-5.1 mEq/L] (11/25/15 8:04 PM) Calcium Ionized 1.18 mmol/L Venous [1.19-1.41 *LOW* mmol/L] (11/25/15 8:04 PM) Total CO2 Venous 25 mEq/L [25-29 mEq/L] (11/25/15 8:04 PM) HGB Venous NPT 12.6 gm/dL [12.0-16.0 gm/dL] (11/25/15 8:04 PM) HCT Venous 37.0 % [37.0-47.0 %] (11/25/15 8:04 PM) Glucose Venous 86 mg/dL [70-100 mg/dL] (11/25/15 8:04 PM) BUN Venous [4-20] 6 (11/25/15 8:04 PM) Creatinine Venous 0.8 mg/dL [0.4-1.0 mg/dL] (11/25/15 8:04 PM) Venous CL [99-109 99 mEq/L mEq/L] (11/25/15 8:04 PM) Anion Gap, Darron 14 [3-20] (11/25/15 8:04 PM) Screen, Negative Urine NPT (11/25/15 8:21 PM) 1Result Comment: This test was performed on a whole blood specimen. The presence or absence of hemolysis cannot be assessed. Hemolysis can falsely elevate potassium levels. Normals are for venous specimens only. Therapeutic Drug Monitoring Most recent to 1 oldest [Reference Range]: Acetaminophen Lvl <10 ug/mL [10-30 ug/mL] (11/25/15 7:59 PM) Immunizations Vaccine Date Refusal Reason pneumococcal 23-polyvalent vaccine 11/18/14 Procedures Procedure Date Related Diagnosis Body Site Esophagogastroduodenoscopy Balloon Dilat1 02/14/15 Examination Under Anesthesia2 02/14/15 Adenoidectomy Bilateral tubal ligation Bronchoscope Cardiac catheterization, combined right and left heart Tonsillectomy Tympanostomy [place] tooth 1auto-populated from documented surgical case 2auto-populated from documented surgical case Social History Social History Type Response Smoking Status Never smoker Assessment and Plan No data available for this section
--- OUTSIDE RECORDS SUMMARY | 2017-01-20 22:10 | XMS REPORT | Referral Summary ---
Author Author [facility] Organization [facility] Address Unknown Phone Unavailable Care Team Providers Care Delivery Driver Name Role Phone [facility] Primary Care Physician Unavailable Encounter TERRELL [id number] Date(s): 02/04/16 - 02/04/16 [facility] [address] [place] [address] Discharge Diagnosis: Nonspecific chest pain Discharge Diagnosis: Musculoskeletal pain Discharge Disposition: 01-Home or Self Care Attending Physician: Vance Lei MD Admitting Physician: Vance Lei MD Vital Signs Most recent to 1 oldest [Reference Range]: Temperature Oral 36.7 degC [35.8-37.3 degC] (02/04/16 7:09 PM) Peripheral Pulse 93 bpm Rate [60-100 bpm] (02/04/16 5:55 PM) Heart Rate Monitored 91 bpm [60-100 bpm] (02/04/16 7:09 PM) Respiratory Rate 20 br/min [14-20 br/min] (02/04/16 7:09 PM) Blood Pressure 105/73 mmHg [90-140/60-90 mmHg] (02/04/16 7:09 PM) SpO2 97 % (02/04/16 7:09 PM) Problem List Condition Effective Dates Status [...] pain, # 300 mL, 0 Refill(s), Pharmacy: [id number], 10 mL Oral q6hr,PRN:as needed for pain Start Date: 12/24/14 Status: Ordered Advair Diskus 100 mcg-50 mcg inhalation powder 1 puffs, Inhalation, BID, # 180 Each, 0 Refill(s) Start Date: 01/23/16 Status: Ordered Advair Diskus 250 mcg-50 mcg inhalation powder See Instructions, INHALE 1 PUFF BY INHALATION ROUTE 2 TIMES EVERY DAY IN THE MORNING AND EVENING APPROXIMATELY 12 HOURS APART, # 1 unknown unit, eRx: [facility] [id number], INHALE 1 PUFF BY INHALATION ROUTE 2 [...] Daily, # 30 tabs, 5 Refill(s), Pharmacy: [id number], 1 tabs Oral Daily Start Date: 09/01/15 Status: Ordered Claritin mg, 0 Refill(s) Start Date: 01/23/16 Status: Ordered codeine-guaiFENesin 10 mg-300 mg/5 mL oral liquid 5 mL, Oral, q6hr, as needed for cough, # 120 mL, 0 Refill(s) Start Date: 12/21/15 Status: Ordered cyclobenzaprine 10 mg oral tablet 10 mg 1 tabs, Oral, TID, as needed for spasm, # 12 tabs, 0 Refill(s) Start Date: 01/30/16 Stop Date: 01/29/17 Status: Ordered Flonase 50 mcg/inh nasal spray 2 sprays, Nasal, Daily, # 1 Each, 5 Refill(s), Pharmacy: [id number] Start Date: 12/12/15 Status: Ordered ibuprofen 800 mg oral tablet 800 mg 1 tabs, Oral, TID, Pain, # 15 tabs, 0 Refill(s) Start Date: 12/07/15 Status: Ordered loratadine 0 Refill(s) Start Date: 01/23/16 Status: Ordered loratadine 10 mg oral tablet 10 mg, Oral, Daily, # 30 tabs, 5 Refill(s), Pharmacy: [facility] [id number] , 10 mg Oral Daily Start Date: 01/14/15 Status: Ordered meloxicam 15 mg oral tablet 15 mg 1 tabs, Oral, Daily, # 30 tabs, 0 Refill(s) Start Date: 12/12/15 Status: Ordered Mobic 7.5 mg oral tablet 7.5 mg 1 tabs, Oral, Daily, # 7 tabs, 0 Refill(s), Pharmacy: [facility], 1 tabs Oral Daily,x7 days Start Date: 01/20/16 Stop Date: 01/27/16 Status: Ordered Naprosyn 500 mg oral tablet 500 mg 1 tabs, Oral, BID, # 10 tabs, 0 Refill(s) Start Date: 01/17/16 Stop Date: 01/22/16 Status: Ordered olopatadine 0.1% ophthalmic solution See Instructions, 1 drop to affected eye daily prn, # 5 mL, 5 Refill(s), Pharmacy: [facility] Start Date: 02/02/16 Status: Ordered ondansetron 4 mg oral tablet [...] # 1 Each, 1 Refill(s), Pharmacy : [facility] [address] Start Date: 06/11/15 Status: Ordered Robitussin DM To Go 20 mg-200 mg/10 mL oral liquid 10 mL, Oral, q4hr, as needed for cough, # 100 mL, 0 Refill(s), Pharmacy: [facility] Start Date: 12/12/15 Status: Ordered Singulair qPM, 0 Refill(s) Start Date: 01/23/16 Status: Ordered Vitamin D3 1,000 Intl_Units, Oral, Daily, 0 Refill(s) Start Date: 10/26/14 Status: Ordered Results Chemistry Most recent to 1 oldest [Reference Range]: Sodium Venous 138 mEq/L [136-144 mEq/L] (02/04/16 6:05 PM) Potassium Venous 3.8 mEq/L 1 [3.6-5.1 mEq/L] (02/04/16 6:05 PM) Calcium Ionized 1.22 mmol/L Venous [1.19-1.41 (02/04/16 6:05 PM) mmol/L] Total CO2 Venous 21 mEq/L [25-29 mEq/L] *LOW* (02/04/16 6:05 PM) HGB Venous NPT 11.2 gm/dL [12.0-16.0 gm/dL] *LOW* (02/04/16 6:05 PM) HCT Venous 33.0 % [37.0-47.0 %] *LOW* (02/04/16 6:05 PM) Glucose Venous 95 mg/dL [70-100 mg/dL] (02/04/16 6:05 PM) BUN Venous [4-20] 11 (02/04/16 6:05 PM) Creatinine Venous 0.6 mg/dL [0.4-1.0 mg/dL] (02/04/16 6:05 PM) Venous CL [99-109 104 mEq/L mEq/L] (02/04/16 6:05 PM) Anion Gap, Darron 13 [3-20] (02/04/16 6:05 PM) Troponin-POC Negative (02/04/16 6:18 PM) 1Result Comment: This test was performed [...] combined right and left heart Tonsillectomy Tympanostomy [place] tooth 1auto-populated from documented surgical case 2auto-populated [...]
--- OUTSIDE RECORDS SUMMARY | 2017-01-20 22:11 | XMS REPORT | Referral Summary ---
Author Author [facility] Organization [facility] Address Unknown Phone Unavailable Care Team Providers Care Mix Chemist Name Role Phone Imelda Martin Primary Care Physician [phone] Encounter VC Date(s): 04/22/16 - 04/23/16 [facility] [address] [place] [address] Discharge Diagnosis: Dyspnea Discharge Diagnosis: Dysphagia Discharge Diagnosis: Globus hystericus Discharge Disposition: 01-Home or Self Care Attending Physician: Chris Barone MD Admitting Physician: Chris Barone MD Vital Signs Most recent to 1 oldest [Reference Range]: Temperature Oral 36.9 degC [35.8-37.3 degC] (04/22/16 11:13 PM) Peripheral Pulse 88 bpm Rate [60-100 bpm] (04/23/16 12:45 AM) Respiratory Rate 16 br/min [14-20 br/min] (04/23/16 12:45 AM) Blood Pressure 106/64 mmHg [90-140/60-90 mmHg] (04/23/16 12:45 AM) SpO2 95 % (04/23/16 12:45 AM) Problem List Condition Effective Dates Status [...] HOURS APART, # 1 unknown unit, eRx: [id number], INHALE 1 PUFF BY INHALATION ROUTE 2 TIMES EVERY DAY IN THE MORNING AND EV... Start Date: 02/25/15 Status: Ordered Carafate 1 g/10 mL oral suspension 10 mL, Oral, QIDACHS, # 280 mL, 0 Refill(s), Pharmacy: [facility], 10 mL Oral QIDACHS [...] 1 Refill(s), Pharmacy : [facility] [id number] Start Date: 06/11/15 Status: Ordered promethazine 25 [...] combined right and left heart Tonsillectomy Tympanostomy [place] tooth 1auto-populated from documented surgical case 2auto-populated [...]
--- OUTSIDE RECORDS SUMMARY | 2017-01-20 22:11 | XMS REPORT | Referral Summary ---
Author Author [facility] Organization [facility] Address Unknown Phone Unavailable Care Team Providers Care Advisory Intern Name Role Phone Imelda Martin Primary Care Physician [phone] Encounter Date(s): 04/09/15 - 04/09/15 [facility] [address], [place] [address] Discharge Diagnosis: Otalgia of right ear Discharge Diagnosis: Temporal mandibular joint disorder Discharge Disposition: 01-Home or Self Care Attending [...] pain, # 300 mL, 0 Refill(s), Pharmacy: [facility] [id number], 10 mL Oral q6hr,PRN:as needed for pain Start Date: 12/24/14 Status: Ordered Advair Diskus 250 mcg-50 mcg inhalation powder See Instructions, INHALE 1 PUFF BY INHALATION ROUTE 2 TIMES EVERY DAY IN THE MORNING AND EVENING APPROXIMATELY 12 HOURS APART, # 1 unknown unit, eRx: [facility] [id number], INHALE 1 PUFF BY INHALATION ROUTE 2 TIMES EVERY DAY IN THE MORNING AND EV... Start Date: 02/25/15 Status: Ordered albuterol 2.5 mg/3 mL (0.083%) inhalation solution 3 mL, Inhalation, q6hr (scheduled), # 60 Each, 1 Refill(s), Pharmacy: [facility] [id number], 3 mL Inhalation q6hr (scheduled) Start Date: 02/13/15 Status: Ordered Atrovent 42 mcg/inh nasal spray 2 sprays, Nasal, TID, # 2 Each, 5 Refill(s), Pharmacy: [facility] 49053 Start Date: 06/11/15 Stop Date: 06/11/16 Status: Ordered Carafate 1 g oral tablet 1 g 1 tabs, Oral, QID, Dissolve in water and drink, # 40 tabs, 0 Refill(s) Start Date: 08/31/15 Status: Ordered cetirizine 10 mg oral tablet 10 mg 1 tabs, Oral, Daily, # 30 tabs, 5 Refill(s), Pharmacy: [facility] 48197, 1 tabs Oral Daily Start Date: 09/01/15 Status: Ordered levETIRAcetam 500 mg oral tablet See Instructions, TAKE 3 TABLETS BY MOUTH TWICE DAILY, # 180 tabs, 12 Refill(s) , eRx: [facility] [id number], TAKE 3 TABLETS BY MOUTH TWICE DAILY Start Date: 02/27/15 Status: Ordered Linzess 290 mcg oral capsule 1 caps, Oral, Daily, # 30 caps, 6 Refill(s), Pharmacy: [facility] 44803, 1 caps Oral Daily Start Date: 02/24/15 Status: Ordered loratadine 10 mg oral tablet 10 mg, Oral, Daily, # 30 tabs, 5 Refill(s), Pharmacy: [id number] , 10 mg Oral Daily Start Date: [...] # 1 Each, 1 Refill(s), Pharmacy : [facility] 79209 Start Date: 06/11/15 Status: Ordered traZODone Oral, [...] combined right and left heart Tonsillectomy Tympanostomy [place] tooth 1auto-populated from documented surgical case 2auto-populated from documented surgical case Social History Social History Type Response Smoking Status Former smoker; Type: Cigarettes; Tobacco use per day: 1 Pack1 1quit 05/2015 Assessment and Plan No data available for this section
--- OUTSIDE RECORDS SUMMARY | 2017-01-20 22:11 | XMS REPORT ---
Author Author [facility] Organization Unknown Address Unknown Phone Unavailable Care Team Providers Care Sole Seamer Name Role Phone UNASSIGNED DOCTOR , DOCTOR PP [phone] Reason For Visit Chief Complaint CHEST PAIN Social History Functional Status Vital Signs Results Chemistry from 12/23/2015 8:25 PMSODIUM 140 MMOL/L (136-145 MMOL/L) POTASSIUM 4.0 MMOL/L (3.5-5.1 MMOL/L) CHLORIDE 105 MMOL/L (98-107 MMOL/L) TCO2 26.9 MMOL/L (21.0-32.0 MMOL/L) *ANION GAP 8.1 MMOL/L (8.0-16.0 MMOL/L) BUN 7 MG/DL (7-18 MG/DL) CREATININE 0.65 MG/DL (0.55-1.02 MG/DL) *BUN/CREATININE RATIO 10.8 (9.1-17.0 ) GLUCOSE 95 MG/DL (65-99 MG/DL) *GFR EST NON AFR KAZAKH >90 ML/MIN *GFRA EST AFR AMER >90 ML/MIN CALCIUM 9.4 MG/DL (8.5-10.1 MG/DL) BILIRUBIN TOTAL 0.30 MG/DL (0.20-1.00 MG/DL) TOTAL PROTEIN 7.3 GM/DL (6.4-8.2 GM/DL) ALBUMIN 3.2 GM/DL L (3.4-5.0 GM/DL) *GLOBULIN 4.1 GM/DL H (2.3-3.5 GM/DL) *A/G RATIO 0.8 MG/DL L (1.5-2.2 MG/DL) ALK PHOS 99 U/L (46-116 U/L) ALT (SGPT) 14 U/L L (16-63 U/L) AST (SGOT) 10 U/L L (15-37 U/L) TROPONIN-I <0.017 NG/ML (0.000-0.056 NG/ML) Hematology from 12/23/2015 8:25 PMWBC 6.8 X10e3/UL (3.6-11.2 X10e3/UL) RBC 4.49 X10e6/UL (3.63-4.92 X10e6/UL) HEMOGLOBIN 11.0 G/DL (11.0-14.3 G/DL) HEMATOCRIT 35.2 % (31.2-41.9 %) *MCV 78.4 FL L (79.0-98.0 FL) *MCH 24.5 PG L (27.0-33.0 PG) *MCHC 31.2 G/DL L (32.0-36.0 G/DL) *RDW 18.9 % H (12.3-17.0 %) *RDWSD 52.1 H (37.1-47.8 ) PLATELET 242 X10e3/UL (159-386 X10e3/UL) *MPV 8.3 FL (7.4-10.4 FL) AUTOMATED DIFF PERFORMED SEGS 64.7 % *LYMPHOCYTES 25.0 % *MONOCYTES 7.8 % *EOSINOPHILS 2.0 % *BASOPHILS 0.5 % *ABSOLUTE NEUTROPHILS 4.40 X10e3/UL (1.80-7.80 X10e3/UL) *ABSOLUTE LYMPHOCYTES 1.70 X10e3/UL (1.00-3.00 X10e3/UL) *ABSOLUTE MONOCYTES 0.50 X10e3/UL (0.30-1.00 X10e3/UL) *ABSOLUTE EOSINOPHILS 0.10 X10e3/UL (0.00-0.50 X10e3/UL) *ABSOLUTE BASOPHILS 0.00 X10e3/UL (0.00-0.20 X10e3/UL) MICROCYTIC 2+ DX Radiology from 12/23/2015 8:16 PMCHEST 1 VIEW History: chest pain Priors: 04/28/2015 Findings: There is mild denies cardiomegaly. There is moderate hiatal hernia. No acute infiltrate, pneumothorax or pleural effusions identified. Impression: Unchanged cardiomegaly and moderate hiatal hernia. Electronically signed by: Pranay Shin MD Dictated: 12/24/2015 08:52 Problems Encounter Diagnosis No relevant problems exist. [...]
--- OUTSIDE RECORDS SUMMARY | 2017-01-20 22:11 | XMS REPORT | Referral Summary ---
Author Author [facility] Organization [facility] Address Unknown Phone Unavailable Care Team Providers Care Flute Teacher Name Role Phone Imelda Martin Primary Care Physician [phone] Encounter VC Date(s): 11/13/15 - 11/13/15 [facility] [address] [place] [address] Discharge Diagnosis: Acute UTI Discharge Disposition: 01-Home or Self Care Attending Physician: Jefferson Patricio MD Admitting Physician: Jefferson Patricio MD Vital Signs Most recent to 1 oldest [Reference Range]: Temperature Oral 36.7 degC [35.8-37.3 degC] (11/13/15 12:19 AM) Peripheral Pulse 80 bpm Rate [60-100 bpm] (11/13/15 12:19 AM) Heart Rate Monitored 90 bpm [60-100 bpm] (11/13/15 2:12 AM) Respiratory Rate 18 br/min [14-20 br/min] (11/13/15 2:12 AM) Blood Pressure 112/79 mmHg [90-140/60-90 mmHg] (11/13/15 2:12 AM) Mean Arterial 95 mmHg Pressure, Cuff (11/13/15 1:32 AM) SpO2 98 % (11/13/15 2:12 AM) Problem List Condition Effective Dates Status [...] pain, # 300 mL, 0 Refill(s), Pharmacy: [facility] [id number], 10 mL Oral q6hr,PRN:as needed for pain Start Date: 12/24/14 Status: Ordered Advair Diskus 250 mcg-50 mcg inhalation powder See Instructions, INHALE 1 PUFF BY INHALATION ROUTE 2 TIMES EVERY DAY IN THE MORNING AND EVENING APPROXIMATELY 12 HOURS APART, # 1 unknown unit, eRx: [facility] [id number], INHALE 1 PUFF BY INHALATION ROUTE 2 TIMES EVERY DAY IN THE MORNING AND EV... Start Date: 02/25/15 Status: Ordered Atrovent 42 mcg/inh nasal spray 2 sprays, Nasal, TID, # 2 Each, 5 Refill(s), Pharmacy: [facility] [id number] Start Date: 06/11/15 Stop Date: 06/11/16 Status: Ordered Carafate 1 g oral tablet 1 g 1 tabs, Oral, QID, Dissolve in water and drink, # 40 tabs, 0 Refill(s) Start Date: 08/31/15 Status: Ordered cetirizine 10 mg oral tablet 10 mg 1 tabs, Oral, Daily, # 30 tabs, 5 Refill(s), Pharmacy: [facility] 30002, 1 tabs Oral Daily Start Date: 09/01/15 Status: Ordered Keflex 500 mg oral capsule 500 mg 1 caps, Oral, QID, X 5 days, # 20 caps, 0 Refill(s) Start Date: 11/13/15 Stop Date: 11/18/15 Status: Ordered Linzess 290 mcg oral capsule 1 caps, Oral, Daily, # 30 caps, 6 Refill(s), Pharmacy: [facility] [address], 1 caps Oral Daily Start Date: 02/24/15 Status: Ordered loratadine 10 mg oral tablet 10 mg, Oral, Daily, # 30 tabs, 5 Refill(s), Pharmacy: [facility] [address] , 10 mg Oral Daily Start Date: [...] # 1 Each, 1 Refill(s), Pharmacy : [facility] [address] Start Date: 06/11/15 Status: Ordered Sudafed 12-Hour [...] 1 oldest [Reference Range]: UA Color Yellow (11/13/15 1:24 AM) UA Appear Sl Cloudy (11/13/15 1:24 AM) UA pH [5.0-8.0] 7.0 (11/13/15 1:24 AM) UA Leuk Est Trace [Negative] *ABN* (11/13/15 1:24 AM) UA Nitrite Negative [Negative] (11/13/15 1:24 AM) UA Protein Negative [Negative] (11/13/15 1:24 AM) UA Glucose Negative [Negative] (11/13/15 1:24 AM) UA Ketones Negative [Negative] (11/13/15 1:24 AM) UA Urobilinogen Negative [<1.0] (11/13/15 1:24 AM) UA Bili [Negative] Negative (11/13/15 1:24 AM) UA Blood [Negative] Negative (11/13/15 1:24 AM) UA Spec Grav 1.010 [1.003-1.030] (11/13/15 1:24 AM) Type Voided (11/13/15 1:24 AM) UA WBC [0-4] 5-10 *ABN* (11/13/15 1:24 AM) UA RBC [0-2] 0-2 (11/13/15 1:24 AM) Epithelial Cells 2-5 (11/13/15 1:24 AM) UA Bacteria Rare (11/13/15 1:24 AM) Crystals Amorphous (11/13/15 1:24 AM) UA Mucous Present (11/13/15 1:24 AM) Immunizations Vaccine Date Refusal Reason pneumococcal 23-polyvalent vaccine 11/18/14 Procedures Procedure Date Related Diagnosis Body Site Esophagogastroduodenoscopy Balloon Dilat1 02/14/15 Examination Under Anesthesia2 02/14/15 Adenoidectomy Bilateral tubal ligation Bronchoscope Cardiac catheterization, combined right and left heart Tonsillectomy Tympanostomy [place] tooth 1auto-populated from documented surgical case 2auto-populated from documented surgical case Social History Social History Type Response Smoking Status Never smoker Assessment and Plan No data available for this section
--- OUTSIDE RECORDS SUMMARY | 2017-01-20 22:11 | XMS REPORT | Referral Summary ---
Author Organization Unknown Address Unknown Phone Unavailable Care Team Providers Care Medical Anthropologist Name Role Phone Pardeep Poole Primary Care Physician [phone] Encounter VC Date(s): 11/29/14 - 11/29/14 [facility] [address] [place] [address] Discharge Diagnosis: Amenorrhea Discharge Disposition: Home or Self Care Attending Physician: Sarah Poole MD Admitting Physician: Sarah Poole MD Vital Signs Most recent to 1 oldest [Reference Range]: Temperature Oral 36.9 degC [35.8-37.3 degC] (11/29/14 11:22 AM) Peripheral Pulse 80 bpm Rate [60-100 bpm] (11/29/14 11:22 AM) Blood Pressure 120/68 mmHg [90-140/60-90 mmHg] (11/29/14 11:22 AM) Most recent to 1 oldest [Reference Range]: SpO2 98 % (11/29/14 11:22 AM) Problem List Condition Effective Dates Status [...] QIDACHS, # 1,200 mL, 6 Refill(s), Pharmacy: [facility] [address], 10 mL Oral QIDACHS Start Date: 10/07/14 [...] # 1 Each, 1 Refill(s), Pharmacy : [facility] [address] Special Instructions: 2-4 puffs every 4-6 hrs [...] Range]: U Beta hCG Ql Negative [Negative] (11/29/14 11:35 AM) Immunizations Vaccine Date Refusal Reason pneumococcal 23-polyvalent vaccine 11/18/14 Procedures Procedure Date Related Diagnosis Body Site Adenoidectomy Bilateral tubal ligation Bronchoscope Tonsillectomy Tympanostomy [place] tooth Social History Social History Type Response Smoking Status Current every day smoker; Type: Cigarettes; Tobacco use per day: 1-2 cigarettes a day Assessment and Plan No data available for this section
--- OUTSIDE RECORDS SUMMARY | 2017-01-20 22:11 | XMS REPORT | Continuity of Care Document ---
Author Author [facility] Organization [facility] Address Unknown Phone Unavailable Care Team Providers Care Hospitalist Nocturnist Physician Name Role Phone OTHER Primary Care Physician [phone] Insurance Providers [employer] Address [address] [place] [address] Email DENIED/NO PORTAL Payer [facility] Community Plan Policy Number [id number] Subscriber's Name [employer] Karissa Relationship 18 Self Effective Date 16 Expiration Date 16 Chief Complaint and Reason for Visit Chief Complaint Abdominal Pain Reason for Visit Abdominal pain Problems Active Problems Medical Problem Onset Date Status Chronic jaw pain Unknown Chronic Chronic knee instability Unknown Chronic Costochondritis Unknown Acute Malaise and fatigue Unknown Acute Mental impairment Unknown Chronic Viral syndrome Unknown Acute Past Problems Medical Problem Onset Date Abdominal pain Unknown Medications Current Home Medications Medication Dose Units Route Directions Days Qty Instructions Start Date Acetaminophen 500 Mg/5 Ml Liquid 10 Ml Oral Every 4 Hours as needed for Pain 02/26/16 Esomeprazole Magnesium 20 Mg Capsule. 20 Mg Oral Before Breakfast 02/26/16 Fluticasone/Salmeterol (Advair 500-50 Diskus) 1 Disk W/Dev Disk.w.dev 1 Puff Oral Inhalation Resp.tx Twice A Day 02/26/16 Hydrocodone/Acetaminophen ([place] 5-325 Tablet) 1 Each Tablet 1 Tab [...] Mg Tab.er.24 3 Mg Oral Daily 02/26/16 Sucralfate 1 Gm Tablet 1 G Oral Daily 02/26/16 Past Home Medications Medication Directions Ordered Status Paaxvltvarmvy456 M3 (Levetiracetam) 500 Mg Tablet, 500 Mg Oral Twice A Day Discontinued Reynold/Poly/Dexameth Ophth Oint 3 , 04/29/15 Discontinued Sulfamethoxazo1 Each (Sulfamethoxazole-Tmp Ds Tablet) 1 Each Tablet, 1 Tab Oral Twice A Day 04/29/15 Discontinued Social History Social History Problem Response Recorded Date/Time Onset Date Status Hx Substance Use No 02/26/2016 11:45am Not Applicable Not Applicable Hx Alcohol Use Y OCC 02/26/2016 11:45am Not Applicable Not Applicable Tobacco Usage none 04/12/2015 1:48pm Not Applicable Not Applicable Query Response Start Date Stop Date Smoking Status Former smoker Hospital Discharge Instructions No hospital discharge instructions. Plan of Care Discharge Date 02/26/16 2:18pm Disposition 01 DISCHARGED HOME, SELF-CARE Condition at Discharge Stable Instructions/Education Provided DI for Abdominal Pain-Adult Prescriptions See Medication Section Referrals OTHER Additional Instructions/Education Take the Zofran as needed for nausea and the [place] as needed for pain. You may try some Milk of Magnesia or some Magnesium Citrate over the counter to help get your bowels moving as well. The [place] can cause some trouble with constipation so use it sparingly. Follow up with your primary care provider early next week if this is not improving at all. Return to ER with any severe pain, fever, or vomiting. Care Plan and Goals Physician Care Plan Problem:Right upper quadrant abdominal pain Goal: Follow up with primary care provider Instructions: Take medications and follow care plan as discussed/written Functional Status No functional status results. Allergies, [...] 2014 04/28/15 11:25pm Influenza Vaccine Hx fall 201402/26/16 11:45am Vital Signs Acute Vital Signs Vital Response Date/Time Temperature (Fahrenheit) 98.0 deg F (96.8 - 99.1) 02/26/2016 2:18pm Temperature (Calculated Celsius) 36.52525 degrees C (36.0 - 37.3) 02/26/2016 2:18pm Pulse Rate (adult) 76 bpm (60 - 100) 02/26/2016 2:18pm Respiratory Rate 16 breaths/min (10 - 20) 02/26/2016 2:18pm O2 Sat by Pulse Oximetry 93 % (90 - 100) 02/26/2016 2:18pm Blood Pressure 108/67 mm Hg 02/26/2016 2:18pm Height (Feet) 5 feet 02/26/2016 10:50am Height (Inches) 1.00 inches 02/26/2016 10:50am Weight (Kilograms) 106.600 kg 02/26/2016 10:50am Body Mass Index (BMI) 44.0 02/26/2016 10:50am Results Laboratory Results Test Name Result Units [...] 11:02/26/2016 12:16pm Urine Turbidity CLEAR CLEAR 02/26/2016 11:2302/26/2016 12:16pm Urine Specific [place] <=1.005 L 1.015-1.025 02/26/2016 11:232015 12:16pm Urine pH 6.5 5.0-8.0 02/26/2016 11:2302/26/2016 12:16pm Urine Leukocyte Esterase TRACE A NEGATIVE 02/26/2016 11:2015 12:16pm Urine Nitrite NEGATIVE NEGATIVE 02/26/2016 11:02/26/2016 12: 16pm Urine Protein NEGATIVE NEGATIVE 02/26/2016 11:2302/26/2016 12: 16pm Urine Glucose (UA) NEGATIVE NEGATIVE 02/26/2016 11:02/26/2016 12 :16pm Urine Ketones NEGATIVE NEGATIVE 02/26/2016 11:23am 02/26/2016 12: 16pm Urine Urobilinogen 0.2 EU/DL NORMAL 02/26/2016 11:23am 02/26/2016 12: 16pm Urine Bilirubin NEGATIVE NEGATIVE 02/26/2016 11:23am 02/26/2016 12: 16pm Urine Blood TRACE-INTACT A NEGATIVE 02/26/2016 11:23am 02/26/2016 12: 16pm Urinalysis Comment MICROSCOPIC NOT IND. 02/26/2016 11:232015 12:16pm Name: TETO LAND Unit #: [id number] : 1990 Sex: F Admit Date: Loc / Svc: ED Discharge Date: DIAGNOSTIC IMAGING REPORT (Signed) Report #: [id number] [place], [place] Indication: ITS.REASON: RUQ abdominal pain starting last night with nausea PROCEDURE: US GALLBLADDER: Encounter: Initial Comparison: None Technique: Grayscale and color Doppler sonographic imaging of the right upper quadrant of the abdomen was performed. Findings: Hepatic parenchyma is echogenic and sonographically dense without evidence for focal mass. The gallbladder is normal. There is no wall thickening, pericholecystic fluid, sonographic Angeles's sign or cholelithiasis. Both the intra and extrahepatic biliary system are of normal caliber with the common duct measuring 2 mm in dimension. Pancreas is not well seen due to shadowing bowel gas. The right kidney is present without collecting system dilatation. The right kidney measures 10.9 cm in length. Impression: Normal gallbladder. Probable hepatic steatosis. . Procedures Procedure Status Date Provider(s) EMERGENCY DEPT VISIT Completed 12/26/15 Encounters Encounter Location Arrival/Admit Date Discharge/Depart Date Attending Provider Departed Emergency Room [facility] 02/26/16 10:45am 02/26/16 2: 18pm JODI RICHARDSON MD Departed Emergency Room [facility] 12/26/15 9:55pm 12/26/15 11: 05pm INO GARRISON MD Recent Diagnosis
--- OUTSIDE RECORDS SUMMARY | 2017-01-20 22:11 | XMS REPORT | Referral Summary ---
Author Author [facility] Organization [facility] Address Unknown Phone Unavailable Care Team Providers Care English Instructor Name Role Phone [facility] Primary Care Physician Unavailable Encounter [facility] [id number] Date(s): 12/10/15 - 12/10/15 [facility] [address] [place] [address] Discharge Diagnosis: Chronic abdominal pain Discharge Disposition: 01-Home or Self Care Attending Physician: Milton Magaña MD Admitting Physician: Milton Magaña MD Referring Physician: Self Referred, X Vital Signs Most recent to 1 oldest [Reference Range]: Temperature Oral 36.6 degC [35.8-37.3 degC] (12/10/15 12:39 AM) Peripheral Pulse 82 bpm Rate [60-100 bpm] (12/10/15 12:39 AM) Respiratory Rate 18 br/min [14-20 br/min] (12/10/15 12:39 AM) Blood Pressure 134/84 mmHg [90-140/60-90 mmHg] (12/10/15 12:39 AM) SpO2 97 % (12/10/15 12:39 AM) Problem List Condition Effective Dates Status [...] pain, # 300 mL, 0 Refill(s), Pharmacy: [facility] [id number], 10 mL Oral q6hr,PRN:as needed for pain Start Date: 12/24/14 Status: Ordered Advair Diskus 250 mcg-50 mcg inhalation powder See Instructions, INHALE 1 PUFF BY INHALATION ROUTE 2 TIMES EVERY DAY IN THE MORNING AND EVENING APPROXIMATELY 12 HOURS APART, # 1 unknown unit, eRx: [facility] [id number], INHALE 1 PUFF BY INHALATION ROUTE 2 TIMES EVERY DAY IN THE MORNING AND EV... Start Date: 02/25/15 Status: Ordered Atrovent 42 mcg/inh nasal spray 2 sprays, Nasal, TID, # 2 Each, 5 Refill(s), Pharmacy: [facility] [id number] Start Date: 06/11/15 Stop Date: 06/11/16 Status: Ordered Carafate 1 g oral tablet 1 g 1 tabs, Oral, QID, Dissolve in water and drink, # 40 tabs, 0 Refill(s) Start Date: 08/31/15 Status: Ordered cetirizine 10 mg oral tablet 10 mg 1 tabs, Oral, Daily, # 30 tabs, 5 Refill(s), Pharmacy: [facility] [id number], 1 tabs Oral Daily Start Date: 09/01/15 [...] Daily, # 30 caps, 6 Refill(s), Pharmacy: [facility] 06153, 1 caps Oral Daily Start Date: 02/24/15 Status: Ordered loratadine 10 mg oral tablet 10 mg, Oral, Daily, # 30 tabs, 5 Refill(s), Pharmacy: [facility] [id number] , 10 mg Oral Daily Start Date: [...] # 1 Each, 1 Refill(s), Pharmacy : [facility] 68063 Start Date: 06/11/15 Status: Ordered traZODone Oral, [...] combined right and left heart Tonsillectomy Tympanostomy [place] tooth 1auto-populated from documented surgical case 2auto-populated from documented surgical case Social History Social History Type Response Smoking Status Never smoker Assessment and Plan No data available for this section
--- OUTSIDE RECORDS SUMMARY | 2017-01-20 22:11 | XMS REPORT | Referral Summary ---
Author Author [facility] Organization [facility] Address Unknown Phone Unavailable Care Team Providers Care Wire Inserter Name Role Phone Imelda Martin Primary Care Physician [phone] Encounter [facility] [id number] Date(s): 10/08/16 - 10/08/16 [facility] [address] [place] [address] Discharge Diagnosis: Contusion, hand Discharge Disposition: 01-Home or Self Care Attending Physician: Vance Lei MD Admitting Physician: Vance Lei MD Vital Signs Most recent to 1 oldest [Reference Range]: Temperature Oral 36.8 degC [35.8-37.3 degC] (10/08/16 12:09 PM) Peripheral Pulse 114 bpm Rate [60-100 bpm] *HI* (10/08/16 12:09 PM) Respiratory Rate 20 br/min [14-20 br/min] (10/08/16 12:09 PM) Blood Pressure 106/71 mmHg [90-140/60-90 mmHg] (10/08/16 12:09 PM) SpO2 95 % (10/08/16 12:09 PM) Problem List Condition Effective Dates Status [...] QIDACHS, # 280 mL, 0 Refill(s), Pharmacy: [facility], 10 mL [...] BID, # 60 tabs, 0 Refill(s), Pharmacy: [facility] [address], 1 tabs Oral BID Start Date: 07/12/16 Status: Ordered Keppra 500 mg oral tablet 500 mg 1 tabs, Oral, BID, # 60 tabs, 0 Refill(s) Start Date: 04/21/16 Stop Date: 05/21/16 Status: Ordered Naprosyn 250 mg oral tablet [...] combined right and left heart Tonsillectomy Tympanostomy [place] tooth 1auto-populated from documented surgical case 2auto-populated from documented surgical case 3auto-populated from documented surgical case 4auto-populated from documented surgical case 5auto-populated from documented surgical case Social History Social History Type Response Smoking Status Never smoker Assessment and Plan No data available for this section
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
--- OUTSIDE RECORDS SUMMARY | 2017-01-20 22:11 | XMS REPORT | Referral Summary ---
Author Author [facility] Organization [facility] Address Unknown Phone Unavailable Care Team Providers Care Lens Blank Gauger Name Role Phone Imelda Martin Primary Care Physician [phone] Encounter [facility] Date(s): 09/14/15 - 09/14/15 [facility] [address] [place], [place] [address] Discharge Diagnosis: Chest pain Discharge Disposition: 01-Home or Self Care Attending Physician: Chris Harris MD Admitting Physician: Chris Harris MD Vital Signs Most recent to 1 oldest [Reference Range]: Temperature Oral 36.9 degC [35.8-37.3 degC] (09/14/15 7:07 AM) Peripheral Pulse 99 bpm Rate [60-100 bpm] (09/14/15 7:07 AM) Heart Rate Monitored 93 bpm [60-100 bpm] (09/14/15 2:09 PM) Respiratory Rate 20 br/min [14-20 br/min] (09/14/15 2:09 PM) Blood Pressure 101/87 mmHg [90-140/60-90 mmHg] (09/14/15 2:09 PM) Mean Arterial 101 mmHg Pressure, Cuff (09/14/15 12:30 PM) SpO2 96 % (09/14/15 2:09 PM) Problem List Condition Effective Dates Status [...] pain, # 300 mL, 0 Refill(s), Pharmacy: [facility] [id number], 10 mL Oral q6hr,PRN:as needed for pain Start Date: 12/24/14 Status: Ordered Advair Diskus 250 mcg-50 mcg inhalation powder See Instructions, INHALE 1 PUFF BY INHALATION ROUTE 2 TIMES EVERY DAY IN THE MORNING AND EVENING APPROXIMATELY 12 HOURS APART, # 1 unknown unit, eRx: [facility] [id number], INHALE 1 PUFF BY INHALATION ROUTE 2 TIMES EVERY DAY IN THE MORNING AND EV... Start Date: 02/25/15 Status: Ordered albuterol 2.5 mg/3 mL (0.083%) inhalation solution 3 mL, Inhalation, q6hr (scheduled), # 60 Each, 1 Refill(s), Pharmacy: [facility] 35986, 3 mL Inhalation q6hr (scheduled) Start Date: 02/13/15 Status: Ordered Atrovent 42 mcg/inh nasal spray 2 sprays, Nasal, TID, # 2 Each, 5 Refill(s), Pharmacy: [facility] [id number] Start Date: 06/11/15 Stop Date: 06/11/16 Status: Ordered Carafate 1 g oral tablet 1 g 1 tabs, Oral, QID, Dissolve in water and drink, # 40 tabs, 0 Refill(s) Start Date: 08/31/15 Status: Ordered cetirizine 10 mg oral tablet 10 mg 1 tabs, Oral, Daily, # 30 tabs, 5 Refill(s), Pharmacy: [facility] 26472, 1 tabs Oral Daily Start Date: 09/01/15 Status: Ordered levETIRAcetam 500 mg oral tablet See Instructions, TAKE 3 TABLETS BY MOUTH TWICE DAILY, # 180 tabs, 12 Refill(s) , eRx: [facility] [id number], TAKE 3 TABLETS BY MOUTH TWICE DAILY Start Date: 02/27/15 Status: Ordered Linzess 290 mcg oral capsule 1 caps, Oral, Daily, # 30 caps, 6 Refill(s), Pharmacy: [facility] 24088, 1 caps Oral Daily Start Date: 02/24/15 Status: Ordered loratadine 10 mg oral tablet 10 mg, Oral, Daily, # 30 tabs, 5 Refill(s), Pharmacy: [facility] [id number] , 10 mg Oral Daily Start Date: [...] # 1 Each, 1 Refill(s), Pharmacy : [facility] 40177 Start Date: 06/11/15 Status: Ordered traZODone Oral, 0 Refill(s) Start Date: 04/05/15 Status: Ordered Viibryd Oral, Daily, 0 Refill(s) Start Date: 04/05/15 Status: Ordered Vitamin D3 1,000 Intl_Units, Oral, Daily, 0 Refill(s) Start Date: 10/26/14 Status: Ordered Zofran ODT 4 mg oral tablet, disintegrating 1 tabs, Oral, TID, as needed for nausea/vomiting, # 10 tabs, 0 Refill(s) Start Date: 11/21/14 Status: Ordered Results Coagulation Most recent to 1 oldest [Reference Range]: D-Dimer [0-600 965 ng{FEU}/mL 1 ng{FEU}/mL] *HI* (09/14/15 8:54 AM) 1Result Comment: A D Dimer result of <500 ng/mL FEU has a negative predictive value of approximately 100% for the exclusion of DVT and acute PE. Chemistry Most recent to 1 oldest [Reference Range]: Sodium Lvl [136-144 135 mEq/L mEq/L] *LOW* (09/14/15 8:54 AM) Potassium Lvl 4.1 mEq/L [3.6-5.1 mEq/L] (09/14/15 8:54 AM) Chloride [99-109 103 mEq/L mEq/L] (09/14/15 8:54 AM) CO2 [22-32 mEq/L] 24 mEq/L (09/14/15 8:54 AM) AGAP [3-20] 8 (09/14/15 8:54 AM) BUN [4-20 mg/dL] 11 mg/dL (09/14/15 8:54 AM) Glucose Lvl [70-100 108 mg/dL mg/dL] *HI* (09/14/15 8:54 AM) Creatinine Lvl 0.64 mg/dL [0.44-1.03 mg/dL] (09/14/15 8:54 AM) eGFR [>60] >60 1 (09/14/15 8:54 AM) Calcium Lvl 9.3 mg/dL [8.6-10.0 mg/dL] (09/14/15 8:54 AM) Screen, Negative Urine NPT (09/14/15 8:24 AM) 1Result Comment: Multiply eGFR results by 1.21 for race. Immunizations Vaccine Date Refusal Reason pneumococcal 23-polyvalent vaccine 11/18/14 Procedures Procedure Date Related Diagnosis Body Site Esophagogastroduodenoscopy Balloon Dilat1 02/14/15 Examination Under Anesthesia2 02/14/15 Adenoidectomy Bilateral tubal ligation Bronchoscope Cardiac catheterization, combined right and left heart Tonsillectomy Tympanostomy [place] tooth 1auto-populated from documented surgical case 2auto-populated from documented surgical case Social History Social History Type Response Smoking Status Former smoker; Type: Cigarettes; Tobacco use per day: 1 Pack1 1quit 05/2015 Assessment and Plan No data available for this section
--- OUTSIDE RECORDS SUMMARY | 2017-01-20 22:11 | XMS REPORT | Referral Summary ---
Author Author [facility] Organization [facility] Address Unknown Phone Unavailable Encounter [facility] [id number] Date(s): 02/12/16 - 02/12/16 [facility] [address] [place] [address] [place] Discharge Diagnosis: Frequent UTI Discharge Diagnosis: Nausea with vomiting Discharge Diagnosis: Abdominal pain Discharge Disposition: 01-Home or Self Care Attending Physician: Sara Chiu APRN Admitting Physician: Sara Chiu APRN Vital Signs Most recent to 1 oldest [Reference Range]: Temperature Oral 36.9 degC [35.8-37.3 degC] (02/12/16 12:52 PM) Peripheral Pulse 86 bpm Rate [60-100 bpm] (02/12/16 2:20 PM) Respiratory Rate 18 br/min [14-20 br/min] (02/12/16 2:20 PM) Systolic Blood 98 mmHg Pressure [90-140 (02/12/16 2:20 PM) mmHg] Diastolic Blood 69 mmHg Pressure [60-90 (02/12/16 2:20 PM) mmHg] SpO2 95 % (02/12/16 2:20 PM) Problem List Condition Effective Dates Status [...] pain, # 300 mL, 0 Refill(s), Pharmacy: [facility] 57802, 10 mL Oral q6hr,PRN:as needed for pain [...] HOURS APART, # 1 unknown unit, eRx: [facility] [id number], INHALE 1 PUFF BY INHALATION ROUTE 2 [...] Daily, # 30 tabs, 5 Refill(s), Pharmacy: [facility] 70012, 1 tabs Oral Daily Start Date: 09/01/15 [...] Daily, # 1 Each, 5 Refill(s), Pharmacy: [facility] [address] Start Date: 12/12/15 Status: Ordered ibuprofen 800 mg oral tablet 800 mg 1 tabs, Oral, TID, Pain, # 15 tabs, 0 Refill(s) Start Date: 12/07/15 Status: Ordered loratadine 0 Refill(s) Start Date: 01/23/16 Status: Ordered loratadine 10 mg oral tablet 10 mg, Oral, Daily, # 30 tabs, 5 Refill(s), Pharmacy: [facility] [id number] , 10 mg Oral Daily Start Date: 01/14/15 Status: Ordered Macrobid 100 mg oral capsule 100 mg 1 caps, Oral, BID, X 10 days, # 20 caps, 0 Refill(s) Start Date: 02/12/16 Stop Date: 02/22/16 Status: Ordered meloxicam 15 mg oral tablet 15 mg 1 tabs, Oral, Daily, # 30 tabs, 0 Refill(s) Start Date: 12/12/15 Status: Ordered Mobic 7.5 mg oral tablet 7.5 mg 1 tabs, Oral, Daily, # 7 tabs, 0 Refill(s), Pharmacy: [facility], 1 tabs Oral Daily,x7 days Start Date: 01/20/16 Stop Date: 01/27/16 Status: Ordered Naprosyn 500 mg oral tablet 500 mg 1 tabs, Oral, BID, # 10 tabs, 0 Refill(s) Start Date: 01/17/16 Stop Date: 01/22/16 Status: Ordered olopatadine 0.1% ophthalmic solution See Instructions, 1 drop to affected eye daily prn, # 5 mL, 5 Refill(s), Pharmacy: [facility] Start Date: 02/02/16 Status: [...] # 1 Each, 1 Refill(s), Pharmacy : [facility] [id number] Start Date: 06/11/15 Status: Ordered Robitussin DM To Go 20 mg-200 mg/10 mL oral liquid 10 mL, Oral, q4hr, as needed for cough, # 100 mL, 0 Refill(s), Pharmacy: [facility] 59477 Start Date: 12/12/15 Status: Ordered Singulair qPM, 0 Refill(s) Start Date: 01/23/16 Status: Ordered Vitamin D3 1,000 Intl_Units, Oral, Daily, 0 Refill(s) Start Date: 10/26/14 Status: Ordered Zofran ODT 4 mg oral tablet, disintegrating 4 mg 1 tabs, Oral, q4hr, Nausea or Vomiting | as needed for nausea/vomiting, # 10 tabs, 0 Refill(s) Start Date: 02/12/16 Status: Ordered Results Hematology Most recent to 1 oldest [Reference Range]: WBC [4.8-10.8 6.9 10*3/uL 10*3/uL] (02/12/16 1:07 PM) RBC [4.00-5.20] 4.48 (02/12/16 1:07 PM) Hgb [12.0-16.0 10.8 gm/dL gm/dL] *LOW* (02/12/16 1:07 PM) Hct [37.0-47.0 %] 36.4 % *LOW* (02/12/16 1:07 PM) MCV [82.0-99.0 fL] 81.3 fL *LOW* (02/12/16 1:07 PM) MCH [27.0-32.0 pg] 24.1 pg *LOW* (02/12/16 1:07 PM) MCHC [32.0-36.0 29.7 gm/dL gm/dL] *LOW* (02/12/16 1:07 PM) RDW [11.5-14.5 %] 17.4 % *HI* (02/12/16 1:07 PM) Platelet [150-400 198 10*3/uL 10*3/uL] (02/12/16 1:07 PM) MPV [9.4-12.4 fL] 9.5 fL (02/12/16 1:07 PM) Immature 0.1 % Granulocytes (02/12/16:07 PM) [0.0-1.0 %] Neutrophils [51-75 75 % %] (02/12/16 1:07 PM) Lymphocytes [20-46 19 % %] *LOW* (02/12/16 1:07 PM) Monocytes [4-11 %] 6 % (02/12/16 1:07 PM) Eosinophils [0-4 %] 1 % (02/12/16 1:07 PM) Basophils [0-2 %] 0 % (02/12/16 1:07 PM) Neutro Absolute 5.14 10*3 [1.90-7.00 10*3] (02/12/16 1:07 PM) Lymph Absolute 1.27 10*3 [0.80-3.30 10*3] (02/12/16 1:07 PM) [place] Absolute 0.40 10*3 [0.30-1.00 10*3] (02/12/16 1:07 PM) Eos Absolute 0.04 10*3 [0.00-0.50 10*3] (02/12/16 1:07 PM) Baso Absolute 0.02 10*3 [0.00-0.20 10*3] (02/12/16 1:07 PM) Nucleated RBC 0.0 /100 WBC Automated [0 /100 (02/12/16 1:07 PM) WBC] Chemistry Most recent to 1 oldest [Reference Range]: Sodium Lvl [136-144 139 mEq/L mEq/L] (02/12/16 1:07 PM) Potassium Lvl 3.8 mEq/L [3.6-5.1 mEq/L] (02/12/16 1:07 PM) Chloride [99-109 106 mEq/L mEq/L] (02/12/16 1:07 PM) CO2 [22-32 mEq/L] 24 mEq/L (02/12/16 1:07 PM) AGAP [3-20] 9 (02/12/16 1:07 PM) BUN [4-20 mg/dL] 12 mg/dL (02/12/16 1:07 PM) Glucose Lvl [70-100 90 mg/dL mg/dL] (02/12/16 1:07 PM) Creatinine Lvl 0.59 mg/dL [0.44-1.03 mg/dL] (02/12/16 1:07 PM) eGFR [>60] >60 1 (02/12/16 1:07 PM) Calcium Lvl 8.7 mg/dL [8.6-10.0 mg/dL] (02/12/16 1:07 PM) Lipase Lvl [8-48 22 U/L U/L] (02/12/16 1:07 PM) U Beta hCG Ql Neg (02/12/16 1:12 PM) 1Result Comment: Multiply eGFR results by 1.21 for race. Urinalysis Most recent to 1 oldest [Reference Range]: UA Color Yellow (02/12/16 1:07 PM) UA Appear Sl Cloudy (02/12/16 1:07 PM) UA pH [5.0-8.0] 6.0 (02/12/16 1:07 PM) UA Leuk Est Trace [Negative] *ABN* (02/12/16 1:07 PM) UA Nitrite Negative [Negative] (02/12/16 1:07 PM) UA Protein Negative [Negative] (02/12/16 1:07 PM) UA Glucose Negative [Negative] (02/12/16 1:07 PM) UA Ketones Negative [Negative] (02/12/16 1:07 PM) UA Urobilinogen 2.0 mg/dL [<1.0 mg/dL] *ABN* (02/12/16 1:07 PM) UA Bili [Negative] Negative (02/12/16 1:07 PM) UA Blood [Negative] Pos 1+ *ABN* (02/12/16 1:07 PM) UA Spec Grav 1.020 [1.003-1.030] (02/12/16 1:07 PM) Type Clean Catch (02/12/16 1:07 PM) UA WBC [0-4] 5-10 *ABN* (02/12/16 1:07 PM) UA RBC [0-2] 5-10 *ABN* (02/12/16 1:07 PM) Epithelial Cells 0-2 (02/12/16 1:07 PM) UA Bacteria Rare (02/12/16 1:07 PM) Crystals Ca Ox (02/12/16 1:07 PM) UA Mucous Present (02/12/16 1:07 PM) Immunizations Vaccine Date Refusal Reason pneumococcal 23-polyvalent vaccine 11/18/14 Procedures Procedure Date Related Diagnosis Body Site Esophagogastroduodenoscopy Foreign Body 01/06/16 Removal1 Procedure with Anesthesia2 01/06/16 Esophagogastroduodenoscopy Balloon Dilat3 02/14/15 Examination Under Anesthesia4 02/14/15 Adenoidectomy Bilateral tubal ligation Bronchoscope Cardiac catheterization, combined right and left heart Tonsillectomy Tympanostomy [place] tooth 1auto-populated from documented surgical case 2auto-populated [...]
--- OUTSIDE RECORDS SUMMARY | 2017-01-20 22:12 | XMS REPORT | Referral Summary ---
Author Author [facility] Organization [facility] Address Unknown Phone Unavailable Care Team Providers Care Loan Teller Name Role Phone [facility] Primary Care Physician Unavailable Encounter [facility] [id number] Date(s): 03/19/16 - 03/19/16 [facility] [address], [place] [address] Discharge Diagnosis: Acute UTI Discharge Diagnosis: Abdominal pain Discharge Disposition: 01-Home or Self Care Attending Physician: Presley Frias MD Admitting Physician: Presley Frias MD Vital Signs Most recent to 1 oldest [Reference Range]: Temperature Oral 36.6 degC [35.8-37.3 degC] (03/19/16 9:24 PM) Peripheral Pulse 110 bpm Rate [60-100 bpm] *HI* (03/19/16 9:24 PM) Heart Rate Monitored 81 bpm [60-100 bpm] (03/19/16 11:18 PM) Respiratory Rate 18 br/min [14-20 br/min] (03/19/16 11:18 PM) Blood Pressure 98/72 mmHg [90-140/60-90 mmHg] (03/19/16 11:18 PM) SpO2 96 % (03/19/16 11:18 PM) Problem List Condition Effective Dates Status [...] HOURS APART, # 1 unknown unit, eRx: [facility] [id number], INHALE 1 PUFF BY INHALATION ROUTE 2 TIMES EVERY DAY IN THE MORNING AND EV... Start Date: 02/25/15 Status: Ordered Bactrim DS 800 mg-160 mg oral tablet 1 tabs, Oral, BID, X 14 days, # 28 tabs, 0 Refill(s) Start Date: 03/19/16 Stop Date: 04/02/16 Status: Ordered Carafate 1 g/10 mL oral suspension 10 mL, Oral, QIDACHS, # 280 mL, 0 Refill(s), Pharmacy: [facility], 10 mL Oral QIDACHS Start Date: 02/15/16 Status: Ordered cetirizine 10 mg oral tablet 10 mg 1 tabs, Oral, Daily, # 30 tabs, 5 Refill(s), Pharmacy: [facility] 05498, 1 tabs Oral Daily Start Date: 09/01/15 [...] Pharmacy : [facility] [address] Start Date: 06/11/15 Status: Ordered promethazine 25 [...] to 1 oldest [Reference Range]: Sodium Venous 140 mEq/L [136-144 mEq/L] (03/19/16 10:17 PM) Potassium Venous 3.9 mEq/L 1 [3.6-5.1 mEq/L] (03/19/16 10:17 PM) Calcium Ionized 1.18 mmol/L Venous [1.19-1.41 *LOW* mmol/L] (03/19/16 10:17 PM) Total CO2 Venous 22 mEq/L [25-29 mEq/L] *LOW* (03/19/16 10:17 PM) HGB Venous NPT 11.6 gm/dL [12.0-16.0 gm/dL] *LOW* (03/19/16 10:17 PM) HCT Venous 34.0 % [37.0-47.0 %] *LOW* (03/19/16 10:17 PM) Glucose Venous 96 mg/dL [70-100 mg/dL] (03/19/16 10:17 PM) BUN Venous [4-20] 4 (03/19/16 10:17 PM) Creatinine Venous 0.7 mg/dL [0.4-1.0 mg/dL] (03/19/16 10:17 PM) Venous CL [99-109 109 mEq/L mEq/L] (03/19/16 10:17 PM) Anion Gap, Darron 9 [3-20] (03/19/16 10:17 PM) U Beta hCG Ql Neg (03/19/16 10:59 PM) 1Result Comment: This test was performed on a whole blood specimen. The presence or absence of hemolysis cannot be assessed. Hemolysis can falsely elevate potassium levels. Normals are for venous specimens only. Urinalysis Most recent to 1 oldest [Reference Range]: UA Color Yellow (03/19/16 10:29 PM) UA Appear Sl Cloudy (03/19/16 10:29 PM) UA pH [5.0-8.0] 5.0 (03/19/16 10:29 PM) UA Leuk Est Pos 1+ [Negative] *ABN* (03/19/16 10:29 PM) UA Nitrite Negative [Negative] (03/19/16 10:29 PM) UA Protein Negative [Negative] (03/19/16 10:29 PM) UA Glucose Negative [Negative] (03/19/16 10:29 PM) UA Ketones Negative [Negative] (03/19/16 10:29 PM) UA Urobilinogen Negative [<1.0] (03/19/16 10:29 PM) UA Bili [Negative] Negative (03/19/16 10:29 PM) UA Blood [Negative] Pos 3+ *ABN* (03/19/16 10:29 PM) UA Spec Grav 1.020 [1.003-1.030] (03/19/16 10:29 PM) Type Clean Catch (03/19/16 10:29 PM) UA WBC [0-4] 10-20 *ABN* (03/19/16 10:29 PM) UA RBC [0-2 /HPF] >50 /HPF *ABN* (03/19/16 10:29 PM) Epithelial Cells 20-50 (03/19/16 10:29 PM) UA Bacteria Numerous *ABN* (03/19/16 10:29 PM) Crystals Amorphous (03/19/16 10:29 PM) UA Mucous Present (03/19/16 10:29 PM) Immunizations Vaccine Date Refusal Reason pneumococcal 23-polyvalent vaccine 11/18/14 Procedures Procedure Date Related Diagnosis Body Site Esophagogastroduodenoscopy Foreign Body 01/06/16 Removal1 Procedure with Anesthesia2 01/06/16 Esophagogastroduodenoscopy Balloon Dilat3 02/14/15 Examination Under Anesthesia4 02/14/15 Adenoidectomy Bilateral tubal ligation Bronchoscope Cardiac catheterization, combined right and left heart Tonsillectomy Tympanostomy [place] tooth 1auto-populated from documented surgical case 2auto-populated [...]
--- OUTSIDE RECORDS SUMMARY | 2017-01-20 22:12 | XMS REPORT | Referral Summary ---
Author Author Via [facility] Organization Via [facility] Address Unknown Phone Unavailable Care Team Providers Care Digital Production Operator Name Role Phone Imelda Martin Primary Care Physician [phone] Encounter VC Date(s): 11/13/16 - 11/14/[address] [facility] [address], [place] [address] Discharge Diagnosis: Knee pain Discharge Disposition: 01-Home or Self Care Attending Physician: Ari Neville DO Admitting Physician: Ari Neville DO Vital Signs Most recent to 1 oldest [Reference Range]: Temperature Oral 36.8 degC [35.8-37.3 degC] (11/13/16 9:53 PM) Peripheral Pulse 91 bpm Rate [60-100 bpm] (11/13/16 9:53 PM) Respiratory Rate 18 br/min [14-20 br/min] (11/13/16 9:53 PM) Blood Pressure 111/82 mmHg [90-140/60-90 mmHg] (11/13/16 9:53 PM) SpO2 98 % (11/13/16 9:53 PM) Problem List Condition Effective Dates Status [...] QIDACHS, # 280 mL, 0 Refill(s), Pharmacy: [facility], 10 mL Oral QIDACHS Start Date: 02/15/16 Status: Ordered cetirizine 10 mg oral tablet 10 mg 1 tabs, Oral, Daily, # 30 tabs, 6 Refill(s), Pharmacy: [facility], 1 tabs Oral Daily Start Date: 11/12/16 Status: Ordered Claritin 10 mg, Oral, Daily, [...] 0 Refill(s), Pharmacy: [facility] 75073, 1 tabs Oral BID Start Date: 07/12/16 [...] combined right and left heart Tonsillectomy Tympanostomy [place] tooth 1auto-populated from documented surgical case 2auto-populated from documented surgical case 3auto-populated from documented surgical case 4auto-populated from documented surgical case 5auto-populated from documented surgical case Social History Social History Type Response Smoking Status Current every day smoker; Type: Cigarettes; Tobacco use per day: 1 Pack Assessment and Plan No data available for this section
--- OUTSIDE RECORDS SUMMARY | 2017-01-20 22:12 | XMS REPORT | Referral Summary ---
Author Author Via [facility] Organization [facility] Address Unknown Phone Unavailable Care Team Providers Care Data Mining Analyst Name Role Phone Imelda Martin Primary Care Physician [phone] Encounter VC Date(s): 02/25/15 - 02/26/15 Via [facility] [address] [address] Final: DIAPHRAGMATIC HERNIA WITHOUT MENTION OF OBSTRUCTION OR GANGRENE Discharge Diagnosis: Abdominal pain Discharge Disposition: 01-Home or Self Care Attending Physician: Quinton Mixon MD Admitting Physician: Quinton Mixon MD Referring Physician: Self Referred, X Vital Signs Most recent to 1 oldest [Reference Range]: Temperature Oral 36.6 degC [35.8-37.3 degC] (02/25/15 7:30 PM) Peripheral Pulse 88 bpm Rate [60-100 bpm] (02/25/15 7:30 PM) Respiratory Rate 18 br/min [14-20 br/min] (02/25/15 7:30 PM) Blood Pressure 112/90 mmHg [90-140/60-90 mmHg] (02/25/15 7:30 PM) SpO2 98 % (02/25/15 7:30 PM) Problem List Condition Effective Dates Status [...] pain, # 300 mL, 0 Refill(s), Pharmacy: [facility] 64070, 10 mL Oral q6hr,PRN:as needed for pain Start Date: 12/24/14 Status: Ordered Advair Diskus 250 mcg-50 mcg inhalation powder See Instructions, INHALE 1 PUFF BY INHALATION ROUTE 2 TIMES EVERY DAY IN THE MORNING AND EVENING APPROXIMATELY 12 HOURS APART, # 1 unknown unit, eRx: [facility] [id number], INHALE 1 PUFF BY INHALATION ROUTE 2 TIMES EVERY DAY IN THE MORNING AND EV... Start Date: 02/25/15 Status: Ordered albuterol 2.5 mg/3 mL (0.083%) inhalation solution 3 mL, Inhalation, q6hr (scheduled), # 60 Each, 1 Refill(s), Pharmacy: [facility] 87500, 3 mL Inhalation q6hr (scheduled) Start Date: 02/13/15 Status: Ordered Atrovent 42 mcg/inh nasal spray 2 sprays, Nasal, TID, # 2 Each, 5 Refill(s), Pharmacy: [facility] 34916 Start Date: 06/11/15 Stop Date: 06/11/16 Status: Ordered Carafate 1 g oral tablet 1 g 1 tabs, Oral, QID, Dissolve in water and drink, # 40 tabs, 0 Refill(s) Start Date: 08/31/15 Status: Ordered cetirizine 10 mg oral tablet 10 mg 1 tabs, Oral, Daily, # 30 tabs, 5 Refill(s), Pharmacy: [facility] 09303, 1 tabs Oral Daily Start Date: 09/01/15 Status: Ordered levETIRAcetam 500 mg oral tablet See Instructions, TAKE 3 TABLETS BY MOUTH TWICE DAILY, # 180 tabs, 12 Refill(s) , eRx: [facility] [id number], TAKE 3 TABLETS BY MOUTH TWICE DAILY Start Date: 02/27/15 Status: Ordered Linzess 290 mcg oral capsule 1 caps, Oral, Daily, # 30 caps, 6 Refill(s), [facility], 1 caps Oral Daily Start Date: 02/24/15 Status: Ordered loratadine 10 mg oral tablet 10 mg, Oral, Daily, # 30 tabs, 5 Refill(s), Pharmacy: [facility] , 10 mg Oral Daily Start Date: [...] # 1 Each, 1 Refill(s), Pharmacy : [facility] 69817 Start Date: 06/11/15 Status: Ordered traZODone Oral, [...] [Reference Range]: WBC [4.8-10.8 8.2 10*3/uL 10*3/uL] (02/26/15 12:35 AM) RBC [4.00-5.20 4.75 10*6/uL 10*6/uL] (02/26/15 12:35 AM) Hgb [12.0-16.0 13.2 gm/dL gm/dL] (02/26/1535 AM) Hct [37.0-47.0 %] 41.2 % (02/26/1535 AM) MCV [82.0-99.0 fL] 86.7 fL (02/26/15 AM) MCH [27.0-32.0 pg] 27.8 pg (02/26/1535 AM) MCHC [32.0-36.0 32.0 gm/dL gm/dL] (02/26/15:35 AM) RDW [11.5-14.5 %] 16.3 % *HI* (02/26/1535 AM) Platelet [150-400 255 10*3/uL 10*3/uL] (02/26/15:35 AM) MPV [9.4-12.4 fL] 9.3 fL *LOW* (02/26/1535 AM) Immature 0.5 % Granulocytes (02/26/1535 AM) [0.0-1.0 %] Neutrophils [51-75 64 % %] (02/26/1535 AM) Lymphocytes [20-46 25 % %] (02/26/15:35 AM) Monocytes [4-11 %] 7 % (02/26/15:35 AM) Eosinophils [0-4 %] 3 % (02/26/1535 AM) Basophils [0-2 %] 0 % (02/26/15:35 AM) Neutro Absolute 5.27 10*3 [1.90-7.00 10*3] (02/26/15 12:35 AM) Lymph Absolute 2.04 10*3 [0.80-3.30 10*3] (02/26/15 12:35 AM) [place] Absolute 0.60 10*3 [0.30-1.00 10*3] (02/26/15 12:35 AM) Eos Absolute 0.23 10*3 [0.00-0.50 10*3] (02/26/15 12:35 AM) Baso Absolute 0.03 10*3 [0.00-0.20 10*3] (02/26/15 1235 AM) Chemistry Most recent to 1 oldest [Reference Range]: Sodium Lvl [136-144 136 mEq/L mEq/L] (02/26/1535 AM) Potassium Lvl 4.5 mEq/L [3.6-5.1 mEq/L] (02/26/1535 AM) Chloride [99-109 101 mEq/L mEq/L] (02/26/1535 AM) CO2 [22-32 mEq/L] 27 mEq/L (02/26/1535 AM) AGAP [3-20] 8 (02/26/15 AM) BUN [4-20 mg/dL] 10 mg/dL (02/26/15 AM) Glucose Lvl [70-100 75 mg/dL mg/dL] (02/26/15 AM) Creatinine Lvl 0.57 mg/dL [0.44-1.03 mg/dL] (02/26/1535 AM) eGFR [>60] >60 1 (02/26/15 AM) Calcium Lvl 9.6 mg/dL [8.6-10.0 mg/dL] (02/26/1535 AM) Albumin Lvl [3.5-4.8 3.8 gm/dL gm/dL] (02/26/15 AM) Total Protein 8.2 gm/dL [6.1-7.9 gm/dL] *HI* (02/26/1535 AM) Globulin [1.9-4.3 4.4 gm/dL gm/dL] *HI* (02/26/1535 AM) ALT [14-54 U/L] 18 U/L (02/26/15 AM) AST [15-41 U/L] 23 U/L (02/26/1535 AM) Alk Phos [26-104 95 U/L U/L] (02/26/1535 AM) Bili Total [0.2-1.2 0.5 mg/dL 2 mg/dL] (5/13/15 12:35 AM) 1Result Comment: Multiply eGFR results by 1.21 for race. 2Result Comment: Naproxen, specifically the metabolite O-desmethylnaproxen, may cause spurious elevation in Total Bilirubin levels. Microbiology Reports TEST: Affirm Vaginitis Panel STATUS: Auth (Verified) BODY SITE: SOURCE: Cervix/Vaginal COLLECTED DATE/TIME: 02/25/15 11:50 PM Affirm Vaginitis Panel Negative for Trichomonas vaginalis Negative for Gardnerella vaginalis Negative for Velma species Immunizations Vaccine Date Refusal Reason pneumococcal 23-polyvalent vaccine 11/18/14 Procedures Procedure Date Related Diagnosis Body Site Esophagogastroduodenoscopy Balloon Dilat1 02/14/15 Examination Under Anesthesia2 02/14/15 Adenoidectomy Bilateral tubal ligation Bronchoscope Cardiac catheterization, combined right and left heart Tonsillectomy Tympanostomy [place] tooth 1auto-populated from documented surgical case 2auto-populated from documented surgical case Social History Social History Type Response Smoking Status Former smoker; Type: Cigarettes; Tobacco use per day: 1 Pack1 1quit 05/2015 Assessment and Plan No data available for this section
--- OUTSIDE RECORDS SUMMARY | 2017-01-20 22:12 | XMS REPORT | Referral Summary ---
Author Organization Unknown Address Unknown Phone Unavailable Care Team Providers Care Buckle Stapler Name Role Phone Pardeep Poole Primary Care Physician [phone] Encounter VC Date(s): 11/06/14 - 11/06/[address] [place], [place] [address] Discharge Diagnosis: Seizure Discharge Disposition: Home or Self Care Attending Physician: Jose Daily MD Admitting Physician: Jose Daily MD Vital Signs Most recent to 1 oldest [Reference Range]: Peripheral Pulse 75 bpm Rate [60-100 bpm] (11/06/14 4:38 PM) Respiratory Rate 18 br/min [14-20 br/min] (11/06/14 4:38 PM) Blood Pressure 122/85 mmHg [90-140/60-90 mmHg] (11/06/14 4:38 PM) Most recent to 1 oldest [Reference Range]: SpO2 100 % (11/06/14 4:38 PM) Problem List Condition Effective Dates Status [...] QIDACHS, # 1,200 mL, 6 Refill(s), Pharmacy: [facility] [id number], 10 mL Oral QIDACHS Start Date: 10/07/14 Status: Ordered Flonase 50 mcg/inh nasal spray 1 sprays, Nasal, BID, # 16 g, 5 Refill(s), Pharmacy: [facility] 54096 Start Date: 09/30/14 Status: Ordered FLUoxetine 60 mg oral tablet 1 tabs, Oral, Daily, # 30 tabs, 0 Refill(s) Start Date: 11/06/14 Status: Ordered Latuda 60 mg, Oral, Daily, 0 Refill(s) Start Date: 03/29/14 Status: Ordered levETIRAcetam 500 mg oral tablet See Instructions, TAKE 3 TABLETS BY MOUTH TWICE DAILY, # 180 tabs, 2 Refill(s), TRAN, eRx: [facility] [id number], TAKE 3 TABLETS BY MOUTH TWICE DAILY Special Instructions: TAKE 3 TABLETS BY MOUTH TWICE DAILY Start Date: 11/01/14 Status: Ordered loratadine 10 mg, Oral, Daily, 0 Refill(s) Start Date: 10/26/14 Status: Ordered NexIUM 40 mg oral delayed release capsule 1 caps, Oral, Daily, # 30 caps, 5 Refill(s), Pharmacy: [facility] 88400, 1 caps Oral Daily Start Date: 07/19/14 Status: Ordered ProAir HFA 90 mcg/inh inhalation aerosol See Instructions, 2-4 puffs every 4-6 hrs prn., # 1 Each, 1 Refill(s), Pharmacy : [facility] Special Instructions: 2-4 puffs every 4-6 hrs [...] Range]: Sodium Venous 141 mEq/L [136-144 mEq/L] (11/06/14 3:56 PM) Potassium Venous 4.9 mEq/L 1 [3.6-5.1 mEq/L] (11/06/14 3:56 PM) Calcium Ionized 1.26 mmol/L Venous [1.19-1.41 (11/06/14 3:56 PM) mmol/L] Total CO2 Venous 22 mEq/L [25-29 mEq/L] *LOW* (11/06/14 3:56 PM) HGB Venous NPT 13.3 gm/dL [12.0-16.0 gm/dL] (11/06/14 3:56 PM) HCT Venous 39.0 % [37.0-47.0 %] (11/06/14 3:56 PM) Glucose Venous 87 mg/dL [70-100 mg/dL] (11/06/14 3:56 PM) BUN Venous [4-20] 10 (11/06/14 3:56 PM) Creatinine Venous 0.5 mg/dL [0.4-1.0 mg/dL] (11/06/14 3:56 PM) Venous CL [99-109 106 mEq/L mEq/L] (11/06/14 3:56 PM) Anion Gap, Darron 13 [3-20] (11/06/14 3:56 PM) 1Result Comment: This test was performed on a whole blood specimen. The presence or absence of hemolysis cannot be assessed. Hemolysis can falsely elevate potassium levels. Normals are for venous specimens only. Immunizations No data available for this section Procedures Procedure Date Related Diagnosis Body Site Adenoidectomy Bilateral tubal ligation Bronchoscope Tonsillectomy Tympanostomy [place] tooth Social History Social History Type Response Smoking Status Former smoker Assessment and Plan No data available for this section
--- OUTSIDE RECORDS SUMMARY | 2017-01-20 22:12 | XMS REPORT | Referral Summary ---
Author Organization Unknown Address Unknown Phone Unavailable Care Team Providers Care Screw Supervisor Name Role Phone Pardeep Poole Primary Care Physician [phone] Encounter VC Date(s): 01/29/15 - 01/29/15 Via [facility] [address] [place] [address] [place] ( 1 ) - Final: ABDOMINAL PAIN, UNSPECIFIED SITE Final: TOBACCO USE DISORDER Discharge Diagnosis: Abdominal pain Discharge Diagnosis: Acute UTI Discharge Disposition: Home or Self Care Attending Physician: Quinton Mixon MD Admitting Physician: Quinton Mixon MD Vital Signs Most recent to 1 oldest [Reference Range]: Temperature Oral 36.6 degC [35.8-37.3 degC] (01/29/15 12:33 AM) Peripheral Pulse 91 bpm Rate [60-100 bpm] (01/29/15 1:54 AM) Blood Pressure 117/76 mmHg [90-140/60-90 mmHg] (01/29/15 1:54 AM) Most recent to 1 oldest [Reference Range]: SpO2 96 % (01/29/15 1:54 AM) Problem List Condition Effective Dates Status [...] pain, # 300 mL, 0 Refill(s), Pharmacy: [email or web address] 26902, 10 mL Oral q6hr,PRN:as needed for pain Start Date: 12/24/14 Status: Ordered Advair Diskus 250 mcg-50 mcg inhalation powder See Instructions, INHALE 1 PUFF BY INHALATION ROUTE 2 TIMES EVERY DAY IN THE MORNING AND EVENING APPROXIMATELY 12 HOURS APART, # 1 unknown unit, eRx: [email or web address] [id number], INHALE 1 PUFF BY INHALATION ROUTE 2 TIMES EVERY DAY IN THE MORNING AND EV... Special Instructions: INHALE 1 PUFF BY INHALATION ROUTE 2 TIMES EVERY DAY IN THE MORNING AND EVENING APPROXIMATELY 12 HOURS APART Start Date: 01/29/15 Status: Ordered Bactroban 2% topical ointment See Instructions, Apply in a thin film twice a day to area., # 22 g, 0 Refill(s) , Pharmacy: [email or web address] [id number] Special Instructions: Apply in a thin film twice a day to area. Start Date: 01/23/15 Status: Ordered FLUoxetine 20 mg oral capsule 20 mg, Oral, qAM, # 30 caps, 2 Refill(s), Pharmacy: [email or web address] 97122, 20 mg Oral qAM Start Date: 01/14/15 Status: Ordered imipramine 25 mg oral tablet 2 tabs, Oral, Bedtime (once a day), # 60 tabs, 3 Refill(s), Pharmacy: [email or web address] 84652, 2 tabs Oral Bedtime (once a day) Start Date: 12/30/14 Status: Ordered Latuda 60 mg, Oral, qPM, with food, 0 Refill(s) Special Instructions: with food Start Date: 03/29/14 Status: Ordered levETIRAcetam 1,500 mg, Oral, BID, 0 Refill(s) Start Date: 11/18/14 Status: Ordered lidocaine 5% topical film 1 patches, Topical, Daily, remove patches after 12 hours, # 30 patches, 0 Refill (s), Pharmacy: [email or web address] 68895 Special Instructions: remove patches after 12 hours Start Date: 01/14/15 Status: Ordered loratadine 10 mg oral tablet 10 mg, Oral, Daily, # 30 tabs, 5 Refill(s), [facility] , 10 mg Oral Daily Start Date: [...] 0 Refill(s) Start Date: 01/11/15 Status: Ordered [place] 5 mg-325 mg oral tablet 1 tabs, [...] 1 oldest [Reference Range]: WBC [4.8-10.8 K/uL] 7.3 K/uL (01/29/15 12:54 AM) RBC [4.00-5.20 M/uL] 4.26 M/uL (01/29/15 12:54 AM) Hgb [12.0-16.0 11.8 gm/dL gm/dL] *LOW* (01/29/1554 AM) Hct [37.0-47.0 %] 38.4 % (01/29/1554 AM) MCV [82.0-99.0 fL] 90.1 fL (01/29/1554 AM) MCH [27.0-32.0 pg] 27.7 pg (01/29/1554 AM) MCHC [32.0-36.0 30.7 gm/dL gm/dL] *LOW* (01/29/1554 AM) RDW [11.5-14.5 %] 16.0 % *HI* (01/29/1554 AM) Platelet [150-400 256 K/uL K/uL] (01/29/1554 AM) MPV [9.4-12.4 fL] 9.6 fL (01/29/1554 AM) Immature 0.3 % Granulocytes (01/29/15) [0.0-1.0 %] Neutrophils [51-75 59 % %] (01/29/15:54 AM) Lymphocytes [20-46 31 % %] (01/29/15:54 AM) Monocytes [4-11 %] 7 % (01/29/1554 AM) Eosinophils [0-4 %] 2 % (01/29/1554 AM) Basophils [0-2 %] 0 % (01/29/1554 AM) Neutro Absolute 4.34 THOUS [1.90-7.00 THOUS] (01/29/1554 AM) Lymph Absolute 2.29 THOUS [0.80-3.30 THOUS] (01/29/15:54 AM) [place] Absolute 0.50 THOUS [0.30-1.00 THOUS] (01/29/15:54 AM) Eos Absolute 0.15 THOUS [0.00-0.50 THOUS] (01/29/15 12:54 AM) Baso Absolute 0.03 THOUS [0.00-0.20 THOUS] (01/29/15 12:54 AM) Chemistry Most recent to 1 oldest [Reference Range]: Sodium Lvl [136-144 141 mEq/L mEq/L] (01/29/15 12:54 AM) Potassium Lvl 3.6 mEq/L [3.6-5.1 mEq/L] (01/29/15:54 AM) Chloride [99-109 110 mEq/L mEq/L] *HI* (01/29/15 AM) CO2 [22-32 mEq/L] 23 mEq/L (01/29/1554 AM) AGAP [3-20] 8 (01/29/1554 AM) BUN [4-20 mg/dL] 9 mg/dL (01/29/1554 AM) Glucose Lvl [70-100 102 mg/dL mg/dL] *HI* (01/29/15 AM) Creatinine Lvl 0.69 mg/dL [0.44-1.03 mg/dL] (01/29/1554 AM) eGFR [>60] >60 2 (01/29/15 AM) Calcium Lvl 8.8 mg/dL [8.6-10.0 mg/dL] (01/29/15 AM) Albumin Lvl [3.5-4.8 3.4 gm/dL gm/dL] *LOW* (01/29/15) Total Protein 7.4 gm/dL [6.1-7.9 gm/dL] (01/29/15 AM) Globulin [1.9-4.3 4.0 gm/dL gm/dL] (01/29/1554 AM) ALT [14-54 unit/L] 16 unit/L (01/29/1554 AM) AST [15-41 unit/L] 15 unit/L (01/29/1554 AM) Alk Phos [26-104 93 unit/L unit/L] (01/29/15:54 AM) Bili Total [0.2-1.2 0.3 mg/dL 1 mg/dL] (01/29/15:54 AM) Lipase Lvl [8-48 25 unit/L unit/L] (01/29/15 12:54 AM) Amylase Lvl [28-100 93 unit/L unit/L] (01/29/15:54 AM) 1Result Comment: Naproxen, specifically the metabolite O-desmethylnaproxen, may cause spurious elevation in Total Bilirubin levels. 2Result Comment: Multiply eGFR results by 1.21 for race. Urinalysis Most recent to 1 oldest [Reference Range]: UA Color Yellow (01/29/15 12:50 AM) UA Appear Clear (01/29/15 12:50 AM) UA pH [5.0-8.0] 7.0 (01/29/15 12:50 AM) UA Leuk Est Pos 1+ [Negative] *ABN* (01/29/15 12:50 AM) UA Nitrite Negative [Negative] (01/29/15 12:50 AM) UA Protein Trace [Negative] *ABN* (01/29/15 12:50 AM) UA Glucose Negative [Negative] (01/29/15 12:50 AM) UA Ketones Trace [Negative] *ABN* (01/29/15 12:50 AM) UA Urobilinogen 1.0 mg/dL [<1.0 mg/dL] (01/29/15 12:50 AM) UA Bili [Negative] Negative (01/29/15 12:50 AM) UA Blood [Negative] Pos 3+ *ABN* (01/29/15 12:50 AM) UA Spec Grav 1.027 [1.003-1.030] (01/29/15 12:50 AM) Type Clean Catch (01/29/15 12:50 AM) UA WBC [0-4] 10-20 *ABN* (01/29/15 12:50 AM) UA RBC [0-2] 10-20 *ABN* (01/29/15 12:50 AM) Epithelial Cells 2-5 (01/29/15 12:50 AM) UA Bacteria Occasional *ABN* (01/29/15 12:50 AM) UA Mucous Present (01/29/15 12:50 AM) Immunizations Vaccine Date Refusal Reason pneumococcal 23-polyvalent vaccine 11/18/14 Procedures Procedure Date Related Diagnosis Body Site Adenoidectomy Bilateral tubal ligation Bronchoscope Tonsillectomy Tympanostomy [place] tooth Social History Social History Type Response Smoking Status Current every day smoker; Type: Cigarettes; Tobacco use per day: Pack Assessment and Plan No data available for this section
--- OUTSIDE RECORDS SUMMARY | 2017-01-20 22:12 | XMS REPORT | Referral Summary ---
Author Author [facility] Organization [facility] Address Unknown Phone Unavailable Care Team Providers Care Cloth Printing Back Tender Name Role Phone [facility] Primary Care Physician Unavailable Encounter [facility] [id number] Date(s): 01/08/16 - 01/08/16 [facility] [address], [place] [address] Discharge Disposition: 01-Home or Self [...] pain, # 300 mL, 0 Refill(s), Pharmacy: [facility] 30391, 10 mL Oral q6hr,PRN:as needed for pain Start Date: 12/24/14 Status: Ordered Advair Diskus 250 mcg-50 mcg inhalation powder See Instructions, INHALE 1 PUFF BY INHALATION ROUTE 2 TIMES EVERY DAY IN THE MORNING AND EVENING APPROXIMATELY 12 HOURS APART, # 1 unknown unit, eRx: [facility] [id number], INHALE 1 PUFF BY INHALATION ROUTE 2 [...] Daily, # 30 tabs, 5 Refill(s), Pharmacy: [facility] 20812, 1 tabs Oral Daily Start Date: 09/01/15 Status: Ordered codeine-guaiFENesin 10 mg-300 mg/5 mL oral liquid 5 mL, Oral, q6hr, as needed for cough, # 120 mL, 0 Refill(s) Start Date: 12/21/15 Status: Ordered Flonase 50 mcg/inh nasal spray 2 sprays, Nasal, Daily, # 1 Each, 5 Refill(s), Pharmacy: [facility] 46103 Start Date: 12/12/15 Status: Ordered ibuprofen 800 mg oral tablet 800 mg 1 tabs, Oral, TID, Pain, # 15 tabs, 0 Refill(s) Start Date: 12/07/15 Status: Ordered loratadine 10 mg oral tablet 10 mg, Oral, Daily, # 30 tabs, 5 Refill(s), Pharmacy: [facility] 40625 , 10 mg Oral Daily Start Date: [...] # 1 Each, 1 Refill(s), Pharmacy : [facility] [address] Start Date: 06/11/15 Status: Ordered Robitussin DM To Go 20 mg-200 mg/10 mL oral liquid 10 mL, Oral, q4hr, as needed for cough, # 100 mL, 0 Refill(s), Pharmacy: [facility] 70168 Start Date: 12/12/15 Status: Ordered Vitamin D3 [...] combined right and left heart Tonsillectomy Tympanostomy [place] tooth 1auto-populated from documented surgical case 2auto-populated [...]
--- OUTSIDE RECORDS SUMMARY | 2017-01-20 22:12 | XMS REPORT | Referral Summary ---
Author Author [facility] Organization [facility] Address Unknown Phone Unavailable Care Team Providers Care Architecture Analyst Name Role Phone MartinImelda Primary Care Physician [phone] Encounter [facility] Date(s): 11/13/15 - 11/13/15 [facility] [address] [place], [place] [address] Discharge Diagnosis: Acute serous otitis media of right ear Discharge Disposition: 01-Home or Self Care Attending Physician: Rafael Katz MD Admitting Physician: Rafael Katz MD Vital Signs Most recent to 1 oldest [Reference Range]: Temperature Tympanic 35.6 degC [36.6-38.1 degC] *LOW* (11/13/15 9:15 AM) Problem List Condition Effective Dates Status [...] pain, # 300 mL, 0 Refill(s), Pharmacy: [email or web address] [address], 10 mL Oral q6hr,PRN:as needed for pain Start Date: 12/24/14 Status: Ordered Advair Diskus 250 mcg-50 mcg inhalation powder See Instructions, INHALE 1 PUFF BY INHALATION ROUTE 2 TIMES EVERY DAY IN THE MORNING AND EVENING APPROXIMATELY 12 HOURS APART, # 1 unknown unit, eRx: [email or web address] [id number], INHALE 1 PUFF BY INHALATION ROUTE 2 TIMES EVERY DAY IN THE MORNING AND EV... Start Date: 02/25/15 Status: Ordered Atrovent 42 mcg/inh nasal spray 2 sprays, Nasal, TID, # 2 Each, 5 Refill(s), Pharmacy: [email or web address] [address] Start Date: 06/11/15 Stop Date: 06/11/16 Status: Ordered Carafate 1 g oral tablet 1 g 1 tabs, Oral, QID, Dissolve in water and drink, # 40 tabs, 0 Refill(s) Start Date: 08/31/15 Status: Ordered cetirizine 10 mg oral tablet 10 mg 1 tabs, Oral, Daily, # 30 tabs, 5 Refill(s), Pharmacy: [email or web address] [address]66, 1 tabs Oral Daily Start Date: 09/01/15 Status: Ordered Keflex 500 mg oral capsule 500 mg 1 caps, Oral, QID, X 5 days, # 20 caps, 0 Refill(s) Start Date: 11/13/15 Stop Date: 11/18/15 Status: Ordered Linzess 290 mcg oral capsule 1 caps, Oral, Daily, # 30 caps, 6 Refill(s), Pharmacy: [email or web address] [address]234, 1 caps Oral Daily Start Date: 02/24/15 Status: Ordered loratadine 10 mg oral tablet 10 mg, Oral, Daily, # 30 tabs, 5 Refill(s), Pharmacy: [email or web address] [address] , 10 mg Oral Daily Start Date: [...] Refill(s), Pharmacy : [facility] [address] Start Date: 06/11/15 Status: Ordered Sudafed 12-Hour [...] combined right and left heart Tonsillectomy Tympanostomy [place] tooth 1auto-populated from documented surgical case 2auto-populated from documented surgical case Social History Social History Type Response Smoking Status Never smoker Assessment and Plan Extracted from: Title: Ambulatory Patient Education Author: Rafael Katz MD Date: 11/13/15 No follow up information was provided. Extracted from: Title: ENT recheck Author: Rafael Katz MD Date: 11/13/15 Assessment/Plan Acute serous otitis media of right ear Ordered: pseudoephedrine, 120 mg 1 tabs, Oral, q12hr, # 20 tabs, 0 Refill(s), other reason (Rx) Recommend: Try Sudafedfor the next 2 weeks. She will return in 2 weeks. If she still hasher serous otitis mediaa myringotomy might be contemplated.
--- OUTSIDE RECORDS SUMMARY | 2017-01-20 22:12 | XMS REPORT | Referral Summary ---
Author Organization Unknown Address Unknown Phone Unavailable Care Team Providers Care Lumber Carrier Operator Name Role Phone Pardeep Poole Primary Care Physician [phone] Encounter VC Date(s): 01/31/15 - 01/31/15 [facility] [address], [place] [address] Discharge Diagnosis: Anemia Discharge Diagnosis: GERD (gastroesophageal reflux disease) Discharge Diagnosis: Inadequate Community Resources Discharge Disposition: Home or Self Care Attending Physician: Sarah Poole MD Admitting Physician: Sarah Poole MD Vital Signs Most recent to 1 oldest [Reference Range]: Peripheral Pulse 112 bpm Rate [60-100 bpm] *HI* (01/31/15 11:04 AM) Respiratory Rate 18 br/min [14-20 br/min] (01/31/15 11:04 AM) Blood Pressure 128/90 mmHg [90-140/60-90 mmHg] (01/31/15 11:04 AM) Most recent to 1 oldest [Reference Range]: SpO2 97 % (01/31/15 11:04 AM) Problem List Condition Effective Dates Status [...] pain, # 300 mL, 0 Refill(s), Pharmacy: [facility] [id number], 10 mL Oral q6hr,PRN:as needed for pain Start Date: 12/24/14 Status: Ordered Advair Diskus 250 mcg-50 mcg inhalation powder See Instructions, INHALE 1 PUFF BY INHALATION ROUTE 2 TIMES EVERY DAY IN THE MORNING AND EVENING APPROXIMATELY 12 HOURS APART, # 1 unknown unit, eRx: [facility] [id number], INHALE 1 PUFF BY INHALATION ROUTE 2 [...] # 22 g, 0 Refill(s) , Pharmacy: [facility] [id number] Special Instructions: Apply in a thin film twice a day to area. Start Date: 01/23/15 Status: Ordered FLUoxetine 20 mg oral capsule 20 mg, Oral, qAM, # 30 caps, 2 Refill(s), Pharmacy: [facility] [id number], 20 mg Oral qAM Start Date: 01/14/15 Status: Ordered imipramine 25 mg oral tablet 2 tabs, Oral, Bedtime (once a day), # 60 tabs, 3 Refill(s), Pharmacy: [facility] [id number], 2 tabs Oral Bedtime (once a day) Start Date: 12/30/14 Status: Ordered Latuda 60 mg, Oral, qPM, with food, 0 Refill(s) Special Instructions: with food Start Date: 03/29/14 Status: Ordered levETIRAcetam 1,500 mg, Oral, BID, 0 Refill(s) Start Date: 11/18/14 Status: Ordered loratadine 10 mg oral tablet 10 mg, Oral, Daily, # 30 tabs, 5 Refill(s), Pharmacy: [id number] , 10 mg Oral Daily Start Date: [...] Most recent to 1 oldest [Reference Range]: Iron [50-170 mcg/dL] 47 mcg/dL *LOW* (01/31/15 11:56 AM) Vitamin B12 Lvl 292 pg/mL [213-816 pg/mL] (01/31/15 11:56 AM) Folate Lvl [7.0-31.4 15.6 ng/mL ng/mL] (01/31/15 11:56 AM) Immunizations Vaccine Date Refusal Reason pneumococcal 23-polyvalent vaccine 11/18/14 Procedures Procedure Date Related Diagnosis Body Site Adenoidectomy Bilateral tubal ligation Bronchoscope Tonsillectomy Tympanostomy [place] tooth Social History Social History Type Response Smoking Status Current every day smoker; Type: Cigarettes; Tobacco use per day: Pack Assessment and Plan Extracted from: Title: Ambulatory Patient Education Author: Sarah Poole MD Date: 01/31 Family Medicine Diet for Gastroesophageal Reflux Disease, Adult Reflux (acid reflux ) is when acid from your stomach flows up into the esophagus. When acid comes in contact with the esophagus, the acid causes irritation and soreness (inflammation ) in the esophagus. When reflux happens often or so severely that it causes damage to the esophagus, it is called gastroesophageal reflux disease (GERD). Nutrition therapy can help ease the discomfort of GERD. FOODS OR DRINKS TO AVOID OR LIMIT Smoking or chewing tobacco. Nicotine is one of the most potent stimulants to acid production in the gastrointestinal tract. Caffeinated and decaffeinated coffee and black tea. Regular or low-calorie carbonated beverages or energy drinks (caffeine- free carbonated beverages are allowed). Strong spices, such as black pepper, white pepper, red pepper, cayenne, reyna powder, and chili powder. Peppermint or spearmint. Chocolate. High-fat foods, including meats and fried foods. Extra added fats including oils, butter, salad dressings, and nuts. Limit these to less than 8 tsp per day. Fruits and vegetables if they are not tolerated, such as citrus fruits or tomatoes. Alcohol. Any food that seems to aggravate your condition. If you have questions regarding your diet, call your caregiver or a registered dietitian. OTHER THINGS THAT MAY HELP GERD INCLUDE: Eating your meals slowly, in a relaxed setting. Eating 5 to 6 small meals per day instead of 3 large meals. Eliminating food for a period of time if it causes distress. Not lying down until 3 hours after eating a meal. Keeping the head of your bed raised 6 to 9 inches (15 to 23 cm) by using a foam wedge or blocks under the legs of the bed. Lying flat may make symptoms worse. Being physically active. Weight loss may be helpful in reducing reflux in overweight or obese adults. Wear loose fitting clothing EXAMPLE MEAL PLAN This meal plan is approximately 2,000 calories based on ChooseMyPlate.gov meal planning guidelines. Breakfast cup cooked oatmeal. 1 cup strawberries. 1 cup low-fat milk. 1 oz almonds. Snack 1 cup cucumber slices. 6 oz yogurt (made from low-fat or fat-free milk). Lunch 2 slice whole-wheat bread. 2 oz sliced turkey. 2 tsp mayonnaise. 1 cup blueberries. 1 cup snap peas. Snack 6 whole-wheat crackers. 1 oz string cheese. Dinner cup brown rice. 1 cup mixed veggies. 1 tsp olive oil. 3 oz grilled fish. Document Released: 10/03/2006 Document Revised: 12/25/2012 Document Reviewed: ExitCare Patient Information 2014 [facility]. No follow up information was provided. Extracted from: Title: *ER OVERUSE Author: Sarah Poole MD Date: 01/31/15 Assessment/Plan 1.Anemia Check labs. Ordered: Folate Level Iron Level Vitamin B12 Level 2.Inadequate Community Resources Ptmet with Mail Order Clerk and Cloth Stretcher while she was in the office today. I have addressed ER overuse with Teto multiple times in the past without success but hopefully with the help of these ladies we can find some additional resources to help Teto. They plan to contact her [facility] geriatric case manager about additional services as well as contact [facility]. Discussed appropriate ER use with Teto at length and explained that most things should be able to be addressed during office hours. If she is having an issue at night then it needs to wait until the following morning unless it is a true emergency. 3.GERD (gastroesophageal reflux disease) The medicine her GI prescribed is expensive. She just got if filled but the next time it is due she will let us know so we can find a cheaper alternative.
--- OUTSIDE RECORDS SUMMARY | 2017-01-20 22:12 | XMS REPORT | Referral Summary ---
Author Author [facility] Organization [facility] Address Unknown Phone Unavailable Care Team Providers Care Boiling House Hand Name Role Phone Imelda Martin Primary Care Physician [phone] Encounter [facility] [id number] Date(s): 11/15/16 - 11/15/16 [facility] [address] [place], [place] [address] Discharge Disposition: 01-Home or [...] Daily, # 30 tabs, 6 Refill(s), Pharmacy: [id number], 1 tabs Oral Daily Start Date: 11/12/16 [...] combined right and left heart Tonsillectomy Tympanostomy [place] tooth 1auto-populated from documented surgical case 2auto-populated from documented surgical case 3auto-populated from documented surgical case 4auto-populated from documented surgical case 5auto-populated from documented surgical case Social History Social History Type Response Smoking Status Current every day smoker; Type: Cigarettes; Tobacco use per day: 1 Pack Assessment and Plan No data available for this section
--- OUTSIDE RECORDS SUMMARY | 2017-01-20 22:12 | XMS REPORT | Referral Summary ---
Author Author [facility] Organization [facility] Address Unknown Phone Unavailable Care Team Providers Care Safety Administrator Name Role Phone Imelda Martin Primary Care Physician [phone] Encounter VC Date(s): 02/14/15 - 02/14/15 [facility] [address] [facility] [place] [address] GH [phone] Final: STRICTURE AND STENOSIS OF ESOPHAGUS Final: [...] pain, # 300 mL, 0 Refill(s), Pharmacy: [facility] [id number], 10 mL Oral q6hr,PRN:as needed for pain Start Date: 12/24/14 Status: Ordered Advair Diskus 250 mcg-50 mcg inhalation powder See Instructions, INHALE 1 PUFF BY INHALATION ROUTE 2 TIMES EVERY DAY IN THE MORNING AND EVENING APPROXIMATELY 12 HOURS APART, # 1 unknown unit, eRx: [facility] [id number], INHALE 1 PUFF BY INHALATION ROUTE 2 TIMES EVERY DAY IN THE MORNING AND EV... Start Date: 02/25/15 Status: Ordered albuterol 2.5 mg/3 mL (0.083%) inhalation solution 3 mL, Inhalation, q6hr (scheduled), # 60 Each, 1 Refill(s), Pharmacy: [facility] [id number], 3 mL Inhalation q6hr (scheduled) Start Date: 02/13/15 Status: Ordered Atrovent 42 mcg/inh nasal spray 2 sprays, Nasal, TID, # 2 Each, 5 Refill(s), Pharmacy: [facility] [id number] Start Date: 06/11/15 Stop Date: 06/11/16 Status: Ordered Chloraseptic [place] 1.4% topical spray 5 sprays, Oral, q2hr, # 10 mL, 0 Refill(s) Start Date: 08/11/15 Stop Date: 08/11/16 Status: Ordered levETIRAcetam 500 mg oral tablet See Instructions, TAKE 3 TABLETS BY MOUTH TWICE DAILY, # 180 tabs, 12 Refill(s) , [id number], TAKE 3 TABLETS BY MOUTH TWICE DAILY Start Date: 02/27/15 Status: Ordered Linzess 290 mcg oral capsule 1 caps, Oral, Daily, # 30 caps, 6 Refill(s), Pharmacy: [facility] 54978, 1 caps Oral Daily Start Date: 02/24/15 Status: Ordered loratadine 10 mg oral tablet 10 mg, Oral, Daily, # 30 tabs, 5 Refill(s), [id number] , 10 mg Oral Daily Start Date: [...] # 1 Each, 1 Refill(s), Pharmacy : [facility] [id number] Start Date: 06/11/15 Status: Ordered traZODone Oral, [...] combined right and left heart Tonsillectomy Tympanostomy [place] tooth 1auto-populated from documented surgical case 2auto-populated from documented surgical case Social History Social History Type Response Smoking Status Former smoker; Type: Cigarettes; Tobacco use per day: 1 Pack1 1quit 05/2015 Assessment and Plan No data available for this section
--- OUTSIDE RECORDS SUMMARY | 2017-01-20 22:13 | XMS REPORT | Referral Summary ---
Author Author [facility] Organization [facility] Address Unknown Phone Unavailable Care Team Providers Care Feather Curling Machine Operator Name Role Phone Imelda Martin Primary Care Physician [phone] Encounter VC Date(s): 11/21/15 - 11/22/15 [facility] [address] [place] [address] Discharge Diagnosis: Hiatal hernia Discharge Diagnosis: Abdominal pain Discharge Disposition: 01-Home or Self Care Attending Physician: Vance Lei MD Admitting Physician: Vance Lei MD Vital Signs Most recent to 1 oldest [Reference Range]: Temperature Temporal 35.9 degC Artery [36.3-37.8 *LOW* degC] (11/21/15 9:57 PM) Peripheral Pulse 72 bpm Rate [60-100 bpm] (11/21/15 9:57 PM) Heart Rate Monitored 92 bpm [60-100 bpm] (11/22/15 12:28 AM) Respiratory Rate 16 br/min [14-20 br/min] (11/22/15 12:28 AM) Blood Pressure 114/78 mmHg [90-140/60-90 mmHg] (11/22/15 12:28 AM) Mean Arterial 88 mmHg Pressure, Cuff (11/22/15 12:28 AM) SpO2 96 % (11/22/15 12:28 AM) Problem List Condition Effective Dates Status [...] pain, # 300 mL, 0 Refill(s), Pharmacy: [facility] [id number], 10 mL Oral q6hr,PRN:as needed for pain Start Date: 12/24/14 Status: Ordered Advair Diskus 250 mcg-50 mcg inhalation powder See Instructions, INHALE 1 PUFF BY INHALATION ROUTE 2 TIMES EVERY DAY IN THE MORNING AND EVENING APPROXIMATELY 12 HOURS APART, # 1 unknown unit, eRx: [facility] [id number], INHALE 1 PUFF BY INHALATION ROUTE 2 TIMES EVERY DAY IN THE MORNING AND EV... Start Date: 02/25/15 Status: Ordered Atrovent 42 mcg/inh nasal spray 2 sprays, Nasal, TID, # 2 Each, 5 Refill(s), Pharmacy: [facility] [id number] Start Date: 06/11/15 Stop Date: 06/11/16 Status: Ordered Carafate 1 g oral tablet 1 g 1 tabs, Oral, QID, Dissolve in water and drink, # 40 tabs, 0 Refill(s) Start Date: 08/31/15 Status: Ordered cetirizine 10 mg oral tablet 10 mg 1 tabs, Oral, Daily, # 30 tabs, 5 Refill(s), Pharmacy: [facility] [id number], 1 tabs Oral Daily Start Date: 09/01/15 Status: Ordered Linzess 290 mcg oral capsule 1 caps, Oral, Daily, # 30 caps, 6 Refill(s), Pharmacy: [facility] [id number], 1 caps Oral Daily Start Date: 02/24/15 Status: Ordered loratadine 10 mg oral tablet 10 mg, Oral, Daily, # 30 tabs, 5 Refill(s), Pharmacy: [facility] [id number] , 10 mg Oral Daily Start Date: 01/14/15 Status: Ordered Lortab Elixir 10 mg-300 mg/15 mL oral liquid 10 mL, Oral, q6hr, X 3 days, # 120 mL, 0 Refill(s) Start Date: 11/22/15 Stop Date: 11/25/15 Status: Ordered ondansetron 4 mg oral tablet [...] # 1 Each, 1 Refill(s), Pharmacy : [facility] [id number] Start Date: 06/11/15 Status: Ordered Sudafed 12-Hour [...] Start Date: 10/26/14 Status: Ordered Zofran 4 mg/5 mL oral solution 4 mg 5 mL, Oral, q8hr, as needed for nausea/vomiting, X 3 days, # 45 mL, 0 Refill(s) Start Date: 11/22/15 Stop Date: 11/25/15 Status: Ordered Results Hematology Most recent to 1 oldest [Reference Range]: WBC [4.8-10.8 8.2 10*3/uL 10*3/uL] (11/21/15 11:17 PM) RBC [4.00-5.20] 4.66 (11/21/15:17 PM) Hgb [12.0-16.0 11.6 gm/dL gm/dL] *LOW* (11/21/15:17 PM) Hct [37.0-47.0 %] 37.6 % (11/21/15:17 PM) MCV [82.0-99.0 fL] 80.7 fL *LOW* (11/21/15: PM) MCH [27.0-32.0 pg] 24.9 pg *LOW* (11/21/15:17 PM) MCHC [32.0-36.0 30.9 gm/dL gm/dL] *LOW* (11/21/15: PM) RDW [11.5-14.5 %] 19.0 % *HI* (11/21/15:17 PM) Platelet [150-400 253 10*3/uL 10*3/uL] (11/21/15:17 PM) MPV [9.4-12.4 fL] 9.6 fL (11/21/15:17 PM) Immature 0.1 % Granulocytes (11/21/15:17 PM) [0.0-1.0 %] Neutrophils [51-75 67 % %] (11/21/15:17 PM) Lymphocytes [20-46 26 % %] (11/21/15:17 PM) Monocytes [4-11 %] 5 % (11/21/15:17 PM) Eosinophils [0-4 %] 1 % (11/21/15:17 PM) Basophils [0-2 %] 0 % (11/21/15:17 PM) Neutro Absolute 5.47 10*3 [1.90-7.00 10*3] (11/21/15 11:17 PM) Lymph Absolute 2.15 10*3 [0.80-3.30 10*3] (11/21/15 11:17 PM) [place] Absolute 0.44 10*3 [0.30-1.00 10*3] (11/21/15 11:17 PM) Eos Absolute 0.11 10*3 [0.00-0.50 10*3] (11/21/15:17 PM) Baso Absolute 0.02 10*3 [0.00-0.20 10*3] (11/21/15 PM) Nucleated RBC 0.0 /100 WBC Automated [0 /100 (11/21/15: PM) WBC] Chemistry Most recent to 1 oldest [Reference Range]: Sodium Lvl [136-144 137 mEq/L mEq/L] (11/21/15 PM) Potassium Lvl 4.3 mEq/L 1 [3.6-5.1 mEq/L] (11/21/15: PM) Chloride [99-109 106 mEq/L mEq/L] (11/21/15 PM) CO2 [22-32 mEq/L] 22 mEq/L (11/21/15 PM) AGAP [3-20] 9 (11/21/15 PM) BUN [4-20 mg/dL] 8 mg/dL (11/21/15 PM) Glucose Lvl [70-100 82 mg/dL mg/dL] (11/21/15: PM) Creatinine Lvl 0.58 mg/dL [0.44-1.03 mg/dL] (11/21/15 PM) eGFR [>60] >60 2 (11/21/15 PM) Calcium Lvl 9.1 mg/dL [8.6-10.0 mg/dL] (11/21/15: PM) Albumin Lvl [3.5-4.8 3.4 gm/dL gm/dL] *LOW* (11/21/15 PM) Total Protein 7.3 gm/dL [6.1-7.9 gm/dL] (11/21/15 PM) Globulin [1.9-4.3 3.9 gm/dL gm/dL] (11/21/15 PM) ALT [14-54 U/L] 24 U/L (11/21/15:17 PM) AST [15-41 U/L] 30 U/L (11/21/15 PM) Alk Phos [26-104 90 U/L U/L] (11/21/15 11:17 PM) Bili Total [0.2-1.2 0.8 mg/dL 3 mg/dL] (11/21/15 11:17 PM) Troponin [<0.06 <0.05 ng/mL ng/mL] (11/21/15 11:17 PM) 1Result Comment: Hemolyzed specimen. The following tests may be affected: ALT, AST, Ammonia, Iron, Potassium, LDH, Amylase, CPK, and Total Bilirubin. 2Result Comment: Multiply eGFR results by 1.21 for race. 3Result Comment: Naproxen, specifically the metabolite O-desmethylnaproxen, may cause spurious elevation in Total Bilirubin levels. Immunizations Vaccine Date Refusal Reason pneumococcal 23-polyvalent vaccine 11/18/14 Procedures Procedure Date Related Diagnosis Body Site Esophagogastroduodenoscopy Balloon Dilat1 02/14/15 Examination Under Anesthesia2 02/14/15 Adenoidectomy Bilateral tubal ligation Bronchoscope Cardiac catheterization, combined right and left heart Tonsillectomy Tympanostomy [place] tooth 1auto-populated from documented surgical case 2auto-populated from documented surgical case Social History Social History Type Response Smoking Status Never smoker Assessment and Plan No data available for this section
--- OUTSIDE RECORDS SUMMARY | 2017-01-20 22:13 | XMS REPORT | Referral Summary ---
Author Author [facility] Organization [facility] Address Unknown Phone Unavailable Care Team Providers Care Corporate Scheduler Name Role Phone Imelda Martin Primary Care Physician [phone] Encounter VC Date(s): 04/21/15 - 04/22/15 [facility] [address] [place] [address] FZ Final: Other acute pain Final: ABDOMINAL PAIN, UNSPECIFIED SITE Final: NAUSEA ALONE Final: TOBACCO USE DISORDER Discharge Diagnosis: Nausea Discharge Diagnosis: Acute abdominal pain Discharge Disposition: 01-Home or Self Care Attending Physician: Cam Graham MD Admitting Physician: Cam Graham MD Referring Physician: Self Referred, X Vital Signs Most recent to 1 oldest [Reference Range]: Temperature Oral 36.8 degC [35.8-37.3 degC] (04/21/15 8:11 PM) Peripheral Pulse 87 bpm Rate [60-100 bpm] (04/22/15 4:56 AM) Heart Rate Monitored 87 bpm [60-100 bpm] (04/22/15 3:50 AM) Respiratory Rate 18 br/min [14-20 br/min] (04/22/15 4:56 AM) Blood Pressure 96/64 mmHg [90-140/60-90 mmHg] (04/22/15 4:56 AM) Mean Arterial 80 mmHg Pressure, Cuff (04/22/15 3:50 AM) SpO2 98 % (04/22/15 4:56 AM) Problem List Condition Effective Dates Status [...] pain, # 300 mL, 0 Refill(s), Pharmacy: [facility] [id number], 10 mL Oral q6hr,PRN:as needed for pain Start Date: 12/24/14 Status: Ordered Advair Diskus 250 mcg-50 mcg inhalation powder See Instructions, INHALE 1 PUFF BY INHALATION ROUTE 2 TIMES EVERY DAY IN THE MORNING AND EVENING APPROXIMATELY 12 HOURS APART, # 1 unknown unit, eRx: [facility] [id number], INHALE 1 PUFF BY INHALATION ROUTE 2 TIMES EVERY DAY IN THE MORNING AND EV... Start Date: 02/25/15 Status: Ordered Atrovent 42 mcg/inh nasal spray 2 sprays, Nasal, TID, # 2 Each, 5 Refill(s), Pharmacy: [facility] 10789 Start Date: 06/11/15 Stop Date: 06/11/16 Status: Ordered Carafate 1 g oral tablet 1 g 1 tabs, Oral, QID, Dissolve in water and drink, # 40 tabs, 0 Refill(s) Start Date: 08/31/15 Status: Ordered cetirizine 10 mg oral tablet 10 mg 1 tabs, Oral, Daily, # 30 tabs, 5 Refill(s), Pharmacy: [facility] 70033, 1 tabs Oral Daily Start Date: 09/01/15 Status: Ordered Linzess 290 mcg oral capsule 1 caps, Oral, Daily, # 30 caps, 6 Refill(s), Pharmacy: [facility] 85[facility], 1 caps Oral Daily Start Date: 02/24/15 Status: Ordered loratadine 10 mg oral tablet 10 mg, Oral, Daily, # 30 tabs, 5 Refill(s), Pharmacy: [facility] 68[facility] , 10 mg Oral Daily Start Date: [...] # 1 Each, 1 Refill(s), [facility] Start Date: 06/11/15 Status: Ordered traZODone Oral, 0 Refill(s) Start Date: 04/05/15 Status: Ordered Viibryd Oral, Daily, 0 Refill(s) Start Date: 04/05/15 Status: Ordered Vitamin D3 1,000 Intl_Units, Oral, Daily, 0 Refill(s) Start Date: 10/26/14 Status: Ordered Results Hematology Most recent to 1 oldest [Reference Range]: WBC [4.8-10.8 7.0 10*3/uL 10*3/uL] (04/22/15 2:15 AM) RBC [4.00-5.20 3.94 10*6/uL 10*6/uL] *LOW* (04/22/15 2:15 AM) Hgb [12.0-16.0 10.4 gm/dL gm/dL] *LOW* (04/22/15 2:15 AM) Hct [37.0-47.0 %] 33.1 % *LOW* (04/22/15 2:15 AM) MCV [82.0-99.0 fL] 84.0 fL (04/22/15 2:15 AM) MCH [27.0-32.0 pg] 26.4 pg *LOW* (04/22/15 2:15 AM) MCHC [32.0-36.0 31.4 gm/dL gm/dL] *LOW* (04/22/15 2:15 AM) RDW [11.5-14.5 %] 16.3 % *HI* (04/22/15 2:15 AM) Platelet [150-400 212 10*3/uL 10*3/uL] (04/22/15 2:15 AM) MPV [9.4-12.4 fL] 9.0 fL *LOW* (04/22/15 2:15 AM) Immature 0.1 % Granulocytes (04/22/15:15 AM) [0.0-1.0 %] Neutrophils [51-75 57 % %] (04/22/15:15 AM) Lymphocytes [20-46 33 % %] (04/22/15 2:15 AM) Monocytes [4-11 %] 9 % (04/22/15 2:15 AM) Eosinophils [0-4 %] 2 % (04/22/15:15 AM) Basophils [0-2 %] 0 % (04/22/15 2:15 AM) Neutro Absolute 3.96 10*3 [1.90-7.00 10*3] (04/22/15 2:15 AM) Lymph Absolute 2.27 10*3 [0.80-3.30 10*3] (04/22/15 2:15 AM) [place] Absolute 0.61 10*3 [0.30-1.00 10*3] (04/22/15 2:15 AM) Eos Absolute 0.12 10*3 [0.00-0.50 10*3] (04/22/15 2:15 AM) Baso Absolute 0.01 10*3 [0.00-0.20 10*3] (04/22/15 2:15 AM) Nucleated RBC 0.0 /100 WBC Automated [0 /100 (04/22/15:15 AM) WBC] Chemistry Most recent to 1 oldest [Reference Range]: Sodium Lvl [136-144 138 mEq/L mEq/L] (04/22/15 2:15 AM) Potassium Lvl 3.8 mEq/L [3.6-5.1 mEq/L] (04/22/15 2:15 AM) Chloride [99-109 104 mEq/L mEq/L] (04/22/15 2:15 AM) CO2 [22-32 mEq/L] 27 mEq/L (04/22/15 2:15 AM) AGAP [3-20] 7 (04/22/15 2:15 AM) BUN [4-20 mg/dL] 10 mg/dL (04/22/15 2:15 AM) Glucose Lvl [70-100 81 mg/dL mg/dL] (04/22/15 2:15 AM) Creatinine Lvl 0.58 mg/dL [0.44-1.03 mg/dL] (04/22/15 2:15 AM) eGFR [>60] >60 1 (04/22/15:15 AM) Calcium Lvl 8.9 mg/dL [8.6-10.0 mg/dL] (04/22/15 2:15 AM) Albumin Lvl [3.5-4.8 3.0 gm/dL gm/dL] *LOW* (04/22/15:15 AM) Total Protein 6.5 gm/dL [6.1-7.9 gm/dL] (04/22/15 2:15 AM) Globulin [1.9-4.3 3.5 gm/dL gm/dL] (04/22/15 2:15 AM) ALT [14-54 U/L] 13 U/L *LOW* (04/22/15 2:15 AM) AST [15-41 U/L] 15 U/L (04/22/15 2:15 AM) Alk Phos [26-104 77 U/L U/L] (04/22/15 2:15 AM) Bili Total [0.2-1.2 0.6 mg/dL 2 mg/dL] (04/22/15 2:15 AM) Lipase Lvl [8-48 20 U/L U/L] (04/22/15 2:15 AM) U Beta hCG Ql Negative [Negative] (04/21/15 11:23 PM) 1Result Comment: Multiply eGFR results by 1.21 for race. 2Result Comment: Naproxen, specifically the metabolite O-desmethylnaproxen, may cause spurious elevation in Total Bilirubin levels. Urinalysis Most recent to 1 oldest [Reference Range]: UA Color Yellow (04/21/15 11:23 PM) UA Appear Clear (04/21/15 11:23 PM) UA pH [5.0-8.0] 6.5 (04/21/15 11:23 PM) UA Leuk Est Negative [Negative] (04/21/15 11:23 PM) UA Nitrite Negative [Negative] (04/21/15 11:23 PM) UA Protein Negative [Negative] (04/21/15 11:23 PM) UA Glucose Negative [Negative] (04/21/15 11:23 PM) UA Ketones Negative [Negative] (04/21/15 11:23 PM) UA Urobilinogen Negative [<1.0] (04/21/15 11:23 PM) UA Bili [Negative] Negative (04/21/15 11:23 PM) UA Blood [Negative] Trace *ABN* (04/21/15 11:23 PM) UA Spec Grav 1.021 [1.003-1.030] (04/21/15 11:23 PM) Type Voided (04/21/15 11:23 PM) UA WBC [0-4] 0-2 (04/21/15 11:23 PM) UA RBC [0-2] 2-5 (04/21/15 11:23 PM) Epithelial Cells 0-2 (04/21/15 11:23 PM) UA Bacteria Rare (04/21/15 11:23 PM) UA Mucous Present (04/21/15 11:23 PM) Immunizations Vaccine Date Refusal Reason pneumococcal 23-polyvalent vaccine 11/18/14 Procedures Procedure Date Related Diagnosis Body Site Esophagogastroduodenoscopy Balloon Dilat1 02/14/15 Examination Under Anesthesia2 02/14/15 Adenoidectomy Bilateral tubal ligation Bronchoscope Cardiac catheterization, combined right and left heart Tonsillectomy Tympanostomy [place] tooth 1auto-populated from documented surgical case 2auto-populated from documented surgical case Social History Social History Type Response Smoking Status Former smoker; Type: Cigarettes; Tobacco use per day: 1 Pack1 1quit 05/2015 Assessment and Plan No data available for this section
--- OUTSIDE RECORDS SUMMARY | 2017-01-20 22:13 | XMS REPORT | Referral Summary ---
Author Author [facility] Organization [facility] Address Unknown Phone Unavailable Care Team Providers Care Glove Pairer Name Role Phone Imelda Martin Primary Care Physician [phone] Encounter VC Date(s): 05/22/15 - 05/22/15 [facility] [address] [place], [place] [address] Discharge Diagnosis: Noncompliance with medication regimen Final: EPILEPSY, UNSPECIFIED, WITHOUT MENTION OF INTRACTABLE EPILEPSY Final: PERSONAL HISTORY OF NONCOMPLIANCE WITH MEDICAL TREATMENT, PRESENTING HAZARDS TO HEALTH Discharge Diagnosis: Seizure disorder Discharge Disposition: 01-Home or Self Care Attending Physician: Demarcus Burrell MD Admitting Physician: Demarcus Burrell MD Vital Signs Most recent to 1 oldest [Reference Range]: Temperature Oral 37.0 degC [35.8-37.3 degC] (05/22/15 2:17 PM) Peripheral Pulse 96 bpm Rate [60-100 bpm] (05/22/15 2:17 PM) Heart Rate Monitored 83 bpm [60-100 bpm] (05/22/15 4:20 PM) Respiratory Rate 16 br/min [14-20 br/min] (05/22/15 4:20 PM) Blood Pressure 110/72 mmHg [90-140/60-90 mmHg] (05/22/15 4:20 PM) Mean Arterial 97 mmHg Pressure, Cuff (05/22/15 4:20 PM) SpO2 95 % (05/22/15 4:20 PM) Problem List Condition Effective Dates Status [...] pain, # 300 mL, 0 Refill(s), Pharmacy: [facility] [id number], 10 mL Oral q6hr,PRN:as needed for pain Start Date: 12/24/14 Status: Ordered Advair Diskus 250 mcg-50 mcg inhalation powder See Instructions, INHALE 1 PUFF BY INHALATION ROUTE 2 TIMES EVERY DAY IN THE MORNING AND EVENING APPROXIMATELY 12 HOURS APART, # 1 unknown unit, eRx: [facility] [id number], INHALE 1 PUFF BY INHALATION ROUTE 2 TIMES EVERY DAY IN THE MORNING AND EV... Start Date: 02/25/15 Status: Ordered Atrovent 42 mcg/inh nasal spray 2 sprays, Nasal, TID, # 2 Each, 5 Refill(s), Pharmacy: [facility] [id number] Start Date: 06/11/15 Stop Date: 06/11/16 Status: Ordered Carafate 1 g oral tablet 1 g 1 tabs, Oral, QID, Dissolve in water and drink, # 40 tabs, 0 Refill(s) Start Date: 08/31/15 Status: Ordered cetirizine 10 mg oral tablet 10 mg 1 tabs, Oral, Daily, # 30 tabs, 5 Refill(s), Pharmacy: [facility] [id number], 1 tabs Oral Daily Start Date: 09/01/15 Status: Ordered Linzess 290 mcg oral capsule 1 caps, Oral, Daily, # 30 caps, 6 Refill(s), Pharmacy: [facility] [id number], 1 caps Oral Daily Start Date: 02/24/15 Status: Ordered loratadine 10 mg oral tablet 10 mg, Oral, Daily, # 30 tabs, 5 Refill(s), Pharmacy: [facility] [address] , 10 mg Oral Daily Start Date: [...] # 1 Each, 1 Refill(s), [facility] : [facility] [address] Start Date: 06/11/15 Status: Ordered traZODone Oral, 0 Refill(s) Start Date: 04/05/15 Status: Ordered Viibryd Oral, Daily, 0 Refill(s) Start Date: 04/05/15 Status: Ordered Vitamin D3 1,000 Intl_Units, Oral, Daily, 0 Refill(s) Start Date: 10/26/14 Status: Ordered Results Chemistry Most recent to 1 oldest [Reference Range]: Sodium Lvl [136-144 138 mEq/L mEq/L] (05/22/15 3:46 PM) Potassium Lvl 3.9 mEq/L [3.6-5.1 mEq/L] (05/22/15 3:46 PM) Chloride [99-109 104 mEq/L mEq/L] (05/22/15 3:46 PM) CO2 [22-32 mEq/L] 28 mEq/L (05/22/15 3:46 PM) AGAP [3-20] 6 (05/22/15 3:46 PM) BUN [4-20 mg/dL] 5 mg/dL (05/22/15 3:46 PM) Glucose Lvl [70-100 90 mg/dL mg/dL] (05/22/15 3:46 PM) Creatinine Lvl 0.59 mg/dL [0.44-1.03 mg/dL] (05/22/15 3:46 PM) eGFR [>60] >60 1 (05/22/15 3:46 PM) Calcium Lvl 8.5 mg/dL [8.6-10.0 mg/dL] *LOW* (05/22/15 3:46 PM) 1Result Comment: Multiply eGFR results by 1.21 for race. Therapeutic Drug Monitoring Most recent to 1 oldest [Reference Range]: Levetiracetam <2.0 mcg/mL 1 [place] *LOW* (05/22/15 3:40 PM) 1Result Comment: Reference Range: 12.0 - 46.0 Test Performed by: [place] [address] Electric Meter Installer Helper: Yosvany Caldwell II, M.D., Ph.D. Urinalysis Most recent to 1 oldest [Reference Range]: UA Color Yellow (05/22/15 3:55 PM) UA Appear Clear (05/22/15 3:55 PM) UA pH [5.0-8.0] 7.0 (05/22/15 3:55 PM) UA Leuk Est Negative [Negative] (05/22/15 3:55 PM) UA Nitrite Negative [Negative] (05/22/15 3:55 PM) UA Protein Negative [Negative] (05/22/15 3:55 PM) UA Glucose Negative [Negative] (05/22/15 3:55 PM) UA Ketones Negative [Negative] (05/22/15 3:55 PM) UA Urobilinogen Negative [<1.0] (05/22/15 3:55 PM) UA Bili [Negative] Negative (05/22/15 3:55 PM) UA Blood [Negative] Negative (05/22/15 3:55 PM) UA Spec Grav 1.017 [1.003-1.030] (05/22/15 3:55 PM) Type Clean Catch (05/22/15 3:55 PM) Immunizations Vaccine Date Refusal Reason pneumococcal 23-polyvalent vaccine 11/18/14 Procedures Procedure Date Related Diagnosis Body Site Esophagogastroduodenoscopy Balloon Dilat1 02/14/15 Examination Under Anesthesia2 02/14/15 Adenoidectomy Bilateral tubal ligation Bronchoscope Cardiac catheterization, combined right and left heart Tonsillectomy Tympanostomy [place] tooth 1auto-populated from documented surgical case 2auto-populated from documented surgical case Social History Social History Type Response Smoking Status Never smoker Assessment and Plan No data available for this section
--- OUTSIDE RECORDS SUMMARY | 2017-01-20 22:13 | XMS REPORT | Referral Summary ---
Author Organization Unknown Address Unknown Phone Unavailable Care Team Providers Care Joggle Press Operator Name Role Phone Pardeep Poole Primary Care Physician [phone] Encounter VC Date(s): 11/02/14 - 11/02/[address] [place] [address] Discharge Diagnosis: Headache Discharge Disposition: Home or Self Care Attending Physician: Maia Strong MD Admitting Physician: Maia Strnog MD Vital Signs Most recent to 1 oldest [Reference Range]: Temperature Oral 36.8 degC [35.8-37.3 degC] (11/02/14 5:27 PM) Peripheral Pulse 98 bpm Rate [60-100 bpm] (11/02/14 5:27 PM) Respiratory Rate 18 br/min [14-20 br/min] (11/02/14 5:27 PM) Blood Pressure 101/72 mmHg [90-140/60-90 mmHg] (11/02/14 5:27 PM) Most recent to 1 oldest [Reference Range]: SpO2 95 % (11/02/14 5:27 PM) Problem List Condition Effective Dates Status [...] QIDACHS, # 1,200 mL, 6 Refill(s), Pharmacy: [facility] [id number], 10 mL Oral QIDACHS Start Date: 10/07/14 Status: Ordered cyclobenzaprine 10 mg oral tablet 1 tabs, Oral, BID, as needed for spasm, # 30 tabs, 1 Refill(s), Pharmacy: [facility] 22095, 1 tabs Oral BID,PRN:as needed for spasm Start Date: 10/16/14 Status: Ordered Flonase 50 mcg/inh nasal spray 1 sprays, Nasal, BID, # 16 g, 5 Refill(s), Pharmacy: [facility] 56698 Start Date: 09/30/14 Status: Ordered FLUoxetine See Instructions, 20 mg/5 mL Liquid 5 mL oral daily every evening, 0 Refill(s) Special Instructions: 20 mg/5 mL Liquid 5 mL oral daily every evening Start Date: 03/29/14 Status: Ordered Latuda 60 mg, Oral, Daily, 0 Refill(s) Start Date: 03/29/14 Status: Ordered levETIRAcetam 500 mg oral tablet See Instructions, TAKE 3 TABLETS BY MOUTH TWICE DAILY, # 180 tabs, 2 Refill(s), TRAN eRx: [facility] [id number], TAKE 3 TABLETS BY MOUTH TWICE DAILY Special Instructions: TAKE 3 TABLETS BY MOUTH TWICE DAILY Start Date: 11/01/14 Status: Ordered loratadine mg, 0 Refill(s) Start Date: 10/26/14 Status: Ordered mirtazapine Oral, Bedtime (once a day), 0 Refill(s) Start Date: 10/26/14 Status: Ordered NexIUM 40 mg oral delayed release capsule 1 caps, Oral, Daily, # 30 caps, 5 Refill(s), Pharmacy: [facility] 95068, 1 caps Oral Daily Start Date: 07/19/14 Status: Ordered ProAir HFA 90 mcg/inh inhalation aerosol See Instructions, 2-4 puffs every 4-6 hrs prn., # 1 Each, 1 Refill(s), Pharmacy : [facility] [address]87[address] Special Instructions: 2-4 puffs every 4-6 hrs [...] Adenoidectomy Bilateral tubal ligation Bronchoscope Tonsillectomy Tympanostomy [place] tooth Social History Social History Type Response Smoking Status Former smoker Assessment and Plan No data available for this section
--- OUTSIDE RECORDS SUMMARY | 2017-01-20 22:13 | XMS REPORT | Referral Summary ---
Author Organization Unknown Address Unknown Phone Unavailable Care Team Providers Care Brass Bobbin Winder Name Role Phone Pardeep Poole Primary Care Physician [phone] Encounter VC Date(s): 12/17/14 - 12/17/14 [facility], E , [facility] [address], [place] [address] Discharge Diagnosis: Epistaxis Discharge Disposition: Home or Self Care Attending Physician: Sarah Poole MD Admitting Physician: Sarah Poole MD Vital Signs Most recent to 1 oldest [Reference Range]: Temperature Oral 36.4 degC [35.8-37.3 degC] (12/17/14 2:23 PM) Peripheral Pulse 97 bpm Rate [60-100 bpm] (12/17/14 2:23 PM) Blood Pressure 126/68 mmHg [90-140/60-90 mmHg] (12/17/14 2:23 PM) Most recent to 1 oldest [Reference Range]: SpO2 97 % (12/17/14 2:23 PM) Problem List Condition Effective Dates Status [...] 1 unknown unit, 1 Refill(s) , eRx: [facility] [id number], INHALE 1 PUFF BY INHALATION ROUTE 2 TIMES EVERY DAY IN THE M... Special Instructions: INHALE 1 PUFF BY INHALATION ROUTE 2 TIMES EVERY DAY IN THE MORNING AND EVENING APPROXIMATELY 12 HOURS APART Start Date: 12/02/14 Status: Ordered Carafate 1 g/10 mL oral suspension 10 mL, Oral, QIDACHS, # 1,200 mL, 6 Refill(s), Pharmacy: [facility] [id number], 10 mL Oral QIDACHS Start Date: 10/07/14 Status: Ordered Flonase 50 mcg/inh nasal spray 2 sprays, Nasal, Daily, # 1 Each, 5 Refill(s), Pharmacy: [facility] [id number] Start Date: 12/03/14 Status: Ordered FLUoxetine 20 mg, Oral, qAM, 0 Refill(s) Start Date: 11/18/14 Status: Ordered HYDROcodone Oral, q12hr, 0 Refill(s) Start Date: 12/17/14 Status: Ordered Latuda 60 mg, Oral, qPM, [...] # 1 Each, 1 Refill(s), Pharmacy : [facility] [id number] Special Instructions: 2-4 puffs every 4-6 hrs [...] Adenoidectomy Bilateral tubal ligation Bronchoscope Tonsillectomy Tympanostomy [place] tooth Social History Social History Type Response Smoking Status Former smoker Assessment and Plan Extracted from: Title: Ambulatory Patient Education Author: Sarah Poole MD Date: Family Medicine Nosebleed Nosebleeds can be caused by many conditions including trauma, infections, polyps , foreign bodies, dry mucous membranes or climate, medications and air conditioning. Most nosebleeds occur in the front of the nose. It is because of this location that most nosebleeds can be controlled by pinching the nostrils gently and continuously. Do this for at least 10 to 20 minutes. The reason for this long continuous pressure is that you must hold it long enough for the blood to clot. If during that 10 to 20 minute time period, pressure is released , the process may have to be started again. The nosebleed may stop by itself, quit with pressure, need concentrated heating (cautery ) or stop with pressure from packing. HOME CARE INSTRUCTIONS If your nose was packed, try to maintain the pack inside until your caregiver removes it. If a gauze pack was used and it starts to fall out, gently replace or cut the end off. Do not cut if a balloon catheter was used to pack the nose. Otherwise, do not remove unless instructed. Avoid blowing your nose for 12 hours after treatment. This could dislodge the pack or clot and start bleeding again. If the bleeding starts again, sit up and bending forward, gently pinch the front half of your nose continuously for 20 minutes. If bleeding was caused by dry mucous membranes, cover the inside of your nose every morning with a petroleum or antibiotic ointment. Use your little fingertip as an applicator. Do this as needed during dry weather. This will keep the mucous membranes moist and allow them to heal. Maintain humidity in your home by using less air conditioning or using a humidifier. Do not use aspirin or medications which make bleeding more likely. Your caregiver can give you recommendations on this. Resume normal activities as able but try to avoid straining, lifting or bending at the waist for several days. If the nosebleeds become recurrent and the cause is unknown, your caregiver may suggest laboratory tests. SEEK IMMEDIATE MEDICAL CARE IF: Bleeding recurs and cannot be controlled. There is unusual bleeding from or bruising on other parts of the body. You have a fever. Nosebleeds continue. There is any worsening of the condition which originally brought you in. You become lightheaded, feel faint, become sweaty or vomit blood. MAKE SURE YOU: Understand these instructions. Will watch your condition. Will get help right away if you are not doing well or get worse. Document Released: 07/13/2006 Document Revised: 12/25/2012 Document Reviewed: Exit[employer] Patient Information 2014 [employer]. No follow up information was provided. Extracted from: Title: *Epistaxis Author: Sarah Poole MD Date: 12/17/14 Assessment/Plan 1.Epistaxis Recommend using nasal saline spray tid and apply vaseline to nares with Qtip hs. Also recommend humidifier in room while sleeping. Instructions written out and given to Teto. Notify us next week if issue continues.
--- OUTSIDE RECORDS SUMMARY | 2017-01-20 22:13 | XMS REPORT | Referral Summary ---
Author Author [facility] Organization [facility] Address Unknown Phone Unavailable Care Team Providers Care Developer Automatic Name Role Phone Imelda Martin Primary Care Physician [phone] Encounter VC Date(s): 03/20/15 - 03/20/15 [facility] [address] [place], [place] [address] Final: PNEUMONIA, ORGANISM UNSPECIFIED Final: DIAPHRAGMATIC HERNIA WITHOUT MENTION OF OBSTRUCTION OR GANGRENE Discharge Diagnosis: Pneumonia Discharge Diagnosis: Pneumonia Discharge Disposition: 01-Home or Self Care Attending Physician: Milton Magaña MD Admitting Physician: Milton Magaña MD Vital Signs Most recent to 1 oldest [Reference Range]: Temperature Oral 36.8 degC [35.8-37.3 degC] (03/20/15 5:55 PM) Peripheral Pulse 110 bpm Rate [60-100 bpm] *HI* (03/20/15 5:55 PM) Heart Rate Monitored 92 bpm [60-100 bpm] (03/20/15 7:30 PM) Respiratory Rate 20 br/min [14-20 br/min] (03/20/15 5:55 PM) Blood Pressure 113/82 mmHg [90-140/60-90 mmHg] (03/20/15 7:30 PM) Mean Arterial 93 mmHg Pressure, Cuff (03/20/15 7:30 PM) SpO2 95 % (03/20/15 7:30 PM) Problem List Condition Effective Dates [...] pain, # 300 mL, 0 Refill(s), Pharmacy: [facility] [address], 10 mL Oral q6hr,PRN:as needed for pain Start Date: 12/24/14 Status: Ordered Advair Diskus 250 mcg-50 mcg inhalation powder See Instructions, INHALE 1 PUFF BY INHALATION ROUTE 2 TIMES EVERY DAY IN THE MORNING AND EVENING APPROXIMATELY 12 HOURS APART, # 1 unknown unit, eRx: [facility] [id number], INHALE 1 PUFF BY INHALATION ROUTE 2 TIMES EVERY DAY IN THE MORNING AND EV... Start Date: 02/25/15 Status: Ordered albuterol 2.5 mg/3 mL (0.083%) inhalation solution 3 mL, Inhalation, q6hr (scheduled), # 60 Each, 1 Refill(s), Pharmacy: [facility] [id number], 3 mL Inhalation q6hr (scheduled) Start Date: 02/13/15 Status: Ordered Atrovent 42 mcg/inh nasal spray 2 sprays, Nasal, TID, # 2 Each, 5 Refill(s), Pharmacy: [facility] [id number] Start Date: 06/11/15 Stop Date: 06/11/16 Status: Ordered Carafate 1 g oral tablet 1 g 1 tabs, Oral, QID, Dissolve in water and drink, # 40 tabs, 0 Refill(s) Start Date: 08/31/15 Status: Ordered cetirizine 10 mg oral tablet 10 mg 1 tabs, Oral, Daily, # 30 tabs, 5 Refill(s), Pharmacy: [facility] [address], 1 tabs Oral Daily Start Date: 09/01/15 Status: Ordered levETIRAcetam 500 mg oral tablet See Instructions, TAKE 3 TABLETS BY MOUTH TWICE DAILY, # 180 tabs, 12 Refill(s) , eRx: [facility] [id number], TAKE 3 TABLETS BY MOUTH TWICE DAILY Start Date: 02/27/15 Status: Ordered Linzess 290 mcg oral capsule 1 caps, Oral, Daily, # 30 caps, 6 Refill(s), Pharmacy: [facility] [address]38[address], 1 caps Oral Daily Start Date: 02/24/15 Status: Ordered loratadine 10 mg oral tablet 10 mg, Oral, Daily, # 30 tabs, 5 Refill(s), Pharmacy: [facility] [address] , 10 mg Oral Daily Start Date: [...] 1 Each, 1 Refill(s), Pharmacy : [facility] [address] Start Date: 06/11/15 Status: Ordered traZODone Oral, [...] Range]: Sodium Venous 142 mEq/L [136-144 mEq/L] (03/20/15 6:53 PM) Potassium Venous 4.0 mEq/L 1 [3.6-5.1 mEq/L] (03/20/15 6:53 PM) Calcium Ionized 1.19 mmol/L Venous [1.19-1.41 (03/20/15 6:53 PM) mmol/L] Total CO2 Venous 24 mEq/L [25-29 mEq/L] *LOW* (03/20/15 6:53 PM) HGB Venous NPT 11.6 gm/dL [12.0-16.0 gm/dL] *LOW* (03/20/15 6:53 PM) HCT Venous 34.0 % [37.0-47.0 %] *LOW* (03/20/15 6:53 PM) Glucose Venous 104 mg/dL [70-100 mg/dL] *HI* (03/20/15 6:53 PM) BUN Venous [4-20] 10 (03/20/15 6:53 PM) Creatinine Venous 0.6 mg/dL [0.4-1.0 mg/dL] (03/20/15 6:53 PM) Venous CL [99-109 106 mEq/L mEq/L] (03/20/15 6:53 PM) [place], Darron 12 [3-20] (03/20/15 6:53 PM) 1Result Comment: This test was [...] combined right and left heart Tonsillectomy Tympanostomy [place] tooth 1auto-populated from documented surgical case 2auto-populated from documented surgical case Social History Social History Type Response Smoking Status Former smoker; Type: Cigarettes; Tobacco use per day: 1 Pack1 1quit 05/2015 Assessment and Plan No data available for this section
--- OUTSIDE RECORDS SUMMARY | 2017-01-20 22:13 | XMS REPORT | Referral Summary ---
Author Organization Unknown Address Unknown Phone Unavailable Care Team Providers Care Calcine Furnace Loader Name Role Phone Pardeep Poole Primary Care Physician [phone] Encounter VC Date(s): 01/07/15 - 01/07/15 [facility] [address] [place] [address] [place] ( 1 ) - Final: EPISTAXIS Final: Dehydration Final: TOBACCO USE DISORDER Discharge Diagnosis: Epistaxis Discharge Diagnosis: Dehydration Discharge Disposition: Home or Self Care Attending Physician: Yasmeen Schultz MD Admitting Physician: Yasmeen Schultz MD Vital Signs Most recent to 1 oldest [Reference Range]: Temperature Oral 36.8 degC [35.8-37.3 degC] (01/07/15 1:10 PM) Apical Heart Rate 81 bpm [60-100 bpm] (01/07/15 1:10 PM) Respiratory Rate 16 br/min [14-20 br/min] (01/07/15 1:10 PM) Blood Pressure 111/82 mmHg [90-140/60-90 mmHg] (01/07/15 1:10 PM) Most recent to 1 oldest [Reference Range]: SpO2 95 % (01/07/15 1:10 PM) Problem List Condition Effective Dates Status [...] pain, # 300 mL, 0 Refill(s), Pharmacy: [facility] 90082, 10 mL Oral q6hr,PRN:as needed for pain Start Date: 12/24/14 Status: Ordered Advair Diskus 250 mcg-50 mcg inhalation powder See Instructions, INHALE 1 PUFF BY INHALATION ROUTE 2 TIMES EVERY DAY IN THE MORNING AND EVENING APPROXIMATELY 12 HOURS APART, # 1 unknown unit, 1 Refill(s) , eRx: [facility] [id number], INHALE 1 PUFF BY INHALATION ROUTE 2 TIMES EVERY DAY IN THE M... Special Instructions: INHALE 1 PUFF BY INHALATION ROUTE 2 TIMES EVERY DAY IN THE MORNING AND EVENING APPROXIMATELY 12 HOURS APART Start Date: 12/02/14 Status: Ordered Flonase 50 mcg/inh nasal spray 2 sprays, Nasal, Daily, # 1 Each, 5 Refill(s), Pharmacy: [facility] [id number] Start Date: 12/03/14 Status: Ordered FLUoxetine 20 mg, Oral, qAM, 0 Refill(s) Start Date: 11/18/14 Status: Ordered imipramine 25 mg oral tablet 2 tabs, Oral, Bedtime (once a day), # 60 tabs, 3 Refill(s), Pharmacy: [facility] [id number], 2 tabs Oral Bedtime (once a day) [...] 0 Refill(s) Start Date: 11/18/14 Status: Ordered Strawberry 5 mg-325 mg oral tablet 1 tabs, [...] 1 oldest [Reference Range]: WBC [4.8-10.8 K/uL] 7.2 K/uL (01/07/15 1:48 PM) RBC [4.00-5.20 M/uL] 4.28 M/uL (01/07/15 1:48 PM) Hgb [12.0-16.0 11.8 gm/dL gm/dL] *LOW* (01/07/15 1:48 PM) Hct [37.0-47.0 %] 37.8 % (01/07/15 1:48 PM) MCV [82.0-99.0 fL] 88.3 fL (01/07/15 1:48 PM) MCH [27.0-32.0 pg] 27.6 pg (01/07/15 1:48 PM) MCHC [32.0-36.0 31.2 gm/dL gm/dL] *LOW* (01/07/15 1:48 PM) RDW [11.5-14.5 %] 16.1 % *HI* (01/07/15 1:48 PM) Platelet [150-400 298 K/uL K/uL] (01/07/15 1:48 PM) MPV [9.4-12.4 fL] 9.6 fL (01/07/15 1:48 PM) Chemistry Most recent to 1 oldest [Reference Range]: Sodium Lvl [136-144 136 mEq/L mEq/L] (01/07/15 1:48 PM) Potassium Lvl 4.3 mEq/L [3.6-5.1 mEq/L] (01/07/15 1:48 PM) Chloride [99-109 105 mEq/L mEq/L] (01/07/15 1:48 PM) CO2 [22-32 mEq/L] 26 mEq/L (01/07/15 1:48 PM) AGAP [3-20] 5 (01/07/15 1:48 PM) BUN [4-20 mg/dL] 7 mg/dL (01/07/15 1:48 PM) Glucose Lvl [70-100 95 mg/dL mg/dL] (01/07/15 1:48 PM) Creatinine Lvl 0.50 mg/dL [0.44-1.03 mg/dL] (01/07/15 1:48 PM) eGFR [>60] >60 2 (01/07/15 1:48 PM) Calcium Lvl 9.1 mg/dL [8.6-10.0 mg/dL] (01/07/15 1:48 PM) Albumin Lvl [3.5-4.8 3.7 gm/dL gm/dL] (01/07/15 1:48 PM) Total Protein 7.4 gm/dL [6.1-7.9 gm/dL] (01/07/15 1:48 PM) Globulin [1.9-4.3 3.7 gm/dL gm/dL] (01/07/15 1:48 PM) ALT [14-54 unit/L] 12 unit/L *LOW* (01/07/15 1:48 PM) AST [15-41 unit/L] 12 unit/L *LOW* (01/07/15 1:48 PM) Alk Phos [26-104 88 unit/L unit/L] (01/07/15 1:48 PM) Bili Total [0.2-1.2 0.4 mg/dL 1 mg/dL] (01/07/15 1:48 PM) 1Result Comment: Naproxen, specifically the metabolite O-desmethylnaproxen, may cause spurious elevation in Total Bilirubin levels. 2Result Comment: Multiply eGFR results by 1.21 for race. Immunizations Vaccine Date Refusal Reason pneumococcal 23-polyvalent vaccine 11/18/14 Procedures Procedure Date Related Diagnosis Body Site Adenoidectomy Bilateral tubal ligation Bronchoscope Tonsillectomy Tympanostomy [place] tooth Social History Social History Type Response Smoking Status Current every day smoker; Type: Cigarettes; Tobacco use per day: Pack Assessment and Plan No data available for this section
--- OUTSIDE RECORDS SUMMARY | 2017-01-20 22:13 | XMS REPORT | Referral Summary ---
Author Author [facility] Organization [facility] Address Unknown Phone Unavailable Care Team Providers Care Sap Security Architect Name Role Phone Imelda Martin Primary Care Physician [phone] Encounter VC Date(s): 11/04/16 - 11/04/16 [facility] [address] [place] [address] [phone] Discharge Diagnosis: Medically noncompliant Discharge Diagnosis: Acute UTI Discharge Disposition: 01-Home or Self Care Attending Physician: Vance Lei MD Admitting Physician: Vance Lei MD Vital Signs Most recent to 1 oldest [Reference Range]: Temperature Oral 36.4 degC [35.8-37.3 degC] (11/04/16 7:56 PM) Peripheral Pulse 83 bpm Rate [60-100 bpm] (11/04/16 7:56 PM) Respiratory Rate 22 br/min [14-20 br/min] *HI* (11/04/16 7:56 PM) Blood Pressure 126/87 mmHg [90-140/60-90 mmHg] (11/04/16 7:56 PM) SpO2 94 % (11/04/16 7:56 PM) Problem List Condition Effective Dates Status [...] BID, # 60 tabs, 0 Refill(s), Pharmacy: [facility] [id number], 1 tabs Oral BID Start Date: 07/12/16 [...] combined right and left heart Tonsillectomy Tympanostomy [place] tooth 1auto-populated from documented surgical case 2auto-populated from documented surgical case 3auto-populated from documented surgical case 4auto-populated from documented surgical case 5auto-populated from documented surgical case Social History Social History Type Response Smoking Status Never smoker Assessment and Plan No data available for this section
--- OUTSIDE RECORDS SUMMARY | 2017-01-20 22:13 | XMS REPORT | Referral Summary ---
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 Role Phone Imelda Martin Primary Care Physician [phone] Encounter Date(s): 10/20/15 - 10/20/15 [facility] [address] [place] [address] [phone] Discharge Diagnosis: Chronic abdominal pain Discharge Diagnosis: Nausea & vomiting Discharge Disposition: 01-Home or Self Care Attending Physician: Vance Lei MD Admitting Physician: Vance Lei MD Vital Signs Most recent to 1 oldest [Reference Range]: Temperature Oral 36.7 degC [35.8-37.3 degC] (10/20/15 7:26 PM) Peripheral Pulse 85 bpm Rate [60-100 bpm] (10/20/15 9:05 PM) Respiratory Rate 16 br/min [14-20 br/min] (10/20/15 9:05 PM) Blood Pressure 117/76 mmHg [90-140/60-90 mmHg] (10/20/15 9:05 PM) SpO2 99 % (10/20/15 9:05 PM) Problem List Condition Effective Dates Status [...] pain, # 300 mL, 0 Refill(s), Pharmacy: [facility] [id number], 10 mL Oral q6hr,PRN:as needed for pain Start Date: 12/24/14 Status: Ordered Advair Diskus 250 mcg-50 mcg inhalation powder See Instructions, INHALE 1 PUFF BY INHALATION ROUTE 2 TIMES EVERY DAY IN THE MORNING AND EVENING APPROXIMATELY 12 HOURS APART, # 1 unknown unit, eRx: [facility] [id number], INHALE 1 PUFF BY INHALATION ROUTE 2 TIMES EVERY DAY IN THE MORNING AND EV... Start Date: 02/25/15 Status: Ordered Atrovent 42 mcg/inh nasal spray 2 sprays, Nasal, TID, # 2 Each, 5 Refill(s), Pharmacy: [facility] [id number] Start Date: 06/11/15 Stop Date: 06/11/16 Status: Ordered Carafate 1 g oral tablet 1 g 1 tabs, Oral, QID, Dissolve in water and drink, # 40 tabs, 0 Refill(s) Start Date: 08/31/15 Status: Ordered cetirizine 10 mg oral tablet 10 mg 1 tabs, Oral, Daily, # 30 tabs, 5 Refill(s), Pharmacy: [facility] 99686, 1 tabs Oral Daily Start Date: 09/01/15 Status: Ordered Linzess 290 mcg oral capsule 1 caps, Oral, Daily, # 30 caps, 6 Refill(s), Pharmacy: [facility] 21533, 1 caps Oral Daily Start Date: 02/24/15 Status: Ordered loratadine 10 mg oral tablet 10 mg, Oral, Daily, # 30 tabs, 5 Refill(s), Pharmacy: [facility] [id number] , 10 mg Oral Daily Start Date: [...] Refill(s), Pharmacy : [facility] [address] Start Date: 06/11/15 Status: Ordered traZODone Oral, 0 Refill(s) Start Date: 04/05/15 Status: Ordered Viibryd Oral, Daily, 0 Refill(s) Start Date: 04/05/15 Status: Ordered Vitamin D3 1,000 Intl_Units, Oral, Daily, 0 Refill(s) Start Date: 10/26/14 Status: Ordered Results Hematology Most recent to 1 oldest [Reference Range]: WBC [4.8-10.8 6.9 10*3/uL 10*3/uL] (10/20/15 8:18 PM) RBC [4.00-5.20] 4.65 (10/20/15 8:18 PM) Hgb [12.0-16.0 11.2 gm/dL gm/dL] *LOW* (10/20/15 8:18 PM) Hct [37.0-47.0 %] 37.1 % (10/20/15 8:18 PM) MCV [82.0-99.0 fL] 79.8 fL *LOW* (10/20/15 8:18 PM) MCH [27.0-32.0 pg] 24.1 pg *LOW* (10/20/15 8:18 PM) MCHC [32.0-36.0 30.2 gm/dL gm/dL] *LOW* (10/20/15 8:18 PM) RDW [11.5-14.5 %] 19.6 % *HI* (10/20/15 8:18 PM) Platelet [150-400 252 10*3/uL 10*3/uL] (10/20/15 8:18 PM) MPV [9.4-12.4 fL] 9.7 fL (10/20/15 8:18 PM) Immature 0.1 % Granulocytes (10/20/15 8:18 PM) [0.0-1.0 %] Neutrophils [51-75 61 % %] (10/20/15 8:18 PM) Lymphocytes [20-46 25 % %] (10/20/15 8:18 PM) Monocytes [4-11 %] 8 % (10/20/15 8:18 PM) Eosinophils [0-4 %] 4 % (10/20/15 8:18 PM) Basophils [0-2 %] 1 % (10/20/15 8:18 PM) Neutro Absolute 4.22 10*3 [1.90-7.00 10*3] (10/20/15 8:18 PM) Lymph Absolute 1.74 10*3 [0.80-3.30 10*3] (10/20/15 8:18 PM) [place] Absolute 0.58 10*3 [0.30-1.00 10*3] (10/20/15 8:18 PM) Eos Absolute 0.29 10*3 [0.00-0.50 10*3] (10/20/15 8:18 PM) Baso Absolute 0.04 10*3 [0.00-0.20 10*3] (10/20/15 8:18 PM) Nucleated RBC 0.0 /100 WBC Automated [0 /100 (10/20/15 8:18 PM) WBC] Chemistry Most recent to 1 oldest [Reference Range]: Sodium Lvl [136-144 135 mEq/L mEq/L] *LOW* (10/20/15 8:18 PM) Potassium Lvl 3.7 mEq/L [3.6-5.1 mEq/L] (10/20/15 8:18 PM) Chloride [99-109 104 mEq/L mEq/L] (10/20/15 8:18 PM) CO2 [22-32 mEq/L] 24 mEq/L (10/20/15 8:18 PM) AGAP [3-20] 7 (10/20/15 8:18 PM) BUN [4-20 mg/dL] 11 mg/dL (10/20/15 8:18 PM) Glucose Lvl [70-100 97 mg/dL mg/dL] (10/20/15 8:18 PM) Creatinine Lvl 0.66 mg/dL [0.44-1.03 mg/dL] (10/20/15 8:18 PM) eGFR [>60] >60 1 (10/20/15 8:18 PM) Calcium Lvl 9.0 mg/dL [8.6-10.0 mg/dL] (10/20/15 8:18 PM) Albumin Lvl [3.5-4.8 3.5 gm/dL gm/dL] (10/20/15 8:18 PM) Total Protein 7.4 gm/dL [6.1-7.9 gm/dL] (10/20/15 8:18 PM) Globulin [1.9-4.3 3.9 gm/dL gm/dL] (10/20/15 8:18 PM) ALT [14-54 U/L] 15 U/L (10/20/15 8:18 PM) AST [15-41 U/L] 18 U/L (10/20/15 8:18 PM) Alk Phos [26-104 74 U/L U/L] (10/20/15 8:18 PM) Bili Total [0.2-1.2 0.5 mg/dL 2 mg/dL] (10/20/15 8:18 PM) Lipase Lvl [8-48 30 U/L U/L] (10/20/15 8:18 PM) U Beta hCG Ql Negative (10/20/15 8:12 PM) 1Result Comment: Multiply eGFR results by 1.21 for race. 2Result Comment: Naproxen, specifically the metabolite O-desmethylnaproxen, may cause spurious elevation in Total Bilirubin levels. Urinalysis Most recent to 1 oldest [Reference Range]: UA Color Yellow (10/20/15 8:12 PM) UA Appear Clear (10/20/15 8:12 PM) UA pH [5.0-8.0] 6.0 (10/20/15 8:12 PM) UA Leuk Est Trace [Negative] *ABN* (10/20/15 8:12 PM) UA Nitrite Negative [Negative] (10/20/15 8:12 PM) UA Protein Negative [Negative] (10/20/15 8:12 PM) UA Glucose Negative [Negative] (10/20/15 8:12 PM) UA Ketones Negative [Negative] (10/20/15 8:12 PM) UA Urobilinogen Negative [<1.0] (10/20/15 8:12 PM) UA Bili [Negative] Negative (10/20/15 8:12 PM) UA Blood [Negative] Negative (10/20/15 8:12 PM) UA Spec Grav 1.025 [1.003-1.030] (10/20/15 8:12 PM) Type Other (10/20/15 8:12 PM) UA WBC [0-4] 2-5 (10/20/15 8:12 PM) UA RBC [0-2] 0-2 (10/20/15 8:12 PM) Epithelial Cells 2-5 (10/20/15 8:12 PM) UA Mucous Present (10/20/15 8:12 PM) Immunizations Vaccine Date Refusal Reason pneumococcal 23-polyvalent vaccine 11/18/14 Procedures Procedure Date Related Diagnosis Body Site Esophagogastroduodenoscopy Balloon Dilat1 02/14/15 Examination Under Anesthesia2 02/14/15 Adenoidectomy Bilateral tubal ligation Bronchoscope Cardiac catheterization, combined right and left heart Tonsillectomy Tympanostomy [place] tooth 1auto-populated from documented surgical case 2auto-populated from documented surgical case Social History Social History Type Response Smoking Status Former smoker; Type: Cigarettes; Tobacco use per day: 1 Pack1 1quit 05/2015 Assessment and Plan No data available for this section
--- OUTSIDE RECORDS SUMMARY | 2017-01-20 22:14 | XMS REPORT | Referral Summary ---
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 Role Phone [facility] Primary Care Physician Unavailable Encounter [facility] [id number] Date(s): 01/29/16 - 01/30/16 [facility] [address], [place] [address] Discharge Diagnosis: Muscle strain of left upper back Discharge Disposition: 01-Home or Self Care Attending Physician: Ari Neville DO Admitting Physician: Ari Neville DO Referring Physician: Self Referred, X Vital Signs Most recent to 1 oldest [Reference Range]: Temperature Oral 36.6 degC [35.8-37.3 degC] (01/29/16 9:52 PM) Peripheral Pulse 94 bpm Rate [60-100 bpm] (01/29/16 9:52 PM) Respiratory Rate 18 br/min [14-20 br/min] (01/29/16 9:52 PM) Blood Pressure 104/71 mmHg [90-140/60-90 mmHg] (01/29/16 9:52 PM) SpO2 98 % (01/29/16 9:52 PM) Problem List Condition Effective Dates Status [...] pain, # 300 mL, 0 Refill(s), Pharmacy: [facility] [address], 10 mL Oral q6hr,PRN:as needed for pain [...] HOURS APART, # 1 unknown unit, eRx: [facility] [id number], INHALE 1 PUFF BY INHALATION ROUTE 2 [...] Daily, # 30 tabs, 5 Refill(s), Pharmacy: [facility] [address], 1 tabs Oral Daily Start Date: 09/01/15 [...] Daily, # 1 Each, 5 Refill(s), Pharmacy: [facility] [address] Start Date: 12/12/15 Status: Ordered ibuprofen 800 mg oral tablet 800 mg 1 tabs, Oral, TID, Pain, # 15 tabs, 0 Refill(s) Start Date: 12/07/15 Status: Ordered loratadine 0 Refill(s) Start Date: 01/23/16 Status: Ordered loratadine 10 mg oral tablet 10 mg, Oral, Daily, # 30 tabs, 5 Refill(s), [facility] [address] , 10 mg Oral Daily Start Date: 01/14/15 Status: Ordered meloxicam 15 mg oral tablet 15 mg 1 tabs, Oral, Daily, # 30 tabs, 0 Refill(s) Start Date: 12/12/15 Status: Ordered Mobic 7.5 mg oral tablet 7.5 mg 1 tabs, Oral, Daily, # 7 tabs, 0 Refill(s), Pharmacy: [facility], 1 tabs Oral Daily,x7 [...] # 1 Each, 1 Refill(s), Pharmacy : [facility] [address] Start Date: 06/11/15 Status: Ordered Robitussin DM To Go 20 mg-200 mg/10 mL oral liquid 10 mL, Oral, q4hr, as needed for cough, # 100 mL, 0 Refill(s), Pharmacy: [facility] [address] Start Date: 12/12/15 Status: Ordered Singulair qPM, 0 Refill(s) Start Date: 01/23/16 Status: Ordered Vitamin D3 1,000 Intl_Units, Oral, Daily, 0 Refill(s) Start Date: 10/26/14 Status: Ordered Results Urinalysis Most recent to 1 oldest [Reference Range]: UA Color Yellow (01/29/16 11:58 PM) UA Appear Clear (01/29/16 11:58 PM) UA pH [5.0-8.0] 8.0 (01/29/16 11:58 PM) UA Leuk Est Trace [Negative] *ABN* (01/29/16 11:58 PM) UA Nitrite Negative [Negative] (01/29/16 11:58 PM) UA Protein Negative [Negative] (01/29/16 11:58 PM) UA Glucose Negative [Negative] (01/29/16 11:58 PM) UA Ketones Negative [Negative] (01/29/16 11:58 PM) UA Urobilinogen Negative [<1.0] (01/29/16 11:58 PM) UA Bili [Negative] Negative (01/29/16 11:58 PM) UA Blood [Negative] Pos 1+ *ABN* (01/29/16 11:58 PM) UA Spec Grav 1.010 [1.003-1.030] (01/29/16 11:58 PM) Type Clean Catch (01/29/16 11:58 PM) UA WBC [0-4] 5-10 *ABN* (01/29/16 11:58 PM) UA RBC [0-2] 2-5 (01/29/16 11:58 PM) Epithelial Cells 0-2 (01/29/16 11:58 PM) UA Mucous Present (01/29/16 11:58 PM) Immunizations Vaccine Date Refusal Reason pneumococcal 23-polyvalent vaccine 11/18/14 Procedures Procedure Date Related Diagnosis Body Site Esophagogastroduodenoscopy Foreign Body 01/06/16 Removal1 Procedure with Anesthesia2 01/06/16 Esophagogastroduodenoscopy Balloon Dilat3 02/14/15 Examination Under Anesthesia4 02/14/15 Adenoidectomy Bilateral tubal ligation Bronchoscope Cardiac catheterization, combined right and left heart Tonsillectomy Tympanostomy [place] tooth 1auto-populated from documented surgical case 2auto-populated [...]
--- OUTSIDE RECORDS SUMMARY | 2017-01-20 22:14 | XMS REPORT | Referral Summary ---
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 Name Role Phone Imelda Maritn Primary Care Physician [phone] Encounter [facility] [id number] Date(s): 02/22/15 - 02/23/15 [facility] [address] [place] [address] [phone] Discharge Diagnosis: Chronic abdominal pain Final: ABDOMINAL PAIN, UNSPECIFIED SITE Final: Other chronic pain Final: DIAPHRAGMATIC HERNIA WITHOUT MENTION OF OBSTRUCTION OR GANGRENE Discharge Disposition: 01-Home or Self Care Attending Physician: Chris Harris MD Admitting Physician: Chris Harris MD Vital Signs Most recent to 1 oldest [Reference Range]: Temperature Oral 36.7 degC [35.8-37.3 degC] (02/22/15 9:56 PM) Peripheral Pulse 79 bpm Rate [60-100 bpm] (02/23/15 2:51 AM) Heart Rate Monitored 75 bpm [60-100 bpm] (02/23/15 1:30 AM) Respiratory Rate 18 br/min [14-20 br/min] (02/23/15 2:51 AM) Blood Pressure 112/80 mmHg [90-140/60-90 mmHg] (02/23/15 2:51 AM) Mean Arterial 93 mmHg Pressure, Cuff (02/23/15 1:30 AM) SpO2 98 % (02/23/15 2:51 AM) Problem List Condition Effective Dates Status [...] pain, # 300 mL, 0 Refill(s), Pharmacy: [facility] 49205, 10 mL Oral q6hr,PRN:as needed for pain Start Date: 12/24/14 Status: Ordered Advair Diskus 250 mcg-50 mcg inhalation powder See Instructions, INHALE 1 PUFF BY INHALATION ROUTE 2 TIMES EVERY DAY IN THE MORNING AND EVENING APPROXIMATELY 12 HOURS APART, # 1 unknown unit, eRx: [facility] [id number], INHALE 1 PUFF BY INHALATION ROUTE 2 TIMES EVERY DAY IN THE MORNING AND EV... Start Date: 02/25/15 Status: Ordered albuterol 2.5 mg/3 mL (0.083%) inhalation solution 3 mL, Inhalation, q6hr (scheduled), # 60 Each, 1 Refill(s), Pharmacy: [facility] 25693, 3 mL Inhalation q6hr (scheduled) Start Date: 02/13/15 Status: Ordered Atrovent 42 mcg/inh nasal spray 2 sprays, Nasal, TID, # 2 Each, 5 Refill(s), Pharmacy: [facility] 52394 Start Date: 06/11/15 Stop Date: 06/11/16 Status: Ordered Carafate 1 g oral tablet 1 g 1 tabs, Oral, QID, Dissolve in water and drink, # 40 tabs, 0 Refill(s) Start Date: 08/31/15 Status: Ordered cetirizine 10 mg oral tablet 10 mg 1 tabs, Oral, Daily, # 30 tabs, 5 Refill(s), Pharmacy: [facility] 48543, 1 tabs Oral Daily Start Date: 09/01/15 Status: Ordered Chloraseptic [place] 1.4% topical spray 5 sprays, Oral, q2hr, # 10 mL, 0 Refill(s) Start Date: 08/11/15 Stop Date: 08/11/16 Status: Ordered levETIRAcetam 500 mg oral tablet See Instructions, TAKE 3 TABLETS BY MOUTH TWICE DAILY, # 180 tabs, 12 Refill(s) , eRx: [facility] [id number], TAKE 3 TABLETS BY MOUTH TWICE DAILY Start Date: 02/27/15 Status: Ordered Levsin 0.125 mg oral tablet 0.125 mg 1 tabs, Oral, QID, # 15 tabs, 0 Refill(s) Start Date: 08/27/15 Status: Ordered Linzess 290 mcg oral capsule 1 caps, Oral, Daily, # 30 caps, 6 Refill(s), Pharmacy: [facility] 14741, 1 caps Oral Daily Start Date: 02/24/15 Status: Ordered loratadine 10 mg oral tablet 10 mg, Oral, Daily, # 30 tabs, 5 Refill(s), Pharmacy: [facility] 64673 , 10 mg Oral Daily Start Date: [...] # 1 Each, 1 Refill(s), Pharmacy : [facility] [address] Start Date: 06/11/15 Status: Ordered traZODone Oral, [...] [Reference Range]: WBC [4.8-10.8 8.2 10*3/uL 10*3/uL] (02/23/15 12:04 AM) RBC [4.00-5.20 4.27 10*6/uL 10*6/uL] (02/23/15 12:04 AM) Hgb [12.0-16.0 11.8 gm/dL gm/dL] *LOW* (02/23/15 12:04 AM) Hct [37.0-47.0 %] 37.1 % (02/23/15 12:04 AM) MCV [82.0-99.0 fL] 86.9 fL (02/23/15 12:04 AM) MCH [27.0-32.0 pg] 27.6 pg (02/23/15 12:04 AM) MCHC [32.0-36.0 31.8 gm/dL gm/dL] *LOW* (02/23/15 12:04 AM) RDW [11.5-14.5 %] 16.4 % *HI* (02/23/15 12:04 AM) Platelet [150-400 247 10*3/uL 10*3/uL] (02/23/15 12:04 AM) MPV [9.4-12.4 fL] 9.1 fL *LOW* (02/23/1504 AM) Immature 0.1 % Granulocytes (02/23/15) [0.0-1.0 %] Neutrophils [51-75 65 % %] (02/23/1504 AM) Lymphocytes [20-46 28 % %] (02/23/15 AM) Monocytes [4-11 %] 6 % (02/23/15 AM) Eosinophils [0-4 %] 2 % (02/23/15 AM) Basophils [0-2 %] 0 % (02/23/15 AM) Neutro Absolute 5.31 10*3 [1.90-7.00 10*3] (02/23/15 AM) Lymph Absolute 2.27 10*3 [0.80-3.30 10*3] (02/23/15 AM) [place] Absolute 0.49 10*3 [0.30-1.00 10*3] (02/23/15 AM) Eos Absolute 0.15 10*3 [0.00-0.50 10*3] (02/23/1504 AM) Baso Absolute 0.01 10*3 [0.00-0.20 10*3] (02/23/15 AM) Nucleated RBC 0.0 /100 WBC Automated [0 /100 (02/23/15: AM) WBC] Chemistry Most recent to 1 oldest [Reference Range]: Sodium Lvl [136-144 139 mEq/L mEq/L] (02/23/15 AM) Potassium Lvl 4.1 mEq/L [3.6-5.1 mEq/L] (02/23/1504 AM) Chloride [99-109 106 mEq/L mEq/L] (02/23/15 AM) CO2 [22-32 mEq/L] 27 mEq/L (02/23/1504 AM) AGAP [3-20] 6 (02/23/1504 AM) BUN [4-20 mg/dL] 9 mg/dL (02/23/1504 AM) Glucose Lvl [70-100 87 mg/dL mg/dL] (02/23/15 12:04 AM) Creatinine Lvl 0.66 mg/dL [0.44-1.03 mg/dL] (02/23/15 12:04 AM) eGFR [>60] >60 1 (02/23/15 12:04 AM) Calcium Lvl 9.2 mg/dL [8.6-10.0 mg/dL] (02/23/15:04 AM) Albumin Lvl [3.5-4.8 3.4 gm/dL gm/dL] *LOW* (02/23/1504 AM) Total Protein 7.3 gm/dL [6.1-7.9 gm/dL] (02/23/15:04 AM) Globulin [1.9-4.3 3.9 gm/dL gm/dL] (02/23/15 12:04 AM) ALT [14-54 U/L] 12 U/L *LOW* (02/23/15:04 AM) AST [15-41 U/L] 15 U/L (02/23/15:04 AM) Alk Phos [26-104 88 U/L U/L] (02/23/15 12:04 AM) Bili Total [0.2-1.2 0.3 mg/dL 2 mg/dL] (02/23/15 12:04 AM) Lipase Lvl [8-48 25 U/L U/L] (02/23/15 12:04 AM) 1Result Comment: Multiply eGFR results by 1.21 for race. 2Result Comment: Naproxen, specifically the metabolite O-desmethylnaproxen, may cause spurious elevation in Total Bilirubin levels. Urinalysis Most recent to 1 oldest [Reference Range]: UA Color Lt Yellow (02/22/15 11:40 PM) UA Appear Turbid *ABN* (02/22/15 11:40 PM) UA pH [5.0-8.0] 7.0 (02/22/15 11:40 PM) UA Leuk Est Pos 1+ [Negative] *ABN* (02/22/15 11:40 PM) UA Nitrite Negative [Negative] (02/22/15 11:40 PM) UA Protein Trace [Negative] *ABN* (02/22/15 11:40 PM) UA Glucose Negative [Negative] (02/22/15 11:40 PM) UA Ketones Negative [Negative] (02/22/15 11:40 PM) UA Urobilinogen Negative [<1.0] (02/22/15 11:40 PM) UA Bili [Negative] Negative (02/22/15 11:40 PM) UA Blood [Negative] Pos 3+ *ABN* (02/22/15 11:40 PM) UA Spec Grav 1.019 [1.003-1.030] (02/22/15 11:40 PM) Type Voided (02/22/15 11:40 PM) UA WBC [0-4] 2-5 (02/22/15 11:40 PM) UA RBC [0-2 /HPF] >50 /HPF *ABN* (02/22/15 11:40 PM) Epithelial Cells 0-2 (02/22/15 11:40 PM) UA Bacteria Rare (02/22/15 11:40 PM) UA Mucous Present (02/22/15 11:40 PM) Immunizations Vaccine Date Refusal Reason pneumococcal 23-polyvalent vaccine 11/18/14 Procedures Procedure Date Related Diagnosis Body Site Esophagogastroduodenoscopy Balloon Dilat1 02/14/15 Examination Under Anesthesia2 02/14/15 Adenoidectomy Bilateral tubal ligation Bronchoscope Cardiac catheterization, combined right and left heart Tonsillectomy Tympanostomy [place] tooth 1auto-populated from documented surgical case 2auto-populated from documented surgical case Social History Social History Type Response Smoking Status Former smoker; Type: Cigarettes; Tobacco use per day: 1 Pack1 1quit 05/2015 Assessment and Plan No data available for this section
--- OUTSIDE RECORDS SUMMARY | 2017-01-20 22:14 | XMS REPORT | Referral Summary ---
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 Phone Imelda Martin Primary Care Physician [phone] Encounter [facility] [id number] Date(s): 02/19/15 - 02/19/15 [facility] [address] [place] [address] Discharge Diagnosis: Groin strain Final: PELVIC SPRAIN Final: TOBACCO USE DISORDER Discharge Disposition: 01-Home or Self Care Attending Physician: Jamison Reyez DO Admitting Physician: Jamison Reyez DO Referring Physician: Self Referred, X Vital Signs Most recent to 1 oldest [Reference Range]: Temperature Oral 36.6 degC [35.8-37.3 degC] (02/19/15 8:34 PM) Peripheral Pulse 96 bpm Rate [60-100 bpm] (02/19/15 8:34 PM) Respiratory Rate 16 br/min [14-20 br/min] (02/19/15 8:34 PM) Blood Pressure 100/74 mmHg [90-140/60-90 mmHg] (02/19/15 8:34 PM) SpO2 97 % (02/19/15 8:34 PM) Problem List Condition Effective Dates Status [...] pain, # 300 mL, 0 Refill(s), Pharmacy: [email or web address] [address], 10 mL Oral q6hr,PRN:as needed for pain Start Date: 12/24/14 Status: Ordered Advair Diskus 250 mcg-50 mcg inhalation powder See Instructions, INHALE 1 PUFF BY INHALATION ROUTE 2 TIMES EVERY DAY IN THE MORNING AND EVENING APPROXIMATELY 12 HOURS APART, # 1 unknown unit, eRx: [email or web address] [id number], INHALE 1 PUFF BY INHALATION ROUTE 2 TIMES EVERY DAY IN THE MORNING AND EV... Start Date: 02/25/15 Status: Ordered albuterol 2.5 mg/3 mL (0.083%) inhalation solution 3 mL, Inhalation, q6hr (scheduled), # 60 Each, 1 Refill(s), Pharmacy: [email or web address] [address]86, 3 mL Inhalation q6hr (scheduled) Start Date: 02/13/15 Status: Ordered Atrovent 42 mcg/inh nasal spray 2 sprays, Nasal, TID, # 2 Each, 5 Refill(s), Pharmacy: [email or web address] [address]87 Start Date: 06/11/15 Stop Date: 06/11/16 Status: [...] # 180 tabs, 12 Refill(s) , eRx: [email or web address] [id number], TAKE 3 TABLETS BY MOUTH TWICE DAILY Start Date: 02/27/15 Status: Ordered Levsin 0.125 mg oral tablet 0.125 mg 1 tabs, Oral, QID, # 15 tabs, 0 Refill(s) Start Date: 08/27/15 Status: Ordered Linzess 290 mcg oral capsule 1 caps, Oral, Daily, # 30 caps, 6 Refill(s), [facility]acy: [email or web address] [address], 1 caps Oral Daily Start Date: 02/24/15 Status: Ordered loratadine 10 mg oral tablet 10 mg, Oral, Daily, # 30 tabs, 5 Refill(s), Pharmacy: [email or web address] 11792 , 10 mg Oral Daily Start Date: [...] # 1 Each, 1 Refill(s), Pharmacy : [email or web address] [address] Start Date: 06/11/15 Status: Ordered traZODone Oral, [...] combined right and left heart Tonsillectomy Tympanostomy [place] tooth 1auto-populated from documented surgical case 2auto-populated from documented surgical case Social History Social History Type Response Smoking Status Former smoker; Type: Cigarettes; Tobacco use per day: 1 Pack1 1quit 05/2015 Assessment and Plan No data available for this section
--- OUTSIDE RECORDS SUMMARY | 2017-01-20 22:14 | XMS REPORT | Referral Summary ---
Author Author [facility] Organization [facility] Address Unknown Phone Unavailable Care Team Providers Care Seo Coordinator Name Role Phone [place] [facility] Primary Care Physician Unavailable Encounter TERRELL [id number] Date(s): 07/09/15 - 07/09/15 [facility] [address] [place], [place] [address] Discharge Diagnosis: Pneumonia Final: PNEUMONIA, ORGANISM UNSPECIFIED Final: ABDOMINAL PAIN, RIGHT LOWER QUADRANT Discharge Diagnosis: Abdominal pain Discharge Disposition: 01-Home or Self Care Attending Physician: Sheila Trujillo MD Admitting Physician: Sheila Trujillo MD Vital Signs Most recent to 1 oldest [Reference Range]: Temperature Oral 37.1 degC [35.8-37.3 degC] (07/09/15 6:00 PM) Peripheral Pulse 100 bpm Rate [60-100 bpm] (07/09/15 9:03 PM) Heart Rate Monitored 107 bpm [60-100 bpm] *HI* (07/09/15 8:12 PM) Respiratory Rate 18 br/min [14-20 br/min] (07/09/15 9:03 PM) Blood Pressure 110/80 mmHg [90-140/60-90 mmHg] (07/09/15 9:03 PM) Mean Arterial 93 mmHg Pressure, Cuff (07/09/15 8:12 PM) SpO2 100 % (07/09/15 9:03 PM) Problem List Condition Effective Dates Status [...] pain, # 300 mL, 0 Refill(s), Pharmacy: [facility] [id number], 10 mL Oral q6hr,PRN:as needed for pain Start Date: 12/24/14 Status: Ordered Advair Diskus 250 mcg-50 mcg inhalation powder See Instructions, INHALE 1 PUFF BY INHALATION ROUTE 2 TIMES EVERY DAY IN THE MORNING AND EVENING APPROXIMATELY 12 HOURS APART, # 1 unknown unit, eRx: [facility] [id number], INHALE 1 PUFF BY INHALATION ROUTE 2 [...] Daily, # 30 tabs, 5 Refill(s), Pharmacy: [facility] [id number], 1 tabs Oral Daily Start Date: 09/01/15 [...] Daily, # 1 Each, 5 Refill(s), Pharmacy: [facility] [id number] Start Date: 12/12/15 Status: Ordered ibuprofen 800 mg oral tablet 800 mg 1 tabs, Oral, TID, Pain, # 15 tabs, 0 Refill(s) Start Date: 12/07/15 Status: Ordered loratadine 10 mg oral tablet 10 mg, Oral, Daily, # 30 tabs, 5 Refill(s), Pharmacy: [facility] [id number] , 10 mg Oral Daily Start Date: [...] # 1 Each, 1 Refill(s), Pharmacy : [facility] [id number] Start Date: 06/11/15 Status: Ordered Robitussin DM To Go 20 mg-200 mg/10 mL oral liquid 10 mL, Oral, q4hr, as needed for cough, # 100 mL, 0 Refill(s), Pharmacy: [facility] [id number] Start Date: 12/12/15 Status: Ordered Vitamin D3 1,000 Intl_Units, Oral, Daily, 0 Refill(s) Start Date: 10/26/14 Status: Ordered Results Hematology Most recent to 1 oldest [Reference Range]: WBC [4.8-10.8 14.3 10*3/uL 10*3/uL] *HI* (07/09/15 6:55 PM) RBC [4.00-5.20] 4.38 (07/09/15 6:55 PM) Hgb [12.0-16.0 10.6 gm/dL gm/dL] *LOW* (07/09/15 6:55 PM) Hct [37.0-47.0 %] 34.7 % *LOW* (07/09/15 6:55 PM) MCV [82.0-99.0 fL] 79.2 fL *LOW* (07/09/15 6:55 PM) MCH [27.0-32.0 pg] 24.2 pg *LOW* (07/09/15 6:55 PM) MCHC [32.0-36.0 30.5 gm/dL gm/dL] *LOW* (07/09/15 6:55 PM) RDW [11.5-14.5 %] 17.8 % *HI* (07/09/15 6:55 PM) Platelet [150-400 298 10*3/uL 10*3/uL] (07/09/15 6:55 PM) MPV [9.4-12.4 fL] 9.5 fL (07/09/15 6:55 PM) Immature 0.2 % Granulocytes (07/09/15 6:55 PM) [0.0-1.0 %] Neutrophils [51-75 82 % %] *HI* (07/09/15 6:55 PM) Lymphocytes [20-46 14 % %] *LOW* (07/09/15 6:55 PM) Monocytes [4-11 %] 4 % (07/09/15 6:55 PM) Eosinophils [0-4 %] 0 % (07/09/15 6:55 PM) Basophils [0-2 %] 0 % (07/09/15 6:55 PM) Neutro Absolute 11.67 10*3 [1.90-7.00 10*3] *HI* (07/09/15 6:55 PM) Lymph Absolute 1.94 10*3 [0.80-3.30 10*3] (07/09/15 6:55 PM) [place] Absolute 0.56 10*3 [0.30-1.00 10*3] (07/09/15 6:55 PM) Eos Absolute 0.04 10*3 [0.00-0.50 10*3] (07/09/15 6:55 PM) Baso Absolute 0.02 10*3 [0.00-0.20 10*3] (07/09/15 6:55 PM) Chemistry Most recent to 1 oldest [Reference Range]: Sodium Lvl [136-144 137 mEq/L mEq/L] (07/09/15 6:55 PM) Potassium Lvl 3.2 mEq/L [3.6-5.1 mEq/L] *LOW* (07/09/15 6:55 PM) Chloride [99-109 104 mEq/L mEq/L] (07/09/15 6:55 PM) CO2 [22-32 mEq/L] 26 mEq/L (07/09/15 6:55 PM) AGAP [3-20] 7 (07/09/15 6:55 PM) BUN [4-20 mg/dL] 6 mg/dL (07/09/15 6:55 PM) Glucose Lvl [70-100 98 mg/dL mg/dL] (07/09/15 6:55 PM) Creatinine Lvl 0.70 mg/dL [0.44-1.03 mg/dL] (07/09/15 6:55 PM) eGFR [>60] >60 1 (07/09/15 6:55 PM) Calcium Lvl 9.3 mg/dL [8.6-10.0 mg/dL] (07/09/15 6:55 PM) Albumin Lvl [3.5-4.8 3.3 gm/dL gm/dL] *LOW* (07/09/15 6:55 PM) Total Protein 7.2 gm/dL [6.1-7.9 gm/dL] (07/09/15 6:55 PM) Globulin [1.9-4.3 3.9 gm/dL gm/dL] (07/09/15 6:55 PM) ALT [14-54 U/L] 14 U/L (07/09/15 6:55 PM) AST [15-41 U/L] 19 U/L (07/09/15 6:55 PM) Alk Phos [26-104 85 U/L U/L] (07/09/15 6:55 PM) Bili Total [0.2-1.2 0.7 mg/dL 2 mg/dL] (07/09/15 6:55 PM) Lipase Lvl [8-48 18 U/L U/L] (07/09/15 6:55 PM) U Beta hCG Ql Neg (07/09/15 7:02 PM) 1Result Comment: Multiply eGFR results by 1.21 for race. 2Result Comment: Naproxen, specifically the metabolite O-desmethylnaproxen, may cause spurious elevation in Total Bilirubin levels. Urinalysis Most recent to 1 oldest [Reference Range]: UA Color Lt Yellow (07/09/15 6:55 PM) UA Appear Clear (07/09/15 6:55 PM) UA pH [5.0-8.0] 6.5 (07/09/15 6:55 PM) UA Leuk Est Negative [Negative] (07/09/15 6:55 PM) UA Nitrite Negative [Negative] (07/09/15 6:55 PM) UA Protein Negative [Negative] (07/09/15 6:55 PM) UA Glucose Negative [Negative] (07/09/15 6:55 PM) UA Ketones Negative [Negative] (07/09/15 6:55 PM) UA Urobilinogen Negative [<1.0] (07/09/15 6:55 PM) UA Bili [Negative] Negative (07/09/15 6:55 PM) UA Blood [Negative] Trace *ABN* (07/09/15 6:55 PM) UA Spec Grav 1.023 [1.003-1.030] (07/09/15 6:55 PM) Type Clean Catch (07/09/15 6:55 PM) UA WBC [0-4] 5-10 *ABN* (07/09/15 6:55 PM) UA RBC [0-2] 5-10 *ABN* (07/09/15 6:55 PM) Epithelial Cells 5-10 (07/09/15 6:55 PM) UA Bacteria Rare (07/09/15 6:55 PM) UA Mucous Present (07/09/15 6:55 PM) Immunizations Vaccine Date Refusal Reason pneumococcal 23-polyvalent vaccine 11/18/14 Procedures Procedure Date Related Diagnosis Body Site Esophagogastroduodenoscopy Foreign Body 01/06/16 Removal1 Procedure with Anesthesia2 01/06/16 Esophagogastroduodenoscopy Balloon Dilat3 02/14/15 Examination Under Anesthesia4 02/14/15 Adenoidectomy Bilateral tubal ligation Bronchoscope Cardiac catheterization, combined right and left heart Tonsillectomy Tympanostomy [place] tooth 1auto-populated from documented surgical case 2auto-populated [...]
--- OUTSIDE RECORDS SUMMARY | 2017-01-20 22:14 | XMS REPORT | Referral Summary ---
Author Organization Unknown Address Unknown Phone Unavailable Care Team Providers Care Wet Sander Name Role Phone Pardeep Poole Primary Care Physician [phone] Encounter VC Date(s): 02/11/15 - 02/11/15 [facility] [address] [place] [address] [place] ( 1 ) - Discharge Diagnosis: Abdominal pain Discharge Diagnosis: Acute vaginitis Discharge Disposition: Home or Self Care Attending Physician: Yasmeen Schultz MD Admitting Physician: Yasmeen Schultz MD Vital Signs Most recent to 1 oldest [Reference Range]: Temperature Oral 36.7 degC [35.8-37.3 degC] (02/11/15 4:35 PM) Peripheral Pulse 100 bpm Rate [60-100 bpm] (02/11/15 4:35 PM) Respiratory Rate 18 br/min [14-20 br/min] (02/11/15 4:35 PM) Blood Pressure 115/86 mmHg [90-140/60-90 mmHg] (02/11/15 4:35 PM) Most recent to 1 oldest [Reference Range]: SpO2 94 % (02/11/15 4:35 PM) Problem List Condition Effective Dates Status [...] pain, # 300 mL, 0 Refill(s), Pharmacy: [facility] [id number], 10 mL Oral q6hr,PRN:as needed for pain Start Date: 12/24/14 Status: Ordered Advair Diskus 250 mcg-50 mcg inhalation powder See Instructions, INHALE 1 PUFF BY INHALATION ROUTE 2 TIMES EVERY DAY IN THE MORNING AND EVENING APPROXIMATELY 12 HOURS APART, # 1 unknown unit, eRx: [facility] [id number], INHALE 1 PUFF BY INHALATION ROUTE 2 [...] # 22 g, 0 Refill(s) , Pharmacy: [facility] [id number] Special Instructions: Apply in a thin film twice a day to area. Start Date: 01/23/15 Status: Ordered FLUoxetine 20 mg oral capsule 20 mg, Oral, qAM, # 30 caps, 2 Refill(s), Pharmacy: [facility] [id number], 20 mg Oral qAM Start Date: 01/14/15 Status: Ordered imipramine 25 mg oral tablet 2 tabs, Oral, Bedtime (once a day), # 60 tabs, 3 Refill(s), Pharmacy: [facility] [id number], 2 tabs Oral Bedtime (once a day) Start Date: 12/30/14 Status: Ordered Latuda 60 mg, Oral, qPM, with food, 0 Refill(s) Special Instructions: with food Start Date: 03/29/14 Status: Ordered levETIRAcetam 1,500 mg, Oral, BID, 0 Refill(s) Start Date: 11/18/14 Status: Ordered loratadine 10 mg oral tablet 10 mg, Oral, Daily, # 30 tabs, 5 Refill(s), Pharmacy: [facility] [id number] , 10 mg Oral Daily Start Date: 01/14/15 Status: Ordered mirtazapine 45 mg, Oral, Bedtime (once a day), 0 Refill(s) Start Date: 11/18/14 Status: Ordered Naprosyn 500 mg oral tablet 1 tabs, Oral, BID, as needed for pain, # 20 tabs, 0 Refill(s) Start Date: 01/11/15 Status: Ordered pantoprazole 40 mg oral delayed release tablet 1 tabs, Oral, BID, # 60 tabs, 0 Refill(s) Start Date: 12/30/14 Status: Ordered Percocet 5/325 oral tablet See Instructions, as needed for pain, 1-2 tabs Oral q4-6hr prn, # 15 tabs, 0 Refill(s) Special Instructions: 1-2 tabs Oral q4-6hr prn Start Date: 02/11/15 Stop Date: 02/18/15 Status: Ordered Vimpat 100 mg oral tablet [...] Adenoidectomy Bilateral tubal ligation Bronchoscope Tonsillectomy Tympanostomy [place] tooth Social History Social History Type Response Smoking Status Current every day smoker; Type: Cigarettes; Tobacco use per day: 3-4 cigarettes a day Assessment and Plan No data available for this section
--- OUTSIDE RECORDS SUMMARY | 2017-01-20 22:14 | XMS REPORT | Referral Summary ---
Author Author [facility] Organization [facility] Address Unknown Phone Unavailable Care Team Providers Care Room Service Manager Name Role Phone Imelda Martin Primary Care Physician [phone] Encounter VC Date(s): 05/26/16 - 05/26/16 [facility] [address] [place] [address] Discharge Disposition: Against Medical Advice Attending Physician: Jefferson Barbosa DO Admitting Physician: Jefferson Barbosa DO Vital Signs Most recent to 1 oldest [Reference Range]: Temperature Oral 36.9 degC [35.8-37.3 degC] (05/26/16 8:16 PM) Peripheral Pulse 105 bpm Rate [60-100 bpm] *HI* (05/26/16 8:16 PM) Respiratory Rate 20 br/min [14-20 br/min] (05/26/16 8:16 PM) Blood Pressure 117/77 mmHg [90-140/60-90 mmHg] (05/26/16 8:16 PM) SpO2 99 % (05/26/16 8:16 PM) Problem List Condition Effective Dates Status [...] HOURS APART, # 1 unknown unit, eRx: [facility] [id number], INHALE 1 PUFF BY INHALATION ROUTE 2 [...] # 1 Each, 1 Refill(s), Pharmacy : [facility] [address] Start Date: 06/11/15 Status: Ordered promethazine 25 [...] combined right and left heart Tonsillectomy Tympanostomy [place] tooth 1auto-populated from documented surgical case 2auto-populated from documented surgical case 3auto-populated from documented surgical case 4auto-populated from documented surgical case Social History Social History Type Response Smoking Status Never smoker Assessment and Plan No data available for this section
--- OUTSIDE RECORDS SUMMARY | 2017-01-20 22:14 | XMS REPORT | Referral Summary ---
Author Author [facility] Organization [facility] Address Unknown Phone Unavailable Care Team Providers Care Wire Frame Dipper Name Role Phone [place] [facility] Primary Care Physician Unavailable Encounter TERRELL [id number] Date(s): 02/25/16 - 02/25/16 [facility] [address] [place], [place] [address] Discharge Diagnosis: Acute right flank pain Discharge Disposition: 01-Home or Self Care Attending Physician: Presley Frias MD Admitting Physician: Presley Frias MD Vital Signs Most recent to 1 oldest [Reference Range]: Temperature Oral 37.0 degC [35.8-37.3 degC] (02/25/16 9:28 PM) Peripheral Pulse 96 bpm Rate [60-100 bpm] (02/25/16 9:28 PM) Respiratory Rate 16 br/min [14-20 br/min] (02/25/16 9:28 PM) Blood Pressure 96/64 mmHg [90-140/60-90 mmHg] (02/25/16 11:30 PM) SpO2 98 % (02/25/16 11:30 PM) Problem List Condition Effective Dates Status [...] HOURS APART, # 1 unknown unit, eRx: [facility] [id number], INHALE 1 PUFF BY INHALATION ROUTE 2 TIMES EVERY DAY IN THE MORNING AND EV... Start Date: 02/25/15 Status: Ordered Carafate 1 g/10 mL oral suspension 10 mL, Oral, QIDACHS, # 280 mL, 0 Refill(s), Pharmacy: [facility], 10 mL Oral QIDACHS Start Date: 02/15/16 Status: Ordered cetirizine 10 mg oral tablet 10 mg 1 tabs, Oral, Daily, # 30 tabs, 5 Refill(s), Pharmacy: [facility] [id number], 1 tabs Oral Daily Start Date: 09/01/15 [...] prn, # 5 mL, 5 Refill(s), Pharmacy: [facility] Start Date: 02/02/16 Status: Ordered Pepcid 20 mg oral tablet 20 mg 1 tabs, Oral, BID, # 60 tabs, 0 Refill(s) Start Date: 09/14/15 Status: Ordered ProAir HFA 90 mcg/inh inhalation aerosol See Instructions, 2-4 puffs every 4-6 hrs prn., # 1 Each, 1 Refill(s), Pharmacy : [facility] [address] Start Date: 06/11/15 Status: Ordered Singulair qPM, 0 Refill(s) Start Date: 01/23/16 Status: Ordered Vitamin D3 1,000 Intl_Units, Oral, Daily, 0 Refill(s) Start Date: 10/26/14 Status: Ordered Results Hematology Most recent to 1 oldest [Reference Range]: WBC [4.8-10.8 7.5 10*3/uL 10*3/uL] (02/25/16 10:18 PM) RBC [4.00-5.20] 4.11 (02/25/16 10:18 PM) Hgb [12.0-16.0 10.2 gm/dL gm/dL] *LOW* (02/25/16 10:18 PM) Hct [37.0-47.0 %] 33.2 % *LOW* (02/25/16 10:18 PM) MCV [82.0-99.0 fL] 80.8 fL *LOW* (02/25/16 10:18 PM) MCH [27.0-32.0 pg] 24.8 pg *LOW* (02/25/16 10:18 PM) MCHC [32.0-36.0 30.7 gm/dL gm/dL] *LOW* (02/25/16 10:18 PM) RDW [11.5-14.5 %] 18.6 % *HI* (02/25/16 10:18 PM) Platelet [150-400 198 10*3/uL 10*3/uL] (02/25/16 10:18 PM) MPV [9.4-12.4 fL] 9.5 fL (02/25/16 10:18 PM) Immature 0.1 % Granulocytes (02/25/16 10:18 PM) [0.0-1.0 %] Neutrophils [51-75 68 % %] (02/25/16 10:18 PM) Lymphocytes [20-46 21 % %] (02/25/16 10:18 PM) Monocytes [4-11 %] 9 % (02/25/16 10:18 PM) Eosinophils [0-4 %] 1 % (02/25/16 10:18 PM) Basophils [0-2 %] 0 % (02/25/16 10:18 PM) Neutro Absolute 5.10 10*3 [1.90-7.00 10*3] (02/25/16 10:18 PM) Lymph Absolute 1.57 10*3 [0.80-3.30 10*3] (02/25/16 10:18 PM) [place] Absolute 0.70 10*3 [0.30-1.00 10*3] (02/25/16 10:18 PM) Eos Absolute 0.09 10*3 [0.00-0.50 10*3] (02/25/16 10:18 PM) Baso Absolute 0.01 10*3 [0.00-0.20 10*3] (02/25/16 10:18 PM) Coagulation Most recent to 1 oldest [Reference Range]: D-Dimer [0-600 755 ng{FEU}/mL 1 ng{FEU}/mL] *HI* (02/25/16 10:18 PM) 1Result Comment: A D Dimer result of <500 ng/mL FEU has a negative predictive value of approximately 100% for the exclusion of DVT and acute PE. Chemistry Most recent to 1 oldest [Reference Range]: Sodium Lvl [136-144 136 mEq/L mEq/L] (02/25/16 10:18 PM) Potassium Lvl 3.8 mEq/L [3.6-5.1 mEq/L] (02/25/16 10:18 PM) Chloride [99-109 104 mEq/L mEq/L] (02/25/16 10:18 PM) CO2 [22-32 mEq/L] 26 mEq/L (02/25/16 10:18 PM) AGAP [3-20] 6 (02/25/16 10:18 PM) BUN [4-20 mg/dL] 4 mg/dL (02/25/16 10:18 PM) Glucose Lvl [70-100 93 mg/dL mg/dL] (02/25/16 10:18 PM) Creatinine Lvl 0.60 mg/dL [0.44-1.03 mg/dL] (02/25/16 10:18 PM) eGFR [>60] >60 1 (02/25/16 10:18 PM) Calcium Lvl 9.1 mg/dL [8.6-10.0 mg/dL] (02/25/16 10:18 PM) Albumin Lvl [3.5-4.8 3.1 gm/dL gm/dL] *LOW* (02/25/16 10:18 PM) Total Protein 6.8 gm/dL [6.1-7.9 gm/dL] (02/25/16 10:18 PM) Globulin [1.9-4.3 3.7 gm/dL gm/dL] (02/25/16 10:18 PM) ALT [14-54 U/L] 13 U/L *LOW* (02/25/16 10:18 PM) AST [15-41 U/L] 13 U/L *LOW* (02/25/16 10:18 PM) Alk Phos [26-104 78 U/L U/L] (02/25/16 10:18 PM) Bili Total [0.2-1.2 0.6 mg/dL 2 mg/dL] (02/25/16 10:18 PM) Lipase Lvl [8-48 19 U/L U/L] (02/25/16 10:18 PM) U Beta hCG Ql Negative (02/25/16 10:18 PM) 1Result Comment: Multiply eGFR results by 1.21 for race. 2Result Comment: Naproxen, specifically the metabolite O-desmethylnaproxen, may cause spurious elevation in Total Bilirubin levels. Urinalysis Most recent to 1 oldest [Reference Range]: UA Color Yellow (02/25/16 10:18 PM) UA Appear Clear (02/25/16 10:18 PM) UA pH [5.0-8.0] 7.0 (02/25/16 10:18 PM) UA Leuk Est Pos 1+ [Negative] *ABN* (02/25/16 10:18 PM) UA Nitrite Negative [Negative] (02/25/16 10:18 PM) UA Protein Negative [Negative] (02/25/16 10:18 PM) UA Glucose Negative [Negative] (02/25/16 10:18 PM) UA Ketones Negative [Negative] (02/25/16 10:18 PM) UA Urobilinogen Negative [<1.0] (02/25/16 10:18 PM) UA Bili [Negative] Negative (02/25/16 10:18 PM) UA Blood [Negative] Negative (02/25/16 10:18 PM) UA Spec Grav 1.010 [1.003-1.030] (02/25/16 10:18 PM) Type Clean Catch (02/25/16 10:18 PM) UA WBC [0-4] 5-10 *ABN* (02/25/16 10:18 PM) UA RBC [0-2] 2-5 (02/25/16 10:18 PM) Epithelial Cells 2-5 (02/25/16 10:18 PM) UA Bacteria Rare (02/25/16 10:18 PM) Immunizations Vaccine Date Refusal Reason pneumococcal 23-polyvalent vaccine 11/18/14 Procedures Procedure Date Related Diagnosis Body Site Esophagogastroduodenoscopy Foreign Body 01/06/16 Removal1 Procedure with Anesthesia2 01/06/16 Esophagogastroduodenoscopy Balloon Dilat3 02/14/15 Examination Under Anesthesia4 02/14/15 Adenoidectomy Bilateral tubal ligation Bronchoscope Cardiac catheterization, combined right and left heart Tonsillectomy Tympanostomy [place] tooth 1auto-populated from documented surgical case 2auto-populated [...]
--- OUTSIDE RECORDS SUMMARY | 2017-01-20 22:14 | XMS REPORT | Referral Summary ---
Author Author [facility] Organization [facility] Address Unknown Phone Unavailable Care Team Providers Care Mechatronics Engineer Name Role Phone Imelda Martin Primary Care Physician [phone] Encounter VC Date(s): 06/05/15 - 06/05/15 [facility] [address] [facility] [address] [place] [address] Discharge Diagnosis: Shuddering spell Discharge Disposition: [...] pain, # 300 mL, 0 Refill(s), Pharmacy: [facility] [id number], 10 mL Oral q6hr,PRN:as needed for pain Start Date: 12/24/14 Status: Ordered Advair Diskus 250 mcg-50 mcg inhalation powder See Instructions, INHALE 1 PUFF BY INHALATION ROUTE 2 TIMES EVERY DAY IN THE MORNING AND EVENING APPROXIMATELY 12 HOURS APART, # 1 unknown unit, eRx: [facility] [id number], INHALE 1 PUFF BY INHALATION ROUTE 2 TIMES EVERY DAY IN THE MORNING AND EV... Start Date: 02/25/15 Status: Ordered albuterol 2.5 mg/3 mL (0.083%) inhalation solution 3 mL, Inhalation, q6hr (scheduled), # 60 Each, 1 Refill(s), Pharmacy: [facility] 19912, 3 mL Inhalation q6hr (scheduled) Start Date: 02/13/15 Status: Ordered Atrovent 42 mcg/inh nasal spray 2 sprays, Nasal, TID, # 2 Each, 5 Refill(s), Pharmacy: [facility] [id number] Start Date: 06/11/15 Stop Date: 06/11/16 Status: Ordered Chloraseptic [place] 1.4% topical spray 5 sprays, Oral, q2hr, # 10 mL, 0 Refill(s) Start Date: 08/11/15 Stop Date: 08/11/16 Status: Ordered levETIRAcetam 500 mg oral tablet See Instructions, TAKE 3 TABLETS BY MOUTH TWICE DAILY, # 180 tabs, 12 Refill(s) , eRx: [facility] [id number], TAKE 3 TABLETS BY MOUTH TWICE DAILY Start Date: 02/27/15 Status: Ordered Linzess 290 mcg oral capsule 1 caps, Oral, Daily, # 30 caps, 6 Refill(s), Pharmacy: [facility] [id number], 1 caps Oral Daily Start Date: 02/24/15 Status: Ordered loratadine 10 mg oral tablet 10 mg, Oral, Daily, # 30 tabs, 5 Refill(s), Pharmacy: [facility] [id number] , 10 mg Oral Daily Start Date: [...] # 1 Each, 1 Refill(s), Pharmacy : [facility] [id number] Start Date: 06/11/15 Status: Ordered traZODone Oral, [...] right and left heart Tonsillectomy Tympanostomy [place] tooth 1auto-populated from documented surgical case 2auto-populated from documented surgical case Social History Social History Type Response Smoking Status Former smoker; Type: Cigarettes; Tobacco use per day: 1 Pack1 1quit 05/2015 Assessment and Plan No data available for this section
--- OUTSIDE RECORDS SUMMARY | 2017-01-20 22:15 | XMS REPORT | Referral Summary ---
Author Author [facility] Organization [facility] Address Unknown Phone Unavailable Care Team Providers Care Claim Analyst Name Role Phone [place] [facility] Primary Care Physician Unavailable Encounter [facility] [id number] Date(s): 01/19/16 - 01/19/16 [facility] [address], [place] [address] Discharge Diagnosis: Acute urinary tract infection Discharge Diagnosis: Chronic abdominal pain Discharge Disposition: 01-Home or Self Care Attending Physician: Presley Frias MD Admitting Physician: Dre Gruber Vital Signs Most recent to 1 oldest [Reference Range]: Temperature Oral 36.5 degC [35.8-37.3 degC] (01/19/16 10:35 PM) Peripheral Pulse 88 bpm Rate [60-100 bpm] (01/19/16 10:35 PM) Respiratory Rate 20 br/min [14-20 br/min] (01/19/16 8:40 PM) Blood Pressure 109/79 mmHg [90-140/60-90 mmHg] (01/19/16 10:35 PM) SpO2 99 % (01/19/16 10:35 PM) Problem List Condition Effective Dates Status [...] pain, # 300 mL, 0 Refill(s), Pharmacy: [facility] [id number], 10 mL Oral q6hr,PRN:as needed for pain Start Date: 12/24/14 Status: Ordered Advair Diskus 250 mcg-50 mcg inhalation powder See Instructions, INHALE 1 PUFF BY INHALATION ROUTE 2 TIMES EVERY DAY IN THE MORNING AND EVENING APPROXIMATELY 12 HOURS APART, # 1 unknown unit, eRx: [facility] [id number], INHALE 1 PUFF BY INHALATION ROUTE 2 [...] Daily, # 30 tabs, 5 Refill(s), Pharmacy: [facility] 41727, 1 tabs Oral Daily Start Date: 09/01/15 [...] Daily, # 1 Each, 5 Refill(s), [facility] Start Date: 12/12/15 Status: Ordered ibuprofen 800 mg oral tablet 800 mg 1 tabs, Oral, TID, Pain, # 15 tabs, 0 Refill(s) Start Date: 12/07/15 Status: Ordered loratadine 10 mg oral tablet 10 mg, Oral, Daily, # 30 tabs, 5 Refill(s), Pharmacy: [facility] 51181 , 10 mg Oral Daily Start Date: 01/14/15 Status: Ordered meloxicam 15 mg oral tablet 15 mg 1 tabs, Oral, Daily, # 30 tabs, 0 Refill(s) Start Date: 12/12/15 Status: Ordered Mobic 7.5 mg oral tablet 7.5 mg 1 tabs, Oral, Daily, # 7 tabs, 0 Refill(s), Pharmacy: [facility], 1 tabs Oral Daily,x7 [...] # 1 Each, 1 Refill(s), Pharmacy : [facility] 46378 Start Date: 06/11/15 Status: Ordered Robitussin DM To Go 20 mg-200 mg/10 mL oral liquid 10 mL, Oral, q4hr, as needed for cough, # 100 mL, 0 Refill(s), Pharmacy: [facility] [id number] Start Date: 12/12/15 Status: Ordered Vitamin D3 1,000 Intl_Units, Oral, Daily, 0 Refill(s) Start Date: 10/26/14 Status: Ordered Results Hematology Most recent to 1 oldest [Reference Range]: WBC [4.8-10.8 9.2 10*3/uL 10*3/uL] (01/19/16 9:00 PM) RBC [4.00-5.20] 4.27 (01/19/16 9:00 PM) Hgb [12.0-16.0 10.5 gm/dL gm/dL] *LOW* (01/19/16 9:00 PM) Hct [37.0-47.0 %] 34.5 % *LOW* (01/19/16 9:00 PM) MCV [82.0-99.0 fL] 80.8 fL *LOW* (01/19/16 9:00 PM) MCH [27.0-32.0 pg] 24.6 pg *LOW* (01/19/16 9:00 PM) MCHC [32.0-36.0 30.4 gm/dL gm/dL] *LOW* (01/19/16 9:00 PM) RDW [11.5-14.5 %] 17.1 % *HI* (01/19/16 9:00 PM) Platelet [150-400 246 10*3/uL 10*3/uL] (01/19/16 9:00 PM) MPV [9.4-12.4 fL] 9.8 fL (01/19/16 9:00 PM) Immature 0.2 % Granulocytes (01/19/16 9:00 PM) [0.0-1.0 %] Neutrophils [51-75 71 % %] (01/19/16 9:00 PM) Lymphocytes [20-46 20 % %] (01/19/16 9:00 PM) Monocytes [4-11 %] 8 % (01/19/16:00 PM) Eosinophils [0-4 %] 0 % (01/19/16:00 PM) Basophils [0-2 %] 0 % (01/19/16:00 PM) Neutro Absolute 6.52 10*3 [1.90-7.00 10*3] (01/19/16 9:00 PM) Lymph Absolute 1.86 10*3 [0.80-3.30 10*3] (01/19/16 9:00 PM) Bay Absolute 0.74 10*3 [0.30-1.00 10*3] (01/19/16:00 PM) Eos Absolute 0.04 10*3 [0.00-0.50 10*3] (01/19/16 9:00 PM) Baso Absolute 0.02 10*3 [0.00-0.20 10*3] (01/19/16:00 PM) Chemistry Most recent to 1 oldest [Reference Range]: Sodium Lvl [136-144 137 mEq/L mEq/L] (01/19/16:00 PM) Potassium Lvl 4.1 mEq/L [3.6-5.1 mEq/L] (01/19/16:00 PM) Chloride [99-109 104 mEq/L mEq/L] (01/19/16:00 PM) CO2 [22-32 mEq/L] 26 mEq/L (01/19/16:00 PM) AGAP [3-20] 7 (01/19/16:00 PM) BUN [4-20 mg/dL] 11 mg/dL (01/19/16:00 PM) Glucose Lvl [70-100 90 mg/dL mg/dL] (01/19/16 9:00 PM) Creatinine Lvl 0.76 mg/dL [0.44-1.03 mg/dL] (01/19/16 9:00 PM) eGFR [>60] >60 1 (01/19/16:00 PM) Calcium Lvl 8.6 mg/dL [8.6-10.0 mg/dL] (01/19/16 9:00 PM) Albumin Lvl [3.5-4.8 3.3 gm/dL gm/dL] *LOW* (01/19/16 9:00 PM) Total Protein 6.9 gm/dL [6.1-7.9 gm/dL] (01/19/16 9:00 PM) Globulin [1.9-4.3 3.6 gm/dL gm/dL] (01/19/16 9:00 PM) ALT [14-54 U/L] 14 U/L (01/19/16 9:00 PM) AST [15-41 U/L] 17 U/L (01/19/16 9:00 PM) Alk Phos [26-104 76 U/L U/L] (01/19/16 9:00 PM) Bili Total [0.2-1.2 0.7 mg/dL 2 mg/dL] (01/19/16 9:00 PM) Lipase Lvl [8-48 25 U/L U/L] (01/19/16 9:00 PM) Screen, Negative Urine NPT (01/19/16 9:05 PM) U Beta hCG Ql Negative (01/19/16 9:00 PM) 1Result Comment: Multiply eGFR results by 1.21 for race. 2Result Comment: Naproxen, specifically the metabolite O-desmethylnaproxen, may cause spurious elevation in Total Bilirubin levels. Urinalysis Most recent to 1 oldest [Reference Range]: UA Color Yellow (01/19/16 9:00 PM) UA Appear Sl Cloudy (01/19/16 9:00 PM) UA pH [5.0-8.0] 5.0 (01/19/16 9:00 PM) UA Leuk Est Pos 2+ [Negative] *ABN* (01/19/16 9:00 PM) UA Nitrite Negative [Negative] (01/19/16 9:00 PM) UA Protein Negative [Negative] (01/19/16 9:00 PM) UA Glucose Negative [Negative] (01/19/16 9:00 PM) UA Ketones Negative [Negative] (01/19/16 9:00 PM) UA Urobilinogen Negative [<1.0] (01/19/16 9:00 PM) UA Bili [Negative] Negative (01/19/16 9:00 PM) UA Blood [Negative] Pos 3+ *ABN* (01/19/16 9:00 PM) UA Spec Grav 1.010 [1.003-1.030] (01/19/16 9:00 PM) Type Clean Catch (01/19/16 9:00 PM) UA WBC [0-4] 20-50 *ABN* (01/19/16 9:00 PM) UA RBC [0-2] 2-5 (01/19/16 9:00 PM) Epithelial Cells 5-10 (01/19/16 9:00 PM) UA Bacteria Rare (01/19/16 9:00 PM) Immunizations Vaccine Date Refusal Reason pneumococcal 23-polyvalent vaccine 11/18/14 Procedures Procedure Date Related Diagnosis Body Site Esophagogastroduodenoscopy Foreign Body 01/06/16 Removal1 Procedure with Anesthesia2 01/06/16 Esophagogastroduodenoscopy Balloon Dilat3 02/14/15 Examination Under Anesthesia4 02/14/15 Adenoidectomy Bilateral tubal ligation Bronchoscope Cardiac catheterization, combined right and left heart Tonsillectomy Tympanostomy [place] tooth 1auto-populated from documented surgical case [...]
--- OUTSIDE RECORDS SUMMARY | 2017-01-20 22:15 | XMS REPORT | Referral Summary ---
Author Author [facility] Organization [facility] Address Unknown Phone Unavailable Care Team Providers Care Counter Weigher Name Role Phone [facility] Primary Care Physician Unavailable Encounter [facility] [id number] Date(s): 02/05/16 - 02/05/16 [facility] [address] [facility] [address], [place] [address] Discharge Disposition: 01-Home or Self Care Attending Physician: Niranjan Thomas MD Admitting Physician: Niranjan Thomas MD Vital Signs Most recent to 1 oldest [Reference Range]: Peripheral Pulse 78 bpm Rate [60-100 bpm] (02/05/16 9:01 AM) Blood Pressure 122/86 mmHg [90-140/60-90 mmHg] (02/05/16 9:01 AM) Problem List Condition Effective Dates Status [...] pain, # 300 mL, 0 Refill(s), Pharmacy: [facility] 84714, 10 mL Oral q6hr,PRN:as needed for pain [...] HOURS APART, # 1 unknown unit, eRx: [facility] [id number], INHALE 1 PUFF BY INHALATION ROUTE 2 [...] Daily, # 30 tabs, 5 Refill(s), Pharmacy: [facility] 18867, 1 tabs Oral Daily Start Date: 09/01/15 [...] Daily, # 1 Each, 5 Refill(s), [email or web address] [address] Start Date: 12/12/15 Status: Ordered ibuprofen 800 mg oral tablet 800 mg 1 tabs, Oral, TID, Pain, # 15 tabs, 0 Refill(s) Start Date: 12/07/15 Status: Ordered loratadine 0 Refill(s) Start Date: 01/23/16 Status: Ordered loratadine 10 mg oral tablet 10 mg, Oral, Daily, # 30 tabs, 5 Refill(s), [facility]: [email or web address] [address] , 10 mg Oral Daily Start Date: 01/14/15 Status: Ordered meloxicam 15 mg oral tablet 15 mg 1 tabs, Oral, Daily, # 30 tabs, 0 Refill(s) Start Date: 12/12/15 Status: Ordered Mobic 7.5 mg oral tablet 7.5 mg 1 tabs, Oral, Daily, # 7 tabs, 0 Refill(s), Pharmacy: [facility], 1 tabs Oral Daily,x7 days [...] # 1 Each, 1 Refill(s), Pharmacy : [facility] 59677 Start Date: 06/11/15 Status: Ordered Robitussin DM To Go 20 mg-200 mg/10 mL oral liquid 10 mL, Oral, q4hr, as needed for cough, # 100 mL, 0 Refill(s), Pharmacy: [facility] 08525 Start Date: 12/12/15 Status: Ordered Singulair qPM, [...] combined right and left heart Tonsillectomy Tympanostomy [place] tooth 1auto-populated from documented surgical case 2auto-populated [...]
--- OUTSIDE RECORDS SUMMARY | 2017-01-20 22:15 | XMS REPORT | Referral Summary ---
Author Organization Unknown Address Unknown Phone Unavailable Care Team Providers Care Uniform Designer Name Role Phone Pardeep Poole Primary Care Physician [phone] Encounter VC Date(s): 01/07/15 - 01/07/15 [facility] [address] [facility] [place] [address] Discharge Diagnosis: Epistaxis, recurrent Discharge Diagnosis: UNSPECIFIED SINUSITIS (CHRONIC) Discharge Diagnosis: DEVIATED NASAL SEPTUM Discharge Disposition: Home or Self Care Attending Physician: Rafael Katz MD Admitting Physician: Rafael Katz MD Vital Signs Most recent to 1 oldest [Reference Range]: Blood Pressure 110/88 mmHg [90-140/60-90 mmHg] (01/07/15 10:22 AM) Problem List Condition Effective Dates Status [...] pain, # 300 mL, 0 Refill(s), Pharmacy: [facility] 22211, 10 mL Oral q6hr,PRN:as needed for pain Start Date: 12/24/14 Status: Ordered Advair Diskus 250 mcg-50 mcg inhalation powder See Instructions, INHALE 1 PUFF BY INHALATION ROUTE 2 TIMES EVERY DAY IN THE MORNING AND EVENING APPROXIMATELY 12 HOURS APART, # 1 unknown unit, 1 Refill(s) , eRx: [facility] [id number], INHALE 1 PUFF BY INHALATION ROUTE 2 TIMES EVERY DAY IN THE M... Special Instructions: INHALE 1 PUFF BY INHALATION ROUTE 2 TIMES EVERY DAY IN THE MORNING AND EVENING APPROXIMATELY 12 HOURS APART Start Date: 12/02/14 Status: Ordered Flonase 50 mcg/inh nasal spray 2 sprays, Nasal, Daily, # 1 Each, 5 Refill(s), Pharmacy: [facility] 87554 Start Date: 12/03/14 Status: Ordered FLUoxetine 20 mg, Oral, qAM, 0 Refill(s) Start Date: 11/18/14 Status: Ordered imipramine 25 mg oral tablet 2 tabs, Oral, Bedtime (once a day), # 60 tabs, 3 Refill(s), Pharmacy: [facility] 23704, 2 tabs Oral Bedtime (once a day) [...] 0 Refill(s) Start Date: 11/18/14 Status: Ordered [place] 5 mg-325 mg oral tablet 1 tabs, [...] Procedures Procedure Date Related Diagnosis Body Site Nasal/sinus endoscopy, surgical; with control 01/07/15 of nasal hemorrhage Nasal/sinus endoscopy, surgical; with control 01/07/15 of nasal hemorrhage Nasal/sinus endoscopy, surgical; with control 01/07/15 of nasal hemorrhage Adenoidectomy Bilateral tubal ligation Bronchoscope Tonsillectomy Tympanostomy [place] tooth Social History Social History Type Response Smoking Status Current every day smoker; Type: Cigarettes; Tobacco use per day: Pack Assessment and Plan Extracted from: Title: Ambulatory Patient Education Author: Rafael Katz MD Date: 01/07/15 No follow up information was provided.
--- OUTSIDE RECORDS SUMMARY | 2017-01-20 22:15 | XMS REPORT | Referral Summary ---
Author Author [facility] Organization [facility] Address Unknown Phone Unavailable Care Team Providers Care Auto Winder Name Role Phone [place] [facility] Primary Care Physician Unavailable Encounter [facility] [id number] Date(s): 01/03/16 - 01/03/16 [facility] [address] [place] [address] Discharge Diagnosis: Hernia, hiatal Discharge Disposition: 01-Home or Self Care Attending Physician: Jace Ricks DO Admitting Physician: Jace Ricks DO Vital Signs Most recent to 1 oldest [Reference Range]: Temperature Oral 36.7 degC [35.8-37.3 degC] (01/03/16 10:40 AM) Peripheral Pulse 68 bpm Rate [60-100 bpm] (01/03/16 10:40 AM) Heart Rate Monitored 67 bpm [60-100 bpm] (01/03/16 11:37 AM) Respiratory Rate 18 br/min [14-20 br/min] (01/03/16 11:37 AM) Blood Pressure 132/87 mmHg [90-140/60-90 mmHg] (01/03/16 11:37 AM) Mean Arterial 101 mmHg Pressure, Cuff (01/03/16 11:28 AM) SpO2 98 % (01/03/16 11:37 AM) Problem List Condition Effective Dates Status [...] pain, # 300 mL, 0 Refill(s), Pharmacy: [facility] 70649, 10 mL Oral q6hr,PRN:as needed for pain Start Date: 12/24/14 Status: Ordered Advair Diskus 250 mcg-50 mcg inhalation powder See Instructions, INHALE 1 PUFF BY INHALATION ROUTE 2 TIMES EVERY DAY IN THE MORNING AND EVENING APPROXIMATELY 12 HOURS APART, # 1 unknown unit, eRx: [facility] [id number], INHALE 1 PUFF BY INHALATION ROUTE 2 [...] Daily, # 30 tabs, 5 Refill(s), Pharmacy: [facility] 77544, 1 tabs Oral Daily Start Date: 09/01/15 Status: Ordered codeine-guaiFENesin 10 mg-300 mg/5 mL oral liquid 5 mL, Oral, q6hr, as needed for cough, # 120 mL, 0 Refill(s) Start Date: 12/21/15 Status: Ordered Flonase 50 mcg/inh nasal spray 2 sprays, Nasal, Daily, # 1 Each, 5 Refill(s), [facility] [address] Start Date: 12/12/15 Status: Ordered ibuprofen 800 mg oral tablet 800 mg 1 tabs, Oral, TID, Pain, # 15 tabs, 0 Refill(s) Start Date: 12/07/15 Status: Ordered loratadine 10 mg oral tablet 10 mg, Oral, Daily, # 30 tabs, 5 Refill(s), [facility] [address] , 10 mg Oral Daily Start Date: 01/14/15 Status: Ordered Lortab Elixir 10 mg-300 mg/15 mL oral liquid 10 mL, Oral, q8hr, X 3 days, # 90 mL, 0 Refill(s) Start Date: 01/03/16 Stop Date: 01/06/16 Status: Ordered meloxicam 15 mg oral tablet [...] # 1 Each, 1 Refill(s), [facility] [address] Start Date: 06/11/15 Status: Ordered Robitussin DM To Go 20 mg-200 mg/10 mL oral liquid 10 mL, Oral, q4hr, as needed for cough, # 100 mL, 0 Refill(s), [facility] [address] Start Date: 12/12/15 Status: Ordered traZODone Oral, [...] combined right and left heart Tonsillectomy Tympanostomy [place] tooth 1auto-populated from documented surgical case 2auto-populated from documented surgical case Social History Social History Type Response Smoking Status Current some day smoker; Type: Cigarettes; Tobacco use per day: 1 Pack1, 2 1pt quit smoking 1 month ago 2quit 05/2015 Assessment and Plan No data available for this section
--- OUTSIDE RECORDS SUMMARY | 2017-01-20 22:15 | XMS REPORT | Referral Summary ---
Author Author [facility] Organization [facility] Address Unknown Phone Unavailable Care Team Providers Care Ui Developer With Angular Js Name Role Phone Imelda Martin Primary Care Physician [phone] Encounter Date(s): 02/20/15 - 02/20/15 [facility] [address] [place] [address] Discharge Diagnosis: Anemia Discharge Disposition: 01-Home or [...] pain, # 300 mL, 0 Refill(s), Pharmacy: [facility] 06915, 10 mL Oral q6hr,PRN:as needed for pain Start Date: 12/24/14 Status: Ordered Advair Diskus 250 mcg-50 mcg inhalation powder See Instructions, INHALE 1 PUFF BY INHALATION ROUTE 2 TIMES EVERY DAY IN THE MORNING AND EVENING APPROXIMATELY 12 HOURS APART, # 1 unknown unit, eRx: [facility] [id number], INHALE 1 PUFF BY INHALATION ROUTE 2 TIMES EVERY DAY IN THE MORNING AND EV... Start Date: 02/25/15 Status: Ordered albuterol 2.5 mg/3 mL (0.083%) inhalation solution 3 mL, Inhalation, q6hr (scheduled), # 60 Each, 1 Refill(s), Pharmacy: [facility] 92212, 3 mL Inhalation q6hr (scheduled) Start Date: 02/13/15 Status: Ordered Atrovent 42 mcg/inh nasal spray 2 sprays, Nasal, TID, # 2 Each, 5 Refill(s), Pharmacy: [facility] 35178 Start Date: 06/11/15 Stop Date: 06/11/16 Status: Ordered Chloraseptic [place] 1.4% topical spray 5 sprays, Oral, q2hr, # 10 mL, 0 Refill(s) Start Date: 08/11/15 Stop Date: 08/11/16 Status: Ordered levETIRAcetam 500 mg oral tablet See Instructions, TAKE 3 TABLETS BY MOUTH TWICE DAILY, # 180 tabs, 12 Refill(s) , eRx: [facility] [id number], TAKE 3 TABLETS BY MOUTH TWICE DAILY Start Date: 02/27/15 Status: Ordered Linzess 290 mcg oral capsule 1 caps, Oral, Daily, # 30 caps, 6 Refill(s), Pharmacy: [facility] 04069, 1 caps Oral Daily Start Date: 02/24/15 Status: Ordered loratadine 10 mg oral tablet 10 mg, Oral, Daily, # 30 tabs, 5 Refill(s), Pharmacy: [facility] 11801 , 10 mg Oral Daily Start Date: [...] Pharmacy : [facility] [address]43 Start Date: 06/11/15 Status: Ordered traZODone Oral, [...] 1.53 10*3 [0.80-3.30 10*3] (02/20/15 2:02 PM) [place] Absolute 0.39 10*3 [0.30-1.00 10*3] (02/20/15 2:02 [...] combined right and left heart Tonsillectomy Tympanostomy [place] tooth 1auto-populated from documented surgical case 2auto-populated from documented surgical case Social History Social History Type Response Smoking Status Former smoker; Type: Cigarettes; Tobacco use per day: 1 Pack1 1quit 05/2015 Assessment and Plan Extracted from: Title: Ambulatory Patient Education Author: Rafael Katz MD Date: 02/20/15 No follow up information was provided.
--- OUTSIDE RECORDS SUMMARY | 2017-01-20 22:15 | XMS REPORT ---
Author Author GENERATED, SYSTEM Organization Unknown Address Unknown Phone Unavailable Care Team Providers Care Warehouse Operations Associate Name Role Phone UNASSIGNED DOCTOR , DOCTOR PP [phone] Reason For Visit Chief Complaint LEFT ARM [...] H (65-99 MG/DL) GFR EST NON AFR [place]OU[place]ORE[place] >90 ML/MIN GFRA EST AFR AMER >90 [...] AM* Status: Final Result URINALYSIS Specimen Number: [id number] Sample Collection Date/Time: 04/09/2015 12:10 AM Specimen [...]
--- OUTSIDE RECORDS SUMMARY | 2017-01-20 22:15 | XMS REPORT | Referral Summary ---
Author Author [facility] Organization [facility] Address Unknown Phone Unavailable Care Team Providers Care Alteration Manager Name Role Phone Imelda Martin Primary Care Physician [phone] Encounter Date(s): 12/05/15 - 12/05/15 [facility] [address], [place] [address] Discharge Diagnosis: Chronic abdominal pain Discharge Disposition: 01-Home or Self Care Attending Physician: Milton Magaña MD Admitting Physician: Milton Magaña MD Vital Signs Most recent to 1 oldest [Reference Range]: Temperature Oral 36.7 degC [35.8-37.3 degC] (12/05/15 4:47 PM) Peripheral Pulse 74 bpm Rate [60-100 bpm] (12/05/15 7:05 PM) Respiratory Rate 20 br/min [14-20 br/min] (12/05/15 7:05 PM) Blood Pressure 126/86 mmHg [90-140/60-90 mmHg] (12/05/15 7:05 PM) SpO2 99 % (12/05/15 7:05 PM) Problem List Condition Effective Dates Status [...] pain, # 300 mL, 0 Refill(s), Pharmacy: [facility] 03071, 10 mL Oral q6hr,PRN:as needed for pain Start Date: 12/24/14 Status: Ordered Advair Diskus 250 mcg-50 mcg inhalation powder See Instructions, INHALE 1 PUFF BY INHALATION ROUTE 2 TIMES EVERY DAY IN THE MORNING AND EVENING APPROXIMATELY 12 HOURS APART, # 1 unknown unit, eRx: [facility] [id number], INHALE 1 PUFF BY INHALATION ROUTE 2 TIMES EVERY DAY IN THE MORNING AND EV... Start Date: 02/25/15 Status: Ordered Atrovent 42 mcg/inh nasal spray 2 sprays, Nasal, TID, # 2 Each, 5 Refill(s), Pharmacy: [facility] 25522 Start Date: 06/11/15 Stop Date: 06/11/16 Status: Ordered Carafate 1 g oral tablet 1 g 1 tabs, Oral, QID, Dissolve in water and drink, # 40 tabs, 0 Refill(s) Start Date: 08/31/15 Status: Ordered cetirizine 10 mg oral tablet 10 mg 1 tabs, Oral, Daily, # 30 tabs, 5 Refill(s), Pharmacy: [facility] 71565, 1 tabs Oral Daily Start Date: 09/01/15 Status: Ordered Linzess 290 mcg oral capsule 1 caps, Oral, Daily, # 30 caps, 6 Refill(s), Pharmacy: [facility] 29607, 1 caps Oral Daily Start Date: 02/24/15 Status: Ordered loratadine 10 mg oral tablet 10 mg, Oral, Daily, # 30 tabs, 5 Refill(s), Pharmacy: [facility] 36967 , 10 mg Oral Daily Start Date: [...] # 1 Each, 1 Refill(s), Pharmacy : [facility] [address] Start Date: 06/11/15 Status: Ordered traZODone Oral, 0 Refill(s) Start Date: 04/05/15 Status: Ordered Viibryd Oral, Daily, 0 Refill(s) Start Date: 04/05/15 Status: Ordered Vitamin D3 1,000 Intl_Units, Oral, Daily, 0 Refill(s) Start Date: 10/26/14 Status: Ordered Results Urinalysis Most recent to 1 oldest [Reference Range]: Type Venous (12/05/15 6:30 PM) Immunizations Vaccine Date Refusal Reason pneumococcal 23-polyvalent vaccine 11/18/14 Procedures Procedure Date Related Diagnosis Body Site Esophagogastroduodenoscopy Balloon Dilat1 02/14/15 Examination Under Anesthesia2 02/14/15 Adenoidectomy Bilateral tubal ligation Bronchoscope Cardiac catheterization, combined right and left heart Tonsillectomy Tympanostomy [place] tooth 1auto-populated from documented surgical case 2auto-populated from documented surgical case Social History Social History Type Response Smoking Status Never smoker Assessment and Plan No data available for this section
--- OUTSIDE RECORDS SUMMARY | 2017-01-20 22:15 | XMS REPORT | Referral Summary ---
Author Organization Unknown Address Unknown Phone Unavailable Care Team Providers Care Batch Trucker Name Role Phone Pardeep Poole Primary Care Physician [phone] Encounter [facility] Date(s): 11/06/14 - 11/06/14 [facility] [address] [place] [address] BS Discharge Disposition: Home or Self Care Attending Physician: Sarah Poole MD Admitting Physician: Sarah Poole MD Vital Signs No data available for [...] QIDACHS, # 1,200 mL, 6 Refill(s), Pharmacy: [facility] 26864, 10 mL Oral QIDACHS Start Date: 10/07/14 Status: Ordered Flonase 50 mcg/inh nasal spray 1 sprays, Nasal, BID, # 16 g, 5 Refill(s), [facility] Start Date: 09/30/14 Status: Ordered FLUoxetine 60 mg oral tablet 1 tabs, Oral, Daily, # 30 tabs, 0 Refill(s) Start Date: 11/06/14 Status: Ordered Latuda 60 mg, Oral, Daily, 0 Refill(s) Start Date: 03/29/14 Status: Ordered levETIRAcetam 500 mg oral tablet See Instructions, TAKE 3 TABLETS BY MOUTH TWICE DAILY, # 180 tabs, 2 Refill(s), TRAN, [facility] [id number], TAKE 3 TABLETS BY MOUTH TWICE DAILY Special Instructions: TAKE 3 TABLETS BY MOUTH TWICE DAILY Start Date: 11/01/14 Status: Ordered loratadine 10 mg, Oral, Daily, 0 Refill(s) Start Date: 10/26/14 Status: Ordered NexIUM 40 mg oral delayed release capsule 1 caps, Oral, Daily, # 30 caps, 5 Refill(s), [facility], 1 caps Oral Daily Start Date: 07/19/14 Status: Ordered ProAir HFA 90 mcg/inh inhalation aerosol See Instructions, 2-4 puffs every 4-6 hrs prn., # 1 Each, 1 Refill(s), [facility] [address] Special Instructions: 2-4 puffs every 4-6 hrs [...] Adenoidectomy Bilateral tubal ligation Bronchoscope Tonsillectomy Tympanostomy [place] tooth Social History Social History Type Response Smoking Status Former smoker Assessment and Plan No data available for this section
--- OUTSIDE RECORDS SUMMARY | 2017-01-20 22:15 | XMS REPORT | Referral Summary ---
Author Author [facility] Organization [facility] Address Unknown Phone Unavailable Care Team Providers Care Financial Services Director Name Role Phone Imelda Martin Primary Care Physician [phone] Encounter Date(s): 04/11/15 - 04/12/15 [facility] [address] [place] [address] Discharge Diagnosis: Constipation Discharge Diagnosis: Abdominal pain Final: CONSTIPATION, UNSPECIFIED Final: TOBACCO USE DISORDER Discharge Disposition: 01-Home or Self Care Attending Physician: Chris Barone MD Admitting Physician: Chris Barone MD Referring Physician: Self Referred, X Vital Signs Most recent to 1 oldest [Reference Range]: Temperature Axillary 36.7 degC [35.2-36.7 degC] (04/11/15 11:09 PM) Peripheral Pulse 85 bpm Rate [60-100 bpm] (04/12/15 2:14 AM) Respiratory Rate 18 br/min [14-20 br/min] (04/12/15 2:14 AM) Blood Pressure 101/79 mmHg [90-140/60-90 mmHg] (04/12/15 2:14 AM) SpO2 95 % (04/12/15 2:14 AM) Problem List Condition Effective Dates Status [...] pain, # 300 mL, 0 Refill(s), Pharmacy: [id number], 10 mL Oral q6hr,PRN:as needed for pain Start Date: 12/24/14 Status: Ordered Advair Diskus 250 mcg-50 mcg inhalation powder See Instructions, INHALE 1 PUFF BY INHALATION ROUTE 2 TIMES EVERY DAY IN THE MORNING AND EVENING APPROXIMATELY 12 HOURS APART, # 1 unknown unit, eRx: [facility] [id number], INHALE 1 PUFF BY INHALATION ROUTE 2 TIMES EVERY DAY IN THE MORNING AND EV... Start Date: 02/25/15 Status: Ordered Atrovent 42 mcg/inh nasal spray 2 sprays, Nasal, TID, # 2 Each, 5 Refill(s), Pharmacy: [facility] [id number] Start Date: 06/11/15 Stop Date: 06/11/16 Status: Ordered Carafate 1 g oral tablet 1 g 1 tabs, Oral, QID, Dissolve in water and drink, # 40 tabs, 0 Refill(s) Start Date: 08/31/15 Status: Ordered cetirizine 10 mg oral tablet 10 mg 1 tabs, Oral, Daily, # 30 tabs, 5 Refill(s), Pharmacy: [facility] 35463, 1 tabs Oral Daily Start Date: 09/01/15 Status: Ordered Linzess 290 mcg oral capsule 1 caps, Oral, Daily, # 30 caps, 6 Refill(s), Pharmacy: [facility] 61514, 1 caps Oral Daily Start Date: 02/24/15 Status: Ordered loratadine 10 mg oral tablet 10 mg, Oral, Daily, # 30 tabs, 5 Refill(s), [facility]acy: [facility] , 10 mg Oral Daily Start Date: [...] # 1 Each, 1 Refill(s), Pharmacy : [facility] [id number] Start Date: 06/11/15 Status: Ordered traZODone Oral, 0 Refill(s) Start Date: 04/05/15 Status: Ordered Viibryd Oral, Daily, 0 Refill(s) Start Date: 04/05/15 Status: Ordered Vitamin D3 1,000 Intl_Units, Oral, Daily, 0 Refill(s) Start Date: 10/26/14 Status: Ordered Results Hematology Most recent to 1 oldest [Reference Range]: WBC [4.8-10.8 8.6 10*3/uL 10*3/uL] (04/12/15 12:38 AM) RBC [4.00-5.20 3.92 10*6/uL 10*6/uL] *LOW* (04/12/15 12:38 AM) Hgb [12.0-16.0 10.5 gm/dL gm/dL] *LOW* (04/12/15 12:38 AM) Hct [37.0-47.0 %] 34.1 % *LOW* (04/12/15 12:38 AM) MCV [82.0-99.0 fL] 87.0 fL (04/12/15 12:38 AM) MCH [27.0-32.0 pg] 26.8 pg *LOW* (04/12/15 12:38 AM) MCHC [32.0-36.0 30.8 gm/dL gm/dL] *LOW* (04/12/15 12:38 AM) RDW [11.5-14.5 %] 16.7 % *HI* (04/12/15 12:38 AM) Platelet [150-400 256 10*3/uL 10*3/uL] (04/12/15 12:38 AM) MPV [9.4-12.4 fL] 9.9 fL (04/12/15 12:38 AM) Immature 0.2 % Granulocytes (04/12/1538 ) [0.0-1.0 %] Neutrophils [51-75 62 % %] (04/12/15 12:38 AM) Lymphocytes [20-46 26 % %] (04/12/15 12:38 AM) Monocytes [4-11 %] 10 % (04/12/15:38 AM) Eosinophils [0-4 %] 1 % (04/12/1538 AM) Basophils [0-2 %] 0 % (04/12/1538 AM) Neutro Absolute 5.36 10*3 [1.90-7.00 10*3] (04/12/15:38 AM) Lymph Absolute 2.23 10*3 [0.80-3.30 10*3] (04/12/15 12:38 AM) Perry Absolute 0.86 10*3 [0.30-1.00 10*3] (04/12/15 12:38 AM) Eos Absolute 0.11 10*3 [0.00-0.50 10*3] (04/12/15 12:38 AM) Baso Absolute 0.03 10*3 [0.00-0.20 10*3] (04/12/15 12:38 AM) Chemistry Most recent to 1 oldest [Reference Range]: Sodium Lvl [136-144 139 mEq/L mEq/L] (04/12/15 12:38 AM) Potassium Lvl 3.5 mEq/L [3.6-5.1 mEq/L] *LOW* (04/12/15:38 AM) Chloride [99-109 106 mEq/L mEq/L] (04/12/15 12:38 AM) CO2 [22-32 mEq/L] 26 mEq/L (04/12/15:38 AM) AGAP [3-20] 7 (6/27/15 12:38 AM) BUN [4-20 mg/dL] 8 mg/dL (04/12/15 12:38 AM) Glucose Lvl [70-100 111 mg/dL mg/dL] *HI* (04/12/15 12:38 AM) Creatinine Lvl 0.49 mg/dL [0.44-1.03 mg/dL] (04/12/15 12:38 AM) eGFR [>60] >60 1 (04/12/15 12:38 AM) Calcium Lvl 8.5 mg/dL [8.6-10.0 mg/dL] *LOW* (04/12/15 12:38 AM) Albumin Lvl [3.5-4.8 3.1 gm/dL gm/dL] *LOW* (04/12/15 12:38 AM) Total Protein 6.6 gm/dL [6.1-7.9 gm/dL] (04/12/15 12:38 AM) Globulin [1.9-4.3 3.5 gm/dL gm/dL] (04/12/15 12:38 AM) ALT [14-54 U/L] 13 U/L *LOW* (04/12/15 12:38 AM) AST [15-41 U/L] 13 U/L *LOW* (04/12/15 12:38 AM) Alk Phos [26-104 81 U/L U/L] (04/12/15 12:38 AM) Bili Total [0.2-1.2 0.3 mg/dL 2 mg/dL] (04/12/15 12:38 AM) Lipase Lvl [8-48 24 U/L U/L] (04/12/15 12:38 AM) 1Result Comment: Multiply eGFR results by 1.21 for race. 2Result Comment: Naproxen, specifically the metabolite O-desmethylnaproxen, may cause spurious elevation in Total Bilirubin levels. Urinalysis Most recent to 1 oldest [Reference Range]: UA Color Yellow (04/12/15 12:38 AM) UA Appear Clear (04/12/15 12:38 AM) UA pH [5.0-8.0] 7.0 (04/12/15 12:38 AM) UA Leuk Est Trace [Negative] *ABN* (04/12/15 12:38 AM) UA Nitrite Negative [Negative] (04/12/15 12:38 AM) UA Protein Negative [Negative] (04/12/15 12:38 AM) UA Glucose Negative [Negative] (04/12/15 12:38 AM) UA Ketones Trace [Negative] *ABN* (04/12/15 12:38 AM) UA Urobilinogen 1.0 mg/dL [<1.0 mg/dL] (04/12/15 12:38 AM) UA Bili [Negative] Positive *ABN* (04/12/15 12:38 AM) UA Blood [Negative] Negative (04/12/15 12:38 AM) UA Spec Grav 1.028 [1.003-1.030] (04/12/15 12:38 AM) Type Clean Catch (04/12/15 12:38 AM) UA WBC [0-4] 0-2 (04/12/15 12:38 AM) UA RBC [0-2] 2-5 (04/12/15 12:38 AM) Epithelial Cells 0-2 (04/12/15 12:38 AM) UA Bacteria Rare (04/12/15 12:38 AM) UA Yeast Present *ABN* (04/12/15 12:38 AM) UA Mucous Present (04/12/15 12:38 AM) Immunizations Vaccine Date Refusal Reason pneumococcal 23-polyvalent vaccine 11/18/14 Procedures Procedure Date Related Diagnosis Body Site Esophagogastroduodenoscopy Balloon Dilat1 02/14/15 Examination Under Anesthesia2 02/14/15 Adenoidectomy Bilateral tubal ligation Bronchoscope Cardiac catheterization, combined right and left heart Tonsillectomy Tympanostomy [place] tooth 1auto-populated from documented surgical case 2auto-populated from documented surgical case Social History Social History Type Response Smoking Status Former smoker; Type: Cigarettes; Tobacco use per day: 1 Pack1 1quit 05/2015 Assessment and Plan No data available for this section
--- OUTSIDE RECORDS SUMMARY | 2017-01-20 22:15 | XMS REPORT | Referral Summary ---
Author Author [facility] Organization [facility] Address Unknown Phone Unavailable Care Team Providers Care Cleaners Name Role Phone Nisha Colindres Primary Care Physician [phone] Encounter [facility] [id number] Date(s): 11/30/16 - 11/30/16 [facility] [address] [place] [address] Discharge Diagnosis: Encounter for repeat administration of rabies vaccination Discharge Disposition: 01-Home or Self Care Attending Physician: Vance Lei MD Admitting Physician: Vance Lei MD Vital Signs Most recent to 1 oldest [Reference Range]: Temperature Oral 36.6 degC [35.8-37.3 degC] (11/30/16 1:59 PM) Peripheral Pulse 89 bpm Rate [60-100 bpm] (11/30/16 1:59 PM) Respiratory Rate 20 br/min [14-20 br/min] (11/30/16 1:59 PM) Blood Pressure 119/84 mmHg [90-140/60-90 mmHg] (11/30/16 1:59 PM) SpO2 98 % (11/30/16 1:59 PM) Problem List Condition Effective Dates Status [...] Daily, # 30 tabs, 6 Refill(s), Pharmacy: [facility] [id number], 1 tabs Oral Daily Start Date: 11/12/16 [...] combined right and left heart Tonsillectomy Tympanostomy [place] tooth 1auto-populated from documented surgical case 2auto-populated from documented surgical case 3auto-populated from documented surgical case 4auto-populated from documented surgical case 5auto-populated from documented surgical case Social History Social History Type Response Smoking Status Current every day smoker; Type: Cigarettes; Tobacco use per day: 1 Pack Assessment and Plan No data available for this section
--- OUTSIDE RECORDS SUMMARY | 2017-01-20 22:16 | XMS REPORT | Referral Summary ---
Author Author [facility] Organization [facility] Address Unknown Phone Unavailable Care Team Providers Care Solution Architect Name Role Phone [facility] Primary Care Physician Unavailable Encounter [facility] [id number] Date(s): 02/24/16 - 02/24/16 [facility] [address] [place] [address] [phone] Discharge Diagnosis: Non-cardiac chest pain Discharge Diagnosis: Pain, chronic Discharge Diagnosis: Hernia, hiatal Discharge Disposition: 01-Home or Self Care Attending Physician: Maxx Torres JR, MD Admitting Physician: Maxx Torres JR, MD Vital Signs Most recent to 1 oldest [Reference Range]: Temperature Oral 36.6 degC [35.8-37.3 degC] (02/24/16 1:00 PM) Peripheral Pulse 101 bpm Rate [60-100 bpm] *HI* (02/24/16 2:44 PM) Respiratory Rate 20 br/min [14-20 br/min] (02/24/16 2:44 PM) Blood Pressure 92/58 mmHg [90-140/60-90 mmHg] (02/24/16 2:44 PM) SpO2 96 % (02/24/16 2:44 PM) Problem List Condition Effective Dates Status [...] HOURS APART, # 1 unknown unit, eRx: [facility] [id number], INHALE 1 PUFF BY INHALATION ROUTE 2 [...] Daily, # 30 tabs, 5 Refill(s), Pharmacy: [facility] 06235, 1 tabs Oral Daily Start Date: 09/01/15 [...] # 30 tabs, 0 Refill(s) Start Date: 2/26/16 Status: Ordered olopatadine 0.1% ophthalmic solution See Instructions, 1 drop to affected eye daily prn, # 5 mL, 5 Refill(s), Pharmacy: [facility] Start Date: 02/02/16 Status: Ordered Pepcid 20 mg oral tablet 20 mg 1 tabs, Oral, BID, # 60 tabs, 0 Refill(s) Start Date: 09/14/15 Status: Ordered ProAir HFA 90 mcg/inh inhalation aerosol See Instructions, 2-4 puffs every 4-6 hrs prn., # 1 Each, 1 Refill(s), Pharmacy : [facility] [address] Start Date: 06/11/15 Status: Ordered Singulair qPM, 0 Refill(s) Start Date: 01/23/16 Status: Ordered Vitamin D3 1,000 Intl_Units, Oral, Daily, 0 Refill(s) Start Date: 10/26/14 Status: Ordered Results Coagulation Most recent to 1 oldest [Reference Range]: D-Dimer [0-600 821 ng{FEU}/mL 1 ng{FEU}/mL] *HI* (02/24/16 1:39 PM) 1Result Comment: A D Dimer result of <500 ng/mL FEU has a negative predictive value of approximately 100% for the exclusion of DVT and acute PE. Chemistry Most recent to 1 oldest [Reference Range]: Sodium Lvl [136-144 133 mEq/L mEq/L] *LOW* (02/24/16 1:39 PM) Potassium Lvl 3.7 mEq/L [3.6-5.1 mEq/L] (02/24/16 1:39 PM) Chloride [99-109 102 mEq/L mEq/L] (02/24/16 1:39 PM) CO2 [22-32 mEq/L] 23 mEq/L (02/24/16 1:39 PM) AGAP [3-20] 8 (02/24/16 1:39 PM) BUN [4-20 mg/dL] 8 mg/dL (02/24/16 1:39 PM) Glucose Lvl [70-100 99 mg/dL mg/dL] (02/24/16 1:39 PM) Creatinine Lvl 0.57 mg/dL [0.44-1.03 mg/dL] (02/24/16 1:39 PM) eGFR [>60] >60 1 (02/24/16 1:39 PM) Calcium Lvl 9.0 mg/dL [8.6-10.0 mg/dL] (02/24/16 1:39 PM) Troponin [<0.06 <0.05 ng/mL ng/mL] (02/24/16 1:39 PM) 1Result Comment: Multiply eGFR results by 1.21 for race. Immunizations Vaccine Date Refusal Reason pneumococcal 23-polyvalent vaccine 11/18/14 Procedures Procedure Date Related Diagnosis Body Site Esophagogastroduodenoscopy Foreign Body 01/06/16 Removal1 Procedure with Anesthesia2 01/06/16 Esophagogastroduodenoscopy Balloon Dilat3 02/14/15 Examination Under Anesthesia4 02/14/15 Adenoidectomy Bilateral tubal ligation Bronchoscope Cardiac catheterization, combined right and left heart Tonsillectomy Tympanostomy [place] tooth 1auto-populated from documented surgical case 2auto-populated [...]
--- OUTSIDE RECORDS SUMMARY | 2017-01-20 22:16 | XMS REPORT | Referral Summary ---
Author Author [facility] Organization [facility] Address Unknown Phone Unavailable Care Team Providers Care Boring Machine Operator Horizontal Name Role Phone [facility] Primary Care Physician Unavailable Encounter [facility] [id number] Date(s): 12/25/15 - 12/25/15 [facility] [address], [place] [address] Discharge Diagnosis: Otogenic otalgia of right ear Discharge Diagnosis: Sensorineural hearing loss of right ear Discharge Diagnosis: Enthesopathy Discharge Disposition: 01-Home or Self Care Attending [...] pain, # 300 mL, 0 Refill(s), Pharmacy: [id number], 10 mL Oral q6hr,PRN:as needed for pain Start Date: 12/24/14 Status: Ordered Advair Diskus 250 mcg-50 mcg inhalation powder See Instructions, INHALE 1 PUFF BY INHALATION ROUTE 2 TIMES EVERY DAY IN THE MORNING AND EVENING APPROXIMATELY 12 HOURS APART, # 1 unknown unit, eRx: [facility] [id number], INHALE 1 PUFF BY INHALATION ROUTE 2 [...] Daily, # 30 tabs, 5 Refill(s), Pharmacy: [facility] 48777, 1 tabs Oral Daily Start Date: 09/01/15 Status: Ordered codeine-guaiFENesin 10 mg-300 mg/5 mL oral liquid 5 mL, Oral, q6hr, as needed for cough, # 120 mL, 0 Refill(s) Start Date: 12/21/15 Status: Ordered Flonase 50 mcg/inh nasal spray 2 sprays, Nasal, Daily, # 1 Each, 5 Refill(s), Pharmacy: [facility] [id number] Start Date: 12/12/15 Status: Ordered ibuprofen 800 mg oral tablet 800 mg 1 tabs, Oral, TID, Pain, # 15 tabs, 0 Refill(s) Start Date: 12/07/15 Status: Ordered loratadine 10 mg oral tablet 10 mg, Oral, Daily, # 30 tabs, 5 Refill(s), Pharmacy: [facility] [id number] , 10 mg Oral Daily Start Date: [...] # 1 Each, 1 Refill(s), [facility] : [facility] [address] Start Date: 06/11/15 Status: Ordered Robitussin DM To Go 20 mg-200 mg/10 mL oral liquid 10 mL, Oral, q4hr, as needed for cough, # 100 mL, 0 Refill(s), Pharmacy: [facility] [address] Start Date: 12/12/15 Status: Ordered traZODone Oral, [...] combined right and left heart Tonsillectomy Tympanostomy [place] tooth 1auto-populated from documented surgical case 2auto-populated from documented surgical case Social History Social History Type Response Smoking Status Former smoker; Type: Cigarettes; Tobacco use per day: 1 Pack1 , 2 1pt quit smoking 1 month ago 2quit 05/2015 Assessment and Plan Extracted from: Title: Ambulatory Patient Education Author: Rafael Katz MD Date: 12/25/15 No follow up information was provided."
--- OUTSIDE RECORDS SUMMARY | 2017-01-20 22:16 | XMS REPORT | Referral Summary ---
Author Author [facility] Organization [facility] Address Unknown Phone Unavailable Care Team Providers Care Cantilever Crane Operator Name Role Phone [facility] Primary Care Physician Unavailable Encounter [facility] [id number] Date(s): 02/01/16 - 02/01/16 [facility] [address] [place] [address] [phone] Discharge Diagnosis: Chronic back pain Discharge Diagnosis: Back muscle spasm Discharge Disposition: 01-Home or Self Care Attending Physician: Vance Lei MD Admitting Physician: Vance Lei MD Vital Signs Most recent to 1 oldest [Reference Range]: Temperature Oral 36.5 degC [35.8-37.3 degC] (02/01/16 10:43 AM) Peripheral Pulse 96 bpm Rate [60-100 bpm] (02/01/16 10:43 AM) Respiratory Rate 20 br/min [14-20 br/min] (02/01/16 10:43 AM) Blood Pressure 94/66 mmHg [90-140/60-90 mmHg] (02/01/16 10:43 AM) SpO2 97 % (02/01/16 10:43 AM) Problem List Condition Effective Dates Status [...] pain, # 300 mL, 0 Refill(s), Pharmacy: [id number], 10 mL Oral q6hr,PRN:as needed for pain [...] HOURS APART, # 1 unknown unit, eRx: [facility] [id number], INHALE 1 PUFF BY INHALATION ROUTE 2 [...] Daily, # 30 tabs, 5 Refill(s), Pharmacy: [facility] 07408, 1 tabs Oral Daily Start Date: 09/01/15 [...] Date: 01/30/16 Stop Date: 01/29/17 Status: Ordered cyclobenzaprine 10 mg oral tablet 10 mg 1 tabs, Oral, TID, as needed for spasm, # 12 tabs, 0 Refill(s) Start Date: 02/01/16 Stop Date: 02/02/16 Status: Ordered Flonase 50 mcg/inh nasal spray 2 sprays, Nasal, Daily, # 1 Each, 5 Refill(s), Pharmacy: [facility] [address] Start Date: 12/12/15 Status: Ordered ibuprofen 800 mg oral tablet 800 mg 1 tabs, Oral, TID, Pain, # 15 tabs, 0 Refill(s) Start Date: 12/07/15 Status: Ordered loratadine 0 Refill(s) Start Date: 01/23/16 Status: Ordered loratadine 10 mg oral tablet 10 mg, Oral, Daily, # 30 tabs, 5 Refill(s), Pharmacy: [facility] [address] , 10 mg Oral Daily Start Date: 01/14/15 Status: Ordered meloxicam 15 mg oral tablet 15 mg 1 tabs, Oral, Daily, # 30 tabs, 0 Refill(s) Start Date: 12/12/15 Status: Ordered Mobic 7.5 mg oral tablet 7.5 mg 1 tabs, Oral, Daily, # 7 tabs, 0 Refill(s), Pharmacy: [facility], 1 tabs Oral Daily,x7 [...] # 1 Each, 1 Refill(s), Pharmacy : [facility] 00272 Start Date: 06/11/15 Status: Ordered Robitussin DM To Go 20 mg-200 mg/10 mL oral liquid 10 mL, Oral, q4hr, as needed for cough, # 100 mL, 0 Refill(s), Pharmacy: [facility] 06404 Start Date: 12/12/15 Status: Ordered Singulair qPM, [...] combined right and left heart Tonsillectomy Tympanostomy [place] tooth 1auto-populated from documented surgical case 2auto-populated [...]
--- OUTSIDE RECORDS SUMMARY | 2017-01-20 22:16 | XMS REPORT | Referral Summary ---
Author Author [facility] Organization [facility] Address Unknown Phone Unavailable Care Team Providers Care Funder Name Role Phone [facility] Primary Care Physician Unavailable Encounter [facility] [id number] Date(s): 03/03/16 - 03/03/16 [facility] [address] [place] [address] [facility] Discharge Diagnosis: Bilateral lower abdominal pain Discharge Disposition: 01-Home or Self Care Attending Physician: Lilliana Mahoney APRN Attending Physician: Provider, Immediate Care Admitting Physician: Provider, Immediate Care Vital Signs Most recent to 1 oldest [Reference Range]: Temperature Oral 37.0 degC [35.8-37.3 degC] (03/03/16 7:25 PM) Peripheral Pulse 108 bpm Rate [60-100 bpm] *HI* (03/03/16 7:25 PM) Blood Pressure 118/78 mmHg [90-140/60-90 mmHg] (03/03/16 7:25 PM) SpO2 97 % (03/03/16 7:25 PM) Problem List Condition Effective Dates Status [...] HOURS APART, # 1 unknown unit, eRx: [facility] [id number], INHALE 1 PUFF BY INHALATION ROUTE 2 TIMES EVERY DAY IN THE MORNING AND EV... Start Date: 02/25/15 Status: Ordered Carafate 1 g/10 mL oral suspension 10 mL, Oral, QIDACHS, # 280 mL, 0 Refill(s), Pharmacy: [facility], 10 mL Oral QIDACHS Start Date: 02/15/16 Status: Ordered cetirizine 10 mg oral tablet 10 mg 1 tabs, Oral, Daily, # 30 tabs, 5 Refill(s), Pharmacy: [facility] 37256, 1 tabs Oral Daily Start Date: 09/01/15 Status: Ordered Claritin mg, 0 Refill(s) Start Date: 01/23/16 Status: Ordered cyclobenzaprine 10 mg oral tablet 10 mg 1 tabs, Oral, TID, as needed for spasm, # 12 tabs, 0 Refill(s) Start Date: 01/30/16 Stop Date: 01/29/17 Status: Ordered Invega Oral, qAM, 0 Refill(s) Start Date: 03/03/16 Status: Ordered loratadine 0 Refill(s) Start Date: 01/23/16 Status: Ordered meloxicam 15 mg oral tablet 15 mg 1 tabs, Oral, Daily, # 30 tabs, 0 Refill(s) Start Date: 12/12/15 Status: Ordered ProAir HFA 90 mcg/inh inhalation aerosol See Instructions, 2-4 puffs every 4-6 hrs prn., # 1 Each, 1 Refill(s), Pharmacy : [facility] Start Date: 06/11/15 Status: Ordered Singulair qPM, [...] combined right and left heart Tonsillectomy Tympanostomy [place] tooth 1auto-populated from documented surgical case 2auto-populated [...] Extracted from: Title: Office Visit Note Author: Lilliana Mahoney RIVER TRANSPORTATION WORKER Date: 03/03/16 Assessment/Plan 1.Bilateral lower abdominal pain Discussed patient thatwe can do lab work here,butwe do not have CT scan or ultrasound available at this time of night.Since she moderately tenderwith some guarding, cannot rule out acute abdomen in immediate care and she may be better evaluated in the emergency room for this pain. Patient elects to go to the emergency room.She is stable to transport by private vehicle. Patient to go to [facility] ER for further evaluation. Ordered: Office Visit Level 3 Est 10546
--- OUTSIDE RECORDS SUMMARY | 2017-01-20 22:16 | XMS REPORT | Referral Summary ---
Author Author [facility] Organization [facility] Address Unknown Phone Unavailable Care Team Providers Care Battery Tester Name Role Phone Imelda Martin Primary Care Physician [phone] Encounter [facility] Date(s): 05/10/15 - 05/10/15 [facility] [address] [place] [address] [facility] Discharge Diagnosis: Seizure disorder Final: TIETZE'S DISEASE Final: TOBACCO USE DISORDER Discharge Diagnosis: Acute costochondritis Discharge Diagnosis: Noncompliance with medication regimen Discharge Disposition: 01-Home or Self Care Attending Physician: Jefferson Patricio MD Admitting Physician: Jefferson Patricio MD Vital Signs Most recent to 1 oldest [Reference Range]: Temperature Oral 37.1 degC [35.8-37.3 degC] (05/10/15 1:35 PM) Peripheral Pulse 75 bpm Rate [60-100 bpm] (05/10/15 4:22 PM) Heart Rate Monitored 75 bpm [60-100 bpm] (05/10/15 4:10 PM) Respiratory Rate 14 br/min [14-20 br/min] (05/10/15 4:22 PM) Blood Pressure 102/77 mmHg [90-140/60-90 mmHg] (05/10/15 4:22 PM) Mean Arterial 88 mmHg Pressure, Cuff (05/10/15 4:10 PM) SpO2 98 % (05/10/15 4:22 PM) Problem List Condition Effective Dates Status [...] pain, # 300 mL, 0 Refill(s), Pharmacy: [facility] 288[facility], 10 mL Oral q6hr,PRN:as needed for pain Start Date: 12/24/14 Status: Ordered Advair Diskus 250 mcg-50 mcg inhalation powder See Instructions, INHALE 1 PUFF BY INHALATION ROUTE 2 TIMES EVERY DAY IN THE MORNING AND EVENING APPROXIMATELY 12 HOURS APART, # 1 unknown unit, eRx: [facility] [id number], INHALE 1 PUFF BY INHALATION ROUTE 2 TIMES EVERY DAY IN THE MORNING AND EV... Start Date: 02/25/15 Status: Ordered Atrovent 42 mcg/inh nasal spray 2 sprays, Nasal, TID, # 2 Each, 5 Refill(s), Pharmacy: [facility] [id number] Start Date: 06/11/15 Stop Date: 06/11/16 Status: Ordered Carafate 1 g oral tablet 1 g 1 tabs, Oral, QID, Dissolve in water and drink, # 40 tabs, 0 Refill(s) Start Date: 08/31/15 Status: Ordered cetirizine 10 mg oral tablet 10 mg 1 tabs, Oral, Daily, # 30 tabs, 5 Refill(s), Pharmacy: [facility] 26940, 1 tabs Oral Daily Start Date: 09/01/15 Status: Ordered Linzess 290 mcg oral capsule 1 caps, Oral, Daily, # 30 caps, 6 Refill(s), Pharmacy: [facility] [address], 1 caps Oral Daily Start Date: 02/24/15 Status: Ordered loratadine 10 mg oral tablet 10 mg, Oral, Daily, # 30 tabs, 5 Refill(s), [facility] , 10 mg Oral Daily Start Date: [...] # 1 Each, 1 Refill(s), Pharmacy : [facility] 59789 Start Date: 06/11/15 Status: Ordered Sudafed 12-Hour [...] oldest [Reference Range]: Screen, Negative Urine NPT (05/10/15 3:15 PM) Immunizations Vaccine Date Refusal Reason pneumococcal 23-polyvalent vaccine 11/18/14 Procedures Procedure Date Related Diagnosis Body Site Esophagogastroduodenoscopy Balloon Dilat1 02/14/15 Examination Under Anesthesia2 02/14/15 Adenoidectomy Bilateral tubal ligation Bronchoscope Cardiac catheterization, combined right and left heart Tonsillectomy Tympanostomy [place] tooth 1auto-populated from documented surgical case 2auto-populated from documented surgical case Social History Social History Type Response Smoking Status Never smoker Assessment and Plan No data available for this section
--- OUTSIDE RECORDS SUMMARY | 2017-01-20 22:16 | XMS REPORT | Referral Summary ---
Author Author [facility] Organization [facility] Address Unknown Phone Unavailable Care Team Providers Care Chief Engineer Waterworks Name Role Phone Indio [facility] Primary Care Physician Unavailable Encounter [facility] TEJADA [id number] Date(s): 03/07/16 - 03/07/16 [facility] [address] [place], [place] [address] Discharge Diagnosis: Vomiting Discharge Disposition: 01-Home or Self Care Attending Physician: Jefferson Patricio MD Admitting Physician: Jefferson Patricio MD Vital Signs Most recent to 1 oldest [Reference Range]: Temperature Oral 36.9 degC [35.8-37.3 degC] (03/07/16 10:58 AM) Peripheral Pulse 79 bpm Rate [60-100 bpm] (03/07/16 12:29 PM) Respiratory Rate 16 br/min [14-20 br/min] (03/07/16 12:29 PM) Blood Pressure 109/74 mmHg [90-140/60-90 mmHg] (03/07/16 12:29 PM) SpO2 98 % (03/07/16 12:29 PM) Problem List Condition Effective Dates Status [...] HOURS APART, # 1 unknown unit, eRx: [facility] [id number], INHALE 1 PUFF BY INHALATION ROUTE 2 TIMES EVERY DAY IN THE MORNING AND EV... Start Date: 02/25/15 Status: Ordered Carafate 1 g/10 mL oral suspension 10 mL, Oral, QIDACHS, # 280 mL, 0 Refill(s), Pharmacy: [facility], 10 mL Oral QIDACHS Start Date: 02/15/16 Status: Ordered cetirizine 10 mg oral tablet 10 mg 1 tabs, Oral, Daily, # 30 tabs, 5 Refill(s), Pharmacy: [facility] 68401, 1 tabs Oral Daily Start Date: 09/01/15 [...] Refill(s), Pharmacy : [facility] [address] Start Date: 06/11/15 Status: Ordered promethazine 25 [...] Range]: Sodium Venous 140 mEq/L [136-144 mEq/L] (03/07/16 12:02 PM) Potassium Venous 5.2 mEq/L 1 [3.6-5.1 mEq/L] *HI* (03/07/16 12:02 PM) Calcium Ionized 1.07 mmol/L Venous [1.19-1.41 *LOW* mmol/L] (03/07/16 12:02 PM) Total CO2 Venous 20 mEq/L [25-29 mEq/L] *LOW* (03/07/16 12:02 PM) HGB Venous NPT 11.2 gm/dL [12.0-16.0 gm/dL] *LOW* (03/07/16 12:02 PM) HCT Venous 33.0 % [37.0-47.0 %] *LOW* (03/07/16 12:02 PM) Glucose Venous 78 mg/dL [70-100 mg/dL] (03/07/16 12:02 PM) BUN Venous [4-20] 10 (03/07/16 12:02 PM) Creatinine Venous 0.5 mg/dL [0.4-1.0 mg/dL] (03/07/16 12:02 PM) Venous CL [99-109 111 mEq/L mEq/L] *HI* (03/07/16 12:02 PM) Anion Gap, Darron 9 [3-20] (03/07/16 12:02 PM) Screen, Negative Urine NPT (03/07/16 12:00 PM) 1Result Comment: This test was performed [...] combined right and left heart Tonsillectomy Tympanostomy [place] tooth 1auto-populated from documented surgical case 2auto-populated [...]
--- OUTSIDE RECORDS SUMMARY | 2017-01-20 22:16 | XMS REPORT | Referral Summary ---
Author Author [facility] Organization [facility] Address Unknown Phone Unavailable Care Team Providers Care Cosmetics Supervisor Name Role Phone Imelda Martin Primary Care Physician [phone] Encounter VC Date(s): 04/29/15 - 04/30/15 [facility] [address] [place] [address] [place] [phone] Final: LEUKORRHEA, NOT SPECIFIED INFECTIVE Final: UNSPECIFIED SYMPTOM ASSOCIATED WITH FEMALE GENITAL ORGANS Final: TOBACCO USE DISORDER Discharge Diagnosis: Purulent Vaginal Discharge Discharge Disposition: 01-Home or Self Care Attending Physician: Demarcus Burrell MD Admitting Physician: Demarcus Burrell MD Vital Signs Most recent to 1 oldest [Reference Range]: Temperature Oral 37.2 degC [35.8-37.3 degC] (04/29/15 11:14 PM) Peripheral Pulse 98 bpm Rate [60-100 bpm] (04/30/15 9:46 AM) Heart Rate Monitored 79 bpm [60-100 bpm] (04/30/15 7:14 AM) Respiratory Rate 18 br/min [14-20 br/min] (04/30/15 9:46 AM) Blood Pressure 117/81 mmHg [90-140/60-90 mmHg] (04/30/15 9:46 AM) Mean Arterial 94 mmHg Pressure, Cuff (04/30/15 7:14 AM) SpO2 99 % (04/30/15 9:46 AM) Problem List Condition Effective Dates Status [...] pain, # 300 mL, 0 Refill(s), Pharmacy: [facility] [id number], 10 mL Oral q6hr,PRN:as needed for pain Start Date: 12/24/14 Status: Ordered Advair Diskus 250 mcg-50 mcg inhalation powder See Instructions, INHALE 1 PUFF BY INHALATION ROUTE 2 TIMES EVERY DAY IN THE MORNING AND EVENING APPROXIMATELY 12 HOURS APART, # 1 unknown unit, eRx: [facility] 95454, INHALE 1 PUFF BY INHALATION ROUTE 2 TIMES EVERY DAY IN THE MORNING AND EV... Start Date: 02/25/15 Status: Ordered Atrovent 42 mcg/inh nasal spray 2 sprays, Nasal, TID, # 2 Each, 5 Refill(s), Pharmacy: [facility] [id number] Start Date: 06/11/15 Stop Date: 06/11/16 Status: Ordered Carafate 1 g oral tablet 1 g 1 tabs, Oral, QID, Dissolve in water and drink, # 40 tabs, 0 Refill(s) Start Date: 08/31/15 Status: Ordered cetirizine 10 mg oral tablet 10 mg 1 tabs, Oral, Daily, # 30 tabs, 5 Refill(s), Pharmacy: [facility] 18099, 1 tabs Oral Daily Start Date: 09/01/15 Status: Ordered Linzess 290 mcg oral capsule 1 caps, Oral, Daily, # 30 caps, 6 Refill(s), Pharmacy: [id number], 1 caps Oral Daily Start Date: 02/24/15 Status: Ordered loratadine 10 mg oral tablet 10 mg, Oral, Daily, # 30 tabs, 5 Refill(s), Pharmacy: [facility] [address] , 10 mg Oral Daily Start Date: [...] 1 Refill(s), Pharmacy : [facility] [address] Start Date: 06/11/15 Status: Ordered traZODone Oral, 0 Refill(s) Start Date: 04/05/15 Status: Ordered Viibryd Oral, Daily, 0 Refill(s) Start Date: 04/05/15 Status: Ordered Vitamin D3 1,000 Intl_Units, Oral, Daily, 0 Refill(s) Start Date: 10/26/14 Status: Ordered Results Chemistry Most recent to 1 oldest [Reference Range]: Screen, Negative Urine NPT (04/30/15 9:12 AM) Urinalysis Most recent to 1 oldest [Reference Range]: UA Color Yellow (04/30/15 9:08 AM) UA Appear Clear (04/30/15 9:08 AM) UA pH [5.0-8.0] 6.5 (04/30/15 9:08 AM) UA Leuk Est Negative [Negative] (04/30/15 9:08 AM) UA Nitrite Negative [Negative] (04/30/15 9:08 AM) UA Protein Negative [Negative] (04/30/15 9:08 AM) UA Glucose Negative [Negative] (04/30/15 9:08 AM) UA Ketones Negative [Negative] (04/30/15 9:08 AM) UA Urobilinogen Negative [<1.0] (04/30/15 9:08 AM) UA Bili [Negative] Negative (04/30/15 9:08 AM) UA Blood [Negative] Trace *ABN* (04/30/15 9:08 AM) UA Spec Grav 1.016 [1.003-1.030] (04/30/15 9:08 AM) Type Clean Catch (04/30/15 9:08 AM) UA WBC [0-4] 2-5 (04/30/15 9:08 AM) UA RBC [0-2] None seen (04/30/15 9:08 AM) Epithelial Cells 2-5 (04/30/15 9:08 AM) UA Bacteria Occasional *ABN* (04/30/15 9:08 AM) UA Mucous Present (04/30/15 9:08 AM) Microbiology Reports TEST: Affirm Vaginitis Panel STATUS: Auth (Verified) BODY SITE: SOURCE: Cervix/Vaginal COLLECTED DATE/TIME: 04/30/15 9:08 AM Affirm Vaginitis Panel Negative for Trichomonas vaginalis Negative for Gardnerella vaginalis Negative for Velma species Immunizations Vaccine Date Refusal Reason pneumococcal 23-polyvalent vaccine 11/18/14 Procedures Procedure Date Related Diagnosis Body Site Esophagogastroduodenoscopy Balloon Dilat1 02/14/15 Examination Under Anesthesia2 02/14/15 Adenoidectomy Bilateral tubal ligation Bronchoscope Cardiac catheterization, combined right and left heart Tonsillectomy Tympanostomy [place] tooth 1auto-populated from documented surgical case 2auto-populated from documented surgical case Social History Social History Type Response Smoking Status Never smoker Assessment and Plan No data available for this section
--- OUTSIDE RECORDS SUMMARY | 2017-01-20 22:16 | XMS REPORT | Referral Summary ---
Author Author [facility], [facility] Organization [facility] Address Unknown Phone Unavailable Care Team Providers Care Spring Repairer Helper Hand Name Role Phone Imelda Martin Primary Care Physician [phone] Encounter Date(s): 02/17/15 - 02/17/15 [facility] [address] [place] [address] [facility] Discharge Diagnosis: Shortness of breath Discharge Diagnosis: Lightheadedness Discharge Disposition: 01-Home or Self Care Attending Physician: Olinda Garcias Attending Physician: Provider, Immediate Care Admitting Physician: Provider, Immediate Care Vital Signs Most recent to 1 oldest [Reference Range]: Temperature Oral 37.0 degC [35.8-37.3 degC] (02/17/15 3:06 PM) Peripheral Pulse 90 bpm Rate [60-100 bpm] (02/17/15 3:06 PM) Blood Pressure 126/80 mmHg [90-140/60-90 mmHg] (02/17/15 3:06 PM) SpO2 100 % (02/17/15 3:06 PM) Problem List Condition Effective Dates Status [...] pain, # 300 mL, 0 Refill(s), Pharmacy: [facility] 56191, 10 mL Oral q6hr,PRN:as needed for pain Start Date: 12/24/14 Status: Ordered Advair Diskus 250 mcg-50 mcg inhalation powder See Instructions, INHALE 1 PUFF BY INHALATION ROUTE 2 TIMES EVERY DAY IN THE MORNING AND EVENING APPROXIMATELY 12 HOURS APART, # 1 unknown unit, eRx: [facility] 25498, INHALE 1 PUFF BY INHALATION ROUTE 2 TIMES EVERY DAY IN THE MORNING AND EV... Start Date: 02/25/15 Status: Ordered albuterol 2.5 mg/3 mL (0.083%) inhalation solution 3 mL, Inhalation, q6hr (scheduled), # 60 Each, 1 Refill(s), Pharmacy: [facility] 34759, 3 mL Inhalation q6hr (scheduled) Start Date: 02/13/15 Status: Ordered Atrovent 42 mcg/inh nasal spray 2 sprays, Nasal, TID, # 2 Each, 5 Refill(s), Pharmacy: [facility] 65[address] Start Date: 06/11/15 Stop Date: 06/11/16 Status: Ordered Chloraseptic Bowen 1.4% topical spray 5 sprays, Oral, q2hr, # 10 mL, 0 Refill(s) Start Date: 08/11/15 Stop Date: 08/11/16 Status: Ordered levETIRAcetam 500 mg oral tablet See Instructions, TAKE 3 TABLETS BY MOUTH TWICE DAILY, # 180 tabs, 12 Refill(s) , eRx: [facility] [id number], TAKE 3 TABLETS BY MOUTH TWICE DAILY Start Date: 02/27/15 Status: Ordered Levsin 0.125 mg oral tablet 0.125 mg 1 tabs, Oral, QID, # 15 tabs, 0 Refill(s) Start Date: 08/27/15 Status: Ordered Linzess 290 mcg oral capsule 1 caps, Oral, Daily, # 30 caps, 6 Refill(s), Pharmacy: [facility] [id number], 1 caps Oral Daily Start Date: 02/24/15 Status: Ordered loratadine 10 mg oral tablet 10 mg, Oral, Daily, # 30 tabs, 5 Refill(s), Pharmacy: [facility] [id number] , 10 mg Oral Daily Start Date: [...] # 1 Each, 1 Refill(s), Pharmacy : [facility] [address] Start Date: 06/11/15 Status: Ordered traZODone Oral, [...] recent to 1 oldest [Reference Range]: WBC [5.0-10.0 8.0 10*3/uL 10*3/uL] (02/17/15 4:45 PM) RBC [3.70-5.20 4.70 10*6/uL 10*6/uL] (02/17/15 4:45 PM) Hgb [12.0-16.0 13.1 gm/dL gm/dL] (02/17/15 4:45 PM) Hct [37.0-47.0 %] 41.5 % (02/17/15 4:45 PM) MCV [80.0-96.0 fL] 88.3 fL (02/17/15 4:45 PM) MCH [26.0-34.0 pg] 27.9 pg (02/17/15 4:45 PM) MCHC [32.0-36.0 31.6 gm/dL gm/dL] *LOW* (02/17/15 4:45 PM) RDW [0.0-14.5 %] 16.7 % *HI* (02/17/15 4:45 PM) Platelet [150-400 262 10*3/uL 10*3/uL] (02/17/15 4:45 PM) MPV [8.8-14.8 fL] 9.4 fL (02/17/15 4:45 PM) Neutrophils [50-70 68 % %] (02/17/15 4:45 PM) Lymphocytes [20-40 23 % %] (02/17/15 4:45 PM) Monocytes [4-8 %] 6 % (02/17/15 4:45 PM) Eosinophils [0-6 %] 1 % (02/17/15 4:45 PM) Basophils [0-2 %] 1 % (02/17/15 4:45 PM) Neutro Absolute 5.47 10*3/uL [2.50-7.00 10*3/uL] (02/17/15 4:45 PM) Lymph Absolute 1.86 10*3/uL [1.00-4.00 10*3/uL] (02/17/15 4:45 PM) [place] Absolute 0.48 10*3/uL [0.20-0.80 10*3/uL] (02/17/15 4:45 PM) Eos Absolute 0.10 10*3/uL [0.00-0.60 10*3/uL] (02/17/15 4:45 PM) Baso Absolute 0.11 10*3/uL [0.00-0.30 10*3/uL] (02/17/15 4:45 PM) Chemistry Most recent to 1 oldest [Reference Range]: Sodium Lvl [136-145 139 mEq/L mEq/L] (02/17/15 4:45 PM) Potassium Lvl 4.0 mEq/L [3.5-5.1 mEq/L] (02/17/15 4:45 PM) Chloride [98-107 106 mEq/L mEq/L] (02/17/15 4:45 PM) CO2 [21-31 mEq/L] 26 mEq/L (02/17/15 4:45 PM) BUN [7-25 mg/dL] 6 mg/dL *LOW* (02/17/15 4:45 PM) Glucose Lvl [70-100 78 mg/dL mg/dL] (02/17/15 4:45 PM) Creatinine Lvl 0.61 mg/dL [0.60-1.20 mg/dL] (02/17/15 4:45 PM) eGFR [>60 mL/min] >60 mL/min 1 (02/17/15 4:45 PM) Calcium Lvl 9.8 mg/dL [8.8-10.6 mg/dL] (02/17/15 4:45 PM) 1Result Comment: Multiply eGFR results by 1.21 for race. Immunizations Vaccine Date Refusal Reason pneumococcal 23-polyvalent vaccine 11/18/14 Procedures Procedure Date Related Diagnosis Body Site Esophagogastroduodenoscopy Balloon Dilat1 02/14/15 Examination Under Anesthesia2 02/14/15 Adenoidectomy Bilateral tubal ligation Bronchoscope Cardiac catheterization, combined right and left heart Tonsillectomy Tympanostomy [place] tooth 1auto-populated from documented surgical case 2auto-populated from documented surgical case Social History Social History Type Response Smoking Status Former smoker; Type: Cigarettes; Tobacco use per day: 1 Pack1 1quit 05/2015 Assessment and Plan Extracted from: Title: Office Visit Note Author: Olinda Garcias Date: 02/17/15 Assessment/Plan 1.Shortness of breath XR Chest: Impression: 1: There is no radiographic evidence of acute cardiopulmonary process. 2: Small to moderate-sized hiatal hernia. Discussed with patient the x-ray did not show any pneumonias. Instructed patient to continue her inhalers as prescribed. Ordered: Office Visit Level 3 Est 40355 2.Lightheadedness Complete Blood Count Hgb: 13.1 gm/dL (02/17/15 16:48:44) Hct: 41.5 % (02/17/15 16:48:44) RBC: 4.70 10*6/uL (02/17/15 16:48:44) WBC: 8.0 10*3/uL (02/17/15 16:48:44) Platelet: 262 10*3/uL (02/17/15 16:48:44) Basic Metabolic Panel Glucose Lvl: 78 mg/dL (02/17/15 17:08:25) BUN: 6 mg/dL Low (02/17/15 17:08:25) Creatinine Lvl: 0.61 mg/dL (02/17/15 17:08:25) Calcium Lvl: 9.8 mg /dL (02/17/15 17:08:25) Sodium Lvl: 139 mEq/L (02/17/15 17:08:25) Potassium Lvl: 4.0 mEq/L (02/17/15 17:08:25) Chloride: 106 mEq/L (02/17/15 17:08:25) CO2: 26 mEq/L (02/17/15 17:08:25) Instructed patient if symptoms worsen or new symptoms arise to seek medical attention here or at the ER. Instructed patient if symptoms do not improve follow up with PCP in 2-3 days. Patient voiced understanding and agreed with treatment plan. Ordered: Office Visit Level 3 Est 87712
--- OUTSIDE RECORDS SUMMARY | 2017-01-20 22:16 | XMS REPORT | Referral Summary ---
Author Author [facility] Organization [facility] Address Unknown Phone Unavailable Care Team Providers Care Biological Inspector Name Role Phone Imelda Martin Primary Care Physician [phone] Encounter [facility] [id number] Date(s): 05/17/16 - 05/17/16 [facility] [address] [place] [address] Discharge Diagnosis: Acute UTI Discharge Disposition: 01-Home or Self Care Attending Physician: Vance Lei MD Admitting Physician: Vance Lei MD Vital Signs Most recent to 1 oldest [Reference Range]: Temperature Oral 36.6 degC [35.8-37.3 degC] (05/17/16 4:05 PM) Peripheral Pulse 78 bpm Rate [60-100 bpm] (05/17/16 6:55 PM) Blood Pressure 96/68 mmHg [90-140/60-90 mmHg] (05/17/16 6:55 PM) SpO2 97 % (05/17/16 6:55 PM) Problem List Condition Effective Dates Status [...] HOURS APART, # 1 unknown unit, eRx: [facility] [address], INHALE 1 PUFF BY INHALATION ROUTE 2 TIMES EVERY DAY IN THE MORNING AND EV... Start Date: 02/25/15 Status: Ordered Carafate 1 g/10 mL oral suspension 10 mL, Oral, QIDACHS, # 280 mL, 0 Refill(s), Pharmacy: [facility], 10 mL Oral QIDACHS Start [...] # 14 caps, 0 Refill(s) Start Date: 05/17/16 Stop Date: 05/24/16 Status: Ordered Macrobid 100 mg oral capsule 100 mg 1 caps, Oral, BID, X 7 days, # 14 caps, 0 Refill(s) Start Date: 05/16/16 Stop Date: 05/23/16 Status: Ordered ProAir HFA 90 mcg/inh inhalation aerosol See Instructions, 2-4 puffs every 4-6 hrs prn., # 1 Each, 1 Refill(s), Pharmacy : [facility] [address] Start Date: 06/11/15 Status: Ordered promethazine 25 [...] [Reference Range]: WBC [4.8-10.8 8.6 10*3/uL 10*3/uL] (05/17/16 4:29 PM) RBC [4.00-5.20] 4.48 (05/17/16 4:29 PM) Hgb [12.0-16.0 11.0 gm/dL gm/dL] *LOW* (05/17/16 4:29 PM) Hct [37.0-47.0 %] 35.4 % *LOW* (05/17/16 4:29 PM) MCV [82.0-99.0 fL] 79.0 fL *LOW* (05/17/16 4:29 PM) MCH [27.0-32.0 pg] 24.6 pg *LOW* (05/17/16 4:29 PM) MCHC [32.0-36.0 31.1 gm/dL gm/dL] *LOW* (05/17/16 4:29 PM) RDW [11.5-14.5 %] 18.0 % *HI* (05/17/16 4:29 PM) Platelet [150-400 206 10*3/uL 10*3/uL] (05/17/16 4:29 PM) MPV [9.4-12.4 fL] 9.4 fL (05/17/16 4:29 PM) Immature 0.1 % Granulocytes (05/17/16 4:29 PM) [0.0-1.0 %] Neutrophils [51-75 76 % %] *HI* (05/17/16 4:29 PM) Lymphocytes [20-46 18 % %] *LOW* (05/17/16 4:29 PM) Monocytes [4-11 %] 5 % (05/17/16 4:29 PM) Eosinophils [0-4 %] 1 % (05/17/16 4:29 PM) Basophils [0-2 %] 0 % (05/17/16 4:29 PM) Neutro Absolute 6.53 10*3 [1.90-7.00 10*3] (05/17/16 4:29 PM) Lymph Absolute 1.56 10*3 [0.80-3.30 10*3] (05/17/16 4:29 PM) [place] Absolute 0.43 10*3 [0.30-1.00 10*3] (05/17/16 4:29 PM) Eos Absolute 0.07 10*3 [0.00-0.50 10*3] (05/17/16 4:29 PM) Baso Absolute 0.01 10*3 [0.00-0.20 10*3] (05/17/16 4:29 PM) Nucleated RBC 0.0 /100 WBC Automated [0 /100 (05/17/16 4:29 PM) WBC] Chemistry Most recent to 1 oldest [Reference Range]: Sodium Lvl [136-144 138 mEq/L mEq/L] (05/17/16 4:29 PM) Potassium Lvl 3.9 mEq/L [3.6-5.1 mEq/L] (05/17/16 4:29 PM) Chloride [99-109 111 mEq/L mEq/L] *HI* (05/17/16 4:29 PM) CO2 [22-32 mEq/L] 21 mEq/L *LOW* (05/17/16 4:29 PM) AGAP [3-20] 6 (05/17/16 4:29 PM) BUN [4-20 mg/dL] 9 mg/dL (05/17/16 4:29 PM) Glucose Lvl [70-100 85 mg/dL mg/dL] (05/17/16 4:29 PM) Creatinine Lvl 0.73 mg/dL [0.44-1.03 mg/dL] (05/17/16 4:29 PM) eGFR [>60] >60 1 (05/17/16 4:29 PM) Calcium Lvl 9.0 mg/dL [8.6-10.0 mg/dL] (05/17/16 4:29 PM) Albumin Lvl [3.5-4.8 3.6 gm/dL gm/dL] (05/17/16 4:29 PM) Total Protein 7.2 gm/dL [6.1-7.9 gm/dL] (05/17/16 4:29 PM) Globulin [1.9-4.3 3.6 gm/dL gm/dL] (05/17/16 4:29 PM) ALT [14-54 U/L] 14 U/L (05/17/16 4:29 PM) AST [15-41 U/L] 15 U/L (05/17/16 4:29 PM) Alk Phos [26-104 94 U/L U/L] (05/17/16 4:29 PM) Bili Total [0.2-1.2 0.6 mg/dL 2 mg/dL] (05/17/16 4:29 PM) Lipase Lvl [8-48 30 U/L U/L] (05/17/16 4:29 PM) Screen, Negative Urine NPT (05/17/16 4:52 PM) 1Result Comment: Multiply eGFR results by 1.21 for race. 2Result Comment: Naproxen, specifically the metabolite O-desmethylnaproxen, may cause spurious elevation in Total Bilirubin levels. Urinalysis Most recent to 1 oldest [Reference Range]: UA Color Yellow (05/17/16 4:29 PM) UA Appear Sl Cloudy (05/17/16 4:29 PM) UA pH [5.0-8.0] 5.0 (05/17/16 4:29 PM) UA Leuk Est Pos 2+ [Negative] *ABN* (05/17/16 4:29 PM) UA Nitrite Negative [Negative] (05/17/16 4:29 PM) UA Protein Negative [Negative] (05/17/16 4:29 PM) UA Glucose Negative [Negative] (05/17/16 4:29 PM) UA Ketones Negative [Negative] (05/17/16 4:29 PM) UA Urobilinogen Negative [<1.0] (05/17/16 4:29 PM) UA Bili [Negative] Negative (05/17/16 4:29 PM) UA Blood [Negative] Negative (05/17/16 4:29 PM) UA Spec Grav 1.025 [1.003-1.030] (05/17/16 4:29 PM) Type Catheter (05/17/16 4:29 PM) UA WBC [0-4] 10-20 *ABN* (05/17/16 4:29 PM) UA RBC [0-2] 0-2 (05/17/16 4:29 PM) Epithelial Cells 5-10 (05/17/16 4:29 PM) UA Bacteria Occasional *ABN* (05/17/16 4:29 PM) UA Mucous Present (05/17/16 4:29 PM) Immunizations Vaccine Date Refusal Reason pneumococcal 23-polyvalent vaccine 11/18/14 Procedures Procedure Date Related Diagnosis Body Site Esophagogastroduodenoscopy Foreign Body 01/06/16 Removal1 Procedure with Anesthesia2 01/06/16 Esophagogastroduodenoscopy Balloon Dilat3 02/14/15 Examination Under Anesthesia4 02/14/15 Adenoidectomy Bilateral tubal ligation Bronchoscope Cardiac catheterization, combined right and left heart Tonsillectomy Tympanostomy [place] tooth 1auto-populated from documented surgical case 2auto-populated from documented surgical case 3auto-populated from documented surgical case 4auto-populated from documented surgical case Social History Social History Type Response Smoking Status Never smoker Assessment and Plan No data available for this section
--- OUTSIDE RECORDS SUMMARY | 2017-01-20 22:17 | XMS REPORT | Referral Summary ---
Author Organization Unknown Address Unknown Phone Unavailable Care Team Providers Care Bus Trolley And Taxi Instructor Name Role Phone Pardeep Poole Primary Care Physician [phone] Encounter [facility] Date(s): 12/19/14 - 12/20/[address] [place], [place] [address] Discharge Diagnosis: Acid reflux Discharge Disposition: Home or Self Care Attending Physician: Mandeep Ureña MD Admitting Physician: Mandeep Ureña MD Vital Signs Most recent to 1 oldest [Reference Range]: Temperature Oral 37.0 degC [35.8-37.3 degC] (12/20/14 11:00 AM) Peripheral Pulse 82 bpm Rate [60-100 bpm] (12/20/14 11:00 AM) Heart Rate Monitored 70 bpm [60-100 bpm] (12/20/14 10:00 AM) Respiratory Rate 16 br/min [14-20 br/min] (12/20/14 11:00 AM) Blood Pressure 105/73 mmHg [90-140/60-90 mmHg] (12/20/14 11:00 AM) Most recent to 1 oldest [Reference Range]: SpO2 95 % (12/20/14 12:00 PM) Problem List Condition Effective Dates Status [...] 1 unknown unit, 1 Refill(s) , eRx: [facility] [address]92, INHALE 1 PUFF BY INHALATION ROUTE 2 TIMES EVERY DAY IN THE M... Special Instructions: INHALE 1 PUFF BY INHALATION ROUTE 2 TIMES EVERY DAY IN THE MORNING AND EVENING APPROXIMATELY 12 HOURS APART Start Date: 12/02/14 Status: Ordered Carafate 1 g/10 mL oral suspension 10 mL, Oral, QIDACHS, # 1,200 mL, 6 Refill(s), Pharmacy: [facility] [address]00, 10 mL Oral QIDACHS Start Date: 10/07/14 Status: Ordered Flonase 50 mcg/inh nasal spray 2 sprays, Nasal, Daily, # 1 Each, 5 Refill(s), Pharmacy: [facility] [id number] Start Date: 12/03/14 Status: Ordered FLUoxetine 20 [...] 0 Refill(s) Start Date: 11/18/14 Status: Ordered [place] 5 mg-325 mg oral tablet 1 tabs, Oral, q6hr, as needed for pain, 0 Refill(s) Start Date: 12/19/14 Status: Ordered Vimpat 100 mg oral tablet [...] 1 oldest [Reference Range]: WBC [4.8-10.8 K/uL] 6.6 K/uL (12/20/14 7:50 AM) RBC [4.00-5.20 M/uL] 4.21 M/uL (12/20/14 7:50 AM) Hgb [12.0-16.0 11.7 gm/dL gm/dL] *LOW* (12/20/14 7:50 AM) Hct [37.0-47.0 %] 36.9 % *LOW* (12/20/14 7:50 AM) MCV [82.0-99.0 fL] 87.6 fL (12/20/14 7:50 AM) MCH [27.0-32.0 pg] 27.8 pg (12/20/14 7:50 AM) MCHC [32.0-36.0 31.7 gm/dL gm/dL] *LOW* (12/20/14 7:50 AM) RDW [11.5-14.5 %] 17.4 % *HI* (12/20/14 7:50 AM) Platelet [150-400 238 K/uL K/uL] (12/20/14 7:50 AM) MPV [9.4-12.4 fL] 9.7 fL (12/20/14 7:50 AM) Immature 0.2 % Granulocytes (12/19/14 5:14 PM) [0.0-1.0 %] Neutrophils [51-75 77 % %] *HI* (12/19/14:14 PM) Lymphocytes [20-46 16 % %] *LOW* (12/19/14 5:14 PM) Monocytes [4-11 %] 6 % (12/19/14 5:14 PM) Eosinophils [0-4 %] 1 % (12/19/14 5:14 PM) Basophils [0-2 %] 0 % (12/19/14 5:14 PM) Neutro Absolute 8.98 THOUS [1.90-7.00 THOUS] *HI* (12/19/14 5:14 PM) Lymph Absolute 1.81 THOUS [0.80-3.30 THOUS] (12/19/14 5:14 PM) Gregory Absolute 0.71 THOUS [0.30-1.00 THOUS] (12/19/14 5:14 PM) Eos Absolute 0.09 THOUS [0.00-0.50 THOUS] (12/19/14 5:14 PM) Baso Absolute 0.01 THOUS [0.00-0.20 THOUS] (12/19/14 5:14 PM) Chemistry Most recent to 1 oldest [Reference Range]: Troponin [<0.06 <0.05 ng/mL ng/mL] (12/20/14 12:03 PM) Immunizations Vaccine Date Refusal Reason pneumococcal 23-polyvalent vaccine 11/18/14 Procedures Procedure Date Related Diagnosis Body Site Adenoidectomy Bilateral tubal ligation Bronchoscope Tonsillectomy Tympanostomy [place] tooth Social History Social History Type Response Smoking Status Former smoker Assessment and Plan No data available for this section
--- OUTSIDE RECORDS SUMMARY | 2017-01-20 22:17 | XMS REPORT | Referral Summary ---
Author Author [facility] Organization [facility] Address Unknown Phone Unavailable Care Team Providers Care Websphere Architect Name Role Phone Imelda Martin Primary Care Physician [phone] Encounter Date(s): 05/22/16 - 05/22/16 [facility] [address] [place] [address] Discharge Diagnosis: Acute chest wall pain Discharge Disposition: 01-Home or Self Care Attending Physician: Sarah Angulo MD Admitting Physician: Sarah Angulo MD Vital Signs Most recent to 1 oldest [Reference Range]: Temperature Oral 36.8 degC [35.8-37.3 degC] (05/22/16 4:13 PM) Peripheral Pulse 84 bpm Rate [60-100 bpm] (05/22/16 4:13 PM) Heart Rate Monitored 75 bpm [60-100 bpm] (05/22/16 5:54 PM) Respiratory Rate 23 br/min [14-20 br/min] *HI* (05/22/16 5:54 PM) Blood Pressure 104/66 mmHg [90-140/60-90 mmHg] (05/22/16 5:54 PM) Mean Arterial 87 mmHg Pressure, Cuff (05/22/16 5:54 PM) SpO2 96 % (05/22/16 5:54 PM) Problem List Condition Effective Dates Status [...] HOURS APART, # 1 unknown unit, eRx: [facility] [id number], INHALE 1 PUFF BY INHALATION ROUTE 2 TIMES EVERY DAY IN THE MORNING AND EV... Start Date: 02/25/15 Status: Ordered Carafate 1 g/10 mL oral suspension 10 mL, Oral, QIDACHS, # 280 mL, 0 Refill(s), Pharmacy: [facility], 10 mL Oral QIDACHS [...] Date: 05/17/16 Stop Date: 05/24/16 Status: Ordered Mobic 7.5 mg oral tablet 7.5 mg 1 tabs, Oral, Daily, # 14 tabs, 0 Refill(s) Start Date: 05/22/16 Stop Date: 06/05/16 Status: Ordered ProAir HFA 90 mcg/inh inhalation aerosol See Instructions, 2-4 puffs every 4-6 hrs prn., # 1 Each, 1 Refill(s), Pharmacy : [facility] [id number] Start Date: 06/11/15 Status: Ordered promethazine 25 [...] combined right and left heart Tonsillectomy Tympanostomy [place] tooth 1auto-populated from documented surgical case 2auto-populated from documented surgical case 3auto-populated from documented surgical case 4auto-populated from documented surgical case Social History Social History Type Response Smoking Status Never smoker Assessment and Plan No data available for this section
--- OUTSIDE RECORDS SUMMARY | 2017-01-20 22:17 | XMS REPORT | Referral Summary ---
Author Organization Unknown Address Unknown Phone Unavailable Care Team Providers Care Ems Driver Name Role Phone Pardeep Poole Primary Care Physician [phone] Encounter [facility] Date(s): 12/08/14 - 12/08/[address] [place] [address] Discharge Diagnosis: Pharyngeal FB - foreign body Discharge Disposition: Home or Self Care Attending Physician: Milton Magaña MD Admitting Physician: Milton Magaña MD Vital Signs Most recent to 1 oldest [Reference Range]: Peripheral Pulse 90 bpm Rate [60-100 bpm] (12/08/14 8:53 PM) Blood Pressure 123/86 mmHg [90-140/60-90 mmHg] (12/08/14 8:53 PM) Most recent to 1 oldest [Reference Range]: SpO2 100 % (12/08/14 10:00 PM) Problem List Condition Effective Dates Status [...] 1 unknown unit, 1 Refill(s) , eRx: [facility] [id number], INHALE 1 PUFF BY INHALATION ROUTE 2 TIMES EVERY DAY IN THE M... Special Instructions: INHALE 1 PUFF BY INHALATION ROUTE 2 TIMES EVERY DAY IN THE MORNING AND EVENING APPROXIMATELY 12 HOURS APART Start Date: 12/02/14 Status: Ordered Carafate 1 g/10 mL oral suspension 10 mL, Oral, QIDACHS, # 1,200 mL, 6 Refill(s), Pharmacy: [facility] 09266, 10 mL Oral QIDACHS Start Date: 10/07/14 Status: Ordered Flonase 50 mcg/inh nasal spray 2 sprays, Nasal, Daily, # 1 Each, 5 Refill(s), Pharmacy: [facility] [id number] Start Date: 12/03/14 Status: Ordered FLUoxetine 20 [...] # 1 Each, 1 Refill(s), Pharmacy : [facility] [id number] Special Instructions: 2-4 puffs every 4-6 hrs [...] Adenoidectomy Bilateral tubal ligation Bronchoscope Tonsillectomy Tympanostomy [place] tooth Social History Social History Type Response Smoking Status Former smoker Assessment and Plan No data available for this section
--- OUTSIDE RECORDS SUMMARY | 2017-01-20 22:17 | XMS REPORT | Referral Summary ---
Author Author [facility] Organization [facility] Address Unknown Phone Unavailable Care Team Providers Care Scrap Separator Name Role Phone Imelda Martin Primary Care Physician [phone] Encounter [facility] Date(s): 03/17/15 - 03/18/15 [facility] [address] [facility] [place] [address] CX Final: EDEMA Final: TOBACCO USE DISORDER Discharge Diagnosis: Pedal edema Discharge Disposition: 01-Home or Self Care Attending Physician: Maia Strong MD Admitting Physician: Maia Strong MD Vital Signs Most recent to 1 oldest [Reference Range]: Temperature Oral 36.8 degC [35.8-37.3 degC] (03/17/15 8:15 PM) Peripheral Pulse 70 bpm Rate [60-100 bpm] (03/18/15 4:49 AM) Respiratory Rate 20 br/min [14-20 br/min] (03/18/15 4:49 AM) Blood Pressure 101/61 mmHg [90-140/60-90 mmHg] (03/18/15 4:49 AM) SpO2 97 % (03/18/15 4:49 AM) Problem List Condition Effective Dates Status [...] pain, # 300 mL, 0 Refill(s), Pharmacy: [facility] [id number], 10 mL Oral q6hr,PRN:as needed for pain Start Date: 12/24/14 Status: Ordered Advair Diskus 250 mcg-50 mcg inhalation powder See Instructions, INHALE 1 PUFF BY INHALATION ROUTE 2 TIMES EVERY DAY IN THE MORNING AND EVENING APPROXIMATELY 12 HOURS APART, # 1 unknown unit, eRx: [facility] [id number], INHALE 1 PUFF BY INHALATION ROUTE 2 TIMES EVERY DAY IN THE MORNING AND EV... Start Date: 02/25/15 Status: Ordered albuterol 2.5 mg/3 mL (0.083%) inhalation solution 3 mL, Inhalation, q6hr (scheduled), # 60 Each, 1 Refill(s), Pharmacy: [facility] [id number], 3 mL Inhalation q6hr (scheduled) Start Date: 02/13/15 Status: Ordered Atrovent 42 mcg/inh nasal spray 2 sprays, Nasal, TID, # 2 Each, 5 Refill(s), Pharmacy: [facility] [id number] Start Date: 06/11/15 Stop Date: 06/11/16 Status: Ordered Carafate 1 g oral tablet 1 g 1 tabs, Oral, QID, Dissolve in water and drink, # 40 tabs, 0 Refill(s) Start Date: 08/31/15 Status: Ordered cetirizine 10 mg oral tablet 10 mg 1 tabs, Oral, Daily, # 30 tabs, 5 Refill(s), Pharmacy: [facility] [id number], 1 tabs Oral Daily Start Date: 09/01/15 Status: Ordered levETIRAcetam 500 mg oral tablet See Instructions, TAKE 3 TABLETS BY MOUTH TWICE DAILY, # 180 tabs, 12 Refill(s) , eRx: [facility] [id number], TAKE 3 TABLETS BY MOUTH TWICE DAILY Start Date: 02/27/15 Status: Ordered Linzess 290 mcg oral capsule 1 caps, Oral, Daily, # 30 caps, 6 Refill(s), Pharmacy: [facility] 91097, 1 caps Oral Daily Start Date: 02/24/15 Status: Ordered loratadine 10 mg oral tablet 10 mg, Oral, Daily, # 30 tabs, 5 Refill(s), Pharmacy: [facility] [address]235 , 10 mg Oral Daily Start Date: [...] # 1 Each, 1 Refill(s), Pharmacy : [facility] [address] Start Date: 06/11/15 Status: Ordered traZODone Oral, [...] combined right and left heart Tonsillectomy Tympanostomy [place] tooth 1auto-populated from documented surgical case 2auto-populated from documented surgical case Social History Social History Type Response Smoking Status Former smoker; Type: Cigarettes; Tobacco use per day: 1 Pack1 1quit 05/2015 Assessment and Plan No data available for this section
--- OUTSIDE RECORDS SUMMARY | 2017-01-20 22:17 | XMS REPORT | Referral Summary ---
Author Author [facility] Organization [facility] Address Unknown Phone Unavailable Care Team Providers Care Aircraft Painter Apprentice Name Role Phone [facility] Primary Care Physician Unavailable Encounter [facility] [id number] Date(s): 02/01/16 - 02/01/16 [facility] [address] [place] [address] [phone] Discharge Diagnosis: Chronic back pain Discharge Disposition: 01-Home or Self Care Attending Physician: Moses Kay JR, MD Admitting Physician: Moses Kay JR, MD Referring Physician: Self Referred, X Vital Signs Most recent to 1 oldest [Reference Range]: Temperature Oral 36.7 degC [35.8-37.3 degC] (02/01/16 7:46 PM) Peripheral Pulse 74 bpm Rate [60-100 bpm] (02/01/16 9:06 PM) Respiratory Rate 20 br/min [14-20 br/min] (02/01/16 9:06 PM) Blood Pressure 108/84 mmHg [90-140/60-90 mmHg] (02/01/16 9:06 PM) SpO2 97 % (02/01/16 7:46 PM) Problem List Condition Effective Dates Status [...] pain, # 300 mL, 0 Refill(s), Pharmacy: [facility] 20374, 10 mL Oral q6hr,PRN:as needed for pain [...] HOURS APART, # 1 unknown unit, eRx: [facility] [id number], INHALE 1 PUFF BY INHALATION ROUTE 2 [...] Daily, # 30 tabs, 5 Refill(s), Pharmacy: [facility] 54212, 1 tabs Oral Daily Start Date: 09/01/15 [...] Daily, # 1 Each, 5 Refill(s), Pharmacy: [facility] [address] Start Date: 12/12/15 Status: Ordered ibuprofen 800 mg oral tablet 800 mg 1 tabs, Oral, TID, Pain, # 15 tabs, 0 Refill(s) Start Date: 12/07/15 Status: Ordered loratadine 0 Refill(s) Start Date: 01/23/16 Status: Ordered loratadine 10 mg oral tablet 10 mg, Oral, Daily, # 30 tabs, 5 Refill(s), Pharmacy: [facility] [address]49[address] , 10 mg Oral Daily Start Date: 01/14/15 Status: Ordered meloxicam 15 mg oral tablet 15 mg 1 tabs, Oral, Daily, # 30 tabs, 0 Refill(s) Start Date: 12/12/15 Status: Ordered Mobic 7.5 mg oral tablet 7.5 mg 1 tabs, Oral, Daily, # 7 tabs, 0 Refill(s), Pharmacy: [facility], 1 tabs Oral [...] # 1 Each, 1 Refill(s), Pharmacy : [facility] [address] Start Date: 06/11/15 Status: Ordered Robitussin DM To Go 20 mg-200 mg/10 mL oral liquid 10 mL, Oral, q4hr, as needed for cough, # 100 mL, 0 Refill(s), [facility] [address] Start Date: 12/12/15 Status: Ordered Singulair qPM, 0 Refill(s) Start Date: 01/23/16 Status: Ordered Vitamin D3 1,000 Intl_Units, Oral, Daily, 0 Refill(s) Start Date: 10/26/14 Status: Ordered Results Urinalysis Most recent to 1 oldest [Reference Range]: UA Color Yellow (02/01/16 8:00 PM) UA Appear Clear (02/01/16 8:00 PM) UA pH [5.0-8.0] 7.0 (02/01/16 8:00 PM) UA Leuk Est Trace [Negative] *ABN* (02/01/16 8:00 PM) UA Nitrite Negative [Negative] (02/01/16 8:00 PM) UA Protein Negative [Negative] (02/01/16 8:00 PM) UA Glucose Negative [Negative] (02/01/16 8:00 PM) UA Ketones Negative [Negative] (02/01/16 8:00 PM) UA Urobilinogen Negative [<1.0] (02/01/16 8:00 PM) UA Bili [Negative] Negative (02/01/16 8:00 PM) UA Blood [Negative] Trace *ABN* (02/01/16 8:00 PM) UA Spec Grav 1.018 [1.003-1.030] (02/01/16 8:00 PM) Type Clean Catch (02/01/16 8:00 PM) UA WBC [0-4] 0-2 (02/01/16 8:00 PM) UA RBC [0-2] 0-2 (02/01/16 8:00 PM) Epithelial Cells 2-5 (02/01/16 8:00 PM) UA Mucous Present (02/01/16 8:00 PM) Immunizations Vaccine Date Refusal Reason pneumococcal 23-polyvalent vaccine 11/18/14 Procedures Procedure Date Related Diagnosis Body Site Esophagogastroduodenoscopy Foreign Body 01/06/16 Removal1 Procedure with Anesthesia2 01/06/16 Esophagogastroduodenoscopy Balloon Dilat3 02/14/15 Examination Under Anesthesia4 02/14/15 Adenoidectomy Bilateral tubal ligation Bronchoscope Cardiac catheterization, combined right and left heart Tonsillectomy Tympanostomy [place] tooth 1auto-populated from documented surgical case 2auto-populated [...]
--- OUTSIDE RECORDS SUMMARY | 2017-01-20 22:17 | XMS REPORT | Referral Summary ---
Author Author [facility] Organization [facility] Address Unknown Phone Unavailable Care Team Providers Care Assistant Professor Of Mathematics Name Role Phone [facility] Primary Care Physician Unavailable Encounter [facility] [id number] Date(s): 02/15/16 - 02/15/16 [facility] [address] [place], [place] [address] Discharge Diagnosis: Chronic abdominal pain Discharge Diagnosis: Nausea Discharge Disposition: 01-Home or Self Care Attending Physician: Maia Strong MD Admitting Physician: Maia Strong MD Vital Signs Most recent to 1 oldest [Reference Range]: Temperature Oral 36.7 degC [35.8-37.3 degC] (02/15/16 10:04 PM) Peripheral Pulse 79 bpm Rate [60-100 bpm] (02/15/16 10:04 PM) Respiratory Rate 16 br/min [14-20 br/min] (02/15/16 10:04 PM) Blood Pressure 129/77 mmHg [90-140/60-90 mmHg] (02/15/16 10:04 PM) SpO2 99 % (02/15/16 10:04 PM) Problem List Condition Effective Dates Status [...] pain, # 300 mL, 0 Refill(s), Pharmacy: [facility] [id number], 10 mL Oral q6hr,PRN:as needed for pain [...] HOURS APART, # 1 unknown unit, eRx: [facility] [id number], INHALE 1 PUFF BY INHALATION ROUTE 2 [...] 0 Refill(s) Start Date: 08/31/15 Status: Ordered Carafate 1 g/10 mL oral suspension 10 mL, Oral, QIDACHS, # 280 mL, 0 Refill(s), Pharmacy: [facility], 10 mL Oral QIDACHS Start Date: 02/15/16 Status: Ordered cetirizine 10 mg oral tablet 10 mg 1 tabs, Oral, Daily, # 30 tabs, 5 Refill(s), Pharmacy: [facility] [address]4213, 1 tabs Oral Daily Start Date: 09/01/15 [...] Daily, # 1 Each, 5 Refill(s), [facility] [address] Start Date: 12/12/15 Status: Ordered ibuprofen 800 mg oral tablet 800 mg 1 tabs, Oral, TID, Pain, # 15 tabs, 0 Refill(s) Start Date: 12/07/15 Status: Ordered loratadine 0 Refill(s) Start Date: 01/23/16 Status: Ordered loratadine 10 mg oral tablet 10 mg, Oral, Daily, # 30 tabs, 5 Refill(s), [facility] [address] , 10 mg Oral Daily Start Date: [...] Daily, # 7 tabs, 0 Refill(s), Pharmacy: [facility], 1 tabs Oral Daily,x7 days Start Date: 01/20/16 Stop Date: 01/27/16 Status: Ordered Naprosyn 500 mg oral tablet 500 mg 1 tabs, Oral, BID, # 10 tabs, 0 Refill(s) Start Date: 01/17/16 Stop Date: 01/22/16 Status: Ordered olopatadine 0.1% ophthalmic solution See Instructions, 1 drop to affected eye daily prn, # 5 mL, 5 Refill(s), Pharmacy: [facility] Start Date: 02/02/16 Status: Ordered ondansetron 4 mg oral disintegrating strip 1 tabs, Oral, q8hr, as needed for nausea/vomiting, X 3 days, # 9 tabs, 0 Refill( s), Pharmacy: [facility], 1 tabs Oral q8hr,x3 days,PRN:as needed for nausea/vomiting Start Date: 02/15/16 Stop Date: 02/18/16 Status: Ordered ondansetron 4 mg oral tablet [...] 1 Refill(s), Pharmacy : [facility] [address] Start Date: 06/11/15 Status: Ordered Robitussin DM To Go 20 mg-200 mg/10 mL oral liquid 10 mL, Oral, q4hr, as needed for cough, # 100 mL, 0 Refill(s), Pharmacy: [facility] [address] Start Date: 12/12/15 Status: Ordered Singulair qPM, 0 Refill(s) Start Date: 01/23/16 Status: Ordered Vitamin D3 1,000 Intl_Units, Oral, Daily, 0 Refill(s) Start Date: 10/26/14 Status: Ordered Zofran ODT 4 mg oral tablet, disintegrating 4 mg 1 tabs, Oral, q4hr, Nausea or Vomiting | as needed for nausea/vomiting, # 10 tabs, 0 Refill(s) Start Date: 4/28/16 Status: Ordered Results No data available for this section Immunizations Vaccine Date Refusal Reason pneumococcal 23-polyvalent vaccine 11/18/14 Procedures Procedure Date Related Diagnosis Body Site Esophagogastroduodenoscopy Foreign Body 01/06/16 Removal1 Procedure with Anesthesia2 01/06/16 Esophagogastroduodenoscopy Balloon Dilat3 02/14/15 Examination Under Anesthesia4 02/14/15 Adenoidectomy Bilateral tubal ligation Bronchoscope Cardiac catheterization, combined right and left heart Tonsillectomy Tympanostomy [place] tooth 1auto-populated from documented surgical case 2auto-populated [...]
--- OUTSIDE RECORDS SUMMARY | 2017-01-20 22:17 | XMS REPORT | Referral Summary ---
Author Author [facility] Organization [facility] Address Unknown Phone Unavailable Care Team Providers Care Head Golf Professional Name Role Phone [facility] Primary Care Physician Unavailable Encounter [facility] [id number] Date(s): 07/16/15 - 07/16/15 [facility] [address] [place], [place] [address] Discharge Diagnosis: Abdominal pain Final: DIAPHRAGMATIC HERNIA WITHOUT MENTION OF OBSTRUCTION OR GANGRENE Final: URINARY TRACT INFECTION, SITE NOT SPECIFIED Final: ANEMIA, UNSPECIFIED Final: ABDOMINAL PAIN, EPIGASTRIC Discharge Diagnosis: Acute urinary tract infection Discharge Diagnosis: Anemia Discharge Diagnosis: Hernia, hiatal Discharge Disposition: 01-Home [...] pain, # 300 mL, 0 Refill(s), Pharmacy: [facility] 35790, 10 mL Oral q6hr,PRN:as needed for pain [...] HOURS APART, # 1 unknown unit, eRx: [facility] [id number], INHALE 1 PUFF BY INHALATION ROUTE 2 [...] Daily, # 30 tabs, 5 Refill(s), Pharmacy: [facility] 71826, 1 tabs Oral Daily Start Date: 09/01/15 Status: Ordered Claritin mg, 0 Refill(s) Start Date: 01/23/16 Status: Ordered codeine-guaiFENesin 10 mg-300 mg/5 mL oral liquid 5 mL, Oral, q6hr, as needed for cough, # 120 mL, 0 Refill(s) Start Date: 12/21/15 Status: Ordered Flonase 50 mcg/inh nasal spray 2 sprays, Nasal, Daily, # 1 Each, 5 Refill(s), [facility] [address] Start Date: 12/12/15 Status: Ordered ibuprofen 800 mg oral tablet 800 mg 1 tabs, Oral, TID, Pain, # 15 tabs, 0 Refill(s) Start Date: 12/07/15 Status: Ordered loratadine 0 Refill(s) Start Date: 01/23/16 Status: Ordered loratadine 10 mg oral tablet 10 mg, Oral, Daily, # 30 tabs, 5 Refill(s), [facility] [address] , 10 mg Oral Daily Start Date: 01/14/15 Status: Ordered meloxicam 15 mg oral tablet 15 mg 1 tabs, Oral, Daily, # 30 tabs, 0 Refill(s) Start Date: 12/12/15 Status: Ordered Mobic 7.5 mg oral tablet 7.5 mg 1 tabs, Oral, Daily, # 7 tabs, 0 Refill(s), Pharmacy: [facility], 1 tabs Oral Daily,x7 days [...] # 1 Each, 1 Refill(s), Pharmacy : [facility] [address] Start Date: 06/11/15 Status: Ordered Robitussin DM To Go 20 mg-200 mg/10 mL oral liquid 10 mL, Oral, q4hr, as needed for cough, # 100 mL, 0 Refill(s), Pharmacy: [facility] [address]656 Start Date: 12/12/15 Status: Ordered Singulair qPM, 0 Refill(s) Start Date: 01/23/16 Status: Ordered traMADol 50 mg oral tablet 50 mg 1 tabs, Oral, q6hr, Pain Moderate (4-6), # 12 tabs, 0 Refill(s) Start Date: 01/23/16 Stop Date: 01/26/16 Status: Ordered Vitamin D3 1,000 Intl_Units, Oral, [...] 10:27 AM) Immature 0.2 % Granulocytes (07/16/15 10: AM) [0.0-1.0 %] Neutrophils [51-75 73 % %] (07/16/15 10:27 AM) Lymphocytes [20-46 20 % %] (07/16/15 10: AM) Monocytes [4-11 %] 7 % (07/16/15 10:27 AM) Eosinophils [0-4 %] 1 % (07/16/15 10:27 AM) Basophils [0-2 %] 0 % (07/16/15 10:27 AM) Neutro Absolute 6.53 10*3 [1.90-7.00 10*3] (07/16/15 10:27 AM) Lymph Absolute 1.76 10*3 [0.80-3.30 10*3] (07/16/15 10:27 AM) Upton Absolute 0.59 10*3 [0.30-1.00 10*3] (07/16/15 10:27 AM) Eos Absolute 0.09 10*3 [0.00-0.50 10*3] (07/16/15 10:27 AM) Baso Absolute 0.02 10*3 [0.00-0.20 10*3] (07/16/15 10:27 AM) Hypochrom Occasional *ABN* (07/16/15 10:27 AM) Polychrom Occasional *ABN* (07/16/15 10:27 AM) Microcyte Present *ABN* (07/16/15 10:27 AM) Nucleated RBC 0.0 /100 WBC Automated [0 /100 (07/16/15 10:27 AM) WBC] Differential Scanned Slide (07/16/15: AM) Chemistry Most recent to 1 oldest [Reference Range]: Sodium Lvl [136-144 136 mEq/L mEq/L] (07/16/15: AM) Potassium Lvl 3.7 mEq/L [3.6-5.1 mEq/L] (07/16/15 10: AM) Chloride [99-109 103 mEq/L mEq/L] (07/16/15: AM) CO2 [22-32 mEq/L] 26 mEq/L (07/16/15: AM) AGAP [3-20] 7 (07/16/15: AM) BUN [4-20 mg/dL] 5 mg/dL (07/16/15: AM) Glucose Lvl [70-100 86 mg/dL mg/dL] (07/16/15: AM) Creatinine Lvl 0.63 mg/dL [0.44-1.03 mg/dL] (07/16/15: AM) eGFR [>60] >60 1 (07/16/15: AM) Calcium Lvl 8.7 mg/dL [8.6-10.0 mg/dL] (07/16/15: AM) Albumin Lvl [3.5-4.8 3.0 gm/dL gm/dL] *LOW* (07/16/15: AM) Total Protein 6.2 gm/dL [6.1-7.9 gm/dL] (07/16/15: AM) Globulin [1.9-4.3 3.2 gm/dL gm/dL] (07/16/15: AM) ALT [14-54 U/L] 11 U/L *LOW* (07/16/15: AM) AST [15-41 U/L] 17 U/L (07/16/15:27 AM) Alk Phos [26-104 71 U/L U/L] (07/16/15 10:27 AM) Bili Total [0.2-1.2 0.7 mg/dL 2 mg/dL] (07/16/15 10: AM) Lipase Lvl [8-48 17 U/L U/L] [...]
--- OUTSIDE RECORDS SUMMARY | 2017-01-20 22:17 | XMS REPORT | Referral Summary ---
Author Author [facility] Organization [facility] Address Unknown Phone Unavailable Care Team Providers Care Psychology Assistant Name Role Phone [facility] Primary Care Physician Unavailable Encounter [facility] [id number] Date(s): 12/25/15 - 12/25/15 [facility] [address] [place] [address]- Discharge Diagnosis: Eustachian tube dysfunction Discharge Disposition: 01-Home or Self Care Attending Physician: Shannon Jordan Referring Physician: Rafael Katz [...] pain, # 300 mL, 0 Refill(s), Pharmacy: [facility] 00482, 10 mL Oral q6hr,PRN:as needed for pain Start Date: 12/24/14 Status: Ordered Advair Diskus 250 mcg-50 mcg inhalation powder See Instructions, INHALE 1 PUFF BY INHALATION ROUTE 2 TIMES EVERY DAY IN THE MORNING AND EVENING APPROXIMATELY 12 HOURS APART, # 1 unknown unit, eRx: [facility] [id number], INHALE 1 PUFF BY INHALATION ROUTE 2 [...] Daily, # 30 tabs, 5 Refill(s), Pharmacy: [facility] 71373, 1 tabs Oral Daily Start Date: 09/01/15 Status: Ordered codeine-guaiFENesin 10 mg-300 mg/5 mL oral liquid 5 mL, Oral, q6hr, as needed for cough, # 120 mL, 0 Refill(s) Start Date: 12/21/15 Status: Ordered Flonase 50 mcg/inh nasal spray 2 sprays, Nasal, Daily, # 1 Each, 5 Refill(s), Pharmacy: [facility] [address] Start Date: 12/12/15 Status: Ordered ibuprofen 800 mg oral tablet 800 mg 1 tabs, Oral, TID, Pain, # 15 tabs, 0 Refill(s) Start Date: 12/07/15 Status: Ordered loratadine 10 mg oral tablet 10 mg, Oral, Daily, # 30 tabs, 5 Refill(s), Pharmacy: [facility] 24198 , 10 mg Oral Daily Start Date: [...] # 1 Each, 1 Refill(s), Pharmacy : [facility] [address] Start Date: 06/11/15 Status: Ordered Robitussin DM To Go 20 mg-200 mg/10 mL oral liquid 10 mL, Oral, q4hr, as needed for cough, # 100 mL, 0 Refill(s), Pharmacy: [facility] [address]249 Start Date: 12/12/15 Status: Ordered traZODone Oral, [...] combined right and left heart Tonsillectomy Tympanostomy [place] tooth 1auto-populated from documented surgical case 2auto-populated from documented surgical case Social History Social History Type Response Smoking Status Former smoker; Type: Cigarettes; Tobacco use per day: 1 Pack1 , 2 1pt quit smoking 1 month ago 2quit 05/2015 Assessment and Plan No data available for this section"
--- OUTSIDE RECORDS SUMMARY | 2017-01-20 22:17 | XMS REPORT | Referral Summary ---
Author Author [facility] Organization [facility] Address Unknown Phone Unavailable Care Team Providers Care Cafeteria Associate Name Role Phone Imelda Martin Primary Care Physician [phone] Encounter VC Date(s): 06/05/15 - 06/05/[address] [facility] [address] [facility] [address] [place] [id number] Discharge Diagnosis: Shuddering spell Discharge [...] pain, # 300 mL, 0 Refill(s), Pharmacy: [id number], 10 mL Oral q6hr,PRN:as needed for pain Start Date: 12/24/14 Status: Ordered Advair Diskus 250 mcg-50 mcg inhalation powder See Instructions, INHALE 1 PUFF BY INHALATION ROUTE 2 TIMES EVERY DAY IN THE MORNING AND EVENING APPROXIMATELY 12 HOURS APART, # 1 unknown unit, eRx: [facility] [id number], INHALE 1 PUFF BY INHALATION ROUTE 2 TIMES EVERY DAY IN THE MORNING AND EV... Start Date: 02/25/15 Status: Ordered albuterol 2.5 mg/3 mL (0.083%) inhalation solution 3 mL, Inhalation, q6hr (scheduled), # 60 Each, 1 Refill(s), Pharmacy: [facility] [id number], 3 mL Inhalation q6hr (scheduled) Start Date: 02/13/15 Status: Ordered Atrovent 42 mcg/inh nasal spray 2 sprays, Nasal, TID, # 2 Each, 5 Refill(s), Pharmacy: [facility] [id number] Start Date: 06/11/15 Stop Date: 06/11/16 Status: Ordered Chloraseptic Bowen 1.4% topical spray 5 sprays, Oral, q2hr, # 10 mL, 0 Refill(s) Start Date: 08/11/15 Stop Date: 08/11/16 Status: Ordered levETIRAcetam 500 mg oral tablet See Instructions, TAKE 3 TABLETS BY MOUTH TWICE DAILY, # 180 tabs, 12 Refill(s) , eRx: [facility] [id number], TAKE 3 TABLETS BY MOUTH TWICE DAILY Start Date: 02/27/15 Status: Ordered Linzess 290 mcg oral capsule 1 caps, Oral, Daily, # 30 caps, 6 Refill(s), Pharmacy: [facility] 28519, 1 caps Oral Daily Start Date: 02/24/15 Status: Ordered loratadine 10 mg oral tablet 10 mg, Oral, Daily, # 30 tabs, 5 Refill(s), Pharmacy: [facility] [address]27 , 10 mg Oral Daily Start Date: [...] # 1 Each, 1 Refill(s), Pharmacy : [facility] [id number] Start Date: 06/11/15 Status: Ordered traZODone Oral, [...] combined right and left heart Tonsillectomy Tympanostomy [place] tooth 1auto-populated from documented surgical case 2auto-populated from documented surgical case Social History Social History Type Response Smoking Status Former smoker; Type: Cigarettes; Tobacco use per day: 1 Pack1 1quit 05/2015 Assessment and Plan No data available for this section
--- OUTSIDE RECORDS SUMMARY | 2017-01-20 22:18 | XMS REPORT | Referral Summary ---
Author Author [facility] Organization [facility] Address Unknown Phone Unavailable Care Team Providers Care Hedge Fund Principal Name Role Phone Indio [facility] Primary Care Physician Unavailable Encounter [facility] [id number] Date(s): 08/15/15 - 08/15/15 [facility] [address] [place], [place] [address] Discharge Diagnosis: Lumbar paraspinal muscle spasm Final: Muscle spasm of back Final: Unspecified asthma, uncomplicated Final: Personal history of nicotine dependence Discharge Disposition: 01-Home or Self Care Attending [...] HOURS APART, # 1 unknown unit, eRx: [facility] [id number], INHALE 1 PUFF BY INHALATION ROUTE 2 TIMES EVERY DAY IN THE MORNING AND EV... Start Date: 02/25/15 Status: Ordered Carafate 1 g/10 mL oral suspension 10 mL, Oral, QIDACHS, # 280 mL, 0 Refill(s), Pharmacy: [facility], 10 mL Oral QIDACHS Start Date: 02/15/16 Status: Ordered cetirizine 10 mg oral tablet 10 mg 1 tabs, Oral, Daily, # 30 tabs, 5 Refill(s), Pharmacy: [facility] [id number], 1 tabs Oral Daily Start Date: 09/01/15 [...] prn, # 5 mL, 5 Refill(s), Pharmacy: [facility] Start Date: 02/02/16 Status: Ordered Pepcid 20 mg oral tablet 20 mg 1 tabs, Oral, BID, # 60 tabs, 0 Refill(s) Start Date: 09/14/15 Status: Ordered ProAir HFA 90 mcg/inh inhalation aerosol See Instructions, 2-4 puffs every 4-6 hrs prn., # 1 Each, 1 Refill(s), Pharmacy : [facility] [id number] Start Date: 06/11/15 Status: Ordered Singulair qPM, [...] combined right and left heart Tonsillectomy Tympanostomy [place] tooth 1auto-populated from documented surgical case 2auto-populated [...]
--- OUTSIDE RECORDS SUMMARY | 2017-01-20 22:18 | XMS REPORT | Referral Summary ---
Author Organization Unknown Address Unknown Phone Unavailable Care Team Providers Care Juice Tester Name Role Phone Pardeep Poole Primary Care Physician [phone] Encounter VC Date(s): 11/18/14 - 11/21/14 [facility] [address] [place] [address] Discharge Disposition: Home or Self Care Attending Physician: Niranjan Thomas MD Admitting Physician: Niranjan Thomas MD Vital Signs Most recent to 1 oldest [Reference Range]: Temperature Axillary 36.6 degC [35.2-36.7 degC] (11/20/14 8:11 PM) Temperature Oral 36.6 degC [35.8-37.3 degC] (11/21/14 3:00 PM) Peripheral Pulse 74 bpm Rate [60-100 bpm] (11/18/14 10:24 AM) Heart Rate Monitored 88 bpm [60-100 bpm] (11/21/14 4:03 PM) Respiratory Rate 20 br/min [14-20 br/min] (11/21/14 4:03 PM) Blood Pressure 114/94 mmHg [90-140/60-90 mmHg] (11/21/14 3:00 PM) Most recent to 1 oldest [Reference Range]: SpO2 95 % (11/21/14 3:00 PM) Problem List Condition Effective Dates Status [...] QIDACHS, # 1,200 mL, 6 Refill(s), Pharmacy: [email or web address] [id number], 10 mL Oral QIDACHS Start Date: 10/07/14 [...] # 1 Each, 1 Refill(s), Pharmacy : [email or web address] [id number] Special Instructions: 2-4 puffs every 4-6 hrs [...] 1 oldest [Reference Range]: WBC [4.8-10.8 K/uL] 7.0 K/uL (11/18/14 3:50 PM) RBC [4.00-5.20 M/uL] 4.50 M/uL (11/18/14 3:50 PM) Hgb [12.0-16.0 11.9 gm/dL gm/dL] *LOW* (11/18/14 3:50 PM) Hct [37.0-47.0 %] 38.7 % (11/18/14 3:50 PM) MCV [82.0-99.0 fL] 86.0 fL (11/18/14 3:50 PM) MCH [27.0-32.0 pg] 26.4 pg *LOW* (11/18/14 3:50 PM) MCHC [32.0-36.0 30.7 gm/dL gm/dL] *LOW* (11/18/14 3:50 PM) RDW [11.5-14.5 %] 19.5 % *HI* (11/18/14 3:50 PM) Platelet [150-400 207 K/uL K/uL] (11/18/14 3:50 PM) MPV [9.4-12.4 fL] 10.0 fL (11/18/14 3:50 PM) Immature 0.1 % Granulocytes (11/18/14 3:50 PM) [0.0-1.0 %] Neutrophils [51-75 69 % %] (11/18/14 3:50 PM) Lymphocytes [20-46 25 % %] (11/18/14 3:50 PM) Monocytes [4-11 %] 5 % (11/18/14 3:50 PM) Eosinophils [0-4 %] 2 % (11/18/14 3:50 PM) Basophils [0-2 %] 0 % (11/18/14 3:50 PM) Neutro Absolute 4.77 THOUS [1.90-7.00 THOUS] (11/18/14 3:50 PM) Lymph Absolute 1.71 THOUS [0.80-3.30 THOUS] (11/18/14 3:50 PM) Dickens Absolute 0.32 THOUS [0.30-1.00 THOUS] (11/18/14 3:50 PM) Eos Absolute 0.13 THOUS [0.00-0.50 THOUS] (11/18/14 3:50 PM) Baso Absolute 0.03 THOUS [0.00-0.20 THOUS] (11/18/14 3:50 PM) Nucleated RBC 0.0 /100 WBC Automated [0 /100 (11/18/14 3:50 PM) WBC] Chemistry Most recent to 1 oldest [Reference Range]: Sodium Lvl [136-144 135 mEq/L mEq/L] *LOW* (11/18/14 3:50 PM) Potassium Lvl 3.3 mEq/L [3.6-5.1 mEq/L] *LOW* (11/18/14 3:50 PM) Chloride [99-109 106 mEq/L mEq/L] (11/18/14 3:50 PM) CO2 [22-32 mEq/L] 23 mEq/L (11/18/14 3:50 PM) AGAP [3-20] 6 (11/18/14 3:50 PM) BUN [4-20 mg/dL] 9 mg/dL (11/18/14 3:50 PM) Glucose Lvl [70-100 132 mg/dL mg/dL] *HI* (11/18/14 3:50 PM) Creatinine Lvl 0.53 mg/dL [0.44-1.03 mg/dL] (11/18/14 3:50 PM) eGFR [>60] >60 2 (11/18/14 3:50 PM) Calcium Lvl 9.0 mg/dL [8.6-10.0 mg/dL] (11/18/14 3:50 PM) Albumin Lvl [3.5-4.8 3.5 gm/dL gm/dL] (11/18/14 3:50 PM) Total Protein 6.7 gm/dL [6.1-7.9 gm/dL] (11/18/14 3:50 PM) Globulin [1.9-4.3 3.2 gm/dL gm/dL] (11/18/14 3:50 PM) ALT [14-54 unit/L] 15 unit/L (11/18/14 3:50 PM) AST [15-41 unit/L] 14 unit/L *LOW* (11/18/14 3:50 PM) Alk Phos [26-104 71 unit/L unit/L] (11/18/14 3:50 PM) Bili Total [0.2-1.2 0.7 mg/dL 1 mg/dL] (11/18/14 3:50 PM) U Beta hCG Ql Negative [Negative] (11/18/14 6:30 PM) 1Result Comment: Naproxen, specifically the metabolite O-desmethylnaproxen, may cause spurious elevation in Total Bilirubin levels. 2Result Comment: Multiply eGFR results by 1.21 for race. Therapeutic Drug Monitoring Most recent to 1 oldest [Reference Range]: Levetiracetam <2.0 mcg/mL 3 Lvl-Ramirez *LOW* (11/18/14 3:50 PM) 3Result Comment: Reference Range: 12.0 - 46.0 Test Performed by: [facility] [place] [address] Licensed Bondsman: Tyron Parry M.D. Toxicology Most recent to 1 oldest [Reference Range]: U Amphetamine Scrn Negative (11/18/14 6:30 PM) U Cocaine Scrn Negative (11/18/14 6:30 PM) U Cannab Scrn Negative (11/18/14 6:30 PM) U Opiate Scrn Negative (11/18/14 6:30 PM) U PCP Scrn Negative (11/18/14 6:30 PM) U Benzodiazepine Negative Scrn (11/18/14 6:30 PM) U Barbiturate Scrn Negative (11/18/14 6:30 PM) Methadone Lvl Negative (11/18/14 6:30 PM) Tricyclics Not Detected 4 (11/18/14 6:30 PM) 4Result Comment: Cut-off concentrations: Amphetamines: 1000 ng/mL Cocaine: [...] for non-medical purposes(e.g. employment or legal testing) Immunizations Vaccine Date Refusal Reason pneumococcal 23-polyvalent vaccine 11/18/14 Procedures Procedure Date Related Diagnosis Body Site Adenoidectomy Bilateral tubal ligation Bronchoscope Tonsillectomy Tympanostomy [place] tooth Social History Social History Type Response Smoking Status Current every day smoker; Type: Cigarettes; Tobacco use per day: 1-2 cigarettes a day Assessment and Plan No data available for this section
--- OUTSIDE RECORDS SUMMARY | 2017-01-20 22:18 | XMS REPORT | Referral Summary ---
Author Author Via Organization Via Address Unknown Phone Unavailable Care Team Providers Care Mma Fighter Name Role Phone Imelda Martin Primary Care Physician [phone] Encounter [facility] [id number] Date(s): 04/27/16 - 04/27/16 [facility] [address] [place], [place] [address] Discharge Diagnosis: Abdominal pain Discharge Diagnosis: Nausea Discharge Diagnosis: Infection of urinary tract Discharge Disposition: 01-Home or Self Care Attending Physician: Presley Frias MD Admitting Physician: Presley Frias MD Vital Signs Most recent to 1 oldest [Reference Range]: Temperature Oral 37.3 degC [35.8-37.3 degC] (04/27/16 8:08 PM) Peripheral Pulse 77 bpm Rate [60-100 bpm] (04/27/16 10:17 PM) Respiratory Rate 16 br/min [14-20 br/min] (04/27/16 10:17 PM) Blood Pressure 100/75 mmHg [90-140/60-90 mmHg] (04/27/16 10:17 PM) SpO2 95 % (04/27/16 10:17 PM) Problem List Condition Effective Dates Status [...] HOURS APART, # 1 unknown unit, eRx: [facility] [id number], INHALE 1 PUFF BY INHALATION ROUTE 2 TIMES EVERY DAY IN THE MORNING AND EV... Start Date: 02/25/15 Status: Ordered Carafate 1 g/10 mL oral suspension 10 mL, Oral, QIDACHS, # 280 mL, 0 Refill(s), Pharmacy: [facility], 10 mL Oral [...] # 1 Each, 1 Refill(s), Pharmacy : [id number] Start Date: 06/11/15 Status: Ordered promethazine 25 [...] 0 Refill(s) Start Date: 03/19/16 Status: Ordered Zofran ODT 4 mg oral tablet, disintegrating 4 mg 1 tabs, Oral, TID, X 3 days, # 9 tabs, 0 Refill(s), Indication: caron lugo md Start Date: 04/27/16 Stop Date: 04/30/16 Status: Ordered Results Chemistry Most recent to 1 oldest [Reference Range]: Sodium Venous 142 mEq/L [136-144 mEq/L] (04/27/16 9:55 PM) Potassium Venous 3.6 mEq/L 1 [3.6-5.1 mEq/L] (04/27/16 9:55 PM) Calcium Ionized 1.23 mmol/L Venous [1.19-1.41 (04/27/16 9:55 PM) mmol/L] Total CO2 Venous 20 mEq/L [25-29 mEq/L] *LOW* (04/27/16 9:55 PM) HGB Venous NPT 11.2 gm/dL [12.0-16.0 gm/dL] *LOW* (04/27/16 9:55 PM) HCT Venous 33.0 % [37.0-47.0 %] *LOW* (04/27/16 9:55 PM) Glucose Venous 86 mg/dL [70-100 mg/dL] (04/27/16 9:55 PM) BUN Venous [4-20] 7 (04/27/16 9:55 PM) Creatinine Venous 0.6 mg/dL [0.4-1.0 mg/dL] (04/27/16 9:55 PM) Venous CL [99-109 109 mEq/L mEq/L] (04/27/16 9:55 PM) Anion Gap, Darron 13 [3-20] (04/27/16 9:55 PM) Screen, Negative Urine NPT (04/27/16 9:07 PM) 1Result Comment: This test was performed on a whole blood specimen. The presence or absence of hemolysis cannot be assessed. Hemolysis can falsely elevate potassium levels. Normals are for venous specimens only. Urinalysis Most recent to 1 oldest [Reference Range]: UA Color Yellow (04/27/16 9:06 PM) UA Appear Sl Cloudy (04/27/16 9:06 PM) UA pH [5.0-8.0] 6.0 (04/27/16 9:06 PM) UA Leuk Est Pos 3+ [Negative] *ABN* (04/27/16 9:06 PM) UA Nitrite Negative [Negative] (04/27/16 9:06 PM) UA Protein Negative [Negative] (04/27/16 9:06 PM) UA Glucose Negative [Negative] (04/27/16 9:06 PM) UA Ketones Trace [Negative] *ABN* (04/27/16 9:06 PM) UA Urobilinogen Negative [<1.0] (04/27/16 9:06 PM) UA Bili [Negative] Negative (04/27/16 9:06 PM) UA Blood [Negative] Negative (04/27/16 9:06 PM) UA Spec Grav 1.025 [1.003-1.030] (04/27/16 9:06 PM) Type Clean Catch (04/27/16 9:06 PM) UA WBC [0-4] 10-20 *ABN* (04/27/16 9:06 PM) UA RBC [0-2] 2-5 (04/27/16 9:06 PM) Epithelial Cells 5-10 (04/27/16 9:06 PM) UA Bacteria Occasional *ABN* (04/27/16 9:06 PM) UA Mucous Present (04/27/16 9:06 PM) Immunizations Vaccine Date Refusal Reason pneumococcal [...]
--- OUTSIDE RECORDS SUMMARY | 2017-01-20 22:18 | XMS REPORT | Referral Summary ---
Author Author [facility] Organization [facility] Address Unknown Phone Unavailable Care Team Providers Care Farm Equipment Service Technician Name Role Phone Imelda Martin Primary Care Physician [phone] Encounter VC Date(s): 05/18/16 - 05/18/16 [facility] [address] [facility] [address] [place], [place] [address] Discharge Diagnosis: Pseudoseizures Discharge Disposition: 01-Home or Self Care Attending Physician: Bryant Wilson APRN Admitting Physician: Bryant Wilson APRN Vital Signs Most recent to 1 oldest [Reference Range]: Peripheral Pulse 78 bpm Rate [60-100 bpm] (05/18/16 2:53 PM) Blood Pressure 128/86 mmHg [90-140/60-90 mmHg] (05/18/16 2:53 PM) Problem List Condition Effective Dates Status [...] HOURS APART, # 1 unknown unit, eRx: [facility] [id number], INHALE 1 PUFF BY INHALATION ROUTE 2 TIMES EVERY DAY IN THE MORNING AND EV... Start Date: 02/25/15 Status: Ordered Carafate 1 g/10 mL oral suspension 10 mL, Oral, QIDACHS, # 280 mL, 0 Refill(s), Pharmacy: [facility], 10 mL Oral QIDACHS [...] Refill(s), Pharmacy : [facility] [id number] Start Date: 06/11/15 Status: Ordered promethazine 25 [...] combined right and left heart Tonsillectomy Tympanostomy [place] tooth 1auto-populated from documented surgical case 2auto-populated from documented surgical case 3auto-populated from documented surgical case 4auto-populated from documented surgical case Social History Social History Type Response Smoking Status Never smoker Assessment and Plan Extracted from: Title: Epilepsy follow-up Author: Bryant Wilson II GRANT COORDINATOR Date: 05/18/16 Assessment/Plan Nonepileptic events 1. Scheduled for sleep deprived EEG. Ifthis is normalthen I will taper her off of the Keppraand instruct her again aboutnonepileptic events. 2. Scheduled to return to the clinic one week after the EEG. I reviewed this information with her. She had no questions. She is in agreement with this plan.
--- OUTSIDE RECORDS SUMMARY | 2017-01-20 22:18 | XMS REPORT | Referral Summary ---
Author Author [facility] Organization [facility] Address Unknown Phone Unavailable Care Team Providers Care Burlesque Dancer Name Role Phone Imelda Martin Primary Care Physician [phone] Encounter VC Date(s): 10/18/16 - 10/18/16 [facility] [address] [place] [address] [phone] Discharge Diagnosis: Anemia Discharge Diagnosis: Nausea Discharge Diagnosis: Nonspecific abdominal pain Discharge Diagnosis: Acute UTI Discharge Disposition: 01-Home or Self Care Attending Physician: Presley Frias MD Admitting Physician: Presley Frias MD Referring Physician: Self Referred, X Vital Signs Most recent to 1 oldest [Reference Range]: Temperature Oral 36.6 degC [35.8-37.3 degC] (10/18/16 10:19 AM) Peripheral Pulse 96 bpm Rate [60-100 bpm] (10/18/16 10:19 AM) Respiratory Rate 16 br/min [14-20 br/min] (10/18/16 10:19 AM) Blood Pressure 138/96 mmHg [90-140/60-90 mmHg] (10/18/16 10:19 AM) SpO2 94 % (10/18/16 10:19 AM) Problem List Condition Effective Dates Status [...] # 280 mL, 0 Refill(s), Pharmacy: [facility], 10 mL Oral QIDACHS Start Date: 02/15/16 Status: Ordered Claritin 10 mg, Oral, Daily, 0 Refill(s) Start Date: 01/23/16 Status: Ordered ibuprofen 600 mg oral tablet 600 mg 1 tabs, Oral, q6hr, # 40 tabs, 0 Refill(s) Start Date: 10/01/16 Status: Ordered Keppra 500 mg oral tablet 500 mg 1 tabs, Oral, BID, # 60 tabs, 0 Refill(s), [facility]: [id number], 1 tabs Oral BID Start Date: 07/12/16 Status: Ordered Keppra 500 mg oral tablet 500 mg 1 tabs, Oral, BID, # 60 tabs, 0 Refill(s) Start Date: 04/21/16 Stop Date: 05/21/16 Status: Ordered Levsin SL 0.125 mg sublingual tablet 0.125 mg 1 tabs, SubLingual, q4hr, # 12 tabs, 0 Refill(s) Start Date: 10/18/16 Status: Ordered Macrobid 100 mg oral capsule 100 mg 1 caps, Oral, BID, X 7 days, # 14 caps, 0 Refill(s) Start Date: 10/12/16 Stop Date: 10/19/16 Status: Ordered Macrobid 100 mg oral capsule 100 mg 1 caps, Oral, BID, X 7 days, # 14 caps, 0 Refill(s) Start Date: 10/18/16 Stop Date: 10/25/16 Status: Ordered ondansetron 4 mg oral tablet, disintegrating 4 mg 1 tabs, Oral, q8hr, Nausea, # 10 tabs, 0 Refill(s) Start Date: 10/18/16 Stop Date: 10/19/16 Status: Ordered paliperidone 3 [...] to 1 oldest [Reference Range]: WBC [4.8-10.8 5.3 10*3/uL 10*3/uL] (10/18/16 10:36 AM) RBC [4.00-5.20] 4.37 (10/18/16 10:36 AM) Hgb [12.0-16.0 10.3 gm/dL gm/dL] *LOW* (10/18/16 10:36 AM) Hct [37.0-47.0 %] 35.0 % *LOW* (10/18/16 10:36 AM) MCV [82.0-99.0 fL] 80.1 fL *LOW* (10/18/16 10:36 AM) MCH [27.0-32.0 pg] 23.6 pg *LOW* (10/18/16 10:36 AM) MCHC [32.0-36.0 29.4 gm/dL gm/dL] *LOW* (10/18/16 10:36 AM) RDW [11.5-14.5 %] 18.4 % *HI* (10/18/16 10:36 AM) Platelet [150-400 222 10*3/uL 10*3/uL] (10/18/16 10:36 AM) MPV [9.4-12.4 fL] 9.7 fL (10/18/16 10:36 AM) Immature 0.2 % Granulocytes (10/18/16 10:36 AM) [0.0-1.0 %] Neutrophils [51-75 57 % %] (10/18/16 10:36 AM) Lymphocytes [20-46 33 % %] (10/18/16 10:36 AM) Monocytes [4-11 %] 7 % (10/18/16 10:36 AM) Eosinophils [0-4 %] 3 % (10/18/16 10:36 AM) Basophils [0-2 %] 0 % (10/18/16 10:36 AM) Neutro Absolute 3.02 [1.90-7.00] (10/18/16 10:36 AM) Lymph Absolute 1.75 [0.80-3.30] (10/18/16 10:36 AM) [place] Absolute 0.38 [0.30-1.00] (10/18/16 10:36 AM) Eos Absolute 0.15 [0.00-0.50] (10/18/16 10:36 AM) Baso Absolute 0.01 [0.00-0.20] (10/18/16 10:36 AM) Nucleated RBC 0.0 /100 WBC Automated [0 /100 (10/18/16 10:36 AM) WBC] Chemistry Most recent to 1 oldest [Reference Range]: Sodium Lvl [136-144 136 mEq/L mEq/L] (10/18/16 10:36 AM) Potassium Lvl 3.6 mEq/L [3.6-5.1 mEq/L] (10/18/16 10:36 AM) Chloride [99-109 106 mEq/L mEq/L] (10/18/16 10:36 AM) CO2 [22-32 mEq/L] 21 mEq/L *LOW* (10/18/16 10:36 AM) AGAP [3-20] 9 (10/18/16 10:36 AM) BUN [4-20 mg/dL] 5 mg/dL (10/18/16 10:36 AM) Glucose Lvl [70-100 96 mg/dL mg/dL] (10/18/16 10:36 AM) Creatinine Lvl 0.66 mg/dL [0.44-1.03 mg/dL] (10/18/16 10:36 AM) eGFR [>60] >60 1 (10/18/16 10:36 AM) Calcium Lvl 8.7 mg/dL [8.6-10.0 mg/dL] (10/18/16 10:36 AM) Albumin Lvl [3.5-4.8 3.3 gm/dL gm/dL] *LOW* (10/18/16 10:36 AM) Total Protein 6.6 gm/dL [6.1-7.9 gm/dL] (10/18/16 10:36 AM) Globulin [1.9-4.3 3.3 gm/dL gm/dL] (10/18/16 10:36 AM) ALT [14-54 U/L] 17 U/L (10/18/16 10:36 AM) AST [15-41 U/L] 17 U/L (10/18/16 10:36 AM) Alk Phos [26-104 83 U/L U/L] (10/18/16 10:36 AM) Bili Total [0.2-1.2 0.7 mg/dL 2 mg/dL] (10/18/16 10:36 AM) Lipase Lvl [8-48 12 U/L U/L] (10/18/16 10:36 AM) 1Result Comment: Multiply eGFR results by 1.21 for race. 2Result Comment: Naproxen, specifically the metabolite O-desmethylnaproxen, may cause spurious elevation in Total Bilirubin levels. Urinalysis Most recent to 1 oldest [Reference Range]: UA Color Yellow (10/18/16 10:36 AM) UA Appear Sl Cloudy (10/18/16 10:36 AM) UA pH [5.0-8.0] 7.0 (10/18/16 10:36 AM) UA Leuk Est Pos 3+ [Negative] *ABN* (10/18/16 10:36 AM) UA Nitrite Negative [Negative] (10/18/16 10:36 AM) UA Protein Negative [Negative] (10/18/16 10:36 AM) UA Glucose Negative [Negative] (10/18/16 10:36 AM) UA Ketones Negative [Negative] (10/18/16 10:36 AM) UA Urobilinogen >=4.0 mg/dL [<1.0 mg/dL] (10/18/16 10:36 AM) UA Bili [Negative] Negative (10/18/16 10:36 AM) UA Blood [Negative] Negative (10/18/16 10:36 AM) UA Spec Grav 1.020 [1.003-1.030] (10/18/16 10:36 AM) Type Catheter (10/18/16 10:36 AM) UA WBC [0-4] 20-50 *ABN* (10/18/16 10:36 AM) Epithelial Cells 10-20 (10/18/16 10:36 AM) UA Bacteria Moderate *ABN* (10/18/16 10:36 AM) UA Mucous Present (10/18/16 10:36 AM) Immunizations Given and Recorded Vaccine Date Status Refusal Reason pneumococcal 23-polyvalent vaccine 11/18/14 Given Procedures Procedure Date Related Diagnosis Body Site Esophagogastroduodenoscopy - SN1 06/04/16 Esophagogastroduodenoscopy Foreign Body 01/06/16 Removal2 Procedure with Anesthesia3 01/06/16 Esophagogastroduodenoscopy Balloon Dilat4 02/14/15 Examination Under Anesthesia5 5/1/15 Adenoidectomy Bilateral tubal ligation Bronchoscope Cardiac catheterization, combined right and left heart Tonsillectomy Tympanostomy [place] tooth 1auto-populated from documented surgical case 2auto-populated from documented surgical case 3auto-populated from documented surgical case 4auto-populated from documented surgical case 5auto-populated from documented surgical case Social History Social History Type Response Smoking Status Never smoker Assessment and Plan No data available for this section
--- OUTSIDE RECORDS SUMMARY | 2017-01-20 22:18 | XMS REPORT | Referral Summary ---
Author Author [facility] Organization [facility] Address Unknown Phone Unavailable Care Team Providers Care Splicer Machine Operator Name Role Phone Imelda Martin Primary Care Physician [phone] Encounter VC Date(s): 10/05/16 - 10/06/16 [facility] [address] [place] [address] [phone] Discharge Diagnosis: Tobacco abuse Discharge Diagnosis: Tobacco abuse counseling Final: Unspecified abdominal pain Final: Nicotine dependence, cigarettes, uncomplicated Final: Tobacco abuse counseling Discharge Diagnosis: Abdominal pain, acute Discharge Disposition: 01-Home or Self Care Attending Physician: Maxx Torres JR, MD Admitting Physician: Jace Ricks DO Vital Signs Most recent to 1 oldest [Reference Range]: Peripheral Pulse 79 bpm Rate [60-100 bpm] (10/06/16 12:44 AM) Heart Rate Monitored 78 bpm [60-100 bpm] (10/06/16 12:00 AM) Respiratory Rate 18 br/min [14-20 br/min] (10/06/16 12:44 AM) Blood Pressure 116/77 mmHg [90-140/60-90 mmHg] (10/06/16 12:44 AM) Mean Arterial 80 mmHg Pressure, Cuff (10/06/16 12:00 AM) SpO2 97 % (10/06/16 12:44 AM) Problem List Condition Effective Dates Status [...] BID, # 60 tabs, 0 Refill(s), Pharmacy: [id number], 1 tabs Oral BID Start Date: 07/12/16 [...] [Reference Range]: WBC [4.8-10.8 7.8 10*3/uL 10*3/uL] (10/05/16 11:42 PM) RBC [4.00-5.20] 4.12 (10/05/16 11:42 PM) Hgb [12.0-16.0 9.7 gm/dL gm/dL] *LOW* (10/05/16 11:42 PM) Hct [37.0-47.0 %] 32.3 % *LOW* (10/05/16 11:42 PM) MCV [82.0-99.0 fL] 78.4 fL *LOW* (10/05/16 11:42 PM) MCH [27.0-32.0 pg] 23.5 pg *LOW* (10/05/16 11:42 PM) MCHC [32.0-36.0 30.0 gm/dL gm/dL] *LOW* (10/05/16 11:42 PM) RDW [11.5-14.5 %] 18.3 % *HI* (10/05/16 11:42 PM) Platelet [150-400 217 10*3/uL 10*3/uL] (10/05/16 11:42 PM) MPV [9.4-12.4 fL] 9.3 fL *LOW* (10/05/16 11:42 PM) Immature 0.1 % Granulocytes (10/05/16 11:42 PM) [0.0-1.0 %] Neutrophils [51-75 64 % %] (10/05/16 11:42 PM) Lymphocytes [20-46 27 % %] (10/05/16 11:42 PM) Monocytes [4-11 %] 7 % (10/05/16 11:42 PM) Eosinophils [0-4 %] 2 % (10/05/16 11:42 PM) Basophils [0-2 %] 0 % (10/05/16 11:42 PM) Neutro Absolute 4.97 10*3 [1.90-7.00 10*3] (10/05/16 11:42 PM) Lymph Absolute 2.15 10*3 [0.80-3.30 10*3] (10/05/16 11:42 PM) [place] Absolute 0.52 10*3 [0.30-1.00 10*3] (10/05/16 11:42 PM) Eos Absolute 0.18 10*3 [0.00-0.50 10*3] (10/05/16 11:42 PM) Baso Absolute 0.01 10*3 [0.00-0.20 10*3] (10/05/16 11:42 PM) Nucleated RBC 0.0 /100 WBC Automated [0 /100 (10/05/16 11:42 PM) WBC] Chemistry Most recent to 1 oldest [Reference Range]: Sodium Lvl [136-144 138 mEq/L mEq/L] (10/05/16 11:42 PM) Potassium Lvl 3.6 mEq/L [3.6-5.1 mEq/L] (10/05/16 11:42 PM) Chloride [99-109 108 mEq/L mEq/L] (10/05/16 11:42 PM) CO2 [22-32 mEq/L] 23 mEq/L (10/05/16 11:42 PM) AGAP [3-20] 7 (10/05/16 11:42 PM) BUN [4-20 mg/dL] 6 mg/dL (10/05/16 11:42 PM) Glucose Lvl [70-100 85 mg/dL mg/dL] (10/05/16 11:42 PM) Creatinine Lvl 0.60 mg/dL [0.44-1.03 mg/dL] (10/05/16 11:42 PM) eGFR [>60] >60 1 (10/05/16 11:42 PM) Calcium Lvl 9.1 mg/dL [8.6-10.0 mg/dL] (10/05/16 11:42 PM) Albumin Lvl [3.5-4.8 3.1 gm/dL gm/dL] *LOW* (10/05/16 11:42 PM) Total Protein 6.7 gm/dL [6.1-7.9 gm/dL] (10/05/16 11:42 PM) Globulin [1.9-4.3 3.6 gm/dL gm/dL] (10/05/16 11:42 PM) ALT [14-54 U/L] 13 U/L *LOW* (10/05/16 11:42 PM) AST [15-41 U/L] 12 U/L *LOW* (10/05/16 11:42 PM) Alk Phos [26-104 76 U/L U/L] (10/05/16 11:42 PM) Bili Total [0.2-1.2 0.7 mg/dL 2 mg/dL] (10/05/16 11:42 PM) Lipase Lvl [8-48 20 U/L U/L] (10/05/16 11:42 PM) Screen, Negative Urine NPT (10/05/16 8:34 PM) 1Result Comment: Multiply eGFR results by 1.21 for race. 2Result Comment: Naproxen, specifically the metabolite O-desmethylnaproxen, may cause spurious elevation in Total Bilirubin levels. Urinalysis Most recent to 1 oldest [Reference Range]: UA Color Straw (10/05/16 8:30 PM) UA Appear Clear (10/05/16 8:30 PM) UA pH [5.0-8.0] 7.0 (10/05/16 8:30 PM) UA Leuk Est Trace [Negative] *ABN* (10/05/16 8:30 PM) UA Nitrite Negative [Negative] (10/05/16 8:30 PM) UA Protein Negative [Negative] (10/05/16 8:30 PM) UA Glucose Negative [Negative] (10/05/16 8:30 PM) UA Ketones Negative [Negative] (10/05/16 8:30 PM) UA Urobilinogen Negative [<1.0] (10/05/16 8:30 PM) UA Bili [Negative] Negative (10/05/16 8:30 PM) UA Blood [Negative] Negative (10/05/16 8:30 PM) UA Spec Grav 1.005 [1.003-1.030] (10/05/16 8:30 PM) Type Clean Catch (10/05/16 8:30 PM) UA WBC [0-4] 2-5 (10/05/16 8:30 PM) UA RBC [0-2] 0-2 (10/05/16 8:30 PM) Epithelial Cells 0-2 (10/05/16 8:30 PM) UA Bacteria Rare (10/05/16 8:30 PM) Immunizations Given and Recorded Vaccine Date Status Refusal Reason pneumococcal 23-polyvalent vaccine 11/18/14 Given Procedures Procedure Date Related Diagnosis Body Site Esophagogastroduodenoscopy - SN1 06/04/16 Esophagogastroduodenoscopy Foreign Body 01/06/16 Removal2 Procedure with Anesthesia3 01/06/16 Esophagogastroduodenoscopy Balloon Dilat4 02/14/15 Examination Under Anesthesia5 02/14/15 Adenoidectomy Bilateral tubal ligation Bronchoscope Cardiac catheterization, combined right and left heart Tonsillectomy Tympanostomy [place] tooth 1auto-populated from documented surgical case 2auto-populated from documented surgical case 3auto-populated from documented surgical case 4auto-populated from documented surgical case 5auto-populated from documented surgical case Social History Social History Type Response Smoking Status Never smoker Assessment and Plan No data available for this section
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
--- OUTSIDE RECORDS SUMMARY | 2017-01-20 22:19 | XMS REPORT | Referral Summary ---
Author Author [facility] Organization [facility] Address Unknown Phone Unavailable Care Team Providers Care Storage Specialist Name Role Phone Imelda Martin Primary Care Physician [phone] Encounter Date(s): 02/20/15 - 02/20/15 [facility] [address] [place] [address] Discharge Diagnosis: Anemia Discharge Disposition: 01-Home or [...] pain, # 300 mL, 0 Refill(s), Pharmacy: [facility] [address], 10 mL Oral q6hr,PRN:as needed for pain Start Date: 12/24/14 Status: Ordered Advair Diskus 250 mcg-50 mcg inhalation powder See Instructions, INHALE 1 PUFF BY INHALATION ROUTE 2 TIMES EVERY DAY IN THE MORNING AND EVENING APPROXIMATELY 12 HOURS APART, # 1 unknown unit, eRx: [facility] [id number], INHALE 1 PUFF BY INHALATION ROUTE 2 TIMES EVERY DAY IN THE MORNING AND EV... Start Date: 02/25/15 Status: Ordered albuterol 2.5 mg/3 mL (0.083%) inhalation solution 3 mL, Inhalation, q6hr (scheduled), # 60 Each, 1 Refill(s), Pharmacy: [facility] [address], 3 mL Inhalation q6hr (scheduled) Start Date: 02/13/15 Status: Ordered Atrovent 42 mcg/inh nasal spray 2 sprays, Nasal, TID, # 2 Each, 5 Refill(s), Pharmacy: [facility] [address] Start Date: 06/11/15 Stop Date: 06/11/16 Status: Ordered Carafate 1 g oral tablet 1 g 1 tabs, Oral, QID, Dissolve in water and drink, # 40 tabs, 0 Refill(s) Start Date: 08/31/15 Status: Ordered cetirizine 10 mg oral tablet 10 mg 1 tabs, Oral, Daily, # 30 tabs, 5 Refill(s), Pharmacy: [facility] [address], 1 tabs Oral Daily Start Date: 09/01/15 Status: Ordered Chloraseptic [place] 1.4% topical spray 5 sprays, Oral, q2hr, # 10 mL, 0 Refill(s) Start Date: 08/11/15 Stop Date: 08/11/16 Status: Ordered levETIRAcetam 500 mg oral tablet See Instructions, TAKE 3 TABLETS BY MOUTH TWICE DAILY, # 180 tabs, 12 Refill(s) , eRx: [facility] [id number], TAKE 3 TABLETS BY MOUTH TWICE DAILY Start Date: 02/27/15 Status: Ordered Levsin 0.125 mg oral tablet 0.125 mg 1 tabs, Oral, QID, # 15 tabs, 0 Refill(s) Start Date: 08/27/15 Status: Ordered Linzess 290 mcg oral capsule 1 caps, Oral, Daily, # 30 caps, 6 Refill(s), Pharmacy: [email or web address] [address], 1 caps Oral Daily Start Date: 02/24/15 Status: Ordered loratadine 10 mg oral tablet 10 mg, Oral, Daily, # 30 tabs, 5 Refill(s), Pharmacy: [email or web address] [address] , 10 mg Oral Daily Start Date: [...] Each, 1 Refill(s), Pharmacy : [email or web address] [address] Start Date: 06/11/15 Status: Ordered traZODone Oral, [...] 1.53 10*3 [0.80-3.30 10*3] (02/20/15 2:02 PM) [place] Absolute 0.39 10*3 [0.30-1.00 10*3] (02/20/15 2:02 [...] combined right and left heart Tonsillectomy Tympanostomy [place] tooth 1auto-populated from documented surgical case 2auto-populated from documented surgical case Social History Social History Type Response Smoking Status Former smoker; Type: Cigarettes; Tobacco use per day: 1 Pack1 1quit 05/2015 Assessment and Plan Extracted from: Title: Ambulatory Patient Education Author: Rafael Katz MD Date: 02/20/15 No follow up information was provided.
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
--- OUTSIDE RECORDS SUMMARY | 2017-01-20 22:19 | XMS REPORT | Referral Summary ---
Author Author [facility] Organization [facility] Address Unknown Phone Unavailable Care Team Providers Care Quantitative Consultant Name Role Phone Imelda Martin Primary Care Physician [phone] Encounter Date(s): 09/08/15 - 09/09/15 [facility] [address] [place], [place] [address] Discharge Diagnosis: Chronic abdominal pain Discharge Diagnosis: Anemia Discharge Diagnosis: Chest pain Discharge Disposition: 01-Home or Self Care Attending Physician: Santos Wells DO Admitting Physician: Santos Wells DO Vital Signs Most recent to 1 2 oldest [Reference Range]: Temperature Oral 37.1 degC [35.8-37.3 degC] (09/08/15 10:21 PM) Peripheral Pulse 92 bpm Rate [60-100 bpm] (09/09/15 1:30 AM) Heart Rate Monitored 84 bpm [60-100 bpm] (09/09/15 1:30 AM) Respiratory Rate 17 br/min [14-20 br/min] (09/09/15 1:30 AM) Blood Pressure 109/73 mmHg 109/73 mmHg [90-140/60-90 mmHg] (09/09/15 1:30 AM) (09/09/15 1:30 AM) Mean Arterial 86 mmHg Pressure, Cuff (09/09/15 1:30 AM) SpO2 99 % 99 % (09/09/15 1:30 AM) (09/09/15 1:30 AM) Problem List Condition Effective Dates Status [...] pain, # 300 mL, 0 Refill(s), Pharmacy: [id number], 10 mL Oral q6hr,PRN:as needed for pain Start Date: 12/24/14 Status: Ordered Advair Diskus 250 mcg-50 mcg inhalation powder See Instructions, INHALE 1 PUFF BY INHALATION ROUTE 2 TIMES EVERY DAY IN THE MORNING AND EVENING APPROXIMATELY 12 HOURS APART, # 1 unknown unit, eRx: [facility] [id number], INHALE 1 PUFF BY INHALATION ROUTE 2 TIMES EVERY DAY IN THE MORNING AND EV... Start Date: 02/25/15 Status: Ordered albuterol 2.5 mg/3 mL (0.083%) inhalation solution 3 mL, Inhalation, q6hr (scheduled), # 60 Each, 1 Refill(s), Pharmacy: [facility] 61450, 3 mL Inhalation q6hr (scheduled) Start Date: 02/13/15 Status: Ordered Atrovent 42 mcg/inh nasal spray 2 sprays, Nasal, TID, # 2 Each, 5 Refill(s), Pharmacy: [facility] 98136 Start Date: 06/11/15 Stop Date: 06/11/16 Status: Ordered Carafate 1 g oral tablet 1 g 1 tabs, Oral, QID, Dissolve in water and drink, # 40 tabs, 0 Refill(s) Start Date: 08/31/15 Status: Ordered cetirizine 10 mg oral tablet 10 mg 1 tabs, Oral, Daily, # 30 tabs, 5 Refill(s), Pharmacy: [facility] [address], 1 tabs Oral Daily Start Date: 09/01/15 Status: Ordered levETIRAcetam 500 mg oral tablet See Instructions, TAKE 3 TABLETS BY MOUTH TWICE DAILY, # 180 tabs, 12 Refill(s) , [id number], TAKE 3 TABLETS BY MOUTH TWICE DAILY Start Date: 02/27/15 Status: Ordered Linzess 290 mcg oral capsule 1 caps, Oral, Daily, # 30 caps, 6 Refill(s), Pharmacy: [facility] [address], 1 caps Oral Daily Start Date: 02/24/15 Status: Ordered loratadine 10 mg oral tablet 10 mg, Oral, Daily, # 30 tabs, 5 Refill(s), [facility] , 10 mg Oral Daily Start Date: [...] # 1 Each, 1 Refill(s), [facility] Start Date: 06/11/15 Status: Ordered traZODone Oral, [...] to 1 oldest [Reference Range]: WBC [4.8-10.8 7.7 10*3/uL 10*3/uL] (09/09/15 12:10 AM) RBC [4.00-5.20] 3.84 *LOW* (09/09/15 12:10 AM) Hgb [12.0-16.0 8.7 gm/dL gm/dL] *LOW* (09/09/15 12:10 AM) Hct [37.0-47.0 %] 30.7 % *LOW* (09/09/15 12:10 AM) MCV [82.0-99.0 fL] 79.9 fL *LOW* (09/09/15 12:10 AM) MCH [27.0-32.0 pg] 22.7 pg *LOW* (09/09/15 12:10 AM) MCHC [32.0-36.0 28.3 gm/dL gm/dL] *LOW* (09/09/15 12:10 AM) RDW [11.5-14.5 %] 19.1 % *HI* (09/09/15 12:10 AM) Platelet [150-400 234 10*3/uL 10*3/uL] (09/09/15 12:10 AM) MPV [9.4-12.4 fL] 9.8 fL (09/09/15 12:10 AM) Immature 0.5 % Granulocytes (09/09/15 12:10 AM) [0.0-1.0 %] Neutrophils [51-75 60 % %] (09/09/15 12:10 AM) Lymphocytes [20-46 29 % %] (09/09/15 12:10 AM) Monocytes [4-11 %] 6 % (09/09/15 12:10 AM) Eosinophils [0-4 %] 2 % (09/09/15 12:10 AM) Basophils [0-2 %] 3 % *HI* (09/09/15 12:10 AM) Neutro Absolute 4.56 10*3 [1.90-7.00 10*3] (09/09/15 12:10 AM) Lymph Absolute 2.25 10*3 [0.80-3.30 10*3] (09/09/15 12:10 AM) [place]isher Absolute 0.49 10*3 [0.30-1.00 10*3] (09/09/15 12:10 AM) Eos Absolute 0.12 10*3 [0.00-0.50 10*3] (09/09/15 12:10 AM) Baso Absolute 0.20 10*3 [0.00-0.20 10*3] (09/09/15 12:10 AM) Polychrom Occasional *ABN* (09/09/15 12:10 AM) Microcyte Present *ABN* (09/09/15 12:10 AM) Nucleated RBC 0.0 /100 WBC Automated [0 /100 (09/09/15 12:10 AM) WBC] Differential Scanned Slide (09/09/15 12:10 AM) Chemistry Most recent to 1 oldest [Reference Range]: Sodium Lvl [136-144 137 mEq/L mEq/L] (09/09/15 12:10 AM) Potassium Lvl 4.5 mEq/L [3.6-5.1 mEq/L] (09/09/15 12:10 AM) Chloride [99-109 106 mEq/L mEq/L] (09/09/15 12:10 AM) CO2 [22-32 mEq/L] 23 mEq/L (09/09/15 12:10 AM) AGAP [3-20] 8 (09/09/15 12:10 AM) BUN [4-20 mg/dL] 9 mg/dL (09/09/15 12:10 AM) Glucose Lvl [70-100 89 mg/dL mg/dL] (09/09/15 12:10 AM) Creatinine Lvl 0.61 mg/dL [0.44-1.03 mg/dL] (09/09/15 12:10 AM) eGFR [>60] >60 1 (09/09/15 12:10 AM) Calcium Lvl 8.5 mg/dL [8.6-10.0 mg/dL] *LOW* (09/09/15 12:10 AM) Albumin Lvl [3.5-4.8 3.0 gm/dL gm/dL] *LOW* (09/09/15 12:10 AM) Total Protein 6.4 gm/dL [6.1-7.9 gm/dL] (09/09/15 12:10 AM) Globulin [1.9-4.3 3.4 gm/dL gm/dL] (09/09/15 12:10 AM) ALT [14-54 U/L] 11 U/L *LOW* (09/09/15 12:10 AM) AST [15-41 U/L] 21 U/L (09/09/15 12:10 AM) Alk Phos [26-104 70 U/L U/L] (09/09/15 12:10 AM) Bili Total [0.2-1.2 0.9 mg/dL 2 mg/dL] (09/09/15 12:10 AM) Lipase Lvl [8-48 21 U/L U/L] (09/09/15 12:10 AM) Screen, Negative Urine NPT (09/08/15 11:54 PM) 1Result Comment: Multiply eGFR results by [...] right and left heart Tonsillectomy Tympanostomy [place] tooth 1auto-populated from documented surgical case 2auto-populated from documented surgical case Social History Social History Type Response Smoking Status Former smoker; Type: Cigarettes; Tobacco use per day: 1 Pack1 1quit 05/2015 Assessment and Plan No data available for this section
--- OUTSIDE RECORDS SUMMARY | 2017-01-20 22:19 | XMS REPORT | Continuity of Care Document ---
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 Seizure disorder - *Chronic Asthma - *Chronic GERD (gastroesophageal reflux disease) - *Poor control Accidental poisoning by second-hand tobacco smoke - *Chronic as incidental finding - Stable Asthma - *Chronic GERD - Improved Tobacco Abuse - Recurrent Alteration of consciousness - *Chronic 311 - DEPRESSIVE DISORDER NEC [...] Dosage Effective Dates (start - stop) Status levetiracetam 1,000 mg tablet take 1 tablet (1000MG) by oral route every 12 hours 1000 MG - Active Flintstones Complete chewable tablet chew and swallow one [...] route every day before bedtime - Active Immunizations Vaccine Date Status Comments Unknown Results Test Name Date and Time Measure Units Reference Range Abnormal Flag Comments Panel Description: Creatinine Creatinine 11:45:00 0.65 mg/dL 0.57-1.11 Panel Description: eGFR eGFR 11:45:00 >60 mL/min >60 Multiply eGFR results by 1.21 for race. Panel Description: ERIKA ERIKA 11:45:00 20 U/L 8 - 53 Test Performed by:[address] [id number] Director: Johnny Valenzuela III, M.D. Panel Description: Lyme Disease EIA Lyme Disease EIA 11:45:00 Negative Negative Vital Signs Date / Time: Height Weight Pulse Rate Blood Pressure Temperature /10:52:00 62.50 in 220.30 lbs 64 /min 120/80 mm[Hg] Procedures Procedure Date Unknown Encounters Encounter Location Date Patient Visit [facility] Neuro Patient Visit [facility] Pulct Patient Visit [facility] Pulct Patient Visit [facility] Patient [facility] Patient [facility] Neuro Patient Visit [facility] Patient Visit [facility] Neuro Advance Directives Directive Effective Date Unknown
--- OUTSIDE RECORDS SUMMARY | 2017-01-20 22:19 | XMS REPORT ---
Author Author GENERATED, SYSTEM Organization Unknown Address Unknown Phone Unavailable Care Team Providers Care Inspector Quality Assurance Name Role Phone UNASSIGNED DOCTOR , DOCTOR PP [phone] Reason For Visit Chief Complaint ABD PAIN Social History Functional Status Vital Signs Results Chemistry from 05/08/2015 2:27 AMSODIUM 140 MMOL/L (136-145 MMOL/L) POTASSIUM 3.7 MMOL/L (3.5-5.1 MMOL/L) CHLORIDE 105 MMOL/L (98-107 MMOL/L) TCO2 22.3 MMOL/L (21.0-32.0 MMOL/L) ANION GAP 12.7 MMOL/L (8.0-16.0 MMOL/L) BUN 8 MG/DL (7-18 MG/DL) CREATININE 0.43 MG/DL (0.43-0.83 MG/DL) BUN/CREATININE RATIO 18.6 H (9.1-17.0 ) GLUCOSE 83 MG/DL (65-99 MG/DL) GFR EST NON AFR MONEGASQUE >90 ML/MIN GFRA EST AFR AMER >90 ML/MIN CALCIUM 8.5 MG/DL (8.5-10.1 MG/DL) BILIRUBIN TOTAL 0.45 MG/DL (0.20-1.00 MG/DL) TOTAL PROTEIN 7.2 GM/DL (6.4-8.2 GM/DL) ALBUMIN 3.2 GM/DL L (3.4-5.0 GM/DL) GLOBULIN 4.0 GM/DL H (2.3-3.5 GM/DL) A/G RATIO 0.8 MG/DL L (1.5-2.2 MG/DL) ALK PHOS 91 U/L (46-116 U/L) ALT (SGPT) 18 U/L (16-63 U/L) AST (SGOT) 19 U/L (15-37 U/L) LIPASE 153 U/L (73-393 U/L) TEST NEGATIVE (NEGATIVE ) Hematology from 05/08/2015 2:27 AMWBC 7.3 X10e3/UL (3.6-11.2 X10e3/UL) RBC 4.24 X10e6/UL (3.63-4.92 X10e6/UL) HEMOGLOBIN 10.8 G/DL L (11.0-14.3 G/DL) HEMATOCRIT 34.0 % (31.2-41.9 %) MCV 80.2 FL (79.0-98.0 FL) MCH 25.5 PG L (27.0-33.0 PG) MCHC 31.9 G/DL L (32.0-36.0 G/DL) RDW 16.8 % (12.3-17.0 %) PLATELET 215 X10e3/UL (159-386 X10e3/UL) MPV 7.8 FL (7.4-10.4 FL) AUTOMATED DIFF PERFORMED SEGS 61.2 % LYMPHOCYTES 27.4 % MONOCYTES 9.1 % EOSINOPHILS 1.5 % BASOPHILS 0.8 % ABSOLUTE NEUTROPHILS 4.40 X10e3/UL (1.80-7.80 X10e3/UL) ABSOLUTE LYMPHOCYTES 2.00 X10e3/UL (1.00-3.00 X10e3/UL) ABSOLUTE MONOCYTES 0.70 X10e3/UL (0.30-1.00 X10e3/UL) ABSOLUTE EOSINOPHILS 0.10 X10e3/UL (0.00-0.50 X10e3/UL) ABSOLUTE BASOPHILS 0.10 X10e3/UL (0.00-0.20 X10e3/UL) Urinalysis from 05/08/2015 2:00 AM* Status: Final Result URINALYSIS Specimen Number: [id number] Sample Collection Date/Time: 05/08/2015 2:00 AM Specimen Source: URINE COLOR YELLOW (STRAW/YELL/DK YELL ) URINE APPEARANCE CLEAR (CLEAR ) URINE PH 6.0 (5.0-8.0 ) URINE SPECIFIC GRAVITY 1.010 (<=1.005->=1.030 ) URINE GLUCOSE NEGATIVE MG/DL (NEGATIVE MG/DL) URINE BILIRUBIN NEGATIVE (NEGATIVE ) URINE KETONES NEGATIVE MG/DL (NEGATIVE MG/DL) URINE BLOOD TRACE-INTACT A (NEGATIVE ) URINE PROTEIN NEGATIVE MG/DL (NEGATIVE MG/DL) URINE UROBILINOGEN 0.2 EU/DL (0.2-1.0 EU/DL) URINE NITRITES NEGATIVE (NEGATIVE ) *URINE LEUKOCYTES SMALL A (NEGATIVE ) MICROSCOPIC EXAM PERFORMED PERFORMED WBC 1-5 /HPF (0-5 /HPF) RBC 0-1 /HPF (0-1 /HPF) SQUAMOUS EP. CELLS MODERATE /LPF A (NEG-FEW /LPF) BACTERIA FEW /HPF A (NEGATIVE /HPF) AMORPH. URATE KHOA. FEW /HPF (NEGATIVE /HPF) CT Scan from 05/08/2015 2:56 AMCT ABD/PELVIS W/CONTRAST History: Lower abdominal pain, nausea vomiting. Technique: Post contrast images were performed after the administration of 95 milliliters of Isovue intravenous contrast. Priors: None. Findings: Abdomen Lung bases: Clear There is a large sliding-type hiatal hernia with the majority the stomach in the inferior mediastinum. Liver: Normal density. No definable mass. Spleen: Normal. Pancreas: No discrete mass or inflammatory process. Gallbladder and biliary tract: No radiodense calculus or dilation. Adrenal glands: Normal. Kidneys: Normal enhancement. No masses. No radiodense stones or hydronephrosis. Urinary Bladder: Normal. Aorta: Normal in caliber. No periaortic lymphadenopathy. Bowel and Mesentery: Grossly normal. No findings of appendicitis. Ascites: None. Pelvis Lymphadenopathy: None. Reproductive: There is been resolution of 2 right ovarian cyst since the previous study. There has been development of a 2.5 severe simple appearing left ovarian cyst which is likely physiologic Osseous Structures: No suspicious findings. Impression: Large sliding-type hiatal hernia. No acute abnormality is identified. Electronically signed by: Pranay Shin MD Dictated: 05/08/2015 07:45 Problems Encounter Diagnosis No relevant problems exist. [...]
--- OUTSIDE RECORDS SUMMARY | 2017-01-20 22:19 | XMS REPORT | Referral Summary ---
Author Author [facility] Organization [facility] Address Unknown Phone Unavailable Care Team Providers Care Hvac Design Mechanical Engineer Name Role Phone Imelda Martin Primary Care Physician [phone] Encounter VC Date(s): 02/17/15 - 02/17/15 [facility] [address] [place] [address] [facility] Discharge Diagnosis: Dyspnea Discharge Diagnosis: Difficulty breathing Discharge Diagnosis: Dizziness Discharge Disposition: 01-Home or Self Care Attending Physician: Vandana French MD Admitting Physician: Vandana French MD Vital Signs Most recent to 1 oldest [Reference Range]: Respiratory Rate 96 br/min [14-20 br/min] *HI* (02/17/15 2:18 PM) Blood Pressure 136/80 mmHg [90-140/60-90 mmHg] (02/17/15 2:18 PM) SpO2 97 % (02/17/15 2:18 PM) Problem List Condition Effective Dates Status [...] pain, # 300 mL, 0 Refill(s), Pharmacy: [facility] 66[facility], 10 mL Oral q6hr,PRN:as needed for pain Start Date: 12/24/14 Status: Ordered Advair Diskus 250 mcg-50 mcg inhalation powder See Instructions, INHALE 1 PUFF BY INHALATION ROUTE 2 TIMES EVERY DAY IN THE MORNING AND EVENING APPROXIMATELY 12 HOURS APART, # 1 unknown unit, eRx: [facility] [id number], INHALE 1 PUFF BY INHALATION ROUTE 2 TIMES EVERY DAY IN THE MORNING AND EV... Start Date: 02/25/15 Status: Ordered albuterol 2.5 mg/3 mL (0.083%) inhalation solution 3 mL, Inhalation, q6hr (scheduled), # 60 Each, 1 Refill(s), Pharmacy: [facility] 44432, 3 mL Inhalation q6hr (scheduled) Start Date: 02/13/15 Status: Ordered Atrovent 42 mcg/inh nasal spray 2 sprays, Nasal, TID, # 2 Each, 5 Refill(s), Pharmacy: [facility] [address] Start Date: 06/11/15 Stop Date: 06/11/16 Status: Ordered Chloraseptic [place] 1.4% topical spray 5 sprays, Oral, q2hr, # 10 mL, 0 Refill(s) Start Date: 08/11/15 Stop Date: 08/11/16 Status: Ordered levETIRAcetam 500 mg oral tablet See Instructions, TAKE 3 TABLETS BY MOUTH TWICE DAILY, # 180 tabs, 12 Refill(s) , eRx: [facility] [id number], TAKE 3 TABLETS BY MOUTH TWICE DAILY Start Date: 02/27/15 Status: Ordered Levsin 0.125 mg oral tablet 0.125 mg 1 tabs, Oral, QID, # 15 tabs, 0 Refill(s) Start Date: 08/27/15 Status: Ordered Linzess 290 mcg oral capsule 1 caps, Oral, Daily, # 30 caps, 6 Refill(s), Pharmacy: [facility] [address], 1 caps Oral Daily Start Date: 02/24/15 Status: Ordered loratadine 10 mg oral tablet 10 mg, Oral, Daily, # 30 tabs, 5 Refill(s), Pharmacy: [facility] [address] , 10 mg Oral Daily Start Date: [...] Each, 1 Refill(s), Pharmacy : [facility] [address] Start Date: 06/11/15 Status: Ordered traZODone Oral, [...] combined right and left heart Tonsillectomy Tympanostomy [place] tooth 1auto-populated from documented surgical case 2auto-populated from documented surgical case Social History Social History Type Response Smoking Status Former smoker; Type: Cigarettes; Tobacco use per day: 1 Pack1 1quit 05/2015 Assessment and Plan Extracted from: Title: Office Visit Note Author: Vandana French MD Date: 02/17/15 Assessment/Plan Dizziness with associated shortness of breath. Even though she had no evidence of obstruction on PFT or wheezing on exam, she was treated with albuterol neb, she had some improvement of shortnes soft breath but was still very lightheaded. After report was called to immediate care, she was transferred to immediate care for further management.
--- OUTSIDE RECORDS SUMMARY | 2017-01-20 22:19 | XMS REPORT | Referral Summary ---
Author Organization Unknown Address Unknown Phone Unavailable Care Team Providers Care Bread Jockey Name Role Phone Pardeep Poole Primary Care Physician [phone] Encounter VC Date(s): 01/06/15 - 01/06/15 [facility] [address] [facility] [place] [address] Discharge Diagnosis: Epistaxis, recurrent Discharge Disposition: Home or Self Care Attending Physician: Rafael Katz MD Admitting Physician: Rafael Katz MD Referring Physician: Sarah Poole MD Vital Signs Most recent to 1 oldest [Reference Range]: Blood Pressure 110/80 mmHg [90-140/60-90 mmHg] (01/06/15 1:53 PM) Problem List Condition Effective Dates Status [...] pain, # 300 mL, 0 Refill(s), Pharmacy: [id number], 10 mL Oral q6hr,PRN:as needed for pain Start Date: 12/24/14 Status: Ordered Advair Diskus 250 mcg-50 mcg inhalation powder See Instructions, INHALE 1 PUFF BY INHALATION ROUTE 2 TIMES EVERY DAY IN THE MORNING AND EVENING APPROXIMATELY 12 HOURS APART, # 1 unknown unit, 1 Refill(s) , eRx: [facility] [id number], INHALE 1 PUFF BY INHALATION ROUTE 2 TIMES EVERY DAY IN THE M... Special Instructions: INHALE 1 PUFF BY INHALATION ROUTE 2 TIMES EVERY DAY IN THE MORNING AND EVENING APPROXIMATELY 12 HOURS APART Start Date: 12/02/14 Status: Ordered Flonase 50 mcg/inh nasal spray 2 sprays, Nasal, Daily, # 1 Each, 5 Refill(s), Pharmacy: [facility] [address] Start Date: 12/03/14 Status: Ordered FLUoxetine 20 mg, Oral, qAM, 0 Refill(s) Start Date: 11/18/14 Status: Ordered imipramine 25 mg oral tablet 2 tabs, Oral, Bedtime (once a day), # 60 tabs, 3 Refill(s), Pharmacy: [facility] [address]272, 2 tabs Oral Bedtime (once a day) [...] 0 Refill(s) Start Date: 11/18/14 Status: Ordered [place] 5 mg-325 mg oral tablet 1 tabs, [...] Body Site Control nasal hemorrhage, anterior, simple 01/06/15 (limited cautery and/or packing) any method Adenoidectomy Bilateral tubal ligation Bronchoscope Tonsillectomy Tympanostomy Orange tooth Social History Social History Type Response Smoking Status Current every day smoker; Type: Cigarettes; Tobacco use per day: Pack Assessment and Plan Extracted from: Title: Ambulatory Patient Education Author: Rafael Katz MD Date: 01/06/15 No follow up information was provided.
--- OUTSIDE RECORDS SUMMARY | 2017-01-20 22:19 | XMS REPORT | Referral Summary ---
Author Author [facility] Organization [facility] Address Unknown Phone Unavailable Care Team Providers Care Warehouse Traffic Supervisor Name Role Phone Nisha Colindres Primary Care Physician [phone] Encounter VC TERRELL [id number] Date(s): 11/26/16 - 11/27/16 [facility] [address] [place] [address] Discharge Diagnosis: Breast pain Discharge Disposition: 01-Home or Self Care Attending Physician: Vance Lei MD Admitting Physician: Vance Lei MD Vital Signs Most recent to 1 oldest [Reference Range]: Temperature Oral 36.7 degC [35.8-37.3 degC] (11/26/16 10:30 PM) Peripheral Pulse 99 bpm Rate [60-100 bpm] (11/27/16 12:07 AM) Respiratory Rate 20 br/min [14-20 br/min] (11/27/16 12:07 AM) Blood Pressure 126/79 mmHg [90-140/60-90 mmHg] (11/27/16 12:07 AM) SpO2 99 % (11/27/16 12:07 AM) Problem List Condition Effective Dates Status [...] Pharmacy: [id number], 1 tabs Oral Daily Start Date: 11/12/16 [...] needed for wheezing, 0 Refill(s) Start Date: 8/19/16 Status: Ordered Results No data available for [...] combined right and left heart Tonsillectomy Tympanostomy [place] tooth 1auto-populated from documented surgical case 2auto-populated from documented surgical case 3auto-populated from documented surgical case 4auto-populated from documented surgical case 5auto-populated from documented surgical case Social History Social History Type Response Smoking Status Current every day smoker; Type: Cigarettes; Tobacco use per day: 1 Pack Assessment and Plan No data available for this section
--- OUTSIDE RECORDS SUMMARY | 2017-01-20 22:19 | XMS REPORT | Referral Summary ---
Author Author [facility] Organization [facility] Address Unknown Phone Unavailable Care Team Providers Care Telegraph Service Clerk Name Role Phone Nisha oClindres Primary Care Physician [phone] Encounter TERRELL [id number] Date(s): 12/01/16 - 12/01/16 [facility] [address] [place] [address] Discharge Diagnosis: Seizure Discharge Disposition: 01-Home or Self Care Attending Physician: Vance Lei MD Admitting Physician: Vance Lei MD Vital Signs Most recent to 1 oldest [Reference Range]: Temperature Oral 36.8 degC [35.8-37.3 degC] (12/01/16 5:29 PM) Peripheral Pulse 71 bpm Rate [60-100 bpm] (12/01/16 7:39 PM) Respiratory Rate 20 br/min [14-20 br/min] (12/01/16 7:39 PM) Blood Pressure 125/86 mmHg [90-140/60-90 mmHg] (12/01/16 7:39 PM) SpO2 98 % (12/01/16 7:39 PM) Problem List Condition Effective Dates Status [...] Daily, # 30 tabs, 6 Refill(s), Pharmacy: [id number], 1 tabs Oral Daily Start Date: 11/12/16 [...] combined right and left heart Tonsillectomy Tympanostomy [place] tooth 1auto-populated from documented surgical case 2auto-populated from documented surgical case 3auto-populated from documented surgical case 4auto-populated from documented surgical case 5auto-populated from documented surgical case Social History Social History Type Response Smoking Status Current every day smoker; Type: Cigarettes; Tobacco use per day: 1 Pack Assessment and Plan No data available for this section
--- OUTSIDE RECORDS SUMMARY | 2017-01-20 22:20 | XMS REPORT | Referral Summary ---
Author Author [facility] Organization [facility] Address Unknown Phone Unavailable Care Team Providers Care Hospital Manager Name Role Phone Imelda Martin Primary Care Physician [phone] Encounter VC Date(s): 03/26/15 - 03/26/15 [facility] [address] [facility] [place] [address] HC Final: UNSPECIFIED CHEST PAIN Discharge Disposition: Against Medical Advice Attending Physician: Milton Magaña MD Admitting Physician: Milton Magaña MD Vital Signs Most recent to 1 oldest [Reference Range]: Temperature Oral 36.8 degC [35.8-37.3 degC] (03/26/15 1:50 PM) Peripheral Pulse 109 bpm Rate [60-100 bpm] *HI* (03/26/15 1:50 PM) Respiratory Rate 22 br/min [14-20 br/min] *HI* (03/26/15 1:50 PM) Blood Pressure 141/83 mmHg [90-140/60-90 mmHg] *HI* (03/26/15 1:50 PM) SpO2 97 % (03/26/15 1:50 PM) Problem List Condition Effective Dates Status [...] pain, # 300 mL, 0 Refill(s), Pharmacy: [facility] [id number], 10 mL Oral q6hr,PRN:as needed for pain Start Date: 12/24/14 Status: Ordered Advair Diskus 250 mcg-50 mcg inhalation powder See Instructions, INHALE 1 PUFF BY INHALATION ROUTE 2 TIMES EVERY DAY IN THE MORNING AND EVENING APPROXIMATELY 12 HOURS APART, # 1 unknown unit, eRx: [facility] [id number], INHALE 1 PUFF BY INHALATION ROUTE 2 TIMES EVERY DAY IN THE MORNING AND EV... Start Date: 02/25/15 Status: Ordered albuterol 2.5 mg/3 mL (0.083%) inhalation solution 3 mL, Inhalation, q6hr (scheduled), # 60 Each, 1 Refill(s), Pharmacy: [facility] [id number], 3 mL Inhalation q6hr (scheduled) Start Date: 02/13/15 Status: Ordered Atrovent 42 mcg/inh nasal spray 2 sprays, Nasal, TID, # 2 Each, 5 Refill(s), Pharmacy: [facility] [id number] Start Date: 06/11/15 Stop Date: 06/11/16 Status: Ordered Carafate 1 g oral tablet 1 g 1 tabs, Oral, QID, Dissolve in water and drink, # 40 tabs, 0 Refill(s) Start Date: 08/31/15 Status: Ordered cetirizine 10 mg oral tablet 10 mg 1 tabs, Oral, Daily, # 30 tabs, 5 Refill(s), Pharmacy: [facility] 97066, 1 tabs Oral Daily Start Date: 09/01/15 Status: Ordered levETIRAcetam 500 mg oral tablet See Instructions, TAKE 3 TABLETS BY MOUTH TWICE DAILY, # 180 tabs, 12 Refill(s) , eRx: [facility] [id number], TAKE 3 TABLETS BY MOUTH TWICE DAILY Start Date: 02/27/15 Status: Ordered Linzess 290 mcg oral capsule 1 caps, Oral, Daily, # 30 caps, 6 Refill(s), Pharmacy: [facility] [address]87, 1 caps Oral Daily Start Date: 02/24/15 Status: Ordered loratadine 10 mg oral tablet 10 mg, Oral, Daily, # 30 tabs, 5 Refill(s), Pharmacy: [facility] [id number] , 10 mg Oral Daily Start Date: [...] Each, 1 Refill(s), Pharmacy : [facility] [address] Start Date: 06/11/15 Status: Ordered traZODone Oral, [...] Procedures Procedure Date Related Diagnosis Body Site 03/26/15 Esophagogastroduodenoscopy Balloon Dilat1 02/14/15 Examination Under Anesthesia2 02/14/15 Adenoidectomy Bilateral tubal ligation Bronchoscope Cardiac catheterization, combined right and left heart Tonsillectomy Tympanostomy [place] tooth 1auto-populated from documented surgical case 2auto-populated from documented surgical case Social History Social History Type Response Smoking Status Former smoker; Type: Cigarettes; Tobacco use per day: 1 Pack1 1quit 05/2015 Assessment and Plan No data available for this section
--- OUTSIDE RECORDS SUMMARY | 2017-01-20 22:20 | XMS REPORT | Referral Summary ---
Author Author [facility] Organization [facility] Address Unknown Phone Unavailable Care Team Providers Care Meat Sales And Storage Manager Name Role Phone Imelda Martin Primary Care Physician [phone] Encounter VC Date(s): 02/17/15 - 02/17/15 [facility] [address] [place] [address] [facility] Discharge Diagnosis: Dyspnea Discharge Diagnosis: Difficulty breathing [...] pain, # 300 mL, 0 Refill(s), Pharmacy: [facility] [address], 10 mL Oral q6hr,PRN:as needed for pain Start Date: 12/24/14 Status: Ordered Advair Diskus 250 mcg-50 mcg inhalation powder See Instructions, INHALE 1 PUFF BY INHALATION ROUTE 2 TIMES EVERY DAY IN THE MORNING AND EVENING APPROXIMATELY 12 HOURS APART, # 1 unknown unit, eRx: [facility] [id number], INHALE 1 PUFF BY INHALATION ROUTE 2 TIMES EVERY DAY IN THE MORNING AND EV... Start Date: 02/25/15 Status: Ordered albuterol 2.5 mg/3 mL (0.083%) inhalation solution 3 mL, Inhalation, q6hr (scheduled), # 60 Each, 1 Refill(s), Pharmacy: [facility] 85809, 3 mL Inhalation q6hr (scheduled) Start Date: 02/13/15 Status: Ordered Atrovent 42 mcg/inh nasal spray 2 sprays, Nasal, TID, # 2 Each, 5 Refill(s), Pharmacy: [facility] [address] Start Date: 06/11/15 Stop Date: 06/11/16 Status: Ordered Chloraseptic [place] 1.4% topical spray 5 sprays, Oral, q2hr, # 10 mL, 0 Refill(s) Start Date: 08/11/15 Stop Date: 08/11/16 Status: Ordered levETIRAcetam 500 mg oral tablet See Instructions, TAKE 3 TABLETS BY MOUTH TWICE DAILY, # 180 tabs, 12 Refill(s) , eRx: [facility] [id number], TAKE 3 TABLETS BY MOUTH TWICE DAILY Start Date: 02/27/15 Status: Ordered Linzess 290 mcg oral capsule 1 caps, Oral, Daily, # 30 caps, 6 Refill(s), Pharmacy: [facility] [address]24, 1 caps Oral Daily Start Date: 02/24/15 Status: Ordered loratadine 10 mg oral tablet 10 mg, Oral, Daily, # 30 tabs, 5 Refill(s), Pharmacy: [facility] [address]165 , 10 mg Oral Daily Start Date: [...] # 1 Each, 1 Refill(s), Pharmacy : [facility] [address] Start Date: 06/11/15 Status: Ordered traZODone Oral, [...] combined right and left heart Tonsillectomy Tympanostomy [place] tooth 1auto-populated from documented surgical case 2auto-populated [...]
--- OUTSIDE RECORDS SUMMARY | 2017-01-20 22:20 | XMS REPORT | Referral Summary ---
Author Author [facility] Organization [facility] Address Unknown Phone Unavailable Care Team Providers Care Para Operator Name Role Phone Ind[facility] Primary Care Physician Unavailable Encounter TERRELL [id number] Date(s): 01/17/16 - 01/17/[address] [facility] [address] [place], [place] [address] Discharge Diagnosis: Drug-seeking behavior Discharge Diagnosis: Left hip pain Discharge Disposition: 01-Home or Self Care Attending Physician: Presley Frias MD Admitting Physician: Presley Frias MD Vital Signs Most recent to 1 oldest [Reference Range]: Temperature Oral 36.5 degC [35.8-37.3 degC] (01/17/16 3:54 PM) Peripheral Pulse 93 bpm Rate [60-100 bpm] (01/17/16 4:50 PM) Respiratory Rate 18 br/min [14-20 br/min] (01/17/16 4:50 PM) Blood Pressure 112/83 mmHg [90-140/60-90 mmHg] (01/17/16 4:50 PM) SpO2 98 % (01/17/16 4:50 PM) Problem List Condition Effective Dates Status [...] pain, # 300 mL, 0 Refill(s), Pharmacy: [facility] [address]137, 10 mL Oral q6hr,PRN:as needed for pain Start Date: 12/24/14 Status: Ordered Advair Diskus 250 mcg-50 mcg inhalation powder See Instructions, INHALE 1 PUFF BY INHALATION ROUTE 2 TIMES EVERY DAY IN THE MORNING AND EVENING APPROXIMATELY 12 HOURS APART, # 1 unknown unit, eRx: [facility] [id number], INHALE 1 PUFF BY INHALATION ROUTE 2 [...] Daily, # 30 tabs, 5 Refill(s), Pharmacy: [facility] 11848, 1 tabs Oral Daily Start Date: [...] Daily, # 1 Each, 5 Refill(s), Pharmacy: [facility] [address]75[address] Start Date: 12/12/15 Status: Ordered ibuprofen 800 mg oral tablet 800 mg 1 tabs, Oral, TID, Pain, # 15 tabs, 0 Refill(s) Start Date: 12/07/15 Status: Ordered loratadine 10 mg oral tablet 10 mg, Oral, Daily, # 30 tabs, 5 Refill(s), Pharmacy: [facility] 49559 , 10 mg Oral Daily Start Date: [...] # 1 Each, 1 Refill(s), Pharmacy : [facility] [address] Start Date: 06/11/15 Status: Ordered Robitussin DM To Go 20 mg-200 mg/10 mL oral liquid 10 mL, Oral, q4hr, as needed for cough, # 100 mL, 0 Refill(s), Pharmacy: [facility] [address]459 Start Date: 12/12/15 Status: Ordered Vitamin D3 [...] combined right and left heart Tonsillectomy Tympanostomy [place] tooth 1auto-populated from documented surgical case 2auto-populated [...]
--- OUTSIDE RECORDS SUMMARY | 2017-01-20 22:20 | XMS REPORT | Referral Summary ---
Author Author [facility] Organization [facility] Address Unknown Phone Unavailable Care Team Providers Care Capital Campaign Fundraiser Name Role Phone Imelda Martin Primary Care Physician [phone] Encounter VC Date(s): 11/02/16 - 11/02/16 [facility] [address] [place] [address] Discharge Diagnosis: UTI (urinary tract infection) Discharge Diagnosis: Back pain Discharge Disposition: 01-Home or Self Care Attending Physician: Sheila Trujillo MD Admitting Physician: Sheila Trujillo MD Vital Signs Most recent to 1 oldest [Reference Range]: Temperature Oral 36.7 degC [35.8-37.3 degC] (11/02/16 2:00 PM) Peripheral Pulse 72 bpm Rate [60-100 bpm] (11/02/16 2:00 PM) Heart Rate Monitored 77 bpm [60-100 bpm] (11/02/16 1:20 PM) Respiratory Rate 18 br/min [14-20 br/min] (11/02/16 2:00 PM) Blood Pressure 119/82 mmHg [90-140/60-90 mmHg] (11/02/16 2:00 PM) Mean Arterial 93 mmHg Pressure, Cuff (11/02/16 1:20 PM) SpO2 99 % (11/02/16 2:00 PM) Problem List Condition Effective Dates [...] QIDACHS, # 280 mL, 0 Refill(s), Pharmacy: [facility], 10 mL Oral QIDACHS [...] # 60 tabs, 0 Refill(s), Pharmacy: [facility] [address], 1 tabs Oral BID Start Date: 07/12/16 [...] Range]: Sodium Venous 141 mEq/L [136-144 mEq/L] (11/02/16 12:25 PM) Potassium Venous 3.9 mEq/L 1 [3.6-5.1 mEq/L] (11/02/16 12:25 PM) Calcium Ionized 1.17 mmol/L Venous [1.19-1.41 *LOW* mmol/L] (11/02/16 12:25 PM) Total CO2 Venous 20 mEq/L [25-29 mEq/L] *LOW* (11/02/16 12:25 PM) HGB Venous NPT 10.9 gm/dL [12.0-16.0 gm/dL] *LOW* (11/02/16 12:25 PM) HCT Venous 32.0 % [37.0-47.0 %] *LOW* (11/02/16 12:25 PM) Glucose Venous 86 mg/dL [70-100 mg/dL] (11/02/16 12:25 PM) BUN Venous [4-20] 3 *LOW* (11/02/16 12:25 PM) Creatinine Venous 0.6 mg/dL [0.4-1.0 mg/dL] (11/02/16 12:25 PM) Venous CL [99-109 109 mEq/L mEq/L] (11/02/16 12:25 PM) Anion Gap, Darron 12 [3-20] (11/02/16 12:25 PM) U Beta hCG Ql Neg (11/02/16 12:35 PM) 1Result Comment: This test was performed on a whole blood specimen. The presence or absence of hemolysis cannot be assessed. Hemolysis can falsely elevate potassium levels. Normals are for venous specimens only. Urinalysis Most recent to 1 oldest [Reference Range]: UA Color Yellow (11/02/16 12:24 PM) UA Appear Sl Cloudy (11/02/16 12:24 PM) UA pH [5.0-8.0] 8.0 (11/02/16 12:24 PM) UA Leuk Est Pos 3+ [Negative] *ABN* (11/02/16 12:24 PM) UA Nitrite Negative [Negative] (11/02/16 12:24 PM) UA Protein Negative [Negative] (11/02/16 12:24 PM) UA Glucose Negative [Negative] (11/02/16 12:24 PM) UA Ketones Negative [Negative] (11/02/16 12:24 PM) UA Urobilinogen Negative [<1.0] (11/02/16 12:24 PM) UA Bili [Negative] Negative (11/02/16 12:24 PM) UA Blood [Negative] Negative (11/02/16 12:24 PM) UA Spec Grav 1.010 [1.003-1.030] (11/02/16 12:24 PM) Type Clean Catch (11/02/16 12:24 PM) UA WBC [0-4 /HPF] >50 /HPF *ABN* (11/02/16 12:24 PM) UA RBC [0-2] 2-5 (11/02/16 12:24 PM) Epithelial Cells 2-5 (11/02/16 12:24 PM) UA Bacteria Rare (11/02/16 12:24 PM) Immunizations Given and Recorded Vaccine Date Status Refusal Reason pneumococcal 23-polyvalent vaccine 11/18/14 Given Procedures Procedure Date Related Diagnosis Body Site Esophagogastroduodenoscopy - SN1 06/04/16 Esophagogastroduodenoscopy Foreign Body 01/06/16 Removal2 Procedure with Anesthesia3 01/06/16 Esophagogastroduodenoscopy Balloon Dilat4 02/14/15 Examination Under Anesthesia5 02/14/15 Adenoidectomy Bilateral tubal ligation Bronchoscope Cardiac catheterization, combined right and left heart Tonsillectomy Tympanostomy [place] tooth 1auto-populated from documented surgical case 2auto-populated from documented surgical case 3auto-populated from documented surgical case 4auto-populated from documented surgical case 5auto-populated from documented surgical case Social History Social History Type Response Smoking Status Never smoker Assessment and Plan No data available for this section
--- OUTSIDE RECORDS SUMMARY | 2017-01-20 22:20 | XMS REPORT | Continuity of Care Document ---
Author Author [facility] Organization [facility] Address Unknown Phone Unavailable Care Team Providers Care Air Sampler Name Role Phone OTHER Primary Care Physician [phone] Insurance Providers Guarantor [employer] Address [address] [place] [address] Email DENIED/NO PORTAL Payer [facility] Community Plan Policy Number [id number] Subscriber's Name [employer] Karissa Relationship 18 Self Effective Date 16 Expiration Date 16 Advance Directives Directive Response Recorded Date/Time Advanced Directives Type None 03/22/16 7:50pm Chief Complaint and Reason for Visit Chief Complaint Seizure Reason for Visit [id number] Seizure Problems Active Problems Medical Problem Onset Date Status Chronic jaw pain Unknown Chronic Chronic knee instability Unknown Chronic Costochondritis Unknown Acute Malaise and fatigue Unknown Acute Mental impairment Unknown Chronic Seizure Unknown Acute Viral syndrome Unknown Acute Past Problems Medical Problem Onset Date Abdominal pain Unknown Drug-seeking behavior Unknown Marijuana abuse Unknown Medications Current Home Medications Medication Dose Units Route Directions Days Qty Instructions Start Date Acetaminophen 500 Mg Tablet 500 Mg Oral Every 4 Hours as needed for Pain 03/22/16 Fluticasone/Salmeterol (Advair 500-50 Diskus) 1 Disk W/Dev Disk.w.dev 1 Puff Oral Inhalation Resp.tx Twice A Day 02/26/16 Ibuprofen 800 Mg Tablet 800 Mg Oral Every 6 Hours as needed for Pain 03/22/16 Montelukast Sodium 10 Mg Tablet 10 Mg Oral Daily 02/26/16 Olanzapine 2.5 Mg Tablet 2.5 Mg Oral Bedtime 02/26/16 Ondansetron (Zofran Odt) 4 Mg Tab.rapdis 4 Mg Oral Q8h @ 0100/0900/1700 as needed for Nausea 03/22/16 Paliperidone (Invega) 3 Mg Tab.er.24 3 Mg Oral Daily 02/26/16 Prochlorperazine Maleate 10 Mg Tablet 10 Mg Oral Four Times Daily as needed for Prn Orders 03/22/16 Sucralfate 1 Gm Tablet 1 G Oral Four Times Daily as needed for Prn Orders 02/26/16 Past Home Medications Medication Directions Ordered Status [id number] M3 (Levetiracetam) 500 Mg Tablet, 500 Mg Oral Twice A Day Discontinued Reynold/Poly/Dexameth Ophth Oint 3 , 04/29/15 Discontinued Sulfamethoxazo1 Each (Sulfamethoxazole-Tmp Ds Tablet) 1 Each Tablet, 1 Tab Oral Twice A Day 04/29/15 Discontinued Social History Social History Problem Response Recorded Date/Time Onset Date Status Hx Substance Use No 03/22/2016 8:20pm Not Applicable Not Applicable Hx Alcohol Use Y OCC 03/22/2016 8:20pm Not Applicable Not Applicable Tobacco Usage none 04/12/2015 1:48pm Not Applicable Not Applicable Query Response Start Date Stop Date Smoking Status Former smoker Hospital Discharge Instructions No hospital discharge instructions. Plan of Care Discharge Date 03/22/16 10:52pm Disposition 01 DISCHARGED HOME, SELF-CARE Condition at Discharge Stable Instructions/Education Provided Seizure Disorder -- Adult Prescriptions See Medication Section Referrals FOLLOW UP WITH YOUR DOCTOR Address: CALL YOUR NEUROLOGIST TOMORROW Note: OTHER Note: Additional Instructions/Education FOLLOW UP WITH YOUR NEUROLOGIST TOMORROW. PLEASE CALL THE OFFICE AND LET THEM DOCTOR KNOW YOU WERE SEEN HERE TODAY AND HAD A REPEAT SEIZURE. Functional Status No functional status results. Allergies, Adverse Reactions, Alerts Allergen Type Severity Reaction Status Last Updated Ciprofloxacin Adverse Reaction Unknown ITCHING Active 03/22/16 Omeprazole Allergy Unknown RASH Active 03/22/16 Immunizations Query Response on File Recorded Date/Time Hx Influenza Vaccination Y fall 201304/28/15 11:25pm Hx Pneumococcal Vaccination Y fall 201204/28/15 11:25pm Hx Influenza Vaccination Y fall 201304/28/15 11:25pm Hx Tetanus Diptheria Y APRIL 2014 04/28/15 11:25pm Influenza Vaccine Hx FALL 2015 06/06/16 8:20pm Vital Signs Acute Vital Signs Vital Response Date/Time Temperature (Fahrenheit) 97.9 deg F (96.8 - 99.1) 03/22/2016 10:50pm Temperature (Calculated Celsius) 36.96885 degrees C (36.0 - 37.3) 03/22/2016 10:50pm Pulse Rate (adult) 70 bpm (60 - 100) 03/22/2016 10:50pm Respiratory Rate 17 breaths/min (10 - 20) 03/22/2016 10:50pm O2 Sat by Pulse Oximetry 98 % (90 - 100) 03/22/2016 10:50pm Blood Pressure 101/56 mm Hg 03/22/2016 10:50pm Height (Feet) 5 feet 03/22/2016 7:50pm Height (Inches) 1.00 inches 03/22/2016 7:50pm Weight (Kilograms) 106.000 kg 03/22/2016 7:50pm Body Mass Index (BMI) 44.0 03/22/2016 7:50pm Results Laboratory Results Test Name Result Units Flags Reference Collection Date/Time Result Date/ Time Comments Lipase 41 U/L 23-300 02/26/2016 12:51pm 02/26/2016 1:15pm Urine Collection Type CLEANCATCH-MIDSTREAM 02/26/2016 11:02/25 12:16pm Urine Color YELLOW YELLOW 02/26/2016 11:02/26/2016 12:16pm Urine Turbidity CLEAR CLEAR 02/26/2016 11:02/26/2016 12:16pm Urine Specific Taylor <=1.005 L 1.015-1.025 02/26/2016 11:2015 12:16pm Urine pH 6.5 5.0-8.0 02/26/2016 11:02/26/2016 12:16pm Urine Leukocyte Esterase TRACE A NEGATIVE 02/26/2016 11:2015 12:16pm Urine Nitrite NEGATIVE NEGATIVE 02/26/2016 11:02/26/2016 12: 16pm Urine Protein NEGATIVE NEGATIVE 02/26/2016 11:02/26/2016 12: 16pm Urine Glucose (UA) NEGATIVE NEGATIVE 02/26/2016 11:02/26/2016 12 :16pm Urine Ketones NEGATIVE NEGATIVE 02/26/2016 11:02/26/2016 12: 16pm Urine Urobilinogen 0.2 EU/DL NORMAL 02/26/2016 11:02/26/2016 12: 16pm Urine Bilirubin NEGATIVE NEGATIVE 02/26/2016 11:02/26/2016 12: 16pm Urine Blood TRACE-INTACT A NEGATIVE 02/26/2016 11:02/26/2016 12: 16pm Urinalysis Comment MICROSCOPIC NOT IND. 02/26/2016 11:2015 12:16pm White Blood Count 7.4 T/MM3 4.5-11.0 03/22/2016 8:03/22/2016 8: 24pm Red Blood Count 4.51 M/MM3 4.00-5.20 03/22/2016 8:03/22/2016 8: 24pm Hemoglobin 10.9 GM/DL L 12-16 03/22/2016 8:03/22/2016 8:24pm Hematocrit 36.0 % 36-46 03/22/2016 8:03/22/2016 8:24pm Mean Corpuscular Volume 79.8 UM3 L 80-100 03/22/2016 8:03/22/2016 8 :24pm Mean Corpuscular Hemoglobin 24.2 UUG L 26-34 03/22/2016 8:2015 8:24pm Mean Corpuscular Hemoglobin Concent 30.3 GM/DL L 31-37 03/22/2016 8:03/22/2016 8:24pm RDW Standard Deviation 51.9 FL H 36.9-50.2 03/22/2016 8:03/22/2016 8:24pm Platelet Count 227 T/MM3 130-400 03/22/2016 8:03/22/2016 8:24pm Mean Platelet Volume 9.9 UM3 9.4-12.4 03/22/2016 8:03/22/2016 8: 24pm Neutrophils (%) (Auto) 59.2 % 33-66 03/22/2016 8:03/22/2016 8: 24pm Lymphocytes (%) (Auto) 29.1 % 23-45 03/22/2016 8:03/22/2016 8: 24pm Monocytes (%) (Auto) 10.4 % H 0-9.0 03/22/2016 8:03/22/2016 8:24pm Eosinophils (%) (Auto) 1.1 % 0-4 03/22/2016 8:03/22/2016 8:24pm Basophils (%) (Auto) 0.1 % 0-2 03/22/2016 8:03/22/2016 8:24pm Immature Granulocyte % (Auto) 0.1 % 0.0-0.5 03/22/2016 8:2015 8:24pm Absolute Neutrophils (auto) 4.4 T/MM3 1.8-7.7 03/22/2016 8:2015 8:24pm Absolute Lymphocytes (auto) 2.2 T/MM3 1-4.8 03/22/2016 8:2015 8:24pm Absolute Monocytes (auto) 0.8 T/MM3 0-0.8 03/22/2016 8:03/22/2016 8:24pm Absolute Eosinophils (auto) 0.1 T/MM3 0-0.5 03/22/2016 8:2015 8:24pm Absolute Basophils (auto) 0.0 T/MM3 0-0.2 03/22/2016 8:03/22/2016 8:24pm Absolute Immature Granulocyte (auto 0.01 T/MM3 0.00-0.03 03/22/2016 8: 03/22/2016 8:24pm Icterus Index < 2 0-7 03/22/2016 8:03/22/2016 8:39pm Chemistry Specimen Hemolysis < 15 0-25 03/22/2016 8:03/22/2016 8 :39pm 0-25: Specimen Exhibited No Hemolysis. Turbidity < 20 0-20 03/22/2016 8:03/22/2016 8:39pm Sodium Level 139 MEQ/L 134-144 03/22/2016 8:03/22/2016 8:39pm Potassium Level 4.2 MEQ/L 3.6-5 03/22/2016 8:03/22/2016 8:39pm Chloride Level 108 MEQ/L H 98-107 03/22/2016 8:pm 03/22/2016 8:39pm Carbon Dioxide Level 27 MEQ/L 22-30 03/22/2016 8:pm 03/22/2016 8: 39pm Anion Gap 4 MEQ/L L 5-15 03/22/2016 8:03/22/2016 8:39pm Blood Urea Nitrogen 8.0 MG/DL 7-17 03/22/2016 8:03/22/2016 8:39pm Creatinine 0.6 MG/DL L 0.7-1.2 03/22/2016 8:03/22/2016 8:39pm BUN/Creatinine Ratio 13 RATIO 6-03/22/2016 8:03/22/2016 8:39pm Glomerular Filtration Rate Calc 121 03/22/2016 8:03/22/2016 8: 39pm Glucose Level 93 MG/DL 65-110 03/22/2016 8:03/22/2016 8:39pm Calculated Osmolality 266 MOSM/KG 261-280 03/22/2016 8:03/22/2016 8:39pm Calcium Level 9.1 MG/DL 8.4-10.2 03/22/2016 8:03/22/2016 8:39pm Total Bilirubin 0.50 MG/DL 0.20-1.30 03/22/2016 8:03/22/2016 8: 39pm Alkaline Phosphatase 106 U/L 38-126 03/22/2016 8:03/22/2016 8: 39pm Total Protein 6.6 G/DL 6.3-8.2 03/22/2016 8:03/22/2016 8:39pm Albumin 3.5 G/DL 3.5-5.0 03/22/2016 8:03/22/2016 8:39pm Globulin 3.1 G/DL 2.4-3.6 03/22/2016 8:03/22/2016 8:39pm Albumin/Globulin Ratio 1.1 RATIO 1.1-2.2 03/22/2016 8:03/22/2016 8 :39pm Aspartate Amino Transf (AST/SGOT) 17 U/L 14-36 03/22/2016 8:19pm 2015 8:39pm Alanine Aminotransferase (ALT/SGPT) 15 U/L 9-52 03/22/2016 8:19pm 03/22 8:39pm Prolactin 31.1 NG/ML 03/22/2016 8:19pm 03/22/2016 8:55pm Normal Female (Non-): 3.0-18.6 ng/ml; Males: 3.7-17.9 ng/ml Procedures Procedure Status Date Provider(s) EMERGENCY DEPT VISIT Completed 12/26/15 ECHO EXAM OF ABDOMEN Completed 02/26/16 COMPREHEN METABOLIC PANEL Completed 02/26/16 URINALYSIS AUTO W/O SCOPE Completed 02/26/16 URINE TEST Completed 02/26/16 ASSAY OF LIPASE Completed 02/26/16 COMPLETE CBC W/AUTO DIFF WBC Completed 02/26/16 THER/PROPH/DIAG INJ IV PUSH Completed 02/26/16 TX/PRO/DX INJ NEW DRUG ADDON Completed 02/26/16 TX/PRO/DX INJ SAME DRUG IRONWORKER APPRENTICE Completed 02/26/16 EMERGENCY DEPT VISIT Completed 02/26/16 211230"INJECTION, ONDANSETRON HYDROCHLORIDE, PER 1 MG" Completed 02/26/16 THER/PROPH/DIAG INJ SC/IM Completed 03/13/16 THER/PROPH/DIAG INJ SC/IM Completed 03/13/16 EMERGENCY DEPT VISIT Completed 03/13/16 597673"INJECTION, PROCHLORPERAZINE, UP TO 10 MG" Completed 03/13/16 290762"INJECTION, KETOROLAC TROMETHAMINE, PER 15 MG" Completed 03/13/16 Encounters Encounter Location Arrival/Admit Date Discharge/Depart Date Attending Provider Departed Emergency Room [facility] 03/22/16 7:49pm 03/22/16 10: 52pm ELE FITCH MD Departed Emergency Room [facility] 03/13/16 10:12pm 03/13/16 10: 55pm INO GARRISON MD Departed Emergency Room [facility] 02/26/16 10:45am 02/26/16 2: 18pm JODI RICHARDSON MD Departed Emergency Room [facility] 12/26/15 9:55pm 12/26/15 11: 05pm INO GARRISON MD Recent Diagnosis
--- OUTSIDE RECORDS SUMMARY | 2017-01-20 22:20 | XMS REPORT | Referral Summary ---
Author Author [facility] Organization [facility] Address Unknown Phone Unavailable Care Team Providers Care Air Hammer Stripper Name Role Phone Imelda Martin Primary Care Physician [phone] Encounter VC Date(s): 04/24/15 - 04/24/15 [facility] [address] [place] [address] Final: Other acute postoperative pain Final: ABDOMINAL PAIN, OTHER SPECIFIED SITE; MULTIPLE SITES Final: AORTIC VALVE DISORDERS Final: TOBACCO USE DISORDER Discharge Diagnosis: Right groin pain Discharge Diagnosis: Aortic stenosis Discharge Diagnosis: Post-operative pain Discharge Disposition: -Home or Self Care Attending Physician: Chris Barone MD Admitting Physician: Chris Barone MD Referring Physician: Self Referred, X Vital Signs Most recent to 1 oldest [Reference Range]: Temperature Oral 36.8 degC [35.8-37.3 degC] (04/24/15 6:44 PM) Peripheral Pulse 96 bpm Rate [60-100 bpm] (04/24/15 6:44 PM) Respiratory Rate 18 br/min [14-20 br/min] (04/24/15 6:44 PM) Blood Pressure 122/75 mmHg [90-140/60-90 mmHg] (04/24/15 6:44 PM) SpO2 98 % (04/24/15 6:44 PM) Problem List Condition Effective Dates Status [...] pain, # 300 mL, 0 Refill(s), Pharmacy: [facility] [id number], 10 mL Oral q6hr,PRN:as needed for pain Start Date: 12/24/14 Status: Ordered Advair Diskus 250 mcg-50 mcg inhalation powder See Instructions, INHALE 1 PUFF BY INHALATION ROUTE 2 TIMES EVERY DAY IN THE MORNING AND EVENING APPROXIMATELY 12 HOURS APART, # 1 unknown unit, eRx: [facility] [id number], INHALE 1 PUFF BY INHALATION ROUTE 2 TIMES EVERY DAY IN THE MORNING AND EV... Start Date: 02/25/15 Status: Ordered Atrovent 42 mcg/inh nasal spray 2 sprays, Nasal, TID, # 2 Each, 5 Refill(s), Pharmacy: [facility] [id number] Start Date: 06/11/15 Stop Date: 06/11/16 Status: Ordered Carafate 1 g oral tablet 1 g 1 tabs, Oral, QID, Dissolve in water and drink, # 40 tabs, 0 Refill(s) Start Date: 08/31/15 Status: Ordered cetirizine 10 mg oral tablet 10 mg 1 tabs, Oral, Daily, # 30 tabs, 5 Refill(s), Pharmacy: [facility] [id number], 1 tabs Oral Daily Start Date: 09/01/15 Status: Ordered Linzess 290 mcg oral capsule 1 caps, Oral, Daily, # 30 caps, 6 Refill(s), Pharmacy: [facility] [id number], 1 caps Oral Daily Start Date: 02/24/15 Status: Ordered loratadine 10 mg oral tablet 10 mg, Oral, Daily, # 30 tabs, 5 Refill(s), Pharmacy: [facility] [id number] , 10 mg Oral Daily Start Date: [...] Each, 1 Refill(s), Pharmacy : [facility] [address] Start Date: 06/11/15 Status: Ordered traZODone Oral, [...] combined right and left heart Tonsillectomy Tympanostomy [place] tooth 1auto-populated from documented surgical case 2auto-populated from documented surgical case Social History Social History Type Response Smoking Status Former smoker; Type: Cigarettes; Tobacco use per day: 1 Pack1 1quit 05/2015 Assessment and Plan No data available for this section
--- OUTSIDE RECORDS SUMMARY | 2017-01-20 22:20 | XMS REPORT | Referral Summary ---
Author Author [facility] Organization [facility] Address Unknown Phone Unavailable Care Team Providers Care Flash Welder Name Role Phone Imelda Martin Primary Care Physician [phone] Encounter Date(s): 02/24/15 - 02/24/15 [facility] [address] [place] [id number] Discharge Diagnosis: Hernia, hiatal Discharge Diagnosis: Irritable bowel syndrome (IBS) Discharge Disposition: 01-Home or Self Care Attending Physician: Carly Crump APRN Admitting Physician: Carly Crump APRN Vital Signs Most recent to 1 oldest [Reference Range]: Peripheral Pulse 96 bpm Rate [60-100 bpm] (02/24/15 10:08 AM) Blood Pressure 110/80 mmHg [90-140/60-90 mmHg] (02/24/15 10:08 AM) Problem List Condition Effective Dates Status [...] pain, # 300 mL, 0 Refill(s), Pharmacy: [facility] [id number], 10 mL Oral q6hr,PRN:as needed for pain Start Date: 12/24/14 Status: Ordered Advair Diskus 250 mcg-50 mcg inhalation powder See Instructions, INHALE 1 PUFF BY INHALATION ROUTE 2 TIMES EVERY DAY IN THE MORNING AND EVENING APPROXIMATELY 12 HOURS APART, # 1 unknown unit, eRx: [facility] 53800, INHALE 1 PUFF BY INHALATION ROUTE 2 TIMES EVERY DAY IN THE MORNING AND EV... Start Date: 02/25/15 Status: Ordered albuterol 2.5 mg/3 mL (0.083%) inhalation solution 3 mL, Inhalation, q6hr (scheduled), # 60 Each, 1 Refill(s), Pharmacy: [facility] 05887, 3 mL Inhalation q6hr (scheduled) Start Date: 02/13/15 Status: Ordered Atrovent 42 mcg/inh nasal spray 2 sprays, Nasal, TID, # 2 Each, 5 Refill(s), Pharmacy: [facility] [address]15 Start Date: 06/11/15 Stop Date: 06/11/16 Status: Ordered Carafate 1 g oral tablet 1 g 1 tabs, Oral, QID, Dissolve in water and drink, # 40 tabs, 0 Refill(s) Start Date: 08/31/15 Status: Ordered cetirizine 10 mg oral tablet 10 mg 1 tabs, Oral, Daily, # 30 tabs, 5 Refill(s), Pharmacy: [facility] [address]99, 1 tabs Oral Daily Start Date: 09/01/15 Status: Ordered levETIRAcetam 500 mg oral tablet See Instructions, TAKE 3 TABLETS BY MOUTH TWICE DAILY, # 180 tabs, 12 Refill(s) , eRx: [facility] [id number], TAKE 3 TABLETS BY MOUTH TWICE DAILY Start Date: 02/27/15 Status: Ordered Linzess 290 mcg oral capsule 1 caps, Oral, Daily, # 30 caps, 6 Refill(s), Pharmacy: [facility] [address], 1 caps Oral Daily Start Date: 02/24/15 Status: Ordered loratadine 10 mg oral tablet 10 mg, Oral, Daily, # 30 tabs, 5 Refill(s), [facility] , 10 mg Oral Daily Start Date: [...] # 1 Each, 1 Refill(s), [facility] Start Date: 06/11/15 Status: Ordered traZODone Oral, [...] Visit Note Author: Carly Crump APRN Date: 02/24/15 Assessment/Plan Hernia, hiatal We discussed that the nature of hiatal hernia is painful and symptomatic at times. She is to eat small frequent meals (examples provided) and no food within 3 hours of laying down at night. She is to become NPO if she vomits and wait 30-45 minutes. Start with 1 oz of fluids every 15-30 minutes. No solids for 12-24 hours. Adjust per her symptoms. Take medications as directed. Call this clinic for triage and recommendations. NO FURTHER USE OF THE EMERGENCY ROOM. She has received a letter notifying her she will be discharged as a patient if she further abuses ER. Ordered: Office Visit Level 4 Est 49730 Irritable bowel syndrome (IBS) We can trial Linzess for the abdominal pain. SHE MAY EXPERIENCE LOOSE STOOL. She should try to continue at least one month to measure response. There may never be a way to completely rid her of the abdominal pain but we can try to improve. She will follow with [facility] this month. Will start low dose Zyprexa and see if that can improve mood and therefore improve her abdominal pain and symptoms. Follow in one month. Ordered: Office Visit Level 4 Est 15629 Orders: linaclotide, 1 caps, Oral, Daily, # 30 caps, 6 Refill(s), Pharmacy: [facility] [address]01, 1 caps Oral Daily OLANZapine, 1 tabs, Oral, Bedtime (once a day), # 30 tabs, 6 Refill(s), Pharmacy: [facility] [address]89, 1 tabs Oral Bedtime (once a day)
--- OUTSIDE RECORDS SUMMARY | 2017-01-20 22:20 | XMS REPORT | Referral Summary ---
Author Organization Unknown Address Unknown Phone Unavailable Care Team Providers Care Talent Assistant Name Role Phone Pardeep Poole Primary Care Physician [phone] Encounter VC Date(s): 10/31/14 - 10/31/14 [facility] [address] [place] [id number] Discharge Diagnosis: RUQ pain Discharge Diagnosis: RUQ pain Discharge Disposition: Home or Self Care Attending Physician: Kermit Rankin Admitting Physician: Kermit Rankin Vital Signs Most recent to 1 oldest [Reference Range]: Temperature Oral 36.4 degC [35.8-37.3 degC] (10/31/14 8:46 AM) Peripheral Pulse 68 bpm Rate [60-100 bpm] (10/31/14 8:46 AM) Respiratory Rate 20 br/min [14-20 br/min] (10/31/14 8:46 AM) Blood Pressure 110/80 mmHg [90-140/60-90 mmHg] (10/31/14 8:46 AM) Problem List Condition Effective Dates Status [...] QIDACHS, # 1,200 mL, 6 Refill(s), Pharmacy: [facility] [id number], 10 mL Oral QIDACHS Start Date: 10/07/14 Status: Ordered cyclobenzaprine 10 mg oral tablet 1 tabs, Oral, BID, as needed for spasm, # 30 tabs, 1 Refill(s), Pharmacy: [facility] 31096, 1 tabs Oral BID,PRN:as needed for spasm Start Date: 10/16/14 Status: Ordered Flonase 50 mcg/inh nasal spray 1 sprays, Nasal, BID, # 16 g, 5 Refill(s), Pharmacy: [facility] [address]41 Start Date: 09/30/14 Status: Ordered FLUoxetine See [...] Daily, # 30 caps, 5 Refill(s), Pharmacy: [facility] [address], 1 caps Oral Daily Start Date: 07/19/14 Status: Ordered ProAir HFA 90 mcg/inh inhalation aerosol See Instructions, 2-4 puffs every 4-6 hrs prn., # 1 Each, 1 Refill(s), Pharmacy : [facility] [address] Special Instructions: 2-4 puffs every 4-6 hrs [...] Adenoidectomy Bilateral tubal ligation Bronchoscope Tonsillectomy Tympanostomy [place] tooth Social History Social History Type Response Smoking Status Former smoker Assessment and Plan Extracted from: Title: Office Visit Note Author: Kermit Rankin Date: 10/31/14 Assessment/Plan RUQ pain, RUQ pain I let her know that with recent CT scan and neg. GB sono in does not make sense to repeat these now. I do believe that we should check a HIDA scan to see if she has any biliary dyskinesia. Continue taking Nexium daily. Avoid alcohol, tobacco products, caffeine, fried fatty foods, spicy foods, NSAIDS and stay in the upright position for at least 2-3 hours after eating, snacking, or drinking anything other than water. Notify if any black, dark, tarry, or bloody stools develop. Take all medication as advised. She was advised that if the ER found her to have a UTI last night she needs to start her medication today and be drinkiing plenty fluids. Ordered: Office Visit Level 4 Est 23213 Orders: [place] Hepatobiliary Duct System Imaging
--- OUTSIDE RECORDS SUMMARY | 2017-01-20 22:20 | XMS REPORT | Referral Summary ---
Author Author [facility] Organization [facility] Address Unknown Phone Unavailable Care Team Providers Care Facilities Plant Engineer Name Role Phone Imelda Martin Primary Care Physician [phone] Encounter VC TERRE[facility] [id number] Date(s): 10/12/16 - 10/12/16 [facility] [address] [place] [address] Discharge Diagnosis: Acute lower urinary tract infection Discharge Disposition: 01-Home or Self Care Attending Physician: Vance Lei MD Admitting Physician: Vance Lei MD Vital Signs Most recent to 1 oldest [Reference Range]: Temperature Oral 36.4 degC [35.8-37.3 degC] (10/12/16 7:57 PM) Peripheral Pulse 73 bpm Rate [60-100 bpm] (10/12/16 7:57 PM) Respiratory Rate 22 br/min [14-20 br/min] *HI* (10/12/16 7:57 PM) Blood Pressure 132/82 mmHg [90-140/60-90 mmHg] (10/12/16 7:57 PM) SpO2 99 % (10/12/16 7:57 PM) Problem List Condition Effective Dates Status [...] tabs, 0 Refill(s), Pharmacy: [facility] [id number], 1 tabs Oral BID Start Date: 07/12/16 [...] [Reference Range]: U Beta hCG Ql Neg (10/12/16 8:53 PM) Urinalysis Most recent to 1 oldest [Reference Range]: UA Color Yellow (10/12/16 9:00 PM) UA Appear Sl Cloudy (10/12/16 9:00 PM) UA pH [5.0-8.0] 7.0 (10/12/16 9:00 PM) UA Leuk Est Trace [Negative] *ABN* (10/12/16 9:00 PM) UA Nitrite Negative [Negative] (10/12/16 9:00 PM) UA Protein Negative [Negative] (10/12/16 9:00 PM) UA Glucose Negative [Negative] (10/12/16 9:00 PM) UA Ketones Trace [Negative] *ABN* (10/12/16 9:00 PM) UA Urobilinogen Negative [<1.0] (10/12/16 9:00 PM) UA Bili [Negative] Negative (10/12/16 9:00 PM) UA Blood [Negative] Negative (10/12/16 9:00 PM) UA Spec Grav 1.020 [1.003-1.030] (10/12/16 9:00 PM) Type Clean Catch (10/12/16 9:00 PM) UA WBC [0-4] 10-20 *ABN* (10/12/16 9:00 PM) UA RBC [0-2] 0-2 (10/12/16 9:00 PM) Epithelial Cells 5-10 (10/12/16 9:00 PM) UA Bacteria Moderate *ABN* (10/12/16 9:00 PM) UA Mucous Present (10/12/16 9:00 PM) Immunizations Given and Recorded Vaccine Date Status Refusal Reason pneumococcal 23-polyvalent vaccine 11/18/14 Given Procedures Procedure Date Related Diagnosis Body Site Esophagogastroduodenoscopy - SN1 06/04/16 Esophagogastroduodenoscopy Foreign Body 01/06/16 Removal2 Procedure with Anesthesia3 01/06/16 Esophagogastroduodenoscopy Balloon Dilat4 02/14/15 Examination Under Anesthesia5 02/14/15 Adenoidectomy Bilateral tubal ligation Bronchoscope Cardiac catheterization, combined right and left heart Tonsillectomy Tympanostomy [place] tooth 1auto-populated from documented surgical case 2auto-populated from documented surgical case 3auto-populated from documented surgical case 4auto-populated from documented surgical case 5auto-populated from documented surgical case Social History Social History Type Response Smoking Status Never smoker Assessment and Plan No data available for this section
--- NOTE | 2017-01-20 22:34 | NUR ---
PROVIDER DR LEBRON IN ROOM W/ PT.
--- NOTE | 2017-01-20 22:37 | ERPDOC ---
Departure Disposition Decision Date: Jan 20, 2017 Disposition Decision Time: 23:40 Disposition: 01 DISCHARGED HOME, SELF-CARE Impression Impression Impression: Primary Impression: Hemorrhoid Additional Impression: Chronic pain Severity: Moderate Condition: Stable Seen By: Physician only Referrals: JAE GRIFFITH MD (PCP) Patient Instructions: Rectal Bleeding (ED) Problems/Meds/Labs Reviewed?: Yes Medications reviewed and manag: Yes Additional Instructions: Gabapentin 100mg twice daily for chronic pain. Hydrocortisone 0.5% cream for hemorrhoids. Follow up care ordered?: Yes Mental Status: Alert Scripts Gabapentin (Gabapentin) 100 Mg Capsule 1 CAP PO BID for 30 Days, #60 CAP Prov: SELMA ROBERTS MD 01/20/17 HPI - Abdominal Pain General Chief Complaint: Abdominal Pain Stated Complaint: BLOOD IN STOOLS,STOMACH PAIN Time Seen by Provider: 22:34 HPI - Abdominal Pain Initial Comments 26-year-old female presents for rectal bleeding. On review of chart she has had many many visits for this, and asks for pain medication. In fact one visit she went straight from [place], to our ER. I'm beginning discussion, explained this to her and let her know that we would be unable to write her any narcotics, but that I was happy to workup the rectal bleeding if she wanted me to. She does want that worked up, states that she often bleeds when she has a bowel movement , wiped clots afterwards. She does not leak blood into her underwear in between bowel movements. She states she's felt a little lightheaded, and thinks that's from the bleeding. She did have a colonoscopy previously and was told that she had constipation. She is not certain exactly when the colonoscopy was performed. 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 Allergies: Coded Allergies: omeprazole (Verified Allergy, Unknown, RASH, 01/20/17) ciprofloxacin (Verified Adverse Reaction, Unknown, ITCHING, 01/20/17) Past History Past Medical History Respiratory: asthma GI: GERD Neurological: seizures Hematologic: anemia Psychological: anxiety, depression Surgical History General: EGD, tonsils Cardiac: cardiac cath Reproductive/: tubal ligation Vaccines Hx Influenza Vaccination: Yes (FALL 2013) Hx Pneumococcal Vaccination: Yes (FALL 2012) Hx Tetanus Diptheria: Yes (APRIL 2014) Social History Substance Use Type: marijuana Marital Status: In a relationship Sexuality: male partner Current Occupational Status: unemployed Record Review Pertinent history updated: Yes Review of Systems GI Upper Abdomen: see HPI Lower Abdomen: see HPI Musculoskeletal General: see HPI All other Systems All Other Systems: Reviewed and Negative Physical Exam General General Nourishment: well nourished, well developed Vitals and Pain First Documented Vital Signs Date Time Temp Pulse Resp B/P Pulse Ox O2 Delivery O2 Flow Rate FiO2 01/20/17 22:10 98.2 80 20 127/85 99 Room Air Weight: Kilograms: 92.900 Height (feet): 5 Height (inches): 1.00 Triage Pain Scale: Normal Exams: Head: Normocephalic w/o trauma Chest/Resp: Clear all zelaya, with good airflow, and symmetry bilaterally CV: Regular rate and rhythm, without murmur or gallop, Pulses 2+ all extremities, capillary refill, <2 seconds all ext., no pedal edema noted Abdomen: Bowel sounds positive, soft, non-tender, non-distended, no hepatosplenomegaly, masses or bruits noted Neurologic: Patient is alert, and oriented, cranial nerves, motor/sensory/ cerebellar, exams w/o gross deficits, to observation Psychiatric: Patient exhibits, appropriate attention, emotion and affect Integumentary (brief) Comments Multiple bites/scabs on both arms and face. Patient states that she has had some bedbugs, and that these are from that. Differential Diagnoses Considering: Other (Suzi's, fissure, unknown bleed from rectum, narcotic dependency) Progress Results/Orders Orders Procedure Category Date Status Time Cbc W/Auto LAB 01/20/17 Complete Diff-Reflex Manual 22:38 Cmp - Comprehensive LAB 01/20/17 Complete Metabolic 22:38 Lorazepam (Ativan) PHA 01/20/17 Complete 23:15 Ketorolac (Toradol) PHA 01/20/17 Transmitted 23:45 Lab Results Laboratory Tests Test 01/20/17 22:56 White Blood Count 6.4T/MM3 Red Blood Count 4.54M/MM3 Hemoglobin 10.6GM/DL Hematocrit 36.0% Mean Corpuscular Volume 79.3UM3 Mean Corpuscular Hemoglobin 23.3UUG Mean Corpuscular Hemoglobin Concent 29.4GM/DL RDW Standard Deviation 54.1FL Platelet Count 253T/MM3 Mean Platelet Volume 10.1UM3 Immature Granulocyte % (Auto) 0.2% Neutrophils (%) (Auto) 57.2% Lymphocytes (%) (Auto) 30.5% Monocytes (%) (Auto) 9.0% Eosinophils (%) (Auto) 2.6% Basophils (%) (Auto) 0.5% Absolute Immature Granulocyte (auto 0.01T/MM3 Absolute Neutrophils (auto) 3.7T/MM3 Absolute Lymphocytes (auto) 2.0T/MM3 Absolute Monocytes (auto) 0.6T/MM3 Absolute Eosinophils (auto) 0.2T/MM3 Absolute Basophils (auto) 0.0T/MM3 Turbidity < 20 Sodium Level 146MEQ/L Potassium Level 4.2MEQ/L Chloride Level 108MEQ/L Carbon Dioxide Level 28MEQ/L Anion Gap 10MEQ/L Blood Urea Nitrogen 11.0MG/DL Creatinine 0.7MG/DL Glomerular Filtration Rate Calc 100 BUN/Creatinine Ratio 16RATIO Glucose Level 102MG/DL Calculated Osmolality 280MOSM/KG Calcium Level 10.6MG/DL Total Bilirubin 0.70MG/DL Icterus Index < 2 Aspartate Amino Transf (AST/SGOT) 13U/L Alanine Aminotransferase (ALT/SGPT) 20U/L Alkaline Phosphatase 86U/L Total Protein 7.2G/DL Albumin 3.9G/DL Globulin 3.3G/DL Albumin/Globulin Ratio 1.2RATIO Chemistry Specimen Hemolysis < 15 Medications Current ED Medications Lorazepam (Ativan) 1 mg O ONCE IV ; Start 01/20/17 at 23:15; Stop 01/20/17 at 23: 16; Status DC Progress Progress We had a very raffy discussion. I explained her that I had reviewed the chart and that she had been consistently identified as someone seeking narcotics. I am happy to take care of any medical issues she has, but will not be writing her any narcotics. Her CBC and CMP are appropriate to her normal, in that her hemoglobin is chronically below 11. She was given instructions to use hydrocortisone cream 0.5% daily for the hemorrhoids. This is much less expensive than Proctofoam and should be nearly as effective. She is welcome to use gabapentin if it helps with her chronic pain. She does have an appointment next week at a new primary care clinic. She can discuss this with them for rat exterminator use, hopefully will help. She will also discuss rectal bleeding at this visit. SELMA ROBERTS MD Jan 20, 2017 22:37
--- OUTSIDE RECORDS SUMMARY | 2017-01-20 22:41 | XMS REPORT ---
Author Author [place]/[facility], [facility] - Organization Unknown Address Unknown Phone [...] (5.0-8.0 ) Protein Negative (Negative ) Specific [place] 1.024 (1.003-1.030 ) Collection Type: Clean Catch Urobilinogen Negative mg/dL (-<1.0 mg/dL) Epithelial Cells 0-2 /HPF RBC 0-2 /HPF (0-2 /HPF) WBC 2-5 /HPF (0-4 /HPF)
--- OUTSIDE RECORDS SUMMARY | 2017-01-20 22:41 | XMS REPORT | Continuity of Care Document ---
Author Author [facility] Organization [facility] Address Unknown Phone Unavailable Care Team Providers Care Critical Care Transport Nurse Name Role Phone Sarah Poole Primary Care Physician [phone] Source Comments Some departments are not documenting in the electronic medical record. If you do not see the information that you expected, contact Release of Information in the Health Information Management department at [phone] for further assistance in locating additional records.[facility] Active Allergies and Adverse Reactions Allergen Noted [...] Taken Blood Pressure 123/80 11/11/2014 3:43 PM [employer] Pulse 75 11/11/2014 3:43 PM [employer] Temperature 36.4 C (97.6 F) 11/11/2014 3:43 PM [employer] Respiratory Rate 16 11/11/2014 3:43 PM [employer] Height 1.549 m (5' 1") 11/11/2014 3:43 PM [employer] Weight 106.595 kg (235 lb) 11/11/2014 3:43 PM [employer] Body Mass Index 44.43 11/11/2014 3:43 PM [employer] Oxygen Saturation 99% 08/20/2014 10:54 AM [employer] Plan of Care Health Maintenance Due Date Last Done Comments Physical (Comprehensive) 1996 Exam Pertussis Vaccine 2000 Tetanus Vaccine 2006 Cervical Cancer Screening 2010 Influenza Vaccine 06/17/2017 Results from Last 3 Months Not on file
--- OUTSIDE RECORDS SUMMARY | 2017-01-20 22:43 | XMS REPORT ---
Author Author [facility] Organization Unknown Address Unknown Phone Unavailable Care Team Providers Care Dredge Captain Name Role Phone UNASSIGNED DOCTOR , DOCTOR PP [phone] Reason For Visit Chief Complaint ABDM PAIN, [...] MG/DL (65-99 MG/DL) *GFR EST NON AFR [place] >90 ML/MIN *GFR EST AFR AMER >90 [...] PM* CULTURE URINE (Preliminary Result) Specimen Number: [id number] Sample Collection Date/Time: 10/25/2016 8:55 PM Specimen [...]
--- OUTSIDE RECORDS SUMMARY | 2017-01-20 22:44 | XMS REPORT ---
Author Author [facility] Organization Unknown Address Unknown Phone Unavailable Care Team Providers Care Flight Engineer Helicopter Name Role Phone UNASSIGNED DOCTOR , DOCTOR PP [phone] Reason For Visit Chief Complaint LEFT ARM [...] H (65-99 MG/DL) GFR EST NON AFR STATELESS >90 ML/MIN GFRA EST AFR AMER >90 [...] AM* Status: Final Result URINALYSIS Specimen Number: [id number] Sample Collection Date/Time: 04/09/2015 12:10 AM Specimen [...]
--- OUTSIDE RECORDS SUMMARY | 2017-01-20 22:45 | XMS REPORT | Referral Summary ---
Author Author [facility] Organization [facility] Address Unknown Phone Unavailable Care Team Providers Care Product Inspection Supervisor Name Role Phone Imelda Martin Primary Care Physician [phone] Encounter VC Date(s): 02/24/15 - 02/24/15 [facility] [address] [place] [address] Discharge Diagnosis: Abdominal pain Discharge Diagnosis: Hernia, hiatal Final: DIAPHRAGMATIC HERNIA WITHOUT MENTION OF OBSTRUCTION OR GANGRENE Discharge Disposition: 01-Home or Self Care Attending Physician: Cam Graham MD Admitting Physician: Cam Graham MD Vital Signs Most recent to 1 oldest [Reference Range]: Temperature Oral 36.6 degC [35.8-37.3 degC] (02/24/15 5:04 PM) Peripheral Pulse 89 bpm Rate [60-100 bpm] (02/24/15 11:29 PM) Respiratory Rate 20 br/min [14-20 br/min] (02/24/15 11:29 PM) Blood Pressure 97/69 mmHg [90-140/60-90 mmHg] (02/24/15 11:29 PM) SpO2 96 % (02/24/15 11:29 PM) Problem List Condition Effective Dates Status [...] pain, # 300 mL, 0 Refill(s), Pharmacy: [id number], 10 mL Oral q6hr,PRN:as needed for pain Start Date: 12/24/14 Status: Ordered Advair Diskus 250 mcg-50 mcg inhalation powder See Instructions, INHALE 1 PUFF BY INHALATION ROUTE 2 TIMES EVERY DAY IN THE MORNING AND EVENING APPROXIMATELY 12 HOURS APART, # 1 unknown unit, eRx: [id number], INHALE 1 PUFF BY INHALATION ROUTE 2 TIMES EVERY DAY IN THE MORNING AND EV... Start Date: 02/25/15 Status: Ordered albuterol 2.5 mg/3 mL (0.083%) inhalation solution 3 mL, Inhalation, q6hr (scheduled), # 60 Each, 1 Refill(s), Pharmacy: [id number], 3 mL Inhalation q6hr (scheduled) Start Date: 02/13/15 Status: Ordered Atrovent 42 mcg/inh nasal spray 2 sprays, Nasal, TID, # 2 Each, 5 Refill(s), Pharmacy: [id number] Start Date: 06/11/15 Stop Date: 06/11/16 Status: Ordered Carafate 1 g oral tablet 1 g 1 tabs, Oral, QID, Dissolve in water and drink, # 40 tabs, 0 Refill(s) Start Date: 08/31/15 Status: Ordered cetirizine 10 mg oral tablet 10 mg 1 tabs, Oral, Daily, # 30 tabs, 5 Refill(s), Pharmacy: [id number], 1 tabs Oral Daily Start Date: 09/01/15 Status: Ordered levETIRAcetam 500 mg oral tablet See Instructions, TAKE 3 TABLETS BY MOUTH TWICE DAILY, # 180 tabs, 12 Refill(s) , [id number], TAKE 3 TABLETS BY MOUTH TWICE DAILY Start Date: 02/27/15 Status: Ordered Linzess 290 mcg oral capsule 1 caps, Oral, Daily, # 30 caps, 6 Refill(s), Pharmacy: [id number], 1 caps Oral Daily Start Date: 02/24/15 Status: Ordered loratadine 10 mg oral tablet 10 mg, Oral, Daily, # 30 tabs, 5 Refill(s), Pharmacy: [facility] [id number] , 10 mg Oral Daily Start Date: [...] # 1 Each, 1 Refill(s), [id number] Start Date: 06/11/15 Status: Ordered traZODone Oral, [...] [Reference Range]: WBC [4.8-10.8 7.5 10*3/uL 10*3/uL] (02/24/15 8:42 PM) RBC [4.00-5.20 4.14 10*6/uL 10*6/uL] (02/24/15 8:42 PM) Hgb [12.0-16.0 11.4 gm/dL gm/dL] *LOW* (02/24/15 8:42 PM) Hct [37.0-47.0 %] 35.7 % *LOW* (02/24/15 8:42 PM) MCV [82.0-99.0 fL] 86.2 fL (02/24/15 8:42 PM) MCH [27.0-32.0 pg] 27.5 pg (02/24/15 8:42 PM) MCHC [32.0-36.0 31.9 gm/dL gm/dL] *LOW* (02/24/15 8:42 PM) RDW [11.5-14.5 %] 16.2 % *HI* (02/24/15 8:42 PM) Platelet [150-400 230 10*3/uL 10*3/uL] (02/24/15 8:42 PM) MPV [9.4-12.4 fL] 9.4 fL (02/24/15 8:42 PM) Neutrophils [51-75 62 % %] (02/24/15 8:42 PM) Lymphocytes [20-46 30 % %] (02/24/15 8:42 PM) Monocytes [4-11 %] 4 % (02/24/15 8:42 PM) Eosinophils [0-4 %] 4 % (02/24/15 8:42 PM) Basophils [0-2 %] 0 % (02/24/15 8:42 PM) Neutro Absolute 4.65 10*3 [1.90-7.00 10*3] (02/24/15 8:42 PM) Lymph Absolute 2.25 10*3 [0.80-3.30 10*3] (02/24/15 8:42 PM) [place] Absolute 0.30 10*3 [0.30-1.00 10*3] (02/24/15 8:42 PM) Eos Absolute 0.30 10*3 [0.00-0.50 10*3] (02/24/15 8:42 PM) Baso Absolute 0.00 10*3 [0.00-0.20 10*3] (02/24/15 8:42 PM) Hypochrom Occasional *ABN* (02/24/15 8:42 PM) Nucleated RBC 0.0 /100 WBC Automated [0 /100 (02/24/15 8:42 PM) WBC] Differential Manual *ABN* (02/24/15 8:42 PM) Chemistry Most recent to 1 oldest [Reference Range]: Sodium Lvl [136-144 138 mEq/L mEq/L] (02/24/15 8:42 PM) Potassium Lvl 4.6 mEq/L 1 [3.6-5.1 mEq/L] (02/24/15 8:42 PM) Chloride [99-109 105 mEq/L mEq/L] (02/24/15 8:42 PM) CO2 [22-32 mEq/L] 26 mEq/L (02/24/15 8:42 PM) AGAP [3-20] 7 (02/24/15 8:42 PM) BUN [4-20 mg/dL] 7 mg/dL (02/24/15 8:42 PM) Glucose Lvl [70-100 79 mg/dL mg/dL] (02/24/15 8:42 PM) Creatinine Lvl 0.63 mg/dL [0.44-1.03 mg/dL] (02/24/15 8:42 PM) eGFR [>60] >60 2 (02/24/15 8:42 PM) Calcium Lvl 8.8 mg/dL [8.6-10.0 mg/dL] (02/24/15 8:42 PM) Albumin Lvl [3.5-4.8 3.3 gm/dL gm/dL] *LOW* (02/24/15 8:42 PM) Total Protein 6.7 gm/dL [6.1-7.9 gm/dL] (02/24/15 8:42 PM) Globulin [1.9-4.3 3.4 gm/dL gm/dL] (02/24/15 8:42 PM) ALT [14-54 U/L] 11 U/L *LOW* (02/24/15 8:42 PM) AST [15-41 U/L] 18 U/L (02/24/15 8:42 PM) Alk Phos [26-104 78 U/L U/L] (02/24/15 8:42 PM) Bili Total [0.2-1.2 0.4 mg/dL 3 mg/dL] (02/24/15 8:42 PM) Lipase Lvl [8-48 18 U/L U/L] (02/24/15 8:42 PM) U Beta hCG Ql Negative [Negative] (02/24/15 6:15 PM) 1Result Comment: Hemolyzed specimen. The following tests may be affected: ALT, AST, Potassium, and Total Bilirubin. 02/24/2015 21:17 2Result Comment: Multiply eGFR results by 1.21 for race. 3Result Comment: Naproxen, specifically the metabolite O-desmethylnaproxen, may cause spurious elevation in Total Bilirubin levels. Urinalysis Most recent to 1 oldest [Reference Range]: UA Color Lt Yellow (02/24/15 6:15 PM) UA Appear Clear (02/24/15 6:15 PM) UA pH [5.0-8.0] 7.0 (02/24/15 6:15 PM) UA Leuk Est Negative [Negative] (02/24/15 6:15 PM) UA Nitrite Negative [Negative] (02/24/15 6:15 PM) UA Protein Negative [Negative] (02/24/15 6:15 PM) UA Glucose Negative [Negative] (02/24/15 6:15 PM) UA Ketones Negative [Negative] (02/24/15 6:15 PM) UA Urobilinogen Negative [<1.0] (02/24/15 6:15 PM) UA Bili [Negative] Negative (02/24/15 6:15 PM) UA Blood [Negative] Trace *ABN* (02/24/15 6:15 PM) UA Spec Grav 1.018 [1.003-1.030] (02/24/15 6:15 PM) Type Clean Catch (02/24/15 6:15 PM) UA WBC [0-4] 5-10 *ABN* (02/24/15 6:15 PM) UA RBC [0-2] 2-5 (02/24/15 6:15 PM) Epithelial Cells 5-10 (02/24/15 6:15 PM) UA Bacteria Rare (02/24/15 6:15 PM) UA Mucous Present (02/24/15 6:15 PM) Immunizations Vaccine Date Refusal Reason pneumococcal 23-polyvalent vaccine 11/18/14 Procedures Procedure Date Related Diagnosis Body Site Esophagogastroduodenoscopy Balloon Dilat1 02/14/15 Examination Under Anesthesia2 02/14/15 Adenoidectomy Bilateral tubal ligation Bronchoscope Cardiac catheterization, combined right and left heart Tonsillectomy Tympanostomy [place] tooth 1auto-populated from documented surgical case 2auto-populated from documented surgical case Social History Social History Type Response Smoking Status Former smoker; Type: Cigarettes; Tobacco use per day: 1 Pack1 1quit 05/2015 Assessment and Plan No data available for this section
--- OUTSIDE RECORDS SUMMARY | 2017-01-20 22:47 | XMS REPORT ---
Author Author [employer] Organization Unknown Address Unknown Phone Unavailable Care Team Providers Care Nurse Assistant Name Role Phone UNASSIGNED DOCTOR , DOCTOR PP [phone] Reason For Visit Chief Complaint STOMACH PAIN [...] MG/DL (65-99 MG/DL) *GFR EST NON AFR [place] >90 ML/MIN *GFRA EST AFR AMER >90 [...] PM* CULTURE URINE (Preliminary Result) Specimen Number: [id number] Sample Collection Date/Time: 02/16/2016 7:49 PM Specimen [...]
--- OUTSIDE RECORDS SUMMARY | 2017-01-20 22:47 | XMS REPORT ---
Author Author [place], [facility] - Organization Unknown Address Unknown Phone [...] (5.0-8.0 ) Protein Negative (Negative ) Specific [place] 1.006 (1.003-1.030 ) Collection Type: Clean Catch Urobilinogen Negative mg/dL (-<1.0 mg/dL) Bacteria Rare Epithelial Cells 2-5 /HPF WBC 0-2 /HPF (0-4 /HPF)
--- OUTSIDE RECORDS SUMMARY | 2017-01-20 22:48 | XMS REPORT ---
Author Author [place]/[facility], [facility] - Organization Unknown Address Unknown Phone [...] (5.0-8.0 ) Protein Negative (Negative ) Specific [place] 1.027 (1.003-1.030 ) Collection Type: Clean Catch Urobilinogen 1.0 mg/dL (-<1.0 mg/dL) Bacteria Occasional A Epithelial Cells 2-5 /HPF Mucus Present RBC 0-2 /HPF (0-2 /HPF) WBC 2-5 /HPF (0-4 /HPF)
--- OUTSIDE RECORDS SUMMARY | 2017-01-20 22:48 | XMS REPORT ---
Author Author [facility] Organization Unknown Address Unknown Phone Unavailable Care Team Providers Care Maxillofacial Prosthodontist Name Role Phone UNASSIGNED DOCTOR MD LOLIS DOCTOR PP [phone] Reason For Visit Chief Complaint NECK PAIN [...]
--- OUTSIDE RECORDS SUMMARY | 2017-01-20 22:49 | XMS REPORT | CCD ---
Author Author [place]/[facility], [facility] - Organization Unknown Address Unknown Phone [...]
--- OUTSIDE RECORDS SUMMARY | 2017-01-20 22:51 | XMS REPORT ---
Author Author [facility] Organization Unknown Address Unknown Phone Unavailable Care Team Providers Care Salesperson Art Objects Name Role Phone UNASSIGNED DOCTOR , DOCTOR PP [phone] Reason For Visit Chief Complaint CHEST PAIN [...] MG/DL (65-99 MG/DL) *GFR EST NON AFR [place] >90 ML/MIN *GFRA EST AFR AMER >90 [...]
--- OUTSIDE RECORDS SUMMARY | 2017-01-20 22:55 | XMS REPORT ---
Author Author [facility] Organization Unknown Address Unknown Phone Unavailable Care Team Providers Care Tank Tester Name Role Phone UNASSIGNED DOCTOR , DOCTOR PP [phone] Reason For Visit Chief Complaint LEFT ARM [...] H (65-99 MG/DL) GFR EST NON AFR [place] >90 ML/MIN GFRA EST AFR AMER >90 [...] AM* Status: Final Result URINALYSIS Specimen Number: [id number] Sample Collection Date/Time: 04/09/2015 12:10 AM Specimen [...]
--- NOTE | 2017-01-20 22:56 | NUR ---
LAB IN ROOM W/ PT FOR BLOOD DRAW.
--- OUTSIDE RECORDS SUMMARY | 2017-01-20 22:57 | XMS REPORT ---
Author Author [facility] Organization Unknown Address Unknown Phone Unavailable Care Team Providers Care Station Agent Name Role Phone UNASSIGNED DOCTOR , DOCTOR PP [phone] Reason For Visit Chief Complaint ABD PAIN [...] MG/DL (65-99 MG/DL) GFR EST NON AFR [place] >90 ML/MIN GFRA EST AFR AMER >90 [...] AM* Status: Final Result URINALYSIS Specimen Number: [id number] Sample Collection Date/Time: 05/08/2015 2:00 AM Specimen [...]
[2017-01-20] MEDS ORDERED: VENL25TA4 PO (23:00)
[2017-01-20 23:01] LABS: BASOPHILS % (AUTO) 0.5 % (0-2); EOSINOPHILS # (AUTO) 0.2 T/MM3 (0-0.5); EOSINOPHILS % (AUTO) 2.6 % (0-4); HGB - HEMOGLOBIN 10.6 GM/DL (12-16); IMMATURE GRANULOCYTE # (AUTO) 0.01 T/MM3 (0.00-0.03); IMMATURE GRANULOCYTE % (AUTO) 0.2 % (0.0-0.5); LYMPHOCYTES % (AUTO) 30.5 % (23-45); MEAN CORPUSCULAR HGB 23.3 UUG (26-34); MEAN CORPUSCULAR HGB CONC(MCHC 29.4 GM/DL (31-37); MEAN CORPUSCULAR VOLUME 79.3 UM3 (80-100); MEAN PLATELET VOLUME 10.1 UM3 (9.4-12.4); MONOCYTES # (AUTO) 0.6 T/MM3 (0-0.8); NEUTROPHILS #(AUTO)-ABSOLUTE 3.7 T/MM3 (1.8-7.7); NEUTROPHILS % (AUTO) 57.2 % (33-66); RED BLOOD COUNT 4.54 M/MM3 (4.00-5.20); WBC - WHITE BLOOD COUNT 6.4 T/MM3 (4.5-11.0)
[2017-01-20] MEDS ORDERED: CLON0.2T PO (23:01)
[2017-01-20 23:10] LABS: ALBUMIN 3.9 G/DL (3.5-5.0); ALBUMIN/GLOBULIN RATIO 1.2 RATIO (1.1-2.2); ALKALINE PHOSPHATASE 86 U/L (38-126); ALT (SGPT) 20 U/L (9-52); ANION GAP 10 MEQ/L (5-15); AST (SGOT) 13 U/L (14-36); BUN/CREATININE RATIO 16 RATIO (6-26); CALCIUM 10.6 MG/DL (8.4-10.2); CHLORIDE 108 MEQ/L (98-107); CO2 - CARBON DIOXIDE 28 MEQ/L (22-30); CREATININE 0.7 MG/DL (0.7-1.2); GLOMERULAR FILTRATION RATE 100; GLUCOSE 102 MG/DL (65-110); POTASSIUM 4.2 MEQ/L (3.6-5); SODIUM 146 MEQ/L (134-144); TOTAL PROTEIN 7.2 G/DL (6.3-8.2)
[2017-01-20] MEDS ORDERED: LORAZEPAM 2 MG/ML INJECTION IV ONE (23:15)
[2017-01-20] MEDS ORDERED: KETOROLAC 60mg/2ml INJECTION IM ONE (23:45)
[2017-01-20] MEDS ORDERED: GABA-336 PO (23:48)
[2017-01-21 00:27] VITALS: BP 118/61; PULSE 65; RESP 18; TEMP 98; O2SAT 99
--- NOTE | 2017-01-21 00:27 | NUR ---
DISCHARGE PT. GIVEN INSTRUCTIONS FOR CONT CARE OF RECTAL BLEEDING W/ RX X1 GABAPENTIN. PT VERBALIZED UNDERSTANDING AND SIGNED FORM. PT LEFT ER AMBULATORY W/O ASSIST, ALERT, VS CHARTED, PAIN REDUCED 7/10 AND NO ACUTE DISTRESS.
== END 2017-01-21 00:27 | disposition home or self-care (01) ==
LOC: ED 21:54
DX: K64.9 Unspecified hemorrhoids (principal); G89.29 Other chronic pain
CPT/HCPCS: 36415; 80053; 85025; 96372; 99283; J1885